=== PATIENT | female | born 1940 | race Caucasian/White ===

== ENCOUNTER 2017-10-01 14:11 | Emergency (ER) | payer MEDICARE, OTHER, SELFPAY ==
[2017-10-01 14:12] VITALS: BP 139/78; PULSE 78; RESP 20; TEMP 36.4; O2SAT 95; BMI 37.5
--- NOTE | 2017-10-01 14:43 | RAD_ITS ---
STUDY: X-RAY CHEST REASON FOR EXAM: Female, 77 years old. Sagittal onset of shortness of breath during chemotherapy. TECHNIQUE: Single AP portable view of the chest. COMPARISON: Comparison is made with prior study dated January 03, 2017. FINDINGS: A right-sided portacatheter is seen. The tip is in the proximal portion of the superior vena cava. Hyperinflation. Scattered calcified granulomas. No acute abnormality is seen. There is no demonstrated pleural abnormality. Sternal cerclage wires and vascular clips are present from a prior sternotomy and coronary artery bypass graft procedure (CABG). Normal mediastinum and vivek. Normal visualized pulmonary arteries. There is atherosclerotic calcification of the aortic arch with tortuosity. There are diffuse degenerative changes of the visualized thoracic spine. Normal visualized ribs, clavicles, and shoulders. There is no demonstrated abnormality of the visualized soft tissue structures of the upper abdomen. RAD/Chest 1 View (Portable) IMPRESSION: Hyperinflation. No acute abnormality is seen. Electronically Signed: Wang Holt MD at 15:19 EST Tel [phone], Service support ,
--- NOTE | 2017-10-01 14:44 | EKG12_ITS ---
Test Reason : SOB Blood Pressure : / mmHG Vent. Rate : 083 BPM Atrial Rate : 086 BPM P-R Int : 000 ms QRS Dur : 082 ms QT Int : 380 ms P-R-T Axes : 000 -40 047 degrees QTc Int : 446 ms Atrial fibrillation Left axis deviation Nonspecific ST abnormality Poor R wave progression Abnormal ECG Confirmed by SELINA CARVAJAL, ROCAEL ([id number]), editorial project manager NELL MCCOY ([id number]) on 10/02/2017 9:47:04 AM Referred By: MALIK Confirmed By:ROCAEL MARKS MD
[2017-10-01] MEDS: DiphenhydrAMINE 50 MG/ML Syringe 25 MG IV (15:06)
[2017-10-01] MEDS: 0.9% Normal Saline 1,000 ML 1000 ML IV (15:06)
[2017-10-01] MEDS: MethylPREDNISolone 125 MG/2 ML Vial IV (15:06)
[2017-10-01 15:10] VITALS: O2SAT 95
[2017-10-01 15:16] VITALS: PULSE 83; RESP 18; O2SAT 95
[2017-10-01] MEDS: Racepinephrine HCl 0.5 ML VIAL.NEB. 0.25 ML INHALATION (15:16)
[2017-10-01 16:22] VITALS: BP 142/70; PULSE 83; RESP 21; O2SAT 93
--- NOTE | 2017-10-01 16:31 | ED.VISSUMM ---
- ER Visit Summary Date of Service: 10/01/17 Chief Complaint: [Allergic reaction] History of Present Illness: The patient is a 77 F [who presents the emergency department with an allergic reaction. She was in oncology getting infusion of María uracil and 15 minutes after infusion started she got very short of breath started wheezing and felt like her throat was closing. She took her inhaler and by the time she arrived in the emergency department she was feeling somewhat better but if it did feel some heaviness in her chest and difficulty breathing. She had also gotten an infusion of oxaliplatin just prior to this. She has had anaphylaxis in the past requiring epinephrine. She has a history of coronary artery disease and status post CABG with stents. She has atrial fibrillation and is on Xarelto. She has metastatic colon cancer with metastases to the liver and lungs.] Physical Examination: [] Blood pressure 93 systolic pulse ox 92% on room air WN WD NAD PERRL EOMI MMM NECK supple and nontender, no masses RRR no murmur rub or gallop, no peripheral edema, symmetric radial pulses CTAB mild tachypnea, port right chest ABDOMEN is soft and nontender, normal bowel sounds, no distension, no rebound or guarding SKIN is warm and dry no rashes Alert and Oriented x3, CN II-XII in tact, no motor or sensory deficits, gait normal No lymphadenopathy Test Results: [] Emergency Department Course and Treatment: [EKG is atrial fibrillation at a rate of 83 there is no acute ischemic changes. Chest x-ray was unremarkable. She was given racemic epinephrine as well as Solu-Medrol and Benadryl. She was feeling improved but still had some slight heaviness in her chest. At that time I did send screening blood work and a flu swab that she said she has had a cough and runny nose for the past few days. Dr. Preston did evaluate her during this episode so they are aware of her reaction. I do anticipate that she will be discharged home. She will be reevaluated by oncoming physician.] Treatment Plan: [] Disposition: [Pending lab evaluation likely discharge] Impression: [Allergic reaction] This note was generated with [employer] dictation software. It may contain incorrect words, spelling, and punctuation that were not noted in review of the chart prior to signing ED Disposition - Plan for ED Patient: Chief Complaint: Allergic Reaction Referrals: Vernon Rosa MD [Primary Care Provider] -
--- NOTE | 2017-10-01 16:37 | ED.DEP ---
ED Disposition - Plan for ED Patient: Chief Complaint: Allergic Reaction Instructions: ED Allergic Reaction General Other Prescriptions: DiphenhydrAMINE [Benadryl] 25 mg PO TID PRN PRN #20 capsule PRN Reason: Allergies Prednisone [Deltasone] 40 mg PO DAILY #8 tablet Referrals: Sujit Vasquez DO [STAFF PHYSICIAN] -
[2017-10-01 16:52] LABS: Anion Gap 9 (5-15); BUN 15 mg/dL (7-18); BUN/Creat Ratio 10.7 RATIO (10-20); Calcium,Total 8.1 mg/dL (8.5-10.1); Chloride 103 mmol/L (98-107); EST Glomerular Filtration Rate 39 mL/min (>60); Est Glom Filt Rate - Afr Amer 47 mL/min (>60); Estimated Creatinine Clearance 27.46 ml/min; Glucose 228 mg/dL (74-106); Potassium 3.4 mmol/L (3.5-5.1); Sodium Level 137 mmol/L (136-145)
[2017-10-01 16:54] LABS: Absolute Neutrophil Count 1.1 X10^3/uL (2.0-7.7); Basophil# 0.01 X10^3/uL; Basophil% 0.6 % (0-1); Eosinophil# 0.01 X10^3/uL; Eosinophils% 0.6 % (0-5); Hemoglobin 11.2 g/dl (12.0-15.0); Lymphocyte % 25.6 % (19-41); Mean Corpuscular Hgb 31.1 pg (27.0-32.0); Mean Corpuscular Volume 97.2 fL (81-99); Mean Platelet Vol. 9.8 fl (6.2-12.0); Monocyte# 0.06 X10^3/uL; Monocyte% 3.8 % (0-10); Neutrophil # 1.07 X10^3/uL (2.7-7.7); Neutrophil % 68.8 % (47-70); Platelet Count 86 K/mm3 (150-450); RBC Distribution Width CV 14.5 % (11.6-14.6); RBC Distribution Width SD 51.3 fl (35.1-43.9); White Blood Count 1.6 K/mm3 (4.4-11.0)
[2017-10-01 16:56] LABS: Differential Indicated SCAN CRITERIA MET; POSITIVE COUNT NO; POSITIVE DIFFERENTIAL YES; POSITIVE MORPHOLOGY NO
--- NOTE | 2017-10-01 17:06 | ED.RN ---
rn received a call from lab. pt positive for flu a. dr. glez informed.
--- NOTE | 2017-10-01 17:54 | ED.DCSUM_ITS ---
- ER Visit Summary Date of Service: 10/01/17 Addendum: Patient was checked out to me by Dr. Guillory with labs pending. CBC has returned and her white count is 1.6 with 68.8% segmented neutrophils giving an absolute neutrophil count of 1088. H&H are 11.2 and 35.0, platelets are 86. Chem-7 is marked for potassium at 3.4, calcium 8.1, glucose of 228, creatinine 1.4. Troponin is negative. Chest x-ray shows no acute disease. She is positive for influenza A. Emergency department course: Patient's symptoms have resolved and she is resting comfortably. She was given a dose of Tamiflu p.o. Treatment plan: The patient was discussed with Dr. Vasquez. She will be discharged on Tamiflu instructed to follow-up with his office for further evaluation and treatment of the allergic reaction. Return to the emergency department for any worsening symptoms. Disposition: To home in improved and stable condition. Impression: 1. Allergic reaction. 2. Influenza A. 3. Pancytopenia. 4. Colon cancer with metastases on chemotherapy. This note was generated with [employer] software. It may contain incorrect words, spelling, and punctuation that were not noted in review of the chart prior to signing ED Disposition - Plan for ED Patient: Chief Complaint: Allergic Reaction Instructions: ED Allergic Reaction General Other, ED Flu Prescriptions: DiphenhydrAMINE [Benadryl] 25 mg PO TID PRN PRN #20 capsule PRN Reason: Allergies Prednisone [Deltasone] 40 mg PO DAILY #8 tablet Oseltamivir Phosphate [Tamiflu] 75 mg PO BID #10 capsule Referrals: Sujit Vasquez DO [STAFF PHYSICIAN] - 3-5 Days
[2017-10-01] MEDS: Oseltamivir Phosphate 75 MG Capsule PO (18:09)
[2017-10-01 18:16] VITALS: BP 143/71; PULSE 81; RESP 16; O2SAT 97
--- NOTE | 2017-10-01 18:18 | ED.RN ---
PT GIVEN WRITTEN AND VERBAL DISCHARGE INSTRUCTIONS AND HOME GOING PRESCRIPTIONS. THIS RN REVIEWED THEM WITH PT AND SPOUSE. PT VERBALIZES UNDERSTANDING. PT DENIES ANY QUESTIONS. PORT DEACCESSED BY THIS RN AND COVERED WITH 2X2 GAUZE DRESSING. MINIMAL BLEEDING NOTED. PT DRESSES SELF WITHOUT ASSISTANCE. WHEELED BY CHARGE NURSE TO FAMILY VEHICLE.
[2017-10-02 14:52] LABS: Pathologist Review Reviewed
== END 2017-10-01 18:20 | disposition home or self-care (01) ==
PROVIDERS: Emergency Provider Emergency Medicine; Family Provider Family Medicine; PCP Family Medicine
DX: R06.02 Shortness of breath (principal); T50.995A Adverse effect of other drugs, medicaments and biological substances, initial encounter; Y92.9 Unspecified place or not applicable; J10.1 Influenza due to other identified influenza virus with other respiratory manifestations; D61.818 Other pancytopenia; C18.9 Malignant neoplasm of colon, unspecified; C78.7 Secondary malignant neoplasm of liver and intrahepatic bile duct; C78.00 Secondary malignant neoplasm of unspecified lung; E66.9 Obesity, unspecified; I48.91 Unspecified atrial fibrillation; I25.10 Atherosclerotic heart disease of native coronary artery without angina pectoris; Z95.828 Presence of other vascular implants and grafts; Z95.1 Presence of aortocoronary bypass graft; Z95.5 Presence of coronary angioplasty implant and graft; Z87.892 Personal history of anaphylaxis; Z79.82 Long term (current) use of aspirin; Z79.01 Long term (current) use of anticoagulants; Z79.899 Other long term (current) drug therapy
CPT/HCPCS: 36591; 71045; 80048; 84484; 85025; 87804; 93005; 94640; 96361; 96374; 96375; 99285; J7030; A4216

== ENCOUNTER → 2017-10-18 09:57 | Outpatient (CLI) | payer MEDICARE, OTHER, SELFPAY ==
[2017-01-03 12:23] VITALS: BP 100/59; BP 100/64; BP 108/66
[2017-10-01 14:12] VITALS: BMI 37.5
[2017-10-01 18:16] VITALS: BP 143/71
--- NOTE | 2017-10-18 09:59 | CDU_ITS ---
Reason For Study: carotid stenosis Rt. Velocities/BP Lt. Velocities/BP Prox CCA 97.9/21.1 cm/sec. Prox CCA 106/18.9 cm/sec. Mid CCA 66.3/17.0 cm/sec. Mid CCA 73.9/19.3 cm/sec. Dist CCA 59.2/12.9 cm/sec. Dist CCA 75.0/15.2 cm/sec. Prox ICA 96.7/29.9 cm/sec. Prox ICA 79.7/25.2 cm/sec. Mid ICA 101/35.8 cm/sec. Mid ICA 101/30.5 cm/sec. Dist ICA 90.9/29.9 cm/sec. Dist ICA 79.2/24.6 cm/sec. Rt. ICA/CCA = 1.5. Lt. ICA/CCA = 1.4. Prox ECA 85.6/8.64 cm/sec. Prox ECA 79.2/7.62 cm/sec. Rt. Vert. 40.9/11.4 cm/sec. Lt. Vert. 40.7/12.9 cm/sec. Right Extracranial There is homogeneous, smooth atherosclerotic plaque noted in the right common carotid artery. There is heterogeneous, irregular atherosclerotic plaque noted in the right internal carotid artery. There is heterogeneous, irregular atherosclerotic plaque noted in the right external carotid artery. Antegrade flow is noted in the right vertebral artery. Left Extracranial There is intimal thickening but no significant atherosclerotic plaque noted in the left common carotid artery. There is homogeneous, smooth atherosclerotic plaque noted in the left internal carotid artery. There is intimal thickening but no significant atherosclerotic plaque noted in the left external carotid artery. Antegrade flow is noted in the left vertebral artery. Procedure Carotid Duplex 45068. The exam was diagnostic. Exam performed in department. Interpretation Summary Mild (<50%) stenosis right extracranial internal carotid. Mild (<50%) stenosis left extracranial internal carotid. Flow within the vertebral arteries is antegrade bilaterally. Ordering Physician: CHOCO ABDALLA Performed By: Madhav Hobbs RVT
== END ==
PROVIDERS: Family Provider Family Medicine; PCP Family Medicine; Visit Provider Surgery Vascular Surgery
DX: I25.10 Atherosclerotic heart disease of native coronary artery without angina pectoris (principal); I65.23 Occlusion and stenosis of bilateral carotid arteries
CPT/HCPCS: 93880

== ENCOUNTER → 2017-11-20 10:54 | Outpatient (CLI) | payer MEDICARE, OTHER, SELFPAY ==
--- NOTE | 2017-11-20 11:30 | BRBX_PTH ---
PATIENT: DIANA COKER LOC: [facility] U#:[id number] AGE/SX: 84/F ROOM: RE11/20/[address]: Dr. Watson Elmore MD : 1940 BED: DIS: SPEC #: [id number] RECD: 11/20/17 12:16 STATUS: WILIAN JULITA #: [id number] NOLA: 11/20/17 11:[address]: Watson Elmore DEPT: SURGICAL PATHOLOGY RECD BY: Watson Barclay ENTERED: 11/20/17 13:12 SP TYPE: BREAST BX OTHR DR: Dr. Vernon Rosa MD Tissues: Left breast, NOS Procedures: Surgery Specimen Level IV HEADER OPERATION: Left stereotactic breast biopsy PRE-OP DIAGNOSIS: Left breast, 9 o?clock anterior depth, microcalcifications TISSUE SUBMITTED: Left breast core tissue ISCHEMIC TIME: 1 minute FIXATION TIME: 8 hours MICROSCOPIC DIAGNOSIS Left breast, 9 o?clock anterior depth, stereotactic core biopsy: Fibrocystic change. Focal intraductal hyperplasia without atypia. Hyalinized nodule with clustered microcalcifications. No evidence of malignancy. AM:carmen 11/21/17 MICROSCOPIC DESCRIPTION Slides are reviewed. GROSS DESCRIPTION Received is one container labeled with the patient's name and not further designated. The specimen consists of multiple elongated fragments of theodore-yellow fibroadipose tissue that in aggregate measure 5 x 3 x 0.6 cm. The entire specimen is submitted in four cassettes. / WINSTON:carmen 11/20/17 TC:5 CPT: 06051
--- NOTE | 2017-11-20 12:14 | OP.PCM_ITS ---
Report of Operation Date of Procedure: 11/20/17 Pre-Operative Diagnosis: left medical breast microcalcifications Post-Operative Diagnosis: left medical breast microcalcifications - successful biopsy Surgery/Procedure Performed:: left breast stereotactic biopsy with specimen radiograph and marker placement nuclear process engineer: None Type of Anesthesia:: Local Specimen's removed: left breast tissue Description of Procedure: The patient was brought to the stereotactic suite and informed of the plan course of events. The left breast was positioned in the true medial to lateral position on the Perera stereotactic table. Mammographic image demonstrated the area of abnormality to be located in the center of the radiograph. Stereotactic images were then obtained which demonstrated good positioning of the abnormality for biopsy with good stroke leida parameters. The breast was cleaned with Betadine area did one percent lidocaine was used to anesthetize the skin and a small stab incision made. An 8-gauge mammotome needle was placed into the pre-fire position. Stereotactic images demonstrated good positioning around the planned biopsy site. Local anesthetic injected deeply in the breast. The needle was deployed. Post deployment images demonstrated good positioning of the planned biopsy site. Multiple vacuum-assisted samples were obtained and [id number] fashion. Specimen radiograph demonstrated micro-calcifications in the sample. A gel marker clip was deployed. Post biopsy images demonstrated good position of the clip relative the biopsy cavity. The breast was removed from compression. Steri-Strips and a dressing applied. Post procedure mammogram images were obtained.
== END ==
PROVIDERS: Family Provider Family Medicine; PCP Family Medicine; Visit Provider Surgery
DX: N60.12 Diffuse cystic mastopathy of left breast (principal); N60.92 Unspecified benign mammary dysplasia of left breast; R92.0 Mammographic microcalcification found on diagnostic imaging of breast
CPT/HCPCS: 19081; 88305; J7050; A4648

== ENCOUNTER 2017-12-13 11:56 | Emergency (ER) | payer MEDICARE, OTHER, SELFPAY ==
[2017-12-13 11:57] VITALS: BP 144/71; PULSE 62; RESP 15; TEMP 35.9; O2SAT 97; BMI 38.4
--- NOTE | 2017-12-13 12:22 | EKG12_ITS ---
Test Reason : JAW PAIN Blood Pressure : / mmHG Vent. Rate : 068 BPM Atrial Rate : 107 BPM P-R Int : 000 ms QRS Dur : 082 ms QT Int : 418 ms P-R-T Axes : 000 -31 014 degrees QTc Int : 444 ms Atrial fibrillation Left axis deviation Low voltage QRS Poor R wave progression Abnormal ECG Confirmed by SELINA CARVAJAL, ROCAEL ([id number]), scientific editor NELL MCCOY ([id number]) on 12/18/2017 3:26:45 PM Referred By: FELECIA/LIANNE Confirmed By:ROCAEL MARKS MD
[2017-12-13 12:24] VITALS: BP 123/55; BP 130/80; BP 139/74; PULSE 60; PULSE 70; PULSE 84
--- NOTE | 2017-12-13 12:35 | RAD_ITS ---
STUDY: X-RAY CHEST REASON FOR EXAM: Female, 77 years old. Shortness of breath and dizziness. TECHNIQUE: Single AP portable view of the chest. COMPARISON: Comparison is made with prior study dated October 01, 2017. FINDINGS: A right-sided portacatheter is seen with the tip at the junction of the superior vena cava and right atrium. EKG electrodes are seen. Scattered calcified granulomas. There is no demonstrated pleural abnormality. Sternal cerclage wires and vascular clips are present from a prior sternotomy and coronary artery bypass graft procedure (CABG). Normal mediastinum and vivek. Normal visualized pulmonary arteries. There is atherosclerotic calcification of the aortic arch with tortuosity. There are diffuse degenerative changes of the visualized thoracic spine. Normal visualized ribs, clavicles, and shoulders. There is no demonstrated abnormality of the visualized soft tissue structures of the upper abdomen. RAD/Chest 1 View (Portable) IMPRESSION: No acute adenopathy is seen. Electronically Signed: Wang Holt MD at 12:58 EDT Tel [phone], Service support ,
--- NOTE | 2017-12-13 13:15 | ED.VISSUMM ---
- ER Visit Summary Date of Service: 12/13/17 Chief Complaint: Vertigo History of Present Illness: The patient is a [address] Bledsoe, Dr. Cage, and Dr. Vernon Rosa. She reports this morning approximately 810 she had been standing for a few minutes when she had an episode where she felt very lightheaded and had a sense of movement. This lasted 2-3 minutes. It resolved with sitting down. She reports that approximately 30 minutes later she had tingling in her jaw bilaterally and tightening in the muscles of her jaw. She denies any chest pain or shortness of breath during this. She denies any change in her vision. No numbness or tingling. She does have generalized weakness. Patient is currently on chemotherapy for colon cancer and finished a 3 day course yesterday. She denies any fever. No sore throat. She has a chronic cough is unchanged. No abdominal pain. She has had nausea without vomiting or diarrhea. No dysuria or frequency. Physical Examination: Vitals: Stable. Afebrile. General: Well-nourished and well-developed. Head: Normocephalic atraumatic. Neck: Supple, no lymphadenopathy. No JVD. Nontender. Cardiovascular: Regular rate and rhythm. No murmurs. Respiratory: No respiratory distress. Clear to auscultation bilaterally. Abdominal: Soft, nontender, nondistended, normal bowel sounds. No guarding, rebound, or peritoneal signs. Back: Nontender. Extremities: Nontender, no edema. Skin: Normal color, no rash. Neurologic: Alert and oriented ?3. Cranial nerves II through XII are intact. Normal strength and sensation. Psych: Normal affect. Test Results: Patient was seen by Dr. Vasquez in the office prior to arrival and had blood work obtained. CBC was remarkable for a white count of 2.4 and an H&H 11.0 34.0. Chem-7 is marked for glucose of 242 and BUN 27. Magnesium was normal. In the emergency department EKG was obtained shows atrial fibrillation rate of 60 with no ischemic changes. This was unchanged from September 2017. Troponin was negative. Chest x-ray shows chronic changes. Emergency Department Course and Treatment: Patient had positive orthostatic vital signs here. Heart rate increased from 60-84 with standing and she was lightheaded. Her blood pressure was stable however. She is given a 500 cc bolus of normal saline. Treatment Plan: Patient feels improved and would like to go home. She will be discharged instructions to follow-up Dr. Vasquez as previous scheduled. Follow-up Dr. Vernon Rosa in 1-2 days if not improving. Return to the emergency department for any worsening symptoms. Disposition: To home in improved and stable condition. Impression: 1. Orthostatic hypotension. 2. Coagulopathy on Xarelto. 3. Atrial fibrillation. 4. Colon cancer on chemotherapy. This note was generated with [employer] dictation software. It may contain incorrect words, spelling, and punctuation that were not noted in review of the chart prior to signing ED Disposition - Plan for ED Patient: Disposition: Home or Assisted Living Chief Complaint: Dizziness Instructions: ED Hypotension Orthostatic Referrals: Vernon Rosa MD [Primary Care Provider] - 1-2 Days if not improving Sujit Vasquez DO [STAFF PHYSICIAN] - Keep Paul appointment
[2017-12-13 13:43] VITALS: BP 120/62; PULSE 63; RESP 21; O2SAT 97
--- NOTE | 2017-12-13 13:44 | ED.RN ---
THIS NURSE REVIEWED D/C INSTRUCTIONS WITH PT. PT VERBALIZED UNDERSTANDING OF INSTRUCTIONS. PORT DE-ACCESSED. PT TOLERATED WELL. PT DENIES FURTHER NEEDS OR QUESTIONS AT THIS TIME.
== END 2017-12-13 13:45 | disposition home or self-care (01) ==
PROVIDERS: Emergency Provider Emergency Medicine; Family Provider Family Medicine; PCP Family Medicine
DX: I95.1 Orthostatic hypotension (principal); D68.9 Coagulation defect, unspecified; Z79.01 Long term (current) use of anticoagulants; I48.91 Unspecified atrial fibrillation; C18.9 Malignant neoplasm of colon, unspecified; R60.0 Localized edema; I25.10 Atherosclerotic heart disease of native coronary artery without angina pectoris; J45.909 Unspecified asthma, uncomplicated; E11.9 Type 2 diabetes mellitus without complications; I10 Essential (primary) hypertension; E78.00 Pure hypercholesterolemia, unspecified; G47.33 Obstructive sleep apnea (adult) (pediatric); Z85.3 Personal history of malignant neoplasm of breast; Z95.1 Presence of aortocoronary bypass graft; Z79.82 Long term (current) use of aspirin; Z79.899 Other long term (current) drug therapy
CPT/HCPCS: 36591; 71045; 84484; 93005; 96360; 99283; J7040; A4216

== ENCOUNTER 2017-12-24 21:08 | Emergency (ER) | payer MEDICARE, OTHER, SELFPAY ==
[2017-12-24 21:09] VITALS: BP 154/99; PULSE 79; RESP 18; TEMP 36.6; O2SAT 95; BMI 39.6
--- NOTE | 2017-12-24 21:52 | EKG12_ITS ---
Test Reason : FATIGUE Blood Pressure : / mmHG Vent. Rate : 071 BPM Atrial Rate : 288 BPM P-R Int : 000 ms QRS Dur : 082 ms QT Int : 406 ms P-R-T Axes : 000 -23 022 degrees QTc Int : 441 ms Atrial fibrillation Leftward axis Poor R wave progression Confirmed by LESLIE VIGIL ([id number]), society editor NELL MCCOY ([id number]) on 12/26/2017 9:36:59 AM Referred By: DIPIKA Confirmed By:LESLIE VIGIL
--- NOTE | 2017-12-24 21:55 | RAD_ITS ---
STUDY: X-RAY CHEST REASON FOR EXAM: Female, 77 years old. Lung cancer TECHNIQUE: Single frontal view COMPARISON: December 13 2017 FINDINGS: Sternotomy wires over the mediastinum. Right venous port with tip at the mid SVC level. The lungs are expanded. Stable right lung base calcified granuloma. Cardiomegaly.. Normal mediastinum and vivek. Normal visualized pulmonary arteries. Calcified aortic arch and descending thoracic aorta. Mild degenerative changes and scoliosis of the thoracic spine. Normal visualized ribs, clavicles, and shoulders. There is no demonstrated abnormality of the visualized soft tissue structures of the upper abdomen. RAD/Chest 1 View (Portable) IMPRESSION: Stable right lung base calcified granuloma. Stable cardiomegaly. Electronically Signed: Polo Herrera DO at 22:11 EDT Tel [phone], Service support ,
[2017-12-24] MEDS: 0.9% Normal Saline 1,000 ML 1000 ML IV (22:15)
[2017-12-24 22:38] LABS: Absolute Lymphocyte Count 0.33 X10^3/ul (0.83-4.51); Absolute Neutrophil Count 1.2 X10^3/uL (2.0-7.7); Hematocrit 32.1 % (37-47); Hemoglobin 10.4 g/dl (12.0-15.0); Lymphocyte # 0.33 X10^3/ul (4.0); Lymphocyte % 21.6 % (19-41); Mean Corp Hgb Conc 32.4 g/gl (32-36); Mean Corpuscular Hgb 32.8 pg (27.0-32.0); Mean Corpuscular Volume 101.3 fL (81-99); Mean Platelet Vol. 9.6 fl (6.2-12.0); Monocyte# 0.02 X10^3/uL; Monocyte% 1.3 % (0-10); Neutrophil # 1.18 X10^3/uL (2.7-7.7); Neutrophil % 77.1 % (47-70); Platelet Count 172 K/mm3 (150-450); RBC Distribution Width CV 15.5 % (11.6-14.6); RBC Distribution Width SD 57.2 fl (35.1-43.9); Red Blood Count 3.17 M/mm3 (4.2-5.4); White Blood Count 1.5 K/mm3 (4.4-11.0)
[2017-12-24 22:40] LABS: Differential Indicated SCAN CRITERIA MET; POSITIVE COUNT NO; POSITIVE DIFFERENTIAL YES; POSITIVE MORPHOLOGY NO
[2017-12-24 22:44] LABS: ALB/GLOB Ratio 0.9 RATIO (0.9-2.4); AST(SGOT) 32 U/L (15-37); Alanine Aminotransfer ALT/SGPT 46 U/L (13-56); Albumin, Serum 3.3 g/dL (3.2-5.0); Alkaline Phosphatase 187 U/L (45-117); Anion Gap 8 (5-15); BUN 22 mg/dL (7-18); BUN/Creat Ratio 13.9 RATIO (10-20); Calcium,Total 9.2 mg/dL (8.5-10.1); Chloride 102 mmol/L (98-107); Creatinine, Serum 1.58 mg/dL (0.55-1.02); EST Glomerular Filtration Rate 34 mL/min (>60); Est Glom Filt Rate - Afr Amer 41 mL/min (>60); Estimated Creatinine Clearance 25.45 ml/min; Globulin 3.7 g/dL (2.2-4.2); Glucose 193 mg/dL (74-106); Potassium 4.1 mmol/L (3.5-5.1); Sodium Level 136 mmol/L (136-145)
--- NOTE | 2017-12-24 22:54 | ED.DCSUM_ITS ---
- ER Visit Summary Date of Service: 12/24/17 Chief Complaint: Weakness, fatigue History of Present Illness: The patient is a 77 F presents to the emergency department with transient weakness and fatigue. The patient has a history of metastatic cancer. She is on chemotherapy. This is her fourth round of treatment. She has been following with Dr. Vasquez. She had her infusion today. She states that about 5:00, she just felt like she was mildly short of breath and lightheaded and dizzy. States it lasted about 5 minutes. It then returned at about 9:00 tonight. States that it lasted another 5 minutes and then went away. She states she had the same symptoms before during her treatment when she was found to be dehydrated. She denies any chest pain. She has had cough, but states this is chronic. She has had no productive sputum. She denies any fevers. She denies any chills or sweats. She denies any other systemic symptoms. On arrival, she states that she feels back to baseline. Physical Examination: Vital signs reviewed General: Well-nourished, well-developed Head: Normocephalic, atraumatic Eyes: Pupils equal and reactive, extraocular muscles intact Neck, supple, no lymphadenopathy Heart: Regular rate and rhythm Respiratory: No distress, clear bilaterally Abdomen: Soft, nontender, nondistended, no peritoneal signs Back: Nontender Extremities: Nontender, no edema, no cords Skin: Normal color no rash Neuro: Alert and oriented, no focal or lateralizing deficits Test Results: [] Emergency Department Course and Treatment: The patient's symptoms have basically resolved on arrival. She was given IV fluids. I did obtain some screening labs. Her white blood cells are diminished 1.5, but absolute neutrophil count is greater than thousand. She has had no fever or other infectious symptoms. She does have some evidence of dehydration with a creatinine of 1.6. The patient was aggressively hydrated. She has had improvement of symptoms and no recurrence. She has a benign reassuring exam. I do feel that this is more likely a side effect from her chemotherapy. The patient wants to attempt outpatient therapy and I feel this is reasonable. She will be discharged home. Treatment Plan: [] Disposition: Discharge Impression: 1. Dehydration secondary to chemotherapy This note was generated with [employer] software. It may contain incorrect words, spelling, and punctuation that were not noted in review of the chart prior to signing ED Disposition - Plan for ED Patient: Chief Complaint: Fatigue Instructions: ED Weakness [facility]O Referrals: Vernon Rosa MD [Primary Care Provider] -
[2017-12-24 23:02] LABS: Differential Comment SCANNED
[2017-12-24 23:53] VITALS: BP 145/79; PULSE 65; RESP 20; O2SAT 95
[2017-12-25 14:28] LABS: Pathologist Review Reviewed
== END 2017-12-24 23:54 | disposition home or self-care (01) ==
LOC: ED 22:09
PROVIDERS: Emergency Provider Emergency Medicine; Family Provider Family Medicine; PCP Family Medicine
DX: E86.0 Dehydration (principal); Z79.899 Other long term (current) drug therapy; C80.1 Malignant (primary) neoplasm, unspecified; Z85.3 Personal history of malignant neoplasm of breast; Z79.82 Long term (current) use of aspirin
CPT/HCPCS: 71045; 80053; 85025; 93005; 96360; 96361; 96365; 96366; 99284; J7030; A4216

== ENCOUNTER 2018-01-16 07:56 | Day surgery (SDC) | payer MEDICARE, OTHER, SELFPAY ==
[2018-01-16] VITALS (7 sets, daily range): BP systolic 108–142; BP diastolic 58–75; PULSE 75–100; RESP 16; TEMP 36.1–36.7; O2SAT 95–97; BMI 37.4
--- NOTE | 2018-01-16 | BREAST_PTH ---
PATIENT: DIANA COKER LOC: [facility] U#:[id number] AGE/SX: 77/F ROOM: RE01/16/[address]: Dr. Watson Elmore MD : 1940 BED: DIS: 01/16/2018 SPEC #: [id number] RECD: 01/16/18 15:36 STATUS: WILIAN JULITA #: [id number] NOLA: 01/16/18 00:[address]: Watson Elmore DEPT: SURGICAL PATHOLOGY RECD BY: Sidney Diaz ENTERED: 01/17/18 08:14 SP TYPE: BREAST OTHR DR: Dr. Vernon Rosa MD Tissues: Left breast, NOS Procedures: Surgery Specimen Level V HEADER OPERATION: Left intraoperative ultrasound-guided needle placement PRE-OP DIAGNOSIS: Left nipple discharge; questionable intraductal papilloma TISSUE SUBMITTED: Left breast biopsy tissue, wire is medial to lateral, suture is superficial FIXATION TIME: 48 hours MICROSCOPIC DIAGNOSIS Left breast, needle localization biopsy: Fatty breast tissue with focal ductal dilation. Negative for atypia or malignancy. SJ:carmen 01/22/18 COMMENT Correlation with clinical, radiologic findings and appropriate follow up are necessary. Please make reference to previous specimen ([id number]) left breast, 9 o?clock, stereotactic core biopsy with diagnosis of fibrocystic change and focal intraductal hyperplasia without atypia and hyalinized nodule with clustered microcalcifications and no evidence of malignancy and ([id number]) left breast, stereotactic core biopsy with diagnosis of ductal carcinoma in situ. MICROSCOPIC DESCRIPTION Slides are reviewed. GROSS DESCRIPTION Received in fixative is one container labeled with the patient's name and designated left breast. The specimen consists of a piece of theodore-yellow fibroadipose tissue measuring 3.5 x 2 x 1.5 cm. The specimen is oriented as follows: suture is superficial and wire is medial to lateral. The specimen is inked as follows: anterior ? yellow, posterior ? black, superior ? blue, inferior ? green, medial ? orange, lateral ? red. The specimen is serially sectioned and no obvious mass lesion is identified. The entire specimen is submitted in six cassettes. Cassette 1 contains the most medial portion of the specimen and cassette 6 contains the most lateral portion of the specimen. The specimen will be submitted after infusion cycle. / WINSTON:carmen 01/17/18 TC:5 CPT: 16425
[2018-01-16] MEDS: Clindamycin 600 MG/50 ML BAG 100 MG IV (09:38)
[2018-01-16] MEDS: Bupivacaine Mpf 0.5% 30 ML VIAL (10:30)
--- NOTE | 2018-01-16 10:36 | OP.PCM_ITS ---
Report of Operation Date of Procedure: 01/16/18 Pre-Operative Diagnosis: LEFT NIPPLE DISCHARGE, ? INTRADUCTAL PAPILLOMA Post-Operative Diagnosis: LEFT NIPPLE DISCHARGE, ? INTRADUCTAL PAPILLOMA - SUCCESSFUL BIOPSY Surgery/Procedure Performed:: LEFT ULTRASOUND GUIDED NEEDLE LOCALIZATION EXCISIONAL BREAST BIOPSY telecom sales consultant: Demetris Doan Type of Anesthesia:: General Anesthesiologist: Patrick Mcneil ASA3 Specimen's removed: left breast Estimated Blood Loss (mL): minimal Fluids Replaced: 400 Description of Procedure: The patient was then brought to the operative suite. Sign was performed verifying patient, site, position, SCIP antibiotic prophylaxis-clindamycin 600 mg due to penicillin allergy was given and DVT prophylaxis with SCDs. Following LMA anesthesia, ultrasound was then used to evaluate the abnormality in the medial aspect of the left breast just at the margin of the nipple areolar complex, slightly inferior and medial. The 4 mm abnormality was identified and a Kopan's wire was placed under ultrasound guidance just deep to the abnormality.and the limits of the mass and planned resection were marked on the skin using ultrasound guidance. the proper breast-left breast are marked in the holding area prior to the patient being brought back. A curvilinear incision was made at the nipple areolar complex and dissection carried down to subcutaneous breast tissue and then flared out such that a good margin would be obtained in all axes. When the specimen was removed, the wire came from the medial to lateral aspect. A solitary suture was placed at the superficial site just posterior to the skin of the nipple area complex. There were felt to be good resection margins.. The specimen was then brought to the pathology department for permanent evaluation. breast tissue just below the skin was reapproximated with interrupted 3-0 Vicryl sutures. Skin was closed with 5-0 Biosyn running subcuticular suture. Dermabond was applied to the skin the patient was awakened and brought to recovery in stable condition.
--- NOTE | 2018-01-16 10:37 | PCM.DCBBX ---
Discharge Diet: No Restrictions Discharge Activity: Return to Normal Activity May shower in (days): 3 Remove Dressing in (days):: 3 - Leave Dermabond in place. Allergies/Adverse Reactions: Allergies hunt Allergy (Verified 01/09/18 14:18) Shortness of breath nadolol [From Corgard] Allergy (Verified 01/09/18 14:18) Hives Penicillins Allergy (Verified 01/09/18 14:18) Hives pitavastatin [From Livalo] Allergy (Verified 01/09/18 14:18) myalgia pravastatin sodium [From Pravachol] Allergy (Verified 01/09/18 14:18) Hives sulfite Allergy (Verified 01/09/18 14:18) Hives atorvastatin calcium [From Lipitor] Adverse Reaction (Verified 01/09/18 14:18) Pain in joints morphine Adverse Reaction (Verified 01/09/18 14:18) chest pain CHEST PAINS AND SOB Medications to take at Discharge Aspirin 81 mg PO DAILY 01/03/17 Cholecalciferol (Vitamin D3) [Vitamin D3] 4,000 unit PO DAILY 01/03/17 Mometasone Furoate [Asmanex 220 mcg Twisthaler] 2 puff INHALATION DAILY 01/03/17 acetaminophen 500 mg tablet 1,000 mg PO PRN PRN tab 08/17/17 albuterol sulfate HFA 90 mcg/actuation aerosol inhaler 2 puff INHALATION Q4H PRN PRN 16 Days #18 08/17/17 diphenhydramine 25 mg capsule 50 mg PO PRN PRN 0 Days 08/17/17 epinephrine 0.3 mg/0.3 mL injection, auto-injector 0.3 ml SC PRN PRN 1 Days #2 ea 08/17/17 hydrocortisone 2.5 % topical cream 1 applic TOPICAL TID PRN PRN 10 Days #30 08/17/17 loratadine 10 mg tablet 10 mg PO DAILY PRN PRN 0 Days 08/17/17 montelukast 10 mg tablet 10 mg PO QDAY PRN tab 08/17/17 isosorbide mononitrate ER 60 mg tablet,extended release 24 hr 60 mg PO DAILY #90 tab 08/21/17 lisinopril 10 mg tablet 10 mg PO DAILY #90 tab 08/21/17 magnesium oxide 400 mg tablet 400 mg PO BID #180 tab 08/21/17 nitroglycerin 0.4 mg sublingual tablet 0.4 mg SUBLINGUAL Q5M PRN #25 tab 08/21/17 omeprazole 20 mg tablet,delayed release 20 mg PO DAILY #90 tab 09/25/17 Clotrimazole/Betamethasone Dip [Lotrisone Cream] 1 applic TP BID 10/01/17 Potassium Chloride [Klor-Con M20] 20 meq PO DAILY 10/01/17 rivaroxaban 15 mg tablet 20 mg PO QDAY tab 11/07/17 Furosemide [Lasix] 40 mg PO BID 12/13/17 Simvastatin [Zocor] 20 mg PO QHS 12/24/17 metoprolol tartrate 25 mg tablet 25 mg PO BID #180 tab 01/14/18 Primary Care Physician: Vernon Rosa MD [Primary Care Provider] - Please Follow Up With: Watson Elmore MD - [phone] When: Please call for an appointment to be seen in one week.
== END 2018-01-16 12:05 | disposition home or self-care (01) ==
LOC: SDC 07:57 → AC 07:58
PROVIDERS: Family Provider Family Medicine; PCP Family Medicine; Visit Provider Surgery
PROC: (CPT 19083; principal; 2018-01-16 09:15)
DX: N64.52 Nipple discharge (principal); Z85.038 Personal history of other malignant neoplasm of large intestine; Z85.05 Personal history of malignant neoplasm of liver; E11.9 Type 2 diabetes mellitus without complications; K21.9 Gastro-esophageal reflux disease without esophagitis; Z86.718 Personal history of other venous thrombosis and embolism; D64.9 Anemia, unspecified; K58.9 Irritable bowel syndrome, unspecified; Z79.899 Other long term (current) drug therapy; Z79.82 Long term (current) use of aspirin; I48.91 Unspecified atrial fibrillation; I10 Essential (primary) hypertension; Z95.1 Presence of aortocoronary bypass graft; I25.10 Atherosclerotic heart disease of native coronary artery without angina pectoris; I25.2 Old myocardial infarction; G47.30 Sleep apnea, unspecified; E78.5 Hyperlipidemia, unspecified
CPT/HCPCS: 19125; 88307; J7120; A4216

== ENCOUNTER 2018-07-29 17:20 | Emergency (ER) | payer MEDICARE, OTHER, SELFPAY ==
[2018-03-05 13:26] VITALS: BMI 37.5
[2018-07-29 17:23] VITALS: BP 158/84; PULSE 71; RESP 17; TEMP 36.7; O2SAT 98; BMI 39.4
--- NOTE | 2018-07-29 18:45 | RAD_ITS ---
STUDY: X-RAY CHEST REASON FOR EXAM: Female, 77 years old. Nausea/vomiting TECHNIQUE: PA and lateral views of the chest. COMPARISON: 12/24/2017 FINDINGS: Stable appearance of a right subclavian port, tip in the distal SVC. There are interstitial fibrotic changes of the lungs. There is no demonstrated pleural abnormality. Normal size heart. Normal mediastinum and vivek. Normal visualized pulmonary arteries. There is atherosclerotic calcification of the aortic arch with tortuosity. There are diffuse degenerative changes of the visualized thoracic spine. Normal visualized ribs, clavicles, and shoulders. There is no demonstrated abnormality of the visualized soft tissue structures of the upper abdomen. RAD/Chest PA and Lateral IMPRESSION: Degenerative changes, as described above. No demonstrated acute cardiopulmonary process. Electronically Signed: Kain Hernandez MD at 18:58 EST , Service support ,
[2018-07-29 18:53] LABS: Absolute Lymphocyte Count 1.22 X10^3/ul (0.83-4.51); Eosinophil# 0.01 X10^3/uL; Eosinophils% 0.3 % (0-5); Hematocrit 34.4 % (37-47); Hemoglobin 10.8 g/dl (12.0-15.0); Lymphocyte # 1.22 X10^3/ul (4.0); Lymphocyte % 34.6 % (19-41); Mean Corp Hgb Conc 31.4 g/gl (32-36); Mean Corpuscular Hgb 30.6 pg (27.0-32.0); Mean Corpuscular Volume 97.5 fL (81-99); Monocyte# 0.25 X10^3/uL; Monocyte% 7.1 % (0-10); Neutrophil # 2.04 X10^3/uL (2.7-7.7); Neutrophil % 57.7 % (47-70); Platelet Count 177 K/mm3 (150-450); RBC Distribution Width CV 14.8 % (11.6-14.6); RBC Distribution Width SD 52.7 fl (35.1-43.9); Red Blood Count 3.53 M/mm3 (4.2-5.4); White Blood Count 3.5 K/mm3 (4.4-11.0)
[2018-07-29 18:55] LABS: POSITIVE COUNT NO; POSITIVE DIFFERENTIAL NO; POSITIVE MORPHOLOGY NO
[2018-07-29 19:06] LABS: Anion Gap 7 (5-15); BUN 28 mg/dL (7-18); BUN/Creat Ratio 26.4 RATIO (10-20); Calcium,Total 8.4 mg/dL (8.5-10.1); Chloride 103 mmol/L (98-107); Creatinine, Serum 1.06 mg/dL (0.55-1.02); EST Glomerular Filtration Rate 54 mL/min (>60); Est Glom Filt Rate - Afr Amer 65 mL/min (>60); Estimated Creatinine Clearance 37.93 ml/min; Glucose 103 mg/dL (74-106); Potassium 3.8 mmol/L (3.5-5.1); Sodium Level 138 mmol/L (136-145)
--- NOTE | 2018-07-29 19:31 | ED.VISSUMM ---
- ER Visit Summary Date of Service: 07/29/18 Chief Complaint: Paresthesia right and left side of face, distal right and left leg and feet History of Present Illness: The patient is a 77 F who presents because of bilateral facial paresthesia, bilateral distal leg paresthesia and feet paresthesia. She states she has had these symptoms since chemotherapy. He is on chemotherapy for stage IV colon cancer. She denies double vision, blurred vision loss of vision. She denies trouble with speech or swallowing. She denies chest pain, palpitations, orthopnea, dyspnea on exertion or PND. She denies shortness of breath, cough hemoptysis or pleuritic chest pain. She does report nausea. She states the nausea is minimal and did not think significant and reason she did not take Zofran prior to arrival. She does report frequency after chemotherapy. She denies dysuria, urgency or hematuria. She denies abdominal pain or bilateral flank pain. She denies symptoms of claudication. Review of systems otherwise negative and please read written note Her past medical history coronary disease, [place], diabetes, hypertension, hypercholesterolemia, breast cancer and stage IV colon cancer. She has history of atrial fibrillation. Physical Examination: Vital signs noted and blood pressure elevated 158/84. She appears pale. Head is atraumatic normocephalic. Pupils are equal round reactive. Extraocular muscles are intact. TMs are pearly white with landmarks noted. Nares patent with no drainage. Posterior pharynx without erythema or exudate. Uvula is midline. There is no dysphonia or dysphasia. Trachea is midline. There is no stridor with auscultation of the neck. Heart is regular without murmur, gallop or rub. S1 and S2 are normal. Lungs are clear to auscultation with good movement of air bilaterally. Abdomen is soft nontender bowel sounds are present normal. There is no asymmetry, swelling, discoloration, leg vein distention, palpable cords or tenderness along the distribution of the deep venous system. DP and PT pulses are palpable but diminished. They are symmetric. Neuro exam is nonfocal. Affect is normal. Test Results: CBC reveals a white count of 3.5 with an H&H 10.8 and 34.4. BUN and creatinine are 28 and 1.06. The ratio is elevated. This would indicate prerenal azotemia. Emergency Department Course and Treatment: To assess patient's symptoms electro panel was obtained. Since she appears pale a CBC was obtained. Treatment Plan: Discharge to follow-up with oncologist Disposition: Discharged to home with spouse in stable condition Impression: Bilateral paresthesia secondary to chemo therapy This note was generated with [employer] dictation software. It may contain incorrect words, spelling, and punctuation that were not noted in review of the chart prior to signing ED Disposition - Plan for ED Patient: Disposition: Home or Assisted Living Chief Complaint: Numb/Ting Instructions: ED Neuropathy Peripheral Referrals: Vernon Rosa MD [Primary Care Provider] - As Needed
--- NOTE | 2018-07-29 19:35 | ED.DCSUM_ITS ---
- ER Visit Summary Date of Service: 07/29/18 Chief Complaint: Paresthesia right and left side of face, distal right and left leg and feet History of Present Illness: The patient is a 77 F who presents because of bilateral facial paresthesia, bilateral distal leg paresthesia and feet paresthesia. She states she has had these symptoms since chemotherapy. He is on chemotherapy for stage IV colon cancer. She denies double vision, blurred vision loss of vision. She denies trouble with speech or swallowing. She denies chest pain, palpitations, orthopnea, dyspnea on exertion or PND. She denies shortness of breath, cough hemoptysis or pleuritic chest pain. She does report nausea. She states the nausea is minimal and did not think significant and reason she did not take Zofran prior to arrival. She does report frequency after chemotherapy. She denies dysuria, urgency or hematuria. She denies a bdominal pain or bilateral flank pain. She denies symptoms of claudication. Review of systems otherwise negative and please read written note Her past medical history coronary disease, [place], diabetes, hypertension, hypercholesterolemia, breast cancer and stage IV colon cancer. She has history of atrial fibrillation. Physical Examination: Vital signs noted and blood pressure elevated 158/84. She appears pale. Head is atraumatic normocephalic. Pupils are equal round reactive. Extraocular muscles are intact. TMs are pearly white with landmarks noted. Nares patent with no drainage. Posterior pharynx without erythema or exudate. Uvula is midline. There is no dysphonia or dysphasia. Trachea is midline. There is no stridor with auscultation of the neck. Heart is regular without murmur, gallop or rub. S1 and S2 are normal. Lungs are clear to auscultation with good movement of air bilaterally. Abdomen is soft nontender bowel sounds are present normal. There is no asymmetry, swelling, discoloration, leg vein distention, palpable cords or tenderness along the distribution of the deep venous system. DP and PT pulses are palpable but diminished. They are symmetric. Neuro exam is nonfocal. Affect is normal. Test Results: CBC reveals a white count of 3.5 with an H&H 10.8 and 34.4. BUN and creatinine are 28 and 1.06. The ratio is elevated. This would indicate prerenal azotemia. Emergency Department Course and Treatment: To assess patient's symptoms electro panel was obtained. Since she appears pale a CBC was obtained. Treatment Plan: Discharge to follow-up with oncologist Disposition: Discharged to home with spouse in stable condition Impression: Bilateral paresthesia secondary to chemo therapy This note was generated with [employer] dictation software. It may contain incorrect words, spelling, and punctuation that were not noted in review of the chart prior to signing ED Disposition - Plan for ED Patient: Disposition: Home or Assisted Living Chief Complaint: Numb/Ting Instructions: ED Neuropathy Peripheral Referrals: Vernon Rosa MD [Primary Care Provider] - As Needed
[2018-07-29 19:57] VITALS: BP 132/80; RESP 16; O2SAT 95
== END 2018-07-29 19:57 | disposition home or self-care (01) ==
PROVIDERS: Emergency Provider Emergency Medicine; Family Provider Family Medicine; PCP Family Medicine
DX: R20.2 Paresthesia of skin (principal); Z79.899 Other long term (current) drug therapy; C18.9 Malignant neoplasm of colon, unspecified; I25.10 Atherosclerotic heart disease of native coronary artery without angina pectoris; I25.2 Old myocardial infarction; E11.9 Type 2 diabetes mellitus without complications; I10 Essential (primary) hypertension; E78.00 Pure hypercholesterolemia, unspecified; I48.91 Unspecified atrial fibrillation; Z85.3 Personal history of malignant neoplasm of breast; Z79.82 Long term (current) use of aspirin; Z79.84 Long term (current) use of oral hypoglycemic drugs
CPT/HCPCS: 36591; 71046; 80048; 85025; 99282; A4216

== ENCOUNTER → 2018-09-02 09:44 | Outpatient (CLI) | payer MEDICARE, OTHER, SELFPAY ==
[2018-09-02 11:35] LABS: AST(SGOT) 28 U/L (15-37); Alanine Aminotransfer ALT/SGPT 30 U/L (13-56); Albumin, Serum 3.4 g/dL (3.2-5.0); Alkaline Phosphatase 152 U/L (45-117); Bilirubin, Direct 0.18 mg/dL (0.00-0.30); Cholesterol 175 mg/dL (200); Globulin 3.1 g/dL (2.2-4.2); High Density Lipoprotein 61 mg/dL; Protein, Total 6.5 g/dL (6.4-8.2); Triglycerides 150 mg/dL; Very Low Density Lipoprotein 30 mg/dL (5-40)
== END ==
PROVIDERS: Family Provider Family Medicine; PCP Family Medicine; Referring Provider Internal Medicine Cardiovascular Disease; Visit Provider Internal Medicine Cardiovascular Disease
DX: E78.5 Hyperlipidemia, unspecified (principal); E11.9 Type 2 diabetes mellitus without complications; I25.10 Atherosclerotic heart disease of native coronary artery without angina pectoris; I36.1 Nonrheumatic tricuspid (valve) insufficiency; Z95.5 Presence of coronary angioplasty implant and graft
CPT/HCPCS: 36415; 80061; 80076

== ENCOUNTER → 2018-09-11 09:42 | Outpatient (CLI) | payer MEDICARE, OTHER, SELFPAY ==
--- NOTE | 2018-09-11 09:45 | CDU_ITS ---
Reason For Study: Bilateral carotid stenosis Rt. Velocities/BP Lt. Velocities/BP Prox CCA 119/34.6 cm/sec. Prox CCA 155/18.3 cm/sec. Mid CCA 84.9/18.9 cm/sec. Mid CCA 101/25.9 cm/sec. Dist CCA 80.3/18.8 cm/sec. Dist CCA 83.3/17.3 cm/sec. Prox ICA 113/33.8 cm/sec. Prox ICA 82.1/25.2 cm/sec. Mid ICA 109/36.1 cm/sec. Mid ICA 83.8/32.2 cm/sec. Dist ICA 95.1/33.8 cm/sec. Dist ICA 78.6/28.1 cm/sec. Rt. ICA/CCA = 1.33. Lt. ICA/CCA = 0.83. Prox ECA 133/14.1 cm/sec. Prox ECA 79.2/12.9 cm/sec. Rt. Vert. 33.3/11.7 cm/sec. Lt. Vert. 49.9/17.3 cm/sec. Right Extracranial There is intimal thickening but no significant atherosclerotic plaque noted in the right common carotid artery. There is homogeneous, smooth atherosclerotic plaque noted in the right internal carotid artery. There is homogeneous, smooth atherosclerotic plaque noted in the right external carotid artery. Antegrade flow is noted in the right vertebral artery. Left Extracranial There is heterogeneous, smooth atherosclerotic plaque noted in the left common carotid artery. There is homogeneous, smooth atherosclerotic plaque noted in the left internal carotid artery. There is homogeneous, smooth atherosclerotic plaque noted in the left external carotid artery. Antegrade flow is noted in the left vertebral artery. Procedure Carotid Duplex [id number]. Exam performed in department. Interpretation Summary Mild (<50%) stenosis right extracranial internal carotid. Mild (<50%) stenosis left extracranial internal carotid. Flow within the vertebral arteries is antegrade bilaterally. Ordering Physician: CHOCO ABDALLA Referring Physician: Leena Rosa M.D. Performed By: Pastora Flood RVT and Student
--- OUTSIDE RECORDS SUMMARY | 2018-11-16 01:35 | XMS RPT_ITS ---
:1940 Author Organization OHIP Support Name Relationship Address Phone R Unavailable Unavailable Unavailable TANIAELBAALVAREZ MONTIEL Unavailable [address] + [place] [address] TANIABILLYANDREAE Unavailable UNKNOWN + [place] [address] R Unavailable Unavailable Unavailable TANIAELBATIANA ALVAREZ Unavailable [address] + [place] [address] TANIAELBAKEVIN MONTIEL Unavailable Unavailable + [place] [address] R Unavailable Unavailable Unavailable SHEELA ALVAREZ Unavailable [address] + [place] [address] ANDREA COKERE Unavailable Unavailable + [place] [address] R Unavailable Unavailable Unavailable ALVAREZ COKER Unavailable [address] + [place] [address] R Unavailable Unavailable Unavailable SHEELA ALVAREZ Unavailable [address] + [place] [address] R Unavailable Unavailable Unavailable ALVAREZ COKER Unavailable [address] + [place] [address] R Unavailable Unavailable Unavailable SHEELA ALVAREZ Unavailable [address] + [place] [address] R Unavailable Unavailable Unavailable ALVAREZ COKER Unavailable [address] + [place] [address] R Unavailable Unavailable Unavailable TANIAELBATIANA ALVAREZ Unavailable [address] + [place] [address] R Unavailable Unavailable Unavailable SHEELA ALVAREZ Unavailable [address] + [place] [address] R Unavailable Unavailable Unavailable TANIAELBATIANAALVAREZ Unavailable [address] + [place] [address] R Unavailable Unavailable Unavailable TANIAICHALVAREZ MONTIEL Unavailable [address] + [place] [address] R Unavailable Unavailable Unavailable ALVAREZ COKER Unavailable [address] + [place] [address] R Unavailable Unavailable Unavailable ALVAREZ COKER Unavailable NA + [place], [place] Care Team Providers Name Role Phone MATTEO WAGONER Attending Unavailable LIANNE, MATTEO Referring Unavailable Mccoy, Alvarez Primary Care Unavailable Niles, Roland Attending Unavailable Mccoy, Alvarez Referring Unavailable Cherri Yanez Attending Unavailable Mccoy, Alvarez Referring Unavailable Mccoy, Alvarez Primary Care Unavailable Mccoy, Alvarez Primary Care Unavailable Robin James Attending Unavailable AWGONER, MATTEO Attending Unavailable WAGONER, MATTEO Referring Unavailable Mccoy, Alvarez Primary Care Unavailable Mccoy, Alvarez Primary Care Unavailable Malik, Helen Attending Unavailable Niles, Roland Attending Unavailable Niles, Roland Referring Unavailable Mccoy, Alvarez Primary Care Unavailable Mccoy, Alvarez Primary Care Unavailable Prince Miller Attending Unavailable Niles, Roland Attending Unavailable Mccoy, Alvarez Referring Unavailable Mccoy, Alvarez Primary Care Unavailable Melisa Stallworth Attending Unavailable Catarina, Lc Attending Unavailable Catarina, Lc Referring Unavailable Mccoy, Alvarez Primary Care Unavailable Mccoy, Alvarez Primary Care Unavailable Ricky Boo Attending Unavailable Catarina, Lc Attending Unavailable Mccoy, Alvarez Primary Care Unavailable Josue Thomason Attending Unavailable CATARINA, LC Talavera Referring Unavailable MASCI, SUJIT Judd Referring Unavailable CATARINA, LC Talavera Attending Unavailable MASCI, SJUIT Judd Referring Unavailable MASCI, SUJIT Judd Referring Unavailable MASCI, SUJIT Jdud Referring Unavailable MASCI, SUJIT Judd Attending Unavailable MASCI, SUJIT Judd Referring Unavailable MASCI, SUJIT Judd Referring Unavailable MASCI, SUJIT Judd Attending Unavailable MASCI, SUJIT Dutch Referring Unavailable MASCI, SUJIT A Referring Unavailable MASCI, SUJIT A Referring Unavailable MASCI, SUJIT A Referring Unavailable MASCI, SUJIT A Referring Unavailable MASCI, SUJIT Judd Attending Unavailable MASCI, SUJIT A Referring Unavailable MASCI, SUJIT Judd Attending Unavailable MASCI, SUJIT A Referring Unavailable MASCI, SUJIT A Referring Unavailable MASCI, SUJIT A Referring Unavailable MASCI, SUJIT Judd Attending Unavailable MASCI, SUJIT A Referring Unavailable MASCI, SUJIT A Referring Unavailable MASCI, SUJIT A Referring Unavailable MASCI, SUJIT A Referring Unavailable MASCI, SUJIT A Referring Unavailable MASCI, SUJIT Judd Attending Unavailable MASCI, SUJIT A Referring Unavailable MASCI, SUJIT A Referring Unavailable MASCI, SUJIT A Referring Unavailable MASCI, SUJIT A Referring Unavailable MASCI, SUJIT A Referring Unavailable MASCI, SUJIT A Referring Unavailable MASCI, SUJIT A Referring Unavailable MASCI, SUJIT A Referring Unavailable MASCI, SUJIT A Referring Unavailable MASCI, SUJIT A Referring Unavailable MASCI, SUJIT A Referring Unavailable MASCI, SUJIT A Referring Unavailable MASCI, SUJIT A Referring Unavailable MASCI, SUJIT A Attending Unavailable MASCI, SUJIT A Referring Unavailable MASCI, SUJIT A Referring Unavailable MASCI, SUJIT A Referring Unavailable MASCI, SUJIT A Referring Unavailable MASCI, SUJIT A Attending Unavailable MASCI, SUJIT A Referring Unavailable MASCI, SUJIT A Referring Unavailable MASCI, SUJIT A Referring Unavailable MASCI, SUJIT A Referring Unavailable MASCI, SUJIT A Attending Unavailable MASCI, SUJIT A Referring Unavailable MASCI, SUJIT A Referring Unavailable MASCI, SUJIT A Referring Unavailable MASCI, SUJIT A Referring Unavailable MASCI, SUJIT A Referring Unavailable MASCI, SUJIT A Referring Unavailable MASCI, SUJIT A Attending Unavailable MASCI, SUJIT A Referring Unavailable MASCI, SUJIT A Referring Unavailable MASCI, SUJIT A Referring Unavailable MASCI, SUJIT A Referring Unavailable MASCI, SUJIT A Referring Unavailable MASCI, SUJIT A Attending Unavailable MASCI, SUJIT A Referring Unavailable MASCI, SUJIT A Referring Unavailable MASCI, SUJIT A Referring Unavailable MASCI, SUJIT A Referring Unavailable MASCI, SUJIT A Referring Unavailable MASCI, SUJIT A Attending Unavailable MASCI, SUJIT A Referring Unavailable MASCI, SUJIT A Referring Unavailable MASCI, SUJIT A Referring Unavailable MASCI, SUJIT A Referring Unavailable MASCI, SUJIT A Referring Unavailable MASCI, SUJIT A Attending Unavailable MASCI, SUJIT A Referring Unavailable MASCI, SUJIT A Referring Unavailable MASCI, SUJIT A Referring Unavailable LENORA, LAPMAN Referring Unavailable LENORA, LAPMAN Referring Unavailable MASCI, SUJIT A Referring Unavailable MASCI, SUJIT A Referring Unavailable MASCI, SUJIT A Referring Unavailable MASCI, SUJIT A Referring Unavailable CATARINA, LC T Attending Unavailable MASCI, SUJIT A Referring Unavailable MASCI, SUJIT A Referring Unavailable LENORA, LAPMAN Referring Unavailable LENORA, LAPMAN Attending Unavailable MASCI, SUJIT A Referring Unavailable MASCI, SUJIT A Referring Unavailable MASCI, SUJIT A Referring Unavailable MASCI, SUJIT A Referring Unavailable MASCI, SUJIT A Referring Unavailable MASCI, SUJIT A Attending Unavailable MASCI, SUJIT A Referring Unavailable MASCI, SUJIT A Referring Unavailable CATARINA, LC T Attending Unavailable MCCOY, ALVAREZ Lindquist Referring Unavailable MASCI, SUJIT A Referring Unavailable MASCI, SUJIT A Referring Unavailable CATARINA, LC Ilan Attending Unavailable MASCI, SUJIT A Referring Unavailable MASCI, SUJIT A Referring Unavailable MASCI, SUJIT A Attending Unavailable MASCI, SUJIT A Referring Unavailable MASCI, SUJIT A Referring Unavailable MASCI, SUJIT A Referring Unavailable MASCI, SUJIT A Referring Unavailable MASCI, SUJIT A Referring Unavailable MASCI, SUJIT A Referring Unavailable MASCI, SUJIT A Attending Unavailable MASCI, SUJIT A Referring Unavailable CATARINA, LC T Attending Unavailable MCCOY, ALVAREZ Lindquist Referring Unavailable MASCI, SUJIT A Referring Unavailable MASCI, SUJIT A Referring Unavailable MASCI, SUJIT A Referring Unavailable MASCI, SUJIT A Referring Unavailable MASCI, SUJIT A Referring Unavailable MASCI, SUJIT A Referring Unavailable MASCI, SUJIT A Referring Unavailable MASCI, SUJIT A Referring Unavailable MASCI, SUJIT A Referring Unavailable MASCI, SUJIT A Attending Unavailable MASCI, SUJIT A Referring Unavailable MASCI, SUJIT A Referring Unavailable MASCI, SUJIT A Referring Unavailable MASCI, SUJIT A Referring Unavailable LENORA, CHANEL Referring Unavailable LENORA, CHANEL Attending Unavailable MASCI, SUJIT A Referring Unavailable MASCI, SUJIT A Referring Unavailable MASCI, SUJIT A Referring Unavailable MASCI, SUJIT A Referring Unavailable MASCI, SUJIT A Referring Unavailable MASCI, SUJIT A Attending Unavailable MASCI, SUJIT A Referring Unavailable MASCI, SUJIT A Referring Unavailable CATARINA, LC Ilan Attending Unavailable MASCI, SUJIT A Referring Unavailable MASCI, SUJIT A Referring Unavailable MASCI, SUJIT A Referring Unavailable MASCI, SUJIT A Referring Unavailable MASCI, SUJIT A Attending Unavailable MASCI, SUJIT A Referring Unavailable MASCI, SUJIT A Referring Unavailable CATARINA, LC Ilan Referring Unavailable MASCI, SUJIT A Referring Unavailable MASCI, SUJIT A Referring Unavailable MASCI, SUJIT A Attending Unavailable MASCI, SUJIT A Referring Unavailable MASCI, SUJIT A Referring Unavailable MASCI, SUJIT A Referring Unavailable MASCI, SUJIT A Referring Unavailable MASCI, SUJIT A Referring Unavailable MASCI, SUJIT A Referring Unavailable MASCI, SUJIT A Referring Unavailable MASCI, SUJIT A Attending Unavailable MASCI, SUJIT A Referring Unavailable MASCI, SUJIT A Referring Unavailable MASCI, SUJIT A Referring Unavailable FREY, MONIQUE (BATCH MIXER) Referring Unavailable FREYMONIQUE PATEL (BATCH MIXER) Referring Unavailable FREY, MONIQUE (BATCH MIXER) Attending Unavailable MASCI, SUJIT A Referring Unavailable MASCI, SUJIT A Referring Unavailable CATARINA, LC T Referring Unavailable MASCI, SUJIT A Referring Unavailable MASCI, SUJIT A Referring Unavailable MASCI, SUJIT A Referring Unavailable MASCI, SUJIT A Referring Unavailable MASCI, SUJIT A Referring Unavailable MASCI, SUJIT A Referring Unavailable MASCI, SUJIT A Referring Unavailable MASCI, SUJIT A Referring Unavailable MASCI, SUJIT A Referring Unavailable MASCI, SUJIT A Referring Unavailable MASCI, SUJIT A Referring Unavailable MATTEO WAGONER Attending Unavailable Moe, Alvarez Richards Referring Unavailable Alvarez Mccoy Primary Care Unavailable PROBLEMS PROBLEMS DATE TYPE CONDITION / CODE ATTENDING STATUS SOURCE 09/12/2018 Unknown I34.0 - Nonrheumatic Niles, Roland Active [place] mitral (valve) Community insufficiency / Hospital I34.0(ICD-10) Repository 09/12/2018 Unknown Z95.1 - Presence of Niles, [place] Active [place] aortocoronary bypass Community graft / Z95.1(ICD-10) Hospital Repository 09/12/2018 Unknown I10 - Essential Niles, Roland Active [place] (primary) hypertension Community / I10(ICD-10) Hospital Repository 09/12/2018 Unknown I48.1 - Persistent Niles, Roland Active [place] atrial fibrillation / Community I48.1(ICD-10) Hospital Repository 09/12/2018 Unknown C18.9 - Malignant Niles, Roland Active [place] neoplasm of colon, Community unspecified / Hospital C18.9(ICD-10) Repository 09/12/2018 Unknown C78.7 - Secondary Niles, 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 Hospital bile duct / Repository C78.7(ICD-10) 09/12/2018 Unknown E78.00 - Pure Niles, [place] Active [place] hypercholesterolemia, Community unspecified / Hospital E78.00(ICD-10) Repository 07/09/2016 Active 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 Clinic Main / D05.12(ICD-10) [place] Repository 09/03/2015 Active Other abnormal and NA Active [place] inconclusive findings Clinic Main on diagnostic imaging [place] of breast / Repository R92.8(ICD-10) 09/03/2018 Active Malignant neoplasm of NA Active [facility] colon, unspecified / Clinic Main C18.9(ICD-10) [place] Repository 03/18/2018 Active 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 Clinic Main / C78.02(ICD-10) [place] Repository 10/25/2015 Active Secondary malignant NA Active [place] neoplasm of liver and Clinic Main intrahepatic bile duct [place] / C78.7(ICD-10) Repository 05/13/2018 Active Unknown / UNK(Unknown) NA Active [facility] Main [place] Repository 07/23/2015 Active Malignant neoplasm of NA Active [place] ascending colon / Clinic Main C18.2(ICD-10) [place] Repository 02/18/2018 Active Anemia due to NA Active [place] antineoplastic [facility] Main chemotherapy / [place] D64.81(ICD-10) Repository 02/18/2018 Active Adverse effect of NA Active [place] antineoplastic and Clinic Main immunosuppressive [place] drugs, initial Repository encounter / T45.1X5A(ICD-10) 11/23/2015 Active Portal vein thrombosis NA Active [place] / I81(ICD-10) Clinic Main [place] Repository 03/11/2018 Active Dehydration / NA Active [place] E86.0(ICD-10) Clinic Main [place] Repository 03/11/2018 Active Chronic kidney NA Active [facility] disease, stage 3 Clinic Main (moderate) / [place] N18.3(ICD-10) Repository 03/05/2018 Unknown I65.29 - Occlusion and Niles, Roland Active [place] stenosis of Community unspecified carotid Hospital artery / Repository I65.29(ICD-10) 01/16/2018 Unknown Z90.49 - Acquired Catarina, Active [place] absence of other [facility] specified parts of Hospital digestive tract / Repository Z90.49(ICD-10) 01/16/2018 Unknown N63.0 - Unspecified Catarina, Active [place] lump in unspecified [facility] breast / N63.0(ICD-10) Hospital Repository 10/18/2017 Unknown I65.23 - Occlusion and MATTEO WAGONER Active [place] stenosis of bilateral [facility] carotid arteries / Hospital I65.23(ICD-10) Repository 10/17/2017 Active Nipple discharge / NA Active [place] N64.52(ICD-10) Clinic Main [place] Repository 10/10/2017 Active Secondary malignant NA Active [place] neoplasm of Clinic Main unspecified lung / [place] C78.00(ICD-10) Repository PROCEDURES PROCEDURES No Procedure Records FoundRESULTS RESULTS CAROTID DUPLEX Observed: 09/18/2018 Status: F Source: [place] ULTRASOUND 12:08 PM [facility] REPOSITORY [facility] [address] [place] [address] Carotid Duplex Ultrasound 09/11/18 0948 MR#: [id number] Acct: [id number] Name: QUYEN COKER Rep #: [id number] : 1940 78 From: Junior Fall MD Attending Dr: MATTEO WAGONER MD Status: REG CLI Ordering Dr: Matteo Wagoner MD Date: 09/11/18 Location: [facility] Sex: F C Admitted: Reason For Study: Bilateral carotid stenosis Rt. Velocities/BP Lt. Velocities/BP Prox CCA 119/34.6 cm/sec. Prox CCA 155/18.3 cm/sec. Mid CCA 84.9/18.9 cm/sec. Mid CCA 101/25.9 cm/sec. Dist CCA 80.3/18.8 cm/sec. Dist CCA 83.3/17.3 cm/sec. Prox ICA 113/33.8 cm/sec. Prox ICA 82.1/25.2 cm/sec. Mid ICA 109/36.1 cm/sec. Mid ICA 83.8/32.2 cm/sec. Dist ICA 95.1/33.8 cm/sec. Dist ICA 78.6/28.1 cm/sec. Rt. ICA/CCA = 1.33. Lt. ICA/CCA = 0.83. Prox ECA 133/14.1 cm/sec. Prox ECA 79.2/12.9 cm/sec. Rt. Vert. 33.3/11.7 cm/sec. Lt. Vert. 49.9/17.3 cm/sec. Right Extracranial There is intimal thickening but no significant atherosclerotic plaque noted in the right common carotid artery. There is homogeneous, smooth atherosclerotic plaque noted in the right internal carotid artery. There is homogeneous, smooth atherosclerotic plaque noted in the right external carotid artery. Antegrade flow is noted in the right vertebral artery. Left Extracranial There is heterogeneous, smooth atherosclerotic plaque noted in the left common carotid artery. There is homogeneous, smooth atherosclerotic plaque noted in the left internal carotid artery. There is homogeneous, smooth atherosclerotic plaque noted in the left external carotid artery. Antegrade flow is noted in the left vertebral artery. Procedure Carotid Duplex [id number]. Exam performed in department. Interpretation Summary Mild (<50%) stenosis right extracranial internal carotid. Mild (<50%) stenosis left extracranial internal carotid. Flow within the vertebral arteries is antegrade bilaterally. Ordering Physician: MATTEO WAGONER Referring Physician: Leena Mccoy M.D. Performed By: Pastora Flood RVT and Student 09/18/18 1208 Date Junior Fall MD CC: MATTEO WAGONER MD; Alvarez Mccoy MD Date Dictated: 09/11/1848 Date Transcribed: 09/18/181207 Aerologist: Signed CNOVSP Observed: 09/17/2018 Status: COMPLETED Source: [place] 10:00 AM [facility] REPOSITORY Visit (SP) Office ([place]) QUYEN COKER ([id number]) 1940 F T Date Time Provider Department 09/17/18 10:00 AM MONIQUE FREY During your visit today, we recorded the following information about you: Temperature Pulse Blood pressure Weight 98 degrees 67/minute 139/79 99.1 kg Monique Frey APRN.BATCH MIXER 09/18/2018 1:45 PM Signed Chief Complaint Patient presents with: Established Patient HPI: Quyen Coker is a 78 year old female who presents here today for evaluation for treatment tomorrow. Per Dr. Vasquez's previous note: H/o hyperlipidemia, HTN, CAD (PR, CABG x2 2011; stent x1 2013), PVD (carotid artery stenosis s/p CEA left side 2012), sleep apnea (uses CPAP), arthritis (chronic lower back and from lower thoracic area to the neck pain). ? She developed rectal bleeding in March 2015 and underwent evaluation with EGD. Evidently that study was normal. Next underwent colonoscopy and was observed to have a tumor in the cecum. Had normal colonoscopy about 2 years prior. ? Underwent right hemicolectomy 07/28/2015. ? 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 Through muscularis propria into subserosal adipose tissue, but not extending to the serosal surface. All margins negative. No lymphovascular invasion. No perineural invasion. No tumor deposits. None of 14 nodes positive. No evidence MSI by IHC. ? Had screening mammogram 08/2015. Abnormality left breast. Dx mammo and US 09/06/2015. 6.5 x 7.9 mm nodular density with focal calcifications in fthe slightly upper lateral portion of the left breast. ? Underwent stereotactic core biopsy 09/15/2015. ? DCIS, cribriform and solid, grade 2, single cell necrosis; no invasive carcinoma. ? MRI of the breast 10/11/2015: Longitudinally oriented area of mild enhancement in the central left breast thought to be due to postbiopsy hemorrhage/inflammation. Tumor along this entire length is thought less likely but cannot be excluded. ? MRI of the abdomen and pelvis 10/13/2015: Liver: There is a large, heterogeneously enhancing mass within the entire lateral segment of the left hepatic lobe and extending into the medial segment as well. This mass measures approximately 8.2 x 5.8 x 6.3 cm. This is most consistent with neoplasm, perhaps metastatic given the patient's history of colonic carcinoma. No additional hepatic lesions are seen. There is patchy hepatic fatty change throughout the right hepatic lobe. ? Partial, nonocclusive thrombus within the superior mesenteric vein just cephalad to its 1st branch. ? Liver biopsy--consistent with colorectal primary. ? Patient received the fourth cycle chemotherapy on 12/22/2015. She developed profuse diarrhea and presented to the emergency department for dehydration and shortness of breath. She was found to be an RVR atrial fibrillation with significant hypomagnesemia. She was admitted and started on IV hydration and magnesium replacement as well as medical management of atrial fibrillation. The diarrhea however continued for several more days during which she was given supportive care. Following that she developed an episode of ileus which extend her hospital stay. She was eventually discharged to rehabilitation. This morning she underwent an ultrasound of both lower extremities. She was found to have an acute DVT in the right common femoral vein. Treated with apixaban. ? Underwent left-sided lumpectomy for DCIS. ? Specimen - partial breast Procedure - excision with wire-guided localization Lymph node sampling ? no lymph nodes present Specimen integrity - single intact specimen Specimen size ? 15 x 9 x 4 cm Specimen laterality ? left Tumor site ? not specified Size (extent) of DCIS ? 0.3 cm in greatest dimension. See comment. 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 Architectural pattern - cribriform Nuclear grade - grade 2 (intermediate) Necrosis ? not identified Margins ? margin uninvolved by ductal carcinoma in situ. The tumor is 2 cm away from the closest anterior and posterior margins Treatment effect - no known presurgical therapy. Lymph nodes ? not submitted Distant metastasis ? not replicable Additional Pathologic Findings ? fibrocystic changes. - Focal changes consistent with previous biopsy site. ? Previous therapy: 1) FOLFOX x1; FOLFOX with Vectibix x3. 2) Underwent left hepatectomy 04/28/2016. Final pathology reviewed. Positive margin was cauterized during surgery. 3) Xeloda after liver directed therapy. Started cycle #3 11/27/2016 through 02/2017. 4) Infusional 5-fluorouracil with oxaliplatin on diagnosis lung metastasis. PD. ? Current therapy: 1) FOLFIRI. ?Vectibix was added to her treatment on 08/07/2018 for progression of liver metastasis by CT imaging. ? The last one was much better. Appetite:ok Energy level:fair and lower Denies fevers. Mouth:I get them the first week usually-they weren't as bad this last time. Denies sores currently. Resp:+ cough for over a year, gallego Cardiac:denies chest pain/occ. palpitations +a. fib GI:denies abd pain, + mild nausea It was so much better with this last treatment, denies vomiting, moving bowels regularly :denies dysuria/hematuria Extrem:denies pain Neuro:my feet are numb all of the time-the hands are more dry and cracking. Skin:denies rashes/lesions Heme:denies bleeding The ROS is otherwise negative. Past medical history, appointments, medications, allergies reviewed. No changes. EXAM: BP 139/79 Pulse 67 Temp 36.7 ?C (98 ?F) Wt 99.1 kg (218 lb 8 oz) BMI 39.96 kg/m? APPEARANCE Well appearing, alert, in no acute distress, well- hydrated, well nourished. MOUTH no mucositis HEART irreg LUNG clear to auscultation LYMPH NODES No cervical lymphadenopathy, No supraclavicular lymphadenopathy and No axillary lymphadenopathy. ABDOMEN bowel sounds normoactive, no bruits, soft, non-tender, non-distended, without organomegaly or palpable masses EXTREMITIES No edema NEURO Awake, alert and oriented x 3, Normal gait and No involuntary motions. SKIN Skin color, texture, turgor normal, no suspicious rashes or lesions LABS: Component Latest Ref Rng AND Units 08/06/2018 09/03/2018 09/17/2018 WBC, [place] 3.70 - 11.00 k/uL 3.33 (L) 4.68 3.38 (L) RBC, [place] 3.90 - 5.20 m/uL 3.39 (L) 3.51 (L) 3.62 (L) Hemoglobin, [place] 11.5 - 15.5 g/dL 10.6 (L) 10.9 (L) 11.1 (L) Hematocrit, [place] 36.0 - 46.0 % 34.1 (L) 35.0 (L) 35.7 (L) MCV, [place] 80.0 - 100.0 fL 100.6 (H) 99.7 98.6 MCH, [place] 26.0 - 34.0 pg 31.3 31.1 30.7 MCHC, [place] 30.5 - 36.0 g/dL 31.1 31.1 31.1 RDW, [place] 11.5 - 15.0 % 14.9 15.1 (H) 15.1 (H) Platelet Cnt, [place] 150 - 400 k/uL 176 205 166 MPV, [place] 9.0 - 12.7 fL 9.7 10.2 9.7 Absol Gran Count 1.45 - 7.50 k/uL 1.90 2.44 2.10 CMP/CEA: Pending ASSESSMENT/PLAN: 1. Malignant neoplasm of ascending colon (HCC) - ICD9: 153.6, ICD10: C18.2 (primary diagnosis) 2. Liver metastasis (HCC) - ICD9: 197.7, ICD10: C78.7 3. 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 Vasquez's previous note: -sam wild type. -Patient had completed several months of capecitabine following resection for an isolated liver metastasis. She tolerated capecitabine only marginally and was on lower doses for the last couple cycles. She had marked difficulty with diarrhea, dehydration and several hospitalizations/ER visits for toxicity. However, lung nodule had been stable. -PD with new liver and progressive lung metastasis 08/2017. 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 Also documented 50% decline in hearing presumably from oxaliplatin also. -Tolerates FOLFIRI better with the addition of hydration on day 1 and 3. Did not tolerate panitumumab ?1 dose of 1.5 mg/kg. -PET scan indicated no disease in the liver. Presumably lung nodules too small to light up on PET scan anyway. It is not clear that she had her blood sugar checked prior to the PET scan I'm not sure if the study was false negative. Plan: -Continue FOLFIRI for now. -Will investigate if blood sugar was obtained prior to the PET scan. -Continue hydration on day 1 and day 3. -Emend day 1. Continue the addition of dexamethasone 4 mg twice a day on days 2 and 3. ? 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 Plan: -Continue Xarelto. - Pt. tolerated last cycle well. - Reviewed CBC with pt. - CMP/CEA pending. - Continue current medications. - Blood sugar was not done prior to PET scan. - Plan 2-[address]. - Proceed as scheduled tomorrow for FOLFIRI. - Follow up as scheduled. - Pt. aware to call office with any questions/concerns. The patient indicates understanding of these issues and agrees with the plan. Discussed case with Dr. Vasquez who agrees with treatment plan. Monique Frey APRN.BATCH MIXER Elisa Pritchettchristina Weber LPN, UX MANAGER 09/17/2018 10:02 AM Signed Est pt, discuss recent lab results. TX tomorrow Elisa Weber LPN Referring Provider: SUJIT VASQUEZ [[id number]] Allergies As of Date: 09/17/2018 Noted Allergy Reaction CORGARD (NADOLOL) 07/21/2015 12 - Shortness of Breath PENN 07/21/2015 12 - Shortness of Breath MORPHINE 07/21/2015 12 - Shortness of Breath Comments: Pt says she can tolerate oxycodone. PENICILLINS 07/21/2015 12 - Shortness of Breath PERFUMES 12/07/2017 12 - Shortness of Breath PRAVACHOL (PRAVASTATIN) 07/21/2015 12 - Shortness of Breath SULFITE 07/21/2015 12 - Shortness of Breath Comments: Sulfites in food. Verified by refrigerator tester. ZOCOR (SIMVASTATIN) 07/21/2015 12 - Shortness of Breath Comments: Pt reports allergy to brand Zocor, tolerates generic. 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) [C78.02] Follow-up and Disposition History Recorded Prescriptions as of 09/17/2018 Sig: POTASSIUM CHLORIDE ER 20 MEQ * Take 1 tablet by mouth once d* DEXAMETHASONE 4 MG TABLET Take 1 tablet by mouth twice * ONDANSETRON HCL 8 MG TABLET Take 1 tablet by mouth every * FUROSEMIDE 40 MG TABLET Take 40 mg by mouth once wilman* GLIMEPIRIDE 2 MG TABLET Take 2 mg by mouth daily with* OMEPRAZOLE 40 MG CAPSULE,MELODY* Take 1 capsule by mouth once * HYOSCYAMINE 0.125 MG DISINTEG* Dissolve 2 tablets under the * RIVAROXABAN 15 MG TABLET Take 1 tablet by mouth daily * Patient taking differently: Take by mouth daily with dinn* LIDOCAINE-PRILOCAINE 2.5 %-2.* Apply 1 application to affect* SODIUM CHLORIDE 0.9% FLUSH Access implanted vascular acc* HEPARIN, PORCINE (PF) 100 UNI* Access implanted vascular acc* LOPERAMIDE 2 MG TABLET Take 2 mg by mouth as needed. MONTELUKAST 10 MG TABLET Take 1 tablet by mouth daily * MAGNESIUM OXIDE 400 MG (241.3* Take 400 mg by mouth twice da* ACETAMINOPHEN 500 MG TABLET Take 1,000 mg by mouth as nee* ISOSORBIDE MONONITRATE ER 60 * Take 60 mg by mouth once wilman* ASPIRIN 81 MG TABLET,DELAYED * Take 81 mg by mouth once wilman* METOPROLOL TARTRATE 50 MG TAB* Take 50 mg by mouth twice wyatt* LISINOPRIL 10 MG TABLET Take 10 mg by mouth once wilman* MOMETASONE 220 MCG (60 DOSES)* Inhale 1 Puff as instructed. CHOLECALCIFEROL (VITAMIN D3) * Take 1 tablet by mouth once d* SIMVASTATIN 40 MG TABLET Take 20 mg by mouth daily at * NITROGLYCERIN 0.3 MG SUBLINGU* Dissolve 0.3 mg under the ton* ALBUTEROL SULFATE HFA 90 MCG/* Inhale 2 Puffs as instructed * EPINEPHRINE 0.15 MG/0.15 ML I* by INJECTION(UNSPECIFIED PARE* LORATADINE 10 MG TABLET Take 10 mg by mouth as needed. FDIIEBNSSVOMQMS-MPANEMT-TORDL* Take 10 mL by mouth every 4 h* Patient not taking: Reported on 09/03/2018 DIPHENHYDRAMINE 25 MG TABLET Take 50 mg by mouth as needed. 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] INVALID FOR* Abnormal magnetic resonance imaging of liver [R*INVALID FOR* Liver metastasis (HCC) [C78.7] INVALID FOR* Diabetes (HCC) [E11.9] INVALID FOR* Hearing loss [H91.90] INVALID FOR* Hypertension [I10] INVALID FOR* Hyperlipidemia [E78.5] INVALID FOR* Carotid artery disease (HCC) [I77.9] INVALID FOR* Coronary artery disease [I25.10] INVALID FOR* Asthma [J45.909] INVALID FOR* Sleep apnea [G47.30] INVALID FOR* Arthritis [M19.90] INVALID FOR* Fibromyalgia [M79.7] INVALID FOR* Atrial arrhythmia [I49.8] INVALID FOR* H/O degenerative disc disease [Z87.39] INVALID FOR* Spondylolysis [M43.00] INVALID FOR* Radiculopathy [M54.10] INVALID FOR* Eczema [L30.9] INVALID FOR* Anemia [D64.9] INVALID FOR* 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*INVALID FOR* Colon cancer (HCC) [C18.9] Hypotension due to drugs [I95.2] INVALID FOR* Orthostasis [I95.1] INVALID FOR* Nausea [R11.0] INVALID FOR* Anemia due to antineoplastic chemotherapy [D64.*INVALID FOR* CKD (chronic kidney disease) stage 3, GFR 30-59*INVALID FOR* Dehydration [E86.0] INVALID FOR* Malignant neoplasm metastatic to left lung (HCC*INVALID FOR* Visit Notes: >> JUAN Traylor Lpn Sep 17, 2018 9:52 AM Status: Signed Est pt, discuss recent lab results. TX tomorrow Elisa Weber LPN Encounter Status:Closed by MONIQUE FREY CNP on 09/18/18 PROGRESS Observed: 09/17/2018 Status: COMPLETED Source: [place] 9:48 AM [facility] REPOSITORY O ID: [id number] Author: Monique Frey Service: (none) Author Type: Nurse Practitioner Type: Progress Notes Filed: 09/18/2018 1:45 PM Note Text: Chief Complaint Patient presents with: Established Patient HPI: Quyen Coker is a 78 year old female who presents here today for evaluation for treatment tomorrow. Per Dr. Vasquez's previous note: H/o hyperlipidemia, HTN, CAD (PR, CABG x2 2011; stent x1 2013), PVD (carotid artery stenosis s/p CEA left side 2012), sleep apnea (uses CPAP), arthritis (chronic lower back and from lower thoracic area to the neck pain). ? She developed rectal bleeding in March 2015 and underwent evaluation with EGD. Evidently that study was normal. Next underwent colonoscopy and was observed to have a tumor in the cecum. Had normal colonoscopy about 2 years prior. ? Underwent right hemicolectomy 07/28/2015. ? 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 Through muscularis propria into subserosal adipose tissue, but not extending to the serosal surface. All margins negative. No lymphovascular invasion. No perineural invasion. No tumor deposits. None of 14 nodes positive. No evidence MSI by IHC. ? Had screening mammogram 08/2015. Abnormality left breast. Dx mammo and US 09/06/2015. 6.5 x 7.9 mm nodular density with focal calcifications in fthe slightly upper lateral portion of the left breast. ? Underwent stereotactic core biopsy 09/15/2015. ? DCIS, cribriform and solid, grade 2, single cell necrosis; no invasive carcinoma. ? MRI of the breast 10/11/2015: Longitudinally oriented area of mild enhancement in the central left breast thought to be due to postbiopsy hemorrhage/inflammation. Tumor along this entire length is thought less likely but cannot be excluded. ? MRI of the abdomen and pelvis 10/13/2015: Liver: There is a large, heterogeneously enhancing mass within the entire lateral segment of the left hepatic lobe and extending into the medial segment as well. This mass measures approximately 8.2 x 5.8 x 6.3 cm. This is most consistent with neoplasm, perhaps metastatic given the patient's history of colonic carcinoma. No additional hepatic lesions are seen. There is patchy hepatic fatty change throughout the right hepatic lobe. ? Partial, nonocclusive thrombus within the superior mesenteric vein just cephalad to its 1st branch. ? Liver biopsy--consistent with colorectal primary. ? Patient received the fourth cycle chemotherapy on 12/22/2015. She developed profuse diarrhea and presented to the emergency department for dehydration and shortness of breath. She was found to be an RVR atrial fibrillation with significant hypomagnesemia. She was admitted and started on IV hydration and magnesium replacement as well as medical management of atrial fibrillation. The diarrhea however continued for several more days during which she was given supportive care. Following that she developed an episode of ileus which extend her hospital stay. She was eventually discharged to rehabilitation. This morning she underwent an ultrasound of both lower extremities. She was found to have an acute DVT in the right common femoral vein. Treated with apixaban. ? Underwent left-sided lumpectomy for DCIS. ? Specimen - partial breast Procedure - excision with wire-guided localization Lymph node sampling ? no lymph nodes present Specimen integrity - single intact specimen Specimen size ? 15 x 9 x 4 cm Specimen laterality ? left Tumor site ? not specified Size (extent) of DCIS ? 0.3 cm in greatest dimension. See comment. 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 Architectural pattern - cribriform Nuclear grade - grade 2 (intermediate) Necrosis ? not identified Margins ? margin uninvolved by ductal carcinoma in situ. The tumor is 2 cm away from the closest anterior and posterior margins Treatment effect - no known presurgical therapy. Lymph nodes ? not submitted Distant metastasis ? not replicable Additional Pathologic Findings ? fibrocystic changes. - Focal changes consistent with previous biopsy site. ? Previous therapy: 1) FOLFOX x1; FOLFOX with Vectibix x3. 2) Underwent left hepatectomy 04/28/2016. Final pathology reviewed. Positive margin was cauterized during surgery. 3) Xeloda after liver directed therapy. Started cycle #3 11/27/2016 through 02/2017. 4) Infusional 5-fluorouracil with oxaliplatin on diagnosis lung metastasis. PD. ? Current therapy: 1) FOLFIRI. ?Vectibix was added to her treatment on 08/07/2018 for progression of liver metastasis by CT imaging. ? The last one was much better. Appetite:ok Energy level:fair and lower Denies fevers. Mouth:I get them the first week usually-they weren't as bad this last time. Denies sores currently. Resp:+ cough for over a year, gallego Cardiac:denies chest pain/occ. palpitations +a. fib GI:denies abd pain, + mild nausea It was so much better with this last treatment, denies vomiting, moving bowels regularly :denies dysuria/hematuria Extrem:denies pain Neuro:my feet are numb all of the time-the hands are more dry and cracking. Skin:denies rashes/lesions Heme:denies bleeding The ROS is otherwise negative. Past medical history, appointments, medications, allergies reviewed. No changes. EXAM: BP 139/79 Pulse 67 Temp 36.7 ?C (98 ?F) Wt 99.1 kg (218 lb 8 oz) BMI 39.96 kg/m? APPEARANCE Well appearing, alert, in no acute distress, well-hydrated, well nourished. MOUTH no mucositis HEART irreg LUNG clear to auscultation LYMPH NODES No cervical lymphadenopathy, No supraclavicular lymphadenopathy and No axillary lymphadenopathy. ABDOMEN bowel sounds normoactive, no bruits, soft, non-tender, non-distended, without organomegaly or palpable masses EXTREMITIES No edema NEURO Awake, alert and oriented x 3, Normal gait and No involuntary motions. SKIN Skin color, texture, turgor normal, no suspicious rashes or lesions LABS: Component Latest Ref Rng AND Units 08/06/2018 09/03/2018 09/17/2018 WBC, [place] 3.70 - 11.00 k/uL 3.33 (L) 4.68 3.38 (L) RBC, Kellen 3.90 - 5.20 m/uL 3.39 (L) 3.51 (L) 3.62 (L) Hemoglobin, [place] 11.5 - 15.5 g/dL 10.6 (L) 10.9 (L) 11.1 (L) Hematocrit, Kellen 36.0 - 46.0 % 34.1 (L) 35.0 (L) 35.7 (L) MCV, [place] 80.0 - 100.0 fL 100.6 (H) 99.7 98.6 MCH, [place] 26.0 - 34.0 pg 31.3 31.1 30.7 MCHC, [place] 30.5 - 36.0 g/dL 31.1 31.1 31.1 RDW, [place]ellen 11.5 - 15.0 % 14.9 15.1 (H) 15.1 (H) Platelet Cnt, [place] 150 - 400 k/uL 176 205 166 MPV, [place] 9.0 - 12.7 fL 9.7 10.2 9.7 Absol Gran Count 1.45 - 7.50 k/uL 1.90 2.44 2.10 CMP/CEA: Pending ASSESSMENT/PLAN: 1. Malignant neoplasm of ascending colon (HCC) - ICD9: 153.6, ICD10: C18.2 (primary diagnosis) 2. Liver metastasis (HCC) - ICD9: 197.7, ICD10: C78.7 3. 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 Vasquez's previous note: -sam wild type. -Patient had completed several months of capecitabine following resection for an isolated liver metastasis. She tolerated capecitabine only marginally and was on lower doses for the last couple cycles. She had marked difficulty with diarrhea, dehydration and several hospitalizations/ER visits for toxicity. However, lung nodule had been stable. -PD with new liver and progressive lung metastasis 08/2017. 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 Also documented 50% decline in hearing presumably from oxaliplatin also. -Tolerates FOLFIRI better with the addition of hydration on day 1 and 3. Did not tolerate panitumumab ?1 dose of 1.5 mg/kg. -PET scan indicated no disease in the liver. Presumably lung nodules too small to light up on PET scan anyway. It is not clear that she had her blood sugar checked prior to the PET scan I'm not sure if the study was false negative. Plan: -Continue FOLFIRI for now. -Will investigate if blood sugar was obtained prior to the PET scan. -Continue hydration on day 1 and day 3. -Emend day 1. Continue the addition of dexamethasone 4 mg twice a day on days 2 and 3. ? 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 Plan: -Continue Xarelto. - Pt. tolerated last cycle well. - Reviewed CBC with pt. - CMP/CEA pending. - Continue current medications. - Blood sugar was not done prior to PET scan. - Plan 2-[address]. - Proceed as scheduled tomorrow for FOLFIRI. - Follow up as scheduled. - Pt. aware to call office with any questions/concerns. The patient indicates understanding of these issues and agrees with the plan. Discussed case with Dr. Vasquez who agrees with treatment plan. Monique Frey APRN.BATCH MIXER COMP METABOLIC PANEL Collected: 09/17/2018 Status: F Source: [place] 9:47 AM [facility] REPOSITORY TYPE CODE TESTS RESULT OUT OF REFERENCE UNITS RANGE LAB TP 6.3-8.0 g/dL Protein, Low Total 6.1 LAB ALB 3.9-4.9 g/dL Albumin 3.9 LAB CA 8.5-10.2 mg/dL Calcium, Total 9.8 LAB TBIL 0.2-1.3 mg/dL Bilirubin, Total 0.3 LAB ALKP 34-123 U/L Alkaline High Phosphatase 148 LAB AST 13-35 U/L AST 21 LAB GLU 74-99 mg/dL Glucose High 196 LAB BUN 7-21 mg/dL BUN 19 LAB CRET 0.58-0.96 mg/dL Creatinine High 1.00 LAB NA 136-144 mmol/L Sodium 139 LAB K 3.7-5.1 mmol/L Potassium 4.2 LAB CL 97-105 mmol/L Chloride 103 LAB CO2 22-30 mmol/L CO2 26 LAB AGAP mmol/L Anion Gap 10 LAB ALT 7-38 U/L ALT 20 LAB GFRAA eGFR- >60 Amer. LAB GFRNAA . eGFR-All Other Races 54 Result Comment: eGFR (Estimated GFR) Units of measure: mL/min/1.73 meters squared eGFR is derived from the reexpressed MDRD Study equation using the following parameters: serum creatinine, age, gender and race. The creatinine assay has been calibrated to be traceable to IDMS. An eGFR <60 mL/min/1.73m2 for >3 months is consistent with chronic kidney disease. Refer to KDOQI guidelines for clinical interpretation. In patients with unstable renal function, e.g. those with acute kidney injury, the eGFR may not accurately reflect actual GFR. CEA Collected: 09/17/2018 Status: F Source: [place] 9:47 AM [facility] REPOSITORY TYPE CODE TESTS RESULT OUT OF RANGE REFERENCE UNITS LAB CEA 0.0-2.9 ng/mL High CEA 7.1 Result Comment: Test analyzed by the Nicholas DxI method. Performed By: #### CEA #### [facility] [address] [place], [place] [address] KELLEN ABS GR + CBC Collected: 09/17/2018 Status: F Source: [place] 9:46 AM [facility] REPOSITORY TYPE CODE TESTS RESULT OUT OF REFERENCE UNITS RANGE LAB WWBC 3.70-11.00 k/uL Low [place] WBC 3.38 LAB WRBC 3.90-5.20 m/uL Low [place] RBC 3.62 LAB WHGB 11.5-15.5 g/dL Low [place] Hemoglobin 11.1 LAB WHCT 36.0-46.0 % Low Kellen Hematocrit 35.7 LAB WMCV 80.0-100.0 fL [place] MCV 98.6 LAB WMCH 26.0-34.0 pg [place] MCH 30.7 LAB WMCHC 30.5-36.0 g/dL [place] MCHC 31.1 LAB WRDW 11.5-15.0 % [place] High RDW 15.1 LAB WPLT 150-400 k/uL Kellen Platelet Cnt 166 LAB WMPV 9.0-12.7 fL [place] MPV 9.7 Result Comment: Test performed at: [facility], [address] [place] [address]. LAB ABGRAN 1.45-7.50 k/uL Absol Gran 2.10 Count CARDIOLOGY VISIT Observed: 09/12/2018 Status: F Source: HIMROD REPORT 1:31 PM [facility] REPOSITORY [facility] [address] [place] [address] OFFICE VISIT Date of Service: 09/12/18 MR#: [id number] Acct: [id number] Name: QUYEN COKER Rep #: [id number] : 1940 Provider: Roland Cage MD Age/Sex: 78/F Location: [facility] Status: Signed HPI HPI Details: QUYEN COKER, is a 78 F who presents to the office today for a follow-up visit. She is a lady with a history of coronary artery disease status post carotid bypass surgery 2 in January 2012. She had a left internal mammary artery to the first diagonal vessel and a saphenous vein graft to the right coronary artery. She also in 2013 had a drug-eluting stent placed to the circumflex artery with a plain old balloon angioplasty to the left anterior descending artery. In addition she has a history of chronic atrial fibrillation and a left carotid endarterectomy in 2012. As you know she unfortunately developed colon carcinoma even after having a colonoscopy with liver metastases. She had to have a liver resection as well. She is currently doing well on maintenance chemotherapy. She denies any chest pain on a routine basis but she does have some discomfort once or twice a month. She does not take any nitroglycerin for this because it does not last that long she has not had any dizziness or diaphoresis no near syncope or syncope she continues to follow-up with the oncologist. Her physical exam today demonstrates clear lung pedersen irregular rate and rhythm and no pedal edema. Intake Vital Signs09/12/18 Height 5 ft 3 in 09/12/18 Weight: 217 lb 09/12/18 Body Mass Index (BMI) 38.4 09/12/18 Blood Pressure 118/68 09/12/18 Blood Pressure Location Lt brachial Intake Visit Reasons: 6 M FU Authors Motivational Required: No Accompanied by: none Is patient in pain?: No Allergies penn Allergy (Verified 09/12/18 13:09) Shortness of breath nadolol [From Corgard] Allergy (Verified 09/12/18 13:09) Hives Penicillins Allergy (Verified 09/12/18 13:09) Hives pitavastatin [From Livalo] Allergy (Verified 09/12/18 13:09) myalgia pravastatin sodium [From Pravachol] Allergy (Verified 09/12/18 13:09) Hives sulfite Allergy (Verified 09/12/18 13:09) Hives atorvastatin calcium [From Lipitor] Adverse Reaction (Verified 09/12/18 13:09) Pain in joints morphine Adverse Reaction (Verified 09/12/18 13:09) chest pain Medications Aspirin 81 mg PO DAILY 01/03/17 [History Confirmed 09/12/18] Cholecalciferol (Vitamin D3) [Vitamin D3] 4,000 unit PO DAILY 01/03/17 [History Confirmed 09/12/18] Mometasone Furoate [Asmanex 220 mcg Twisthaler] 2 puff INHALATION DAILY 01/03/17 [History Confirmed 09/12/18] albuterol sulfate HFA 90 mcg/actuation aerosol inhaler 2 puff INHALATION Q4H PRN PRN 16 Days #18 08/17/17 [History Confirmed 09/12/18] diphenhydramine 25 mg capsule 50 mg PO PRN PRN 0 Days 08/17/17 [History Confirmed 09/12/18] epinephrine 0.3 mg/0.3 mL injection, auto-injector 0.3 ml SC PRN PRN 1 Days #2 ea 08/17/17 [History Confirmed 09/12/18] hydrocortisone 2.5 % topical cream 1 applic TOPICAL TID PRN PRN 10 Days #30 08/17/17 [History Confirmed 09/12/18] loratadine 10 mg tablet 10 mg PO DAILY PRN PRN 0 Days 08/17/17 [History Confirmed 09/12/18] montelukast 10 mg tablet 10 mg PO QDAY PRN tab 08/17/17 [History Confirmed 09/12/18] magnesium oxide 400 mg (241.3 mg magnesium) tablet 400 mg PO BID #180 tab 08/21/17 [Rx Confirmed 09/12/18] nitroglycerin 0.4 mg sublingual tablet 0.4 mg SUBLINGUAL Q5M PRN #25 tab 08/21/17 [Rx Confirmed 09/12/18] omeprazole 20 mg tablet,delayed release 20 mg PO DAILY #90 tab 09/25/17 [Rx Confirmed 09/12/18] Potassium Chloride [Klor-Con M20] 20 meq PO DAILY 10/01/17 [History Confirmed 09/12/18] metoprolol tartrate 25 mg tablet 25 mg PO BID #180 tab 01/14/18 [Rx Confirmed 09/12/18] furosemide 40 mg tablet 40 mg PO QDAY #90 tab 03/07/18 [Rx Confirmed 09/12/18] rivaroxaban 15 mg tablet 15 mg PO QDAY #90 tab 03/07/18 [Rx Confirmed 09/12/18] Glimepiride [Amaryl] 1 tab PO DAILY 07/29/18 [History Confirmed 09/12/18] isosorbide mononitrate ER 60 mg tablet,extended release 24 hr 60 mg PO DAILY #90 tab 08/28/18 [Rx Confirmed 09/12/18] lisinopril 10 mg tablet 10 mg PO DAILY #90 tab 08/28/18 [Rx Confirmed 09/12/18] simvastatin 20 mg tablet 20 mg PO QHS #90 tab 08/28/18 [Rx Confirmed 09/12/18] [facility] Medical History Nonrheumatic mitral (valve) insufficiency (Chronic) Non-rheumatic tricuspid valve insufficiency (Chronic) Atherosclerosis of coronary artery without angina pectoris (Chronic) HTN (hypertension) (Chronic) Old myocardial infarction (Chronic) Persistent atrial fibrillation (Chronic) Hypomagnesemia (Chronic) Anemia of chronic disorder (Chronic) Carotid artery stenosis (Chronic) Hyperlipidemia (Chronic) Diabetes mellitus, type II (Chronic) Obesity (BMI 30-39.9) (Chronic) Adenocarcinoma of colon (Chronic) Breast cancer (Chronic) Colon cancer metastasized to liver (Chronic) History of hysterectomy (Resolved) Palpitations (Inactive) Surgical History History of coronary artery stent placement (Chronic 12/04/13) H/O coronary artery bypass surgery (Chronic 02/13/12) History of colectomy (Chronic) History of left-sided carotid endarterectomy (Chronic 02/07/13) Hx of resection of liver (Chronic) History of appendectomy (Resolved) Family History Father CAD (coronary artery disease) Myocardial infarction, Onset Age: 45 Brother CAD (coronary artery disease) Myocardial infarction, Onset Age: 65 Mother , age 85 Atrial fibrillation CHF (congestive heart failure) Pacemaker Sister Atrial fibrillation, Onset Age: 55 Social History Smoking Status: Never smoker alcohol intake: never substance use type: does not use caffeine: Yes Type: carbonated beverages what type of physical activity do you participate in: none seatbelt use: always do you feel safe at home: Yes ROS Const Const: Negative for fatigue, weakness, night sweats, excessive sweating, frequent falls, headache(s) or daytime sleepiness Eyes Eyes: Negative for loss of peripheral vision, transient loss of vision, blind spots, double vision or blurry vision ENT ENT: Negative for headache(s), dizziness, balance problems, Nosebleed/epistaxis, tongue swelling or lip swelling Cardio Chest Pain: No Palpitations: No Edema: Bilateral Muscle aches with walking: None Resp Respiratory: Positive for SOB with activity; negative for SOB at rest, SOB orthopnea\SOB lying down, Cough or paroxysmal nocturnal dyspnea GI GI: Negative nausea, vomiting, heartburn, black,tarry stools or bright, red blood in stools : Negative for hematuria Musc Musc: Negative for balance problems, muscle aches/ myalgia, muscle weakness or joint pain Skin Skin: Negative non-healing lesions, unusual bruising or rash Neuro Neuro: Negative for weakness, frequent falls, headache(s), double vision, dizziness, lightheadedness, orthostatic symptoms, blurry vision or lack of coordination Jose M Hematologic/Lymphatic: Negative for easy bruising or easy bleeding Endo Endo: Negative for fatigue, excessive sweating, cold intolerance, heat intolerance, increased thirst/drinking or hair loss Psych Psych: Negative for anxiety or depression Allergy Allergy/Immunology: Negative for throat swelling, Negative for tongue swelling, Negative for hives, Negative for rash, Negative for lip swelling Cardiology Exam Const Appearance: cooperative, healthy appearing, well developed, well groomed and no acute distress Nutritional Appearance: well nourished and average body habitus Orientation: alert, awake and oriented x3 Head Head: normal to inspection, normocephalic and atraumatic Ears: hearing grossly normal bilaterally and external ears normal Nose: external nose normal, nasal mucous membranes and turbinates normal, nares normal, septum normal, no nasal discharge Face and Sinus: face symmetric Mouth: oral mucosae normal, tongue normal, oropharynx normal and moist mucous membranes Teeth and gingiva: dentition normal Throat: posterior oropharynx normal, tonsils normal and uvula midline Eyes General: appearance normal, both eyes and all related structures Eyelids: eyelids normal Conjunctivae: conjunctivae normal Pupils: PERRL, normal by confrontation and accommodation normal EOM: EOM intact bilaterally Neck Neck: normal visual inspection, trachea midline and no JVD JVD: +5 Carotids: normal carotid upstroke and bounding pulses Chest Chest inspection: normal inspection of the chest, symmetric chest movement and normal respiratory effort Auscultation: Bilateral: Clear to Auscultation Cardio Palpation: normal PMI Rate: regular rate Rhythm: regular rhythm Heart sounds: S1 normal, S2 normal and normal, physiologic split S2; negative rub, gallop or murmur GI GI: normal to inspection, soft, no hepatosplenomegaly and bowel sounds present Neuro General: alert, awake, oriented x3, no focal sensory deficit, gait normal and moves all extremities Skin Skin: no rashes or lesions noted Extremities Pulses: Normal: Right Femoral Pulse, Left Femoral Pulse, Right Dorsalis Pedis Pulse, Left Dorsalis Pedis Pulse, Right Posterior Tibial Pulse, Left Posterior Tibial Pulse, Right Radial Pulse, Left Radial Pulse Lower Extremity Edema: None: Bilateral Musculoskel Musculoskeletal: No joint tenderness Psych Psychological: normal affect Assessment AND Plan 1. H/O coronary artery bypass surgery Z95.1 CABG x 2 [place] to D2, SVG to RCA 02/13/2012 Plan She does have a history of coronary artery disease status post coronary bypass surgery. She has not had any anginal spells. My recommendation is for her to continue on the same medications without any testing at this particular time. 2. Essential hypertension I10 Plan She does have a history of hypertension which is well controlled on the current medical therapy. Once again she would continue the same without as making any changes she will remain on the lisinopril and the beta-bryce. 3. Persistent atrial fibrillation I48.1 Plan She does have chronic persistent atrial fibrillation with a controlled ventricular response rate. She remains on rivaroxaban as well as the beta-bryce and I would recommend that we repeat her echocardiogram especially as she is undergoing maintenance chemotherapy. 4. Colon cancer metastasized to liver C18.9; C78.7 Plan She does have a history of colon carcinoma metastasized to the liver she will continue to follow-up with the oncologist as well. She is on a statin and her liver function tests would be evaluated. Her recent liver function tests were noted to be normal. Except for an elevated alkaline phosphatase 5. Pure hypercholesterolemia E78.00 Plan She does have a history of hyperlipidemia with a total cholesterol 175, LDL of 84, and HDL of 61. No other changes will be made. 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 (legal collector) Coding Level of Care Code Off vis,est,level 4 Diagnoses H/O coronary artery bypass surgery Z95.1 Essential hypertension I10 Hypertension type: essential hypertension Persistent atrial fibrillation I48.1 Colon cancer metastasized to liver C18.9; C78.7 Pure hypercholesterolemia E78.00 Hyperlipidemia type: pure hypercholesterolemia Coding Level of Care Code Off vis,est,level 4 Diagnoses H/O coronary artery bypass surgery Z95.1 Essential hypertension I10 Hypertension type: essential hypertension Persistent atrial fibrillation I48.1 Colon cancer metastasized to liver C18.9; C78.7 Pure hypercholesterolemia E78.00 Hyperlipidemia type: pure hypercholesterolemia Supplemental Info Supplemental Information Labs LDL Cholesterol 84 mg/dL (0-130) 09/02/18 HDL Cholesterol 61 mg/dL (40-) 09/02/18 Triglycerides 150 mg/dL (-199) 09/02/18 VLDL Cholesterol 30 mg/dL (5-40) 09/02/18 Diagnostics Electrocardiogram 12/24/17 Chest X-Ray 07/29/18 09/12/18 1331 <Electronically signed by Roland Cage MD> Date Roland Tan Signature: Date (if applicable) CC: Alvarez Mccoy MD CNCO Observed: 09/10/2018 Status: COMPLETED Source: [place] 11:01 AM [facility] REPOSITORY HNO ID: [id number] Author: Mammography Coordinator Service: (none) Author Type: Physician Type: Letter Filed: 09/11/2018 11:31 PM Note Text: September 10, 2018 PID: [id number] Quyen Coker [facility] [place] [address] Dear Ms. Coker, We are pleased to inform you that the results of your recent breast imaging exam on 09/10/2018 are normal. Early detection of cancer is very important. We also understand recommendations regarding breast cancer screening are controversial. Please discuss with your primary care provider which strategy is best for you and whether a mammogram is right for you. Your imaging studies and report will be kept on file at [facility] as part of your permanent medical record and are available for your continuing care. Thank you for allowing us to help in meeting your health care needs. Sincerely, Dr. Gonsales Interpreting Radiologist [facility] (Normal over 40) [facility] Observed: 09/10/2018 Status: F Source: [place] 10:43 AM [facility] REPOSITORY * * *Final Report* * * DATE OF EXAM: Sep 10 2018 10:43AM WRW [id number] - [facility] / PROCEDURE REASON: multiple diagnoses * * * * Physician Interpretation * * * * RESULT: #[id number] - [facility] BILATERAL DIGITAL DIAGNOSTIC MAMMOGRAM WITH CAD: 09/10/2018 HISTORY: Multiple Diagnose/6 month followup post biopsy left /priors available for comparison. RESULT: TECHNIQUE: The study was acquired using full field digital technology and interpreted from soft copy. Current study was also evaluated with a Computer Aided Detection (CAD). Comparison is made to exams dated: 10/17/2017 ultrasound, 10/17/2017 mammogram, 02/13/2017 mammogram, and 09/04/2016 mammogram - [facility]. There are scattered fibroglandular elements in both breasts. Lumpectomy scar at the posterior upper left breast is stable. A biopsy clip is present in the region of residual calcifications at the lower inner left breast, middle depth, from recent benign stereotactic biopsy. There are mole markers on the left breast. No significant masses, calcifications, or other findings are seen in either breast. IMPRESSION: BENIGN FINDING There is no mammographic evidence of malignancy. A 1 year screening mammogram is recommended. Nomi royal/giovanny:09/10/2018 11:01:46 Cash Room Clerk(s): Lexus Leonard RT(R)(M), [facility] letter sent: Normal over 40 Mammogram BI-RADS: 2 Benign finding Multiple national specialty organizations have released breast cancer screening guidelines for women at average risk for developing breast cancer - guidelines that are based on both evidence and opinion, yet differ on when to start and how often to screen for breast cancer. With representation from Breast Imaging, Internal Medicine, Women's Health, Family Medicine, and Medical/Surgical Oncology, the [facility] has carefully reviewed the data and reached the following consensus: 1) All women should engage in shared decision-making with their providers to decide when to start and how often to screen; 2) All women should have the opportunity to start screening mammography at age 40; 3) For women ages 45-55, we recommend annual screening mammograms; 4) For women ages 55 and over, we support both the transition from an annual to a biennial interval if this aligns more with patient's values and preferences, or continuation with annual screening; 5) All women should discuss with their providers when to stop screening mammograms. Aerologist: Giovanny Transcribe Date/Time: Sep 10 2018 10:43A Dictated by: NOMI GONSALES MD This examination was interpreted and the report reviewed and electronically signed by: NOMI GONSALES MD on Sep 10 2018 11:01AM EST [id number] PROGRESS Observed: 09/10/2018 Status: COMPLETED Source: [place] 10:06 AM [facility] REPOSITORY HNO ID: [id number] Author: Keyonna Cazares Service: (none) Author Type: (none) Type: Progress Notes Filed: 09/10/2018 11:04 AM Note Text: Radiology Service Progress Note PATIENT NAME: Quyen Coker DATE OF SERVICE: September 10, 2018 TIME: 10:06 AM PATIENT IDENTITY VERIFICATION COMPLETED USING TWO (2) METHODS: Patient confirmed name verbally and Date of . PATIENT GENDER DATA: Female. status: : No status: NO. PATIENT RELEVANT IMPLANT DATA REVIEWED: Not Applicable RADIOLOGY DEPARTMENT: Women's Health yan diag mammogram PERIPHERAL IV DATA: Not applicable SIGNED BY: Keyonna Cazares September 10, 2018 10:06 AM CNOVSP Observed: 09/03/2018 Status: COMPLETED Source: [place] 9:10 AM [facility] REPOSITORY Visit (SP) Office ([place]) QUYEN COKER ([id number]) 1940 F CHT Date Time Provider Department 09/03/18 9:10 AM SUJIT VASQUEZ During your visit today, we recorded the following information about you: Temperature Pulse Blood pressure Weight 97.7 degrees 65/minute 138/77 100.2 kg Elisa Weber LPN, JUAN 09/03/2018 9:01 AM Signed Est pt. Discuss recent lab results, tx tomorrow JUAN Traylor DO 09/03/2018 9:42 AM Signed Diagnosis: 1) Metastatic colon cancer. 2) DCIS. 3) IMV thrombus. 4) DVT. HPI: The patient is a 78 yo female with a PMH significant for hyperlipidemia, HTN, CAD (PR, CABG x2 2011; stent x1 2013), PVD (carotid artery stenosis s/p CEA left side 2012), sleep apnea (uses CPAP), arthritis (chronic lower back and from lower thoracic area to the neck pain). She developed rectal bleeding in March 2015 and underwent evaluation with EGD. Evidently that study was normal. Next underwent colonoscopy and was observed to have a tumor in the cecum. Had normal colonoscopy about 2 years prior. Underwent right hemicolectomy 07/28/2015. 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 Through muscularis propria into subserosal adipose tissue, but not extending to the serosal surface. All margins negative. No lymphovascular invasion. No perineural invasion. No tumor deposits. None of 14 nodes positive. No evidence MSI by IHC. Had screening mammogram 08/2015. Abnormality left breast. Dx mammo and US 09/06/2015. 6.5 x 7.9 mm nodular density with focal calcifications in fthe slightly upper lateral portion of the left breast. Underwent stereotactic core biopsy 09/15/2015. DCIS, cribriform and solid, grade 2, single cell necrosis; no invasive carcinoma. MRI of the breast 10/11/2015: Longitudinally oriented area of mild enhancement in the central left breast thought to be due to postbiopsy hemorrhage/inflammation. Tumor along this entire length is thought less likely but cannot be excluded. MRI of the abdomen and pelvis 10/13/2015: Liver: There is a large, heterogeneously enhancing mass within the entire lateral segment of the left hepatic lobe and extending into the medial segment as well. This mass measures approximately 8.2 x 5.8 x 6.3 cm. This is most consistent with neoplasm, perhaps metastatic given the patient's history of colonic carcinoma. No additional hepatic lesions are seen. There is patchy hepatic fatty change throughout the right hepatic lobe. Partial, nonocclusive thrombus within the superior mesenteric vein just cephalad to its 1st branch. Liver biopsy--consistent with colorectal primary. Patient received the fourth cycle chemotherapy on 12/22/2015. She developed profuse diarrhea and presented to the emergency department for dehydration and shortness of breath. She was found to be an RVR atrial fibrillation with significant hypomagnesemia. She was admitted and started on IV hydration and magnesium replacement as well as medical management of atrial fibrillation. The diarrhea however continued for several more days during which she was given supportive care. Following that she developed an episode of ileus which extend her hospital stay. She was eventually discharged to rehabilitation. This morning she underwent an ultrasound of both lower extremities. She was found to have an acute DVT in the right common femoral vein. Treated with apixaban. Underwent left-sided lumpectomy for DCIS. Specimen - partial breast Procedure - excision with wire-guided localization Lymph node sampling ? no lymph nodes present Specimen integrity - single intact specimen Specimen size ? 15 x 9 x 4 cm Specimen laterality ? left Tumor site ? not specified Size (extent) of DCIS ? 0.3 cm in greatest dimension. See comment. 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 Architectural pattern - cribriform Nuclear grade - grade 2 (intermediate) Necrosis ? not identified Margins ? margin uninvolved by ductal carcinoma in situ. The tumor is 2 cm away from the closest anterior and posterior margins Treatment effect - no known presurgical therapy. Lymph nodes ? not submitted Distant metastasis ? not replicable Additional Pathologic Findings ? fibrocystic changes. - Focal changes consistent with previous biopsy site. Previous therapy: 1) FOLFOX x1; FOLFOX with Vectibix x3. 2) Underwent left hepatectomy 04/28/2016. Final pathology reviewed. Positive margin was cauterized during surgery. 3) Xeloda after liver directed therapy. Started cycle #3 11/27/2016 through 02/2017. 4) Infusional 5-fluorouracil with oxaliplatin on diagnosis lung metastasis. PD. Current therapy: 1) FOLFIRI. Presents for ongoing oncologic management. Interim history: Vectibix was added to her treatment on 08/07/2018 for progression of liver metastasis by CT imaging. Her side effect profile was a same but her symptoms were more persistent. Specifically she had longer lasting fatigue and it took until day 11 before she felt better. She also had cold chills and hot flashes associated with diaphoresis that lasted 2-3 days rather than the typical 1 day. Nausea was more problematic. She also had more feet swelling associated with numbness and tingling of the feet. That subsided. She had one day of diarrhea associated with abdominal cramping. However she noticed hemorrhoidal bleeding on days 7 through 11. Mouth sores are worse for several days and most concerning was she had more skin toxicity particularly of the fingertips and feet. She had painful dry cracks in the tips of the fingers. PMH, medications and allergies as below personally reviewed by me today. Any changes documented in appropriate section. ROS: Constitutional: No episodes of fever and night sweats. Neuro: See above. HEENT: No recent change in voice, vision or hearing (significant b/l hearing loss--underwent audiogram early December 2017. Study showed a 50% decline in her hearing. Presumably this was from oxaliplatin.). Resp: Currently no cough, sputum production or wheezing. CVS: Denies exertional chest pain, PND, orthopnea. GI: See above. : No dysuria or gross hematuria. Stress incontinence--stable. Endo: Denies polyuria and polydipsia. Denies heat and cold intolerance. Musculoskeletal: Denies bone, back, joint and muscular pain. Derm: Denies diffuse pruritis. Heme: No unusual bleeding and/or unexplained bruising. Psych: Normal mood. PHYSICAL EXAM: Vitals: Blood pressure 138/77, pulse 65, temperature 36.5 ?C (97.7 ?F), weight 100.2 kg (221 lb). Well-appearing and in no acute distress. EYES: Sclerae are anicteric bilaterally. NECK: Supple. LYMPHATIC: There is no palpable cervical, supraclavicula adenopathy. RESPIRATORY: Inspiratory breath sounds are of normal intensity in all pedersen. No rales, wheezes or rhonchi. CARDIOVASCULAR: Rhythm is regular. Normal intensity S1/S2. There is no gallop or murmur. ABDOMEN: The abdomen is nondistended. No organomegaly. No tenderness. SKIN: No jaundice or rash. No petechiae. NEUROLOGIC: foil cutter II-XII are grossly intact. No focal motor weakness. ASSESSMENT/PLAN: (C18.2) Malignant neoplasm of ascending colon (HCC) (primary encounter diagnosis) (C78.7) Liver metastasis (HCC) Assessment: -KPS is 80%. -sam wild type. -Patient had completed several months of capecitabine following resection for an isolated liver metastasis. She tolerated capecitabine only marginally and was on lower doses for the last couple cycles. She had marked difficulty with diarrhea, dehydration and several hospitalizations/ER visits for toxicity. However, lung nodule had been stable. -PD with new liver and progressive lung metastasis 08/2017. 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 Also documented 50% decline in hearing presumably from oxaliplatin also. -Tolerates FOLFIRI better with the addition of hydration on day 1 and 3. Did not tolerate panitumumab ?1 dose of 1.5 mg/kg. -PET scan indicated no disease in the liver. Presumably lung nodules too small to light up on PET scan anyway. It is not clear that she had her blood sugar checked prior to the PET scan I'm not sure if the study was false negative. Plan: -Continue FOLFIRI for now. -Will investigate if blood sugar was obtained prior to the PET scan. -Continue hydration on day 1 and day 3. -Emend day 1. Continue the addition of dexamethasone 4 mg twice a day on days 2 and 3. 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 Plan: -Continue Xarelto. Sujit Vasquez DO Referring Provider: SUJIT VASQUEZ [[id number]] Allergies As of Date: 09/03/2018 Noted Allergy Reaction CORGARD (NADOLOL) 07/21/2015 12 - Shortness of Breath PENN 07/21/2015 12 - Shortness of Breath MORPHINE 07/21/2015 12 - Shortness of Breath Comments: Pt says she can tolerate oxycodone. PENICILLINS 07/21/2015 12 - Shortness of Breath PERFUMES 12/07/2017 12 - Shortness of Breath PRAVACHOL (PRAVASTATIN) 07/21/2015 12 - Shortness of Breath SULFITE 07/21/2015 12 - Shortness of Breath Comments: Sulfites in food. Verified by refrigerator tester. ZOCOR (SIMVASTATIN) 07/21/2015 12 - Shortness of Breath Comments: Pt reports allergy to brand Zocor, tolerates generic. 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] Order(s):potassium chloride (KLOR-CON) 20 mEq packetTake 20 mEq by mouth once daily.Disp: 90 PacketRfl: 3 Follow-up and Disposition History Recorded Prescriptions as of 09/03/2018 Sig: DEXAMETHASONE 4 MG TABLET Take 1 tablet by mouth twice * ONDANSETRON HCL 8 MG TABLET Take 1 tablet by mouth every * FUROSEMIDE 40 MG TABLET Take 40 mg by mouth once wilman* GLIMEPIRIDE 2 MG TABLET Take 2 mg by mouth daily with* OMEPRAZOLE 40 MG CAPSULE,MELODY* Take 1 capsule by mouth once * HYOSCYAMINE 0.125 MG DISINTEG* Dissolve 2 tablets under the * RIVAROXABAN 15 MG TABLET Take 1 tablet by mouth daily * Patient taking differently: Take by mouth daily with dinn* LIDOCAINE-PRILOCAINE 2.5 %-2.* Apply 1 application to affect* SODIUM CHLORIDE 0.9% FLUSH Access implanted vascular acc* HEPARIN, PORCINE (PF) 100 UNI* Access implanted vascular acc* LOPERAMIDE 2 MG TABLET Take 2 mg by mouth as needed. MONTELUKAST 10 MG TABLET Take 1 tablet by mouth daily * MAGNESIUM OXIDE 400 MG (241.3* Take 400 mg by mouth twice da* ACETAMINOPHEN 500 MG TABLET Take 1,000 mg by mouth as nee* DIPHENHYDRAMINE 25 MG TABLET Take 50 mg by mouth as needed. ISOSORBIDE MONONITRATE ER 60 * Take 60 mg by mouth once wilman* ASPIRIN 81 MG TABLET,DELAYED * Take 81 mg by mouth once wilman* METOPROLOL TARTRATE 50 MG TAB* Take 50 mg by mouth twice wyatt* LISINOPRIL 10 MG TABLET Take 10 mg by mouth once wilman* MOMETASONE 220 MCG (60 DOSES)* Inhale 1 Puff as instructed. CHOLECALCIFEROL (VITAMIN D3) * Take 1 tablet by mouth once d* SIMVASTATIN 40 MG TABLET Take 20 mg by mouth daily at * NITROGLYCERIN 0.3 MG SUBLINGU* Dissolve 0.3 mg under the ton* ALBUTEROL SULFATE HFA 90 MCG/* Inhale 2 Puffs as instructed * EPINEPHRINE 0.15 MG/0.15 ML I* by INJECTION(UNSPECIFIED PARE* LORATADINE 10 MG TABLET Take 10 mg by mouth as needed. POTASSIUM CHLORIDE 20 MEQ ORA* Take 20 mEq by mouth once wyatt* AZITHROMYCIN 250 MG TABLET TAKE 2 TABS ON THE FIRST DAY,* MKXUANLMJUPEHQA-HYXOMIS-FVHMO* Take 10 mL by mouth every 4 h* Patient not taking: Reported on 09/03/2018 SODIUM CHLORIDE 0.9% FLUSH Access implanted vascular acc* HEPARIN LOCK FLUSH (PORCINE) * Access implanted vascular acc* Medication notes this encounter AZITHROMYCIN 250 MG TABLET >> Elisa Weber LPN, UX MANAGER 09/03/2018 8:59 AM >> ELISA WEBER Sep 03, 2018 8:59 AM discontinued Problem List As Of Date 09/03/2018 Noted Resolved Malignant neoplasm of ascending colon (HCC) [C1*INVALID FOR* Abnormal mammogram of left breast [R92.8] INVALID FOR* 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] INVALID FOR* Abnormal magnetic resonance imaging of liver [R*INVALID FOR* Liver metastasis (HCC) [C78.7] INVALID FOR* Diabetes (HCC) [E11.9] INVALID FOR* Hearing loss [H91.90] INVALID FOR* Hypertension [I10] INVALID FOR* Hyperlipidemia [E78.5] INVALID FOR* Carotid artery disease (HCC) [I77.9] INVALID FOR* Coronary artery disease [I25.10] INVALID FOR* Asthma [J45.909] INVALID FOR* Sleep apnea [G47.30] INVALID FOR* Arthritis [M19.90] INVALID FOR* Fibromyalgia [M79.7] INVALID FOR* Atrial arrhythmia [I49.8] INVALID FOR* H/O degenerative disc disease [Z87.39] INVALID FOR* Spondylolysis [M43.00] INVALID FOR* Radiculopathy [M54.10] INVALID FOR* Eczema [L30.9] INVALID FOR* Anemia [D64.9] INVALID FOR* 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 Discuss recent lab results, tx tomorrow Elisa Yessy Weber LPN Encounter Status:Closed by SUJIT VASQUEZ DO on 09/03/18 PROGRESS Observed: 09/03/2018 Status: COMPLETED Source: [place] 9:06 AM [facility] REPOSITORY HNO ID: [id number] Author: Sujit Vasquez Service: (none) Author Type: Physician Type: Progress Notes Filed: 09/03/2018 9:42 AM Note Text: Diagnosis: 1) Metastatic colon cancer. 2) DCIS. 3) IMV thrombus. 4) DVT. HPI: The patient is a 78 yo female with a PMH significant for hyperlipidemia, HTN, CAD (PR, CABG x2 2011; stent x1 2013), PVD (carotid artery stenosis s/p CEA left side 2012), sleep apnea (uses CPAP), arthritis (chronic lower back and from lower thoracic area to the neck pain). She developed rectal bleeding in March 2015 and underwent evaluation with EGD. Evidently that study was normal. Next underwent colonoscopy and was observed to have a tumor in the cecum. Had normal colonoscopy about 2 years prior. Underwent right hemicolectomy 07/28/2015. 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 Through muscularis propria into subserosal adipose tissue, but not extending to the serosal surface. All margins negative. No lymphovascular invasion. No perineural invasion. No tumor deposits. None of 14 nodes positive. No evidence MSI by IHC. Had screening mammogram 08/2015. Abnormality left breast. Dx mammo and US 09/06/2015. 6.5 x 7.9 mm nodular density with focal calcifications in fthe slightly upper lateral portion of the left breast. Underwent stereotactic core biopsy 09/15/2015. DCIS, cribriform and solid, grade 2, single cell necrosis; no invasive carcinoma. MRI of the breast 10/11/2015: Longitudinally oriented area of mild enhancement in the central left breast thought to be due to postbiopsy hemorrhage/inflammation. Tumor along this entire length is thought less likely but cannot be excluded. MRI of the abdomen and pelvis 10/13/2015: Liver: There is a large, heterogeneously enhancing mass within the entire lateral segment of the left hepatic lobe and extending into the medial segment as well. This mass measures approximately 8.2 x 5.8 x 6.3 cm. This is most consistent with neoplasm, perhaps metastatic given the patient's history of colonic carcinoma. No additional hepatic lesions are seen. There is patchy hepatic fatty change throughout the right hepatic lobe. Partial, nonocclusive thrombus within the superior mesenteric vein just cephalad to its 1st branch. Liver biopsy--consistent with colorectal primary. Patient received the fourth cycle chemotherapy on 12/22/2015. She developed profuse diarrhea and presented to the emergency department for dehydration and shortness of breath. She was found to be an RVR atrial fibrillation with significant hypomagnesemia. She was admitted and started on IV hydration and magnesium replacement as well as medical management of atrial fibrillation. The diarrhea however continued for several more days during which she was given supportive care. Following that she developed an episode of ileus which extend her hospital stay. She was eventually discharged to rehabilitation. This morning she underwent an ultrasound of both lower extremities. She was found to have an acute DVT in the right common femoral vein. Treated with apixaban. Underwent left-sided lumpectomy for DCIS. Specimen - partial breast Procedure - excision with wire-guided localization Lymph node sampling ? no lymph nodes present Specimen integrity - single intact specimen Specimen size ? 15 x 9 x 4 cm Specimen laterality ? left Tumor site ? not specified Size (extent) of DCIS ? 0.3 cm in greatest dimension. See comment. 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 Architectural pattern - cribriform Nuclear grade - grade 2 (intermediate) Necrosis ? not identified Margins ? margin uninvolved by ductal carcinoma in situ. The tumor is 2 cm away from the closest anterior and posterior margins Treatment effect - no known presurgical therapy. Lymph nodes ? not submitted Distant metastasis ? not replicable Additional Pathologic Findings ? fibrocystic changes. - Focal changes consistent with previous biopsy site. Previous therapy: 1) FOLFOX x1; FOLFOX with Vectibix x3. 2) Underwent left hepatectomy 04/28/2016. Final pathology reviewed. Positive margin was cauterized during surgery. 3) Xeloda after liver directed therapy. Started cycle #3 11/27/2016 through 02/2017. 4) Infusional 5-fluorouracil with oxaliplatin on diagnosis lung metastasis. PD. Current therapy: 1) FOLFIRI. Presents for ongoing oncologic management. Interim history: Vectibix was added to her treatment on 08/07/2018 for progression of liver metastasis by CT imaging. Her side effect profile was a same but her symptoms were more persistent. Specifically she had longer lasting fatigue and it took until day 11 before she felt better. She also had cold chills and hot flashes associated with diaphoresis that lasted 2-3 days rather than the typical 1 day. Nausea was more problematic. She also had more feet swelling associated with numbness and tingling of the feet. That subsided. She had one day of diarrhea associated with abdominal cramping. However she noticed hemorrhoidal bleeding on days 7 through 11. Mouth sores are worse for several days and most concerning was she had more skin toxicity particularly of the fingertips and feet. She had painful dry cracks in the tips of the fingers. PMH, medications and allergies as below personally reviewed by me today. Any changes documented in appropriate section. ROS: Constitutional: No episodes of fever and night sweats. Neuro: See above. HEENT: No recent change in voice, vision or hearing (significant b/l hearing loss--underwent audiogram early December 2017. Study showed a 50% decline in her hearing. Presumably this was from oxaliplatin.). Resp: Currently no cough, sputum production or wheezing. CVS: Denies exertional chest pain, PND, orthopnea. GI: See above. : No dysuria or gross hematuria. Stress incontinence--stable. Endo: Denies polyuria and polydipsia. Denies heat and cold intolerance. Musculoskeletal: Denies bone, back, joint and muscular pain. Derm: Denies diffuse pruritis. Heme: No unusual bleeding and/or unexplained bruising. Psych: Normal mood. PHYSICAL EXAM: Vitals: Blood pressure 138/77, pulse 65, temperature 36.5 ?C (97.7 ?F), weight 100.2 kg (221 lb). Well-appearing and in no acute distress. EYES: Sclerae are anicteric bilaterally. NECK: Supple. LYMPHATIC: There is no palpable cervical, supraclavicula adenopathy. RESPIRATORY: Inspiratory breath sounds are of normal intensity in all pedersen. No rales, wheezes or rhonchi. CARDIOVASCULAR: Rhythm is regular. Normal intensity S1/S2. There is no gallop or murmur. ABDOMEN: The abdomen is nondistended. No organomegaly. No tenderness. SKIN: No jaundice or rash. No petechiae. NEUROLOGIC: foil cutter II-XII are grossly intact. No focal motor weakness. ASSESSMENT/PLAN: (C18.2) Malignant neoplasm of ascending colon (HCC) (primary encounter diagnosis) (C78.7) Liver metastasis (HCC) Assessment: -KPS is 80%. -sam wild type. -Patient had completed several months of capecitabine following resection for an isolated liver metastasis. She tolerated capecitabine only marginally and was on lower doses for the last couple cycles. She had marked difficulty with diarrhea, dehydration and several hospitalizations/ER visits for toxicity. However, lung nodule had been stable. -PD with new liver and progressive lung metastasis 08/2017. 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 Also documented 50% decline in hearing presumably from oxaliplatin also. -Tolerates FOLFIRI better with the addition of hydration on day 1 and 3. Did not tolerate panitumumab ?1 dose of 1.5 mg/kg. -PET scan indicated no disease in the liver. Presumably lung nodules too small to light up on PET scan anyway. It is not clear that she had her blood sugar checked prior to the PET scan I'm not sure if the study was false negative. Plan: -Continue FOLFIRI for now. -Will investigate if blood sugar was obtained prior to the PET scan. -Continue hydration on day 1 and day 3. -Emend day 1. Continue the addition of dexamethasone 4 mg twice a day on days 2 and 3. 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 Plan: -Continue Xarelto. Sujit Vasquez, DO KELLEN ABS GR + CBC Collected: 09/03/2018 Status: F Source: [place] 8:46 AM [facility] REPOSITORY TYPE CODE TESTS RESULT OUT OF REFERENCE UNITS RANGE LAB WWBC 3.70-11.00 k/uL [facility] WBC 4.68 LAB WRBC 3.90-5.20 m/uL Low [place] RBC 3.51 LAB WHGB 11.5-15.5 g/dL Low [place] Hemoglobin 10.9 LAB WHCT 36.0-46.0 % Low [facility] Hematocrit 35.0 LAB WMCV 80.0-100.0 fL [place] MCV 99.7 LAB WMCH 26.0-34.0 pg [facility] MCH 31.1 LAB WMCHC 30.5-36.0 g/dL [place] MCHC 31.1 LAB WRDW 11.5-15.0 % [place] High RDW 15.1 LAB WPLT 150-400 k/uL [place] Platelet Cnt 205 LAB WMPV 9.0-12.7 fL [place] MPV 10.2 Result Comment: Test performed at: [facility], [address] [place] [address]. LAB ABGRAN 1.45-7.50 k/uL Absol Gran 2.44 Count COMP METABOLIC PANEL Collected: 09/03/2018 Status: F Source: [place] 8:46 AM [facility] REPOSITORY TYPE CODE TESTS RESULT OUT OF REFERENCE UNITS RANGE LAB TP 6.3-8.0 g/dL Protein, Low Total 6.1 LAB ALB 3.9-4.9 g/dL Albumin Low 3.8 LAB CA 8.5-10.2 mg/dL Calcium, Total 9.7 LAB TBIL 0.2-1.3 mg/dL Bilirubin, Total 0.3 LAB ALKP 34-123 U/L Alkaline High Phosphatase 150 LAB AST 13-35 U/L AST 28 LAB GLU 74-99 mg/dL Glucose High 209 LAB BUN 7-21 mg/dL BUN 19 LAB CRET 0.58-0.96 mg/dL Creatinine 0.90 LAB NA 136-144 mmol/L Sodium 138 LAB K 3.7-5.1 mmol/L Potassium 4.0 LAB CL 97-105 mmol/L Chloride High 106 LAB CO2 22-30 mmol/L CO2 25 LAB AGAP mmol/L Anion Gap 7 LAB ALT 7-38 U/L ALT 22 LAB GFRAA eGFR- >60 Amer. LAB GFRNAA . eGFR-All Other Races >60 Result Comment: eGFR (Estimated GFR) Units of measure: mL/min/1.73 meters squared eGFR is derived from the reexpressed MDRD Study equation using the following parameters: serum creatinine, age, gender and race. The creatinine assay has been calibrated to be traceable to IDCampanja. An eGFR <60 mL/min/1.73m2 for >3 months is consistent with chronic kidney disease. Refer to KDOQI guidelines for clinical interpretation. In patients with unstable renal function, e.g. those with acute kidney injury, the eGFR may not accurately reflect actual GFR. CEA Collected: 09/03/2018 Status: F Source: [place] 8:46 AM [facility] REPOSITORY TYPE CODE TESTS RESULT OUT OF RANGE REFERENCE UNITS LAB CEA 0.0-2.9 ng/mL High CEA 6.6 Result Comment: Test analyzed by the [place] DxI method. Performed By: #### CEA #### [facility] [address] [place], [place] [address] LIVER PROFILE Collected: 09/02/2018 Status: F Source: [place] 9:50 AM [facility] REPOSITORY TYPE CODE TESTS RESULT OUT OF RANGE REFERENCE UNITS LAB L501.1500 6.4-8.2 g/dL Normal T PROT 6.5 LAB L501.1800 3.2-5.0 g/dL Normal ALB 3.4 LAB L501.1950 2.2-4.2 g/dL Normal GLOB 3.1 LAB L501.4100 15-37 U/L Normal AST 28 LAB L501.4305 45-117 U/L High ALK P 152 LAB L501.4405 13-56 U/L Normal ALT 30 LAB L501.4600 0.20-1.00 mg/dL Normal T BILI 0.50 LAB L501.4700 0.00-0.30 mg/dL Normal D BILI 0.18 Performed By: #### L500.3400, L500.4100 #### [facility] [address] [place], [address] LIPID PROFILE Collected: 09/02/2018 Status: F Source: [place] 9:50 AM [facility] REPOSITORY TYPE CODE TESTS RESULT OUT OF RANGE REFERENCE UNITS LAB L501.4900 200 mg/dL Normal CHOL 175 Result Comment: <200 mg/dL Desirable 200-240 mg/dL Borderline >240 mg/dL High Risk LAB L501.5000 mg/dL Normal TRIG 150 Result Comment: The drugs N-Acetylcysteine and Metamizole may falsely depress this assay. Serum Triglycerides Reference Interval Normal <150 mg/dL Borderline high 150 - 199 mg/dL High 200 - 499 mg/dL Very High > or = 500 mg/dL LAB L501.6400 mg/dL Normal HDL 61 Result Comment: The drugs N-Acetylcysteine and Metamizole may falsely depress this assay. Reference Range HDL <40 mg/dL Low HDL Cholesterol HDL >or= 60 mg/dL High HDL Cholesterol LAB L501.6500 0-130 mg/dL Normal LDL 84 LAB L501.6600 5-40 mg/dL Normal VLDL 30 Performed By: #### L500.3400, L500.4100 #### [facility] [address] [place], [address] NM PET/CT SKULL-THIGH Observed: 08/13/2018 Status: F Source: [place] INIT 10:56 AM [facility] REPOSITORY * * *Final Report* * * DATE OF EXAM: Aug 13 2018 10:56AM MDP 0060 - NM PET/CT SKULL-THIGH INIT / PROCEDURE REASON: multiple diagnoses * * * * Physician Interpretation * * * * FDG PET/CT SCAN 08/13/2018 9:28 AM: CLINICAL HISTORY: 78 years old female with a history of colon cancer status post right hemicolectomy 07/28/2015, hepatic metastases status post left hepatectomy; follow-up evaluation. Left breast DCIS status post lumpectomy. INDICATION: Subsequent treatment strategy. TECHNIQUE: 14.1 mCi 18-FDG IV, followed about 1 hour later by PET imaging from base of the skull to proximal femur. Non contrast CT was performed for attenuation correction and anatomic localization purposes. CT Dose-Length Product (DLP): 507 mGy*cm. CT Dose Reduction Employed: Yes BLOOD GLUCOSE: 0 mg/dL COMPARISON: None. CORRELATION: 08/02/2018 CT abdomen pelvis RESULT: HEAD AND NECK: Likely physiologic activity in the oral cavity, tonsillar regions, salivary glands. No suspicious cervical lymphadenopathy. CHEST: Left upper lobe 6 mm nodule on 4:96 is not FDG avid, max SUV 0.8. No FDG avid pulmonary nodules. Non-FDG avid right lower lobe calcified pulmonary nodule.Note: pulmonary nodules <7 mm may be too small to accurately characterize on PET/CT. There is extensive aortic and coronary atherosclerosis. Median sternotomy wires. There is no hypermetabolic hilar or mediastinal lymphadenopathy. Left breast uptake posteriorly, max SUV 2.5 on 4:114 corresponds to the presumed prior lumpectomy site, given the mild misregistration artifact secondary to respiratory motion. There is no hypermetabolic axillary lymphadenopathy. Right IJ infusion port, tip in the right atrium. ABDOMEN AND PELVIS: No discrete hypermetabolic lesion corresponding to the enlarging hepatic lesions on the correlative CT. Redemonstration of findings of left hepatectomy on the nondiagnostic noncontrast enhanced CT images. No focal abnormal uptake in the bowel, including the right lower quadrant: Enteric anastomosis. There are no hypermetabolic foci in the spleen, or the adrenals. There is no hypermetabolic abdominal or pelvic lymphadenopathy. Physiologic activity in the bowel, renal collecting system, and the bladder. Scattered aortoiliac atherosclerotic. MUSCULOSKELETAL: There are no hypermetabolic osseous lesions. IMPRESSION: 1. Neck: No hypermetabolic foci 2. Chest: * Left breast lumpectomy site mild uptake may be secondary to post treatment changes, prior PET/CT not available for comparison. Recommend correlation with breast imaging. * No evidence of FDG avid neoplastic process in the lungs, vivek or mediastinum. 3. Abdomen and pelvis: No evidence of FDG avid neoplastic process 4. Musculoskeletal: No neoplastic hypermetabolic lesions Aerologist: PSCB Transcribe Date/Time: Aug 13 2018 11:25A Dictated by : KASSANDRA WILLS MD This examination was interpreted and the report reviewed and electronically signed by: KASSANDRA WILLS MD on Aug 13 2018 1:51PM EST [id number] Observed: 08/13/2018 Status: COMPLETED Source: [place] 9:44 AM [facility] REPOSITORY [facility] ID: [id number] Author: Kim Chen [facility] Service: (none) Author Type: (none) Type: Progress Notes Filed: 08/13/2018 9:44 AM Note Text: RADIOLOGY SERVICE PROGRESS NOTE SERVICE DATE: 08/13/2018 SERVICE TIME: 9:44 AM PATIENT IDENTITY VERIFICATION COMPLETED USING TWO (2) METHODS: Patient confirmed name and Date of verbally. PATIENT GENDER DATA: .female : No ALLERGIES: Reviewed and unchanged MEDICATIONS REVIEWED: Not applicable PATIENT RELEVANT IMPLANT DATA REVIEWED: Not Applicable CREATININE: Creatinine Date Value Ref Range Status 08/06/2018 0.99 (H) 0.58 - 0.96 mg/dL Final 08/02/2018 0.98 (H) 0.58 - 0.96 mg/dL Final 07/23/2018 1.07 (H) 0.58 - 0.96 mg/dL Final eGFR-All Other Races Date Value Ref Range Status 08/06/2018 55 . Final Comment: eGFR (Estimated GFR) Units of measure: mL/min/1.73 meters squared eGFR is derived from the reexpressed MDRD Study equation using the following parameters: serum creatinine, age, gender and race. The creatinine assay has been calibrated to be traceable to IDMS. An eGFR <60 mL/min/1.73m2 for >3 months is consistent with chronic kidney disease. Refer to KDOQI guidelines for clinical interpretation. In patients with unstable renal function, e.g. those with acute kidney injury, the eGFR may not accurately reflect actual GFR. eGFR- Date Value Ref Range Status 08/06/2018 >60 Final P.O.C.T. RESULTS: N/A August 13, [address] PERFORMED: No IV SITE: Ambulatory: A peripheral IV was started in the Right antecubital site with a Angio cath: 22 gauge. POST EXAM PIV STATUS: Discontinued PROCEDURE TYPE: NM INJECT: PET/CT WHOLE BODY SCAN. 14.1 mCi F18 FDG. No other medications given.. ADMINISTRATION TIME: 0935 PATIENT DISCHARGED TO: Ambulatory patient, left [place] department area. A Diagnostic radioactive procedure has taken place, with no further precautions necessary other than routine body substance precautions. More information regarding radiation safety can be found using this link: [email or web address] SIGNATURE: Kim Chen [facility] PATIENT NAME: Quyen Coker DATE: August 13, 2018 TIME: 9:44 AM PAGER/CONTACT #: PROGRESS Observed: 08/06/2018 Status: COMPLETED Source: [place] 10:17 AM [facility] REPOSITORY [facility] ID: [id number] Author: Sujit Vasquez Service: (none) Author Type: Physician Type: Progress Notes Filed: 08/06/2018 10:45 AM Note Text: Diagnosis: 1) Metastatic colon cancer. 2) DCIS. 3) IMV thrombus. 4) DVT. HPI: The patient is a 78 yo female with a PMH significant for hyperlipidemia, HTN, CAD (PR, CABG x2 2011; stent x1 2013), PVD (carotid artery stenosis s/p CEA left side 2012), sleep apnea (uses CPAP), arthritis (chronic lower back and from lower thoracic area to the neck pain). She developed rectal bleeding in March 2015 and underwent evaluation with EGD. Evidently that study was normal. Next underwent colonoscopy and was observed to have a tumor in the cecum. Had normal colonoscopy about 2 years prior. Underwent right hemicolectomy 07/28/2015. 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 Through muscularis propria into subserosal adipose tissue, but not extending to the serosal surface. All margins negative. No lymphovascular invasion. No perineural invasion. No tumor deposits. None of 14 nodes positive. No evidence MSI by IHC. Had screening mammogram 08/2015. Abnormality left breast. Dx mammo and US 09/06/2015. 6.5 x 7.9 mm nodular density with focal calcifications in fthe slightly upper lateral portion of the left breast. Underwent stereotactic core biopsy 09/15/2015. DCIS, cribriform and solid, grade 2, single cell necrosis; no invasive carcinoma. MRI of the breast 10/11/2015: Longitudinally oriented area of mild enhancement in the central left breast thought to be due to postbiopsy hemorrhage/inflammation. Tumor along this entire length is thought less likely but cannot be excluded. MRI of the abdomen and pelvis 10/13/2015: Liver: There is a large, heterogeneously enhancing mass within the entire lateral segment of the left hepatic lobe and extending into the medial segment as well. This mass measures approximately 8.2 x 5.8 x 6.3 cm. This is most consistent with neoplasm, perhaps metastatic given the patient's history of colonic carcinoma. No additional hepatic lesions are seen. There is patchy hepatic fatty change throughout the right hepatic lobe. Partial, nonocclusive thrombus within the superior mesenteric vein just cephalad to its 1st branch. Liver biopsy--consistent with colorectal primary. Patient received the fourth cycle chemotherapy on 12/22/2015. She developed profuse diarrhea and presented to the emergency department for dehydration and shortness of breath. She was found to be an RVR atrial fibrillation with significant hypomagnesemia. She was admitted and started on IV hydration and magnesium replacement as well as medical management of atrial fibrillation. The diarrhea however continued for several more days during which she was given supportive care. Following that she developed an episode of ileus which extend her hospital stay. She was eventually discharged to rehabilitation. This morning she underwent an ultrasound of both lower extremities. She was found to have an acute DVT in the right common femoral vein. Treated with apixaban. Underwent left-sided lumpectomy for DCIS. Specimen - partial breast Procedure - excision with wire-guided localization Lymph node sampling ? no lymph nodes present Specimen integrity - single intact specimen Specimen size ? 15 x 9 x 4 cm Specimen laterality ? left Tumor site ? not specified Size (extent) of DCIS ? 0.3 cm in greatest dimension. See comment. 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 Architectural pattern - cribriform Nuclear grade - grade 2 (intermediate) Necrosis ? not identified Margins ? margin uninvolved by ductal carcinoma in situ. The tumor is 2 cm away from the closest anterior and posterior margins Treatment effect - no known presurgical therapy. Lymph nodes ? not submitted Distant metastasis ? not replicable Additional Pathologic Findings ? fibrocystic changes. - Focal changes consistent with previous biopsy site. Previous therapy: 1) FOLFOX x1; FOLFOX with Vectibix x3. 2) Underwent left hepatectomy 04/28/2016. Final pathology reviewed. Positive margin was cauterized during surgery. 3) Xeloda after liver directed therapy. Started cycle #3 11/27/2016 through 02/2017. 4) Infusional 5-fluorouracil with oxaliplatin on diagnosis lung metastasis. PD. Current therapy: 1) FOLFIRI. Presents for ongoing oncologic management. Interim history: She has no complaints today. Typical toxicities with chemotherapy are stable. The bulk of today's visit was spent reviewing CT scans and plan of care. PMH, medications and allergies as below personally reviewed by me today. Any changes documented in appropriate section. ROS: Constitutional: Denies episodes of fever and night sweats. Neuro: See above. HEENT: No recent change in voice, vision or hearing (significant b/l hearing loss--underwent audiogram early December 2017. Study showed a 50% decline in her hearing. Presumably this was from oxaliplatin.). Resp: See above. CVS: Denies exertional chest pain, PND, orthopnea. GI: See above. : No dysuria or gross hematuria. Stress incontinence--stable. Endo: Denies hot flashes. Denies polyuria and polydipsia. Denies heat and cold intolerance. Musculoskeletal: Denies bone, back, joint and muscular pain. Derm: Denies diffuse pruritis. Heme: No unusual bleeding and/or unexplained bruising. Psych: Normal mood. PHYSICAL EXAM: Vitals: Blood pressure 131/57, pulse 89, temperature 36.8 ?C (98.2 ?F), weight 99.6 kg (219 lb 8 oz). Well-appearing and in no acute distress. EYES: Sclerae are anicteric bilaterally. ASSESSMENT/PLAN: (C18.2) Malignant neoplasm of ascending colon (HCC) (primary encounter diagnosis) (C78.7) Liver metastasis (HCC) Assessment: -sam wild type. -Patient had completed several months of capecitabine following resection for an isolated metastasis. She tolerated capecitabine only marginally and was on lower doses for the last couple cycles. She had marked difficulty with diarrhea, dehydration and several hospitalizations/ER visits for toxicity. However, lung nodule had been stable. 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 -First cycle was complicated by port line rupture. 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 Also now documented 50% decline in hearing presumably from oxaliplatin also. -Tolerates FOLFIRI better with the addition of hydration on day 1 and 3. -I personally reviewed the CT scan images with the patient and her . Progressive disease with localized but Liver metastases. -Discussed with her that I would like to obtain a PET scan. If she is PILAR outside the liver then consider referral for opinion on ablation or alternatively S/P RT. Nonetheless I feel reasonable to add Vectibix back to her regimen albeit at low-dose to start out secondary to the severe diarrhea she had in the past from the drug. I discussed the rationale, logistics, potential risks (including ), benefits and alternatives, as well as the personnel involved in the administration of Vectibix. I answered her questions in detail and she verbalized understanding and agreed with the recommended therapy. Please see the electronic consent document for details of doses and schedule. Plan: -Okay for treatment tomorrow. -Continue hydration on day 1 and day 3. -Emend day 1. Continue the addition of dexamethasone 4 mg twice a day on days 2 and 3. -PET at [facility] when able. 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 Plan: -Continue Xarelto. Sujit Vasquez DO CNOVSP Observed: 08/06/2018 Status: COMPLETED Source: [place] 9:50 AM [facility] REPOSITORY Visit (SP) Office ([place]) QUYEN COKER ([id number]) 1940 F CHT Date Time Provider Department 08/06/18 9:50 AM SUJIT VASQUEZ During your visit today, we recorded the following information about you: Temperature Pulse Blood pressure Weight 98.2 degrees 89/minute 131/57 99.6 kg Elisa Weber LPN, LPN 08/06/2018 10:23 AM Signed Est pt, discuss recent lab results, tx tomorrow JUAN Traylor DO 08/06/2018 10:45 AM Signed Diagnosis: 1) Metastatic colon cancer. 2) DCIS. 3) IMV thrombus. 4) DVT. HPI: The patient is a 78 yo female with a PMH significant for hyperlipidemia, HTN, CAD (PR, CABG x2 2011; stent x1 2013), PVD (carotid artery stenosis s/p CEA left side 2012), sleep apnea (uses CPAP), arthritis (chronic lower back and from lower thoracic area to the neck pain). She developed rectal bleeding in March 2015 and underwent evaluation with EGD. Evidently that study was normal. Next underwent colonoscopy and was observed to have a tumor in the cecum. Had normal colonoscopy about 2 years prior. Underwent right hemicolectomy 07/28/2015. 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 Through muscularis propria into subserosal adipose tissue, but not extending to the serosal surface. All margins negative. No lymphovascular invasion. No perineural invasion. No tumor deposits. None of 14 nodes positive. No evidence MSI by IHC. Had screening mammogram 08/2015. Abnormality left breast. Dx mammo and US 09/06/2015. 6.5 x 7.9 mm nodular density with focal calcifications in fthe slightly upper lateral portion of the left breast. Underwent stereotactic core biopsy 09/15/2015. DCIS, cribriform and solid, grade 2, single cell necrosis; no invasive carcinoma. MRI of the breast 10/11/2015: Longitudinally oriented area of mild enhancement in the central left breast thought to be due to postbiopsy hemorrhage/inflammation. Tumor along this entire length is thought less likely but cannot be excluded. MRI of the abdomen and pelvis 10/13/2015: Liver: There is a large, heterogeneously enhancing mass within the entire lateral segment of the left hepatic lobe and extending into the medial segment as well. This mass measures approximately 8.2 x 5.8 x 6.3 cm. This is most consistent with neoplasm, perhaps metastatic given the patient's history of colonic carcinoma. No additional hepatic lesions are seen. There is patchy hepatic fatty change throughout the right hepatic lobe. Partial, nonocclusive thrombus within the superior mesenteric vein just cephalad to its 1st branch. Liver biopsy--consistent with colorectal primary. Patient received the fourth cycle chemotherapy on 12/22/2015. She developed profuse diarrhea and presented to the emergency department for dehydration and shortness of breath. She was found to be an RVR atrial fibrillation with significant hypomagnesemia. She was admitted and started on IV hydration and magnesium replacement as well as medical management of atrial fibrillation. The diarrhea however continued for several more days during which she was given supportive care. Following that she developed an episode of ileus which extend her hospital stay. She was eventually discharged to rehabilitation. This morning she underwent an ultrasound of both lower extremities. She was found to have an acute DVT in the right common femoral vein. Treated with apixaban. Underwent left-sided lumpectomy for DCIS. Specimen - partial breast Procedure - excision with wire-guided localization Lymph node sampling ? no lymph nodes present Specimen integrity - single intact specimen Specimen size ? 15 x 9 x 4 cm Specimen laterality ? left Tumor site ? not specified Size (extent) of DCIS ? 0.3 cm in greatest dimension. See comment. 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 Architectural pattern - cribriform Nuclear grade - grade 2 (intermediate) Necrosis ? not identified Margins ? margin uninvolved by ductal carcinoma in situ. The tumor is 2 cm away from the closest anterior and posterior margins Treatment effect - no known presurgical therapy. Lymph nodes ? not submitted Distant metastasis ? not replicable Additional Pathologic Findings ? fibrocystic changes. - Focal changes consistent with previous biopsy site. Previous therapy: 1) FOLFOX x1; FOLFOX with Vectibix x3. 2) Underwent left hepatectomy 04/28/2016. Final pathology reviewed. Positive margin was cauterized during surgery. 3) Xeloda after liver directed therapy. Started cycle #3 11/27/2016 through 02/2017. 4) Infusional 5-fluorouracil with oxaliplatin on diagnosis lung metastasis. PD. Current therapy: 1) FOLFIRI. Presents for ongoing oncologic management. Interim history: She has no complaints today. Typical toxicities with chemotherapy are stable. The bulk of today's visit was spent reviewing CT scans and plan of care. PMH, medications and allergies as below personally reviewed by me today. Any changes documented in appropriate section. ROS: Constitutional: Denies episodes of fever and night sweats. Neuro: See above. HEENT: No recent change in voice, vision or hearing (significant b/l hearing loss--underwent audiogram early December 2017. Study showed a 50% decline in her hearing. Presumably this was from oxaliplatin.). Resp: See above. CVS: Denies exertional chest pain, PND, orthopnea. GI: See above. : No dysuria or gross hematuria. Stress incontinence--stable. Endo: Denies hot flashes. Denies polyuria and polydipsia. Denies heat and cold intolerance. Musculoskeletal: Denies bone, back, joint and muscular pain. Derm: Denies diffuse pruritis. Heme: No unusual bleeding and/or unexplained bruising. Psych: Normal mood. PHYSICAL EXAM: Vitals: Blood pressure 131/57, pulse 89, temperature 36.8 ?C (98.2 ?F), weight 99.6 kg (219 lb 8 oz). Well-appearing and in no acute distress. EYES: Sclerae are anicteric bilaterally. ASSESSMENT/PLAN: (C18.2) Malignant neoplasm of ascending colon (HCC) (primary encounter diagnosis) (C78.7) Liver metastasis (HCC) Assessment: -sam wild type. -Patient had completed several months of capecitabine following resection for an isolated metastasis. She tolerated capecitabine only marginally and was on lower doses for the last couple cycles. She had marked difficulty with diarrhea, dehydration and several hospitalizations/ER visits for toxicity. However, lung nodule had been stable. 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 -First cycle was complicated by port line rupture. 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 Also now documented 50% decline in hearing presumably from oxaliplatin also. -Tolerates FOLFIRI better with the addition of hydration on day 1 and 3. -I personally reviewed the CT scan images with the patient and her . Progressive disease with localized but Liver metastases. -Discussed with her that I would like to obtain a PET scan. If she is PILAR outside the liver then consider referral for opinion on ablation or alternatively S/P RT. Nonetheless I feel reasonable to add Vectibix back to her regimen albeit at low-dose to start out secondary to the severe diarrhea she had in the past from the drug. I discussed the rationale, logistics, potential risks (including ), benefits and alternatives, as well as the personnel involved in the administration of Vectibix. I answered her questions in detail and she verbalized understanding and agreed with the recommended therapy. Please see the electronic consent document for details of doses and schedule. Plan: -Okay for treatment tomorrow. -Continue hydration on day 1 and day 3. -Emend day 1. Continue the addition of dexamethasone 4 mg twice a day on days 2 and 3. -PET at [facility] when able. 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 Plan: -Continue Xarelto. Sujit Vasquez DO Referring Provider: SUJIT VASQUEZ [[id number]] Allergies As of Date: 08/06/2018 Noted Allergy Reaction CORGARD (NADOLOL) 07/21/2015 12 - Shortness of Breath PENN 07/21/2015 12 - Shortness of Breath MORPHINE 07/21/2015 12 - Shortness of Breath Comments: Pt says she can tolerate oxycodone. PENICILLINS 07/21/2015 12 - Shortness of Breath PERFUMES 12/07/2017 12 - Shortness of Breath PRAVACHOL (PRAVASTATIN) 07/21/2015 12 - Shortness of Breath SULFITE 07/21/2015 12 - Shortness of Breath Comments: Sulfites in food. Verified by refrigerator tester. ZOCOR (SIMVASTATIN) 07/21/2015 12 - Shortness of Breath Comments: Pt reports allergy to brand Zocor, tolerates generic. Date Reviewed: 08/06/2018 Reviewed by: Elisa Krishnamurthy (Rail Doweling Machine Operator) JUAN Weber - Fully Assessed Reason for Visit: Established Patient [175] Primary Visit Diagnosis:Malignant neoplasm of ascending colon (HCC) [C18.2] Other Visit Diagnoses:Lung nodules [R91.8] Liver metastasis (HCC) [C78.7] Order(s):IA PET/CT SKULL-THIGH [[id number]] Order #: [id number] FUTURE Follow-up and Disposition History Recorded Prescriptions as of 08/06/2018 Sig: SODIUM CHLORIDE 0.9% FLUSH Access implanted vascular acc* ACETAMINOPHEN 500 MG TABLET Take 1,000 mg by mouth as nee* ALBUTEROL SULFATE HFA 90 MCG/* Inhale 2 Puffs as instructed * ASPIRIN 81 MG TABLET,DELAYED * Take 81 mg by mouth once wilman* AZITHROMYCIN 250 MG TABLET TAKE 2 TABS ON THE FIRST DAY,* CHOLECALCIFEROL (VITAMIN D3) * Take 1 tablet by mouth once d* DEXAMETHASONE 4 MG TABLET Take 1 tablet by mouth twice * DIPHENHYDRAMINE 25 MG TABLET Take 50 mg by mouth as needed. JNJWEVYZFANTPWL-ISRJLCX-NXYZD* Take 10 mL by mouth every 4 h* EPINEPHRINE 0.15 MG/0.15 ML I* by INJECTION(UNSPECIFIED PARE* FUROSEMIDE 40 MG TABLET Take 40 mg by mouth once wilman* GLIMEPIRIDE 2 MG TABLET Take 2 mg by mouth daily with* HYOSCYAMINE 0.125 MG DISINTEG* Dissolve 2 tablets under the * ISOSORBIDE MONONITRATE ER 60 * Take 60 mg by mouth once wilman* LIDOCAINE-PRILOCAINE 2.5 %-2.* Apply 1 application to affect* LISINOPRIL 10 MG TABLET Take 10 mg by mouth once wilman* LOPERAMIDE 2 MG TABLET Take 2 mg by mouth as needed. LORATADINE 10 MG TABLET Take 10 mg by mouth as needed. MAGNESIUM OXIDE 400 MG (241.3* Take 400 mg by mouth twice da* METOPROLOL TARTRATE 50 MG TAB* Take 50 mg by mouth twice wyatt* MOMETASONE 220 MCG (60 DOSES)* Inhale 1 Puff as instructed. MONTELUKAST 10 MG TABLET Take 1 tablet by mouth daily * NITROGLYCERIN 0.3 MG SUBLINGU* Dissolve 0.3 mg under the ton* ONDANSETRON HCL 8 MG TABLET Take 1 tablet by mouth every * POTASSIUM CHLORIDE 20 MEQ ORA* Take 20 mEq by mouth once wyatt* SIMVASTATIN 40 MG TABLET Take 20 mg by mouth daily at * SODIUM CHLORIDE 0.9% FLUSH Access implanted vascular acc* HEPARIN, PORCINE (PF) 100 UNI* Access implanted vascular acc* HEPARIN LOCK FLUSH (PORCINE) * Access implanted vascular acc* OMEPRAZOLE 40 MG CAPSULE,MELODY* Take 1 capsule by mouth once * RIVAROXABAN 15 MG TABLET Take 1 tablet by mouth daily * Patient taking differently: Take by mouth daily with dinn* Problem List As Of Date 08/06/2018 Noted Resolved Malignant neoplasm of ascending colon (HCC) [C1*INVALID FOR* Abnormal mammogram of left breast [R92.8] INVALID FOR* 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] INVALID FOR* Abnormal magnetic resonance imaging of liver [R*INVALID FOR* Liver metastasis (HCC) [C78.7] INVALID FOR* Diabetes (HCC) [E11.9] INVALID FOR* Hearing loss [H91.90] INVALID FOR* Hypertension [I10] INVALID FOR* Hyperlipidemia [E78.5] INVALID FOR* Carotid artery disease (HCC) [I77.9] INVALID FOR* Coronary artery disease [I25.10] INVALID FOR* Asthma [J45.909] INVALID FOR* Sleep apnea [G47.30] INVALID FOR* Arthritis [M19.90] INVALID FOR* Fibromyalgia [M79.7] INVALID FOR* Atrial arrhythmia [I49.8] INVALID FOR* H/O degenerative disc disease [Z87.39] INVALID FOR* Spondylolysis [M43.00] INVALID FOR* Radiculopathy [M54.10] INVALID FOR* Eczema [L30.9] INVALID FOR* Anemia [D64.9] INVALID FOR* 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*INVALID FOR* Colon cancer (HCC) [C18.9] Hypotension due to drugs [I95.2] INVALID FOR* Orthostasis [I95.1] INVALID FOR* Nausea [R11.0] INVALID FOR* Anemia due to antineoplastic chemotherapy [D64.*INVALID FOR* CKD (chronic kidney disease) stage 3, GFR 30-59*INVALID FOR* Dehydration [E86.0] INVALID FOR* Malignant neoplasm metastatic to left lung (HCC*INVALID FOR* Visit Notes: >> Elisa Krishnamurthy (Juan) JUAN Weber Aug 06, 2018 9:56 AM Status: Signed Est pt, discuss recent lab results, tx tomorrow Elisa Weber LPN Encounter Status:Closed by SUJIT VASQUEZ DO on 08/06/18 CEA Collected: 08/06/2018 Status: F Source: [place] 9:41 AM [facility] REPOSITORY TYPE CODE TESTS RESULT OUT OF RANGE REFERENCE UNITS LAB CEA 0.0-2.9 ng/mL High CEA 7.2 Result Comment: Test analyzed by the Nicholas DxI method. Performed By: #### CEA #### [facility] [address] [id number] COMP METABOLIC PANEL Collected: 08/06/2018 Status: F Source: [place] 9:40 AM [facility] REPOSITORY TYPE CODE TESTS RESULT OUT OF REFERENCE UNITS RANGE LAB TP 6.3-8.0 g/dL Protein, Low Total 5.9 LAB ALB 3.9-4.9 g/dL Albumin Low 3.7 LAB CA 8.5-10.2 mg/dL Calcium, Total 9.3 LAB TBIL 0.2-1.3 mg/dL Bilirubin, Total 0.3 LAB ALKP 34-123 U/L Alkaline High Phosphatase 142 LAB AST 13-35 U/L AST 20 LAB GLU 74-99 mg/dL Glucose High 210 LAB BUN 7-21 mg/dL BUN 20 LAB CRET 0.58-0.96 mg/dL Creatinine High 0.99 LAB NA 136-144 mmol/L Sodium 138 LAB K 3.7-5.1 mmol/L Potassium 4.0 LAB CL 97-105 mmol/L Chloride 104 LAB CO2 22-30 mmol/L CO2 23 LAB AGAP mmol/L Anion Gap 11 LAB ALT 7-38 U/L ALT 25 LAB GFRAA eGFR- >60 Amer. LAB GFRNAA . eGFR-All Other Races 55 Result Comment: eGFR (Estimated GFR) Units of measure: mL/min/1.73 meters squared eGFR is derived from the reexpressed MDRD Study equation using the following parameters: serum creatinine, age, gender and race. The creatinine assay has been calibrated to be traceable to IDMS. An eGFR <60 mL/min/1.73m2 for >3 months is consistent with chronic kidney disease. Refer to KDOQI guidelines for clinical interpretation. In patients with unstable renal function, e.g. those with acute kidney injury, the eGFR may not accurately reflect actual GFR. KELLEN ABS GR + CBC Collected: 08/06/2018 Status: F Source: [place] 9:39 AM [facility] REPOSITORY TYPE CODE TESTS RESULT OUT OF REFERENCE UNITS RANGE LAB WWBC 3.70-11.00 k/uL Low [place] WBC 3.33 LAB WRBC 3.90-5.20 m/uL Low [place] RBC 3.39 LAB WHGB 11.5-15.5 g/dL Low [place] Hemoglobin 10.6 LAB WHCT 36.0-46.0 % Low [place] Hematocrit 34.1 LAB WMCV 80.0-100.0 fL [place] High MCV 100.6 LAB WMCH 26.0-34.0 pg [place] MCH 31.3 LAB WMCHC 30.5-36.0 g/dL [place] MCHC 31.1 LAB WRDW 11.5-15.0 % [place] RDW 14.9 LAB WPLT 150-400 k/uL [place] Platelet Cnt 176 LAB WMPV 9.0-12.7 fL [place] MPV 9.7 Result Comment: Test performed at: [facility], [address] [place] [address]. LAB ABGRAN 1.45-7.50 k/uL Absol Gran 1.90 Count PROGRESS Observed: 08/02/2018 Status: COMPLETED Source: [place] 10:47 AM [facility] REPOSITORY HNO ID: [id number] Author: Mignon Rodriguez Service: (none) Author Type: (none) Type: Progress Notes Filed: 08/02/2018 10:47 AM Note Text: Radiology Service Progress Note PATIENT NAME: Quyen Coker DATE OF SERVICE: August 02, 2018 TIME: 10:47 AM PATIENT IDENTITY VERIFICATION COMPLETED USING TWO (2) METHODS: Patient confirmed name verbally and Date of . PATIENT GENDER DATA: Female. status: : No status: NO. PATIENT RELEVANT IMPLANT DATA REVIEWED: Not Applicable CONTRAST INDUCED NEPHROPATHY RISK FACTORS: Patient age > 60 years CREATININE: Creatinine Date Value Ref Range Status 08/02/2018 0.98 (H) 0.58 - 0.96 mg/dL Final 07/23/2018 1.07 (H) 0.58 - 0.96 mg/dL Final 07/09/2018 0.90 0.58 - 0.96 mg/dL Final eGFR-All Other Races Date Value Ref Range Status 08/02/2018 57 . Final Comment: eGFR (Estimated GFR) Units of measure: mL/min/1.73 meters squared eGFR is derived from the reexpressed MDRD Study equation using the following parameters: serum creatinine, age, gender and race. The creatinine assay has been calibrated to be traceable to IDMS. An eGFR <60 mL/min/1.73m2 for >3 months is consistent with chronic kidney disease. Refer to KDOQI guidelines for clinical interpretation. In patients with unstable renal function, e.g. those with acute kidney injury, the eGFR may not accurately reflect actual GFR. eGFR- Date Value Ref Range Status 08/02/2018 >60 Final P.O.C.T. RESULTS: POC done: Yes, See Lab Tab August 02, 2018 RADIOLOGIST NOTIFIED?: No ALLERGIES: Reviewed and unchanged CONTRAST ALLERGY: NO. PERIPHERAL IV ACCESS: power port accessed by hemHaier RADIOLOGY DEPARTMENT: CT; Exam(s) Completed: Chest Abdomen Pelvis SIGNED BY: Mignon Quiñonez Ct August 02, 2018 10:[address] ABD/PEL W IVCON Observed: 08/02/2018 Status: F Source: [place] 10:46 AM [facility] REPOSITORY * * *Final Report* * * DATE OF EXAM: Aug 02 2018 10:46AM [facility] 0530 - CT ABD/PEL W IVCON / PROCEDURE REASON: multiple diagnoses * * * * Physician Interpretation * * * * EXAMINATION: CT ABDOMEN AND PELVIS WITH IV CONTRAST CLINICAL HISTORY: Colon cancer follow-up TECHNIQUE: CT of the abdomen and pelvis was performed using standard technique, scanning from just above the dome of the diaphragm to the symphysis pubis. MQ: CTAP_3 Contrast: Other: 150 ml of Omnipaque 300 Oral: 50 ml of 50ML Omnipaque [address] Radiation dose: Integrated Dose-length product (DLP) for this visit = 1192 mGy*cm. CT Dose Reduction Employed: Automated exposure control(AEC) and iterative recon COMPARISON: 05/13/2018 RESULT: Liver: Prior LEFT hepatectomy. There is an enlarging hypodense lesion in the RIGHT lobe adjacent to the resection site, currently 1.8 x 1.6 cm (8:19), previously 1.5 x 1.0 cm. Just inferior to this is a 2.5 x 2.1 cm hypodense lesion (8:21), in retrospect approximately 0.9 cm. An additional new hypodense lesion is seen more inferiorly, measuring 1.3 x 1.1 cm (8:25). Several smaller lesions are seen superiorly (8:16). Biliary: No bile duct dilation. Spleen: No mass. No splenomegaly. Pancreas: No mass or duct dilation. Adrenals: No mass. Kidneys: No mass, calculus or hydronephrosis. Stable dilated RIGHT extrarenal pelvis. GI tract: No dilation or wall thickening. Small hiatal hernia. Lymph nodes: No abdominal or pelvic lymphadenopathy. Mesentery/Peritoneum: No ascites or mass. Small fat-containing umbilical hernia. Retroperitoneum: No mass. Vasculature: There is calcification of the aorta and iliac arteries, without aneurysm. Pelvis: No mass, ascites or fluid collection. Bones/Soft Tissues: No neoplastic bone disease. Degenerative changes in the spine Lower thorax: A chest CT was performed and will be reported separately. IMPRESSION: INTERVAL CHANGE IN THE APPEARANCE OF THE LIVER ADJACENT TO THE HEPATECTOMY SITE SUGGESTING RECURRENT NEOPLASM. NO METASTATIC DISEASE ELSEWHERE Aerologist: MANUELA Transcribe Date/Time: 2018 11:11A Dictated by : NATANAEL ISSA MD This examination was interpreted and the report reviewed and electronically signed by: NATANAEL ISSA MD on 2018 11:17AM EST [id number] CT CHEST W IVCON Observed: 08/02/2018 Status: F Source: [place] 10:46 AM [facility] REPOSITORY * * *Final Report* * * DATE OF EXAM: Aug 02 2018 10:46AM [facility] 0539 - CT CHEST W IVCON / PROCEDURE REASON: multiple diagnoses * * * * Physician Interpretation * * * * EXAMINATION: CHEST CT WITH CONTRAST CLINICAL HISTORY: Malignant neoplasm of ascending colon (HCC) Liver metastasis (HCC) Technique: Spiral CT acquisition of the chest from the thoracic inlet to the upper abdomen following IV contrast. MQ: [id number]_5 Contrast: 150 mL Omnipaque [address] Dose-Length Product: 1192 mGy*cm CT Dose Reduction Employed: Automated exposure control(AEC) and iterative recon Comparison: CT chest on 05/13/2018 RESULT: Limitations: None. Lines, tubes, and devices: None. Lung parenchyma and pleura: The central lines are patent. There is a stable 5 mm noncalcified triangular nodule in the anterior left upper lobe, series 5 image 29. Also noted is a stable calcified granuloma or nodule in the right lower lobe, series 5 image 66. Other tiny nodules are not clearly identified on the current study. No new nodules seen. The lungs are clear of consolidative opacities. No free fusions or pneumothorax. Thoracic inlet, heart, and mediastinum: Stable left thyroid nodule. No supraclavicular or axillary adenopathy. No new lymphadenopathy in the mediastinum. There is a stable 1.4 cm partially calcified lymph node in the right hilum. The thoracic aorta, central pulmonary arteries and cardiac chambers have been stable, without pericardial effusion/thickening. Atherosclerotic calcifications are again demonstrated in the coronary circulation. Bones and soft tissues: The chest wall soft tissue remains unchanged. Stable nodular density in the left breast. There are degenerative changes in the thoracic spine. Status post median sternotomy. The visualized bones show no destructive osseous lesions. Upper abdomen: Limited study through the upper abdomen demonstrates no interval changes. IMPRESSION: Stable 5 mm noncalcified nodule in the left upper lobe and stable calcified granuloma/nodule in the right lower lobe. No new or enlarging nodules identified. Stable right hilar lymph node. Aerologist: MANUELA Transcribe Date/Time: Aug 05 2018 2:12P Dictated by : PATEL BENNETT MD This examination was interpreted and the report reviewed and electronically signed by: PATEL BENNETT MD on Aug 05 2018 5:07PM EST [id number] BASIC METABOLIC PANL Collected: 08/02/2018 Status: F Source: [place] 9:10 AM [facility] REPOSITORY TYPE CODE TESTS RESULT OUT OF REFERENCE UNITS RANGE LAB GLU 74-99 mg/dL Glucose High 107 LAB BUN 7-21 mg/dL BUN 17 LAB CRET 0.58-0.96 mg/dL High Creatinine 0.98 LAB NA 136-144 mmol/L Sodium 138 LAB K 3.7-5.1 mmol/L Potassium 4.1 LAB CL 97-105 mmol/L Chloride 102 LAB CO2 22-30 mmol/L CO2 26 LAB AGAP mmol/L Anion Gap 10 LAB CA 8.5-10.2 mg/dL Calcium, Total 9.3 LAB GFRAA eGFR- >60 Amer. LAB GFRNAA . eGFR-All Other Races 55 Result Comment: eGFR (Estimated GFR) Units of measure: mL/min/1.73 meters squared eGFR is derived from the reexpressed MDRD Study equation using the following parameters: serum creatinine, age, gender and race. The creatinine assay has been calibrated to be traceable to IDMS. An eGFR <60 mL/min/1.73m2 for >3 months is consistent with chronic kidney disease. Refer to KDOQI guidelines for clinical interpretation. In patients with unstable renal function, e.g. those with acute kidney injury, the eGFR may not accurately reflect actual GFR. EMERGENCY DEPARTMENT Observed: 07/29/2018 Status: F Source: HIMROD SUMMARY 7:36 PM [facility] REPOSITORY [facility] Medical Records Department [address] [place] [id number] Emergency Department Summary 07/29/18 193 MR#: [id number] Acct: [id number] Name: QUYEN COKER Rep #: [id number] : 1940 77 From: Prince Miller MD PCP: Alvarez Mccoy MD Status: REG ER - ER Visit Summary Date of Service: 07/29/18 Chief Complaint: Paresthesia right and left side of face, distal right and left leg and feet History of Present Illness: The patient is a 77 F who presents because of bilateral facial paresthesia, bilateral distal leg paresthesia and feet paresthesia. She states she has had these symptoms since chemotherapy. He is on chemotherapy for stage IV colon cancer. She denies double vision, blurred vision loss of vision. She denies trouble with speech or swallowing. She denies chest pain, palpitations, orthopnea, dyspnea on exertion or PND. She denies shortness of breath, cough hemoptysis or pleuritic chest pain. She does report nausea. She states the nausea is minimal and did not think significant and reason she did not take Zofran prior to arrival. She does report frequency after chemotherapy. She denies dysuria, urgency or hematuria. She denies abdominal pain or bilateral flank pain. She denies symptoms of claudication. Review of systems otherwise negative and please read written note Her past medical history coronary disease, PR, diabetes, hypertension, hypercholesterolemia, breast cancer and stage IV colon cancer. She has history of atrial fibrillation. Physical Examination: Vital signs noted and blood pressure elevated 158/84. She appears pale. Head is atraumatic normocephalic. Pupils are equal round reactive. Extraocular muscles are intact. TMs are pearly white with landmarks noted. Nares patent with no drainage. Posterior pharynx without erythema or exudate. Uvula is midline. There is no dysphonia or dysphasia. Trachea is midline. There is no stridor with auscultation of the neck. Heart is regular without murmur, gallop or rub. S1 and S2 are normal. Lungs are clear to auscultation with good movement of air bilaterally. Abdomen is soft nontender bowel sounds are present normal. There is no asymmetry, swelling, discoloration, leg vein distention, palpable cords or tenderness along the distribution of the deep venous system. DP and PT pulses are palpable but diminished. They are symmetric. Neuro exam is nonfocal. Affect is normal. Test Results: CBC reveals a white count of 3.5 with an H AND H 10.8 and 34.4. BUN and creatinine are 28 and 1.06. The ratio is elevated. This would indicate prerenal azotemia. Emergency Department Course and Treatment: To assess patient's symptoms electro panel was obtained. Since she appears pale a CBC was obtained. Treatment Plan: Discharge to follow-up with oncologist Disposition: Discharged to home with spouse in stable condition Impression: Bilateral paresthesia secondary to chemo therapy This note was generated with Dragon dictation software. It may contain incorrect words, spelling, and punctuation that were not noted in review of the chart prior to signing ED Disposition - Plan for ED Patient: Disposition: Home or Assisted Living Chief Complaint: Numb/Ting Instructions: ED Neuropathy Peripheral Referrals: Alvarez Mccoy MD [Primary Care Provider] - As Needed What to do if you have Problems For any increased pain, shortness of breath, bleeding, nausea or vomiting, chest pain, or any unexpected problems, contact your Primary Care Provider. Call [facility] ([phone]) or report to the closest Emergency Room. Call 911 if necessary. 07/29/181935 <Electronically signed by Prince Miller MD> Date Prince Miller MD Cosigner Signature (If Indicated): Date CC: Alvarez Mccoy MD CBC W/DIFF, AUTOMATED Collected: 07/29/2018 Status: F Source: KELLEN 6:37 PM [facility] REPOSITORY TYPE CODE TESTS RESULT OUT OF RANGE REFERENCE UNITS LAB L100.1000 4.4-11.0 K/mm3 Low WBC 3.5 LAB L100.1200 4.2-5.4 M/mm3 Low RBC 3.53 LAB L100.1300 12.0-15.0 g/dl Low HGB 10.8 LAB L100.1400 37-47 % Low HCT 34.4 LAB L100.1500 81-99 fL Normal MCV 97.5 LAB L100.1600 27.0-32.0 pg Normal MCH 30.6 LAB L100.1700 32-36 g/gl Low MCHC 31.4 LAB L100.1810 11.6-14.6 % High RDW CV 14.8 LAB L100.1820 35.1-43.9 fl High RDW SD 52.7 LAB L100.1900 150-450 K/mm3 Normal PLT 177 LAB L100.2000 6.2-12.0 fl Normal MPV 10.0 LAB L100.2100 47-70 % Normal NEUT% 57.7 LAB L100.2200 19-41 % Normal LY% 34.6 LAB L100.2300 0-10 % Normal MONO% 7.1 LAB L100.2400 0-5 % Normal EO% 0.3 LAB L100.2500 0-1 % Normal BASO% 0.0 LAB L100.2550 0.0-0.9 % Normal IM GRAN % 0.300 Result Comment: IG% - Immature Granulocytes (promyelocytes, myelocytes and metamyelocytes) > 1% indicates that a LEFT SHIFT is Present. LAB L100.2620 2.0-7.7 X10 3/uL Normal Absolute Neut 2.0 LAB L100.2720 0.83-4.51 X10 3/ul Normal Absolute Lymph 1.22 Performed By: #### L100.0100 #### [facility] [address] [place], [address] BASIC METABOLIC Collected: 07/29/2018 Status: F Source: HIMROD PROFILE (BMP) 6:37 PM [facility] REPOSITORY TYPE CODE TESTS RESULT OUT OF RANGE REFERENCE UNITS LAB L501.0100 74-106 mg/dL Normal GLU 103 Result Comment: Fasting Glucose result from 100 to 125 mg/dL suggests IMPAIRED HOMEOSTASIS per A.D.A. criteria. Please note revised GLUCOSE reference range effective 2017. LAB L501.1000 7-18 mg/dL High BUN 28 LAB L501.1100 0.55-1.02 mg/dL High CREAT,SERUM 1.06 Result Comment: The validity of the calculated GFR AND GFRAA in patients over 70 years has not been determined. Clinical correlation is essential. LAB L501.1110 >60 mL/min Low EST GFR 54 Result Comment: Non- GFR Calc LAB L501.1115 >60 mL/min Normal EST GFR - AA 65 Result Comment: GFR Calc LAB L501.1255 ml/min Normal Estimated CRCL 37.93 LAB L501.1300 10-20 RATIO High BUN/CRE 26.4 LAB L501.2200 8.5-10 mg/dL Low .1 CA 8.4 LAB L501.5300 136-14 mmol/L Normal 5 NA 138 LAB L501.5600 3.5-5. mmol/L Normal 1 K 3.8 LAB L501.5900 98-107 mmol/L Normal CL 103 LAB L501.6100 21.0-3 mmol/L Normal 2.0 CO2 28.0 LAB L501.6200 5-15 Normal GAP 7 Performed By: #### L500.2500 #### [facility] [address] [place], [address] CHEST PA AND LATERAL Observed: 07/29/2018 Status: F Source: HIMROD 5:55 PM [facility] REPOSITORY [facility] [address] [place] [address] Chest PA and Lateral MR#: [id number] Acct: [id number] Name: QUYEN OCKER Rep #: [id number] : 1940 F 77 From: Reggie Hernandez MD PCP: Alvarez Mccoy MD Status: REG ER Study: Chest PA and Lateral Date of Exam: 07/29/18 Exam# [id number] Ordering Dr: Prince Miller MD STUDY: X-RAY CHEST REASON FOR EXAM: Female, 77 years old. Nausea/vomiting TECHNIQUE: PA and lateral views of the chest. COMPARISON: 12/24/2017 FINDINGS: Stable appearance of a right subclavian port, tip in the distal SVC. There are interstitial fibrotic changes of the lungs. There is no demonstrated pleural abnormality. Normal size heart. Normal mediastinum and vivek. Normal visualized pulmonary arteries. There is atherosclerotic calcification of the aortic arch with tortuosity. There are diffuse degenerative changes of the visualized thoracic spine. Normal visualized ribs, clavicles, and shoulders. There is no demonstrated abnormality of the visualized soft tissue structures of the upper abdomen. RAD/Chest PA and Lateral IMPRESSION: Degenerative changes, as described above. No demonstrated acute cardiopulmonary process. Electronically Signed: Kain Hernandez MD at 18:58 EST , Service support , CC: Alvarez Mccoy MD; Prince Miller MD Aerologist: Signed PROGRESS Observed: 07/23/2018 Status: COMPLETED Source: OLANTA 10:23 AM [facility] REPOSITORY HNO ID: [id number] Author: Sujit Vasquez Service: (none) Author Type: Physician Type: Progress Notes Filed: 07/23/2018 10:41 AM Note Text: Diagnosis: 1) Metastatic colon cancer. 2) DCIS. 3) IMV thrombus. 4) DVT. HPI: The patient is a 77 yo female with a PMH significant for hyperlipidemia, HTN, CAD (PR, CABG x2 2011; stent x1 2013), PVD (carotid artery stenosis s/p CEA left side 2012), sleep apnea (uses CPAP), arthritis (chronic lower back and from lower thoracic area to the neck pain). She developed rectal bleeding in March and underwent evaluation with EGD. Evidently that study was normal. Next underwent colonoscopy and was observed to have a tumor in the cecum. Had normal colonoscopy about 2 years prior. Underwent right hemicolectomy 07/28/2015. 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 Through muscularis propria into subserosal adipose tissue, but not extending to the serosal surface. All margins negative. No lymphovascular invasion. No perineural invasion. No tumor deposits. None of 14 nodes positive. No evidence MSI by IHC. Had screening mammogram 08/2015. Abnormality left breast. Dx mammo and US 09/06/2015. 6.5 x 7.9 mm nodular density with focal calcifications in fthe slightly upper lateral portion of the left breast. Underwent stereotactic core biopsy 09/15/2015. DCIS, cribriform and solid, grade 2, single cell necrosis; no invasive carcinoma. MRI of the breast 10/11/2015: Longitudinally oriented area of mild enhancement in the central left breast thought to be due to postbiopsy hemorrhage/inflammation. Tumor along this entire length is thought less likely but cannot be excluded. MRI of the abdomen and pelvis 10/13/2015: Liver: There is a large, heterogeneously enhancing mass within the entire lateral segment of the left hepatic lobe and extending into the medial segment as well. This mass measures approximately 8.2 x 5.8 x 6.3 cm. This is most consistent with neoplasm, perhaps metastatic given the patient's history of colonic carcinoma. No additional hepatic lesions are seen. There is patchy hepatic fatty change throughout the right hepatic lobe. Partial, nonocclusive thrombus within the superior mesenteric vein just cephalad to its 1st branch. Liver biopsy--consistent with colorectal primary. Patient received the fourth cycle chemotherapy on 12/22/2015. She developed profuse diarrhea and presented to the emergency department for dehydration and shortness of breath. She was found to be an RVR atrial fibrillation with significant hypomagnesemia. She was admitted and started on IV hydration and magnesium replacement as well as medical management of atrial fibrillation. The diarrhea however continued for several more days during which she was given supportive care. Following that she developed an episode of ileus which extend her hospital stay. She was eventually discharged to rehabilitation. This morning she underwent an ultrasound of both lower extremities. She was found to have an acute DVT in the right common femoral vein. Treated with apixaban. Underwent left-sided lumpectomy for DCIS. Specimen - partial breast Procedure - excision with wire-guided localization Lymph node sampling ? no lymph nodes present Specimen integrity - single intact specimen Specimen size ? 15 x 9 x 4 cm Specimen laterality ? left Tumor site ? not specified Size (extent) of DCIS ? 0.3 cm in greatest dimension. See comment. 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 Architectural pattern - cribriform Nuclear grade - grade 2 (intermediate) Necrosis ? not identified Margins ? margin uninvolved by ductal carcinoma in situ. The tumor is 2 cm away from the closest anterior and posterior margins Treatment effect - no known presurgical therapy. Lymph nodes ? not submitted Distant metastasis ? not replicable Additional Pathologic Findings ? fibrocystic changes. - Focal changes consistent with previous biopsy site. Previous therapy: 1) FOLFOX x1; FOLFOX with Vectibix x3. 2) Underwent left hepatectomy 04/28/2016. Final pathology reviewed. Positive margin was cauterized during surgery. 3) Xeloda after liver directed therapy. Started cycle #3 11/27/2016 through 02/2017. 4) Infusional 5-fluorouracil with oxaliplatin on diagnosis lung metastasis. Current therapy: 1) FOLFIRI. Presents for ongoing oncologic management. Interim history: Had a month off prior to last cycle. Went well overall, but had typical symptoms of headache and lightheadedness the day of administration and chemotherapy. She gets fatigued. No diarrhea but can't have looser stools for several days. Mouth sores days 3-5. Uses salt and soda rinse. Avoids salty foods. Nausea off and on the whole 2 weeks. PMH, medications and allergies as below personally reviewed by me today. Any changes documented in appropriate section. ROS: Constitutional: Denies episodes of fever and night sweats. Neuro: See above. HEENT: No recent change in voice, vision or hearing (significant b/l hearing loss--underwent audiogram early December 2017. Study showed a 50% decline in her hearing. Presumably this was from oxaliplatin.). Resp: See above. CVS: Denies exertional chest pain, PND, orthopnea. GI: See above. : No dysuria or gross hematuria. Stress incontinence--stable. Endo: Denies hot flashes. Denies polyuria and polydipsia. Denies heat and cold intolerance. Musculoskeletal: Denies bone, back, joint and muscular pain. Derm: Denies diffuse pruritis. Heme: No unusual bleeding and/or unexplained bruising. Psych: Normal mood. PHYSICAL EXAM: Vitals: Blood pressure 124/67, pulse 67, temperature 36.4 ?C (97.5 ?F), temperature source Oral, weight 98.9 kg (218 lb), SpO2 97 %. Well-appearing and in no acute distress. EYES: Sclerae are anicteric bilaterally. NECK: Supple. No enlargement of thyroid. LYMPHATIC: There is no palpable cervical, supraclavicular adenopathy. RESPIRATORY: Inspiratory breath sounds are clear with no rhonchi or wheeze. CARDIOVASCULAR: Rhythm is irregular. ABDOMEN: The abdomen is nondistended and non-tender. No organomegaly. Extremities: Free of edema. SKIN: No jaundice or rash. No petechiae. NEUROLOGIC: foil cutter II-XII are grossly intact. No focal motor weakness. ASSESSMENT/PLAN: (C18.2) Malignant neoplasm of ascending colon (HCC) (primary encounter diagnosis) (C78.7) Liver metastasis (HCC) Assessment: -sam wild type. -Patient had completed several months of capecitabine following resection for an isolated metastasis. She tolerated capecitabine only marginally and was on lower doses for the last couple cycles. She had marked difficulty with diarrhea, dehydration and several hospitalizations/ER visits for toxicity. However, lung nodule had been stable. 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 -First cycle was complicated by port line rupture. 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 Also now documented 50% decline in hearing presumably from oxaliplatin also. -Tolerating FOLFIRI better with the addition of hydration on day 1 and 3. -If or when has progressive disease then consider adding Vectibix. Previously we held off on this treatment due to the potential for diarrhea and how marginally she's tolerated chemotherapy. Plan: -Okay for treatment tomorrow. -Continue hydration on day 1 and day 3. -Emend day 1. Continue the addition of dexamethasone 4 mg twice a day on days 2 and 3. -CTs 08/02. 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 Plan: -Continue Xarelto. uSjit Vasquez DO CNOVSP Observed: 07/23/2018 Status: COMPLETED Source: OL[place]A 10:10 AM [facility] REPOSITORY Visit (SP) Office ([place]) QUYEN COKER ([id number]) 1940 F [facility] Date Time Provider Department 07/23/18 10:10 AM SUJIT VASQUEZ During your visit today, we recorded the following information about you: Temperature Pulse Blood pressure Weight 97.5 degrees 67/minute 124/67 98.9 kg Sujit Vasquez DO 07/23/2018 10:41 AM Signed Diagnosis: 1) Metastatic colon cancer. 2) DCIS. 3) IMV thrombus. 4) DVT. HPI: The patient is a 77 yo female with a PMH significant for hyperlipidemia, HTN, CAD (PR, CABG x2 2011; stent x1 2013), PVD (carotid artery stenosis s/p CEA left side 2012), sleep apnea (uses CPAP), arthritis (chronic lower back and from lower thoracic area to the neck pain). She developed rectal bleeding in March and underwent evaluation with EGD. Evidently that study was normal. Next underwent colonoscopy and was observed to have a tumor in the cecum. Had normal colonoscopy about 2 years prior. Underwent right hemicolectomy 07/28/2015. 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 Through muscularis propria into subserosal adipose tissue, but not extending to the serosal surface. All margins negative. No lymphovascular invasion. No perineural invasion. No tumor deposits. None of 14 nodes positive. No evidence MSI by IHC. Had screening mammogram 08/2015. Abnormality left breast. Dx mammo and US 09/06/2015. 6.5 x 7.9 mm nodular density with focal calcifications in fthe slightly upper lateral portion of the left breast. Underwent stereotactic core biopsy 09/15/2015. DCIS, cribriform and solid, grade 2, single cell necrosis; no invasive carcinoma. MRI of the breast 10/11/2015: Longitudinally oriented area of mild enhancement in the central left breast thought to be due to postbiopsy hemorrhage/inflammation. Tumor along this entire length is thought less likely but cannot be excluded. MRI of the abdomen and pelvis 10/13/2015: Liver: There is a large, heterogeneously enhancing mass within the entire lateral segment of the left hepatic lobe and extending into the medial segment as well. This mass measures approximately 8.2 x 5.8 x 6.3 cm. This is most consistent with neoplasm, perhaps metastatic given the patient's history of colonic carcinoma. No additional hepatic lesions are seen. There is patchy hepatic fatty change throughout the right hepatic lobe. Partial, nonocclusive thrombus within the superior mesenteric vein just cephalad to its 1st branch. Liver biopsy--consistent with colorectal primary. Patient received the fourth cycle chemotherapy on 12/22/2015. She developed profuse diarrhea and presented to the emergency department for dehydration and shortness of breath. She was found to be an RVR atrial fibrillation with significant hypomagnesemia. She was admitted and started on IV hydration and magnesium replacement as well as medical management of atrial fibrillation. The diarrhea however continued for several more days during which she was given supportive care. Following that she developed an episode of ileus which extend her hospital stay. She was eventually discharged to rehabilitation. This morning she underwent an ultrasound of both lower extremities. She was found to have an acute DVT in the right common femoral vein. Treated with apixaban. Underwent left-sided lumpectomy for DCIS. Specimen - partial breast Procedure - excision with wire-guided localization Lymph node sampling ? no lymph nodes present Specimen integrity - single intact specimen Specimen size ? 15 x 9 x 4 cm Specimen laterality ? left Tumor site ? not specified Size (extent) of DCIS ? 0.3 cm in greatest dimension. See comment. 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 Architectural pattern - cribriform Nuclear grade - grade 2 (intermediate) Necrosis ? not identified Margins ? margin uninvolved by ductal carcinoma in situ. The tumor is 2 cm away from the closest anterior and posterior margins Treatment effect - no known presurgical therapy. Lymph nodes ? not submitted Distant metastasis ? not replicable Additional Pathologic Findings ? fibrocystic changes. - Focal changes consistent with previous biopsy site. Previous therapy: 1) FOLFOX x1; FOLFOX with Vectibix x3. 2) Underwent left hepatectomy 04/28/2016. Final pathology reviewed. Positive margin was cauterized during surgery. 3) Xeloda after liver directed therapy. Started cycle #3 11/27/2016 through 02/2017. 4) Infusional 5-fluorouracil with oxaliplatin on diagnosis lung metastasis. Current therapy: 1) FOLFIRI. Presents for ongoing oncologic management. Interim history: Had a month off prior to last cycle. Went well overall, but had typical symptoms of headache and lightheadedness the day of administration and chemotherapy. She gets fatigued. No diarrhea but can't have looser stools for several days. Mouth sores days 3-5. Uses salt and soda rinse. Avoids salty foods. Nausea off and on the whole 2 weeks. PMH, medications and allergies as below personally reviewed by me today. Any changes documented in appropriate section. ROS: Constitutional: Denies episodes of fever and night sweats. Neuro: See above. HEENT: No recent change in voice, vision or hearing (significant b/l hearing loss--underwent audiogram early December 2017. Study showed a 50% decline in her hearing. Presumably this was from oxaliplatin.). Resp: See above. CVS: Denies exertional chest pain, PND, orthopnea. GI: See above. : No dysuria or gross hematuria. Stress incontinence--stable. Endo: Denies hot flashes. Denies polyuria and polydipsia. Denies heat and cold intolerance. Musculoskeletal: Denies bone, back, joint and muscular pain. Derm: Denies diffuse pruritis. Heme: No unusual bleeding and/or unexplained bruising. Psych: Normal mood. PHYSICAL EXAM: Vitals: Blood pressure 124/67, pulse 67, temperature 36.4 ?C (97.5 ?F), temperature source Oral, weight 98.9 kg (218 lb), SpO2 97 %. Well-appearing and in no acute distress. EYES: Sclerae are anicteric bilaterally. NECK: Supple. No enlargement of thyroid. LYMPHATIC: There is no palpable cervical, supraclavicular adenopathy. RESPIRATORY: Inspiratory breath sounds are clear with no rhonchi or wheeze. CARDIOVASCULAR: Rhythm is irregular. ABDOMEN: The abdomen is nondistended and non-tender. No organomegaly. Extremities: Free of edema. SKIN: No jaundice or rash. No petechiae. NEUROLOGIC: foil cutter II-XII are grossly intact. No focal motor weakness. ASSESSMENT/PLAN: (C18.2) Malignant neoplasm of ascending colon (HCC) (primary encounter diagnosis) (C78.7) Liver metastasis (HCC) Assessment: -sam wild type. -Patient had completed several months of capecitabine following resection for an isolated metastasis. She tolerated capecitabine only marginally and was on lower doses for the last couple cycles. She had marked difficulty with diarrhea, dehydration and several hospitalizations/ER visits for toxicity. However, lung nodule had been stable. 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 -First cycle was complicated by port line rupture. 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 Also now documented 50% decline in hearing presumably from oxaliplatin also. -Tolerating FOLFIRI better with the addition of hydration on day 1 and 3. -If or when has progressive disease then consider adding Vectibix. Previously we held off on this treatment due to the potential for diarrhea and how marginally she's tolerated chemotherapy. Plan: -Okay for treatment tomorrow. -Continue hydration on day 1 and day 3. -Emend day 1. Continue the addition of dexamethasone 4 mg twice a day on days 2 and 3. -CTs 08/02. 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 Plan: -Continue Xarelto. Sujit Vasquez DO Referring Provider: SUJIT VASQUEZ [[id number]] Allergies As of Date: 07/23/2018 Noted Allergy Reaction CORGARD (NADOLOL) 07/21/2015 12 - Shortness of Breath PENN 07/21/2015 12 - Shortness of Breath MORPHINE 07/21/2015 12 - Shortness of Breath Comments: Pt says she can tolerate oxycodone. PENICILLINS 07/21/2015 12 - Shortness of Breath PERFUMES 12/07/2017 12 - Shortness of Breath PRAVACHOL (PRAVASTATIN) 07/21/2015 12 - Shortness of Breath SULFITE 07/21/2015 12 - Shortness of Breath Comments: Sulfites in food. Verified by refrigerator tester. ZOCOR (SIMVASTATIN) 07/21/2015 12 - Shortness of Breath Comments: Pt reports allergy to brand Zocor, tolerates generic. 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) [C78.02] Follow-up and Disposition History Recorded Prescriptions as of 07/23/2018 Sig: AZITHROMYCIN 250 MG TABLET TAKE 2 TABS ON THE FIRST DAY,* DEXAMETHASONE 4 MG TABLET Take 1 tablet by mouth twice * ONDANSETRON HCL 8 MG TABLET Take 1 tablet by mouth every * FUROSEMIDE 40 MG TABLET Take 40 mg by mouth once wilman* GLIMEPIRIDE 2 MG TABLET Take 2 mg by mouth daily with* OMEPRAZOLE 40 MG CAPSULE,MELODY* Take 1 capsule by mouth once * HYOSCYAMINE 0.125 MG DISINTEG* Dissolve 2 tablets under the * [id number]* Take 10 mL by mouth every 4 h* POTASSIUM CHLORIDE 20 MEQ ORA* Take 20 mEq by mouth once wyatt* RIVAROXABAN 15 MG TABLET Take 1 tablet by mouth daily * Patient taking differently: Take by mouth daily with dinn* LIDOCAINE-PRILOCAINE 2.5 %-2.* Apply 1 application to affect* SODIUM CHLORIDE 0.9% FLUSH Access implanted vascular acc* HEPARIN, PORCINE (PF) 100 UNI* Access implanted vascular acc* LOPERAMIDE 2 MG TABLET Take 2 mg by mouth as needed. SODIUM CHLORIDE 0.9% FLUSH Access implanted vascular acc* HEPARIN LOCK FLUSH (PORCINE) * Access implanted vascular acc* MONTELUKAST 10 MG TABLET Take 1 tablet by mouth daily * MAGNESIUM OXIDE 400 MG (241.3* Take 400 mg by mouth twice da* ACETAMINOPHEN 500 MG TABLET Take 1,000 mg by mouth as nee* DIPHENHYDRAMINE 25 MG TABLET Take 50 mg by mouth as needed. ISOSORBIDE MONONITRATE ER 60 * Take 60 mg by mouth once wilman* ASPIRIN 81 MG TABLET,DELAYED * Take 81 mg by mouth once wil[place]* METOPROLOL TARTRATE 50 MG TAB* Take 50 mg by mouth twice wyatt* LISINOPRIL 10 MG TABLET Take 10 mg by mouth once [place]* MOMETASONE 220 MCG (60 DOSES)* Inhale 1 Puff as instructed. CHOLECALCIFEROL (VITAMIN D3) * Take 1 tablet by mouth once d* SIMVASTATIN 40 MG TABLET Take 20 mg by mouth daily at * NITROGLYCERIN 0.3 MG SUBLINGU* Dissolve 0.3 mg under the ton* ALBUTEROL SULFATE HFA 90 MCG/* Inhale 2 Puffs as instructed * EPINEPHRINE 0.15 MG/0.15 ML I* by INJECTION(UNSPECIFIED PARE* LORATADINE 10 MG TABLET Take 10 mg by mouth as needed. Problem List As Of Date 07/23/2018 Noted Resolved Malignant neoplasm of ascending colon (HCC) [C1*INVALID FOR* Abnormal mammogram of left breast [R92.8] INVALID FOR* 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] INVALID FOR* Abnormal magnetic resonance imaging of liver [R*INVALID FOR* Liver metastasis (HCC) [C78.7] INVALID FOR* Diabetes (HCC) [E11.9] INVALID FOR* Hearing loss [H91.90] INVALID FOR* Hypertension [I10] INVALID FOR* Hyperlipidemia [E78.5] INVALID FOR* Carotid artery disease (HCC) [I77.9] INVALID FOR* Coronary artery disease [I25.10] INVALID FOR* Asthma [J45.909] INVALID FOR* Sleep apnea [G47.30] INVALID FOR* Arthritis [M19.90] INVALID FOR* Fibromyalgia [M79.7] INVALID FOR* Atrial arrhythmia [I49.8] INVALID FOR* H/O degenerative disc disease [Z87.39] INVALID FOR* Spondylolysis [M43.00] INVALID FOR* Radiculopathy [M54.10] INVALID FOR* Eczema [L30.9] INVALID FOR* Anemia [D64.9] INVALID FOR* 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*INVALID FOR* Colon cancer (HCC) [C18.9] Hypotension due to drugs [I95.2] INVALID FOR* Orthostasis [I95.1] INVALID FOR* Nausea [R11.0] INVALID FOR* Anemia due to antineoplastic chemotherapy [D64.*INVALID FOR* CKD (chronic kidney disease) stage 3, GFR 30-59*INVALID FOR* Dehydration [E86.0] INVALID FOR* Malignant neoplasm metastatic to left lung (HCC*INVALID FOR* Encounter Status:Closed by SUJIT VASQUEZ DO on 07/23/18 [place] ABS GR + CBC Collected: 07/23/2018 Status: F Source: [place] 9:50 AM [facility] REPOSITORY TYPE CODE TESTS RESULT OUT OF REFERENCE UNITS RANGE LAB WWBC 3.70-11.00 k/uL [place] WBC 4.18 LAB WRBC 3.90-5.20 m/uL Low [place] RBC 3.39 LAB WHGB 11.5-15.5 g/dL Low [place] Hemoglobin 10.9 LAB WHCT 36.0-46.0 % Low [place] Hematocrit 34.3 LAB WMCV 80.0-100.0 fL [place] High MCV 101.2 LAB WMCH 26.0-34.0 pg [place] MCH 32.2 LAB WMCHC 30.5-36.0 g/dL [place] MCHC 31.8 LAB WRDW 11.5-15.0 % [place] RDW 14.8 LAB WPLT 150-400 k/uL [place] Platelet Cnt 193 LAB WMPV 9.0-12.7 fL [place] MPV 9.7 Result Comment: Test performed at: [facility] [place], [address] [place] [address]. LAB ABGRAN 1.45-7.50 k/uL Absol Gran 2.70 Count COMP METABOLIC PANEL Collected: 07/23/2018 Status: F Source: [place] 9:50 AM [facility] REPOSITORY TYPE CODE TESTS RESULT OUT OF REFERENCE UNITS RANGE LAB TP 6.3-8.0 g/dL Protein, Low Total 5.9 LAB ALB 3.9-4.9 g/dL Albumin Low 3.6 LAB CA 8.5-10.2 mg/dL Calcium, Total 9.3 LAB TBIL 0.2-1.3 mg/dL Bilirubin, Total 0.2 LAB ALKP 34-123 U/L Alkaline High Phosphatase 153 LAB AST 13-35 U/L AST 23 LAB GLU 74-99 mg/dL Glucose High 228 LAB BUN 7-21 mg/dL BUN High 22 LAB CRET 0.58-0.96 mg/dL Creatinine High 1.07 LAB NA 136-144 mmol/L Sodium 138 LAB K 3.7-5.1 mmol/L Potassium 4.1 LAB CL 97-105 mmol/L Chloride 102 LAB CO2 22-30 mmol/L CO2 25 LAB AGAP mmol/L Anion Gap 11 LAB ALT 7-38 U/L ALT 22 LAB GFRAA eGFR- >60 Amer. LAB GFRNAA . eGFR-All Other Races 50 Result Comment: eGFR (Estimated GFR) Units of measure: mL/min/1.73 meters squared eGFR is derived from the reexpressed MDRD Study equation using the following parameters: serum creatinine, age, gender and race. The creatinine assay has been calibrated to be traceable to IDMS. An eGFR <60 mL/min/1.73m2 for >3 months is consistent with chronic kidney disease. Refer to KDOQI guidelines for clinical interpretation. In patients with unstable renal function, e.g. those with acute kidney injury, the eGFR may not accurately reflect actual GFR. CEA Collected: 07/23/2018 Status: F Source: [place] 9:50 AM [facility] REPOSITORY TYPE CODE TESTS RESULT OUT OF RANGE REFERENCE UNITS LAB CEA 0.0-2.9 ng/mL High CEA 6.8 Result Comment: Test analyzed by the [place] DxI method. Performed By: #### CEA #### [facility] [address] [place], [place] [address] PROGRESS Observed: 07/09/2018 Status: COMPLETED Source: [place] 11:42 AM [facility] REPOSITORY HNO ID: [id number] Author: Sujit Vasquez Service: (none) Author Type: Physician Type: Progress Notes Filed: 07/09/2018 12:27 PM Note Text: Diagnosis: 1) Metastatic colon cancer. 2) DCIS. 3) IMV thrombus. 4) DVT. HPI: The patient is a 77 yo female with a PMH significant for hyperlipidemia, HTN, CAD (PR, CABG x2 2011; stent x1 2013), PVD (carotid artery stenosis s/p CEA left side 2012), sleep apnea (uses CPAP), arthritis (chronic lower back and from lower thoracic area to the neck pain). She developed rectal bleeding in March and underwent evaluation with EGD. Evidently that study was normal. Next underwent colonoscopy and was observed to have a tumor in the cecum. Had normal colonoscopy about 2 years prior. Underwent right hemicolectomy 07/28/2015. 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 Through muscularis propria into subserosal adipose tissue, but not extending to the serosal surface. All margins negative. No lymphovascular invasion. No perineural invasion. No tumor deposits. None of 14 nodes positive. No evidence MSI by IHC. Had screening mammogram 08/2015. Abnormality left breast. Dx mammo and US 09/06/2015. 6.5 x 7.9 mm nodular density with focal calcifications in fthe slightly upper lateral portion of the left breast. Underwent stereotactic core biopsy 09/15/2015. DCIS, cribriform and solid, grade 2, single cell necrosis; no invasive carcinoma. MRI of the breast 10/11/2015: Longitudinally oriented area of mild enhancement in the central left breast thought to be due to postbiopsy hemorrhage/inflammation. Tumor along this entire length is thought less likely but cannot be excluded. MRI of the abdomen and pelvis 10/13/2015: Liver: There is a large, heterogeneously enhancing mass within the entire lateral segment of the left hepatic lobe and extending into the medial segment as well. This mass measures approximately 8.2 x 5.8 x 6.3 cm. This is most consistent with neoplasm, perhaps metastatic given the patient's history of colonic carcinoma. No additional hepatic lesions are seen. There is patchy hepatic fatty change throughout the right hepatic lobe. Partial, nonocclusive thrombus within the superior mesenteric vein just cephalad to its 1st branch. Liver biopsy--consistent with colorectal primary. Patient received the fourth cycle chemotherapy on 12/22/2015. She developed profuse diarrhea and presented to the emergency department for dehydration and shortness of breath. She was found to be an RVR atrial fibrillation with significant hypomagnesemia. She was admitted and started on IV hydration and magnesium replacement as well as medical management of atrial fibrillation. The diarrhea however continued for several more days during which she was given supportive care. Following that she developed an episode of ileus which extend her hospital stay. She was eventually discharged to rehabilitation. This morning she underwent an ultrasound of both lower extremities. She was found to have an acute DVT in the right common femoral vein. Treated with apixaban. Underwent left-sided lumpectomy for DCIS. Specimen - partial breast Procedure - excision with wire-guided localization Lymph node sampling ? no lymph nodes present Specimen integrity - single intact specimen Specimen size ? 15 x 9 x 4 cm Specimen laterality ? left Tumor site ? not specified Size (extent) of DCIS ? 0.3 cm in greatest dimension. See comment. 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 Architectural pattern - cribriform Nuclear grade - grade 2 (intermediate) Necrosis ? not identified Margins ? margin uninvolved by ductal carcinoma in situ. The tumor is 2 cm away from the closest anterior and posterior margins Treatment effect - no known presurgical therapy. Lymph nodes ? not submitted Distant metastasis ? not replicable Additional Pathologic Findings ? fibrocystic changes. - Focal changes consistent with previous biopsy site. Previous therapy: 1) FOLFOX x1; FOLFOX with Vectibix x3. 2) Underwent left hepatectomy 04/28/2016. Final pathology reviewed. Positive margin was cauterized during surgery. 3) Xeloda after liver directed therapy. Started cycle #3 11/27/2016 through 02/2017. 4) Infusional 5-fluorouracil with oxaliplatin on diagnosis lung metastasis. Current therapy: 1) FOLFIRI. Presents for ongoing oncologic management. Interim history: She's been off treatment for about a month. She wanted to take a break due to accumulation of side effects including sensation of head pressure and lightheadedness that occurs the evening of chemotherapy administration and again on day 3 and 4. Also she was having more progressive malaise and fatigue. Occasional diarrhea that was never a predominant symptom. No mouth sores. She's feeling much better. She would like to resume treatment. No complaints today. PMH, medications and allergies as below personally reviewed by me today. Any changes documented in appropriate section. ROS: Constitutional: Denies episodes of fever and night sweats. Neuro: See above. HEENT: No recent change in voice, vision or hearing (significant b/l hearing loss--underwent audiogram early December 2017. Study showed a 50% decline in her hearing. Presumably this is from oxaliplatin.). Resp: See above. CVS: Denies exertional chest pain, PND, orthopnea. GI: See above. : No dysuria or gross hematuria. Stress incontinence--stable. Endo: Denies hot flashes. Denies polyuria and polydipsia. Denies heat and cold intolerance. Musculoskeletal: Denies bone, back, joint and muscular pain. Derm: Denies diffuse pruritis. Heme: No unusual bleeding and/or unexplained bruising. Psych: Normal mood. PHYSICAL EXAM: Vitals: Blood pressure 118/75, pulse 70, temperature 37.1 ?C (98.7 ?F), temperature source Oral, weight 99.1 kg (218 lb 8 oz). Well-appearing and in no acute distress. EYES: Sclerae are anicteric bilaterally. NECK: Supple. No enlargement of thyroid. LYMPHATIC: There is no palpable cervical, supraclavicular adenopathy. RESPIRATORY: Inspiratory breath sounds are clear with no rhonchi or wheeze. CARDIOVASCULAR: Rhythm is irregular. ABDOMEN: The abdomen is nondistended and non-tender. No organomegaly. Extremities: Free of edema. SKIN: No jaundice or rash. No petechiae. NEUROLOGIC: foil cutter II-XII are grossly intact. No focal motor weakness. ASSESSMENT/PLAN: (C18.2) Malignant neoplasm of ascending colon (HCC) (primary encounter diagnosis) (C78.7) Liver metastasis (HCC) Assessment: -sam wild type. -Patient had completed several months of capecitabine following resection for an isolated metastasis. She tolerated capecitabine only marginally and was on lower doses for the last couple cycles. She had marked difficulty with diarrhea, dehydration and several hospitalizations/ER visits for toxicity. However, lung nodule had been stable. 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 -First cycle was complicated by port line rupture. 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 Also now documented 50% decline in hearing presumably from oxaliplatin also. -Tolerating FOLFIRI better with the addition of hydration on day 1 and 3. -Discussed obtaining CTs in July. If or when has progressive disease then consider adding Vectibix. Previously we held off on this treatment due to the potential for diarrhea and how marginally she's tolerated chemotherapy. Plan: -Okay for treatment tomorrow. -Continue hydration on day 1 and day 3. -Emend day 1. Continue the addition of dexamethasone 4 mg twice a day on days 2 and 3. -CTs 08/02. 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 Plan: -Continue Xarelto. Sujit Vasquez, DO [place] ABS GR + CBC Collected: 07/09/2018 Status: F Source: [place] 11:37 AM [facility] REPOSITORY TYPE CODE TESTS RESULT OUT OF REFERENCE UNITS RANGE LAB WWBC 3.70-11.00 k/uL [place] WBC 6.44 LAB WRBC 3.90-5.20 m/uL Low [place] RBC 3.51 LAB WHGB 11.5-15.5 g/dL Low [place] Hemoglobin 11.3 LAB WHCT 36.0-46.0 % [place] Hematocrit 36.0 LAB WMCV 80.0-100.0 fL [place] High MCV 102.6 LAB WMCH 26.0-34.0 pg [place] MCH 32.2 LAB WMCHC 30.5-36.0 g/dL [place] MCHC 31.4 LAB WRDW 11.5-15.0 % [place] RDW 15.0 LAB WPLT 150-400 k/uL [place] Platelet Cnt 220 LAB WMPV 9.0-12.7 fL [place] MPV 10.4 Result Comment: Test performed at: [facility] [place] [facility] [address] [place] [address]. LAB ABGRAN 1.45-7.50 k/uL Absol Gran 3.79 Count COMP METABOLIC PANEL Collected: 07/09/2018 Status: F Source: [place] 11:37 AM [facility] REPOSITORY TYPE CODE TESTS RESULT OUT OF REFERENCE UNITS RANGE LAB TP 6.3-8.0 g/dL Protein, Low Total 6.0 LAB ALB 3.9-4.9 g/dL Albumin Low 3.7 LAB CA 8.5-10.2 mg/dL Calcium, Total 9.9 LAB TBIL 0.2-1.3 mg/dL Bilirubin, Total 0.5 LAB ALKP 34-123 U/L Alkaline High Phosphatase 156 LAB AST 13-35 U/L AST 24 LAB GLU 74-99 mg/dL Glucose High 130 LAB BUN 7-21 mg/dL BUN 16 LAB CRET 0.58-0.96 mg/dL Creatinine 0.90 LAB NA 136-144 mmol/L Sodium 137 LAB K 3.7-5.1 mmol/L Potassium 4.1 LAB CL 97-105 mmol/L Chloride 101 LAB CO2 22-30 mmol/L CO2 25 LAB AGAP mmol/L Anion Gap 11 LAB ALT 7-38 U/L ALT 19 LAB GFRAA eGFR- >60 Amer. LAB GFRNAA . eGFR-All Other Races >60 Result Comment: eGFR (Estimated GFR) Units of measure: mL/min/1.73 meters squared eGFR is derived from the reexpressed MDRD Study equation using the following parameters: serum creatinine, age, gender and race. The creatinine assay has been calibrated to be traceable to IDMS. An eGFR <60 mL/min/1.73m2 for >3 months is consistent with chronic kidney disease. Refer to KDOQI guidelines for clinical interpretation. In patients with unstable renal function, e.g. those with acute kidney injury, the eGFR may not accurately reflect actual GFR. CNOVSP Observed: 07/09/2018 Status: COMPLETED Source: [place] 11:30 AM [facility] REPOSITORY Visit (SP) Office ([place]) QUYEN COKER ([id number]) 1940 F T Date Time Provider Department 07/09/18 11:30 AM SUJIT VASQUEZ During your visit today, we recorded the following information about you: Temperature Pulse Blood pressure Weight 98.7 degrees 70/minute 118/75 99.1 kg Abbiechris Ribeiro JAUN 07/09/2018 11:56 AM Signed Est patient. Discuss recent labs, treatment tomorrow. Abbie Clary MARTINEZ Sujit VasquezDO 07/09/2018 12:27 PM Signed Diagnosis: 1) Metastatic colon cancer. 2) DCIS. 3) IMV thrombus. 4) DVT. HPI: The patient is a 77 yo female with a PMH significant for hyperlipidemia, HTN, CAD (PR, CABG x2 2011; stent x1 2013), PVD (carotid artery stenosis s/p CEA left side 2012), sleep apnea (uses CPAP), arthritis (chronic lower back and from lower thoracic area to the neck pain). She developed rectal bleeding in March and underwent evaluation with EGD. Evidently that study was normal. Next underwent colonoscopy and was observed to have a tumor in the cecum. Had normal colonoscopy about 2 years prior. Underwent right hemicolectomy 07/28/2015. 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 Through muscularis propria into subserosal adipose tissue, but not extending to the serosal surface. All margins negative. No lymphovascular invasion. No perineural invasion. No tumor deposits. None of 14 nodes positive. No evidence MSI by IHC. Had screening mammogram 08/2015. Abnormality left breast. Dx mammo and US 09/06/2015. 6.5 x 7.9 mm nodular density with focal calcifications in fthe slightly upper lateral portion of the left breast. Underwent stereotactic core biopsy 09/15/2015. DCIS, cribriform and solid, grade 2, single cell necrosis; no invasive carcinoma. MRI of the breast 10/11/2015: Longitudinally oriented area of mild enhancement in the central left breast thought to be due to postbiopsy hemorrhage/inflammation. Tumor along this entire length is thought less likely but cannot be excluded. MRI of the abdomen and pelvis 10/13/2015: Liver: There is a large, heterogeneously enhancing mass within the entire lateral segment of the left hepatic lobe and extending into the medial segment as well. This mass measures approximately 8.2 x 5.8 x 6.3 cm. This is most consistent with neoplasm, perhaps metastatic given the patient's history of colonic carcinoma. No additional hepatic lesions are seen. There is patchy hepatic fatty change throughout the right hepatic lobe. Partial, nonocclusive thrombus within the superior mesenteric vein just cephalad to its 1st branch. Liver biopsy--consistent with colorectal primary. Patient received the fourth cycle chemotherapy on 12/22/2015. She developed profuse diarrhea and presented to the emergency department for dehydration and shortness of breath. She was found to be an RVR atrial fibrillation with significant hypomagnesemia. She was admitted and started on IV hydration and magnesium replacement as well as medical management of atrial fibrillation. The diarrhea however continued for several more days during which she was given supportive care. Following that she developed an episode of ileus which extend her hospital stay. She was eventually discharged to rehabilitation. This morning she underwent an ultrasound of both lower extremities. She was found to have an acute DVT in the right common femoral vein. Treated with apixaban. Underwent left-sided lumpectomy for DCIS. Specimen - partial breast Procedure - excision with wire-guided localization Lymph node sampling ? no lymph nodes present Specimen integrity - single intact specimen Specimen size ? 15 x 9 x 4 cm Specimen laterality ? left Tumor site ? not specified Size (extent) of DCIS ? 0.3 cm in greatest dimension. See comment. 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 Architectural pattern - cribriform Nuclear grade - grade 2 (intermediate) Necrosis ? not identified Margins ? margin uninvolved by ductal carcinoma in situ. The tumor is 2 cm away from the closest anterior and posterior margins Treatment effect - no known presurgical therapy. Lymph nodes ? not submitted Distant metastasis ? not replicable Additional Pathologic Findings ? fibrocystic changes. - Focal changes consistent with previous biopsy site. Previous therapy: 1) FOLFOX x1; FOLFOX with Vectibix x3. 2) Underwent left hepatectomy 04/28/2016. Final pathology reviewed. Positive margin was cauterized during surgery. 3) Xeloda after liver directed therapy. Started cycle #3 11/27/2016 through 02/2017. 4) Infusional 5-fluorouracil with oxaliplatin on diagnosis lung metastasis. Current therapy: 1) FOLFIRI. Presents for ongoing oncologic management. Interim history: She's been off treatment for about a month. She wanted to take a break due to accumulation of side effects including sensation of head pressure and lightheadedness that occurs the evening of chemotherapy administration and again on day 3 and 4. Also she was having more progressive malaise and fatigue. Occasional diarrhea that was never a predominant symptom. No mouth sores. She's feeling much better. She would like to resume treatment. No complaints today. PMH, medications and allergies as below personally reviewed by me today. Any changes documented in appropriate section. ROS: Constitutional: Denies episodes of fever and night sweats. Neuro: See above. HEENT: No recent change in voice, vision or hearing (significant b/l hearing loss--underwent audiogram early December 2017. Study showed a 50% decline in her hearing. Presumably this is from oxaliplatin.). Resp: See above. CVS: Denies exertional chest pain, PND, orthopnea. GI: See above. : No dysuria or gross hematuria. Stress incontinence--stable. Endo: Denies hot flashes. Denies polyuria and polydipsia. Denies heat and cold intolerance. Musculoskeletal: Denies bone, back, joint and muscular pain. Derm: Denies diffuse pruritis. Heme: No unusual bleeding and/or unexplained bruising. Psych: Normal mood. PHYSICAL EXAM: Vitals: Blood pressure 118/75, pulse 70, temperature 37.1 ?C (98.7 ?F), temperature source Oral, weight 99.1 kg (218 lb 8 oz). Well-appearing and in no acute distress. EYES: Sclerae are anicteric bilaterally. NECK: Supple. No enlargement of thyroid. LYMPHATIC: There is no palpable cervical, supraclavicular adenopathy. RESPIRATORY: Inspiratory breath sounds are clear with no rhonchi or wheeze. CARDIOVASCULAR: Rhythm is irregular. ABDOMEN: The abdomen is nondistended and non-tender. No organomegaly. Extremities: Free of edema. SKIN: No jaundice or rash. No petechiae. NEUROLOGIC: foil cutter II-XII are grossly intact. No focal motor weakness. ASSESSMENT/PLAN: (C18.2) Malignant neoplasm of ascending colon (HCC) (primary encounter diagnosis) (C78.7) Liver metastasis (HCC) Assessment: -sam wild type. -Patient had completed several months of capecitabine following resection for an isolated metastasis. She tolerated capecitabine only marginally and was on lower doses for the last couple cycles. She had marked difficulty with diarrhea, dehydration and several hospitalizations/ER visits for toxicity. However, lung nodule had been stable. 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 -First cycle was complicated by port line rupture. 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 Also now documented 50% decline in hearing presumably from oxaliplatin also. -Tolerating FOLFIRI better with the addition of hydration on day 1 and 3. -Discussed obtaining CTs in July. If or when has progressive disease then consider adding Vectibix. Previously we held off on this treatment due to the potential for diarrhea and how marginally she's tolerated chemotherapy. Plan: -Okay for treatment tomorrow. -Continue hydration on day 1 and day 3. -Emend day 1. Continue the addition of dexamethasone 4 mg twice a day on days 2 and 3. -CTs 08/02. 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 Plan: -Continue Xarelto. Sujit Vasquez DO Referring Provider: SUJIT VASQUEZ [[id number]] Allergies As of Date: 07/09/2018 Noted Allergy Reaction CORGARD (NADOLOL) 07/21/2015 12 - Shortness of Breath PENN 07/21/2015 12 - Shortness of Breath MORPHINE 07/21/2015 12 - Shortness of Breath Comments: Pt says she can tolerate oxycodone. PENICILLINS 07/21/2015 12 - Shortness of Breath PERFUMES 12/07/2017 12 - Shortness of Breath PRAVACHOL (PRAVASTATIN) 07/21/2015 12 - Shortness of Breath SULFITE 07/21/2015 12 - Shortness of Breath Comments: Sulfites in food. Verified by refrigerator tester. ZOCOR (SIMVASTATIN) 07/21/2015 12 - Shortness of Breath Comments: Pt reports allergy to brand Zocor, tolerates generic. Date Reviewed: 07/09/2018 Reviewed by: Abbie Ribeiro LPN - Fully Assessed Reason for Visit: Established Patient [175] Primary Visit Diagnosis:Malignant neoplasm of ascending colon (HCC) [C18.2] Other Visit Diagnoses:Liver metastasis (HCC) [C78.7] Malignant neoplasm metastatic to left lung (HCC) [C78.02] Order(s):CT ABD/PEL W IVCON [[id number]] Order #: [id number] FUTURE CT CHEST W IVCON [[id number]] Order #: [id number] FUTURE iv contrast (will be provided with radiology test)CT Chest ABD/PEL-Inject, intravenously, once for 1 dose.No IV access, insert saline lock prior to the beginning of sedation, infusion, injection of imaging exam. Discontinue saline lock post exam. If Pt. has a central line or IVAD, may access for administration according to line specific nursing protocol. Once exam is complete flush line and de-access according to line specific nursing protocol in the CT contrast administration guidelines link.Disp: 1 EachRfl: 0 enteric contrast (will be provided with radiology test)For CT CHESTABD/PEL W IVCON Routine order Administer, As Directed One Time Only, via Oral, Rectal, both Oral and Rectal, Enteric Tube, Stoma or Indwelling Catheter, Enteric Contrast as designated per enteric contrast guidelinesDisp: 1 EachRfl: 0 azithromycin (ZITHROMAX Z-REVA) 250 mg tabletTAKE 2 TABS ON THE FIRST DAY, THEN ONE TAB DAILY FOR 4 DAYS.Disp: 1 PackageRfl: 0 Follow-up and Disposition History Recorded Prescriptions as of 07/09/2018 Sig: DEXAMETHASONE 4 MG TABLET Take 1 tablet by mouth twice * ONDANSETRON HCL 8 MG TABLET Take 1 tablet by mouth every * FUROSEMIDE 40 MG TABLET Take 40 mg by mouth once wilman* GLIMEPIRIDE 2 MG TABLET Take 2 mg by mouth daily with* OMEPRAZOLE 40 MG CAPSULE,MELODY* Take 1 capsule by mouth once * HYOSCYAMINE 0.125 MG DISINTEG* Dissolve 2 tablets under the * [id number]* Take 10 mL by mouth every 4 h* POTASSIUM CHLORIDE 20 MEQ ORA* Take 20 mEq by mouth once wyatt* RIVAROXABAN 15 MG TABLET Take 1 tablet by mouth daily * Patient taking differently: Take by mouth daily with dinn* LIDOCAINE-PRILOCAINE 2.5 %-2.* Apply 1 application to affect* SODIUM CHLORIDE 0.9% FLUSH Access implanted vascular acc* HEPARIN, PORCINE (PF) 100 UNI* Access implanted vascular acc* LOPERAMIDE 2 MG TABLET Take 2 mg by mouth as needed. MONTELUKAST 10 MG TABLET Take 1 tablet by mouth daily * MAGNESIUM OXIDE 400 MG (241.3* Take 400 mg by mouth twice da* ACETAMINOPHEN 500 MG TABLET Take 1,000 mg by mouth as nee* DIPHENHYDRAMINE 25 MG TABLET Take 50 mg by mouth as needed. ISOSORBIDE MONONITRATE ER 60 * Take 60 mg by mouth once wilman* ASPIRIN 81 MG TABLET,DELAYED * Take 81 mg by mouth once wilman* METOPROLOL TARTRATE 50 MG TAB* Take 50 mg by mouth twice wyatt* LISINOPRIL 10 MG TABLET Take 10 mg by mouth once wilman* MOMETASONE 220 MCG (60 DOSES)* Inhale 1 Puff as instructed. CHOLECALCIFEROL (VITAMIN D3) * Take 1 tablet by mouth once d* SIMVASTATIN 40 MG TABLET Take 20 mg by mouth daily at * NITROGLYCERIN 0.3 MG SUBLINGU* Dissolve 0.3 mg under the ton* ALBUTEROL SULFATE HFA 90 MCG/* Inhale 2 Puffs as instructed * EPINEPHRINE 0.15 MG/0.15 ML I* by INJECTION(UNSPECIFIED PARE* LORATADINE 10 MG TABLET Take 10 mg by mouth as needed. IV CONTRAST (RADIOLOGY PROCED* CT Chest ABD/PEL-Inject, intr* ENTERIC CONTRAST (RADIOLOGY P* For CT CHESTABD/PEL W IVCON R* AZITHROMYCIN 250 MG TABLET TAKE 2 TABS ON THE FIRST DAY,* SODIUM CHLORIDE 0.9% FLUSH Access implanted vascular acc* HEPARIN LOCK FLUSH (PORCINE) * Access implanted vascular acc* Medication notes this encounter SODIUM CHLORIDE 0.9% FLUSH >> Abbie Ribeiro LPN 07/09/2018 11:28 AM >> ABBIE RIBEIRO LPN Jul 09, 2018 11:28 AM duplicate HEPARIN LOCK FLUSH (PORCINE) 100 UNIT/ML INTRAVENOUS SYRINGE >> Abbie Ribeiro LPN 07/09/2018 11:28 AM >> ABBIE RIBEIRO LPN Jul 09, 2018 11:28 AM duplicate Problem List As Of Date 07/09/2018 Noted Resolved Malignant neoplasm of ascending colon (HCC) [C1*INVALID FOR* Abnormal mammogram of left breast [R92.8] INVALID FOR* 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] INVALID FOR* Abnormal magnetic resonance imaging of liver [R*INVALID FOR* Liver metastasis (HCC) [C78.7] INVALID FOR* Diabetes (HCC) [E11.9] INVALID FOR* Hearing loss [H91.90] INVALID FOR* Hypertension [I10] INVALID FOR* Hyperlipidemia [E78.5] INVALID FOR* Carotid artery disease (HCC) [I77.9] INVALID FOR* Coronary artery disease [I25.10] INVALID FOR* Asthma [J45.909] INVALID FOR* Sleep apnea [G47.30] INVALID FOR* Arthritis [M19.90] INVALID FOR* Fibromyalgia [M79.7] INVALID FOR* Atrial arrhythmia [I49.8] INVALID FOR* H/O degenerative disc disease [Z87.39] INVALID FOR* Spondylolysis [M43.00] INVALID FOR* Radiculopathy [M54.10] INVALID FOR* Eczema [L30.9] INVALID FOR* Anemia [D64.9] INVALID FOR* 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*INVALID FOR* Colon cancer (HCC) [C18.9] Hypotension due to drugs [I95.2] INVALID FOR* Orthostasis [I95.1] INVALID FOR* Nausea [R11.0] INVALID FOR* Anemia due to antineoplastic chemotherapy [D64.*INVALID FOR* CKD (chronic kidney disease) stage 3, GFR 30-59*INVALID FOR* Dehydration [E86.0] INVALID FOR* Malignant neoplasm metastatic to left lung (HCC*INVALID FOR* Visit Notes: >> Abbie Ribeiro LPN e Jul 09, 2018 11:29 AM Status: Signed Est patient. Discuss recent labs, treatment tomorrow. Abbie Ribeiro LPN Encounter Status:Closed by SUJIT VASQUEZ DO on 07/09/18 PROGRESS Observed: 06/11/2018 Status: COMPLETED Source: [place] 11:15 AM [facility] REPOSITORY HNO ID: [id number] Author: Sujit Vasquez Service: (none) Author Type: Physician Type: Progress Notes Filed: 06/11/2018 11:32 AM Note Text: Diagnosis: 1) Metastatic colon cancer. KRAS - No variant detected [Reference sequence: (NM_[id number])]. NRAS - No variant detected [Reference sequence: (NM_[id number])]. BRAF - No variant detected [Reference sequence: (NM_[id number])]. 2) DCIS. 3) IMV thrombus. 4) DVT. HPI: The patient is a 77 yo female with a PMH significant for hyperlipidemia, HTN, CAD (PR, CABG x2 2011; stent x1 2013), PVD (carotid artery stenosis s/p CEA left side 2012), sleep apnea (uses CPAP), arthritis (chronic lower back and from lower thoracic area to the neck pain). She developed rectal bleeding in March and underwent evaluation with EGD. Evidently that study was normal. Next underwent colonoscopy and was observed to have a tumor in the cecum. Had normal colonoscopy about 2 years prior. Underwent right hemicolectomy 07/28/2015. 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 Through muscularis propria into subserosal adipose tissue, but not extending to the serosal surface. All margins negative. No lymphovascular invasion. No perineural invasion. No tumor deposits. None of 14 nodes positive. No evidence MSI by IHC. Had screening mammogram 08/2015. Abnormality left breast. Dx mammo and US 09/06/2015. 6.5 x 7.9 mm nodular density with focal calcifications in fthe slightly upper lateral portion of the left breast. Underwent stereotactic core biopsy 09/15/2015. DCIS, cribriform and solid, grade 2, single cell necrosis; no invasive carcinoma. MRI of the breast 10/11/2015: Longitudinally oriented area of mild enhancement in the central left breast thought to be due to postbiopsy hemorrhage/inflammation. Tumor along this entire length is thought less likely but cannot be excluded. MRI of the abdomen and pelvis 10/13/2015: Liver: There is a large, heterogeneously enhancing mass within the entire lateral segment of the left hepatic lobe and extending into the medial segment as well. This mass measures approximately 8.2 x 5.8 x 6.3 cm. This is most consistent with neoplasm, perhaps metastatic given the patient's history of colonic carcinoma. No additional hepatic lesions are seen. There is patchy hepatic fatty change throughout the right hepatic lobe. Partial, nonocclusive thrombus within the superior mesenteric vein just cephalad to its 1st branch. Liver biopsy--consistent with colorectal primary. Patient received the fourth cycle chemotherapy on 12/22/2015. She developed profuse diarrhea and presented to the emergency department for dehydration and shortness of breath. She was found to be an RVR atrial fibrillation with significant hypomagnesemia. She was admitted and started on IV hydration and magnesium replacement as well as medical management of atrial fibrillation. The diarrhea however continued for several more days during which she was given supportive care. Following that she developed an episode of ileus which extend her hospital stay. She was eventually discharged to rehabilitation. This morning she underwent an ultrasound of both lower extremities. She was found to have an acute DVT in the right common femoral vein. Treated with apixaban. Underwent left-sided lumpectomy for DCIS. Specimen - partial breast Procedure - excision with wire-guided localization Lymph node sampling ? no lymph nodes present Specimen integrity - single intact specimen Specimen size ? 15 x 9 x 4 cm Specimen laterality ? left Tumor site ? not specified Size (extent) of DCIS ? 0.3 cm in greatest dimension. See comment. 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 Architectural pattern - cribriform Nuclear grade - grade 2 (intermediate) Necrosis ? not identified Margins ? margin uninvolved by ductal carcinoma in situ. The tumor is 2 cm away from the closest anterior and posterior margins Treatment effect - no known presurgical therapy. Lymph nodes ? not submitted Distant metastasis ? not replicable Additional Pathologic Findings ? fibrocystic changes. - Focal changes consistent with previous biopsy site. Previous therapy: 1) FOLFOX x1; FOLFOX with Vectibix x3. 2) Underwent left hepatectomy 04/28/2016. Final pathology reviewed. Positive margin was cauterized during surgery. 3) Xeloda after liver directed therapy. Started cycle #3 11/27/2016 through 02/2017. 4) Infusional 5-fluorouracil with oxaliplatin on diagnosis lung metastasis. Current therapy: 1) FOLFIRI. Presents for ongoing oncologic management. Interim history: No subjective change. Neuropathy is stable. Predictable pattern of dizziness evening of chemotherapy administration on day 1. Fatigue is persisting a little longer and week #2. She still capable of all her ADLs. PMH, medications and allergies as below personally reviewed by me today. Any changes documented in appropriate section. ROS: Constitutional: Denies episodes of fever and night sweats. Neuro: See above. HEENT: No recent change in voice, vision or hearing (significant b/l hearing loss--underwent audiogram early December 2017. Study showed a 50% decline in her hearing. Presumably this is from oxaliplatin.). Resp: See above. CVS: Denies exertional chest pain, PND, orthopnea. GI: See above. : No dysuria or gross hematuria. Stress incontinence--stable. Endo: Denies hot flashes. Denies polyuria and polydipsia. Denies heat and cold intolerance. Musculoskeletal: Denies bone, back, joint and muscular pain. Derm: Denies diffuse pruritis. Heme: No unusual bleeding and/or unexplained bruising. Psych: Normal mood. PHYSICAL EXAM: Vitals: Blood pressure 100/60, pulse 70, temperature 37.2 ?C (98.9 ?F), temperature source Oral, weight 97.1 kg (214 lb). Well-appearing and in no acute distress. EYES: Sclerae are anicteric bilaterally. NECK: Supple. No enlargement of thyroid. LYMPHATIC: There is no palpable cervical, supraclavicular adenopathy. RESPIRATORY: Inspiratory breath sounds are clear with no rhonchi or wheeze. CARDIOVASCULAR: Rhythm is irregular. ABDOMEN: The abdomen is nondistended and non-tender. No organomegaly. Extremities: Free of edema. SKIN: No jaundice or rash. No petechiae. NEUROLOGIC: foil cutter II-XII are grossly intact. No focal motor weakness. ASSESSMENT/PLAN: (C18.2) Malignant neoplasm of ascending colon (HCC) (primary encounter diagnosis) (C78.7) Liver metastasis (HCC) Assessment: -Patient had completed several months of capecitabine following resection for an isolated metastasis. She tolerated capecitabine only marginally and was on lower doses for the last couple cycles. She had marked difficulty with diarrhea, dehydration and several hospitalizations/ER visits for toxicity. However, lung nodule had been stable. 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 -First cycle was complicated by port line rupture. 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 Also now documented 50% decline in hearing presumably from oxaliplatin also. -Tolerating FOLFIRI better with the addition of hydration on day 1 and 3. -I personally reviewed CT images with patient and . Overall SD. Plan: -Okay for treatment tomorrow. -Continue hydration on day 1 and day 3. -Emend day 1. Continue the addition of dexamethasone 4 mg twice a day on days 2 and 3. -CTs in about 2-3 months. 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 Plan: -Continue Xarelto. Sujit Vasquez DO CNOVSP Observed: 06/11/2018 Status: COMPLETED Source: [place] 10:50 AM [facility] REPOSITORY Visit (SP) Office ([place]) QUYEN COKER ([id number]) 1940 F CHT Date Time Provider Department 06/11/18 10:50 AM SUJIT VASQUEZ During your visit today, we recorded the following information about you: Temperature Pulse Blood pressure Weight 98.9 degrees 70/minute 100/60 97.1 kg Sujit Vasquez DO 06/11/2018 11:32 AM Signed Diagnosis: 1) Metastatic colon cancer. KRAS - No variant detected [Reference sequence: (NM_004985.4)]. NRAS - No variant detected [Reference sequence: (NM_002524.4)]. BRAF - No variant detected [Reference sequence: (NM_004333.4)]. 2) DCIS. 3) IMV thrombus. 4) DVT. HPI: The patient is a 77 yo female with a PMH significant for hyperlipidemia, HTN, CAD (PR, CABG x2 2011; stent x1 2013), PVD (carotid artery stenosis s/p CEA left side 2012), sleep apnea (uses CPAP), arthritis (chronic lower back and from lower thoracic area to the neck pain). She developed rectal bleeding in March and underwent evaluation with EGD. Evidently that study was normal. Next underwent colonoscopy and was observed to have a tumor in the cecum. Had normal colonoscopy about 2 years prior. Underwent right hemicolectomy 07/28/2015. 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 Through muscularis propria into subserosal adipose tissue, but not extending to the serosal surface. All margins negative. No lymphovascular invasion. No perineural invasion. No tumor deposits. None of 14 nodes positive. No evidence MSI by IHC. Had screening mammogram 08/2015. Abnormality left breast. Dx mammo and US 09/06/2015. 6.5 x 7.9 mm nodular density with focal calcifications in fthe slightly upper lateral portion of the left breast. Underwent stereotactic core biopsy 09/15/2015. DCIS, cribriform and solid, grade 2, single cell necrosis; no invasive carcinoma. MRI of the breast 10/11/2015: Longitudinally oriented area of mild enhancement in the central left breast thought to be due to postbiopsy hemorrhage/inflammation. Tumor along this entire length is thought less likely but cannot be excluded. MRI of the abdomen and pelvis 10/13/2015: Liver: There is a large, heterogeneously enhancing mass within the entire lateral segment of the left hepatic lobe and extending into the medial segment as well. This mass measures approximately 8.2 x 5.8 x 6.3 cm. This is most consistent with neoplasm, perhaps metastatic given the patient's history of colonic carcinoma. No additional hepatic lesions are seen. There is patchy hepatic fatty change throughout the right hepatic lobe. Partial, nonocclusive thrombus within the superior mesenteric vein just cephalad to its 1st branch. Liver biopsy--consistent with colorectal primary. Patient received the fourth cycle chemotherapy on 12/22/2015. She developed profuse diarrhea and presented to the emergency department for dehydration and shortness of breath. She was found to be an RVR atrial fibrillation with significant hypomagnesemia. She was admitted and started on IV hydration and magnesium replacement as well as medical management of atrial fibrillation. The diarrhea however continued for several more days during which she was given supportive care. Following that she developed an episode of ileus which extend her hospital stay. She was eventually discharged to rehabilitation. This morning she underwent an ultrasound of both lower extremities. She was found to have an acute DVT in the right common femoral vein. Treated with apixaban. Underwent left-sided lumpectomy for DCIS. Specimen - partial breast Procedure - excision with wire-guided localization Lymph node sampling ? no lymph nodes present Specimen integrity - single intact specimen Specimen size ? 15 x 9 x 4 cm Specimen laterality ? left Tumor site ? not specified Size (extent) of DCIS ? 0.3 cm in greatest dimension. See comment. 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 Architectural pattern - cribriform Nuclear grade - grade 2 (intermediate) Necrosis ? not identified Margins ? margin uninvolved by ductal carcinoma in situ. The tumor is 2 cm away from the closest anterior and posterior margins Treatment effect - no known presurgical therapy. Lymph nodes ? not submitted Distant metastasis ? not replicable Additional Pathologic Findings ? fibrocystic changes. - Focal changes consistent with previous biopsy site. Previous therapy: 1) FOLFOX x1; FOLFOX with Vectibix x3. 2) Underwent left hepatectomy 04/28/2016. Final pathology reviewed. Positive margin was cauterized during surgery. 3) Xeloda after liver directed therapy. Started cycle #3 11/27/2016 through 02/2017. 4) Infusional 5-fluorouracil with oxaliplatin on diagnosis lung metastasis. Current therapy: 1) FOLFIRI. Presents for ongoing oncologic management. Interim history: No subjective change. Neuropathy is stable. Predictable pattern of dizziness evening of chemotherapy administration on day 1. Fatigue is persisting a little longer and week #2. She still capable of all her ADLs. PMH, medications and allergies as below personally reviewed by me today. Any changes documented in appropriate section. ROS: Constitutional: Denies episodes of fever and night sweats. Neuro: See above. HEENT: No recent change in voice, vision or hearing (significant b/l hearing loss--underwent audiogram early December 2017. Study showed a 50% decline in her hearing. Presumably this is from oxaliplatin.). Resp: See above. CVS: Denies exertional chest pain, PND, orthopnea. GI: See above. : No dysuria or gross hematuria. Stress incontinence--stable. Endo: Denies hot flashes. Denies polyuria and polydipsia. Denies heat and cold intolerance. Musculoskeletal: Denies bone, back, joint and muscular pain. Derm: Denies diffuse pruritis. Heme: No unusual bleeding and/or unexplained bruising. Psych: Normal mood. PHYSICAL EXAM: Vitals: Blood pressure 100/60, pulse 70, temperature 37.2 ?C (98.9 ?F), temperature source Oral, weight 97.1 kg (214 lb). Well-appearing and in no acute distress. EYES: Sclerae are anicteric bilaterally. NECK: Supple. No enlargement of thyroid. LYMPHATIC: There is no palpable cervical, supraclavicular adenopathy. RESPIRATORY: Inspiratory breath sounds are clear with no rhonchi or wheeze. CARDIOVASCULAR: Rhythm is irregular. ABDOMEN: The abdomen is nondistended and non-tender. No organomegaly. Extremities: Free of edema. SKIN: No jaundice or rash. No petechiae. NEUROLOGIC: foil cutter II-XII are grossly intact. No focal motor weakness. ASSESSMENT/PLAN: (C18.2) Malignant neoplasm of ascending colon (HCC) (primary encounter diagnosis) (C78.7) Liver metastasis (HCC) Assessment: -Patient had completed several months of capecitabine following resection for an isolated metastasis. She tolerated capecitabine only marginally and was on lower doses for the last couple cycles. She had marked difficulty with diarrhea, dehydration and several hospitalizations/ER visits for toxicity. However, lung nodule had been stable. 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 -First cycle was complicated by port line rupture. 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 Also now documented 50% decline in hearing presumably from oxaliplatin also. -Tolerating FOLFIRI better with the addition of hydration on day 1 and 3. -I personally reviewed CT images with patient and . Overall SD. Plan: -Okay for treatment tomorrow. -Continue hydration on day 1 and day 3. -Emend day 1. Continue the addition of dexamethasone 4 mg twice a day on days 2 and 3. -CTs in about 2-3 months. 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 Plan: -Continue Xarelto. Sujit Vasquez DO Referring Provider: SUJIT VASQUEZ [[id number]] Allergies As of Date: 06/11/2018 Noted Allergy Reaction CORGARD (NADOLOL) 07/21/2015 12 - Shortness of Breath PENN 07/21/2015 12 - Shortness of Breath MORPHINE 07/21/2015 12 - Shortness of Breath Comments: Pt says she can tolerate oxycodone. PENICILLINS 07/21/2015 12 - Shortness of Breath PERFUMES 12/07/2017 12 - Shortness of Breath PRAVACHOL (PRAVASTATIN) 07/21/2015 12 - Shortness of Breath SULFITE 07/21/2015 12 - Shortness of Breath Comments: Sulfites in food. Verified by refrigerator tester. ZOCOR (SIMVASTATIN) 07/21/2015 12 - Shortness of Breath Comments: Pt reports allergy to brand Zocor, tolerates generic. Date Reviewed: 06/11/2018 Reviewed by: Macey Clifford - Fully Assessed Reason for Visit: Established Patient [175] Visit Diagnoses:Malignant neoplasm of ascending colon (HCC) [C18.2] Liver metastasis (HCC) [C78.7] Mesenteric vein thrombosis [I81] Order(s):dexamethasone (DECADRON) 4 mg tabletTake 1 tablet by mouth twice daily with meals. On day 2 AND 3 (after each cycle of chemotherapy)Disp: 8 tabletRfl: 3 ondansetron (ZOFRAN) 8 mg tabletTake 1 tablet by mouth every 8 hours as needed for Nausea/Vomiting.Disp: 90 tabletRfl: 2 Follow-up and Disposition History Recorded Prescriptions as of 06/11/2018 Sig: DEXAMETHASONE 4 MG TABLET Take 1 tablet by mouth twice * ONDANSETRON HCL 8 MG TABLET Take 1 tablet by mouth every * FUROSEMIDE 40 MG TABLET Take 40 mg by mouth once wilman* GLIMEPIRIDE 2 MG TABLET Take 2 mg by mouth daily with* OMEPRAZOLE 40 MG CAPSULE,MELODY* Take 1 capsule by mouth once * HYOSCYAMINE 0.125 MG DISINTEG* Dissolve 2 tablets under the * [id number]-[id number]* Take 10 mL by mouth every 4 h* POTASSIUM CHLORIDE 20 MEQ ORA* Take 20 mEq by mouth once wyatt* RIVAROXABAN 15 MG TABLET Take 1 tablet by mouth daily * Patient taking differently: Take by mouth daily with dinn* LIDOCAINE-PRILOCAINE 2.5 %-2.* Apply 1 application to affect* SODIUM CHLORIDE 0.9% FLUSH Access implanted vascular acc* HEPARIN, PORCINE (PF) 100 UNI* Access implanted vascular acc* LOPERAMIDE 2 MG TABLET Take 2 mg by mouth as needed. SODIUM CHLORIDE 0.9% FLUSH Access implanted vascular acc* HEPARIN LOCK FLUSH (PORCINE) * Access implanted vascular acc* MONTELUKAST 10 MG TABLET Take 1 tablet by mouth daily * MAGNESIUM OXIDE 400 MG (241.3* Take 400 mg by mouth twice da* ACETAMINOPHEN 500 MG TABLET Take 1,000 mg by mouth as nee* DIPHENHYDRAMINE 25 MG TABLET Take 50 mg by mouth as needed. ISOSORBIDE MONONITRATE ER 60 * Take 60 mg by mouth once wilman* ASPIRIN 81 MG TABLET,DELAYED * Take 81 mg by mouth once wilman* METOPROLOL TARTRATE 50 MG TAB* Take 50 mg by mouth twice wyatt* LISINOPRIL 10 MG TABLET Take 10 mg by mouth once wilman* MOMETASONE 220 MCG (60 DOSES)* Inhale 1 Puff as instructed. CHOLECALCIFEROL (VITAMIN D3) * Take 1 tablet by mouth once d* SIMVASTATIN 40 MG TABLET Take 20 mg by mouth daily at * NITROGLYCERIN 0.3 MG SUBLINGU* Dissolve 0.3 mg under the ton* ALBUTEROL SULFATE HFA 90 MCG/* Inhale 2 Puffs as instructed * EPINEPHRINE 0.15 MG/0.15 ML I* by INJECTION(UNSPECIFIED PARE* LORATADINE 10 MG TABLET Take 10 mg by mouth as needed. Problem List As Of Date 06/11/2018 Noted Resolved Malignant neoplasm of ascending colon (HCC) [C1*INVALID FOR* Abnormal mammogram of left breast [R92.8] INVALID FOR* 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] INVALID FOR* Abnormal magnetic resonance imaging of liver [R*INVALID FOR* Liver metastasis (HCC) [C78.7] INVALID FOR* Diabetes (HCC) [E11.9] INVALID FOR* Hearing loss [H91.90] INVALID FOR* Hypertension [I10] INVALID FOR* Hyperlipidemia [E78.5] INVALID FOR* Carotid artery disease (HCC) [I77.9] INVALID FOR* Coronary artery disease [I25.10] INVALID FOR* Asthma [J45.909] INVALID FOR* Sleep apnea [G47.30] INVALID FOR* Arthritis [M19.90] INVALID FOR* Fibromyalgia [M79.7] INVALID FOR* Atrial arrhythmia [I49.8] INVALID FOR* H/O degenerative disc disease [Z87.39] INVALID FOR* Spondylolysis [M43.00] INVALID FOR* Radiculopathy [M54.10] INVALID FOR* Eczema [L30.9] INVALID FOR* Anemia [D64.9] INVALID FOR* 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*INVALID FOR* Colon cancer (HCC) [C18.9] Hypotension due to drugs [I95.2] INVALID FOR* Orthostasis [I95.1] INVALID FOR* Nausea [R11.0] INVALID FOR* Anemia due to antineoplastic chemotherapy [D64.*INVALID FOR* CKD (chronic kidney disease) stage 3, GFR 30-59*INVALID FOR* Dehydration [E86.0] INVALID FOR* Malignant neoplasm metastatic to left lung (HCC*INVALID FOR* Encounter Status:Closed by SUJIT VASQUEZ DO on 06/11/18 COMP METABOLIC PANEL Collected: 06/11/2018 Status: F Source: [place] 10:47 AM [facility] REPOSITORY TYPE CODE TESTS RESULT OUT OF REFERENCE UNITS RANGE LAB TP 6.3-8.0 g/dL Low Protein, Total 6.1 LAB ALB 3.9-4.9 g/dL Albumin 3.9 LAB CA 8.5-10.2 mg/dL Calcium, Total 9.5 LAB TBIL 0.2-1.3 mg/dL Bilirubin, Total 0.3 LAB ALKP 34-123 U/L Alkaline Phosphatase 119 LAB AST 13-35 U/L AST 31 LAB GLU 74-99 mg/dL Glucose High 189 Result Comment: The British Diabetes Association (ADA) provides guidance for cutoff values for fasting glucose and random glucose. The ADA defines fasting as no caloric intake for at least 8 hours. Fas ting plasma glucose results between 100 to 125 mg/dL indicate increased risk for diabetes (prediabetes). Fasting plasma glucose results greater than or equal to 126 mg/dL meet the criteria for diagnosis of diabetes. In the absence of unequivocal hyperglycemia, results should be confirmed by repeat testing. In a patient with classic symptoms of hyperglycemia or hyperglycemic crisis, random plasma glucose results greater than or equal to 200 mg/dL meet the criteria for diagnosis of diabetes. Reference: Standards of Medical Care in Diabetes 2016, British Diabetes Association. Diabetes Care. 2016.39(Suppl 1). LAB BUN 7-21 mg/dL BUN High 22 LAB CRET 0.58-0.96 mg/dL Creatinine High 1.20 LAB NA 136-144 mmol/L Sodium 138 LAB K 3.7-5.1 mmol/L Potassium 4.2 LAB CL 97-105 mmol/L Chloride 98 LAB CO2 22-30 mmol/L CO2 23 LAB AGAP 9-18 mmol/L Anion Gap 17 LAB ALT 7-38 U/L ALT 26 LAB GFRAA eGFR- Amer. 53 LAB GFRNAA . eGFR-All Other Races 44 Result Comment: eGFR (Estimated GFR) Units of measure: mL/min/1.73 meters squared eGFR is derived from the reexpressed MDRD Study equation using the following parameters: serum creatinine, age, gender and race. The creatinine assay has been calibrated to be traceable to IDMS. An eGFR <60 mL/min/1.73m2 for >3 months is consistent with chronic kidney disease. Refer to KDOQI guidelines for clinical interpretation. In patients with unstable renal function, e.g. those with acute kidney injury, the eGFR may not accurately reflect actual GFR. Performed By: #### CMP #### [facility] [address] [place], [place] [address] KELLEN ABS GR + CBC Collected: 06/11/2018 Status: F Source: [place] 10:46 AM [facility] REPOSITORY TYPE CODE TESTS RESULT OUT OF REFERENCE UNITS RANGE LAB WWBC 3.70-11.00 k/uL Low [place] WBC 3.53 LAB WRBC 3.90-5.20 m/uL Low [place] RBC 3.58 LAB WHGB 11.5-15.5 g/dL [place] Hemoglobin 11.5 LAB WHCT 36.0-46.0 % [place] Hematocrit 36.5 LAB WMCV 80.0-100.0 fL [place] High MCV 102.0 LAB WMCH 26.0-34.0 pg [place] MCH 32.1 LAB WMCHC 30.5-36.0 g/dL [place] MCHC 31.5 LAB WRDW 11.5-15.0 % [place] High RDW 15.5 LAB WPLT 150-400 k/uL [place] Platelet Cnt 179 LAB WMPV 9.0-12.7 fL [place] MPV 9.6 Result Comment: Test performed at: [facility], [address] [place] [address]. LAB ABGRAN 1.45-7.50 k/uL Absol Gran 2.05 Count PROGRESS Observed: 05/28/2018 Status: COMPLETED Source: [place] 10:44 AM [facility] REPOSITORY HNO ID: [id number] Author: Sujit Vasquez Service: (none) Author Type: Physician Type: Progress Notes Filed: 05/28/2018 11:09 AM Note Text: Diagnosis: 1) Metastatic colon cancer. KRAS - No variant detected [Reference sequence: ([id number])]. NRAS - No variant detected [Reference sequence: ([id number])]. BRAF - No variant detected [Reference sequence: ([id number])]. 2) DCIS. 3) IMV thrombus. 4) DVT. HPI: The patient is a 77 yo female with a PMH significant for hyperlipidemia, HTN, CAD (PR, CABG x2 2011; stent x1 2013), PVD (carotid artery stenosis s/p CEA left side 2012), sleep apnea (uses CPAP), arthritis (chronic lower back and from lower thoracic area to the neck pain). She developed rectal bleeding in March and underwent evaluation with EGD. Evidently that study was normal. Next underwent colonoscopy and was observed to have a tumor in the cecum. Had normal colonoscopy about 2 years prior. Underwent right hemicolectomy 07/28/2015. 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 Through muscularis propria into subserosal adipose tissue, but not extending to the serosal surface. All margins negative. No lymphovascular invasion. No perineural invasion. No tumor deposits. None of 14 nodes positive. No evidence MSI by IHC. Had screening mammogram 08/2015. Abnormality left breast. Dx mammo and US 09/06/2015. 6.5 x 7.9 mm nodular density with focal calcifications in fthe slightly upper lateral portion of the left breast. Underwent stereotactic core biopsy 09/15/2015. DCIS, cribriform and solid, grade 2, single cell necrosis; no invasive carcinoma. MRI of the breast 10/11/2015: Longitudinally oriented area of mild enhancement in the central left breast thought to be due to postbiopsy hemorrhage/inflammation. Tumor along this entire length is thought less likely but cannot be excluded. MRI of the abdomen and pelvis 10/13/2015: Liver: There is a large, heterogeneously enhancing mass within the entire lateral segment of the left hepatic lobe and extending into the medial segment as well. This mass measures approximately 8.2 x 5.8 x 6.3 cm. This is most consistent with neoplasm, perhaps metastatic given the patient's history of colonic carcinoma. No additional hepatic lesions are seen. There is patchy hepatic fatty change throughout the right hepatic lobe. Partial, nonocclusive thrombus within the superior mesenteric vein just cephalad to its 1st branch. Liver biopsy--consistent with colorectal primary. Patient received the fourth cycle chemotherapy on 12/22/2015. She developed profuse diarrhea and presented to the emergency department for dehydration and shortness of breath. She was found to be an RVR atrial fibrillation with significant hypomagnesemia. She was admitted and started on IV hydration and magnesium replacement as well as medical management of atrial fibrillation. The diarrhea however continued for several more days during which she was given supportive care. Following that she developed an episode of ileus which extend her hospital stay. She was eventually discharged to rehabilitation. This morning she underwent an ultrasound of both lower extremities. She was found to have an acute DVT in the right common femoral vein. Treated with apixaban. Underwent left-sided lumpectomy for DCIS. Specimen - partial breast Procedure - excision with wire-guided localization Lymph node sampling ? no lymph nodes present Specimen integrity - single intact specimen Specimen size ? 15 x 9 x 4 cm Specimen laterality ? left Tumor site ? not specified Size (extent) of DCIS ? 0.3 cm in greatest dimension. See comment. 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 Architectural pattern - cribriform Nuclear grade - grade 2 (intermediate) Necrosis ? not identified Margins ? margin uninvolved by ductal carcinoma in situ. The tumor is 2 cm away from the closest anterior and posterior margins Treatment effect - no known presurgical therapy. Lymph nodes ? not submitted Distant metastasis ? not replicable Additional Pathologic Findings ? fibrocystic changes. - Focal changes consistent with previous biopsy site. Previous therapy: 1) FOLFOX x1; FOLFOX with Vectibix x3. 2) Underwent left hepatectomy 04/28/2016. Final pathology reviewed. Positive margin was cauterized during surgery. 3) Xeloda after liver directed therapy. Started cycle #3 11/27/2016 through 02/2017. 4) Infusional 5-fluorouracil with oxaliplatin on diagnosis lung metastasis. Current therapy: 1) FOLFIRI. Presents for ongoing oncologic management. Interim history: She has a stable, predictable pattern of side effects from chemotherapy. Usually she has hot flashes the evening of day 1 and then chills and some nausea the evening of day 2. Hydration on day 1 and day 3 helps greatly with this. Otherwise stable mild peripheral neuropathy. No headaches. No cough or sputum production. No shortness of breath at rest or with walking. No episodes of jaundice or abdominal pain. PMH, medications and allergies as below personally reviewed by me today. Any changes documented in appropriate section. ROS: Constitutional: Denies episodes of fever and night sweats. Neuro: See above. HEENT: No recent change in voice, vision or hearing (significant b/l hearing loss--underwent audiogram early December 2017. Study showed a 50% decline in her hearing. Presumably this is from oxaliplatin.). Resp: See above. CVS: Denies exertional chest pain, PND, orthopnea. GI: See above. : No dysuria or gross hematuria. Stress incontinence--stable. Endo: Denies hot flashes. Denies polyuria and polydipsia. Denies heat and cold intolerance. Musculoskeletal: Denies bone, back, joint and muscular pain. Derm: Denies diffuse pruritis. Heme: No unusual bleeding and/or unexplained bruising. Psych: Normal mood. PHYSICAL EXAM: Vitals: Blood pressure 128/67, pulse 75, temperature 36.9 ?C (98.4 ?F), weight 98.4 kg (217 lb). Well-appearing and in no acute distress. EYES: Sclerae are anicteric bilaterally. NECK: Supple. No enlargement of thyroid. LYMPHATIC: There is no palpable cervical, supraclavicular adenopathy. RESPIRATORY: Inspiratory breath sounds are clear with no rhonchi or wheeze. CARDIOVASCULAR: Rhythm is irregular. ABDOMEN: The abdomen is nondistended and non-tender. No organomegaly. Extremities: Free of edema. SKIN: No jaundice or rash. No petechiae. NEUROLOGIC: foil cutter II-XII are grossly intact. No focal motor weakness. ASSESSMENT/PLAN: (C18.2) Malignant neoplasm of ascending colon (HCC) (primary encounter diagnosis) (C78.7) Liver metastasis (HCC) Assessment: -Patient had completed several months of capecitabine following resection for an isolated metastasis. She tolerated capecitabine only marginally and was on lower doses for the last couple cycles. She had marked difficulty with diarrhea, dehydration and several hospitalizations/ER visits for toxicity. However, lung nodule had been stable. 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 -First cycle was complicated by port line rupture. 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 Also now documented 50% decline in hearing presumably from oxaliplatin also. -Tolerating FOLFIRI better with the addition of hydration on day 1 and 3. -I personally reviewed CT images with patient and . Overall SD. Plan: -Okay for treatment tomorrow. -Continue hydration on day 1 and day 3. -Emend day 1. Continue the addition of dexamethasone 4 mg twice a day on days 2 and 3. -CTs in about 2-3 months. 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 Plan: -Continue Xarelto. Sujit Vasquez DO COMP METABOLIC PANEL Collected: 05/28/2018 Status: F Source: [place] 10:36 AM [facility] REPOSITORY TYPE CODE TESTS RESULT OUT OF REFERENCE UNITS RANGE LAB TP 6.3-8.0 g/dL Low Protein, Total 6.1 LAB ALB 3.9-4.9 g/dL Low Albumin 3.8 LAB CA 8.5-10.2 mg/dL Calcium, Total 9.5 LAB TBIL 0.2-1.3 mg/dL Bilirubin, Total 0.4 LAB ALKP 34-123 U/L Alkaline High Phosphatase 128 LAB AST 13-35 U/L AST 29 LAB GLU 74-99 mg/dL Glucose High 217 Result Comment: The British Diabetes Association (ADA) provides guidance for cutoff values for fasting glucose and random glucose. The ADA defines fasting as no caloric intake for at least 8 hours. Fas ting plasma glucose results between 100 to 125 mg/dL indicate increased risk for diabetes (prediabetes). Fasting plasma glucose results greater than or equal to 126 mg/dL meet the criteria for diagnosis of diabetes. In the absence of unequivocal hyperglycemia, results should be confirmed by repeat testing. In a patient with classic symptoms of hyperglycemia or hyperglycemic crisis, random plasma glucose results greater than or equal to 200 mg/dL meet the criteria for diagnosis of diabetes. Reference: Standards of Medical Care in Diabetes 2016, British Diabetes Association. Diabetes Care. 2016.39(Suppl 1). LAB BUN 7-21 mg/dL BUN 19 LAB CRET 0.58-0.96 mg/dL Creatinine High 1.09 LAB NA 136-144 mmol/L Sodium 140 LAB K 3.7-5.1 mmol/L Potassium 4.1 LAB CL 97-105 mmol/L Chloride 103 LAB CO2 22-30 mmol/L CO2 23 LAB AGAP 9-18 mmol/L Anion Gap 14 LAB ALT 7-38 U/L ALT 27 LAB GFRAA eGFR- Amer. 59 LAB GFRNAA . eGFR-All Other Races 49 Result Comment: eGFR (Estimated GFR) Units of measure: mL/min/1.73 meters squared eGFR is derived from the reexpressed MDRD Study equation using the following parameters: serum creatinine, age, gender and race. The creatinine assay has been calibrated to be traceable to IDMS. An eGFR <60 mL/min/1.73m2 for >3 months is consistent with chronic kidney disease. Refer to KDOQI guidelines for clinical interpretation. In patients with unstable renal function, e.g. those with acute kidney injury, the eGFR may not accurately reflect actual GFR. Performed By: #### CMP #### [facility] [address] [place] [address] KELLEN ABS GR + CBC Collected: 05/28/2018 Status: F Source: [place] 10:35 AM [facility] REPOSITORY TYPE CODE TESTS RESULT OUT OF REFERENCE UNITS RANGE LAB WWBC 3.70-11.00 k/uL Low [place] WBC 3.32 LAB WRBC 3.90-5.20 m/uL Low [place] RBC 3.39 LAB WHGB 11.5-15.5 g/dL Low [place] Hemoglobin 11.0 LAB WHCT 36.0-46.0 % Low [place] Hematocrit 34.7 LAB WMCV 80.0-100.0 fL [place] High MCV 102.4 LAB WMCH 26.0-34.0 pg [place] MCH 32.4 LAB WMCHC 30.5-36.0 g/dL [place] MCHC 31.7 LAB WRDW 11.5-15.0 % [place] High RDW 16.4 LAB WPLT 150-400 k/uL [place] Platelet Cnt 187 LAB WMPV 9.0-12.7 fL [place] MPV 9.9 Result Comment: Test performed at: [facility], [address] [place] [address] [address] [place] [address]. LAB ABGRAN 1.45-7.50 k/uL Absol Gran 2.13 Count CNOVSP Observed: 05/28/2018 Status: COMPLETED Source: [place] 10:30 AM [facility] REPOSITORY Visit (SP) Office ([place]) QUYEN COKER ([id number]) 1940 F T Date Time Provider Department 05/28/18 10:30 AM SUJIT VASQUEZ During your visit today, we recorded the following information about you: Temperature Pulse Blood pressure Weight 98.4 degrees 75/minute 128/67 98.4 kg Elisa Weber LPN, LPN 05/28/2018 10:52 AM Signed Est pt, discuss recent lab results, tx tomorrow JUAN Traylor DO 05/28/2018 11:09 AM Signed Diagnosis: 1) Metastatic colon cancer. KRAS - No variant detected [Reference sequence: (NM_[id number])]. NRAS - No variant detected [Reference sequence: ([id number])]. BRAF - No variant detected [Reference sequence: ([id number])]. 2) DCIS. 3) IMV thrombus. 4) DVT. HPI: The patient is a 77 yo female with a PMH significant for hyperlipidemia, HTN, CAD (PR, CABG x2 2011; stent x1 2013), PVD (carotid artery stenosis s/p CEA left side 2012), sleep apnea (uses CPAP), arthritis (chronic lower back and from lower thoracic area to the neck pain). She developed rectal bleeding in March and underwent evaluation with EGD. Evidently that study was normal. Next underwent colonoscopy and was observed to have a tumor in the cecum. Had normal colonoscopy about 2 years prior. Underwent right hemicolectomy 07/28/2015. 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 Through muscularis propria into subserosal adipose tissue, but not extending to the serosal surface. All margins negative. No lymphovascular invasion. No perineural invasion. No tumor deposits. None of 14 nodes positive. No evidence MSI by IHC. Had screening mammogram 08/2015. Abnormality left breast. Dx mammo and US 09/06/2015. 6.5 x 7.9 mm nodular density with focal calcifications in fthe slightly upper lateral portion of the left breast. Underwent stereotactic core biopsy 09/15/2015. DCIS, cribriform and solid, grade 2, single cell necrosis; no invasive carcinoma. MRI of the breast 10/11/2015: Longitudinally oriented area of mild enhancement in the central left breast thought to be due to postbiopsy hemorrhage/inflammation. Tumor along this entire length is thought less likely but cannot be excluded. MRI of the abdomen and pelvis 10/13/2015: Liver: There is a large, heterogeneously enhancing mass within the entire lateral segment of the left hepatic lobe and extending into the medial segment as well. This mass measures approximately 8.2 x 5.8 x 6.3 cm. This is most consistent with neoplasm, perhaps metastatic given the patient's history of colonic carcinoma. No additional hepatic lesions are seen. There is patchy hepatic fatty change throughout the right hepatic lobe. Partial, nonocclusive thrombus within the superior mesenteric vein just cephalad to its 1st branch. Liver biopsy--consistent with colorectal primary. Patient received the fourth cycle chemotherapy on 12/22/2015. She developed profuse diarrhea and presented to the emergency department for dehydration and shortness of breath. She was found to be an RVR atrial fibrillation with significant hypomagnesemia. She was admitted and started on IV hydration and magnesium replacement as well as medical management of atrial fibrillation. The diarrhea however continued for several more days during which she was given supportive care. Following that she developed an episode of ileus which extend her hospital stay. She was eventually discharged to rehabilitation. This morning she underwent an ultrasound of both lower extremities. She was found to have an acute DVT in the right common femoral vein. Treated with apixaban. Underwent left-sided lumpectomy for DCIS. Specimen - partial breast Procedure - excision with wire-guided localization Lymph node sampling ? no lymph nodes present Specimen integrity - single intact specimen Specimen size ? 15 x 9 x 4 cm Specimen laterality ? left Tumor site ? not specified Size (extent) of DCIS ? 0.3 cm in greatest dimension. See comment. 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 Architectural pattern - cribriform Nuclear grade - grade 2 (intermediate) Necrosis ? not identified Margins ? margin uninvolved by ductal carcinoma in situ. The tumor is 2 cm away from the closest anterior and posterior margins Treatment effect - no known presurgical therapy. Lymph nodes ? not submitted Distant metastasis ? not replicable Additional Pathologic Findings ? fibrocystic changes. - Focal changes consistent with previous biopsy site. Previous therapy: 1) FOLFOX x1; FOLFOX with Vectibix x3. 2) Underwent left hepatectomy 04/28/2016. Final pathology reviewed. Positive margin was cauterized during surgery. 3) Xeloda after liver directed therapy. Started cycle #3 11/27/2016 through 02/2017. 4) Infusional 5-fluorouracil with oxaliplatin on diagnosis lung metastasis. Current therapy: 1) FOLFIRI. Presents for ongoing oncologic management. Interim history: She has a stable, predictable pattern of side effects from chemotherapy. Usually she has hot flashes the evening of day 1 and then chills and some nausea the evening of day 2. Hydration on day 1 and day 3 helps greatly with this. Otherwise stable mild peripheral neuropathy. No headaches. No cough or sputum production. No shortness of breath at rest or with walking. No episodes of jaundice or abdominal pain. PMH, medications and allergies as below personally reviewed by me today. Any changes documented in appropriate section. ROS: Constitutional: Denies episodes of fever and night sweats. Neuro: See above. HEENT: No recent change in voice, vision or hearing (significant b/l hearing loss--underwent audiogram early December 2017. Study showed a 50% decline in her hearing. Presumably this is from oxaliplatin.). Resp: See above. CVS: Denies exertional chest pain, PND, orthopnea. GI: See above. : No dysuria or gross hematuria. Stress incontinence--stable. Endo: Denies hot flashes. Denies polyuria and polydipsia. Denies heat and cold intolerance. Musculoskeletal: Denies bone, back, joint and muscular pain. Derm: Denies diffuse pruritis. Heme: No unusual bleeding and/or unexplained bruising. Psych: Normal mood. PHYSICAL EXAM: Vitals: Blood pressure 128/67, pulse 75, temperature 36.9 ?C (98.4 ?F), weight 98.4 kg (217 lb). Well-appearing and in no acute distress. EYES: Sclerae are anicteric bilaterally. NECK: Supple. No enlargement of thyroid. LYMPHATIC: There is no palpable cervical, supraclavicular adenopathy. RESPIRATORY: Inspiratory breath sounds are clear with no rhonchi or wheeze. CARDIOVASCULAR: Rhythm is irregular. ABDOMEN: The abdomen is nondistended and non-tender. No organomegaly. Extremities: Free of edema. SKIN: No jaundice or rash. No petechiae. NEUROLOGIC: foil cutter II-XII are grossly intact. No focal motor weakness. ASSESSMENT/PLAN: (C18.2) Malignant neoplasm of ascending colon (HCC) (primary encounter diagnosis) (C78.7) Liver metastasis (HCC) Assessment: -Patient had completed several months of capecitabine following resection for an isolated metastasis. She tolerated capecitabine only marginally and was on lower doses for the last couple cycles. She had marked difficulty with diarrhea, dehydration and several hospitalizations/ER visits for toxicity. However, lung nodule had been stable. 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 -First cycle was complicated by port line rupture. 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 Also now documented 50% decline in hearing presumably from oxaliplatin also. -Tolerating FOLFIRI better with the addition of hydration on day 1 and 3. -I personally reviewed CT images with patient and . Overall SD. Plan: -Okay for treatment tomorrow. -Continue hydration on day 1 and day 3. -Emend day 1. Continue the addition of dexamethasone 4 mg twice a day on days 2 and 3. -CTs in about 2-3 months. 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 Plan: -Continue Xarelto. Sujit Vasquez DO Referring Provider: SUJIT VASQUEZ [[id number]] Allergies As of Date: 05/28/2018 Noted Allergy Reaction CORGARD (NADOLOL) 07/21/2015 12 - Shortness of Breath PENN 07/21/2015 12 - Shortness of Breath MORPHINE 07/21/2015 12 - Shortness of Breath Comments: Pt says she can tolerate oxycodone. PENICILLINS 07/21/2015 12 - Shortness of Breath PERFUMES 12/07/2017 12 - Shortness of Breath PRAVACHOL (PRAVASTATIN) 07/21/2015 12 - Shortness of Breath SULFITE 07/21/2015 12 - Shortness of Breath Comments: Sulfites in food. Verified by refrigerator tester. ZOCOR (SIMVASTATIN) 07/21/2015 12 - Shortness of Breath Comments: Pt reports allergy to brand Zocor, tolerates generic. 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) [C78.02] Mesenteric vein thrombosis [I81] Follow-up and Disposition History Recorded Prescriptions as of 05/28/2018 Sig: FUROSEMIDE 40 MG TABLET Take 40 mg by mouth once wilman* GLIMEPIRIDE 2 MG TABLET Take 2 mg by mouth daily with* DEXAMETHASONE 4 MG TABLET Take 1 tablet by mouth twice * OMEPRAZOLE 40 MG CAPSULE,MELODY* Take 1 capsule by mouth once * HYOSCYAMINE 0.125 MG DISINTEG* Dissolve 2 tablets under the * ONDANSETRON HCL 8 MG TABLET Take 1 tablet by mouth every * [id number]* Take 10 mL by mouth every 4 h* POTASSIUM CHLORIDE 20 MEQ ORA* Take 20 mEq by mouth once wyatt* RIVAROXABAN 15 MG TABLET Take 1 tablet by mouth daily * Patient taking differently: Take by mouth daily with dinn* LIDOCAINE-PRILOCAINE 2.5 %-2.* Apply 1 application to affect* SODIUM CHLORIDE 0.9% FLUSH Access implanted vascular acc* HEPARIN, PORCINE (PF) 100 UNI* Access implanted vascular acc* LOPERAMIDE 2 MG TABLET Take 2 mg by mouth as needed. SODIUM CHLORIDE 0.9% FLUSH Access implanted vascular acc* HEPARIN LOCK FLUSH (PORCINE) * Access implanted vascular acc* MONTELUKAST 10 MG TABLET Take 1 tablet by mouth daily * MAGNESIUM OXIDE 400 MG (241.3* Take 400 mg by mouth twice da* ACETAMINOPHEN 500 MG TABLET Take 1,000 mg by mouth as nee* DIPHENHYDRAMINE 25 MG TABLET Take 50 mg by mouth as needed. ISOSORBIDE MONONITRATE ER 60 * Take 60 mg by mouth once wilman* ASPIRIN 81 MG TABLET,DELAYED * Take 81 mg by mouth once wilman* METOPROLOL TARTRATE 50 MG TAB* Take 50 mg by mouth twice wyatt* LISINOPRIL 10 MG TABLET Take 10 mg by mouth once wilman* MOMETASONE 220 MCG (60 DOSES)* Inhale 1 Puff as instructed. CHOLECALCIFEROL (VITAMIN D3) * Take 1 tablet by mouth once d* SIMVASTATIN 40 MG TABLET Take 20 mg by mouth daily at * NITROGLYCERIN 0.3 MG SUBLINGU* Dissolve 0.3 mg under the ton* ALBUTEROL SULFATE HFA 90 MCG/* Inhale 2 Puffs as instructed * EPINEPHRINE 0.15 MG/0.15 ML I* by INJECTION(UNSPECIFIED PARE* LORATADINE 10 MG TABLET Take 10 mg by mouth as needed. Problem List As Of Date 05/28/2018 Noted Resolved Malignant neoplasm of ascending colon (HCC) [C1*INVALID FOR* Abnormal mammogram of left breast [R92.8] INVALID FOR* 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] INVALID FOR* Abnormal magnetic resonance imaging of liver [R*INVALID FOR* Liver metastasis (HCC) [C78.7] INVALID FOR* Diabetes (HCC) [E11.9] INVALID FOR* Hearing loss [H91.90] INVALID FOR* Hypertension [I10] INVALID FOR* Hyperlipidemia [E78.5] INVALID FOR* Carotid artery disease (HCC) [I77.9] INVALID FOR* Coronary artery disease [I25.10] INVALID FOR* Asthma [J45.909] INVALID FOR* Sleep apnea [G47.30] INVALID FOR* Arthritis [M19.90] INVALID FOR* Fibromyalgia [M79.7] INVALID FOR* Atrial arrhythmia [I49.8] INVALID FOR* H/O degenerative disc disease [Z87.39] INVALID FOR* Spondylolysis [M43.00] INVALID FOR* Radiculopathy [M54.10] INVALID FOR* Eczema [L30.9] INVALID FOR* Anemia [D64.9] INVALID FOR* 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*INVALID FOR* Colon cancer (HCC) [C18.9] Hypotension due to drugs [I95.2] INVALID FOR* Orthostasis [I95.1] INVALID FOR* Nausea [R11.0] INVALID FOR* Anemia due to antineoplastic chemotherapy [D64.*INVALID FOR* CKD (chronic kidney disease) stage 3, GFR 30-59*INVALID FOR* Dehydration [E86.0] INVALID FOR* Malignant neoplasm metastatic to left lung (HCC*INVALID FOR* Visit Notes: >> Elisa Yessy (Juan) JUAN Weber May 28, 2018 10:33 AM Status: Signed Est pt, discuss recent lab results, tx tomorrow Elisa Yessy Weber LPN Encounter Status:Closed by SUJIT VASQUEZ DO on 05/28/18 CEA Collected: 05/28/2018 Status: F Source: [place] 10:30 AM [facility] REPOSITORY TYPE CODE TESTS RESULT OUT OF RANGE REFERENCE UNITS LAB CEA 0.0-2.9 ng/mL High CEA 6.9 Result Comment: Test analyzed by the Nicholas DxI method. Performed By: #### CEA #### [facility] [address] [place], [place] [address] PROGRESS Observed: 05/14/2018 Status: COMPLETED Source: [place] 9:14 AM [facility] REPOSITORY HNO ID: [id number] Author: Sujit Vasquez Service: (none) Author Type: Physician Type: Progress Notes Filed: 05/14/2018 9:37 AM Note Text: Diagnosis: 1) Metastatic colon cancer. KRAS - No variant detected [Reference sequence: ([id number])]. NRAS - No variant detected [Reference sequence: ([id number])]. BRAF - No variant detected [Reference sequence: ([id number])]. 2) DCIS. 3) IMV thrombus. 4) DVT. HPI: The patient is a 77 yo female with a PMH significant for hyperlipidemia, HTN, CAD (PR, CABG x2 2011; stent x1 2013), PVD (carotid artery stenosis s/p CEA left side 2012), sleep apnea (uses CPAP), arthritis (chronic lower back and from lower thoracic area to the neck pain). She developed rectal bleeding in March and underwent evaluation with EGD. Evidently that study was normal. Next underwent colonoscopy and was observed to have a tumor in the cecum. Had normal colonoscopy about 2 years prior. Underwent right hemicolectomy 07/28/2015. 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 Through muscularis propria into subserosal adipose tissue, but not extending to the serosal surface. All margins negative. No lymphovascular invasion. No perineural invasion. No tumor deposits. None of 14 nodes positive. No evidence MSI by IHC. Had screening mammogram 08/2015. Abnormality left breast. Dx mammo and US 09/06/2015. 6.5 x 7.9 mm nodular density with focal calcifications in fthe slightly upper lateral portion of the left breast. Underwent stereotactic core biopsy 09/15/2015. DCIS, cribriform and solid, grade 2, single cell necrosis; no invasive carcinoma. MRI of the breast 10/11/2015: Longitudinally oriented area of mild enhancement in the central left breast thought to be due to postbiopsy hemorrhage/inflammation. Tumor along this entire length is thought less likely but cannot be excluded. MRI of the abdomen and pelvis 10/13/2015: Liver: There is a large, heterogeneously enhancing mass within the entire lateral segment of the left hepatic lobe and extending into the medial segment as well. This mass measures approximately 8.2 x 5.8 x 6.3 cm. This is most consistent with neoplasm, perhaps metastatic given the patient's history of colonic carcinoma. No additional hepatic lesions are seen. There is patchy hepatic fatty change throughout the right hepatic lobe. Partial, nonocclusive thrombus within the superior mesenteric vein just cephalad to its 1st branch. Liver biopsy--consistent with colorectal primary. Patient received the fourth cycle chemotherapy on 12/22/2015. She developed profuse diarrhea and presented to the emergency department for dehydration and shortness of breath. She was found to be an RVR atrial fibrillation with significant hypomagnesemia. She was admitted and started on IV hydration and magnesium replacement as well as medical management of atrial fibrillation. The diarrhea however continued for several more days during which she was given supportive care. Following that she developed an episode of ileus which extend her hospital stay. She was eventually discharged to rehabilitation. This morning she underwent an ultrasound of both lower extremities. She was found to have an acute DVT in the right common femoral vein. Treated with apixaban. Underwent left-sided lumpectomy for DCIS. Specimen - partial breast Procedure - excision with wire-guided localization Lymph node sampling ? no lymph nodes present Specimen integrity - single intact specimen Specimen size ? 15 x 9 x 4 cm Specimen laterality ? left Tumor site ? not specified Size (extent) of DCIS ? 0.3 cm in greatest dimension. See comment. 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 Architectural pattern - cribriform Nuclear grade - grade 2 (intermediate) Necrosis ? not identified Margins ? margin uninvolved by ductal carcinoma in situ. The tumor is 2 cm away from the closest anterior and posterior margins Treatment effect - no known presurgical therapy. Lymph nodes ? not submitted Distant metastasis ? not replicable Additional Pathologic Findings ? fibrocystic changes. - Focal changes consistent with previous biopsy site. Previous therapy: 1) FOLFOX x1; FOLFOX with Vectibix x3. 2) Underwent left hepatectomy 04/28/2016. Final pathology reviewed. Positive margin was cauterized during surgery. 3) Xeloda after liver directed therapy. Started cycle #3 11/27/2016 through 02/2017. 4) Infusional 5-fluorouracil with oxaliplatin on diagnosis lung metastasis. Current therapy: 1) FOLFIRI. Presents for ongoing oncologic management. Interim history: No subjective change. Hydration on day 1 and 3 continues to help with the lightheaded and dizzy feeling that she experiences post irinotecan infusion. Spent the bulk of time today reviewing her CT scans in detail. No exacerbation of neuropathy. Appetite is normal. Only occasional nausea. PMH, medications and allergies as below personally reviewed by me today. Any changes documented in appropriate section. ROS: Constitutional: Denies episodes of fever and night sweats. Neuro: See above. HEENT: No recent change in voice, vision or hearing (significant b/l hearing loss--underwent audiogram early December 2017. Study showed a 50% decline in her hearing. Presumably this is from oxaliplatin.). Resp: See above. CVS: Denies exertional chest pain, PND, orthopnea. GI: See above. : No dysuria or gross hematuria. Stress incontinence--stable. Endo: Denies hot flashes. Denies polyuria and polydipsia. Denies heat and cold intolerance. Musculoskeletal: Denies bone, back, joint and muscular pain. Derm: Denies diffuse pruritis. Heme: No unusual bleeding and/or unexplained bruising. Psych: Normal mood. PHYSICAL EXAM: Vitals: Blood pressure 113/62, pulse 93, temperature 37 ?C (98.6 ?F), temperature source Oral, weight 98.4 kg (217 lb). Well-appearing and in no acute distress. EYES: Sclerae are anicteric bilaterally. NECK: Supple. No enlargement of thyroid. LYMPHATIC: There is no palpable cervical, supraclavicular adenopathy. RESPIRATORY: Inspiratory breath sounds are clear with no rhonchi or wheeze. CARDIOVASCULAR: Rhythm is irregular. ABDOMEN: The abdomen is nondistended and non-tender. No organomegaly. Extremities: Free of edema. SKIN: No jaundice or rash. No petechiae. NEUROLOGIC: foil cutter II-XII are grossly intact. No focal motor weakness. ASSESSMENT/PLAN: (C18.2) Malignant neoplasm of ascending colon (HCC) (primary encounter diagnosis) (C78.7) Liver metastasis (HCC) Assessment: -Patient had completed several months of capecitabine following resection for an isolated metastasis. She tolerated capecitabine only marginally and was on lower doses for the last couple cycles. She had marked difficulty with diarrhea, dehydration and several hospitalizations/ER visits for toxicity. However, lung nodule had been stable. 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 -First cycle was complicated by port line rupture. 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 Also now documented 50% decline in hearing presumably from oxaliplatin also. -Tolerating FOLFIRI better with the addition of hydration on day 1 and 3. -I personally reviewed CT images with patient and . Overall SD. Plan: -Okay for treatment tomorrow. -Continue hydration on day 1 and day 3. -Emend day 1. Continue the addition of dexamethasone 4 mg twice a day on days 2 and 3. -CTs after this cycle. 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 Plan: -Continue Xarelto. Sujit Vasquez DO CNOVSP Observed: 05/14/2018 Status: COMPLETED Source: [place] 8:50 AM [facility] REPOSITORY Visit (SP) Office ([place]) QUYEN COKER ([id number]) 1940 F CHT Date Time Provider Department 05/14/18 8:50 AM SUJIT VASQUEZ During your visit today, we recorded the following information about you: Temperature Pulse Blood pressure Weight 98.6 degrees 93/minute 113/62 98.4 kg Sujit Vasquez DO 05/14/2018 9:37 AM Signed Diagnosis: 1) Metastatic colon cancer. KRAS - No variant detected [Reference sequence: (NM_004985.4)]. NRAS - No variant detected [Reference sequence: (NM_[id number])]. BRAF - No variant detected [Reference sequence: (NM_[id number])]. 2) DCIS. 3) IMV thrombus. 4) DVT. HPI: The patient is a 77 yo female with a PMH significant for hyperlipidemia, HTN, CAD (PR, CABG x2 2011; stent x1 2013), PVD (carotid artery stenosis s/p CEA left side 2012), sleep apnea (uses CPAP), arthritis (chronic lower back and from lower thoracic area to the neck pain). She developed rectal bleeding in March and underwent evaluation with EGD. Evidently that study was normal. Next underwent colonoscopy and was observed to have a tumor in the cecum. Had normal colonoscopy about 2 years prior. Underwent right hemicolectomy 07/28/2015. 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 Through muscularis propria into subserosal adipose tissue, but not extending to the serosal surface. All margins negative. No lymphovascular invasion. No perineural invasion. No tumor deposits. None of 14 nodes positive. No evidence MSI by IHC. Had screening mammogram 08/2015. Abnormality left breast. Dx mammo and US 09/06/2015. 6.5 x 7.9 mm nodular density with focal calcifications in fthe slightly upper lateral portion of the left breast. Underwent stereotactic core biopsy 09/15/2015. DCIS, cribriform and solid, grade 2, single cell necrosis; no invasive carcinoma. MRI of the breast 10/11/2015: Longitudinally oriented area of mild enhancement in the central left breast thought to be due to postbiopsy hemorrhage/inflammation. Tumor along this entire length is thought less likely but cannot be excluded. MRI of the abdomen and pelvis 10/13/2015: Liver: There is a large, heterogeneously enhancing mass within the entire lateral segment of the left hepatic lobe and extending into the medial segment as well. This mass measures approximately 8.2 x 5.8 x 6.3 cm. This is most consistent with neoplasm, perhaps metastatic given the patient's history of colonic carcinoma. No additional hepatic lesions are seen. There is patchy hepatic fatty change throughout the right hepatic lobe. Partial, nonocclusive thrombus within the superior mesenteric vein just cephalad to its 1st branch. Liver biopsy--consistent with colorectal primary. Patient received the fourth cycle chemotherapy on 12/22/2015. She developed profuse diarrhea and presented to the emergency department for dehydration and shortness of breath. She was found to be an RVR atrial fibrillation with significant hypomagnesemia. She was admitted and started on IV hydration and magnesium replacement as well as medical management of atrial fibrillation. The diarrhea however continued for several more days during which she was given supportive care. Following that she developed an episode of ileus which extend her hospital stay. She was eventually discharged to rehabilitation. This morning she underwent an ultrasound of both lower extremities. She was found to have an acute DVT in the right common femoral vein. Treated with apixaban. Underwent left-sided lumpectomy for DCIS. Specimen - partial breast Procedure - excision with wire-guided localization Lymph node sampling ? no lymph nodes present Specimen integrity - single intact specimen Specimen size ? 15 x 9 x 4 cm Specimen laterality ? left Tumor site ? not specified Size (extent) of DCIS ? 0.3 cm in greatest dimension. See comment. 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 Architectural pattern - cribriform Nuclear grade - grade 2 (intermediate) Necrosis ? not identified Margins ? margin uninvolved by ductal carcinoma in situ. The tumor is 2 cm away from the closest anterior and posterior margins Treatment effect - no known presurgical therapy. Lymph nodes ? not submitted Distant metastasis ? not replicable Additional Pathologic Findings ? fibrocystic changes. - Focal changes consistent with previous biopsy site. Previous therapy: 1) FOLFOX x1; FOLFOX with Vectibix x3. 2) Underwent left hepatectomy 04/28/2016. Final pathology reviewed. Positive margin was cauterized during surgery. 3) Xeloda after liver directed therapy. Started cycle #3 11/27/2016 through 02/2017. 4) Infusional 5-fluorouracil with oxaliplatin on diagnosis lung metastasis. Current therapy: 1) FOLFIRI. Presents for ongoing oncologic management. Interim history: No subjective change. Hydration on day 1 and 3 continues to help with the lightheaded and dizzy feeling that she experiences post irinotecan infusion. Spent the bulk of time today reviewing her CT scans in detail. No exacerbation of neuropathy. Appetite is normal. Only occasional nausea. PMH, medications and allergies as below personally reviewed by me today. Any changes documented in appropriate section. ROS: Constitutional: Denies episodes of fever and night sweats. Neuro: See above. HEENT: No recent change in voice, vision or hearing (significant b/l hearing loss--underwent audiogram early December 2017. Study showed a 50% decline in her hearing. Presumably this is from oxaliplatin.). Resp: See above. CVS: Denies exertional chest pain, PND, orthopnea. GI: See above. : No dysuria or gross hematuria. Stress incontinence--stable. Endo: Denies hot flashes. Denies polyuria and polydipsia. Denies heat and cold intolerance. Musculoskeletal: Denies bone, back, joint and muscular pain. Derm: Denies diffuse pruritis. Heme: No unusual bleeding and/or unexplained bruising. Psych: Normal mood. PHYSICAL EXAM: Vitals: Blood pressure 113/62, pulse 93, temperature 37 ?C (98.6 ?F), temperature source Oral, weight 98.4 kg (217 lb). Well-appearing and in no acute distress. EYES: Sclerae are anicteric bilaterally. NECK: Supple. No enlargement of thyroid. LYMPHATIC: There is no palpable cervical, supraclavicular adenopathy. RESPIRATORY: Inspiratory breath sounds are clear with no rhonchi or wheeze. CARDIOVASCULAR: Rhythm is irregular. ABDOMEN: The abdomen is nondistended and non-tender. No organomegaly. Extremities: Free of edema. SKIN: No jaundice or rash. No petechiae. NEUROLOGIC: foil cutter II-XII are grossly intact. No focal motor weakness. ASSESSMENT/PLAN: (C18.2) Malignant neoplasm of ascending colon (HCC) (primary encounter diagnosis) (C78.7) Liver metastasis (HCC) Assessment: -Patient had completed several months of capecitabine following resection for an isolated metastasis. She tolerated capecitabine only marginally and was on lower doses for the last couple cycles. She had marked difficulty with diarrhea, dehydration and several hospitalizations/ER visits for toxicity. However, lung nodule had been stable. 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 -First cycle was complicated by port line rupture. 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 Also now documented 50% decline in hearing presumably from oxaliplatin also. -Tolerating FOLFIRI better with the addition of hydration on day 1 and 3. -I personally reviewed CT images with patient and . Overall SD. Plan: -Okay for treatment tomorrow. -Continue hydration on day 1 and day 3. -Emend day 1. Continue the addition of dexamethasone 4 mg twice a day on days 2 and 3. -CTs after this cycle. 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 Plan: -Continue Xarelto. Sujit Vasquez DO Referring Provider: SUJIT VASQUEZ [[id number]] Allergies As of Date: 05/14/2018 Noted Allergy Reaction CORGARD (NADOLOL) 07/21/2015 12 - Shortness of Breath PENN 07/21/2015 12 - Shortness of Breath MORPHINE 07/21/2015 12 - Shortness of Breath Comments: Pt says she can tolerate oxycodone. PENICILLINS 07/21/2015 12 - Shortness of Breath PERFUMES 12/07/2017 12 - Shortness of Breath PRAVACHOL (PRAVASTATIN) 07/21/2015 12 - Shortness of Breath SULFITE 07/21/2015 12 - Shortness of Breath Comments: Sulfites in food. Verified by refrigerator tester. ZOCOR (SIMVASTATIN) 07/21/2015 12 - Shortness of Breath Comments: Pt reports allergy to brand Zocor, tolerates generic. Date Reviewed: 05/14/2018 Reviewed by: Macey Clifford - Fully Assessed Reason for Visit: Established Patient [175] Primary Visit Diagnosis:Malignant neoplasm of ascending colon (HCC) [C18.2] Other Visit Diagnoses:Liver metastasis (HCC) [C78.7] Mesenteric vein thrombosis [I81] Follow-up and Disposition History Recorded Prescriptions as of 05/14/2018 Sig: FUROSEMIDE 40 MG TABLET Take 40 mg by mouth once wilman* GLIMEPIRIDE 2 MG TABLET Take 2 mg by mouth daily with* DEXAMETHASONE 4 MG TABLET Take 1 tablet by mouth twice * OMEPRAZOLE 40 MG CAPSULE,MELODY* Take 1 capsule by mouth once * HYOSCYAMINE 0.125 MG DISINTEG* Dissolve 2 tablets under the * ONDANSETRON HCL 8 MG TABLET Take 1 tablet by mouth every * [id number]* Take 10 mL by mouth every 4 h* POTASSIUM CHLORIDE 20 MEQ ORA* Take 20 mEq by mouth once wyatt* RIVAROXABAN 15 MG TABLET Take 1 tablet by mouth daily * Patient taking differently: Take by mouth daily with dinn* LIDOCAINE-PRILOCAINE 2.5 %-2.* Apply 1 application to affect* SODIUM CHLORIDE 0.9% FLUSH Access implanted vascular acc* HEPARIN, PORCINE (PF) 100 UNI* Access implanted vascular acc* LOPERAMIDE 2 MG TABLET Take 2 mg by mouth as needed. SODIUM CHLORIDE 0.9% FLUSH Access implanted vascular acc* HEPARIN LOCK FLUSH (PORCINE) * Access implanted vascular acc* MONTELUKAST 10 MG TABLET Take 1 tablet by mouth daily * MAGNESIUM OXIDE 400 MG (241.3* Take 400 mg by mouth twice da* ACETAMINOPHEN 500 MG TABLET Take 1,000 mg by mouth as nee* DIPHENHYDRAMINE 25 MG TABLET Take 50 mg by mouth as needed. ISOSORBIDE MONONITRATE ER 60 * Take 60 mg by mouth once wilman* ASPIRIN 81 MG TABLET,DELAYED * Take 81 mg by mouth once wilman* METOPROLOL TARTRATE 50 MG TAB* Take 50 mg by mouth twice wyatt* LISINOPRIL 10 MG TABLET Take 10 mg by mouth once wilman* MOMETASONE 220 MCG (60 DOSES)* Inhale 1 Puff as instructed. CHOLECALCIFEROL (VITAMIN D3) * Take 1 tablet by mouth once d* SIMVASTATIN 40 MG TABLET Take 20 mg by mouth daily at * NITROGLYCERIN 0.3 MG SUBLINGU* Dissolve 0.3 mg under the ton* ALBUTEROL SULFATE HFA 90 MCG/* Inhale 2 Puffs as instructed * EPINEPHRINE 0.15 MG/0.15 ML I* by INJECTION(UNSPECIFIED PARE* LORATADINE 10 MG TABLET Take 10 mg by mouth as needed. Problem List As Of Date 05/14/2018 Noted Resolved Malignant neoplasm of ascending colon (HCC) [C1*INVALID FOR* Abnormal mammogram of left breast [R92.8] INVALID FOR* 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] INVALID FOR* Abnormal magnetic resonance imaging of liver [R*INVALID FOR* Liver metastasis (HCC) [C78.7] INVALID FOR* Diabetes (HCC) [E11.9] INVALID FOR* Hearing loss [H91.90] INVALID FOR* Hypertension [I10] INVALID FOR* Hyperlipidemia [E78.5] INVALID FOR* Carotid artery disease (HCC) [I77.9] INVALID FOR* Coronary artery disease [I25.10] INVALID FOR* Asthma [J45.909] INVALID FOR* Sleep apnea [G47.30] INVALID FOR* Arthritis [M19.90] INVALID FOR* Fibromyalgia [M79.7] INVALID FOR* Atrial arrhythmia [I49.8] INVALID FOR* H/O degenerative disc disease [Z87.39] INVALID FOR* Spondylolysis [M43.00] INVALID FOR* Radiculopathy [M54.10] INVALID FOR* Eczema [L30.9] INVALID FOR* Anemia [D64.9] INVALID FOR* 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*INVALID FOR* Colon cancer (HCC) [C18.9] Hypotension due to drugs [I95.2] INVALID FOR* Orthostasis [I95.1] INVALID FOR* Nausea [R11.0] INVALID FOR* Anemia due to antineoplastic chemotherapy [D64.*INVALID FOR* CKD (chronic kidney disease) stage 3, GFR 30-59*INVALID FOR* Dehydration [E86.0] INVALID FOR* Malignant neoplasm metastatic to left lung (HCC*INVALID FOR* Encounter Status:Closed by SUJIT VASQUEZ DO on 05/14/18 PROGRESS Observed: 05/13/2018 Status: COMPLETED Source: [place] 3:07 PM [facility] REPOSITORY HNO ID: [id number] Author: Mignon Quiñonez Ct Service: (none) Author Type: (none) Type: Progress Notes Filed: 05/13/2018 3:08 PM Note Text: Radiology Service Progress Note PATIENT NAME: Quyen Coker DATE OF SERVICE: May 13, 2018 TIME: 3:07 PM PATIENT IDENTITY VERIFICATION COMPLETED USING TWO (2) METHODS: Patient confirmed name verbally and Date of . PATIENT GENDER DATA: Female. status: : No status: NO. PATIENT RELEVANT IMPLANT DATA REVIEWED: Not Applicable CONTRAST INDUCED NEPHROPATHY RISK FACTORS: Patient age > 60 years CREATININE: Creatinine Date Value Ref Range Status 04/26/2018 1.13 (H) 0.58 - 0.96 mg/dL Final 04/16/2018 1.08 (H) 0.58 - 0.96 mg/dL Final 04/02/2018 1.21 (H) 0.58 - 0.96 mg/dL Final eGFR-All Other Races Date Value Ref Range Status 04/26/2018 47 . Final Comment: eGFR (Estimated GFR) Units of measure: mL/min/1.73 meters squared eGFR is derived from the reexpressed MDRD Study equation using the following parameters: serum creatinine, age, gender and race. The creatinine assay has been calibrated to be traceable to IDMS. An eGFR <60 mL/min/1.73m2 for >3 months is consistent with chronic kidney disease. Refer to KDOQI guidelines for clinical interpretation. In patients with unstable renal function, e.g. those with acute kidney injury, the eGFR may not accurately reflect actual GFR. eGFR- Date Value Ref Range Status 04/26/2018 57 Final P.O.C.T. RESULTS: POC done: Yes, See Lab Tab May 13, 2018 RADIOLOGIST NOTIFIED?: No ALLERGIES: Reviewed and unchanged CONTRAST ALLERGY: NO. PERIPHERAL IV ACCESS: power port accessed by hemoc,pre-iv hydration in hemoc RADIOLOGY DEPARTMENT: CT; Exam(s) Completed: Chest Abdomen Pelvis SIGNED BY: Mignon Rodriguez May 13, 2018 3:[address] ABD/PEL W IVCON Observed: 05/13/2018 Status: F Source: [place] 3:07 PM [facility] REPOSITORY * * *Final Report* * * DATE OF EXAM: May 13 2018 3:07PM [facility] 0530 - CT ABD/PEL W IVCON / PROCEDURE REASON: multiple diagnoses * * * * Physician Interpretation * * * * EXAMINATION: CT ABDOMEN AND PELVIS WITH IV CONTRAST CLINICAL HISTORY: Malignant neoplasm of ascending colon. Secondary malignant neoplasm of liver and intrahepatic bile duct. TECHNIQUE: CT of the abdomen and pelvis was performed using standard technique, scanning from just above the dome of the diaphragm to the symphysis pubis. MQ: CTAP_3 Contrast: Other: 150 ml of Omnipaque 300 Oral: 50 ml of 50ML Omnipaque [address] Radiation dose: Integrated Dose-length product (DLP) for this visit = 1289 mGy*cm. CT Dose Reduction Employed: Automated exposure control(AEC) and iterative recon COMPARISON: CT scan of the abdomen and pelvis dated 03/12/2018. RESULT: Liver: Again seen are postsurgical changes of prior left hepatectomy. The liver is of low-density, when compared the spleen, suggesting fatty infiltration of the liver. Low-density lesion seen within the right hepatic lobe has slightly changed in configuration, slightly less defined, currently measuring approximately 1.5 x 1.0 cm (series 5, image 19), however not significantly changed in size. No new hepatic mass is identified. Biliary: No bile duct dilation. Patient is status post cholecystectomy. Spleen: No mass. No splenomegaly. Pancreas: No mass or duct dilation. Adrenals: No mass. Kidneys: No mass, calculus or hydronephrosis. GI tract: No dilation or wall thickening. Diverticulosis of the sigmoid colon. No CT evidence of diverticulitis. Possible small hiatal hernia. Lymph nodes: No abdominal or pelvic lymphadenopathy. Mesentery/Peritoneum: No ascites or mass. Retroperitoneum: No mass. Vasculature: The celiac axis and SMA are patent. The portal vein and branches, splenic vein, SMV, and hepatic veins are patent. Arterial atherosclerotic disease without aneurysm. Pelvis: No mass, ascites or fluid collection. Bones/Soft Tissues: No acute osseous pathology. Lower thorax: A chest CT performed will be reported separately. IMPRESSION: Stable postsurgical changes of prior left hepatectomy. Small right hepatic lobe has slightly changed in configuration, appears slightly less defined, however not significantly changed in size. No new hepatic lesions. Aerologist: MANUELA Transcribe Date/Time: May 14 2018 2:02P Dictated by : CYNTHIA VIZCAINO MD This examination was interpreted and the report reviewed and electronically signed by: CYNTHIA VIZCAINO MD on May 14 2018 2:09PM EST [id number] CT CHEST W IVCON Observed: 05/13/2018 Status: F Source: [place] 3:07 PM [facility] REPOSITORY * * *Final Report* * * DATE OF EXAM: May 13 2018 3:07PM [facility] 0539 - CT CHEST W IVCON / PROCEDURE REASON: multiple diagnoses * * * * Physician Interpretation * * * * EXAMINATION: CHEST CT WITH CONTRAST CLINICAL HISTORY: Malignant neoplasm of ascending colon Secondary malignant neoplasm of liver and intrahepatic bile duct Technique: Spiral CT acquisition of the chest from the thoracic inlet to the upper abdomen following IV contrast. MQ: CTCWR_5 Contrast: 150 mL Omnipaque [address] Dose-Length Product: 1289 mGy*cm CT Dose Reduction Employed: Automated exposure control(AEC) and iterative recon Comparison: CT scan of the chest dated 03/12/2018. RESULT: Limitations: None. Lines, tubes, and devices: Right Port-A-Cath is again noted and unchanged. Lung parenchyma and pleura: No consolidation. Stable, approximately 5 mm nodule again noted within the anterior subpleural portion of the left upper lobe (series 6, image 35). Stable approximately 4 mm subpleural nodule seen within the right middle lobe (series 6, image 68). Few other tiny lung nodules are also stable. No new or enlarging lung nodules. Again identified is a calcified granuloma in the subpleural right lower lobe. No pleural effusion. No pneumothorax. Central airways are patent. Thoracic inlet, heart, and mediastinum: No lymphadenopathy in the axillary, or left hilar regions. Stable mildly enlarged right hilar lymph node, containing calcification, measuring approximately 1.1 cm short axis dimension (series 4, image 105). The thoracic aorta and main pulmonary artery are normal in caliber. The cardiac chambers are normal in size. Coronary artery atherosclerotic calcifications are noted, although the study is not optimized for coronary assessment. No pericardial effusion or thickening. Bones and soft tissues: No destructive bone lesion. Osteopenia. Degenerative changes of the skeleton. Sternotomy. Stable masslike spiculated density with surrounding surgical clips within the left breast (series 4, image 98). Other smaller nodular regions in the left breast are also stable. Upper abdomen: Please see separately dictated CT scan report of the abdomen and pelvis. IMPRESSION: No significant interval change in CT appearance of the chest. Stable enlarged right hilar lymph node, containing calcifications. Sequela of remote granulomatous disease. Stable subcentimeter noncalcified pulmonary nodules, measuring up to 5 mm. Aerologist: PSCB Transcribe Date/Time: May 14 2018 1:54P Dictated by : CYNTHIA VIZCAINO MD This examination was interpreted and the report reviewed and electronically signed by: CYNTHIA VIZCAINO MD on May 14 2018 2:09PM EST [id number] KELLEN ABS GR + CBC Collected: 05/13/2018 Status: F Source: [place] 1:56 PM [facility] REPOSITORY TYPE CODE TESTS RESULT OUT OF REFERENCE UNITS RANGE LAB WWBC 3.70-11.00 k/uL [place] WBC 4.91 LAB WRBC 3.90-5.20 m/uL Low [place] RBC 3.39 LAB WHGB 11.5-15.5 g/dL Low [place] Hemoglobin 10.9 LAB WHCT 36.0-46.0 % Low [place] Hematocrit 34.0 LAB WMCV 80.0-100.0 fL [place] High MCV 100.3 LAB WMCH 26.0-34.0 pg [place] MCH 32.2 LAB WMCHC 30.5-36.0 g/dL [place] MCHC 32.1 LAB WRDW 11.5-15.0 % [place] High RDW 16.3 LAB WPLT 150-400 k/uL [place] Platelet Cnt 173 LAB WMPV 9.0-12.7 fL [place] MPV 9.8 LAB ABGRAN 1.45-7.50 k/uL Absol Gran Count 2.64 COMP METABOLIC PANEL Collected: 05/13/2018 Status: F Source: [place] 1:56 PM [facility] REPOSITORY TYPE CODE TESTS RESULT OUT OF REFERENCE UNITS RANGE LAB TP 6.3-8.0 g/dL Protein, Total 6.3 LAB ALB 3.9-4.9 g/dL Low Albumin 3.8 LAB CA 8.5-10.2 mg/dL Calcium, Total 9.0 LAB TBIL 0.2-1.3 mg/dL Bilirubin, Total 0.3 LAB ALKP 32-117 U/L Alkaline High Phosphatase 123 LAB AST 13-35 U/L AST 28 LAB GLU 74-99 mg/dL Low Glucose 72 Result Comment: The [place] Diabetes Association (ADA) provides guidance for cutoff values for fasting glucose and random glucose. The ADA defines fasting as no caloric intake for at least 8 hours. Fas ting plasma glucose results between 100 to 125 mg/dL indicate increased risk for diabetes (prediabetes). Fasting plasma glucose results greater than or equal to 126 mg/dL meet the criteria for diagnosis of diabetes. In the absence of unequivocal hyperglycemia, results should be confirmed by repeat testing. In a patient with classic symptoms of hyperglycemia or hyperglycemic crisis, random plasma glucose results greater than or equal to 200 mg/dL meet the criteria for diagnosis of diabetes. Reference: Standards of Medical Care in Diabetes 2016, British Diabetes Association. Diabetes Care. 2016.39(Suppl 1). LAB BUN 7-21 mg/dL BUN 17 LAB CRET 0.58-0.96 mg/dL Creatinine High 1.07 LAB NA 136-144 mmol/L Sodium 140 LAB K 3.7-5.1 mmol/L Potassium 4.0 LAB CL 97-105 mmol/L Chloride 103 LAB CO2 22-30 mmol/L CO2 25 LAB AGAP 9-18 mmol/L Anion Gap 12 LAB ALT 7-38 U/L ALT 29 LAB GFRAA eGFR- Amer. >60 LAB GFRNAA . eGFR-All Other Races 50 Result Comment: eGFR (Estimated GFR) Units of measure: mL/min/1.73 meters squared eGFR is derived from the reexpressed MDRD Study equation using the following parameters: serum creatinine, age, gender and race. The creatinine assay has been calibrated to be traceable to IDMS. An eGFR <60 mL/min/1.73m2 for >3 months is consistent with chronic kidney disease. Refer to KDOQI guidelines for clinical interpretation. In patients with unstable renal function, e.g. those with acute kidney injury, the eGFR may not accurately reflect actual GFR. Performed By: #### CMP #### [facility] [address] [place], [place] [address] COMP METABOLIC PANEL Collected: 04/26/2018 Status: F Source: [place] 10:53 AM [facility] REPOSITORY TYPE CODE TESTS RESULT OUT OF REFERENCE UNITS RANGE LAB TP 6.3-8.0 g/dL Protein, Total 6.5 LAB ALB 3.9-4.9 g/dL Low Albumin 3.7 LAB CA 8.5-10.2 mg/dL Calcium, Total 9.3 LAB TBIL 0.2-1.3 mg/dL Bilirubin, Total 0.4 LAB ALKP 32-117 U/L Alkaline High Phosphatase 136 LAB AST 13-35 U/L AST 30 LAB GLU 74-99 mg/dL Glucose High 142 Result Comment: The British Diabetes Association (ADA) provides guidance for cutoff values for fasting glucose and random glucose. The ADA defines fasting as no caloric intake for at least 8 hours. Fas ting plasma glucose results between 100 to 125 mg/dL indicate increased risk for diabetes (prediabetes). Fasting plasma glucose results greater than or equal to 126 mg/dL meet the criteria for diagnosis of diabetes. In the absence of unequivocal hyperglycemia, results should be confirmed by repeat testing. In a patient with classic symptoms of hyperglycemia or hyperglycemic crisis, random plasma glucose results greater than or equal to 200 mg/dL meet the criteria for diagnosis of diabetes. Reference: Standards of Medical Care in Diabetes 2016, British Diabetes Association. Diabetes Care. 2016.39(Suppl 1). LAB BUN 7-21 mg/dL BUN High 22 LAB CRET 0.58-0.96 mg/dL Creatinine High 1.13 LAB NA 136-144 mmol/L Low Sodium 135 LAB K 3.7-5.1 mmol/L Potassium 4.2 LAB CL 97-105 mmol/L Chloride 98 LAB CO2 22-30 mmol/L CO2 23 LAB AGAP 9-18 mmol/L Anion Gap 14 LAB ALT 7-38 U/L ALT 36 LAB GFRAA eGFR- Amer. 57 LAB GFRNAA . eGFR-All Other Races 47 Result Comment: eGFR (Estimated GFR) Units of measure: mL/min/1.73 meters squared eGFR is derived from the reexpressed MDRD Study equation using the following parameters: serum creatinine, age, gender and race. The creatinine assay has been calibrated to be traceable to IDMS. An eGFR <60 mL/min/1.73m2 for >3 months is consistent with chronic kidney disease. Refer to KDOQI guidelines for clinical interpretation. In patients with unstable renal function, e.g. those with acute kidney injury, the eGFR may not accurately reflect actual GFR. Performed By: #### CMP, CEA #### [facility] [address] [id number] CEA Collected: 04/26/2018 Status: F Source: [place] 10:53 AM [facility] REPOSITORY TYPE CODE TESTS RESULT OUT OF RANGE REFERENCE UNITS LAB CEA 0.0-2.9 ng/mL High CEA 6.4 Result Comment: Test analyzed by the Nicholas DxI method. Performed By: #### CMP, CEA #### [facility] [address] [id number] KELLEN ABS GR + CBC Collected: 04/26/2018 Status: F Source: [place] 10:52 AM [facility] REPOSITORY TYPE CODE TESTS RESULT OUT OF REFERENCE UNITS RANGE LAB WWBC 3.70-11.00 k/uL Low [place] WBC 3.60 LAB WRBC 3.90-5.20 m/uL Low [place] RBC 3.52 LAB WHGB 11.5-15.5 g/dL Low [place] Hemoglobin 11.4 LAB WHCT 36.0-46.0 % Low [place] Hematocrit 35.0 LAB WMCV 80.0-100.0 fL [place] MCV 99.4 LAB WMCH 26.0-34.0 pg [place] MCH 32.4 LAB WMCHC 30.5-36.0 g/dL [place] MCHC 32.6 LAB WRDW 11.5-15.0 % [place] High RDW 16.3 LAB WPLT 150-400 k/uL [place] Platelet Cnt 198 LAB WMPV 9.0-12.7 fL [place] MPV 9.8 Result Comment: Test performed at: [facility], [address] [place] [address] Rd[address] [place] [address]. LAB ABGRAN 1.45-7.50 k/uL Absol Gran 1.88 Count CNOVSP Observed: 04/26/2018 Status: COMPLETED Source: [place] 10:40 AM [facility] REPOSITORY Visit (SP) Office (HEMAWS) QUYEN COKER ([id number]) 1940 F CHT Date Time Provider Department 04/26/18 10:40 AM SUJIT VASQUEZ During your visit today, we recorded the following information about you: Temperature Pulse Blood pressure Weight 98.8 degrees 90/minute 108/71 96.8 kg Sujit Vasquez DO 04/26/2018 10:58 AM Signed Diagnosis: 1) Metastatic colon cancer. KRAS - No variant detected [Reference sequence: ([id number])]. NRAS - No variant detected [Reference sequence: ([id number])]. BRAF - No variant detected [Reference sequence: ([id number])]. 2) DCIS. 3) IMV thrombus. 4) DVT. HPI: The patient is a 77 yo female with a PMH significant for hyperlipidemia, HTN, CAD (PR, CABG x2 2011; stent x1 2013), PVD (carotid artery stenosis s/p CEA left side 2012), sleep apnea (uses CPAP), arthritis (chronic lower back and from lower thoracic area to the neck pain). She developed rectal bleeding in March and underwent evaluation with EGD. Evidently that study was normal. Next underwent colonoscopy and was observed to have a tumor in the cecum. Had normal colonoscopy about 2 years prior. Underwent right hemicolectomy 07/28/2015. 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 Through muscularis propria into subserosal adipose tissue, but not extending to the serosal surface. All margins negative. No lymphovascular invasion. No perineural invasion. No tumor deposits. None of 14 nodes positive. No evidence MSI by IHC. Had screening mammogram 08/2015. Abnormality left breast. Dx mammo and US 09/06/2015. 6.5 x 7.9 mm nodular density with focal calcifications in fthe slightly upper lateral portion of the left breast. Underwent stereotactic core biopsy 09/15/2015. DCIS, cribriform and solid, grade 2, single cell necrosis; no invasive carcinoma. MRI of the breast 10/11/2015: Longitudinally oriented area of mild enhancement in the central left breast thought to be due to postbiopsy hemorrhage/inflammation. Tumor along this entire length is thought less likely but cannot be excluded. MRI of the abdomen and pelvis 10/13/2015: Liver: There is a large, heterogeneously enhancing mass within the entire lateral segment of the left hepatic lobe and extending into the medial segment as well. This mass measures approximately 8.2 x 5.8 x 6.3 cm. This is most consistent with neoplasm, perhaps metastatic given the patient's history of colonic carcinoma. No additional hepatic lesions are seen. There is patchy hepatic fatty change throughout the right hepatic lobe. Partial, nonocclusive thrombus within the superior mesenteric vein just cephalad to its 1st branch. Liver biopsy--consistent with colorectal primary. Patient received the fourth cycle chemotherapy on 12/22/2015. She developed profuse diarrhea and presented to the emergency department for dehydration and shortness of breath. She was found to be an RVR atrial fibrillation with significant hypomagnesemia. She was admitted and started on IV hydration and magnesium replacement as well as medical management of atrial fibrillation. The diarrhea however continued for several more days during which she was given supportive care. Following that she developed an episode of ileus which extend her hospital stay. She was eventually discharged to rehabilitation. This morning she underwent an ultrasound of both lower extremities. She was found to have an acute DVT in the right common femoral vein. Treated with apixaban. Underwent left-sided lumpectomy for DCIS. Specimen - partial breast Procedure - excision with wire-guided localization Lymph node sampling ? no lymph nodes present Specimen integrity - single intact specimen Specimen size ? 15 x 9 x 4 cm Specimen laterality ? left Tumor site ? not specified Size (extent) of DCIS ? 0.3 cm in greatest dimension. See comment. 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 Architectural pattern - cribriform Nuclear grade - grade 2 (intermediate) Necrosis ? not identified Margins ? margin uninvolved by ductal carcinoma in situ. The tumor is 2 cm away from the closest anterior and posterior margins Treatment effect - no known presurgical therapy. Lymph nodes ? not submitted Distant metastasis ? not replicable Additional Pathologic Findings ? fibrocystic changes. - Focal changes consistent with previous biopsy site. Previous therapy: 1) FOLFOX x1; FOLFOX with Vectibix x3. 2) Underwent left hepatectomy 04/28/2016. Final pathology reviewed. Positive margin was cauterized during surgery. 3) Xeloda after liver directed therapy. Started cycle #3 11/27/2016 through 02/2017. 4) Infusional 5-fluorouracil with oxaliplatin on diagnosis lung metastasis. Current therapy: 1) FOLFIRI. Presents for ongoing oncologic management. Interim history: No subjective change--side effects remain stable--She has lightheadedness that last about an hour after she is unhooked from IV therapy on day 1. Then the evening she has some lightheadedness. With hydration on day 1 and 3 she's been doing much better overall secondary to lightheadedness. No palpitations. No shortness of breath at rest. No abdominal pain, bloating or distention. No diarrhea this past cycle. No mouth sores his past cycle. She has no respiratory symptoms including cough, sputum production wheezing. No history of hemoptysis. PMH, medications and allergies as below personally reviewed by me today. Any changes documented in appropriate section. ROS: Constitutional: Denies episodes of fever and night sweats. Neuro: See above.. HEENT: No recent change in voice, vision or hearing (significant b/l hearing loss--underwent audiogram early December 2017. Study showed a 50% decline in her hearing. Presumably this is from oxaliplatin.). Resp: See above. CVS: Denies exertional chest pain, PND, orthopnea. GI: See above. : No dysuria or gross hematuria. Stress incontinence--stable. Endo: Denies hot flashes. Denies polyuria and polydipsia. Denies heat and cold intolerance. Musculoskeletal: Denies bone, back, joint and muscular pain. Derm: Denies diffuse pruritis. Heme: No unusual bleeding and/or unexplained bruising. Psych: Normal mood. PHYSICAL EXAM: Vitals: Blood pressure 108/71, pulse 90, temperature 37.1 ?C (98.8 ?F), temperature source Oral, weight 96.8 kg (213 lb 8 oz). Well-appearing and in no acute distress. EYES: Sclerae are anicteric bilaterally. NECK: Supple. No enlargement of thyroid. LYMPHATIC: There is no palpable cervical, supraclavicular adenopathy. RESPIRATORY: Inspiratory breath sounds are clear with no rhonchi or wheeze. CARDIOVASCULAR: Rhythm is irregular. ABDOMEN: The abdomen is nondistended and non-tender. No organomegaly. Extremities: Free of edema. SKIN: No jaundice or rash. No petechiae. NEUROLOGIC: foil cutter II-XII are grossly intact. No focal motor weakness. ASSESSMENT/PLAN: (C18.2) Malignant neoplasm of ascending colon (HCC) (primary encounter diagnosis) (C78.7) Liver metastasis (HCC) Assessment: -Patient had completed several months of capecitabine following resection for an isolated metastasis. She tolerated capecitabine only marginally and was on lower doses for the last couple cycles. She had marked difficulty with diarrhea, dehydration and several hospitalizations/ER visits for toxicity. However, lung nodule had been stable. 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 -First cycle was complicated by port line rupture. 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 Also now documented 50% decline in hearing presumably from oxaliplatin also. -Tolerating FOLFIRI better with the addition of hydration on day 1 and 3. -No change in plan. Plan: -Okay for treatment tomorrow. -Plan hydration on day 1 and day 3. -Emend day 1. Continue the addition of dexamethasone 4 mg twice a day on days 2 and 3. -CTs after this cycle. 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 Plan: -Continue Xarelto. Sujit Vasquez DO Referring Provider: SUJIT VASQUEZ [[id number]] Allergies As of Date: 04/26/2018 Noted Allergy Reaction CORGARD (NADOLOL) 07/21/2015 12 - Shortness of Breath PENN 07/21/2015 12 - Shortness of Breath MORPHINE 07/21/2015 12 - Shortness of Breath Comments: Pt says she can tolerate oxycodone. PENICILLINS 07/21/2015 12 - Shortness of Breath PERFUMES 12/07/2017 12 - Shortness of Breath PRAVACHOL (PRAVASTATIN) 07/21/2015 12 - Shortness of Breath SULFITE 07/21/2015 12 - Shortness of Breath Comments: Sulfites in food. Verified by refrigerator tester. ZOCOR (SIMVASTATIN) 07/21/2015 12 - Shortness of Breath Comments: Pt reports allergy to brand Zocor, tolerates generic. Date Reviewed: 04/26/2018 Reviewed by: Sujit Vasquez - Fully Assessed Reason for Visit: Established Patient [175] Primary Visit Diagnosis:Malignant neoplasm of ascending colon (HCC) [C18.2] Other Visit Diagnoses:Liver metastasis (HCC) [C78.7] Malignant neoplasm of colon, unspecified part of colon (HCC) [C18.9] Mesenteric vein thrombosis [I81] Order(s):CT ABD/PEL W IVCON [[id number]] Order #: [id number] FUTURE CT CHEST W IVCON [[id number]] Order #: [id number] FUTURE iv contrast (will be provided with radiology test)CT Chest ABD/PEL-Inject, intravenously, once for 1 dose.No IV access, insert saline lock prior to the beginning of sedation, infusion, injection of imaging exam. Discontinue saline lock post exam. If Pt. has a central line or IVAD, may access for administration according to line specific nursing protocol. Once exam is complete flush line and de-access according to line specific nursing protocol in the CT contrast administration guidelines link.Disp: 1 EachRfl: 0 enteric contrast (will be provided with radiology test)For CT CHESTABD/PEL W IVCON Routine order Administer, As Directed One Time Only, via Oral, Rectal, both Oral and Rectal, Enteric Tube, Stoma or Indwelling Catheter, Enteric Contrast as designated per enteric contrast guidelinesDisp: 1 EachRfl: 0 Follow-up and Disposition History Recorded Prescriptions as of 04/26/2018 Sig: FUROSEMIDE 40 MG TABLET Take 40 mg by mouth once wilman* GLIMEPIRIDE 2 MG TABLET Take 2 mg by mouth daily with* DEXAMETHASONE 4 MG TABLET Take 1 tablet by mouth twice * OMEPRAZOLE 40 MG CAPSULE,MELODY* Take 1 capsule by mouth once * HYOSCYAMINE 0.125 MG DISINTEG* Dissolve 2 tablets under the * ONDANSETRON HCL 8 MG TABLET Take 1 tablet by mouth every * [id number]* Take 10 mL by mouth every 4 h* POTASSIUM CHLORIDE 20 MEQ ORA* Take 20 mEq by mouth once wyatt* RIVAROXABAN 15 MG TABLET Take 1 tablet by mouth daily * Patient taking differently: Take by mouth daily with dinn* LIDOCAINE-PRILOCAINE 2.5 %-2.* Apply 1 application to affect* SODIUM CHLORIDE 0.9% FLUSH Access implanted vascular acc* HEPARIN, PORCINE (PF) 100 UNI* Access implanted vascular acc* LOPERAMIDE 2 MG TABLET Take 2 mg by mouth as needed. SODIUM CHLORIDE 0.9% FLUSH Access implanted vascular acc* HEPARIN LOCK FLUSH (PORCINE) * Access implanted vascular acc* MONTELUKAST 10 MG TABLET Take 1 tablet by mouth daily * MAGNESIUM OXIDE 400 MG (241.3* Take 400 mg by mouth twice da* ACETAMINOPHEN 500 MG TABLET Take 1,000 mg by mouth as nee* DIPHENHYDRAMINE 25 MG TABLET Take 50 mg by mouth as needed. ISOSORBIDE MONONITRATE ER 60 * Take 60 mg by mouth once wilman* ASPIRIN 81 MG TABLET,DELAYED * Take 81 mg by mouth once wilman* METOPROLOL TARTRATE 50 MG TAB* Take 50 mg by mouth twice wyatt* LISINOPRIL 10 MG TABLET Take 10 mg by mouth once wilman* MOMETASONE 220 MCG (60 DOSES)* Inhale 1 Puff as instructed. CHOLECALCIFEROL (VITAMIN D3) * Take 1 tablet by mouth once d* SIMVASTATIN 40 MG TABLET Take 20 mg by mouth daily at * NITROGLYCERIN 0.3 MG SUBLINGU* Dissolve 0.3 mg under the ton* ALBUTEROL SULFATE HFA 90 MCG/* Inhale 2 Puffs as instructed * EPINEPHRINE 0.15 MG/0.15 ML I* by INJECTION(UNSPECIFIED PARE* LORATADINE 10 MG TABLET Take 10 mg by mouth as needed. IV CONTRAST (RADIOLOGY PROCED* CT Chest ABD/PEL-Inject, intr* ENTERIC CONTRAST (RADIOLOGY P* For CT CHESTABD/PEL W IVCON R* Medication notes this encounter METOPROLOL TARTRATE 50 MG TABLET >> Sujit Vasquez DO 04/26/2018 10:57 AM >> SUJIT VASQUEZ DO SunApr 26, 2018 10:57 AM Confirmed. FUROSEMIDE 20 MG TABLET >> Macey Cilfford MA 04/26/2018 10:26 AM >> MACEY CLIFFORD MA SunApr 26, 2018 10:26 AM No longer taking this strength. Problem List As Of Date 04/26/2018 Noted Resolved Malignant neoplasm of ascending colon (HCC) [C1*INVALID FOR* Abnormal mammogram of left breast [R92.8] INVALID FOR* 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] INVALID FOR* Abnormal magnetic resonance imaging of liver [R*INVALID FOR* Liver metastasis (HCC) [C78.7] INVALID FOR* Diabetes (HCC) [E11.9] INVALID FOR* Hearing loss [H91.90] INVALID FOR* Hypertension [I10] INVALID FOR* Hyperlipidemia [E78.5] INVALID FOR* Carotid artery disease (HCC) [I77.9] INVALID FOR* Coronary artery disease [I25.10] INVALID FOR* Asthma [J45.909] INVALID FOR* Sleep apnea [G47.30] INVALID FOR* Arthritis [M19.90] INVALID FOR* Fibromyalgia [M79.7] INVALID FOR* Atrial arrhythmia [I49.8] INVALID FOR* H/O degenerative disc disease [Z87.39] INVALID FOR* Spondylolysis [M43.00] INVALID FOR* Radiculopathy [M54.10] INVALID FOR* Eczema [L30.9] INVALID FOR* Anemia [D64.9] INVALID FOR* 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*INVALID FOR* Colon cancer (HCC) [C18.9] Hypotension due to drugs [I95.2] INVALID FOR* Orthostasis [I95.1] INVALID FOR* Nausea [R11.0] INVALID FOR* Anemia due to antineoplastic chemotherapy [D64.*INVALID FOR* CKD (chronic kidney disease) stage 3, GFR 30-59*INVALID FOR* Dehydration [E86.0] INVALID FOR* Malignant neoplasm metastatic to left lung (HCC*INVALID FOR* Encounter Status:Closed by SUJIT VASQUEZ DO on 04/26/18 PROGRESS Observed: 04/26/2018 Status: COMPLETED Source: [place] 10:39 AM [facility] REPOSITORY HNO ID: [id number] Author: Sujit Vasquez Service: (none) Author Type: Physician Type: Progress Notes Filed: 04/26/2018 10:58 AM Note Text: Diagnosis: 1) Metastatic colon cancer. KRAS - No variant detected [Reference sequence: (NM_004985.4)]. NRAS - No variant detected [Reference sequence: (NM_002524.4)]. BRAF - No variant detected [Reference sequence: (NM_[id number])]. 2) DCIS. 3) IMV thrombus. 4) DVT. HPI: The patient is a 77 yo female with a PMH significant for hyperlipidemia, HTN, CAD (PR, CABG x2 2011; stent x1 2013), PVD (carotid artery stenosis s/p CEA left side 2012), sleep apnea (uses CPAP), arthritis (chronic lower back and from lower thoracic area to the neck pain). She developed rectal bleeding in March and underwent evaluation with EGD. Evidently that study was normal. Next underwent colonoscopy and was observed to have a tumor in the cecum. Had normal colonoscopy about 2 years prior. Underwent right hemicolectomy 07/28/2015. 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 Through muscularis propria into subserosal adipose tissue, but not extending to the serosal surface. All margins negative. No lymphovascular invasion. No perineural invasion. No tumor deposits. None of 14 nodes positive. No evidence MSI by IHC. Had screening mammogram 08/2015. Abnormality left breast. Dx mammo and US 09/06/2015. 6.5 x 7.9 mm nodular density with focal calcifications in fthe slightly upper lateral portion of the left breast. Underwent stereotactic core biopsy 09/15/2015. DCIS, cribriform and solid, grade 2, single cell necrosis; no invasive carcinoma. MRI of the breast 10/11/2015: Longitudinally oriented area of mild enhancement in the central left breast thought to be due to postbiopsy hemorrhage/inflammation. Tumor along this entire length is thought less likely but cannot be excluded. MRI of the abdomen and pelvis 10/13/2015: Liver: There is a large, heterogeneously enhancing mass within the entire lateral segment of the left hepatic lobe and extending into the medial segment as well. This mass measures approximately 8.2 x 5.8 x 6.3 cm. This is most consistent with neoplasm, perhaps metastatic given the patient's history of colonic carcinoma. No additional hepatic lesions are seen. There is patchy hepatic fatty change throughout the right hepatic lobe. Partial, nonocclusive thrombus within the superior mesenteric vein just cephalad to its 1st branch. Liver biopsy--consistent with colorectal primary. Patient received the fourth cycle chemotherapy on 12/22/2015. She developed profuse diarrhea and presented to the emergency department for dehydration and shortness of breath. She was found to be an RVR atrial fibrillation with significant hypomagnesemia. She was admitted and started on IV hydration and magnesium replacement as well as medical management of atrial fibrillation. The diarrhea however continued for several more days during which she was given supportive care. Following that she developed an episode of ileus which extend her hospital stay. She was eventually discharged to rehabilitation. This morning she underwent an ultrasound of both lower extremities. She was found to have an acute DVT in the right common femoral vein. Treated with apixaban. Underwent left-sided lumpectomy for DCIS. Specimen - partial breast Procedure - excision with wire-guided localization Lymph node sampling ? no lymph nodes present Specimen integrity - single intact specimen Specimen size ? 15 x 9 x 4 cm Specimen laterality ? left Tumor site ? not specified Size (extent) of DCIS ? 0.3 cm in greatest dimension. See comment. 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 Architectural pattern - cribriform Nuclear grade - grade 2 (intermediate) Necrosis ? not identified Margins ? margin uninvolved by ductal carcinoma in situ. The tumor is 2 cm away from the closest anterior and posterior margins Treatment effect - no known presurgical therapy. Lymph nodes ? not submitted Distant metastasis ? not replicable Additional Pathologic Findings ? fibrocystic changes. - Focal changes consistent with previous biopsy site. Previous therapy: 1) FOLFOX x1; FOLFOX with Vectibix x3. 2) Underwent left hepatectomy 04/28/2016. Final pathology reviewed. Positive margin was cauterized during surgery. 3) Xeloda after liver directed therapy. Started cycle #3 11/27/2016 through 02/2017. 4) Infusional 5-fluorouracil with oxaliplatin on diagnosis lung metastasis. Current therapy: 1) FOLFIRI. Presents for ongoing oncologic management. Interim history: No subjective change--side effects remain stable--She has lightheadedness that last about an hour after she is unhooked from IV therapy on day 1. Then the evening she has some lightheadedness. With hydration on day 1 and 3 she's been doing much better overall secondary to lightheadedness. No palpitations. No shortness of breath at rest. No abdominal pain, bloating or distention. No diarrhea this past cycle. No mouth sores his past cycle. She has no respiratory symptoms including cough, sputum production wheezing. No history of hemoptysis. PMH, medications and allergies as below personally reviewed by me today. Any changes documented in appropriate section. ROS: Constitutional: Denies episodes of fever and night sweats. Neuro: See above.. HEENT: No recent change in voice, vision or hearing (significant b/l hearing loss--underwent audiogram early December 2017. Study showed a 50% decline in her hearing. Presumably this is from oxaliplatin.). Resp: See above. CVS: Denies exertional chest pain, PND, orthopnea. GI: See above. : No dysuria or gross hematuria. Stress incontinence--stable. Endo: Denies hot flashes. Denies polyuria and polydipsia. Denies heat and cold intolerance. Musculoskeletal: Denies bone, back, joint and muscular pain. Derm: Denies diffuse pruritis. Heme: No unusual bleeding and/or unexplained bruising. Psych: Normal mood. PHYSICAL EXAM: Vitals: Blood pressure 108/71, pulse 90, temperature 37.1 ?C (98.8 ?F), temperature source Oral, weight 96.8 kg (213 lb 8 oz). Well-appearing and in no acute distress. EYES: Sclerae are anicteric bilaterally. NECK: Supple. No enlargement of thyroid. LYMPHATIC: There is no palpable cervical, supraclavicular adenopathy. RESPIRATORY: Inspiratory breath sounds are clear with no rhonchi or wheeze. CARDIOVASCULAR: Rhythm is irregular. ABDOMEN: The abdomen is nondistended and non-tender. No organomegaly. Extremities: Free of edema. SKIN: No jaundice or rash. No petechiae. NEUROLOGIC: foil cutter II-XII are grossly intact. No focal motor weakness. ASSESSMENT/PLAN: (C18.2) Malignant neoplasm of ascending colon (HCC) (primary encounter diagnosis) (C78.7) Liver metastasis (HCC) Assessment: -Patient had completed several months of capecitabine following resection for an isolated metastasis. She tolerated capecitabine only marginally and was on lower doses for the last couple cycles. She had marked difficulty with diarrhea, dehydration and several hospitalizations/ER visits for toxicity. However, lung nodule had been stable. 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 -First cycle was complicated by port line rupture. 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 Also now documented 50% decline in hearing presumably from oxaliplatin also. -Tolerating FOLFIRI better with the addition of hydration on day 1 and 3. -No change in plan. Plan: -Okay for treatment tomorrow. -Plan hydration on day 1 and day 3. -Emend day 1. Continue the addition of dexamethasone 4 mg twice a day on days 2 and 3. -CTs after this cycle. 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 Plan: -Continue Xarelto. Sujit Vasquez, DO PROGRESS Observed: 04/16/2018 Status: COMPLETED Source: [place] 10:47 AM [facility] REPOSITORY HNO ID: [id number] Author: Sujit Vasquez Service: (none) Author Type: Physician Type: Progress Notes Filed: 04/16/2018 10:59 AM Note Text: Diagnosis: 1) Metastatic colon cancer. KRAS - No variant detected [Reference sequence: (NM_004985.4)]. NRAS - No variant detected [Reference sequence: (NM_002524.4)]. BRAF - No variant detected [Reference sequence: (NM_004333.4)]. 2) DCIS. 3) IMV thrombus. 4) DVT. HPI: The patient is a 77 yo female with a PMH significant for hyperlipidemia, HTN, CAD (PR, CABG x2 2011; stent x1 2013), PVD (carotid artery stenosis s/p CEA left side 2012), sleep apnea (uses CPAP), arthritis (chronic lower back and from lower thoracic area to the neck pain). She developed rectal bleeding in March and underwent evaluation with EGD. Evidently that study was normal. Next underwent colonoscopy and was observed to have a tumor in the cecum. Had normal colonoscopy about 2 years prior. Underwent right hemicolectomy 07/28/2015. 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 Through muscularis propria into subserosal adipose tissue, but not extending to the serosal surface. All margins negative. No lymphovascular invasion. No perineural invasion. No tumor deposits. None of 14 nodes positive. No evidence MSI by IHC. Had screening mammogram 08/2015. Abnormality left breast. Dx mammo and US 09/06/2015. 6.5 x 7.9 mm nodular density with focal calcifications in fthe slightly upper lateral portion of the left breast. Underwent stereotactic core biopsy 09/15/2015. DCIS, cribriform and solid, grade 2, single cell necrosis; no invasive carcinoma. MRI of the breast 10/11/2015: Longitudinally oriented area of mild enhancement in the central left breast thought to be due to postbiopsy hemorrhage/inflammation. Tumor along this entire length is thought less likely but cannot be excluded. MRI of the abdomen and pelvis 10/13/2015: Liver: There is a large, heterogeneously enhancing mass within the entire lateral segment of the left hepatic lobe and extending into the medial segment as well. This mass measures approximately 8.2 x 5.8 x 6.3 cm. This is most consistent with neoplasm, perhaps metastatic given the patient's history of colonic carcinoma. No additional hepatic lesions are seen. There is patchy hepatic fatty change throughout the right hepatic lobe. Partial, nonocclusive thrombus within the superior mesenteric vein just cephalad to its 1st branch. Liver biopsy--consistent with colorectal primary. Patient received the fourth cycle chemotherapy on 12/22/2015. She developed profuse diarrhea and presented to the emergency department for dehydration and shortness of breath. She was found to be an RVR atrial fibrillation with significant hypomagnesemia. She was admitted and started on IV hydration and magnesium replacement as well as medical management of atrial fibrillation. The diarrhea however continued for several more days during which she was given supportive care. Following that she developed an episode of ileus which extend her hospital stay. She was eventually discharged to rehabilitation. This morning she underwent an ultrasound of both lower extremities. She was found to have an acute DVT in the right common femoral vein. Treated with apixaban. Underwent left-sided lumpectomy for DCIS. Specimen - partial breast Procedure - excision with wire-guided localization Lymph node sampling ? no lymph nodes present Specimen integrity - single intact specimen Specimen size ? 15 x 9 x 4 cm Specimen laterality ? left Tumor site ? not specified Size (extent) of DCIS ? 0.3 cm in greatest dimension. See comment. 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 Architectural pattern - cribriform Nuclear grade - grade 2 (intermediate) Necrosis ? not identified Margins ? margin uninvolved by ductal carcinoma in situ. The tumor is 2 cm away from the closest anterior and posterior margins Treatment effect - no known presurgical therapy. Lymph nodes ? not submitted Distant metastasis ? not replicable Additional Pathologic Findings ? fibrocystic changes. - Focal changes consistent with previous biopsy site. Previous therapy: 1) FOLFOX x1; FOLFOX with Vectibix x3. 2) Underwent left hepatectomy 04/28/2016. Final pathology reviewed. Positive margin was cauterized during surgery. 3) Xeloda after liver directed therapy. Started cycle #3 11/27/2016 through 02/2017. 4) Infusional 5-fluorouracil with oxaliplatin on diagnosis lung metastasis. Current therapy: 1) FOLFIRI. Presents for ongoing oncologic management. Interim history: Side effects remain stable--She has lightheadedness that last about an hour after she is unhooked from IV therapy on day 1. Then the evening she has some lightheadedness. With hydration on day 1 and 3 she's been doing much better overall secondary to lightheadedness. No palpitations. No shortness of breath at rest. No abdominal pain, bloating or distention. No diarrhea this past cycle. No mouth sores his past cycle. She has no respiratory symptoms including cough, sputum production wheezing. No history of hemoptysis. PMH, medications and allergies as below personally reviewed by me today. Any changes documented in appropriate section. ROS: Constitutional: Denies episodes of fever and night sweats. Neuro: See above.. HEENT: No recent change in voice, vision or hearing (significant b/l hearing loss--underwent audiogram early December 2017. Study showed a 50% decline in her hearing. Presumably this is from oxaliplatin.). Resp: See above. CVS: Denies exertional chest pain, PND, orthopnea. GI: See above. : No dysuria or gross hematuria. Stress incontinence--stable. Endo: Denies hot flashes. Denies polyuria and polydipsia. Denies heat and cold intolerance. Musculoskeletal: Denies bone, back, joint and muscular pain. Derm: Denies diffuse pruritis. Heme: No unusual bleeding and/or unexplained bruising. Psych: Normal mood. PHYSICAL EXAM: Vitals: Blood pressure 115/66, pulse 85, temperature 36.8 ?C (98.3 ?F), weight 97.1 kg (214 lb). Well-appearing and in no acute distress. EYES: Sclerae are anicteric bilaterally. NECK: Supple. No enlargement of thyroid. LYMPHATIC: There is no palpable cervical, supraclavicular adenopathy. RESPIRATORY: Inspiratory breath sounds are clear with no rhonchi or wheeze. CARDIOVASCULAR: Rhythm is irregular. ABDOMEN: The abdomen is nondistended and non-tender. No organomegaly. Extremities: Free of edema. SKIN: No jaundice or rash. No petechiae. NEUROLOGIC: foil cutter II-XII are grossly intact. No focal motor weakness. ASSESSMENT/PLAN: (C18.2) Malignant neoplasm of ascending colon (HCC) (primary encounter diagnosis) (C78.7) Liver metastasis (HCC) Assessment: -Patient had completed several months of capecitabine following resection for an isolated metastasis. She tolerated capecitabine only marginally and was on lower doses for the last couple cycles. She had marked difficulty with diarrhea, dehydration and several hospitalizations/ER visits for toxicity. However, lung nodule had been stable. 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 -First cycle was complicated by port line rupture. 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 Also now documented 50% decline in hearing presumably from oxaliplatin also. -Tolerating FOLFIRI better with the addition of hydration on day 1 and 3. -No change in plan. Plan: -Okay for treatment tomorrow. -Plan hydration on day 1 and day 3. -Will add Emend day 1. Continue the addition of dexamethasone 4 mg twice a day on days 2 and 3. -CTs after 2 more cycles. 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 Plan: -Continue Xarelto. Sujit Vasquez DO CNOVSP Observed: 04/16/2018 Status: COMPLETED Source: [place] 10:30 AM [facility] REPOSITORY Visit (SP) Office ([place]) QUYNE COKER ([id number]) 1940 F T Date Time Provider Department 04/16/18 10:30 AM SUJIT VASQUEZ During your visit today, we recorded the following information about you: Temperature Pulse Blood pressure Weight 98.3 degrees 85/minute 115/66 97.1 kg Elisa Krishnamurthy JonathanjeanineJUAN, JUAN 04/16/2018 10:52 AM Signed Est pt., discuss recent lab results, tx tomorrow Elisa WeberJUAN Sujit Vasquez, DO 04/16/2018 10:59 AM Signed Diagnosis: 1) Metastatic colon cancer. KRAS - No variant detected [Reference sequence: (NM_004985.4)]. NRAS - No variant detected [Reference sequence: (NM_002524.4)]. BRAF - No variant detected [Reference sequence: (NM_004333.4)]. 2) DCIS. 3) IMV thrombus. 4) DVT. HPI: The patient is a 77 yo female with a PMH significant for hyperlipidemia, HTN, CAD (PR, CABG x2 2011; stent x1 2013), PVD (carotid artery stenosis s/p CEA left side 2012), sleep apnea (uses CPAP), arthritis (chronic lower back and from lower thoracic area to the neck pain). She developed rectal bleeding in March and underwent evaluation with EGD. Evidently that study was normal. Next underwent colonoscopy and was observed to have a tumor in the cecum. Had normal colonoscopy about 2 years prior. Underwent right hemicolectomy 07/28/2015. 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 Through muscularis propria into subserosal adipose tissue, but not extending to the serosal surface. All margins negative. No lymphovascular invasion. No perineural invasion. No tumor deposits. None of 14 nodes positive. No evidence MSI by IHC. Had screening mammogram 08/2015. Abnormality left breast. Dx mammo and US 09/06/2015. 6.5 x 7.9 mm nodular density with focal calcifications in fthe slightly upper lateral portion of the left breast. Underwent stereotactic core biopsy 09/15/2015. DCIS, cribriform and solid, grade 2, single cell necrosis; no invasive carcinoma. MRI of the breast 10/11/2015: Longitudinally oriented area of mild enhancement in the central left breast thought to be due to postbiopsy hemorrhage/inflammation. Tumor along this entire length is thought less likely but cannot be excluded. MRI of the abdomen and pelvis 10/13/2015: Liver: There is a large, heterogeneously enhancing mass within the entire lateral segment of the left hepatic lobe and extending into the medial segment as well. This mass measures approximately 8.2 x 5.8 x 6.3 cm. This is most consistent with neoplasm, perhaps metastatic given the patient's history of colonic carcinoma. No additional hepatic lesions are seen. There is patchy hepatic fatty change throughout the right hepatic lobe. Partial, nonocclusive thrombus within the superior mesenteric vein just cephalad to its 1st branch. Liver biopsy--consistent with colorectal primary. Patient received the fourth cycle chemotherapy on 12/22/2015. She developed profuse diarrhea and presented to the emergency department for dehydration and shortness of breath. She was found to be an RVR atrial fibrillation with significant hypomagnesemia. She was admitted and started on IV hydration and magnesium replacement as well as medical management of atrial fibrillation. The diarrhea however continued for several more days during which she was given supportive care. Following that she developed an episode of ileus which extend her hospital stay. She was eventually discharged to rehabilitation. This morning she underwent an ultrasound of both lower extremities. She was found to have an acute DVT in the right common femoral vein. Treated with apixaban. Underwent left-sided lumpectomy for DCIS. Specimen - partial breast Procedure - excision with wire-guided localization Lymph node sampling ? no lymph nodes present Specimen integrity - single intact specimen Specimen size ? 15 x 9 x 4 cm Specimen laterality ? left Tumor site ? not specified Size (extent) of DCIS ? 0.3 cm in greatest dimension. See comment. 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 Architectural pattern - cribriform Nuclear grade - grade 2 (intermediate) Necrosis ? not identified Margins ? margin uninvolved by ductal carcinoma in situ. The tumor is 2 cm away from the closest anterior and posterior margins Treatment effect - no known presurgical therapy. Lymph nodes ? not submitted Distant metastasis ? not replicable Additional Pathologic Findings ? fibrocystic changes. - Focal changes consistent with previous biopsy site. Previous therapy: 1) FOLFOX x1; FOLFOX with Vectibix x3. 2) Underwent left hepatectomy 04/28/2016. Final pathology reviewed. Positive margin was cauterized during surgery. 3) Xeloda after liver directed therapy. Started cycle #3 11/27/2016 through 02/2017. 4) Infusional 5-fluorouracil with oxaliplatin on diagnosis lung metastasis. Current therapy: 1) FOLFIRI. Presents for ongoing oncologic management. Interim history: Side effects remain stable--She has lightheadedness that last about an hour after she is unhooked from IV therapy on day 1. Then the evening she has some lightheadedness. With hydration on day 1 and 3 she's been doing much better overall secondary to lightheadedness. No palpitations. No shortness of breath at rest. No abdominal pain, bloating or distention. No diarrhea this past cycle. No mouth sores his past cycle. She has no respiratory symptoms including cough, sputum production wheezing. No history of hemoptysis. PMH, medications and allergies as below personally reviewed by me today. Any changes documented in appropriate section. ROS: Constitutional: Denies episodes of fever and night sweats. Neuro: See above.. HEENT: No recent change in voice, vision or hearing (significant b/l hearing loss--underwent audiogram early December 2017. Study showed a 50% decline in her hearing. Presumably this is from oxaliplatin.). Resp: See above. CVS: Denies exertional chest pain, PND, orthopnea. GI: See above. : No dysuria or gross hematuria. Stress incontinence--stable. Endo: Denies hot flashes. Denies polyuria and polydipsia. Denies heat and cold intolerance. Musculoskeletal: Denies bone, back, joint and muscular pain. Derm: Denies diffuse pruritis. Heme: No unusual bleeding and/or unexplained bruising. Psych: Normal mood. PHYSICAL EXAM: Vitals: Blood pressure 115/66, pulse 85, temperature 36.8 ?C (98.3 ?F), weight 97.1 kg (214 lb). Well-appearing and in no acute distress. EYES: Sclerae are anicteric bilaterally. NECK: Supple. No enlargement of thyroid. LYMPHATIC: There is no palpable cervical, supraclavicular adenopathy. RESPIRATORY: Inspiratory breath sounds are clear with no rhonchi or wheeze. CARDIOVASCULAR: Rhythm is irregular. ABDOMEN: The abdomen is nondistended and non-tender. No organomegaly. Extremities: Free of edema. SKIN: No jaundice or rash. No petechiae. NEUROLOGIC: foil cutter II-XII are grossly intact. No focal motor weakness. ASSESSMENT/PLAN: (C18.2) Malignant neoplasm of ascending colon (HCC) (primary encounter diagnosis) (C78.7) Liver metastasis (HCC) Assessment: -Patient had completed several months of capecitabine following resection for an isolated metastasis. She tolerated capecitabine only marginally and was on lower doses for the last couple cycles. She had marked difficulty with diarrhea, dehydration and several hospitalizations/ER visits for toxicity. However, lung nodule had been stable. 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 -First cycle was complicated by port line rupture. 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 Also now documented 50% decline in hearing presumably from oxaliplatin also. -Tolerating FOLFIRI better with the addition of hydration on day 1 and 3. -No change in plan. Plan: -Okay for treatment tomorrow. -Plan hydration on day 1 and day 3. -Will add Emend day 1. Continue the addition of dexamethasone 4 mg twice a day on days 2 and 3. -CTs after 2 more cycles. 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 Plan: -Continue Xarelto. Sujit Vasquez DO Referring Provider: SUJIT VASQUEZ [[id number]] Allergies As of Date: 04/16/2018 Noted Allergy Reaction CORGARD (NADOLOL) 07/21/2015 12 - Shortness of Breath PENN 07/21/2015 12 - Shortness of Breath MORPHINE 07/21/2015 12 - Shortness of Breath Comments: Pt says she can tolerate oxycodone. PENICILLINS 07/21/2015 12 - Shortness of Breath PERFUMES 12/07/2017 12 - Shortness of Breath PRAVACHOL (PRAVASTATIN) 07/21/2015 12 - Shortness of Breath SULFITE 07/21/2015 12 - Shortness of Breath Comments: Sulfites in food. Verified by refrigerator tester. ZOCOR (SIMVASTATIN) 07/21/2015 12 - Shortness of Breath Comments: Pt reports allergy to brand Zocor, tolerates generic. 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 (HCC) [C78.02] Mesenteric vein thrombosis [I81] Follow-up and Disposition History Recorded Prescriptions as of 04/16/2018 Sig: FUROSEMIDE 40 MG TABLET Take 40 mg by mouth once wilman* GLIMEPIRIDE 2 MG TABLET Take 2 mg by mouth daily with* DEXAMETHASONE 4 MG TABLET Take 1 tablet by mouth twice * OMEPRAZOLE 40 MG CAPSULE,MELODY* Take 1 capsule by mouth once * HYOSCYAMINE 0.125 MG DISINTEG* Dissolve 2 tablets under the * ONDANSETRON HCL 8 MG TABLET Take 1 tablet by mouth every * ACNQNWXUUMAZYIY-FEAHANA-TTRVO* Take 10 mL by mouth every 4 h* POTASSIUM CHLORIDE 20 MEQ ORA* Take 20 mEq by mouth once wyatt* RIVAROXABAN 15 MG TABLET Take 1 tablet by mouth daily * Patient taking differently: Take by mouth daily with dinn* LIDOCAINE-PRILOCAINE 2.5 %-2.* Apply 1 application to affect* SODIUM CHLORIDE 0.9% FLUSH Access implanted vascular acc* HEPARIN, PORCINE (PF) 100 UNI* Access implanted vascular acc* LOPERAMIDE 2 MG TABLET Take 2 mg by mouth as needed. SODIUM CHLORIDE 0.9% FLUSH Access implanted vascular acc* HEPARIN LOCK FLUSH (PORCINE) * Access implanted vascular acc* MONTELUKAST 10 MG TABLET Take 1 tablet by mouth daily * MAGNESIUM OXIDE 400 MG (241.3* Take 400 mg by mouth twice da* ACETAMINOPHEN 500 MG TABLET Take 1,000 mg by mouth as nee* DIPHENHYDRAMINE 25 MG TABLET Take 50 mg by mouth as needed. ISOSORBIDE MONONITRATE ER 60 * Take 60 mg by mouth once wilman* ASPIRIN 81 MG TABLET,DELAYED * Take 81 mg by mouth once wilman* METOPROLOL TARTRATE 50 MG TAB* Take 50 mg by mouth twice wyatt* LISINOPRIL 10 MG TABLET Take 10 mg by mouth once wilman* MOMETASONE 220 MCG (60 DOSES)* Inhale 1 Puff as instructed. CHOLECALCIFEROL (VITAMIN D3) * Take 1 tablet by mouth once d* SIMVASTATIN 40 MG TABLET Take 20 mg by mouth daily at * NITROGLYCERIN 0.3 MG SUBLINGU* Dissolve 0.3 mg under the ton* ALBUTEROL SULFATE HFA 90 MCG/* Inhale 2 Puffs as instructed * EPINEPHRINE 0.15 MG/0.15 ML I* by INJECTION(UNSPECIFIED PARE* LORATADINE 10 MG TABLET Take 10 mg by mouth as needed. FUROSEMIDE 20 MG TABLET Take 2 tablets by mouth twice* Medication notes this encounter FUROSEMIDE 20 MG TABLET >> Elisa Pritchettchristina Weber LPN, LPN 04/16/2018 10:19 AM >> ELISA WEBERchristina Apr 16, 2018 10:19 AM discontinued Problem List As Of Date 04/16/2018 Noted Resolved Malignant neoplasm of ascending colon (HCC) [C1*INVALID FOR* Abnormal mammogram of left breast [R92.8] INVALID FOR* 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] INVALID FOR* Abnormal magnetic resonance imaging of liver [R*INVALID FOR* Liver metastasis (HCC) [C78.7] INVALID FOR* Diabetes (HCC) [E11.9] INVALID FOR* Hearing loss [H91.90] INVALID FOR* Hypertension [I10] INVALID FOR* Hyperlipidemia [E78.5] INVALID FOR* Carotid artery disease (HCC) [I77.9] INVALID FOR* Coronary artery disease [I25.10] INVALID FOR* Asthma [J45.909] INVALID FOR* Sleep apnea [G47.30] INVALID FOR* Arthritis [M19.90] INVALID FOR* Fibromyalgia [M79.7] INVALID FOR* Atrial arrhythmia [I49.8] INVALID FOR* H/O degenerative disc disease [Z87.39] INVALID FOR* Spondylolysis [M43.00] INVALID FOR* Radiculopathy [M54.10] INVALID FOR* Eczema [L30.9] INVALID FOR* Anemia [D64.9] INVALID FOR* 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*INVALID FOR* Colon cancer (HCC) [C18.9] Hypotension due to drugs [I95.2] INVALID FOR* Orthostasis [I95.1] INVALID FOR* Nausea [R11.0] INVALID FOR* Anemia due to antineoplastic chemotherapy [D64.*INVALID FOR* CKD (chronic kidney disease) stage 3, GFR 30-59*INVALID FOR* Dehydration [E86.0] INVALID FOR* Malignant neoplasm metastatic to left lung (HCC*INVALID FOR* Visit Notes: >> Elisa Krishnamurthy (Rail Doweling Machine Operator) JUAN Weber christina Apr 16, 2018 10:22 AM Status: Signed Est pt., discuss recent lab results, tx tomorrow Elisa Weber LPN Encounter Status:Closed by SUJIT VASQUEZ DO on 04/16/18 COMP METABOLIC PANEL Collected: 04/16/2018 Status: F Source: [place] 10:19 [facility] REPOS[facility] TYPE CODE TESTS RESULT OUT OF REFERENCE UNITS RANGE LAB TP 6.3-8.0 g/dL Low Protein, Total 6.1 LAB ALB 3.9-4.9 g/dL Low Albumin 3.7 LAB CA 8.5-10.2 mg/dL Calcium, Total 8.9 LAB TBIL 0.2-1.3 mg/dL Bilirubin, Total 0.4 LAB ALKP 32-117 U/L Alkaline High Phosphatase 139 LAB AST 13-35 U/L AST 32 LAB GLU 74-99 mg/dL Glucose High 242 Result Comment: The [place] Diabetes Association (ADA) provides guidance for cutoff values for fasting glucose and random glucose. The ADA defines fasting as no caloric intake for at least 8 hours. Fas ting plasma glucose results between 100 to 125 mg/dL indicate increased risk for diabetes (prediabetes). Fasting plasma glucose results greater than or equal to 126 mg/dL meet the criteria for diagnosis of diabetes. In the absence of unequivocal hyperglycemia, results should be confirmed by repeat testing. In a patient with classic symptoms of hyperglycemia or hyperglycemic crisis, random plasma glucose results greater than or equal to 200 mg/dL meet the criteria for diagnosis of diabetes. Reference: Standards of Medical Care in Diabetes 2016, British Diabetes Association. Diabetes Care. 2016.39(Suppl 1). LAB BUN 7-21 mg/dL BUN High 23 LAB CRET 0.58-0.96 mg/dL Creatinine High 1.08 LAB NA 136-144 mmol/L Sodium 139 LAB K 3.7-5.1 mmol/L Potassium 4.0 LAB CL 97-105 mmol/L Chloride 102 LAB CO2 22-30 mmol/L CO2 22 LAB AGAP 9-18 mmol/L Anion Gap 15 LAB ALT 7-38 U/L ALT 33 LAB GFRAA eGFR- Amer. 60 LAB GFRNAA . eGFR-All Other Races 49 Result Comment: eGFR (Estimated GFR) Units of measure: mL/min/1.73 meters squared eGFR is derived from the reexpressed MDRD Study equation using the following parameters: serum creatinine, age, gender and race. The creatinine assay has been calibrated to be traceable to IDMS. An eGFR <60 mL/min/1.73m2 for >3 months is consistent with chronic kidney disease. Refer to KDOQI guidelines for clinical interpretation. In patients with unstable renal function, e.g. those with acute kidney injury, the eGFR may not accurately reflect actual GFR. Performed By: #### CMP, CEA #### [facility] [address] [id number] CEA Collected: 04/16/2018 Status: F Source: [place] 10:19 AM [facility] REPOSITORY TYPE CODE TESTS RESULT OUT OF RANGE REFERENCE UNITS LAB CEA 0.0-2.9 ng/mL High CEA 6.4 Result Comment: Test analyzed by the [place] DxI method. Performed By: #### CMP, CEA #### [facility] [address] [id number] KELLEN ABS GR + CBC Collected: 04/16/2018 Status: F Source: [place] 10:18 AM [facility] REPOSITORY TYPE CODE TESTS RESULT OUT OF REFERENCE UNITS RANGE LAB WWBC 3.70-11.00 k/uL Low [place] WBC 3.36 LAB WRBC 3.90-5.20 m/uL Low [place] RBC 3.45 LAB WHGB 11.5-15.5 g/dL Low [place] Hemoglobin 11.0 LAB WHCT 36.0-46.0 % Low [place] Hematocrit 34.7 LAB WMCV 80.0-100.0 fL [place] High MCV 100.6 LAB WMCH 26.0-34.0 pg [place] MCH 31.9 LAB WMCHC 30.5-36.0 g/dL [place] MCHC 31.7 LAB WRDW 11.5-15.0 % [place] High RDW 16.0 LAB WPLT 150-400 k/uL [place] Platelet Cnt 164 LAB WMPV 9.0-12.7 fL [place] MPV 9.6 Result Comment: Test performed at: [address] [place] [address]. LAB ABGRAN 1.45-7.50 k/uL Absol Gran 2.11 Count PROGRESS Observed: 04/02/2018 Status: COMPLETED Source: [place] 8:34 AM [facility] REPOSITORY HNO ID: [id number] Author: Sujit Vasquez Service: (none) Author Type: Physician Type: Progress Notes Filed: 04/02/2018 8:47 AM Note Text: Diagnosis: 1) Metastatic colon cancer. KRAS - No variant detected [Reference sequence: ([id number])]. NRAS - No variant detected [Reference sequence: ([id number])]. BRAF - No variant detected [Reference sequence: ([id number])]. 2) DCIS. 3) IMV thrombus. 4) DVT. HPI: The patient is a 77 yo female with a PMH significant for hyperlipidemia, HTN, CAD (PR, CABG x2 2011; stent x1 2013), PVD (carotid artery stenosis s/p CEA left side 2012), sleep apnea (uses CPAP), arthritis (chronic lower back and from lower thoracic area to the neck pain). She developed rectal bleeding in March and underwent evaluation with EGD. Evidently that study was normal. Next underwent colonoscopy and was observed to have a tumor in the cecum. Had normal colonoscopy about 2 years prior. Underwent right hemicolectomy 07/28/2015. 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 Through muscularis propria into subserosal adipose tissue, but not extending to the serosal surface. All margins negative. No lymphovascular invasion. No perineural invasion. No tumor deposits. None of 14 nodes positive. No evidence MSI by IHC. Had screening mammogram 08/2015. Abnormality left breast. Dx mammo and US 09/06/2015. 6.5 x 7.9 mm nodular density with focal calcifications in fthe slightly upper lateral portion of the left breast. Underwent stereotactic core biopsy 09/15/2015. DCIS, cribriform and solid, grade 2, single cell necrosis; no invasive carcinoma. MRI of the breast 10/11/2015: Longitudinally oriented area of mild enhancement in the central left breast thought to be due to postbiopsy hemorrhage/inflammation. Tumor along this entire length is thought less likely but cannot be excluded. MRI of the abdomen and pelvis 10/13/2015: Liver: There is a large, heterogeneously enhancing mass within the entire lateral segment of the left hepatic lobe and extending into the medial segment as well. This mass measures approximately 8.2 x 5.8 x 6.3 cm. This is most consistent with neoplasm, perhaps metastatic given the patient's history of colonic carcinoma. No additional hepatic lesions are seen. There is patchy hepatic fatty change throughout the right hepatic lobe. Partial, nonocclusive thrombus within the superior mesenteric vein just cephalad to its 1st branch. Liver biopsy--consistent with colorectal primary. Patient received the fourth cycle chemotherapy on 12/22/2015. She developed profuse diarrhea and presented to the emergency department for dehydration and shortness of breath. She was found to be an RVR atrial fibrillation with significant hypomagnesemia. She was admitted and started on IV hydration and magnesium replacement as well as medical management of atrial fibrillation. The diarrhea however continued for several more days during which she was given supportive care. Following that she developed an episode of ileus which extend her hospital stay. She was eventually discharged to rehabilitation. This morning she underwent an ultrasound of both lower extremities. She was found to have an acute DVT in the right common femoral vein. Treated with apixaban. Underwent left-sided lumpectomy for DCIS. Specimen - partial breast Procedure - excision with wire-guided localization Lymph node sampling ? no lymph nodes present Specimen integrity - single intact specimen Specimen size ? 15 x 9 x 4 cm Specimen laterality ? left Tumor site ? not specified Size (extent) of DCIS ? 0.3 cm in greatest dimension. See comment. 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 Architectural pattern - cribriform Nuclear grade - grade 2 (intermediate) Necrosis ? not identified Margins ? margin uninvolved by ductal carcinoma in situ. The tumor is 2 cm away from the closest anterior and posterior margins Treatment effect - no known presurgical therapy. Lymph nodes ? not submitted Distant metastasis ? not replicable Additional Pathologic Findings ? fibrocystic changes. - Focal changes consistent with previous biopsy site. Previous therapy: 1) FOLFOX x1; FOLFOX with Vectibix x3. 2) Underwent left hepatectomy 04/28/2016. Final pathology reviewed. Positive margin was cauterized during surgery. 3) Xeloda after liver directed therapy. Started cycle #3 11/27/2016 through 02/2017. 4) Infusional 5-fluorouracil with oxaliplatin on diagnosis lung metastasis. Current therapy: 1) FOLFIRI. Presents for ongoing oncologic management. Interim history: Overall, side effects have been stable. She has lightheadedness that last about an hour after she is unhooked from IV therapy on day 1. Then the evening she has some lightheadedness. She requires her cane during that time. Otherwise with hydration on day 1 and 3 she's been doing much better overall secondary to lightheadedness. No palpitations. No shortness of breath at rest. No abdominal pain, bloating or distention. No diarrhea this past cycle. No mouth sores his past cycle. She has no respiratory symptoms including cough, sputum production wheezing. No history of hemoptysis. PMH, medications and allergies as below personally reviewed by me today. Any changes documented in appropriate section. ROS: Constitutional: Denies episodes of fever and night sweats. Neuro: See above.. HEENT: No recent change in voice, vision or hearing (significant b/l hearing loss--underwent audiogram early December 2017. Study showed a 50% decline in her hearing. Presumably this is from oxaliplatin.). Resp: See above. CVS: Denies exertional chest pain, PND, orthopnea. GI: See above. : No dysuria or gross hematuria. Stress incontinence--stable. Endo: Denies hot flashes. Denies polyuria and polydipsia. Denies heat and cold intolerance. Musculoskeletal: Denies bone, back, joint and muscular pain. Derm: Denies diffuse pruritis. Heme: No unusual bleeding and/or unexplained bruising. Psych: Normal mood. PHYSICAL EXAM: Vitals: Blood pressure 115/58, pulse 72, temperature 37.1 ?C (98.8 ?F), weight 97.5 kg (215 lb). Well-appearing and in no acute distress. EYES: Sclerae are anicteric bilaterally. NECK: Supple. No enlargement of thyroid. LYMPHATIC: There is no palpable cervical, supraclavicular adenopathy. RESPIRATORY: Inspiratory breath sounds are clear with no rhonchi or wheeze. CARDIOVASCULAR: Rhythm is irregular. ABDOMEN: The abdomen is nondistended and non-tender. No organomegaly. Extremities: Free of edema. SKIN: No jaundice or rash. No petechiae. NEUROLOGIC: foil cutter II-XII are grossly intact. No focal motor weakness. ASSESSMENT/PLAN: (C18.2) Malignant neoplasm of ascending colon (HCC) (primary encounter diagnosis) (C78.7) Liver metastasis (HCC) Assessment: -Patient had completed several months of capecitabine following resection for an isolated metastasis. She tolerated capecitabine only marginally and was on lower doses for the last couple cycles. She had marked difficulty with diarrhea, dehydration and several hospitalizations/ER visits for toxicity. However, lung nodule had been stable. 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 -First cycle was complicated by port line rupture. 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 Also now documented 50% decline in hearing presumably from oxaliplatin also. -Tolerating FOLFIRI better with the addition of hydration on day 1 and 3. -Reviewed KP questions. No significant distress presently. Plan: -Okay for treatment tomorrow. -Plan hydration on day 1 and day 3. -Will add Emend day 1. Continue the addition of dexamethasone 4 mg twice a day on days 2 and 3. -CTs after 3 more cycles. 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 Plan: -Continue Xarelto. Sujit Vasquez DO CNOVSP Observed: 04/02/2018 Status: COMPLETED Source: [place] 8:30 AM [facility] REPOSITORY Visit (SP) Office ([place]) SHEELAQUYEN ([id number]) 1940 [address] [facility] Date Time Provider Department 04/02/18 8:30 AM SUJIT VASQUEZ During your visit today, we recorded the following information about you: Temperature Pulse Blood pressure Weight 98.8 degrees 72/minute 115/58 97.5 kg Elisa Weber, JUAN, UX MANAGER 04/02/2018 8:37 AM Signed Est pt, discuss recent lab results, tx tomorrow Elisa Krishnamurthy Tai, JUAN Sujit Vasquez, DO 04/02/2018 8:47 AM Signed Diagnosis: 1) Metastatic colon cancer. KRAS - No variant detected [Reference sequence: (NM_[id number])]. NRAS - No variant detected [Reference sequence: ([id number])]. BRAF - No variant detected [Reference sequence: (NM_[id number])]. 2) DCIS. 3) IMV thrombus. 4) DVT. HPI: The patient is a 77 yo female with a PMH significant for hyperlipidemia, HTN, CAD (PR, CABG x2 2011; stent x1 2013), PVD (carotid artery stenosis s/p CEA left side 2012), sleep apnea (uses CPAP), arthritis (chronic lower back and from lower thoracic area to the neck pain). She developed rectal bleeding in March and underwent evaluation with EGD. Evidently that study was normal. Next underwent colonoscopy and was observed to have a tumor in the cecum. Had normal colonoscopy about 2 years prior. Underwent right hemicolectomy 07/28/2015. 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 Through muscularis propria into subserosal adipose tissue, but not extending to the serosal surface. All margins negative. No lymphovascular invasion. No perineural invasion. No tumor deposits. None of 14 nodes positive. No evidence MSI by IHC. Had screening mammogram 08/2015. Abnormality left breast. Dx mammo and US 09/06/2015. 6.5 x 7.9 mm nodular density with focal calcifications in fthe slightly upper lateral portion of the left breast. Underwent stereotactic core biopsy 09/15/2015. DCIS, cribriform and solid, grade 2, single cell necrosis; no invasive carcinoma. MRI of the breast 10/11/2015: Longitudinally oriented area of mild enhancement in the central left breast thought to be due to postbiopsy hemorrhage/inflammation. Tumor along this entire length is thought less likely but cannot be excluded. MRI of the abdomen and pelvis 10/13/2015: Liver: There is a large, heterogeneously enhancing mass within the entire lateral segment of the left hepatic lobe and extending into the medial segment as well. This mass measures approximately 8.2 x 5.8 x 6.3 cm. This is most consistent with neoplasm, perhaps metastatic given the patient's history of colonic carcinoma. No additional hepatic lesions are seen. There is patchy hepatic fatty change throughout the right hepatic lobe. Partial, nonocclusive thrombus within the superior mesenteric vein just cephalad to its 1st branch. Liver biopsy--consistent with colorectal primary. Patient received the fourth cycle chemotherapy on 12/22/2015. She developed profuse diarrhea and presented to the emergency department for dehydration and shortness of breath. She was found to be an RVR atrial fibrillation with significant hypomagnesemia. She was admitted and started on IV hydration and magnesium replacement as well as medical management of atrial fibrillation. The diarrhea however continued for several more days during which she was given supportive care. Following that she developed an episode of ileus which extend her hospital stay. She was eventually discharged to rehabilitation. This morning she underwent an ultrasound of both lower extremities. She was found to have an acute DVT in the right common femoral vein. Treated with apixaban. Underwent left-sided lumpectomy for DCIS. Specimen - partial breast Procedure - excision with wire-guided localization Lymph node sampling ? no lymph nodes present Specimen integrity - single intact specimen Specimen size ? 15 x 9 x 4 cm Specimen laterality ? left Tumor site ? not specified Size (extent) of DCIS ? 0.3 cm in greatest dimension. See comment. 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 Architectural pattern - cribriform Nuclear grade - grade 2 (intermediate) Necrosis ? not identified Margins ? margin uninvolved by ductal carcinoma in situ. The tumor is 2 cm away from the closest anterior and posterior margins Treatment effect - no known presurgical therapy. Lymph nodes ? not submitted Distant metastasis ? not replicable Additional Pathologic Findings ? fibrocystic changes. - Focal changes consistent with previous biopsy site. Previous therapy: 1) FOLFOX x1; FOLFOX with Vectibix x3. 2) Underwent left hepatectomy 04/28/2016. Final pathology reviewed. Positive margin was cauterized during surgery. 3) Xeloda after liver directed therapy. Started cycle #3 11/27/2016 through 02/2017. 4) Infusional 5-fluorouracil with oxaliplatin on diagnosis lung metastasis. Current therapy: 1) FOLFIRI. Presents for ongoing oncologic management. Interim history: Overall, side effects have been stable. She has lightheadedness that last about an hour after she is unhooked from IV therapy on day 1. Then the evening she has some lightheadedness. She requires her cane during that time. Otherwise with hydration on day 1 and 3 she's been doing much better overall secondary to lightheadedness. No palpitations. No shortness of breath at rest. No abdominal pain, bloating or distention. No diarrhea this past cycle. No mouth sores his past cycle. She has no respiratory symptoms including cough, sputum production wheezing. No history of hemoptysis. PMH, medications and allergies as below personally reviewed by me today. Any changes documented in appropriate section. ROS: Constitutional: Denies episodes of fever and night sweats. Neuro: See above.. HEENT: No recent change in voice, vision or hearing (significant b/l hearing loss--underwent audiogram early December 2017. Study showed a 50% decline in her hearing. Presumably this is from oxaliplatin.). Resp: See above. CVS: Denies exertional chest pain, PND, orthopnea. GI: See above. : No dysuria or gross hematuria. Stress incontinence--stable. Endo: Denies hot flashes. Denies polyuria and polydipsia. Denies heat and cold intolerance. Musculoskeletal: Denies bone, back, joint and muscular pain. Derm: Denies diffuse pruritis. Heme: No unusual bleeding and/or unexplained bruising. Psych: Normal mood. PHYSICAL EXAM: Vitals: Blood pressure 115/58, pulse 72, temperature 37.1 ?C (98.8 ?F), weight 97.5 kg (215 lb). Well-appearing and in no acute distress. EYES: Sclerae are anicteric bilaterally. NECK: Supple. No enlargement of thyroid. LYMPHATIC: There is no palpable cervical, supraclavicular adenopathy. RESPIRATORY: Inspiratory breath sounds are clear with no rhonchi or wheeze. CARDIOVASCULAR: Rhythm is irregular. ABDOMEN: The abdomen is nondistended and non-tender. No organomegaly. Extremities: Free of edema. SKIN: No jaundice or rash. No petechiae. NEUROLOGIC: foil cutter II-XII are grossly intact. No focal motor weakness. ASSESSMENT/PLAN: (C18.2) Malignant neoplasm of ascending colon (HCC) (primary encounter diagnosis) (C78.7) Liver metastasis (HCC) Assessment: -Patient had completed several months of capecitabine following resection for an isolated metastasis. She tolerated capecitabine only marginally and was on lower doses for the last couple cycles. She had marked difficulty with diarrhea, dehydration and several hospitalizations/ER visits for toxicity. However, lung nodule had been stable. 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 -First cycle was complicated by port line rupture. 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 Also now documented 50% decline in hearing presumably from oxaliplatin also. -Tolerating FOLFIRI better with the addition of hydration on day 1 and 3. -Reviewed KP questions. No significant distress presently. Plan: -Okay for treatment tomorrow. -Plan hydration on day 1 and day 3. -Will add Emend day 1. Continue the addition of dexamethasone 4 mg twice a day on days 2 and 3. -CTs after 3 more cycles. 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 Plan: -Continue Xarelto. Sujit Vasquez DO Referring Provider: SUJIT VASQUEZ [[id number]] Allergies As of Date: 04/02/2018 Noted Allergy Reaction CORGARD (NADOLOL) 07/21/2015 12 - Shortness of Breath PENN 07/21/2015 12 - Shortness of Breath MORPHINE 07/21/2015 12 - Shortness of Breath Comments: Pt says she can tolerate oxycodone. PENICILLINS 07/21/2015 12 - Shortness of Breath PERFUMES 12/07/2017 12 - Shortness of Breath PRAVACHOL (PRAVASTATIN) 07/21/2015 12 - Shortness of Breath SULFITE 07/21/2015 12 - Shortness of Breath Comments: Sulfites in food. Verified by refrigerator tester. ZOCOR (SIMVASTATIN) 07/21/2015 12 - Shortness of Breath Comments: Pt reports allergy to brand Zocor, tolerates generic. 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) [C78.02] Mesenteric vein thrombosis [I81] Follow-up and Disposition History Recorded Prescriptions as of 04/02/2018 Sig: DEXAMETHASONE 4 MG TABLET Take 1 tablet by mouth twice * OMEPRAZOLE 40 MG CAPSULE,MELODY* Take 1 capsule by mouth once * HYOSCYAMINE 0.125 MG DISINTEG* Dissolve 2 tablets under the * ONDANSETRON HCL 8 MG TABLET Take 1 tablet by mouth every * DDTQVDLHIGJSYVS-AJTNIZN-PIYVB* Take 10 mL by mouth every 4 h* POTASSIUM CHLORIDE 20 MEQ ORA* Take 20 mEq by mouth once wyatt* RIVAROXABAN 15 MG TABLET Take 1 tablet by mouth daily * Patient taking differently: Take by mouth daily with dinn* LIDOCAINE-PRILOCAINE 2.5 %-2.* Apply 1 application to affect* SODIUM CHLORIDE 0.9% FLUSH Access implanted vascular acc* HEPARIN, PORCINE (PF) 100 UNI* Access implanted vascular acc* LOPERAMIDE 2 MG TABLET Take 2 mg by mouth as needed. SODIUM CHLORIDE 0.9% FLUSH Access implanted vascular acc* HEPARIN LOCK FLUSH (PORCINE) * Access implanted vascular acc* FUROSEMIDE 20 MG TABLET Take 2 tablets by mouth twice* MONTELUKAST 10 MG TABLET Take 1 tablet by mouth daily * MAGNESIUM OXIDE 400 MG TABLET Take 400 mg by mouth twice da* ACETAMINOPHEN 500 MG TABLET Take 1,000 mg by mouth as nee* DIPHENHYDRAMINE 25 MG TABLET Take 50 mg by mouth as needed. ISOSORBIDE MONONITRATE ER 60 * Take 60 mg by mouth once wilman* ASPIRIN 81 MG TABLET,DELAYED * Take 81 mg by mouth once wilman* METOPROLOL TARTRATE 50 MG TAB* Take 50 mg by mouth twice wyatt* LISINOPRIL 10 MG TABLET Take 10 mg by mouth once wilman* MOMETASONE 220 MCG (60 DOSES)* Inhale 1 Puff as instructed. CHOLECALCIFEROL (VITAMIN D3) * Take 1 tablet by mouth once d* SIMVASTATIN 40 MG TABLET Take 20 mg by mouth daily at * NITROGLYCERIN 0.3 MG SUBLINGU* Dissolve 0.3 mg under the ton* ALBUTEROL SULFATE HFA 90 MCG/* Inhale 2 Puffs as instructed * EPINEPHRINE 0.15 MG/0.15 ML I* by INJECTION(UNSPECIFIED PARE* LORATADINE 10 MG TABLET Take 10 mg by mouth as needed. Problem List As Of Date 04/02/2018 Noted Resolved Malignant neoplasm of ascending colon (HCC) [C1*INVALID FOR* Abnormal mammogram of left breast [R92.8] INVALID FOR* 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] INVALID FOR* Abnormal magnetic resonance imaging of liver [R*INVALID FOR* Liver metastasis (HCC) [C78.7] INVALID FOR* Diabetes (HCC) [E11.9] INVALID FOR* Hearing loss [H91.90] INVALID FOR* Hypertension [I10] INVALID FOR* Hyperlipidemia [E78.5] INVALID FOR* Carotid artery disease (HCC) [I77.9] INVALID FOR* Coronary artery disease [I25.10] INVALID FOR* Asthma [J45.909] INVALID FOR* Sleep apnea [G47.30] INVALID FOR* Arthritis [M19.90] INVALID FOR* Fibromyalgia [M79.7] INVALID FOR* Atrial arrhythmia [I49.8] INVALID FOR* H/O degenerative disc disease [Z87.39] INVALID FOR* Spondylolysis [M43.00] INVALID FOR* Radiculopathy [M54.10] INVALID FOR* Eczema [L30.9] INVALID FOR* Anemia [D64.9] INVALID FOR* 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*INVALID FOR* Colon cancer (HCC) [C18.9] Hypotension due to drugs [I95.2] INVALID FOR* Orthostasis [I95.1] INVALID FOR* Nausea [R11.0] INVALID FOR* Anemia due to antineoplastic chemotherapy [D64.*INVALID FOR* CKD (chronic kidney disease) stage 3, GFR 30-59*INVALID FOR* Dehydration [E86.0] INVALID FOR* Malignant neoplasm metastatic to left lung (HCC*INVALID FOR* Visit Notes: >> Elisa Weber LPN christina Apr 02, 2018 8:27 AM Status: Signed Est pt, discuss recent lab results, tx tomorrow Elisa Weber LPN Encounter Status:Closed by SUJIT VASQUEZ DO on 04/02/18 [facility] ABS GR + CBC Collected: 04/02/2018 Status: F Source: [place] 8:23 [facility] REPOSITORY TYPE CODE TESTS RESULT OUT OF REFERENCE UNITS RANGE LAB WWBC 3.70-11.00 k/uL Low [place] WBC 3.29 LAB WRBC 3.90-5.20 m/uL Low [place] RBC 3.38 LAB WHGB 11.5-15.5 g/dL Low [place] Hemoglobin 10.9 LAB WHCT 36.0-46.0 % Low [place] Hematocrit 34.1 LAB WMCV 80.0-100.0 fL [place] High MCV 100.9 LAB WMCH 26.0-34.0 pg [place] MCH 32.2 LAB WMCHC 30.5-36.0 g/dL [place] MCHC 32.0 LAB WRDW 11.5-15.0 % [place] High RDW 15.8 LAB WPLT 150-400 k/uL Low [place] Platelet Cnt 147 LAB WMPV 9.0-12.7 fL [place] MPV 9.1 Result Comment: Test performed at: [facility], [address] [place] [address] Rd[address] [place] [address]. LAB ABGRAN 1.45-7.50 k/uL Absol Gran 1.71 Count COMP METABOLIC PANEL Collected: 04/02/2018 Status: F Source: [place] 8:23 AM [facility] REPOSITORY TYPE CODE TESTS RESULT OUT OF REFERENCE UNITS RANGE LAB TP 6.3-8.0 g/dL Protein, Total 6.3 LAB ALB 3.9-4.9 g/dL Low Albumin 3.7 LAB CA 8.5-10.2 mg/dL Calcium, Total 9.4 LAB TBIL 0.2-1.3 mg/dL Bilirubin, Total 0.4 LAB ALKP 32-117 U/L Alkaline High Phosphatase 158 LAB AST 13-35 U/L AST 35 LAB GLU 74-99 mg/dL Glucose High 215 Result Comment: The [employer] Diabetes Association (ADA) provides guidance for cutoff values for fasting glucose and random glucose. The ADA defines fasting as no caloric intake for at least 8 hours. Fas ting plasma glucose results between 100 to 125 mg/dL indicate increased risk for diabetes (prediabetes). Fasting plasma glucose results greater than or equal to 126 mg/dL meet the criteria for diagnosis of diabetes. In the absence of unequivocal hyperglycemia, results should be confirmed by repeat testing. In a patient with classic symptoms of hyperglycemia or hyperglycemic crisis, random plasma glucose results greater than or equal to 200 mg/dL meet the criteria for diagnosis of diabetes. Reference: Standards of Medical Care in Diabetes 2016, British Diabetes Association. Diabetes Care. 2016.39(Suppl 1). LAB BUN 7-21 mg/dL BUN High 23 LAB CRET 0.58-0.96 mg/dL Creatinine High 1.21 LAB NA 136-144 mmol/L Sodium 137 LAB K 3.7-5.1 mmol/L Potassium 4.2 LAB CL 97-105 mmol/L Chloride 99 LAB CO2 22-30 mmol/L CO2 23 LAB AGAP 9-18 mmol/L Anion Gap 15 LAB ALT 7-38 U/L ALT 37 LAB GFRAA eGFR- Amer. 52 LAB GFRNAA . eGFR-All Other Races 43 Result Comment: eGFR (Estimated GFR) Units of measure: mL/min/1.73 meters squared eGFR is derived from the reexpressed MDRD Study equation using the following parameters: serum creatinine, age, gender and race. The creatinine assay has been calibrated to be traceable to IDMS. An eGFR <60 mL/min/1.73m2 for >3 months is consistent with chronic kidney disease. Refer to KDOQI guidelines for clinical interpretation. In patients with unstable renal function, e.g. those with acute kidney injury, the eGFR may not accurately reflect actual GFR. Performed By: #### CMP, CEA #### [facility] [address] [place], [place] [address] CEA Collected: 04/02/2018 Status: F Source: [place] 8:23 AM [facility] REPOSITORY TYPE CODE TESTS RESULT OUT OF RANGE REFERENCE UNITS LAB CEA 0.0-2.9 ng/mL High CEA 5.7 Result Comment: Test analyzed by the Nicholas DxI method. Performed By: #### CMP, CEA #### [facility] [address] [place], [place] [address] PROGRESS Observed: 03/18/2018 Status: COMPLETED Source: [place] 9:40 AM [facility] REPOSITORY HNO ID: [id number] Author: Sujit Vasquez Service: (none) Author Type: Physician Type: Progress Notes Filed: 03/18/2018 9:57 AM Note Text: Diagnosis: 1) Metastatic colon cancer. KRAS - No variant detected [Reference sequence: ([id number])]. NRAS - No variant detected [Reference sequence: ([id number])]. BRAF - No variant detected [Reference sequence: ([id number])]. 2) DCIS. 3) IMV thrombus. 4) DVT. HPI: The patient is a 77 yo female with a PMH significant for hyperlipidemia, HTN, CAD (PR, CABG x2 2011; stent x1 2013), PVD (carotid artery stenosis s/p CEA left side 2012), sleep apnea (uses CPAP), arthritis (chronic lower back and from lower thoracic area to the neck pain). She developed rectal bleeding in March and underwent evaluation with EGD. Evidently that study was normal. Next underwent colonoscopy and was observed to have a tumor in the cecum. Had normal colonoscopy about 2 years prior. Underwent right hemicolectomy 07/28/2015. 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 Through muscularis propria into subserosal adipose tissue, but not extending to the serosal surface. All margins negative. No lymphovascular invasion. No perineural invasion. No tumor deposits. None of 14 nodes positive. No evidence MSI by IHC. Had screening mammogram 08/2015. Abnormality left breast. Dx mammo and US 09/06/2015. 6.5 x 7.9 mm nodular density with focal calcifications in fthe slightly upper lateral portion of the left breast. Underwent stereotactic core biopsy 09/15/2015. DCIS, cribriform and solid, grade 2, single cell necrosis; no invasive carcinoma. MRI of the breast 10/11/2015: Longitudinally oriented area of mild enhancement in the central left breast thought to be due to postbiopsy hemorrhage/inflammation. Tumor along this entire length is thought less likely but cannot be excluded. MRI of the abdomen and pelvis 10/13/2015: Liver: There is a large, heterogeneously enhancing mass within the entire lateral segment of the left hepatic lobe and extending into the medial segment as well. This mass measures approximately 8.2 x 5.8 x 6.3 cm. This is most consistent with neoplasm, perhaps metastatic given the patient's history of colonic carcinoma. No additional hepatic lesions are seen. There is patchy hepatic fatty change throughout the right hepatic lobe. Partial, nonocclusive thrombus within the superior mesenteric vein just cephalad to its 1st branch. Liver biopsy--consistent with colorectal primary. Patient received the fourth cycle chemotherapy on 12/22/2015. She developed profuse diarrhea and presented to the emergency department for dehydration and shortness of breath. She was found to be an RVR atrial fibrillation with significant hypomagnesemia. She was admitted and started on IV hydration and magnesium replacement as well as medical management of atrial fibrillation. The diarrhea however continued for several more days during which she was given supportive care. Following that she developed an episode of ileus which extend her hospital stay. She was eventually discharged to rehabilitation. This morning she underwent an ultrasound of both lower extremities. She was found to have an acute DVT in the right common femoral vein. Treated with apixaban. Underwent left-sided lumpectomy for DCIS. Specimen - partial breast Procedure - excision with wire-guided localization Lymph node sampling ? no lymph nodes present Specimen integrity - single intact specimen Specimen size ? 15 x 9 x 4 cm Specimen laterality ? left Tumor site ? not specified Size (extent) of DCIS ? 0.3 cm in greatest dimension. See comment. 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 Architectural pattern - cribriform Nuclear grade - grade 2 (intermediate) Necrosis ? not identified Margins ? margin uninvolved by ductal carcinoma in situ. The tumor is 2 cm away from the closest anterior and posterior margins Treatment effect - no known presurgical therapy. Lymph nodes ? not submitted Distant metastasis ? not replicable Additional Pathologic Findings ? fibrocystic changes. - Focal changes consistent with previous biopsy site. Previous therapy: 1) FOLFOX x1; FOLFOX with Vectibix x3. 2) Underwent left hepatectomy 04/28/2016. Final pathology reviewed. Positive margin was cauterized during surgery. 3) Xeloda after liver directed therapy. Started cycle #3 11/27/2016 through 02/2017. 4) Infusional 5-fluorouracil with oxaliplatin on diagnosis lung metastasis. Current therapy: 1) FOLFIRI. Presents for ongoing oncologic management. Interim history: She continues to do reasonably well with chemotherapy. This past cycle she had a little more persistent nausea on day 2 and 3. She used dexamethasone. She didn't feel like it helped his much as it did the previous cycle. After that nausea subsides. Her appetite returns to normal. She's not had any significant diarrhea. Mild symptoms of stomatitis about mid cycle but this doesn't prevent her from eating. No rash. She's not been troubled by cough, wheeze or sputum production. No shortness of breath at rest. No episodes of jaundice. PMH, medications and allergies as below personally reviewed by me today. Any changes documented in appropriate section. ROS: Constitutional: Denies episodes of fever and night sweats. Neuro: See above.. HEENT: No recent change in voice, vision or hearing (significant b/l hearing loss--underwent audiogram early December 2017. Study showed a 50% decline in her hearing. Presumably this is from oxaliplatin.). Resp: See above. CVS: Denies exertional chest pain, PND, orthopnea. GI: See above. : No dysuria or gross hematuria. Stress incontinence--stable. Endo: Denies hot flashes. Denies polyuria and polydipsia. Denies heat and cold intolerance. Musculoskeletal: Denies bone, back, joint and muscular pain. Derm: Denies diffuse pruritis. Heme: No unusual bleeding and/or unexplained bruising. Psych: Normal mood. PHYSICAL EXAM: Vitals: Blood pressure 114/56, pulse 73, temperature 36.5 ?C (97.7 ?F), temperature source Temporal Artery, weight 98.4 kg (217 lb). Well-appearing and in no acute distress. EYES: Sclerae are anicteric bilaterally. NECK: Supple. No enlargement of thyroid. LYMPHATIC: There is no palpable cervical, supraclavicular adenopathy. RESPIRATORY: Inspiratory breath sounds are clear with no rhonchi or wheeze. CARDIOVASCULAR: Rhythm is irregular. ABDOMEN: The abdomen is nondistended and non-tender. Extremities: Free of edema. SKIN: No jaundice or rash. No petechiae. NEUROLOGIC: foil cutter II-XII are grossly intact. No focal motor weakness. ASSESSMENT/PLAN: (C18.2) Malignant neoplasm of ascending colon (HCC) (primary encounter diagnosis) (C78.7) Liver metastasis (HCC) Assessment: -Patient had completed several months of capecitabine following resection for an isolated metastasis. She tolerated capecitabine only marginally and was on lower doses for the last couple cycles. She had marked difficulty with diarrhea, dehydration and several hospitalizations/ER visits for toxicity. However, lung nodule had been stable. 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 -First cycle was complicated by port line rupture. 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 Also now documented 50% decline in hearing presumably from oxaliplatin also. -Tolerating FOLFIRI better with the addition of hydration on day 1 and 3. -I personally reviewed CT images and again with patient and independently verified and agreed with the radiologist's findings. -Reviewed CT scan results in detail. Stable disease as evidenced by small objective response in the liver metastasis. Left upper lobe lung nodule stable in size. Plan: -Okay for treatment tomorrow. -Plan hydration on day 1 and day 3. -Will add Emend day 1. Continue the addition of dexamethasone 4 mg twice a day on days 2 and 3. -CTs after 4 more cycles. 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 Plan: -Continue Xarelto. Sujit Vasquez, DO [facility] ABS GR + CBC Collected: 03/18/2018 Status: F Source: [place] 9:30 AM [facility] REPOSITORY TYPE CODE TESTS RESULT OUT OF REFERENCE UNITS RANGE LAB WWBC 3.70-11.00 k/uL Low [place] WBC 3.65 LAB WRBC 3.90-5.20 m/uL Low [place] RBC 3.41 LAB WHGB 11.5-15.5 g/dL Low [place] Hemoglobin 11.1 LAB WHCT 36.0-46.0 % Low [place] Hematocrit 34.4 LAB WMCV 80.0-100.0 fL [place] High MCV 100.9 LAB WMCH 26.0-34.0 pg [place] MCH 32.6 LAB WMCHC 30.5-36.0 g/dL [place] MCHC 32.3 LAB WRDW 11.5-15.0 % [place] High RDW 15.6 LAB WPLT 150-400 k/uL [place] Platelet Cnt 170 LAB WMPV 9.0-12.7 fL [place] MPV 9.8 Result Comment: Test performed at: [facility], [address] [place] [address] Rd[address] [place] [address]. LAB ABGRAN 1.45-7.50 k/uL Absol Gran 2.34 Count CNOVSP Observed: 03/18/2018 Status: COMPLETED Source: [place] 9:30 AM [facility] REPOSITORY Visit (SP) Office (HEMA[facility]) QUYEN COKER ([id number]) 1940 F CHT Date Time Provider Department 03/18/18 9:30 AM SUJIT VASQUEZ During your visit today, we recorded the following information about you: Temperature Pulse Blood pressure Weight 97.7 degrees 73/minute 114/56 98.4 kg Sujit Vasquez DO 03/18/2018 9:57 AM Signed Diagnosis: 1) Metastatic colon cancer. KRAS - No variant detected [Reference sequence: (NM_[id number])]. NRAS - No variant detected [Reference sequence: (NM_[id number])]. BRAF - No variant detected [Reference sequence: (NM_[id number])]. 2) DCIS. 3) IMV thrombus. 4) DVT. HPI: The patient is a 77 yo female with a PMH significant for hyperlipidemia, HTN, CAD (PR, CABG x2 2011; stent x1 2013), PVD (carotid artery stenosis s/p CEA left side 2012), sleep apnea (uses CPAP), arthritis (chronic lower back and from lower thoracic area to the neck pain). She developed rectal bleeding in March and underwent evaluation with EGD. Evidently that study was normal. Next underwent colonoscopy and was observed to have a tumor in the cecum. Had normal colonoscopy about 2 years prior. Underwent right hemicolectomy 07/28/2015. 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 Through muscularis propria into subserosal adipose tissue, but not extending to the serosal surface. All margins negative. No lymphovascular invasion. No perineural invasion. No tumor deposits. None of 14 nodes positive. No evidence MSI by IHC. Had screening mammogram 08/2015. Abnormality left breast. Dx mammo and US 09/06/2015. 6.5 x 7.9 mm nodular density with focal calcifications in fthe slightly upper lateral portion of the left breast. Underwent stereotactic core biopsy 09/15/2015. DCIS, cribriform and solid, grade 2, single cell necrosis; no invasive carcinoma. MRI of the breast 10/11/2015: Longitudinally oriented area of mild enhancement in the central left breast thought to be due to postbiopsy hemorrhage/inflammation. Tumor along this entire length is thought less likely but cannot be excluded. MRI of the abdomen and pelvis 10/13/2015: Liver: There is a large, heterogeneously enhancing mass within the entire lateral segment of the left hepatic lobe and extending into the medial segment as well. This mass measures approximately 8.2 x 5.8 x 6.3 cm. This is most consistent with neoplasm, perhaps metastatic given the patient's history of colonic carcinoma. No additional hepatic lesions are seen. There is patchy hepatic fatty change throughout the right hepatic lobe. Partial, nonocclusive thrombus within the superior mesenteric vein just cephalad to its 1st branch. Liver biopsy--consistent with colorectal primary. Patient received the fourth cycle chemotherapy on 12/22/2015. She developed profuse diarrhea and presented to the emergency department for dehydration and shortness of breath. She was found to be an RVR atrial fibrillation with significant hypomagnesemia. She was admitted and started on IV hydration and magnesium replacement as well as medical management of atrial fibrillation. The diarrhea however continued for several more days during which she was given supportive care. Following that she developed an episode of ileus which extend her hospital stay. She was eventually discharged to rehabilitation. This morning she underwent an ultrasound of both lower extremities. She was found to have an acute DVT in the right common femoral vein. Treated with apixaban. Underwent left-sided lumpectomy for DCIS. Specimen - partial breast Procedure - excision with wire-guided localization Lymph node sampling ? no lymph nodes present Specimen integrity - single intact specimen Specimen size ? 15 x 9 x 4 cm Specimen laterality ? left Tumor site ? not specified Size (extent) of DCIS ? 0.3 cm in greatest dimension. See comment. 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 Architectural pattern - cribriform Nuclear grade - grade 2 (intermediate) Necrosis ? not identified Margins ? margin uninvolved by ductal carcinoma in situ. The tumor is 2 cm away from the closest anterior and posterior margins Treatment effect - no known presurgical therapy. Lymph nodes ? not submitted Distant metastasis ? not replicable Additional Pathologic Findings ? fibrocystic changes. - Focal changes consistent with previous biopsy site. Previous therapy: 1) FOLFOX x1; FOLFOX with Vectibix x3. 2) Underwent left hepatectomy 04/28/2016. Final pathology reviewed. Positive margin was cauterized during surgery. 3) Xeloda after liver directed therapy. Started cycle #3 11/27/2016 through 02/2017. 4) Infusional 5-fluorouracil with oxaliplatin on diagnosis lung metastasis. Current therapy: 1) FOLFIRI. Presents for ongoing oncologic management. Interim history: She continues to do reasonably well with chemotherapy. This past cycle she had a little more persistent nausea on day 2 and 3. She used dexamethasone. She didn't feel like it helped his much as it did the previous cycle. After that nausea subsides. Her appetite returns to normal. She's not had any significant diarrhea. Mild symptoms of stomatitis about mid cycle but this doesn't prevent her from eating. No rash. She's not been troubled by cough, wheeze or sputum production. No shortness of breath at rest. No episodes of jaundice. PMH, medications and allergies as below personally reviewed by me today. Any changes documented in appropriate section. ROS: Constitutional: Denies episodes of fever and night sweats. Neuro: See above.. HEENT: No recent change in voice, vision or hearing (significant b/l hearing loss--underwent audiogram early December 2017. Study showed a 50% decline in her hearing. Presumably this is from oxaliplatin.). Resp: See above. CVS: Denies exertional chest pain, PND, orthopnea. GI: See above. : No dysuria or gross hematuria. Stress incontinence--stable. Endo: Denies hot flashes. Denies polyuria and polydipsia. Denies heat and cold intolerance. Musculoskeletal: Denies bone, back, joint and muscular pain. Derm: Denies diffuse pruritis. Heme: No unusual bleeding and/or unexplained bruising. Psych: Normal mood. PHYSICAL EXAM: Vitals: Blood pressure 114/56, pulse 73, temperature 36.5 ?C (97.7 ?F), temperature source Temporal Artery, weight 98.4 kg (217 lb). Well-appearing and in no acute distress. EYES: Sclerae are anicteric bilaterally. NECK: Supple. No enlargement of thyroid. LYMPHATIC: There is no palpable cervical, supraclavicular adenopathy. RESPIRATORY: Inspiratory breath sounds are clear with no rhonchi or wheeze. CARDIOVASCULAR: Rhythm is irregular. ABDOMEN: The abdomen is nondistended and non-tender. Extremities: Free of edema. SKIN: No jaundice or rash. No petechiae. NEUROLOGIC: foil cutter II-XII are grossly intact. No focal motor weakness. ASSESSMENT/PLAN: (C18.2) Malignant neoplasm of ascending colon (HCC) (primary encounter diagnosis) (C78.7) Liver metastasis (HCC) Assessment: -Patient had completed several months of capecitabine following resection for an isolated metastasis. She tolerated capecitabine only marginally and was on lower doses for the last couple cycles. She had marked difficulty with diarrhea, dehydration and several hospitalizations/ER visits for toxicity. However, lung nodule had been stable. 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 -First cycle was complicated by port line rupture. 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 Also now documented 50% decline in hearing presumably from oxaliplatin also. -Tolerating FOLFIRI better with the addition of hydration on day 1 and 3. -I personally reviewed CT images and again with patient and independently verified and agreed with the radiologist's findings. -Reviewed CT scan results in detail. Stable disease as evidenced by small objective response in the liver metastasis. Left upper lobe lung nodule stable in size. Plan: -Okay for treatment tomorrow. -Plan hydration on day 1 and day 3. -Will add Emend day 1. Continue the addition of dexamethasone 4 mg twice a day on days 2 and 3. -CTs after 4 more cycles. 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 Plan: -Continue Xarelto. Sujit Vasquez DO Referring Provider: SUJIT VASQUEZ [[id number]] Allergies As of Date: 03/18/2018 Noted Allergy Reaction CORGARD (NADOLOL) 07/21/2015 12 - Shortness of Breath PENN 07/21/2015 12 - Shortness of Breath MORPHINE 07/21/2015 12 - Shortness of Breath Comments: Pt says she can tolerate oxycodone. PENICILLINS 07/21/2015 12 - Shortness of Breath PERFUMES 12/07/2017 12 - Shortness of Breath PRAVACHOL (PRAVASTATIN) 07/21/2015 12 - Shortness of Breath SULFITE 07/21/2015 12 - Shortness of Breath Comments: Sulfites in food. Verified by refrigerator tester. ZOCOR (SIMVASTATIN) 07/21/2015 12 - Shortness of Breath Comments: Pt reports allergy to brand Zocor, tolerates generic. 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) [C78.02] Follow-up and Disposition History Recorded Prescriptions as of 03/18/2018 Sig: DEXAMETHASONE 4 MG TABLET Take 1 tablet by mouth twice * OMEPRAZOLE 40 MG CAPSULE,MELODY* Take 1 capsule by mouth once * HYOSCYAMINE 0.125 MG DISINTEG* Dissolve 2 tablets under the * ONDANSETRON HCL 8 MG TABLET Take 1 tablet by mouth every * [id number]* Take 10 mL by mouth every 4 h* POTASSIUM CHLORIDE 20 MEQ ORA* Take 20 mEq by mouth once wyatt* RIVAROXABAN 15 MG TABLET Take 1 tablet by mouth daily * Patient taking differently: Take by mouth daily with dinn* LIDOCAINE-PRILOCAINE 2.5 %-2.* Apply 1 application to affect* SODIUM CHLORIDE 0.9% FLUSH Access implanted vascular acc* HEPARIN, PORCINE (PF) 100 UNI* Access implanted vascular acc* LOPERAMIDE 2 MG TABLET Take 2 mg by mouth as needed. SODIUM CHLORIDE 0.9% FLUSH Access implanted vascular acc* HEPARIN LOCK FLUSH (PORCINE) * Access implanted vascular acc* FUROSEMIDE 20 MG TABLET Take 2 tablets by mouth twice* MONTELUKAST 10 MG TABLET Take 1 tablet by mouth daily * MAGNESIUM OXIDE 400 MG TABLET Take 400 mg by mouth twice da* ACETAMINOPHEN 500 MG TABLET Take 1,000 mg by mouth as nee* DIPHENHYDRAMINE 25 MG TABLET Take 50 mg by mouth as needed. ISOSORBIDE MONONITRATE ER 60 * Take 60 mg by mouth once wilman* ASPIRIN 81 MG TABLET,DELAYED * Take 81 mg by mouth once wilman* METOPROLOL TARTRATE 50 MG TAB* Take 50 mg by mouth twice wyatt* LISINOPRIL 10 MG TABLET Take 10 mg by mouth once wilman* MOMETASONE 220 MCG (60 DOSES)* Inhale 1 Puff as instructed. CHOLECALCIFEROL (VITAMIN D3) * Take 1 tablet by mouth once d* SIMVASTATIN 40 MG TABLET Take 20 mg by mouth daily at * NITROGLYCERIN 0.3 MG SUBLINGU* Dissolve 0.3 mg under the ton* ALBUTEROL SULFATE HFA 90 MCG/* Inhale 2 Puffs as instructed * EPINEPHRINE 0.15 MG/0.15 ML I* by INJECTION(UNSPECIFIED PARE* LORATADINE 10 MG TABLET Take 10 mg by mouth as needed. 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] INVALID FOR* Abnormal magnetic resonance imaging of liver [R*INVALID FOR* Liver metastasis (HCC) [C78.7] INVALID FOR* Diabetes (HCC) [E11.9] INVALID FOR* Hearing loss [H91.90] INVALID FOR* Hypertension [I10] INVALID FOR* Hyperlipidemia [E78.5] INVALID FOR* Carotid artery disease (HCC) [I77.9] INVALID FOR* Coronary artery disease [I25.10] INVALID FOR* Asthma [J45.909] INVALID FOR* Sleep apnea [G47.30] INVALID FOR* Arthritis [M19.90] INVALID FOR* Fibromyalgia [M79.7] INVALID FOR* Atrial arrhythmia [I49.8] INVALID FOR* H/O degenerative disc disease [Z87.39] INVALID FOR* Spondylolysis [M43.00] INVALID FOR* Radiculopathy [M54.10] INVALID FOR* Eczema [L30.9] INVALID FOR* Anemia [D64.9] INVALID FOR* 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*INVALID FOR* Colon cancer (HCC) [C18.9] Hypotension due to drugs [I95.2] INVALID FOR* Orthostasis [I95.1] INVALID FOR* Nausea [R11.0] INVALID FOR* Anemia due to antineoplastic chemotherapy [D64.*INVALID FOR* CKD (chronic kidney disease) stage 3, GFR 30-59*INVALID FOR* Dehydration [E86.0] INVALID FOR* Malignant neoplasm metastatic to left lung (HCC*INVALID FOR* Encounter Status:Closed by SUJIT VASQUEZ DO on 03/18/18 COMP METABOLIC PANEL Collected: 03/18/2018 Status: F Source: [place] 9:30 AM [facility] REPOSITORY TYPE CODE TESTS RESULT OUT OF REFERENCE UNITS RANGE LAB TP 6.3-8.0 g/dL Protein, Total 6.3 LAB ALB 3.9-4.9 g/dL Low Albumin 3.7 LAB CA 8.5-10.2 mg/dL Calcium, Total 9.2 LAB TBIL 0.2-1.3 mg/dL Bilirubin, Total 0.4 LAB ALKP 32-117 U/L Alkaline High Phosphatase 156 LAB AST 13-35 U/L AST 33 LAB GLU 74-99 mg/dL Glucose High 255 Result Comment: The [place] Diabetes Association (ADA) provides guidance for cutoff values for fasting glucose and random glucose. The ADA defines fasting as no caloric intake for at least 8 hours. Fas ting plasma glucose results between 100 to 125 mg/dL indicate increased risk for diabetes (prediabetes). Fasting plasma glucose results greater than or equal to 126 mg/dL meet the criteria for diagnosis of diabetes. In the absence of unequivocal hyperglycemia, results should be confirmed by repeat testing. In a patient with classic symptoms of hyperglycemia or hyperglycemic crisis, random plasma glucose results greater than or equal to 200 mg/dL meet the criteria for diagnosis of diabetes. Reference: Standards of Medical Care in Diabetes 2016, British Diabetes Association. Diabetes Care. 2016.39(Suppl 1). LAB BUN 7-21 mg/dL BUN 21 LAB CRET 0.58-0.96 mg/dL Creatinine High 1.13 LAB NA 136-144 mmol/L Sodium 138 LAB K 3.7-5.1 mmol/L Potassium 4.4 LAB CL 97-105 mmol/L Chloride 101 LAB CO2 22-30 mmol/L CO2 24 LAB AGAP 9-18 mmol/L Anion Gap 13 LAB ALT 7-38 U/L ALT High 43 LAB GFRAA eGFR- Amer. 57 LAB GFRNAA . eGFR-All Other Races 47 Result Comment: eGFR (Estimated GFR) Units of measure: mL/min/1.73 meters squared eGFR is derived from the reexpressed MDRD Study equation using the following parameters: serum creatinine, age, gender and race. The creatinine assay has been calibrated to be traceable to IDMS. An eGFR <60 mL/min/1.73m2 for >3 months is consistent with chronic kidney disease. Refer to KDOQI guidelines for clinical interpretation. In patients with unstable renal function, e.g. those with acute kidney injury, the eGFR may not accurately reflect actual GFR. Performed By: #### CMP, CEA #### [facility] [address] [place], [place] [address] CEA Collected: 03/18/2018 Status: F Source: [place] 9:30 AM [facility] REPOSITORY TYPE CODE TESTS RESULT OUT OF RANGE REFERENCE UNITS LAB CEA 0.0-2.9 ng/mL High CEA 6.9 Result Comment: Test analyzed by the [place] DxI method. Performed By: #### CMP, CEA #### [facility] [address] [place], [place] [address] PROGRESS Observed: 03/12/2018 Status: COMPLETED Source: [place] 11:26 AM [facility] REPOSITORY HNO ID: [id number] Author: Mignon Quiñonez Ct Service: (none) Author Type: (none) Type: Progress Notes Filed: 03/12/2018 11:26 AM Note Text: Radiology Service Progress Note PATIENT NAME: Quyen Coker DATE OF SERVICE: March 12, 2018 TIME: 11:26 AM PATIENT IDENTITY VERIFICATION COMPLETED USING TWO (2) METHODS: Patient confirmed name verbally and Date of . PATIENT GENDER DATA: Female. status: : No status: NO. PATIENT RELEVANT IMPLANT DATA REVIEWED: Not Applicable CONTRAST INDUCED NEPHROPATHY RISK FACTORS: Patient age > 60 years CREATININE: Creatinine Date Value Ref Range Status 02/18/2018 1.46 (H) 0.58 - 0.96 mg/dL Final 02/04/2018 1.23 (H) 0.58 - 0.96 mg/dL Final 01/22/2018 1.06 (H) 0.58 - 0.96 mg/dL Final Creatinine, Whole Blood (iSTAT) Date Value Ref Range Status 03/04/2018 1.10 0.70 - 1.40 mg/dL Final eGFR-All Other Races Date Value Ref Range Status 03/04/2018 48 . Final Comment: eGFR (Estimated GFR) Units of measure: mL/min/1.73 meters squared eGFR is derived from the reexpressed MDRD Study equation using the following parameters: serum creatinine, age, gender and race. The creatinine assay has been calibrated to be traceable to IDMS. An eGFR <60 mL/min/1.73m2 for >3 months is consistent with chronic kidney disease. Refer to KDOQI guidelines for clinical interpretation. In patients with unstable renal function, e.g. those with acute kidney injury, the eGFR may not accurately reflect actual GFR. eGFR- Date Value Ref Range Status 03/04/2018 59 Final P.O.C.T. RESULTS: POC done: Yes, See Lab Tab March 12, 2018 RADIOLOGIST NOTIFIED?: Yes IV Hydration: Normal Saline solution 500 ml over 1 hours. ALLERGIES: Reviewed and unchanged CONTRAST ALLERGY: NO. PERIPHERAL IV ACCESS: power port accessed by [facility] RADIOLOGY DEPARTMENT: CT; Exam(s) Completed: Chest Abdomen Pelvis SIGNED BY: Mignon Quiñonez Ct March 12, 2018 11:[address] ABD/PEL W IVCON Observed: 03/12/2018 Status: F Source: [place] 11:21 AM [facility] REPOSITORY * * *Final Report* * * DATE OF EXAM: Mar 12 2018 11:21AM [facility] 0530 - CT ABD/PEL W IVCON / PROCEDURE REASON: multiple diagnoses * * * * Physician Interpretation * * * * EXAMINATION: CT CHEST WITH IV CONTRAST AND CT ABDOMEN AND PELVIS WITH IV CONTRAST CLINICAL HISTORY: Malignant neoplasm of ascending colon Secondary malignant neoplasm of liver and intrahepatic bile duct Anemia due to antineoplastic chemotherapy Adverse effect of antineoplastic and immunosuppressive drugs, initial encounter TECHNIQUE: CT of the chest from the thoracic inlet to the upper abdomen was performed following IV contrast. CT of the abdomen and pelvis was performed using standard technique, scanning from just above the dome of the diaphragm to the symphysis pubis. MQ: [id number] Contrast: Other: 145 ml of Omnipaque 300 Oral: 50 ml of 50ML Omnipaque [address] Radiation dose: Integrated Dose-length product (DLP) for this visit = 1411 mGy*cm. CT Dose Reduction Employed: Automated exposure control (AEC) COMPARISON: 12/18/2017. RESULT: Limitations: None. Chest: Lines, tubes, and devices: There is a partially visualized Port-A-Cath within the subcutaneous tissues of the right upper chest, causing streak artifact. Lung parenchyma and pleura: A calcified granuloma is again seen within the right lower lobe. Secretions are seen within the trachea and left mainstem bronchus. There is no CT evidence for pneumonia. There is no pleural effusion, endobronchial lesion, or pneumothorax. There is linear atelectasis seen within the lingula as well as within the right middle lobe. There is a stable, approximately 5 mm nodule seen within the anterior segment of the left upper lobe (series 4, image number 55). Other noncalcified pulmonary nodules are also stable. For example, a stable approximately 4 mm subpleural nodule seen within the right middle lobe (series 4, image #124). Thoracic inlet, heart, and mediastinum: Stable masslike spiculated density with surrounding surgical clips within the left breast (series 4, image #77). A second density within the left breast has improved in the interval. The patient is status post median sternotomy. Atherosclerotic calcifications are present within the thoracic aorta and coronary arteries. The heart is normal in size, and there is no significant pericardial effusion. Stable enlarged right hilar lymph node, containing calcification, measuring approximately 1.1 cm short axis dimension (series 4, image #99). No staci axillary or mediastinal adenopathy is identified. Abdomen / Pelvis: Liver: Again seen are postsurgical changes of prior left hepatectomy. The liver is of low-density, when compared the spleen, suggesting fatty infiltration of the liver. Low-density lesion seen within the right hepatic lobe has mildly decreased in size, currently measuring approximately 1.5 x 1.0 cm, previously 1.6 x 1.2 cm (series 8, #16). No new hepatic mass is identified. Biliary: The patient is status post cholecystectomy. There is no biliary dilation. Spleen: No mass. No splenomegaly. Pancreas: No mass or duct dilation. Adrenals: No mass. Kidneys: There is no hydronephrosis or perinephric fluid collection. Again seen is mild fullness of right extrarenal pelvis. Stable subcentimeter, low-attenuation lesion within the upper pole of the right kidney, which is too small to characterize but statistically relate to a subcentimeter cyst (series 8, image #36). GI tract: There is a tiny hiatal hernia. There are no dilated loops of bowel to suggest obstruction. There is sigmoid colon diverticulosis, without CT evidence for diverticulitis. Lymph nodes: There is no abdominal adenopathy. Mesentery/Peritoneum: No ascites or mass. Retroperitoneum: No mass. Vasculature: The celiac axis and SMA are patent. The portal vein and branches, splenic vein, SMV, and hepatic veins are patent. Atherosclerotic calcifications are present within the abdominal aorta, without aneurysmal dilation. Pelvis: The patient is status post hysterectomy. Multiple phleboliths are seen within the pelvis. There is no pelvic adenopathy, mass, or ascites. Bones/Soft Tissues: There is osteopenia and bilateral hip degenerative change, left greater than right. There is multilevel degenerative change and scoliosis seen within the spine. There is bilateral shoulder DJD. The patient is status post median sternotomy. There is no destructive bony lesion. There is diffuse idiopathic skeletal hyperostosis. IMPRESSION: No significant interval change in CT appearance of the chest. Stable enlarged right hilar lymph node, containing calcifications. Sequela of remote granulomatous disease. Stable subcentimeter noncalcified pulmonary nodules, measuring up to 5 mm. Otherwise, no convincing CT evidence for metastatic disease in the chest. Stable postsurgical changes of prior left hepatectomy. Interval mild decrease in size of lesion within the right hepatic lobe. Otherwise, no convincing CT evidence of metastatic disease in the abdomen or pelvis. Colonic diverticulosis, without CT evidence for diverticulitis. Tiny hiatal hernia. Aerologist: MANUELA Transcribe Date/Time: Mar 13 2018 7:08A Dictated by : MARYAN NGO MD This examination was interpreted and the report reviewed and electronically signed by: MARYAN NGO MD on Mar 13 2018 7:19AM EST [id number] CT CHEST W IVCON Observed: 03/12/2018 Status: F Source: [place] 11:21 AM [facility] REPOSITORY * * *Final Report* * * DATE OF EXAM: Mar 12 2018 11:21AM [facility] 0539 - CT CHEST W IVCON / PROCEDURE REASON: multiple diagnoses * * * * Physician Interpretation * * * * EXAMINATION: CT CHEST WITH IV CONTRAST AND CT ABDOMEN AND PELVIS WITH IV CONTRAST CLINICAL HISTORY: Malignant neoplasm of ascending colon Secondary malignant neoplasm of liver and intrahepatic bile duct Anemia due to antineoplastic chemotherapy Adverse effect of antineoplastic and immunosuppressive drugs, initial encounter TECHNIQUE: CT of the chest from the thoracic inlet to the upper abdomen was performed following IV contrast. CT of the abdomen and pelvis was performed using standard technique, scanning from just above the dome of the diaphragm to the symphysis pubis. MQ: [id number] Contrast: Other: 145 ml of Omnipaque 300 Oral: 50 ml of 50ML Omnipaque [address] Radiation dose: Integrated Dose-length product (DLP) for this visit = 1411 mGy*cm. CT Dose Reduction Employed: Automated exposure control (AEC) COMPARISON: 12/18/2017. RESULT: Limitations: None. Chest: Lines, tubes, and devices: There is a partially visualized Port-A-Cath within the subcutaneous tissues of the right upper chest, causing streak artifact. Lung parenchyma and pleura: A calcified granuloma is again seen within the right lower lobe. Secretions are seen within the trachea and left mainstem bronchus. There is no CT evidence for pneumonia. There is no pleural effusion, endobronchial lesion, or pneumothorax. There is linear atelectasis seen within the lingula as well as within the right middle lobe. There is a stable, approximately 5 mm nodule seen within the anterior segment of the left upper lobe (series 4, image number 55). Other noncalcified pulmonary nodules are also stable. For example, a stable approximately 4 mm subpleural nodule seen within the right middle lobe (series 4, image #124). Thoracic inlet, heart, and mediastinum: Stable masslike spiculated density with surrounding surgical clips within the left breast (series 4, image #77). A second density within the left breast has improved in the interval. The patient is status post median sternotomy. Atherosclerotic calcifications are present within the thoracic aorta and coronary arteries. The heart is normal in size, and there is no significant pericardial effusion. Stable enlarged right hilar lymph node, containing calcification, measuring approximately 1.1 cm short axis dimension (series 4, image #99). No staci axillary or mediastinal adenopathy is identified. Abdomen / Pelvis: Liver: Again seen are postsurgical changes of prior left hepatectomy. The liver is of low-density, when compared the spleen, suggesting fatty infiltration of the liver. Low-density lesion seen within the right hepatic lobe has mildly decreased in size, currently measuring approximately 1.5 x 1.0 cm, previously 1.6 x 1.2 cm (series 8, #16). No new hepatic mass is identified. Biliary: The patient is status post cholecystectomy. There is no biliary dilation. Spleen: No mass. No splenomegaly. Pancreas: No mass or duct dilation. Adrenals: No mass. Kidneys: There is no hydronephrosis or perinephric fluid collection. Again seen is mild fullness of right extrarenal pelvis. Stable subcentimeter, low-attenuation lesion within the upper pole of the right kidney, which is too small to characterize but statistically relate to a subcentimeter cyst (series 8, image #36). GI tract: There is a tiny hiatal hernia. There are no dilated loops of bowel to suggest obstruction. There is sigmoid colon diverticulosis, without CT evidence for diverticulitis. Lymph nodes: There is no abdominal adenopathy. Mesentery/Peritoneum: No ascites or mass. Retroperitoneum: No mass. Vasculature: The celiac axis and SMA are patent. The portal vein and branches, splenic vein, SMV, and hepatic veins are patent. Atherosclerotic calcifications are present within the abdominal aorta, without aneurysmal dilation. Pelvis: The patient is status post hysterectomy. Multiple phleboliths are seen within the pelvis. There is no pelvic adenopathy, mass, or ascites. Bones/Soft Tissues: There is osteopenia and bilateral hip degenerative change, left greater than right. There is multilevel degenerative change and scoliosis seen within the spine. There is bilateral shoulder DJD. The patient is status post median sternotomy. There is no destructive bony lesion. There is diffuse idiopathic skeletal hyperostosis. IMPRESSION: No significant interval change in CT appearance of the chest. Stable enlarged right hilar lymph node, containing calcifications. Sequela of remote granulomatous disease. Stable subcentimeter noncalcified pulmonary nodules, measuring up to 5 mm. Otherwise, no convincing CT evidence for metastatic disease in the chest. Stable postsurgical changes of prior left hepatectomy. Interval mild decrease in size of lesion within the right hepatic lobe. Otherwise, no convincing CT evidence of metastatic disease in the abdomen or pelvis. Colonic diverticulosis, without CT evidence for diverticulitis. Tiny hiatal hernia. Aerologist: PSCB Transcribe Date/Time: Mar 13 2018 7:08A Dictated by : MARYAN NGO MD This examination was interpreted and the report reviewed and electronically signed by: MARYAN NGO MD on Mar 13 2018 7:19AM EST [id number] CARDIOLOGY VISIT Observed: 03/05/2018 Status: F Source: HIMROD REPORT 2:13 PM [facility] REPOSITORY [facility] [address] [place] [address] OFFICE VISIT Date of Service: 03/05/18 MR#: [id number] Acct: [id number] Name: QUYEN COKER Rep #: [id number] : 1940 Provider: Roland Cage MD Age/Sex: 77/F Location: [facility] Status: Signed HPI HPI Chief Complaint: Follow up visit Details: QUYEN COKER, is a 77 F who presents to the office today for a follow-up visit. She is a lady with a history of coronary artery disease status post carotid bypass surgery 2 in January 2012. She had a left internal mammary artery to the first diagonal vessel and a saphenous vein graft to the right coronary artery. She also in 2013 had a drug-eluting stent placed to the circumflex artery with a plain old balloon angioplasty to the left anterior descending artery. In addition she has a history of chronic atrial fibrillation and a left carotid endarterectomy in 2012. As you know she unfortunately developed colon carcinoma even after having a colonoscopy with liver metastases. She had to have a liver resection as well. She is currently doing well on maintenance chemotherapy. She denies any chest pain on a routine basis but she does have some discomfort once or twice a month. She does not take any nitroglycerin for this because it does not last that long she has not had any dizziness or diaphoresis no near syncope or syncope she continues to follow-up with the oncologist. Her physical exam today demonstrates clear lung pedersen irregular rate and rhythm and no pedal edema. 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 [employer] Allergies penn Allergy (Verified 03/05/18 13:26) Shortness of breath nadolol [From Corgard] Allergy (Verified 03/05/18 13:26) Hives Penicillins Allergy (Verified 03/05/18 13:26) Hives pitavastatin [From Livalo] Allergy (Verified 03/05/18 13:26) myalgia pravastatin sodium [From Pravachol] Allergy (Verified 03/05/18 13:26) Hives sulfite Allergy (Verified 03/05/18 13:26) Hives atorvastatin calcium [From Lipitor] Adverse Reaction (Verified 03/05/18 13:26) Pain in joints morphine Adverse Reaction (Verified 03/05/18 13:26) chest pain Medications Aspirin 81 mg PO DAILY 01/03/17 [History Confirmed 03/05/18] Cholecalciferol (Vitamin D3) [Vitamin D3] 4,000 unit PO DAILY 01/03/17 [History Confirmed 01/16/18] Mometasone Furoate [Asmanex 220 mcg Twisthaler] 2 puff INHALATION DAILY 01/03/17 [History Confirmed 03/05/18] acetaminophen 500 mg tablet 1,000 mg PO PRN PRN tab 08/17/17 [History Confirmed 03/05/18] albuterol sulfate HFA 90 mcg/actuation aerosol inhaler 2 puff INHALATION Q4H PRN PRN 16 Days #18 08/17/17 [History Confirmed 03/05/18] diphenhydramine 25 mg capsule 50 mg PO PRN PRN 0 Days 08/17/17 [History Confirmed 01/16/18] epinephrine 0.3 mg/0.3 mL injection, auto-injector 0.3 ml SC PRN PRN 1 Days #2 ea 08/17/17 [History Confirmed 01/16/18] hydrocortisone 2.5 % topical cream 1 applic TOPICAL TID PRN PRN 10 Days #30 08/17/17 [History Confirmed 03/05/18] loratadine 10 mg tablet 10 mg PO DAILY PRN PRN 0 Days 08/17/17 [History Confirmed 03/05/18] montelukast 10 mg tablet 10 mg PO QDAY PRN tab 08/17/17 [History Confirmed 03/05/18] lisinopril 10 mg tablet 10 mg PO DAILY #90 tab 08/21/17 [Rx Confirmed 03/05/18] magnesium oxide 400 mg tablet 400 mg PO BID #180 tab 08/21/17 [Rx Confirmed 03/05/18] nitroglycerin 0.4 mg sublingual tablet 0.4 mg SUBLINGUAL Q5M PRN #25 tab 08/21/17 [Rx Confirmed 03/05/18] omeprazole 20 mg tablet,delayed release 20 mg PO DAILY #90 tab 09/25/17 [Rx Confirmed 03/05/18] Clotrimazole/Betamethasone Dip [Lotrisone Cream] 1 applic TP BID 10/01/17 [History Confirmed 01/16/18] Potassium Chloride [Klor-Con M20] 20 meq PO DAILY 10/01/17 [History Confirmed 03/05/18] metoprolol tartrate 25 mg tablet 25 mg PO BID #180 tab 01/14/18 [Rx Confirmed 03/05/18] isosorbide mononitrate ER 60 mg tablet,extended release 24 hr 60 mg PO DAILY #90 tab 01/22/18 [Rx Confirmed 03/05/18] simvastatin 20 mg tablet 20 mg PO QHS #90 tab 01/22/18 [Rx Confirmed 03/05/18] FOLFIRI IV 03/05/18 [History Confirmed 03/05/18] dexamethasone 4 mg tablet 4 mg PO Q12H PRN 03/05/18 [History Confirmed 03/05/18] furosemide 40 mg tablet 40 mg PO QDAY #90 tab 03/05/18 [Rx Confirmed 03/05/18] rivaroxaban 15 mg tablet 15 mg PO QDAY #90 tab 03/05/18 [Rx Confirmed 03/05/18] PFSH Medical History Nonrheumatic mitral (valve) insufficiency (Chronic) Non-rheumatic tricuspid valve insufficiency (Chronic) Atherosclerosis of coronary artery without angina pectoris (Chronic) HTN (hypertension) (Chronic) Old myocardial infarction (Chronic) Persistent atrial fibrillation (Chronic) Hypomagnesemia (Chronic) Anemia of chronic disorder (Chronic) Carotid artery stenosis (Chronic) Hyperlipidemia (Chronic) Diabetes mellitus, type II (Chronic) Obesity (BMI 30-39.9) (Chronic) Adenocarcinoma of colon (Chronic) Breast cancer (Chronic) Colon cancer metastasized to liver (Chronic) Palpitations (Inactive) Surgical History History of coronary artery stent placement (Chronic 12/04/13) H/O coronary artery bypass surgery (Chronic 02/13/12) History of colectomy (Chronic) History of left-sided carotid endarterectomy (Chronic 02/07/13) Hx of resection of liver (Chronic) History of appendectomy (Resolved) History of hysterectomy (Resolved) Family History Father CAD (coronary artery disease) Myocardial infarction, Onset Age: 45 Brother CAD (coronary artery disease) Myocardial infarction, Onset Age: 65 Mother , age 85 Atrial fibrillation CHF (congestive heart failure) Pacemaker Sister Atrial fibrillation, Onset Age: 55 Social History Smoking Status: Never smoker alcohol intake: never substance use type: does not use caffeine: Yes Type: carbonated beverages what type of physical activity do you participate in: none seatbelt use: always do you feel safe at home: Yes ROS Const Const: Positive for fatigue (Receives chemo every 2 weeks); negative for weakness, difficulty sleeping, frequent falls, headache(s) or excessive sweating Eyes Eyes: Negative for loss of peripheral vision, transient loss of vision, blurry vision or double vision ENT ENT: Negative for headache(s), dizziness, Nosebleed/epistaxis or balance problems Cardio Chest Pain: Yes (Occasional substernal chest pain that last only a few seconds) Frequency: monthly Edema: None Muscle aches with walking: None Resp Respiratory: Positive for SOB with activity (When walking long distances); negative for SOB at rest, SOB orthopnea\SOB lying down or paroxysmal nocturnal dyspnea GI GI: Negative nausea or heartburn : Negative for hematuria Musc Musc: Negative for muscle aches/ myalgia, muscle weakness, joint pain or balance problems Skin Skin: Negative non-healing lesions, unusual bruising or rash Neuro Neuro: Negative for weakness, frequent falls, blurry vision, headache(s), dizziness, lightheadedness, orthostatic symptoms or double vision Jose M Hematologic/Lymphatic: Negative for easy bruising Endo Endo: Positive for fatigue (Receives chemo every 2 weeks); negative for excessive sweating or increased thirst/drinking Psych Psych: Negative for anxiety or depression Allergy Allergy/Immunology: Negative for hives, Negative for rash Cardiology Exam Const Appearance: cooperative, healthy appearing, well developed, well groomed and no acute distress Nutritional Appearance: well nourished and average body habitus Orientation: alert, awake and oriented x3 Head Head: normal to inspection, normocephalic and atraumatic Ears: hearing grossly normal bilaterally and external ears normal Nose: external nose normal, nasal mucous membranes and turbinates normal, nares normal, septum normal, no nasal discharge Face and Sinus: face symmetric Mouth: oral mucosae normal, tongue normal, oropharynx normal and moist mucous membranes Teeth and gingiva: dentition normal Throat: posterior oropharynx normal, tonsils normal and uvula midline Eyes General: appearance normal, both eyes and all related structures Eyelids: eyelids normal Conjunctivae: conjunctivae normal Pupils: PERRL, normal by confrontation and accommodation normal EOM: EOM intact bilaterally Neck Neck: normal visual inspection, trachea midline and no JVD JVD: +5 Carotids: normal carotid upstroke and bounding pulses Chest Chest inspection: normal inspection of the chest, symmetric chest movement and normal respiratory effort Auscultation: Bilateral: Clear to Auscultation Cardio Palpation: normal PMI Rhythm: irregular rhythm Heart sounds: S1 normal and S2 normal GI GI: normal to inspection, soft, no hepatosplenomegaly and bowel sounds present Neuro General: alert, awake, oriented x3, no focal sensory deficit, gait normal and moves all extremities Skin Skin: no rashes or lesions noted Extremities Pulses: Normal: Right Femoral Pulse, Left Femoral Pulse, Right Dorsalis Pedis Pulse, Left Dorsalis Pedis Pulse, Right Posterior Tibial Pulse, Left Posterior Tibial Pulse, Right Radial Pulse, Left Radial Pulse Lower Extremity Edema: None: Bilateral Musculoskel Musculoskeletal: No joint tenderness Psych Psychological: normal affect Assessment AND Plan 1. H/O coronary artery bypass surgery Z95.1 CABG x 2 [place] to D2, SVG to RCA 02/13/2012 Plan She has a history of coronary artery disease and appears to doing well at this particular time. I do not think that she has anginal spells and my recommendation will be to continue her current medical therapy without making any changes I like to see her again in 6 months and at that time decide whether any further testing would need to be undertaken. 2. Essential hypertension I10 Plan Her blood pressure appears to be under excellent control on the current medical therapy utilizing the beta-bryce and the lisinopril as well as the diuretic with Lasix. No changes will need to be made with regard to the above medications. 3. Persistent atrial fibrillation I48.1 Plan She does have a history of chronic persistent atrial fibrillation with preserved ejection fraction noted on echocardiogram from 2015. My recommendation will be for her to remain on her anticoagulant with the rivaroxaban which she takes once a day. She will also remain on the beta-bryce for rate control. 4. Pure hypercholesterolemia E78.00 Plan She does have a history of hyperlipidemia and will remain on the lipid-lowering medication. Her most recent lipid profile demonstrated total cholesterol 161 HDL 61 LDL 73. 5. Carotid artery stenosis I65.29 Plan She does have a history of carotid stenosis. Her carotid duplex did not demonstrate any significant stenosis from September of this year. She will continue with the risk factor modification. 6. 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 She continues to follow-up with the oncologist and we will obtain serial echocardiograms and follow her closely as per the cardio oncology regimen. Thank you for allowing me to participate in the care of your patient. 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) Coding Level of Care Code Off vis,est,level 4 Diagnoses H/O coronary artery bypass surgery Z95.1 Essential hypertension I10 Hypertension type: essential hypertension Persistent atrial fibrillation I48.1 Pure hypercholesterolemia E78.00 Hyperlipidemia type: pure hypercholesterolemia Carotid artery stenosis I65.29 Colon cancer metastasized to liver C18.9; C78.7 Coding Level of Care Code Off vis,est,level 4 Diagnoses H/O coronary artery bypass surgery Z95.1 Essential hypertension I10 Hypertension type: essential hypertension Persistent atrial fibrillation I48.1 Pure hypercholesterolemia E78.00 Hyperlipidemia type: pure hypercholesterolemia Carotid artery stenosis I65.29 Colon cancer metastasized to liver C18.9; C78.7 03/05/18 1413 <Electronically signed by Roland Cage MD> Date Roland Cage MD Cosigner Signature: Date (if applicable) CC: Alvarez Mccoy MD PROGRESS Observed: 03/04/2018 Status: COMPLETED Source: [place] 8:52 AM [facility] REPOSITORY O ID: [id number] Author: Sujit Vasquez Service: (none) Author Type: Physician Type: Progress Notes Filed: 03/04/2018 9:11 AM Note Text: Diagnosis: 1) Metastatic colon cancer. KRAS - No variant detected [Reference sequence: ([id number])]. NRAS - No variant detected [Reference sequence: ([id number])]. BRAF - No variant detected [Reference sequence: ([id number])]. 2) DCIS. 3) IMV thrombus. 4) DVT. HPI: The patient is a 77 yo female with a PMH significant for hyperlipidemia, HTN, CAD (PR, CABG x2 2011; stent x1 2013), PVD (carotid artery stenosis s/p CEA left side 2012), sleep apnea (uses CPAP), arthritis (chronic lower back and from lower thoracic area to the neck pain). She developed rectal bleeding in March and underwent evaluation with EGD. Evidently that study was normal. Next underwent colonoscopy and was observed to have a tumor in the cecum. Had normal colonoscopy about 2 years prior. Underwent right hemicolectomy 07/28/2015. 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 Through muscularis propria into subserosal adipose tissue, but not extending to the serosal surface. All margins negative. No lymphovascular invasion. No perineural invasion. No tumor deposits. None of 14 nodes positive. No evidence MSI by IHC. Had screening mammogram 08/2015. Abnormality left breast. Dx mammo and US 09/06/2015. 6.5 x 7.9 mm nodular density with focal calcifications in fthe slightly upper lateral portion of the left breast. Underwent stereotactic core biopsy 09/15/2015. DCIS, cribriform and solid, grade 2, single cell necrosis; no invasive carcinoma. MRI of the breast 10/11/2015: Longitudinally oriented area of mild enhancement in the central left breast thought to be due to postbiopsy hemorrhage/inflammation. Tumor along this entire length is thought less likely but cannot be excluded. MRI of the abdomen and pelvis 10/13/2015: Liver: There is a large, heterogeneously enhancing mass within the entire lateral segment of the left hepatic lobe and extending into the medial segment as well. This mass measures approximately 8.2 x 5.8 x 6.3 cm. This is most consistent with neoplasm, perhaps metastatic given the patient's history of colonic carcinoma. No additional hepatic lesions are seen. There is patchy hepatic fatty change throughout the right hepatic lobe. Partial, nonocclusive thrombus within the superior mesenteric vein just cephalad to its 1st branch. Liver biopsy--consistent with colorectal primary. Patient received the fourth cycle chemotherapy on 12/22/2015. She developed profuse diarrhea and presented to the emergency department for dehydration and shortness of breath. She was found to be an RVR atrial fibrillation with significant hypomagnesemia. She was admitted and started on IV hydration and magnesium replacement as well as medical management of atrial fibrillation. The diarrhea however continued for several more days during which she was given supportive care. Following that she developed an episode of ileus which extend her hospital stay. She was eventually discharged to rehabilitation. This morning she underwent an ultrasound of both lower extremities. She was found to have an acute DVT in the right common femoral vein. Treated with apixaban. Underwent left-sided lumpectomy for DCIS. Specimen - partial breast Procedure - excision with wire-guided localization Lymph node sampling ? no lymph nodes present Specimen integrity - single intact specimen Specimen size ? 15 x 9 x 4 cm Specimen laterality ? left Tumor site ? not specified Size (extent) of DCIS ? 0.3 cm in greatest dimension. See comment. 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 Architectural pattern - cribriform Nuclear grade - grade 2 (intermediate) Necrosis ? not identified Margins ? margin uninvolved by ductal carcinoma in situ. The tumor is 2 cm away from the closest anterior and posterior margins Treatment effect - no known presurgical therapy. Lymph nodes ? not submitted Distant metastasis ? not replicable Additional Pathologic Findings ? fibrocystic changes. - Focal changes consistent with previous biopsy site. Previous therapy: 1) FOLFOX x1; FOLFOX with Vectibix x3. 2) Underwent left hepatectomy 04/28/2016. Final pathology reviewed. Positive margin was cauterized during surgery. 3) Xeloda after liver directed therapy. Started cycle #3 11/27/2016 through 02/2017. 4) Infusional 5-fluorouracil with oxaliplatin on diagnosis lung metastasis. Current therapy: 1) FOLFIRI. Presents for ongoing oncologic management--evaluation for cycle #5. Interim history: Dexamethasone 4 mg twice a day was added on days 2 and 3 last cycle. She said this helped with the nausea. It wasn't quite as intense. She still has occasional nausea after eating and sometimes in the morning. She had no diarrhea this past cycle. Mouth sores were processor grain than they have been and she was able to eat without difficulty. She has occasional epigastric or lower chest discomfort. Otherwise no palpitation. No significant cough or sputum production. No wheezing. No shortness of breath at rest. Symptoms of neuropathy are stable. She still gets had pressure after infusion of irinotecan which resolved by day 2. PMH, medications and allergies as below personally reviewed by me today. Any changes documented in appropriate section. ROS: Constitutional: Denies episodes of fever and night sweats. Neuro: See above.. HEENT: No recent change in voice, vision or hearing (significant b/l hearing loss--underwent audiogram early December 2017. Study showed a 50% decline in her hearing. Presumably this is from oxaliplatin.). Resp: See above. CVS: Denies exertional chest pain, PND, orthopnea. GI: See above. : No dysuria or gross hematuria. Stress incontinence--stable. Endo: Denies hot flashes. Denies polyuria and polydipsia. Denies heat and cold intolerance. Musculoskeletal: Denies bone, back, joint and muscular pain. Derm: Denies rash. Denies diffuse pruritis. Heme: No unusual bleeding and/or unexplained bruising. Psych: Normal mood. PHYSICAL EXAM: Vitals: Blood pressure 118/67, pulse 67, temperature 36.7 ?C (98 ?F), weight 97.5 kg (215 lb). Well-appearing and in no acute distress. EYES: Sclerae are anicteric bilaterally. NECK: Supple. No enlargement of thyroid. LYMPHATIC: There is no palpable cervical, supraclavicular adenopathy. RESPIRATORY: Inspiratory breath sounds are clear with no rhonchi or wheeze. CARDIOVASCULAR: Rhythm is irregular. ABDOMEN: The abdomen is nondistended and non-tender. Extremities: Free of edema. SKIN: No jaundice or rash. No petechiae. NEUROLOGIC: foil cutter II-XII are grossly intact. No focal motor weakness. ASSESSMENT/PLAN: (C18.2) Malignant neoplasm of ascending colon (HCC) (primary encounter diagnosis) (C78.7) Liver metastasis (HCC) Assessment: -Patient had completed several months of capecitabine following resection for an isolated metastasis. She tolerated capecitabine only marginally and was on lower doses for the last couple cycles. She had marked difficulty with diarrhea, dehydration and several hospitalizations/ER visits for toxicity. However, lung nodule had been stable. 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 -First cycle was complicated by port line rupture. 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 Also now documented 50% decline in hearing presumably from oxaliplatin also. -Tolerating FOLFIRI better with the addition of hydration on day 1 and 3. Plan: -Okay for treatment tomorrow. -Plan hydration on day 1 and day 3. -Continue the addition of dexamethasone 4 mg twice a day on days 2 and 3. -CT prior to cycle #8--scheduled. 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 Plan: -Continue Xarelto. DO KELLEN [place] ABS GR + CBC Collected: 03/04/2018 Status: F Source: [place] 8:35 AM [facility] REPOSITORY TYPE CODE TESTS RESULT OUT OF REFERENCE UNITS RANGE LAB WWBC 3.70-11.00 k/uL [facility] WBC 3.80 LAB WRBC 3.90-5.20 m/uL Low [place] RBC 3.54 LAB WHGB 11.5-15.5 g/dL Low [facility] Hemoglobin 11.4 LAB WHCT 36.0-46.0 % Low [facility] Hematocrit 35.8 LAB WMCV 80.0-100.0 fL [facility] High MCV 101.1 LAB WMCH 26.0-34.0 pg [facility] MCH 32.2 LAB WMCHC 30.5-36.0 g/dL [place] MCHC 31.8 LAB WRDW 11.5-15.0 % [place] RDW 15.0 LAB WPLT 150-400 k/uL [facility] Platelet Cnt 179 LAB WMPV 9.0-12.7 fL [place] MPV 10.0 Result Comment: Test performed at: [facility], [address] [place] [address]. LAB ABGRAN 1.45-7.50 k/uL Absol Gran 2.32 Count KELLEN ISTAT BMP Collected: 03/04/2018 Status: F Source: [place] 8:35 AM [facility] REPOSITORY TYPE CODE TESTS RESULT OUT OF REFERENCE UNITS RANGE LAB NAWB 132-148 mmol/L Sodium, Whole 136 Bld LAB K1WB 3.5-5.0 mmol/L Potassium,Who 3.9 le Bld LAB CLWB 98-110 mmol/L Chloride, 99 Whole Bld LAB ICAWB 1.08-1.30 mmol/L Ionized 1.18 Calcium, WB Result Comment: Please note: This value represents ionized calcium not total calcium. LAB CO2WB 23-32 mmol/L TCO2, Whole 25 Blood LAB GLUWB 65-100 mg/dL High Glucose, 230 Whole Bld LAB BUNWB 8-25 mg/dL BUN, Whole 23 Blood LAB BCRET 0.70-1.40 mg/dL Creatinine,Wh 1.10 ole Bld LAB AGAPWB 0-15 mmol/L Anion Gap, 12 Whole Bld LAB GFRAA eGFR- 59 Amer. LAB GFRNAA . eGFR-All 48 Other Races Result Comment: eGFR (Estimated GFR) Units of measure: mL/min/1.73 meters squared eGFR is derived from the reexpressed MDRD Study equation using the following parameters: serum creatinine, age, gender and race. The creatinine assay has been calibrated to be traceable to IDKS. An eGFR <60 mL/min/1.73m2 for >3 months is consistent with chronic kidney disease. Refer to KDOQI guidelines for clinical interpretation. In patients with unstable renal function, e.g. those with acute kidney injury, the eGFR may not accurately reflect actual GFR. HEPATIC FUNCTN PANEL Collected: 03/04/2018 Status: F Source: [place] 8:35 AM [facility] REPOSITORY TYPE CODE TESTS RESULT OUT OF REFERENCE UNITS RANGE LAB ALB 3.9-4.9 g/dL Albumin 3.9 LAB TBIL 0.2-1.3 mg/dL Bilirubin, Total 0.5 LAB CBIL <0.2 mg/dL Bilirubin,Conjuga <0.2 maikel LAB ALKP 32-117 U/L Alkaline High Phosphatase 159 LAB AST 13-35 U/L AST High 47 LAB ALT 7-38 U/L ALT High 46 LAB TP 6.3-8.0 g/dL Protein, Total 6.6 Performed By: #### HFP, CEA #### [facility] [address] [place] [id number] CEA Collected: 03/04/2018 Status: F Source: [place] 8:35 AM [facility] REPOSITORY TYPE CODE TESTS RESULT OUT OF RANGE REFERENCE UNITS LAB CEA 0.0-2.9 ng/mL High CEA 6.1 Result Comment: Test analyzed by the Oversee DxI method. Performed By: #### HFP, CEA #### [facility] [address] [place] [id number] CNOVSP Observed: 03/04/2018 Status: COMPLETED Source: [place] 8:30 AM [facility] REPOSITORY Visit (SP) Office ([place]) QUYEN COKER ([id number]) 1940 F CHT Date Time Provider Department 03/04/18 8:30 AM SUJIT VASQUEZ During your visit today, we recorded the following information about you: Temperature Pulse Blood pressure Weight 98 degrees 67/minute 118/67 97.5 kg Elisa WeberBRANDONN, JUAN 03/04/2018 8:59 AM Signed Est pt., discuss recent lab results, tx Sunday Elisa WeberJUAN, DO 03/04/2018 9:11 AM Signed Diagnosis: 1) Metastatic colon cancer. KRAS - No variant detected [Reference sequence: ([id number])]. NRAS - No variant detected [Reference sequence: ([id number])]. BRAF - No variant detected [Reference sequence: ([id number])]. 2) DCIS. 3) IMV thrombus. 4) DVT. HPI: The patient is a 77 yo female with a PMH significant for hyperlipidemia, HTN, CAD (PR, CABG x2 2011; stent x1 2013), PVD (carotid artery stenosis s/p CEA left side 2012), sleep apnea (uses CPAP), arthritis (chronic lower back and from lower thoracic area to the neck pain). She developed rectal bleeding in March and underwent evaluation with EGD. Evidently that study was normal. Next underwent colonoscopy and was observed to have a tumor in the cecum. Had normal colonoscopy about 2 years prior. Underwent right hemicolectomy 07/28/2015. 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 Through muscularis propria into subserosal adipose tissue, but not extending to the serosal surface. All margins negative. No lymphovascular invasion. No perineural invasion. No tumor deposits. None of 14 nodes positive. No evidence MSI by IHC. Had screening mammogram 08/2015. Abnormality left breast. Dx mammo and US 09/06/2015. 6.5 x 7.9 mm nodular density with focal calcifications in fthe slightly upper lateral portion of the left breast. Underwent stereotactic core biopsy 09/15/2015. DCIS, cribriform and solid, grade 2, single cell necrosis; no invasive carcinoma. MRI of the breast 10/11/2015: Longitudinally oriented area of mild enhancement in the central left breast thought to be due to postbiopsy hemorrhage/inflammation. Tumor along this entire length is thought less likely but cannot be excluded. MRI of the abdomen and pelvis 10/13/2015: Liver: There is a large, heterogeneously enhancing mass within the entire lateral segment of the left hepatic lobe and extending into the medial segment as well. This mass measures approximately 8.2 x 5.8 x 6.3 cm. This is most consistent with neoplasm, perhaps metastatic given the patient's history of colonic carcinoma. No additional hepatic lesions are seen. There is patchy hepatic fatty change throughout the right hepatic lobe. Partial, nonocclusive thrombus within the superior mesenteric vein just cephalad to its 1st branch. Liver biopsy--consistent with colorectal primary. Patient received the fourth cycle chemotherapy on 12/22/2015. She developed profuse diarrhea and presented to the emergency department for dehydration and shortness of breath. She was found to be an RVR atrial fibrillation with significant hypomagnesemia. She was admitted and started on IV hydration and magnesium replacement as well as medical management of atrial fibrillation. The diarrhea however continued for several more days during which she was given supportive care. Following that she developed an episode of ileus which extend her hospital stay. She was eventually discharged to rehabilitation. This morning she underwent an ultrasound of both lower extremities. She was found to have an acute DVT in the right common femoral vein. Treated with apixaban. Underwent left-sided lumpectomy for DCIS. Specimen - partial breast Procedure - excision with wire-guided localization Lymph node sampling ? no lymph nodes present Specimen integrity - single intact specimen Specimen size ? 15 x 9 x 4 cm Specimen laterality ? left Tumor site ? not specified Size (extent) of DCIS ? 0.3 cm in greatest dimension. See comment. 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 Architectural pattern - cribriform Nuclear grade - grade 2 (intermediate) Necrosis ? not identified Margins ? margin uninvolved by ductal carcinoma in situ. The tumor is 2 cm away from the closest anterior and posterior margins Treatment effect - no known presurgical therapy. Lymph nodes ? not submitted Distant metastasis ? not replicable Additional Pathologic Findings ? fibrocystic changes. - Focal changes consistent with previous biopsy site. Previous therapy: 1) FOLFOX x1; FOLFOX with Vectibix x3. 2) Underwent left hepatectomy 04/28/2016. Final pathology reviewed. Positive margin was cauterized during surgery. 3) Xeloda after liver directed therapy. Started cycle #3 11/27/2016 through 02/2017. 4) Infusional 5-fluorouracil with oxaliplatin on diagnosis lung metastasis. Current therapy: 1) FOLFIRI. Presents for ongoing oncologic management--evaluation for cycle #5. Interim history: Dexamethasone 4 mg twice a day was added on days 2 and 3 last cycle. She said this helped with the nausea. It wasn't quite as intense. She still has occasional nausea after eating and sometimes in the morning. She had no diarrhea this past cycle. Mouth sores were processor grain than they have been and she was able to eat without difficulty. She has occasional epigastric or lower chest discomfort. Otherwise no palpitation. No significant cough or sputum production. No wheezing. No shortness of breath at rest. Symptoms of neuropathy are stable. She still gets had pressure after infusion of irinotecan which resolved by day 2. PMH, medications and allergies as below personally reviewed by me today. Any changes documented in appropriate section. ROS: Constitutional: Denies episodes of fever and night sweats. Neuro: See above.. HEENT: No recent change in voice, vision or hearing (significant b/l hearing loss--underwent audiogram early December 2017. Study showed a 50% decline in her hearing. Presumably this is from oxaliplatin.). Resp: See above. CVS: Denies exertional chest pain, PND, orthopnea. GI: See above. : No dysuria or gross hematuria. Stress incontinence--stable. Endo: Denies hot flashes. Denies polyuria and polydipsia. Denies heat and cold intolerance. Musculoskeletal: Denies bone, back, joint and muscular pain. Derm: Denies rash. Denies diffuse pruritis. Heme: No unusual bleeding and/or unexplained bruising. Psych: Normal mood. PHYSICAL EXAM: Vitals: Blood pressure 118/67, pulse 67, temperature 36.7 ?C (98 ?F), weight 97.5 kg (215 lb). Well-appearing and in no acute distress. EYES: Sclerae are anicteric bilaterally. NECK: Supple. No enlargement of thyroid. LYMPHATIC: There is no palpable cervical, supraclavicular adenopathy. RESPIRATORY: Inspiratory breath sounds are clear with no rhonchi or wheeze. CARDIOVASCULAR: Rhythm is irregular. ABDOMEN: The abdomen is nondistended and non-tender. Extremities: Free of edema. SKIN: No jaundice or rash. No petechiae. NEUROLOGIC: foil cutter II-XII are grossly intact. No focal motor weakness. ASSESSMENT/PLAN: (C18.2) Malignant neoplasm of ascending colon (HCC) (primary encounter diagnosis) (C78.7) Liver metastasis (HCC) Assessment: -Patient had completed several months of capecitabine following resection for an isolated metastasis. She tolerated capecitabine only marginally and was on lower doses for the last couple cycles. She had marked difficulty with diarrhea, dehydration and several hospitalizations/ER visits for toxicity. However, lung nodule had been stable. 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 -First cycle was complicated by port line rupture. 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 Also now documented 50% decline in hearing presumably from oxaliplatin also. -Tolerating FOLFIRI better with the addition of hydration on day 1 and 3. Plan: -Okay for treatment tomorrow. -Plan hydration on day 1 and day 3. -Continue the addition of dexamethasone 4 mg twice a day on days 2 and 3. -CT prior to cycle #8--scheduled. 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 Plan: -Continue Xarelto. Sujit Vasquez DO Referring Provider: SUJIT VASQUEZ [[id number]] Allergies As of Date: 03/04/2018 Noted Allergy Reaction CORGARD (NADOLOL) 07/21/2015 12 - Shortness of Breath PENN 07/21/2015 12 - Shortness of Breath MORPHINE 07/21/2015 12 - Shortness of Breath Comments: Pt says she can tolerate oxycodone. PENICILLINS 07/21/2015 12 - Shortness of Breath PERFUMES 12/07/2017 12 - Shortness of Breath PRAVACHOL (PRAVASTATIN) 07/21/2015 12 - Shortness of Breath SULFITE 07/21/2015 12 - Shortness of Breath Comments: Sulfites in food. Verified by refrigerator tester. ZOCOR (SIMVASTATIN) 07/21/2015 12 - Shortness of Breath Comments: Pt reports allergy to brand Zocor, tolerates generic. Date Reviewed: 03/04/2018 Reviewed by: Elisa Krishnamurthy (Juan) JUAN Weber - Fully Assessed Reason for Visit: Established Patient [175] Visit Diagnoses:Malignant neoplasm of ascending colon (HCC) [C18.2] Liver metastasis (HCC) [C78.7] Mesenteric vein thrombosis [I81] Order(s):dexamethasone (DECADRON) 4 mg tabletTake 1 tablet by mouth twice daily with meals. On day 2 AND 3 (after each cycle of chemotherapy)Disp: 8 tabletRfl: 3 Follow-up and Disposition History Recorded Prescriptions as of 03/04/2018 Sig: DEXAMETHASONE 4 MG TABLET Take 1 tablet by mouth twice * OMEPRAZOLE 40 MG CAPSULE,MELODY* Take 1 capsule by mouth once * HYOSCYAMINE 0.125 MG DISINTEG* Dissolve 2 tablets under the * ONDANSETRON HCL 8 MG TABLET Take 1 tablet by mouth every * [id number]* Take 10 mL by mouth every 4 h* POTASSIUM CHLORIDE 20 MEQ ORA* Take 20 mEq by mouth once wyatt* RIVAROXABAN 15 MG TABLET Take 1 tablet by mouth daily * Patient taking differently: Take by mouth daily with dinn* LIDOCAINE-PRILOCAINE 2.5 %-2.* Apply 1 application to affect* SODIUM CHLORIDE 0.9% FLUSH Access implanted vascular acc* HEPARIN, PORCINE (PF) 100 UNI* Access implanted vascular acc* KETOCONAZOLE 2 % TOPICAL CREAM Apply 1 application to affect* LOPERAMIDE 2 MG TABLET Take 2 mg by mouth as needed. SODIUM CHLORIDE 0.9% FLUSH Access implanted vascular acc* HEPARIN LOCK FLUSH (PORCINE) * Access implanted vascular acc* FUROSEMIDE 20 MG TABLET Take 2 tablets by mouth twice* MONTELUKAST 10 MG TABLET Take 1 tablet by mouth daily * MAGNESIUM OXIDE 400 MG TABLET Take 400 mg by mouth twice da* ACETAMINOPHEN 500 MG TABLET Take 1,000 mg by mouth as nee* DIPHENHYDRAMINE 25 MG TABLET Take 50 mg by mouth as needed. ISOSORBIDE MONONITRATE ER 60 * Take 60 mg by mouth once wilman* ASPIRIN 81 MG TABLET,DELAYED * Take 81 mg by mouth once wilman* METOPROLOL TARTRATE 50 MG TAB* Take 50 mg by mouth twice wyatt* LISINOPRIL 10 MG TABLET Take 10 mg by mouth once wilman* MOMETASONE 220 MCG (60 DOSES)* Inhale 1 Puff as instructed. CHOLECALCIFEROL (VITAMIN D3) * Take 1 tablet by mouth once d* SIMVASTATIN 40 MG TABLET Take 20 mg by mouth daily at * NITROGLYCERIN 0.3 MG SUBLINGU* Dissolve 0.3 mg under the ton* ALBUTEROL SULFATE HFA 90 MCG/* Inhale 2 Puffs as instructed * EPINEPHRINE 0.15 MG/0.15 ML I* by INJECTION(UNSPECIFIED PARE* LORATADINE 10 MG TABLET Take 10 mg by mouth as needed. PREDNISONE 10 MG TABLET Take 1 tablet twice the day b* PROMETHAZINE 25 MG TABLET Take 0.5-1 tablets by mouth e* FERREX 150 MG IRON CAPSULE Take 1 capsule by mouth once * CLOTRIMAZOLE-BETAMETHASONE 1 * Apply 1 application to affect* HYDROCORTISONE VALERATE 0.2 %* Apply 1 application to affect* TRIAMCINOLONE ACETONIDE 0.025* Apply 1 application to affect* Problem List As Of Date 03/04/2018 Noted Resolved Malignant neoplasm of ascending colon (HCC) [C1*INVALID FOR* Abnormal mammogram of left breast [R92.8] INVALID FOR* 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] INVALID FOR* Abnormal magnetic resonance imaging of liver [R*INVALID FOR* Liver metastasis (HCC) [C78.7] INVALID FOR* Diabetes (HCC) [E11.9] INVALID FOR* Hearing loss [H91.90] INVALID FOR* Hypertension [I10] INVALID FOR* Hyperlipidemia [E78.5] INVALID FOR* Carotid artery disease (HCC) [I77.9] INVALID FOR* Coronary artery disease [I25.10] INVALID FOR* Asthma [J45.909] INVALID FOR* Sleep apnea [G47.30] INVALID FOR* Arthritis [M19.90] INVALID FOR* Fibromyalgia [M79.7] INVALID FOR* Atrial arrhythmia [I49.8] INVALID FOR* H/O degenerative disc disease [Z87.39] INVALID FOR* Spondylolysis [M43.00] INVALID FOR* Radiculopathy [M54.10] INVALID FOR* Eczema [L30.9] INVALID FOR* Anemia [D64.9] INVALID FOR* 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*INVALID FOR* Colon cancer (HCC) [C18.9] Hypotension due to drugs [I95.2] INVALID FOR* Orthostasis [I95.1] INVALID FOR* Nausea [R11.0] INVALID FOR* Anemia due to antineoplastic chemotherapy [D64.*INVALID FOR* Visit Notes: >> Elisa Krishnamurthy (Juan) JUAN Weber Mon Mar 04, 2018 8:35 AM Status: Signed Est pt., discuss recent lab results, tx Sunday Elisa Weber LPN Encounter Status:Closed by SUJIT VASQUEZ DO on 03/04/18 PROGRESS Observed: 02/22/2018 Status: COMPLETED Source: [place] 1:48 PM [facility] REPOSITORY HNO ID: [id number] Author: Lc Elmore Service: (none) Author Type: Physician Type: Progress Notes Filed: 02/22/2018 1:52 PM Note Text: FOLLOW UP VISIT - POST LEFT STEREOTACTIC GUIDED CORE BIOPSY AND POST LEFT EXCISIONAL BREST BIOPSY NAME: Quyen [facility] NO.: [id number] DATE OF SERVICE: February 22, 2018 : 1940 REFERRING PHYSICIAN: Alvarez Mccoy MD Quyen is a patient I am following for left medial breast microcalcifications, 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 She returns here for follow-up of her breast related issues. 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 Her complicated history is as follows: The patient is a 74 year old female with a complaint of rectal bleeding and anemia. The patient initially underwent upper endoscopy which demonstrated no obvious source. The patient underwent colonoscopy by Dr. Chuck Penn on July 13 which demonstrated a fungating mass at the cecum ascending colon junction. Pathology returned as invasive adenocarcinoma. The patient is being seen by me today at the request of Dr. Penn for my opinion and advice regarding right colon cancer. The patient has a history of coronary disease and carotid stenosis. She has been on Plavix which was on hold after her endoscopy and prior to her surgical procedure. Additionally, she had undergone previous left carotid endarterectomy. Patient was recently evaluated by her metal patternmaker, Dr. Sujit Maya. She had undergone coronary bypass grafting in 2011 and is status post an LAD and left circumflex stent placement in November 2013. 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 She has good left ventricular ejection fraction. It was felt she was an acceptable risk for surgical intervention and did not require further preoperative cardiac diagnostic studies. I performed a laparoscopic right hemicolectomy on July 28, 2015. The pathology demonstrated: The tumor's size was 3.0x2.6.1.0 cm. Macroscopic tumor perforation was not identified. Histologic type: adenocarcinoma Histologic Grade: Low grade Histologic features for microsatellite instability - Intratumoral lymphocytic response: Mild to moderate Peritumoral lymphocytic response: Crohn's like lymphoid response: None Tumor subtype and differentiation: Not applicable MIcroscopic tumor extension: tumor invades through muscularis propria into subserosal adipose Lymphovascular invasion: None Perineural invasion: None Surgical margins were free of disease. Lymph nodes examined: 14 Lymph nodes involved: 0 PATHOLOGIC STAGE: pT 3, pN 0, M 0 Quyen noted loose stools had been continuing for the past few days at her August 15 follow-up. She has been maintaining a low residue diet. She also notes very transient dizziness. Post operative pain has been well controlled. The patient notes nausea. The patient`s appetite has been average. She was admitted to the hospital on August 22 with further looser stools and dizziness and some dehydration. Stool cultures were obtained which demonstrated no abnormalities. She was started on probiotics and Imodium and this significantly improved her stool frequency. She notes that at this point in time, her stools remain somewhat green but are less loose than they were. Overall she states her appetite still remains fair. She also notes that she is having issues of persistent nausea. She noted that this seemed similar to this as she had had in the past and was evaluated by Dr. Penn with upper endoscopy which was apparently unremarkable. The patient has been on a 20 mg Prilosec dose for some time. She notes that her nausea symptoms improve if she takes Maalox. The patient still is complaining of episodic transient dizziness that is worse if she raises up more quickly. Additionally, the patient underwent a recent follow-up mammogram. This was read as demonstrating a 8 mm mass with microcalcifications in her left breast. It was recommended biopsy listed BI-RADS Category 4. The patient did not have ultrasound performed. She irregularly performs a self breast exam and notes overall lumpy breasts but denies any specific changes. She denies skin changes, nipple discharge, or other difficulties. She had a previous mammogram that did demonstrate some microcalcifications similar mass. I obtained a CT scan of the abdomen and pelvis. This demonstrated no intra-abdominal abnormalities and demonstrated the anastomosis to have no signs of leakage inflammation or abscess which I felt could've been concerning for her abdominal complaints. There was noted to be in an area of asymmetric contrast enhancement in the liver which seemed to go away in delayed films. There were a list of possible options for this and MRI was recommended as an option. The patient had a previous CT scan preop which demonstrated similar findings from my standpoint and intraoperatively had no abnormalities noted in this location at the liver surface. I felt it was not necessary to have an MRI. Dr. Vasquez evaluated the patient and was concerned of those findings and recommended an MRI be obtained. The patient has since seen her primary care physician. Her oral hypoglycemic medication was stopped which has both cured her dizziness symptoms and her epigastric/nausea symptoms. We also obtained ultrasound which demonstrates no specific abnormalities in her left breast I performed a left side stereotactic biopsy for her abnormal mammogram on September 15, 2014. The pathology returned as DCIS. The patient notes some resolution of the bruising since the procedure but now notes a mass that worries her at the biopsy site. 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 Nuclear Grade - 2 (intermediate). Necrosis - present, single cell necrosis. Calcifications - present. Additional findings - focal fibrocystic changes. Negative for invasive carcinoma in the submitted specimen. I plan to obtain an MRI to assess her breast for additional or more extended pathology. MRI of the breast returned as: IMPRESSION: KNOWN BIOPSY PROVEN MALIGNANCY Longitudinally oriented area of mild enhancement in the central left breast thought to be due to postbiopsy hemorrhage/inflammation. Tumor along this entire length is thought less likely but cannot be excluded. Brandee condon/giovanny:10/12/2015 12:43:57 Cash Room Clerk: [facility] letter sent: Category 6 MRI BI-RADS: 6 Known biopsy proven malignancy Aerologist: VIDYA Transcribe Date/Time: Oct 12 2015 12:43P Dictated by : BRANDEE AYALA MD This examination was interpreted and the report reviewed and electronically signed by: BRANDEE AYALA MD On Oct 12 2015 12:43PM Results-Findings * * *Final Report* * * DATE OF EXAM: Oct 11 2015 9:45AM [facility] [id number] - MRI BREAST YAN WWO / PROCEDURE REASON: DCIS (D05.10), ABNORMAL MAMMOGRAM OF LEFT BREAST (R92.8) * * * * Physician Interpretation * * * * #[id number] - MRI BREAST YAN WWO BREAST MRI OF BOTH BREASTS : 10/11/2015 HISTORY: Dcis (D05.10), Abnormal Mammogram Of Left Breast (R92.8). RESULT: No prior exams were available for comparison. Interpretation of this MRI was correlated with available mammograms. Gadolinium contrast calibrated to patient weight was injected. Axial T1, T2, pre and post contrast T1, and coronal images were obtained with a dedicated breast coil. The breasts are mostly fatty bilaterally. No mass, architectural distortion or abnormal enhancement is seen in the right breast. In the mid central right breast, centered just above the nipple is a longitudinal area of mild increased progressive enhancement. This is in the vicinity of recent biopsy. There is susceptibility artifact. However, the length of abnormal enhancement is much greater than the targeted lesion measuring approximately 4 cm in craniocaudal dimension. Maximal AP dimension is approximately 1.7 cm and maximal transverse dimension 1.3 cm. This abnormal enhancement could be biopsy related, perhaps representing postbiopsy hemorrhage/inflammation. No other areas of abnormal enhancement or architectural distortion are seen. There are no abnormalities seen in the axillary nodes region or infraclavicular nodes. The patient's abdominal MRI returned as: IMPRESSION: Large left hepatic lobe lesion, neoplastic in appearance and likely metastatic from the patient's known colonic CA. Partial SMV thrombus. COMMUNICATION: Communicated with: SUJIT Hernadnez 10/13/2015 12:20 PM. Aerologist: [facility] Transcribe Date/Time: Oct 13 2015 12:26P Dictated by : BRANDEE AYALA MD This examination was interpreted and the report reviewed and electronically signed by: BRANDEE AYALA MD On Oct 13 2015 12:26PM Results-Findings * * *Final Report* * * DATE OF EXAM: Oct 13 2015 9:35AM [facility] [id number] - MRI ABDOMEN WWO CONTRAST / PROCEDURE REASON: abnormal ct of lever r93.2 malignant neoplasm of ascending colon c18.2 dcia lef * * * * Physician Interpretation * * * * RESULT: MRI of the abdomen without and with intravenous contrast HISTORY: abnormal ct of lever r93.2 malignant neoplasm of ascending colon c18.2 dcis left TECHNIQUE: Using the torso phased array coil, axial STIR, T1 weighted in- and [id number] and coronal HASTE images were obtained. Flow sensitive imaging through the portal vein was performed, as well. Then, using a 3-D GRE T1 weighted sequence, dynamic images were obtained before, during and after the administration of 19ml cc intravenous Dotarem. Comparison: None FINDINGS: Liver: There is a large, heterogeneously enhancing mass within the entire lateral segment of the left hepatic lobe and extending into the medial segment as well. This mass measures approximately 8.2 x 5.8 x 6.3 cm. This is most consistent with neoplasm, perhaps metastatic given the patient's history of colonic carcinoma. No additional hepatic lesions are seen. There is patchy hepatic fatty change throughout the right hepatic lobe. Biliary tract: The common bile duct is normal in course and caliber. No filling defect is identified within the common duct. Gallbladder: Absent Pancreatic duct: The visualized portions of the pancreatic duct are normal. Spleen: No lesion is identified. Pancreas: The pancreas enhances normally and is without focal lesions. Adrenal glands: No mass is identified Kidneys: The visualized portions of the kidneys are normal. No adenopathy is identified. There is partial, nonocclusive thrombus within the superior mesenteric vein just cephalad to its 1st branch. She had undergone liver resection with a left hepatectomy for metastatic colon cancer at April 27, 2016. She was doing well post her liver resection and then we proceeded with her surgical resection for her DCIS. I performed a left needle localization lumpectomy/partial mastectomy on July 05, 2016. The pathology demonstrated: MICROSCOPIC DIAGNOSIS Left breast mass, lumpectomy with needle localization: Focal ductal carcinoma in situ. Changes consistent with previous biopsy site. See cancer summary below. SJ:carmen 07/07/16 DUCTAL CARCINOMA IN SITU SUMMARY: Specimen - partial breast Procedure - excision with wire-guided localization Lymph node sampling ? no lymph nodes present Specimen integrity - single intact specimen Specimen size ? 15 x 9 x 4 cm Specimen laterality ? left Tumor site ? not specified Size (extent) of DCIS ? 0.3 cm in greatest dimension. See comment. 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 Architectural pattern - cribriform Nuclear grade - grade 2 (intermediate) Necrosis ? not identified Margins ? margin uninvolved by ductal carcinoma in situ. The tumor is 2 cm away from the closest anterior and posterior margins Treatment effect - no known presurgical therapy. Lymph nodes ? not submitted Distant metastasis ? not replicable Additional Pathologic Findings ? fibrocystic changes. - Focal changes consistent with previous biopsy site. Ancillary Studies from previous specimen ([id number] / [id number]): ER ? positive (65%, strong) FL ? positive (54%, strong) Her2 sophie (IHC) ? equivocal (2+) Her2 by FISH - not performed. Microcalcifications ? present in non-neoplastic tissue. Clinical history - Please make reference to previous specimen ([id number]) left breast, stereotactic core biopsy with diagnosis of ductal carcinoma in situ. Pathologic Staging: pTis(DCIS) pNx Mx The above summary is in compliance with [employer] (CAP) Cancer Protocols Checklist and [employer] Joint Committee on Cancer (AJCC), Staging Manual, 7th Ed. COMMENT A minute focus of ductal carcinoma in situ is noted adjacent to the previous biopsy site. The ductal carcinoma in situ is measured on the glass slide. The ductal carcinoma in situ in the previous breast biopsy ([id number]) measures 0.4 x 0.2 cm in greatest dimension and present in 2 out of 4 blocks. Case has been reviewed in consultation with Dr. Segovia who concurs with the above diagnosis. IDC:SARAH Napier notes the site is well healing. Post operative pain has been well controlled. The patient denies nausea. The patient`s appetite has been good. Given the size of her DCIS she was not felt to need radiation following her procedure. She is doing a self breast exam and notes no palpable abnormalities. She recently underwent follow-up mammogram on February 13, 2017. This demonstrated: IMPRESSION: PROBABLY BENIGN The grouped calcifications in the left breast are probably benign. A follow-up mammogram in 6 months is recommended to demonstrate stability. Alvarez oro/giovanny:02/13/2017 12:06:29 Cash Room Clerk: Aubrie VALDEZ)(Luis Miguel), [facility] letter sent: # Mo FU Mammogram BI-RADS: 3 Probably benign Aerologist: Giovanny Transcribe Date/Time: Feb 13 2017 11:10A Dictated by: ALVAREZ CORONADO MD This examination was interpreted and the report reviewed and electronically signed by: ALVAREZ CORONAOD MD on Feb 13 2017 12:06PM ?EST The patient follow up study was found to have recurrence of her tumor at the edge of the previous resection in the liver and was felt to be a lung metastases. She is currently undergoing salvage/palliative chemotherapy. Overall she is doing well with these treatments. She had 6 month follow-up mammogram and ultrasound. This demonstrated: IMPRESSION: SUSPICIOUS FINDING - BIOPSY SHOULD BE CONSIDERED - FOLLOW-UP RECOMMENDED The 7 mm dilated duct in the left breast resembles a solid mass or a papilloma and is suspicious of malignancy. ?An ultrasound guided biopsy is recommended. Juancarlos andersen/giovanny:10/17/2017 15:09:57 Cash Room Clerk: Aubrie CAZARES(Michael)(Luis Miguel), [facility] letter sent: Abnormal ? Mammogram BI-RADS: 4 Suspicious finding - Biopsy should be considered Ultrasound BI-RADS: 4 Suspicious finding - Biopsy should be considered Aerologist: Giovanny Transcribe Date/Time: Oct 17 2017 ?1:56P Dictated by : JUANCARLOS SNOW MD This examination was interpreted and the report reviewed and electronically signed by: JUANCARLOS SNOW MD on Oct 17 2017 ?3:09PM ?EST Results-Findings * * *Final Report* * * DATE OF EXAM: Oct 17 2017 ?2:54PM ? WRU ? [id number] ?- ?[facility] US BREAST LTD LT ?/ PROCEDURE REASON: 6 month bilateral / left breast / abnormal mammogram ?? ? * * * * Physician Interpretation * * * * ?#[id number] - [facility] DIAGNOSTIC YAN BILATERAL DIGITAL DIAGNOSTIC MAMMOGRAM WITH CAD: 10/17/2017 HISTORY: 6 Month Bilateral / Left Breast / Abnormal Mammogram. RESULT: TECHNIQUE: ?The study was acquired using full field digital technology and interpreted from soft copy. Current study was also evaluated with a Computer Aided Detection (CAD). Comparison is made to exams dated: ?02/13/2017 mammogram, 09/04/2016 mammogram - [facility], 09/06/2015 mammogram, and 09/03/2015 mammogram. There are scattered fibroglandular elements in both breasts. The left breast has post-operative findings. There are grouped pleomorphic calcifications in the left breast at 9 o'clock anterior depth. No other significant masses, calcifications, or other findings are seen in either breast. SUSPICIOUS FINDING - BIOPSY SHOULD BE CONSIDERED The grouped pleomorphic calcifications in the left breast are suspicious of malignancy. ?A stereotactic biopsy is recommended. There is no abnormality seen in the left breast to correspond with the discharge from the nipple, however, clinical correlation is recommended. #[id number] - [facility] BREAST [facility] ULTRASOUND OF LEFT BREAST: 10/17/2017 RESULT: Comparison is made to exams dated: ?02/13/2017 mammogram, 09/04/2016 mammogram - [facility], 09/06/2015 mammogram, and 09/03/2015 mammogram. Real-time ultrasound of the left breast was performed. There is a 7 mm dilated duct in the left breast central to the nipple in the retroareolar region. ?This dilated duct displays internal echoes. She is currently recently receiving salvage chemotherapy for her metastatic colon cancer. She seems to be relatively stable on this course of treatment. The patient and her after considerable discussion would like to have biopsies of these areas. We plan to perform the biopsy at the midpoint of her chemotherapy therapy treatments I performed a left side Stereotactic guided core biopsy for her abnormal mammogram on November 20, 2017. The pathology returned as: Fibrocystic changes, focal intraductal hyperplasia without atypia. Hyalinized nodular with clustered microcalcifications, no evidence of malignancy She returned on for excisional breast biopsy at the site of her dilated duct found on ultrasound. She underwent ultrasound-guided wire placement. Excisional breast biopsy on January 16, 2018. Pathology returned as normal breast tissue with a focal dilated duct. She notes a very rare dry spot but much less drainage. VITALS: Blood pressure 120/60, pulse 60, weight 98.4 kg (217 lb). On examination, the left side breast biopsy site is clean, dry, and intact. Assessment IMPRESSION: status post Stereotactic guided core biopsy and left excisional biopsy for left side breast benign findings. PLAN: If Quyen notes any problems, she should contact me immediately. I reminded her about the importance of self - breast exam. I recommend she perform monthly self breast exams. If any palpable abnormalities, change in breast exam, or any difficulties are noted, she is to contact my office immediately. Diagnoses: (N64.52) Nipple discharge (primary encounter diagnosis) (R92.8) Abnormal finding on breast imaging Return to Clinic: The patient is instructed to follow- up with me in 5 months with left mammogram. Lc Elmore MD CNOV Observed: 02/22/2018 Status: COMPLETED Source: [place] 1:00 PM [facility] REPOSITORY Office Visit (GENSWS) QUYEN COKER ([id number]) 1940 [facility] Date Time Provider Department 02/22/18 1:00 PM LC ELMORE During your visit today, we recorded the following information about you: Pulse Blood pressure Weight 60/minute 120/60 98.4 kg Lc Elmore MD 02/22/2018 1:52 PM Signed FOLLOW UP VISIT - POST LEFT STEREOTACTIC GUIDED CORE BIOPSY AND POST LEFT EXCISIONAL BREST BIOPSY NAME: Quyen Coker [facility] NO.: [id number] DATE OF SERVICE: February 22, 2018 : 1940 REFERRING PHYSICIAN: Alvarez Mccoy MD Quyen is a patient I am following for left medial breast microcalcifications, 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 She returns here for follow-up of her breast related issues. 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 Her complicated history is as follows: The patient is a 74 year old female with a complaint of rectal bleeding and anemia. The patient initially underwent upper endoscopy which demonstrated no obvious source. The patient underwent colonoscopy by Dr. Chuck Penn on July 13 which demonstrated a fungating mass at the cecum ascending colon junction. Pathology returned as invasive adenocarcinoma. The patient is being seen by me today at the request of Dr. Penn for my opinion and advice regarding right colon cancer. The patient has a history of coronary disease and carotid stenosis. She has been on Plavix which was on hold after her endoscopy and prior to her surgical procedure. Additionally, she had undergone previous left carotid endarterectomy. Patient was recently evaluated by her metal patternmaker, Dr. Sujit Maya. She had undergone coronary bypass grafting in 2011 and is status post an LAD and left circumflex stent placement in November 2013. 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 She has good left ventricular ejection fraction. It was felt she was an acceptable risk for surgical intervention and did not require further preoperative cardiac diagnostic studies. I performed a laparoscopic right hemicolectomy on July 28, 2015. The pathology demonstrated: The tumor's size was 3.0x2.6.1.0 cm. Macroscopic tumor perforation was not identified. Histologic type: adenocarcinoma Histologic Grade: Low grade Histologic features for microsatellite instability - Intratumoral lymphocytic response: Mild to moderate Peritumoral lymphocytic response: Crohn's like lymphoid response: None Tumor subtype and differentiation: Not applicable MIcroscopic tumor extension: tumor invades through muscularis propria into subserosal adipose Lymphovascular invasion: None Perineural invasion: None Surgical margins were free of disease. Lymph nodes examined: 14 Lymph nodes involved: 0 PATHOLOGIC STAGE: pT 3, pN 0, M 0 Quyen noted loose stools had been continuing for the past few days at her August 15 follow-up. She has been maintaining a low residue diet. She also notes very transient dizziness. Post operative pain has been well controlled. The patient notes nausea. The patient`s appetite has been average. She was admitted to the hospital on August 22 with further looser stools and dizziness and some dehydration. Stool cultures were obtained which demonstrated no abnormalities. She was started on probiotics and Imodium and this significantly improved her stool frequency. She notes that at this point in time, her stools remain somewhat green but are less loose than they were. Overall she states her appetite still remains fair. She also notes that she is having issues of persistent nausea. She noted that this seemed similar to this as she had had in the past and was evaluated by Dr. Penn with upper endoscopy which was apparently unremarkable. The patient has been on a 20 mg Prilosec dose for some time. She notes that her nausea symptoms improve if she takes Maalox. The patient still is complaining of episodic transient dizziness that is worse if she raises up more quickly. Additionally, the patient underwent a recent follow-up mammogram. This was read as demonstrating a 8 mm mass with microcalcifications in her left breast. It was recommended biopsy listed BI-RADS Category 4. The patient did not have ultrasound performed. She irregularly performs a self breast exam and notes overall lumpy breasts but denies any specific changes. She denies skin changes, nipple discharge, or other difficulties. She had a previous mammogram that did demonstrate some microcalcifications similar mass. I obtained a CT scan of the abdomen and pelvis. This demonstrated no intra-abdominal abnormalities and demonstrated the anastomosis to have no signs of leakage inflammation or abscess which I felt could've been concerning for her abdominal complaints. There was noted to be in an area of asymmetric contrast enhancement in the liver which seemed to go away in delayed films. There were a list of possible options for this and MRI was recommended as an option. The patient had a previous CT scan preop which demonstrated similar findings from my standpoint and intraoperatively had no abnormalities noted in this location at the liver surface. I felt it was not necessary to have an MRI. Dr. Vasquez evaluated the patient and was concerned of those findings and recommended an MRI be obtained. The patient has since seen her primary care physician. Her oral hypoglycemic medication was stopped which has both cured her dizziness symptoms and her epigastric/nausea symptoms. We also obtained ultrasound which demonstrates no specific abnormalities in her left breast I performed a left side stereotactic biopsy for her abnormal mammogram on September 15, 2014. The pathology returned as DCIS. The patient notes some resolution of the bruising since the procedure but now notes a mass that worries her at the biopsy site. 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 Nuclear Grade - 2 (intermediate). Necrosis - present, single cell necrosis. Calcifications - present. Additional findings - focal fibrocystic changes. Negative for invasive carcinoma in the submitted specimen. I plan to obtain an MRI to assess her breast for additional or more extended pathology. MRI of the breast returned as: IMPRESSION: KNOWN BIOPSY PROVEN MALIGNANCY Longitudinally oriented area of mild enhancement in the central left breast thought to be due to postbiopsy hemorrhage/inflammation. Tumor along this entire length is thought less likely but cannot be excluded. Brandee condon/giovanny:10/12/2015 12:43:57 Cash Room Clerk: Marissa [facility] letter sent: Category 6 MRI BI-RADS: 6 Known biopsy proven malignancy Aerologist: VIDYA Transcribe Date/Time: Oct 12 2015 12:43P Dictated by : BRANDEE AYALA MD This examination was interpreted and the report reviewed and electronically signed by: BRANDEE AYALA MD On Oct 12 2015 12:43PM Results-Findings * * *Final Report* * * DATE OF EXAM: Oct 11 2015 9:45AM [facility] [id number] - MRI BREAST YAN WWO / PROCEDURE REASON: DCIS (D05.10), ABNORMAL MAMMOGRAM OF LEFT BREAST (R92.8) * * * * Physician Interpretation * * * * #[id number] - MRI BREAST YAN WWO BREAST MRI OF BOTH BREASTS : 10/11/2015 HISTORY: Dcis (D05.10), Abnormal Mammogram Of Left Breast (R92.8). RESULT: No prior exams were available for comparison. Interpretation of this MRI was correlated with available mammograms. Gadolinium contrast calibrated to patient weight was injected. Axial T1, T2, pre and post contrast T1, and coronal images were obtained with a dedicated breast coil. The breasts are mostly fatty bilaterally. No mass, architectural distortion or abnormal enhancement is seen in the right breast. In the mid central right breast, centered just above the nipple is a longitudinal area of mild increased progressive enhancement. This is in the vicinity of recent biopsy. There is susceptibility artifact. However, the length of abnormal enhancement is much greater than the targeted lesion measuring approximately 4 cm in craniocaudal dimension. Maximal AP dimension is approximately 1.7 cm and maximal transverse dimension 1.3 cm. This abnormal enhancement could be biopsy related, perhaps representing postbiopsy hemorrhage/inflammation. No other areas of abnormal enhancement or architectural distortion are seen. There are no abnormalities seen in the axillary nodes region or infraclavicular nodes. The patient's abdominal MRI returned as: IMPRESSION: Large left hepatic lobe lesion, neoplastic in appearance and likely metastatic from the patient's known colonic CA. Partial SMV thrombus. COMMUNICATION: Communicated with: SUJIT Hernandez 10/13/2015 12:20 PM. Aerologist: VIDYA Transcribe Date/Time: Oct 13 2015 12:26P Dictated by : BRANDEE AYALA MD This examination was interpreted and the report reviewed and electronically signed by: BRANDEE AYALA MD On Oct 13 2015 12:26PM Results-Findings * * *Final Report* * * DATE OF EXAM: Oct 13 2015 9:35AM [facility] [id number] - MRI ABDOMEN WWO CONTRAST / PROCEDURE REASON: abnormal ct of lever r93.2 malignant neoplasm of ascending colon c18.2 dcia lef * * * * Physician Interpretation * * * * RESULT: MRI of the abdomen without and with intravenous contrast HISTORY: abnormal ct of lever r93.2 malignant neoplasm of ascending colon c18.2 dcis left TECHNIQUE: Using the torso phased array coil, axial STIR, T1 weighted in- and [id number] and coronal HASTE images were obtained. Flow sensitive imaging through the portal vein was performed, as well. Then, using a 3-D GRE T1 weighted sequence, dynamic images were obtained before, during and after the administration of 19ml cc intravenous Dotarem. Comparison: None FINDINGS: Liver: There is a large, heterogeneously enhancing mass within the entire lateral segment of the left hepatic lobe and extending into the medial segment as well. This mass measures approximately 8.2 x 5.8 x 6.3 cm. This is most consistent with neoplasm, perhaps metastatic given the patient's history of colonic carcinoma. No additional hepatic lesions are seen. There is patchy hepatic fatty change throughout the right hepatic lobe. Biliary tract: The common bile duct is normal in course and caliber. No filling defect is identified within the common duct. Gallbladder: Absent Pancreatic duct: The visualized portions of the pancreatic duct are normal. Spleen: No lesion is identified. Pancreas: The pancreas enhances normally and is without focal lesions. Adrenal glands: No mass is identified Kidneys: The visualized portions of the kidneys are normal. No adenopathy is identified. There is partial, nonocclusive thrombus within the superior mesenteric vein just cephalad to its 1st branch. She had undergone liver resection with a left hepatectomy for metastatic colon cancer at April 27, 2016. She was doing well post her liver resection and then we proceeded with her surgical resection for her DCIS. I performed a left needle localization lumpectomy/partial mastectomy on July 05, 2016. The pathology demonstrated: MICROSCOPIC DIAGNOSIS Left breast mass, lumpectomy with needle localization: Focal ductal carcinoma in situ. Changes consistent with previous biopsy site. See cancer summary below. SJ:carmen 07/07/16 DUCTAL CARCINOMA IN SITU SUMMARY: Specimen - partial breast Procedure - excision with wire-guided localization Lymph node sampling ? no lymph nodes present Specimen integrity - single intact specimen Specimen size ? 15 x 9 x 4 cm Specimen laterality ? left Tumor site ? not specified Size (extent) of DCIS ? 0.3 cm in greatest dimension. See comment. 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 Architectural pattern - cribriform Nuclear grade - grade 2 (intermediate) Necrosis ? not identified Margins ? margin uninvolved by ductal carcinoma in situ. The tumor is 2 cm away from the closest anterior and posterior margins Treatment effect - no known presurgical therapy. Lymph nodes ? not submitted Distant metastasis ? not replicable Additional Pathologic Findings ? fibrocystic changes. - Focal changes consistent with previous biopsy site. Ancillary Studies from previous specimen ([id number] / [id number]): ER ? positive (65%, strong) FL ? positive (54%, strong) Her2 sophie (IHC) ? equivocal (2+) Her2 by FISH - not performed. Microcalcifications ? present in non-neoplastic tissue. Clinical history - Please make reference to previous specimen ([id number]) left breast, stereotactic core biopsy with diagnosis of ductal carcinoma in situ. Pathologic Staging: pTis(DCIS) pNx Mx The above summary is in compliance with [employer] (CAP) Cancer Protocols Checklist and [employer] Joint Committee on Cancer (AJCC), Staging Manual, 7th Ed. COMMENT A minute focus of ductal carcinoma in situ is noted adjacent to the previous biopsy site. The ductal carcinoma in situ is measured on the glass slide. The ductal carcinoma in situ in the previous breast biopsy (S16-244) measures 0.4 x 0.2 cm in greatest dimension and present in 2 out of 4 blocks. Case has been reviewed in consultation with Dr. Segovia who concurs with the above diagnosis. IDC:SARAH Napier notes the site is well healing. Post operative pain has been well controlled. The patient denies nausea. The patient`s appetite has been good. Given the size of her DCIS she was not felt to need radiation following her procedure. She is doing a self breast exam and notes no palpable abnormalities. She recently underwent follow-up mammogram on February 13, 2017. This demonstrated: IMPRESSION: PROBABLY BENIGN The grouped calcifications in the left breast are probably benign. A follow-up mammogram in 6 months is recommended to demonstrate stability. Alvarez oro/giovanny:02/13/2017 12:06:29 Cash Room Clerk: Aubrie GALARZA (R)), [facility] letter sent: # Mo FU Mammogram BI-RADS: 3 Probably benign Aerologist: Giovanny Transcribe Date/Time: Feb 13 2017 11:10A Dictated by: ALVAREZ CORONADO MD This examination was interpreted and the report reviewed and electronically signed by: ALVAREZ CORONADO MD on Feb 13 2017 12:06PM ?EST The patient follow up study was found to have recurrence of her tumor at the edge of the previous resection in the liver and was felt to be a lung metastases. She is currently undergoing salvage/palliative chemotherapy. Overall she is doing well with these treatments. She had 6 month follow-up mammogram and ultrasound. This demonstrated: IMPRESSION: SUSPICIOUS FINDING - BIOPSY SHOULD BE CONSIDERED - FOLLOW-UP RECOMMENDED The 7 mm dilated duct in the left breast resembles a solid mass or a papilloma and is suspicious of malignancy. ?An ultrasound guided biopsy is recommended. Juancarlos andersen/giovanny:10/17/2017 15:09:57 Cash Room Clerk: Aubrie CAZARES (R)(Luis Miguel), [facility] letter sent: Abnormal ? Mammogram BI-RADS: 4 Suspicious finding - Biopsy should be considered Ultrasound BI-RADS: 4 Suspicious finding - Biopsy should be considered Aerologist: Giovanny Transcribe Date/Time: Oct 17 2017 ?1:56P Dictated by : JUANCARLOS SNOW MD This examination was interpreted and the report reviewed and electronically signed by: JUANCARLOS SNOW MD on Oct 17 2017 ?3:09PM ?EST Results-Findings * * *Final Report* * * DATE OF EXAM: Oct 17 2017 ?2:54PM ? WRU ? [id number] ?- ?[facility] US BREAST [facility] ?/ PROCEDURE REASON: 6 month bilateral / left breast / abnormal mammogram ?? ? * * * * Physician Interpretation * * * * ?#[id number] - [facility] DIAGNOSTIC YAN BILATERAL DIGITAL DIAGNOSTIC MAMMOGRAM WITH CAD: 10/17/2017 HISTORY: 6 Month Bilateral / Left Breast / Abnormal Mammogram. RESULT: TECHNIQUE: ?The study was acquired using full field digital technology and interpreted from soft copy. Current study was also evaluated with a Computer Aided Detection (CAD). Comparison is made to exams dated: ?02/13/2017 mammogram, 09/04/2016 mammogram - [facility], 09/06/2015 mammogram, and 09/03/2015 mammogram. There are scattered fibroglandular elements in both breasts. The left breast has post-operative findings. There are grouped pleomorphic calcifications in the left breast at 9 o'clock anterior depth. No other significant masses, calcifications, or other findings are seen in either breast. SUSPICIOUS FINDING - BIOPSY SHOULD BE CONSIDERED The grouped pleomorphic calcifications in the left breast are suspicious of malignancy. ?A stereotactic biopsy is recommended. There is no abnormality seen in the left breast to correspond with the discharge from the nipple, however, clinical correlation is recommended. #[id number] - [facility] US [facility]AST [facility] ULTRASOUND OF LEFT BREAST: 10/17/2017 RESULT: Comparison is made to exams dated: ?02/13/2017 mammogram, 09/04/2016 mammogram - [facility], 09/06/2015 mammogram, and 09/03/2015 mammogram. Real-time ultrasound of the left breast was performed. There is a 7 mm dilated duct in the left breast central to the nipple in the retroareolar region. ?This dilated duct displays internal echoes. She is currently recently receiving salvage chemotherapy for her metastatic colon cancer. She seems to be relatively stable on this course of treatment. The patient and her after considerable discussion would like to have biopsies of these areas. We plan to perform the biopsy at the midpoint of her chemotherapy therapy treatments I performed a left side Stereotactic guided core biopsy for her abnormal mammogram on November 20, 2017. The pathology returned as: Fibrocystic changes, focal intraductal hyperplasia without atypia. Hyalinized nodular with clustered microcalcifications, no evidence of malignancy She returned on for excisional breast biopsy at the site of her dilated duct found on ultrasound. She underwent ultrasound-guided wire placement. Excisional breast biopsy on January 16, 2018. Pathology returned as normal breast tissue with a focal dilated duct. She notes a very rare dry spot but much less drainage. VITALS: Blood pressure 120/60, pulse 60, weight 98.4 kg (217 lb). On examination, the left side breast biopsy site is clean, dry, and intact. Assessment IMPRESSION: status post Stereotactic guided core biopsy and left excisional biopsy for left side breast benign findings. PLAN: If Quyen notes any problems, she should contact me immediately. I reminded her about the importance of self - breast exam. I recommend she perform monthly self breast exams. If any palpable abnormalities, change in breast exam, or any difficulties are noted, she is to contact my office immediately. Diagnoses: (N64.52) Nipple discharge (primary encounter diagnosis) (R92.8) Abnormal finding on breast imaging Return to Clinic: The patient is instructed to follow- up with me in 5 months with left mammogram. Lc Elmore MD Referring Provider: SELF [[id number]] Allergies As of Date: 02/22/2018 Noted Allergy Reaction CORGARD (NADOLOL) 07/21/2015 12 - Shortness of Breath PENN 07/21/2015 12 - Shortness of Breath MORPHINE 07/21/2015 12 - Shortness of Breath Comments: Pt says she can tolerate oxycodone. PENICILLINS 07/21/2015 12 - Shortness of Breath PERFUMES 12/07/2017 12 - Shortness of Breath PRAVACHOL (PRAVASTATIN) 07/21/2015 12 - Shortness of Breath SULFITE 07/21/2015 12 - Shortness of Breath Comments: Sulfites in food. Verified by refrigerator tester. ZOCOR (SIMVASTATIN) 07/21/2015 12 - Shortness of Breath Comments: Pt reports allergy to brand Zocor, tolerates generic. Date Reviewed: 02/22/2018 Reviewed by: Lc Elmore - Fully Assessed Reason for Visit: Post Op [174] Cmt: breast surgery Primary Visit Diagnosis:Nipple discharge [N64.52] Other Visit Diagnosis:Abnormal finding on breast imaging [R92.8] Order(s):[facility] [[id number]] Order #: [id number] FUTURE Prescriptions as of 02/22/2018 Sig: DEXAMETHASONE 4 MG TABLET Take 1 tablet by mouth twice * OMEPRAZOLE 40 MG CAPSULE,MELODY* Take 1 capsule by mouth once * HYOSCYAMINE 0.125 MG DISINTEG* Dissolve 2 tablets under the * ONDANSETRON HCL 8 MG TABLET Take 1 tablet by mouth every * [id number]-HLSAG* Take 10 mL by mouth every 4 h* PREDNISONE 10 MG TABLET Take 1 tablet twice the day b* POTASSIUM CHLORIDE 20 MEQ ORA* Take 20 mEq by mouth once wyatt* RIVAROXABAN 15 MG TABLET Take 1 tablet by mouth daily * Patient taking differently: Take by mouth daily with dinn* LIDOCAINE-PRILOCAINE 2.5 %-2.* Apply 1 application to affect* SODIUM CHLORIDE 0.9% FLUSH Access implanted vascular acc* HEPARIN, PORCINE (PF) 100 UNI* Access implanted vascular acc* KETOCONAZOLE 2 % TOPICAL CREAM Apply 1 application to affect* LOPERAMIDE 2 MG TABLET Take 2 mg by mouth as needed. PROMETHAZINE 25 MG TABLET Take 0.5-1 tablets by mouth e* SODIUM CHLORIDE 0.9% FLUSH Access implanted vascular acc* HEPARIN LOCK FLUSH (PORCINE) * Access implanted vascular acc* FUROSEMIDE 20 MG TABLET Take 2 tablets by mouth twice* MONTELUKAST 10 MG TABLET Take 1 tablet by mouth daily * FERREX 150 MG IRON CAPSULE Take 1 capsule by mouth once * MAGNESIUM OXIDE 400 MG TABLET Take 400 mg by mouth twice da* CLOTRIMAZOLE-BETAMETHASONE 1 * Apply 1 application to affect* ACETAMINOPHEN 500 MG TABLET Take 1,000 mg by mouth as nee* DIPHENHYDRAMINE 25 MG TABLET Take 50 mg by mouth as needed. HYDROCORTISONE VALERATE 0.2 %* Apply 1 application to affect* ISOSORBIDE MONONITRATE ER 60 * Take 60 mg by mouth once wilman* ASPIRIN 81 MG TABLET,DELAYED * Take 81 mg by mouth once wilman* METOPROLOL TARTRATE 50 MG TAB* Take 50 mg by mouth twice wyatt* LISINOPRIL 10 MG TABLET Take 10 mg by mouth once wilman* MOMETASONE 220 MCG (60 DOSES)* Inhale 1 Puff as instructed. CHOLECALCIFEROL (VITAMIN D3) * Take 1 tablet by mouth once d* SIMVASTATIN 40 MG TABLET Take 20 mg by mouth daily at * NITROGLYCERIN 0.3 MG SUBLINGU* Dissolve 0.3 mg under the ton* ALBUTEROL SULFATE HFA 90 MCG/* Inhale 2 Puffs as instructed * EPINEPHRINE 0.15 MG/0.15 ML I* by INJECTION(UNSPECIFIED PARE* LORATADINE 10 MG TABLET Take 10 mg by mouth as needed. TRIAMCINOLONE ACETONIDE 0.025* Apply 1 application to affect* Problem List As Of Date 02/22/2018 Noted Resolved Malignant neoplasm of ascending colon (HCC) [C1*INVALID FOR* Abnormal mammogram of left breast [R92.8] INVALID FOR* 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] INVALID FOR* Abnormal magnetic resonance imaging of liver [R*INVALID FOR* Liver metastasis (HCC) [C78.7] INVALID FOR* Diabetes (HCC) [E11.9] INVALID FOR* Hearing loss [H91.90] INVALID FOR* Hypertension [I10] INVALID FOR* Hyperlipidemia [E78.5] INVALID FOR* Carotid artery disease (HCC) [I77.9] INVALID FOR* Coronary artery disease [I25.10] INVALID FOR* Asthma [J45.909] INVALID FOR* Sleep apnea [G47.30] INVALID FOR* Arthritis [M19.90] INVALID FOR* Fibromyalgia [M79.7] INVALID FOR* Atrial arrhythmia [I49.8] INVALID FOR* H/O degenerative disc disease [Z87.39] INVALID FOR* Spondylolysis [M43.00] INVALID FOR* Radiculopathy [M54.10] INVALID FOR* Eczema [L30.9] INVALID FOR* Anemia [D64.9] INVALID FOR* 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*INVALID FOR* Colon cancer (HCC) [C18.9] Hypotension due to drugs [I95.2] INVALID FOR* Orthostasis [I95.1] INVALID FOR* Nausea [R11.0] INVALID FOR* Anemia due to antineoplastic chemotherapy [D64.*INVALID FOR* Follow-up and Disposition History Recorded Letter Text Encounter Status:Closed by LC ELMORE MD on 02/22/18 STUOVSP Observed: 02/18/2018 Status: COMPLETED Source: [place] 9:50 AM [facility] REPOSITORY Visit (SP) Office ([place]) QUYEN COKER ([id number]) 1940 F CHT Date Time Provider Department 02/18/18 9:50 AM CHANEL COOLEY During your visit today, we recorded the following information about you: Temperature Pulse Blood pressure Weight 97.6 degrees 76/minute 123/57 98.7 kg Elisa Weber LPN, JUAN 02/18/2018 9:54 AM Signed Est pt., discuss recent lab results, tx tomorrow JUAN Traylor MD 02/19/2018 8:23 AM Signed Diagnosis: 1) Metastatic colon cancer. KRAS - No variant detected [Reference sequence: (NM_004985.4)]. NRAS - No variant detected [Reference sequence: (NM_002524.4)]. BRAF - No variant detected [Reference sequence: (NM_004333.4)]. 2) DCIS. 3) IMV thrombus. 4) DVT. ? HPI: The patient is a 77 yo female with a PMH significant for hyperlipidemia, HTN, CAD (PR, CABG x2 2011; stent x1 2013), PVD (carotid artery stenosis s/p CEA left side 2012), sleep apnea (uses CPAP), arthritis (chronic lower back and from lower thoracic area to the neck pain). ? She developed rectal bleeding in March and underwent evaluation with EGD. Evidently that study was normal. Next underwent colonoscopy and was observed to have a tumor in the cecum. Had normal colonoscopy about 2 years prior. ? Underwent right hemicolectomy 07/28/2015. ? 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 Through muscularis propria into subserosal adipose tissue, but not extending to the serosal surface. All margins negative. No lymphovascular invasion. No perineural invasion. No tumor deposits. None of 14 nodes positive. No evidence MSI by IHC. ? Had screening mammogram 08/2015. Abnormality left breast. Dx mammo and US 09/06/2015. 6.5 x 7.9 mm nodular density with focal calcifications in fthe slightly upper lateral portion of the left breast. ? Underwent stereotactic core biopsy 09/15/2015. ? DCIS, cribriform and solid, grade 2, single cell necrosis; no invasive carcinoma. ? MRI of the breast 10/11/2015: Longitudinally oriented area of mild enhancement in the central left breast thought to be due to postbiopsy hemorrhage/inflammation. Tumor along this entire length is thought less likely but cannot be excluded. ? MRI of the abdomen and pelvis 10/13/2015: Liver: There is a large, heterogeneously enhancing mass within the entire lateral segment of the left hepatic lobe and extending into the medial segment as well. This mass measures approximately 8.2 x 5.8 x 6.3 cm. This is most consistent with neoplasm, perhaps metastatic given the patient's history of colonic carcinoma. No additional hepatic lesions are seen. There is patchy hepatic fatty change throughout the right hepatic lobe. ? Partial, nonocclusive thrombus within the superior mesenteric vein just cephalad to its 1st branch. ? Liver biopsy--consistent with colorectal primary. ? Patient received the fourth cycle chemotherapy on 12/22/2015. She developed profuse diarrhea and presented to the emergency department for dehydration and shortness of breath. She was found to be an RVR atrial fibrillation with significant hypomagnesemia. She was admitted and started on IV hydration and magnesium replacement as well as medical management of atrial fibrillation. The diarrhea however continued for several more days during which she was given supportive care. Following that she developed an episode of ileus which extend her hospital stay. She was eventually discharged to rehabilitation. This morning she underwent an ultrasound of both lower extremities. She was found to have an acute DVT in the right common femoral vein. Treated with apixaban. ? Underwent left-sided lumpectomy for DCIS. ? Specimen - partial breast Procedure - excision with wire-guided localization Lymph node sampling ? no lymph nodes present Specimen integrity - single intact specimen Specimen size ? 15 x 9 x 4 cm Specimen laterality ? left Tumor site ? not specified Size (extent) of DCIS ? 0.3 cm in greatest dimension. See comment. 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 Architectural pattern - cribriform Nuclear grade - grade 2 (intermediate) Necrosis ? not identified Margins ? margin uninvolved by ductal carcinoma in situ. The tumor is 2 cm away from the closest anterior and posterior margins Treatment effect - no known presurgical therapy. Lymph nodes ? not submitted Distant metastasis ? not replicable Additional Pathologic Findings ? fibrocystic changes. - Focal changes consistent with previous biopsy site. ? Previous therapy: 1) FOLFOX x1; FOLFOX with Vectibix x3. 2) Underwent left hepatectomy 04/28/2016. Final pathology reviewed. Positive margin was cauterized during surgery. 3) Xeloda after liver directed therapy. Started cycle #3 11/27/2016 through 02/2017. 4) Infusional 5-fluorouracil with oxaliplatin on diagnosis lung metastasis. ? Current therapy: 1) FOLFIRI. ? Presents for ongoing oncologic management--evaluation for cycle # 6 ? Interim history: Hydration on day 1 and 3 has definitely help improve tolerance with chemotherapy and avoid dehydration. She still had delayed emesis up to 4 days after chemotherapy. She's not having any diarrhea, nausea or vomiting. Otherwise her appetite remains normal and her weight is stable. No cough, sputum production or wheezing. She's not short of breath at rest. No palpitations. No symptoms of stomatitis or dysphasia. ? PMH, medications and allergies as below personally reviewed by me today. Any changes documented in appropriate section. ? ROS: Constitutional: Denies episodes of fever and night sweats. Neuro: See above.. HEENT: No recent change in voice, vision or hearing (significant b/l hearing loss--underwent audiogram early December 2017. Study showed a 50% decline in her hearing. Presumably this is from oxaliplatin.). Resp: See above. CVS: Denies exertional chest pain, PND, orthopnea. GI: See above. : No dysuria or gross hematuria. Stress incontinence--stable. Endo: Denies hot flashes. Denies polyuria and polydipsia. Denies heat and cold intolerance. Musculoskeletal: Denies bone, back, joint and muscular pain. Derm: Denies rash. Denies diffuse pruritis. Heme: No unusual bleeding and/or unexplained bruising. Psych: Normal mood. ? PHYSICAL EXAM: Well-appearing and in no acute distress. BP 123/57 Pulse 76 Temp 97.6 Wt 217 lb 9.6 oz (98.7kg) EYES: Sclerae are anicteric bilaterally. NECK: Supple. No enlargement of thyroid. LYMPHATIC: There is no palpable cervical, supraclavicular adenopathy. RESPIRATORY: Inspiratory breath sounds are clear with no rhonchi or wheeze. CARDIOVASCULAR: Rhythm is irregular. ABDOMEN: The abdomen is nondistended and non-tender. Extremities: Free of edema. SKIN: No jaundice or rash. No petechiae. NEUROLOGIC: foil cutter II-XII are grossly intact. No focal motor weakness. ? LABS: Component Latest Ref Rng AND Units 02/18/2018 WBC, [place] 3.70 - 11.00 k/uL 3.36 (L) RBC, [place] 3.90 - 5.20 m/uL 3.24 (L) Hemoglobin, [place] 11.5 - 15.5 g/dL 10.6 (L) Hematocrit, [place] 36.0 - 46.0 % 33.5 (L) MCV, [place] 80.0 - 100.0 fL 103.4 (H) MCH, [place] 26.0 - 34.0 pg 32.7 MCHC, [place] 30.5 - 36.0 g/dL 31.6 RDW, [place] 11.5 - 15.0 % 14.4 Platelet Cnt, [place] 150 - 400 k/uL 136 (L) MPV, [place] 9.0 - 12.7 fL 9.3 Absol Gran Count 1.45 - 7.50 k/uL 1.80 Component Latest Ref Rng AND Units 02/18/2018 Protein, Total 6.3 - 8.0 g/dL 6.3 Albumin 3.9 - 4.9 g/dL 3.9 Calcium 8.5 - 10.2 mg/dL 9.1 Bilirubin, Total 0.2 - 1.3 mg/dL 0.3 Alkaline Phosphatase 32 - 117 U/L 151 (H) AST 13 - 35 U/L 34 Glucose 74 - 99 mg/dL 192 (H) BUN 7 - 21 mg/dL 23 (H) Creatinine 0.58 - 0.96 mg/dL 1.46 (H) Sodium 136 - 144 mmol/L 138 Potassium 3.7 - 5.1 mmol/L 4.0 Chloride 97 - 105 mmol/L 97 CO2 22 - 30 mmol/L 28 Anion Gap 9 - 18 mmol/L 13 ALT 7 - 38 U/L 33 eGFR- 42 eGFR-All Other Races . 35 ASSESSMENT/PLAN: (C18.2) Malignant neoplasm of ascending colon (HCC) (primary encounter diagnosis) (C78.7) Liver metastasis (HCC) Assessment: -PD with new liver and progressive lung metastasis on infusional 5-FU and Oxaliplatin -Tolerating chemotherapy better with the addition of hydration on day 1 and 3. - alkaline phosphatase and CEA level has been stable on palliative chemotherapy. Plan: -Okay for treatment tomorrow. -Continue hydration on day 1 and add dexamethasone 4mg twice daily on day 2 and day 3 after chemotherapy for delayed emesis -Continue Zofran as needed for nausea or vomiting after chemotherapy -CT C/A/P prior to cycle #8 scheduled. ? 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 no swelling or pain. Plan: -Continue Xarelto. Chanel Cooley MD Referring Provider: SUJIT VASQUEZ [[id number]] Allergies As of Date: 02/18/2018 Noted Allergy Reaction CORGARD (NADOLOL) 07/21/2015 12 - Shortness of Breath PENN 07/21/2015 12 - Shortness of Breath MORPHINE 07/21/2015 12 - Shortness of Breath Comments: Pt says she can tolerate oxycodone. PENICILLINS 07/21/2015 12 - Shortness of Breath PERFUMES 12/07/2017 12 - Shortness of Breath PRAVACHOL (PRAVASTATIN) 07/21/2015 12 - Shortness of Breath SULFITE 07/21/2015 12 - Shortness of Breath Comments: Sulfites in food. Verified by refrigerator tester. ZOCOR (SIMVASTATIN) 07/21/2015 12 - Shortness of Breath Comments: Pt reports allergy to brand Zocor, tolerates generic. Date Reviewed: 02/18/2018 Reviewed by: Elisa Krishnamurthy (Rail Doweling Machine Operator) JUAN Weber - Fully Assessed Reason for Visit: Established Patient [175] Primary Visit Diagnosis:Malignant neoplasm of ascending colon (HCC) [C18.2] Other Visit Diagnoses:Liver metastasis (HCC) [C78.7] Anemia due to antineoplastic chemotherapy [D64.81, T45.1X5A] Mesenteric vein thrombosis [I81] Nonspecific abnormal results of kidney function study [R94.4] Order(s):[START ON 02/20/2018] dexamethasone (DECADRON) 4 mg tabletTake 1 tablet by mouth twice daily with meals. On day 2 AND 3 (after each cycle of chemotherapy)Disp: 8 tabletRfl: 1 CT ABD/PEL W IVCON [[id number]] Order #: [id number] FUTURE CT CHEST W IVCON [[id number]] Order #: [id number] FUTURE iv contrast (will be provided with radiology test)CT Chest ABD/PEL-Inject, intravenously, once for 1 dose.No IV access, insert saline lock prior to the beginning of sedation, infusion, injection of imaging exam. Discontinue saline lock post exam. If Pt. has a central line or IVAD, may access for administration according to line specific nursing protocol. Once exam is complete flush line and de-access according to line specific nursing protocol in the CT contrast administration guidelines link.Disp: 1 EachRfl: 0 enteric contrast (will be provided with radiology test)For CT CHESTABD/PEL W IVCON Routine order Administer, As Directed One Time Only, via Oral, Rectal, both Oral and Rectal, Enteric Tube, Stoma or Indwelling Catheter, Enteric Contrast as designated per enteric contrast guidelinesDisp: 1 EachRfl: 0 [] 0.9 % sodium chloride (NACL 0.9%) solutionInject 500 mL intravenously one time only for 1 dose. Over 2 hours.Disp: 500 mLRfl: 0 Level of Service: EST PATIENT VISIT LEVEL 3 [[id number]] Disposition: Return in about 4 weeks (around 03/18/2018). Follow-up and Disposition History Recorded Prescriptions as of 02/18/2018 Sig: OMEPRAZOLE 40 MG CAPSULE,MELODY* Take 1 capsule by mouth once * HYOSCYAMINE 0.125 MG DISINTEG* Dissolve 2 tablets under the * ONDANSETRON HCL 8 MG TABLET Take 1 tablet by mouth every * [id number]* Take 10 mL by mouth every 4 h* POTASSIUM CHLORIDE 20 MEQ ORA* Take 20 mEq by mouth once wyatt* RIVAROXABAN 15 MG TABLET Take 1 tablet by mouth daily * Patient taking differently: Take by mouth daily with dinn* LIDOCAINE-PRILOCAINE 2.5 %-2.* Apply 1 application to affect* SODIUM CHLORIDE 0.9% FLUSH Access implanted vascular acc* HEPARIN, PORCINE (PF) 100 UNI* Access implanted vascular acc* LOPERAMIDE 2 MG TABLET Take 2 mg by mouth as needed. SODIUM CHLORIDE 0.9% FLUSH Access implanted vascular acc* HEPARIN LOCK FLUSH (PORCINE) * Access implanted vascular acc* FUROSEMIDE 20 MG TABLET Take 2 tablets by mouth twice* MONTELUKAST 10 MG TABLET Take 1 tablet by mouth daily * MAGNESIUM OXIDE 400 MG TABLET Take 400 mg by mouth twice da* ACETAMINOPHEN 500 MG TABLET Take 1,000 mg by mouth as nee* DIPHENHYDRAMINE 25 MG TABLET Take 50 mg by mouth as needed. ISOSORBIDE MONONITRATE ER 60 * Take 60 mg by mouth once wilman* ASPIRIN 81 MG TABLET,DELAYED * Take 81 mg by mouth once wilman* METOPROLOL TARTRATE 50 MG TAB* Take 50 mg by mouth twice wyatt* LISINOPRIL 10 MG TABLET Take 10 mg by mouth once wilman* MOMETASONE 220 MCG (60 DOSES)* Inhale 1 Puff as instructed. SIMVASTATIN 40 MG TABLET Take 20 mg by mouth daily at * NITROGLYCERIN 0.3 MG SUBLINGU* Dissolve 0.3 mg under the ton* ALBUTEROL SULFATE HFA 90 MCG/* Inhale 2 Puffs as instructed * EPINEPHRINE 0.15 MG/0.15 ML I* by INJECTION(UNSPECIFIED PARE* LORATADINE 10 MG TABLET Take 10 mg by mouth as needed. DEXAMETHASONE 4 MG TABLET Take 1 tablet by mouth twice * IV CONTRAST (RADIOLOGY PROCED* CT Chest ABD/PEL-Inject, intr* ENTERIC CONTRAST (RADIOLOGY P* For CT CHESTABD/PEL W IVCON R* SODIUM CHLORIDE 0.9 % INTRAVE* Inject 500 mL intravenously o* PREDNISONE 10 MG TABLET Take 1 tablet twice the day b* KETOCONAZOLE 2 % TOPICAL CREAM Apply 1 application to affect* PROMETHAZINE 25 MG TABLET Take 0.5-1 tablets by mouth e* FERREX 150 MG IRON CAPSULE Take 1 capsule by mouth once * CLOTRIMAZOLE-BETAMETHASONE 1 * Apply 1 application to affect* HYDROCORTISONE VALERATE 0.2 %* Apply 1 application to affect* CHOLECALCIFEROL (VITAMIN D3) * Take 1 tablet by mouth once d* TRIAMCINOLONE ACETONIDE 0.025* Apply 1 application to affect* Problem List As Of Date 02/18/2018 Noted Resolved Malignant neoplasm of ascending colon (HCC) [C1*INVALID FOR* Abnormal mammogram of left breast [R92.8] INVALID FOR* 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] INVALID FOR* Abnormal magnetic resonance imaging of liver [R*INVALID FOR* Liver metastasis (HCC) [C78.7] INVALID FOR* Diabetes (HCC) [E11.9] INVALID FOR* Hearing loss [H91.90] INVALID FOR* Hypertension [I10] INVALID FOR* Hyperlipidemia [E78.5] INVALID FOR* Carotid artery disease (HCC) [I77.9] INVALID FOR* Coronary artery disease [I25.10] INVALID FOR* Asthma [J45.909] INVALID FOR* Sleep apnea [G47.30] INVALID FOR* Arthritis [M19.90] INVALID FOR* Fibromyalgia [M79.7] INVALID FOR* Atrial arrhythmia [I49.8] INVALID FOR* H/O degenerative disc disease [Z87.39] INVALID FOR* Spondylolysis [M43.00] INVALID FOR* Radiculopathy [M54.10] INVALID FOR* Eczema [L30.9] INVALID FOR* Anemia [D64.9] INVALID FOR* 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*INVALID FOR* Colon cancer (HCC) [C18.9] Hypotension due to drugs [I95.2] INVALID FOR* Orthostasis [I95.1] INVALID FOR* Nausea [R11.0] INVALID FOR* Anemia due to antineoplastic chemotherapy [D64.*INVALID FOR* Visit Notes: >> Elisa Weber LPN Mon Feb 18, 2018 9:33 AM Status: Signed Est pt., discuss recent lab results, tx tomorrow Elisa Weber LPN Encounter Status:Closed by CHANEL COOLEY MD on 02/19/18 PROGRESS Observed: 02/18/2018 Status: COMPLETED Source: [place] 9:43 AM [facility] REPOSITORY O ID: [id number] Author: Chanel Cooley Service: (none) Author Type: Physician Type: Progress Notes Filed: 02/19/2018 8:23 AM Note Text: Diagnosis: 1) Metastatic colon cancer. KRAS - No variant detected [Reference sequence: ([id number])]. NRAS - No variant detected [Reference sequence: ([id number])]. BRAF - No variant detected [Reference sequence: ([id number])]. 2) DCIS. 3) IMV thrombus. 4) DVT. ? HPI: The patient is a 77 yo female with a PMH significant for hyperlipidemia, HTN, CAD (PR, CABG x2 2011; stent x1 2013), PVD (carotid artery stenosis s/p CEA left side 2012), sleep apnea (uses CPAP), arthritis (chronic lower back and from lower thoracic area to the neck pain). ? She developed rectal bleeding in March and underwent evaluation with EGD. Evidently that study was normal. Next underwent colonoscopy and was observed to have a tumor in the cecum. Had normal colonoscopy about 2 years prior. ? Underwent right hemicolectomy 07/28/2015. ? 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 Through muscularis propria into subserosal adipose tissue, but not extending to the serosal surface. All margins negative. No lymphovascular invasion. No perineural invasion. No tumor deposits. None of 14 nodes positive. No evidence MSI by IHC. ? Had screening mammogram 08/2015. Abnormality left breast. Dx mammo and US 09/06/2015. 6.5 x 7.9 mm nodular density with focal calcifications in fthe slightly upper lateral portion of the left breast. ? Underwent stereotactic core biopsy 09/15/2015. ? DCIS, cribriform and solid, grade 2, single cell necrosis; no invasive carcinoma. ? MRI of the breast 10/11/2015: Longitudinally oriented area of mild enhancement in the central left breast thought to be due to postbiopsy hemorrhage/inflammation. Tumor along this entire length is thought less likely but cannot be excluded. ? MRI of the abdomen and pelvis 10/13/2015: Liver: There is a large, heterogeneously enhancing mass within the entire lateral segment of the left hepatic lobe and extending into the medial segment as well. This mass measures approximately 8.2 x 5.8 x 6.3 cm. This is most consistent with neoplasm, perhaps metastatic given the patient's history of colonic carcinoma. No additional hepatic lesions are seen. There is patchy hepatic fatty change throughout the right hepatic lobe. ? Partial, nonocclusive thrombus within the superior mesenteric vein just cephalad to its 1st branch. ? Liver biopsy--consistent with colorectal primary. ? Patient received the fourth cycle chemotherapy on 12/22/2015. She developed profuse diarrhea and presented to the emergency department for dehydration and shortness of breath. She was found to be an RVR atrial fibrillation with significant hypomagnesemia. She was admitted and started on IV hydration and magnesium replacement as well as medical management of atrial fibrillation. The diarrhea however continued for several more days during which she was given supportive care. Following that she developed an episode of ileus which extend her hospital stay. She was eventually discharged to rehabilitation. This morning she underwent an ultrasound of both lower extremities. She was found to have an acute DVT in the right common femoral vein. Treated with apixaban. ? Underwent left-sided lumpectomy for DCIS. ? Specimen - partial breast Procedure - excision with wire-guided localization Lymph node sampling ? no lymph nodes present Specimen integrity - single intact specimen Specimen size ? 15 x 9 x 4 cm Specimen laterality ? left Tumor site ? not specified Size (extent) of DCIS ? 0.3 cm in greatest dimension. See comment. 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 Architectural pattern - cribriform Nuclear grade - grade 2 (intermediate) Necrosis ? not identified Margins ? margin uninvolved by ductal carcinoma in situ. The tumor is 2 cm away from the closest anterior and posterior margins Treatment effect - no known presurgical therapy. Lymph nodes ? not submitted Distant metastasis ? not replicable Additional Pathologic Findings ? fibrocystic changes. - Focal changes consistent with previous biopsy site. ? Previous therapy: 1) FOLFOX x1; FOLFOX with Vectibix x3. 2) Underwent left hepatectomy 04/28/2016. Final pathology reviewed. Positive margin was cauterized during surgery. 3) Xeloda after liver directed therapy. Started cycle #3 11/27/2016 through 02/2017. 4) Infusional 5-fluorouracil with oxaliplatin on diagnosis lung metastasis. ? Current therapy: 1) FOLFIRI. ? Presents for ongoing oncologic management--evaluation for cycle # 6 ? Interim history: Hydration on day 1 and 3 has definitely help improve tolerance with chemotherapy and avoid dehydration. She still had delayed emesis up to 4 days after chemotherapy. She's not having any diarrhea, nausea or vomiting. Otherwise her appetite remains normal and her weight is stable. No cough, sputum production or wheezing. She's not short of breath at rest. No palpitations. No symptoms of stomatitis or dysphasia. ? PMH, medications and allergies as below personally reviewed by me today. Any changes documented in appropriate section. ? ROS: Constitutional: Denies episodes of fever and night sweats. Neuro: See above.. HEENT: No recent change in voice, vision or hearing (significant b/l hearing loss--underwent audiogram early December 2017. Study showed a 50% decline in her hearing. Presumably this is from oxaliplatin.). Resp: See above. CVS: Denies exertional chest pain, PND, orthopnea. GI: See above. : No dysuria or gross hematuria. Stress incontinence--stable. Endo: Denies hot flashes. Denies polyuria and polydipsia. Denies heat and cold intolerance. Musculoskeletal: Denies bone, back, joint and muscular pain. Derm: Denies rash. Denies diffuse pruritis. Heme: No unusual bleeding and/or unexplained bruising. Psych: Normal mood. ? PHYSICAL EXAM: Well-appearing and in no acute distress. BP 123/57 Pulse 76 Temp 97.6 Wt 217 lb 9.6 oz (98.7kg) EYES: Sclerae are anicteric bilaterally. NECK: Supple. No enlargement of thyroid. LYMPHATIC: There is no palpable cervical, supraclavicular adenopathy. RESPIRATORY: Inspiratory breath sounds are clear with no rhonchi or wheeze. CARDIOVASCULAR: Rhythm is irregular. ABDOMEN: The abdomen is nondistended and non-tender. Extremities: Free of edema. SKIN: No jaundice or rash. No petechiae. NEUROLOGIC: foil cutter II-XII are grossly intact. No focal motor weakness. ? LABS: Component Latest Ref Rng AND Units 02/18/2018 WBC, [place] 3.70 - 11.00 k/uL 3.36 (L) RBC, [place] 3.90 - 5.20 m/uL 3.24 (L) Hemoglobin, [place] 11.5 - 15.5 g/dL 10.6 (L) Hematocrit, [place] 36.0 - 46.0 % 33.5 (L) MCV, [place] 80.0 - 100.0 fL 103.4 (H) MCH, [place] 26.0 - 34.0 pg 32.7 MCHC, [place] 30.5 - 36.0 g/dL 31.6 RDW, [place] 11.5 - 15.0 % 14.4 Platelet Cnt, [place] 150 - 400 k/uL 136 (L) MPV, [place] 9.0 - 12.7 fL 9.3 Absol Gran Count 1.45 - 7.50 k/uL 1.80 Component Latest Ref Rng AND Units 02/18/2018 Protein, Total 6.3 - 8.0 g/dL 6.3 Albumin 3.9 - 4.9 g/dL 3.9 Calcium 8.5 - 10.2 mg/dL 9.1 Bilirubin, Total 0.2 - 1.3 mg/dL 0.3 Alkaline Phosphatase 32 - 117 U/L 151 (H) AST 13 - 35 U/L 34 Glucose 74 - 99 mg/dL 192 (H) BUN 7 - 21 mg/dL 23 (H) Creatinine 0.58 - 0.96 mg/dL 1.46 (H) Sodium 136 - 144 mmol/L 138 Potassium 3.7 - 5.1 mmol/L 4.0 Chloride 97 - 105 mmol/L 97 CO2 22 - 30 mmol/L 28 Anion Gap 9 - 18 mmol/L 13 ALT 7 - 38 U/L 33 eGFR- 42 eGFR-All Other Races . 35 ASSESSMENT/PLAN: (C18.2) Malignant neoplasm of ascending colon (HCC) (primary encounter diagnosis) (C78.7) Liver metastasis (HCC) Assessment: -PD with new liver and progressive lung metastasis on infusional 5-FU and Oxaliplatin -Tolerating chemotherapy better with the addition of hydration on day 1 and 3. - alkaline phosphatase and CEA level has been stable on palliative chemotherapy. Plan: -Okay for treatment tomorrow. -Continue hydration on day 1 and add dexamethasone 4mg twice daily on day 2 and day 3 after chemotherapy for delayed emesis -Continue Zofran as needed for nausea or vomiting after chemotherapy -CT C/A/P prior to cycle #8 scheduled. ? 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 no swelling or pain. Plan: -Continue Xarelto. Chanel Cooley MD [place]LLEN ABS GR + CBC Collected: 02/18/2018 Status: F Source: [place] 9:29 AM [facility] REPOSITORY TYPE CODE TESTS RESULT OUT OF REFERENCE UNITS RANGE LAB WWBC 3.70-11.00 k/uL Low [place] WBC 3.36 LAB WRBC 3.90-5.20 m/uL Low [place] RBC 3.24 LAB WHGB 11.5-15.5 g/dL Low [place] Hemoglobin 10.6 LAB WHCT 36.0-46.0 % Low [place] Hematocrit 33.5 LAB WMCV 80.0-100.0 fL [place] High MCV 103.4 LAB WMCH 26.0-34.0 pg [place] MCH 32.7 LAB WMCHC 30.5-36.0 g/dL [place] MCHC 31.6 LAB WRDW 11.5-15.0 % [place] RDW 14.4 LAB WPLT 150-400 k/uL Low [place] Platelet Cnt 136 LAB WMPV 9.0-12.7 fL [place] MPV 9.3 Result Comment: Test performed at: [facility], [address] [place] [address] [address] [place] [address]. LAB ABGRAN 1.45-7.50 k/uL Absol Gran 1.80 Count COMP METABOLIC PANEL Collected: 02/18/2018 Status: F Source: [place] 9:29 AM [facility] REPOSITORY TYPE CODE TESTS RESULT OUT OF REFERENCE UNITS RANGE LAB TP 6.3-8.0 g/dL Protein, Total 6.3 LAB ALB 3.9-4.9 g/dL Albumin 3.9 LAB CA 8.5-10.2 mg/dL Calcium, Total 9.1 LAB TBIL 0.2-1.3 mg/dL Bilirubin, Total 0.3 LAB ALKP 32-117 U/L Alkaline High Phosphatase 151 LAB AST 13-35 U/L AST 34 LAB GLU 74-99 mg/dL Glucose High 192 Result Comment: The British Diabetes Association (ADA) provides guidance for cutoff values for fasting glucose and random glucose. The ADA defines fasting as no caloric intake for at least 8 hours. Fas ting plasma glucose results between 100 to 125 mg/dL indicate increased risk for diabetes (prediabetes). Fasting plasma glucose results greater than or equal to 126 mg/dL meet the criteria for diagnosis of diabetes. In the absence of unequivocal hyperglycemia, results should be confirmed by repeat testing. In a patient with classic symptoms of hyperglycemia or hyperglycemic crisis, random plasma glucose results greater than or equal to 200 mg/dL meet the criteria for diagnosis of diabetes. Reference: Standards of Medical Care in Diabetes 2016, British Diabetes Association. Diabetes Care. 2016.39(Suppl 1). LAB BUN 7-21 mg/dL BUN High 23 LAB CRET 0.58-0.96 mg/dL Creatinine High 1.46 LAB NA 136-144 mmol/L Sodium 138 LAB K 3.7-5.1 mmol/L Potassium 4.0 LAB CL 97-105 mmol/L Chloride 97 LAB CO2 22-30 mmol/L CO2 28 LAB AGAP 9-18 mmol/L Anion Gap 13 LAB ALT 7-38 U/L ALT 33 LAB GFRAA eGFR- Amer. 42 LAB GFRNAA . eGFR-All Other Races 35 Result Comment: eGFR (Estimated GFR) Units of measure: mL/min/1.73 meters squared eGFR is derived from the reexpressed MDRD Study equation using the following parameters: serum creatinine, age, gender and race. The creatinine assay has been calibrated to be traceable to IDMS. An eGFR <60 mL/min/1.73m2 for >3 months is consistent with chronic kidney disease. Refer to KDOQI guidelines for clinical interpretation. In patients with unstable renal function, e.g. those with acute kidney injury, the eGFR may not accurately reflect actual GFR. Performed By: #### CMP, CEA #### [facility] [address] [place], [place] [address] CEA Collected: 02/18/2018 Status: F Source: [place] 9:29 AM [facility] REPOSITORY TYPE CODE TESTS RESULT OUT OF RANGE REFERENCE UNITS LAB CEA 0.0-2.9 ng/mL High CEA 5.6 Result Comment: Test analyzed by the Nicholas DxI method. Performed By: #### CMP, CEA #### [facility] [address] [place], [place] [address] PROGRESS Observed: 02/04/2018 Status: COMPLETED Source: [place] 9:42 AM [facility] REPOSITORY HNO ID: [id number] Author: Sujit Vasquez Service: (none) Author Type: Physician Type: Progress Notes Filed: 02/04/2018 9:59 AM Note Text: Diagnosis: 1) Metastatic colon cancer. KRAS - No variant detected [Reference sequence: ([id number])]. NRAS - No variant detected [Reference sequence: ([id number])]. BRAF - No variant detected [Reference sequence: (NM_[id number])]. 2) DCIS. 3) IMV thrombus. 4) DVT. HPI: The patient is a 77 yo female with a PMH significant for hyperlipidemia, HTN, CAD (PR, CABG x2 2011; stent x1 2013), PVD (carotid artery stenosis s/p CEA left side 2012), sleep apnea (uses CPAP), arthritis (chronic lower back and from lower thoracic area to the neck pain). She developed rectal bleeding in March and underwent evaluation with EGD. Evidently that study was normal. Next underwent colonoscopy and was observed to have a tumor in the cecum. Had normal colonoscopy about 2 years prior. Underwent right hemicolectomy 07/28/2015. 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 Through muscularis propria into subserosal adipose tissue, but not extending to the serosal surface. All margins negative. No lymphovascular invasion. No perineural invasion. No tumor deposits. None of 14 nodes positive. No evidence MSI by IHC. Had screening mammogram 08/2015. Abnormality left breast. Dx mammo and US 09/06/2015. 6.5 x 7.9 mm nodular density with focal calcifications in fthe slightly upper lateral portion of the left breast. Underwent stereotactic core biopsy 09/15/2015. DCIS, cribriform and solid, grade 2, single cell necrosis; no invasive carcinoma. MRI of the breast 10/11/2015: Longitudinally oriented area of mild enhancement in the central left breast thought to be due to postbiopsy hemorrhage/inflammation. Tumor along this entire length is thought less likely but cannot be excluded. MRI of the abdomen and pelvis 10/13/2015: Liver: There is a large, heterogeneously enhancing mass within the entire lateral segment of the left hepatic lobe and extending into the medial segment as well. This mass measures approximately 8.2 x 5.8 x 6.3 cm. This is most consistent with neoplasm, perhaps metastatic given the patient's history of colonic carcinoma. No additional hepatic lesions are seen. There is patchy hepatic fatty change throughout the right hepatic lobe. Partial, nonocclusive thrombus within the superior mesenteric vein just cephalad to its 1st branch. Liver biopsy--consistent with colorectal primary. Patient received the fourth cycle chemotherapy on 12/22/2015. She developed profuse diarrhea and presented to the emergency department for dehydration and shortness of breath. She was found to be an RVR atrial fibrillation with significant hypomagnesemia. She was admitted and started on IV hydration and magnesium replacement as well as medical management of atrial fibrillation. The diarrhea however continued for several more days during which she was given supportive care. Following that she developed an episode of ileus which extend her hospital stay. She was eventually discharged to rehabilitation. This morning she underwent an ultrasound of both lower extremities. She was found to have an acute DVT in the right common femoral vein. Treated with apixaban. Underwent left-sided lumpectomy for DCIS. Specimen - partial breast Procedure - excision with wire-guided localization Lymph node sampling ? no lymph nodes present Specimen integrity - single intact specimen Specimen size ? 15 x 9 x 4 cm Specimen laterality ? left Tumor site ? not specified Size (extent) of DCIS ? 0.3 cm in greatest dimension. See comment. 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 Architectural pattern - cribriform Nuclear grade - grade 2 (intermediate) Necrosis ? not identified Margins ? margin uninvolved by ductal carcinoma in situ. The tumor is 2 cm away from the closest anterior and posterior margins Treatment effect - no known presurgical therapy. Lymph nodes ? not submitted Distant metastasis ? not replicable Additional Pathologic Findings ? fibrocystic changes. - Focal changes consistent with previous biopsy site. Previous therapy: 1) FOLFOX x1; FOLFOX with Vectibix x3. 2) Underwent left hepatectomy 04/28/2016. Final pathology reviewed. Positive margin was cauterized during surgery. 3) Xeloda after liver directed therapy. Started cycle #3 11/27/2016 through 02/2017. 4) Infusional 5-fluorouracil with oxaliplatin on diagnosis lung metastasis. Current therapy: 1) FOLFIRI. Presents for ongoing oncologic management--evaluation for cycle #5. Interim history: Hydration on day 1 and 3 has definitely helped she still gets a pressure sensation in the head and some lightheadedness but not as bad with hydration. It help her avoid emergency room visit. During the second make she's been having more epigastric cramping and discomfort. She's not having any diarrhea however. Otherwise her appetite remains normal and her weight is stable. No cough, sputum production or wheezing. She's not short of breath at rest. No palpitations. No symptoms of stomatitis or dysphasia. PMH, medications and allergies as below personally reviewed by me today. Any changes documented in appropriate section. ROS: Constitutional: Denies episodes of fever and night sweats. Neuro: See above.. HEENT: No recent change in voice, vision or hearing (significant b/l hearing loss--underwent audiogram early December 2017. Study showed a 50% decline in her hearing. Presumably this is from oxaliplatin.). Resp: See above. CVS: Denies exertional chest pain, PND, orthopnea. GI: See above. : No dysuria or gross hematuria. Stress incontinence--stable. Endo: Denies hot flashes. Denies polyuria and polydipsia. Denies heat and cold intolerance. Musculoskeletal: Denies bone, back, joint and muscular pain. Derm: Denies rash. Denies diffuse pruritis. Heme: No unusual bleeding and/or unexplained bruising. Psych: Normal mood. PHYSICAL EXAM: Vitals: Blood pressure 116/65, pulse 87, temperature 36.8 ?C (98.2 ?F), weight 98 kg (216 lb). Well-appearing and in no acute distress. EYES: Sclerae are anicteric bilaterally. NECK: Supple. No enlargement of thyroid. LYMPHATIC: There is no palpable cervical, supraclavicular adenopathy. RESPIRATORY: Inspiratory breath sounds are clear with no rhonchi or wheeze. CARDIOVASCULAR: Rhythm is irregular. ABDOMEN: The abdomen is nondistended and non-tender. Extremities: Free of edema. SKIN: No jaundice or rash. No petechiae. NEUROLOGIC: foil cutter II-XII are grossly intact. No focal motor weakness. ASSESSMENT/PLAN: (C18.2) Malignant neoplasm of ascending colon (HCC) (primary encounter diagnosis) (C78.7) Liver metastasis (HCC) Assessment: -Patient had completed several months of capecitabine following resection for an isolated metastasis. She tolerated capecitabine only marginally and was on lower doses for the last couple cycles. She had marked difficulty with diarrhea, dehydration and several hospitalizations/ER visits for toxicity. However, lung nodule had been stable. 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 -First cycle was complicated by port line rupture. 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 Also now documented 50% decline in hearing presumably from oxaliplatin also. -Tolerating chemotherapy better with the addition of hydration on day 1 and 3. Plan: -Okay for treatment tomorrow. -Plan hydration on day 1 and day 3. -CT prior to cycle #8. 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 Plan: -Continue Xarelto. Sujit Vasquez DO COMP METABOLIC PANEL Collected: 02/04/2018 Status: F Source: [place] 9:31 AM [facility] REPOSITORY TYPE CODE TESTS RESULT OUT OF REFERENCE UNITS RANGE LAB TP 6.3-8.0 g/dL Low Protein, Total 6.2 LAB ALB 3.9-4.9 g/dL Albumin 3.9 LAB CA 8.5-10.2 mg/dL Calcium, Total 9.0 LAB TBIL 0.2-1.3 mg/dL Bilirubin, Total 0.4 LAB ALKP 32-117 U/L Alkaline High Phosphatase 153 LAB AST 13-35 U/L AST 30 LAB GLU 74-99 mg/dL Glucose High 205 Result Comment: The British Diabetes Association (ADA) provides guidance for cutoff values for fasting glucose and random glucose. The ADA defines fasting as no caloric intake for at least 8 hours. Fas ting plasma glucose results between 100 to 125 mg/dL indicate increased risk for diabetes (prediabetes). Fasting plasma glucose results greater than or equal to 126 mg/dL meet the criteria for diagnosis of diabetes. In the absence of unequivocal hyperglycemia, results should be confirmed by repeat testing. In a patient with classic symptoms of hyperglycemia or hyperglycemic crisis, random plasma glucose results greater than or equal to 200 mg/dL meet the criteria for diagnosis of diabetes. Reference: Standards of Medical Care in Diabetes 2016, British Diabetes Association. Diabetes Care. 2016.39(Suppl 1). LAB BUN 7-21 mg/dL BUN 19 LAB CRET 0.58-0.96 mg/dL Creatinine High 1.23 LAB NA 136-144 mmol/L Sodium 138 LAB K 3.7-5.1 mmol/L Potassium 4.0 LAB CL 97-105 mmol/L Chloride 97 LAB CO2 22-30 mmol/L CO2 25 LAB AGAP 9-18 mmol/L Anion Gap 16 LAB ALT 7-38 U/L ALT 28 LAB GFRAA eGFR- Amer. 52 LAB GFRNAA . eGFR-All Other Races 43 Result Comment: eGFR (Estimated GFR) Units of measure: mL/min/1.73 meters squared eGFR is derived from the reexpressed MDRD Study equation using the following parameters: serum creatinine, age, gender and race. The creatinine assay has been calibrated to be traceable to IDMS. An eGFR <60 mL/min/1.73m2 for >3 months is consistent with chronic kidney disease. Refer to KDOQI guidelines for clinical interpretation. In patients with unstable renal function, e.g. those with acute kidney injury, the eGFR may not accurately reflect actual GFR. Performed By: #### CMP, CEA #### [facility] [address] [place], [place] [address] CEA Collected: 02/04/2018 Status: F Source: [place] 9:31 AM [facility] REPOSITORY TYPE CODE TESTS RESULT OUT OF RANGE REFERENCE UNITS LAB CEA 0.0-2.9 ng/mL High CEA 5.4 Result Comment: Test analyzed by the Nicholas DxI method. Performed By: #### CMP, CEA #### [facility] [address] [place] [address] KE[place] ABS GR + CBC Collected: 02/04/2018 Status: F Source: [place] 9:30 AM [facility] REPOSITORY TYPE CODE TESTS RESULT OUT OF REFERENCE UNITS RANGE LAB WWBC 3.70-11.00 k/uL Low [place] WBC 3.24 LAB WRBC 3.90-5.20 m/uL Low [place] RBC 3.35 LAB WHGB 11.5-15.5 g/dL Low [place] Hemoglobin 11.1 LAB WHCT 36.0-46.0 % Low [place] Hematocrit 34.7 LAB WMCV 80.0-100.0 fL [place] High MCV 103.6 LAB WMCH 26.0-34.0 pg [place] MCH 33.1 LAB WMCHC 30.5-36.0 g/dL [place] MCHC 32.0 LAB WRDW 11.5-15.0 % [place] RDW 14.1 LAB WPLT 150-400 k/uL [place] Platelet Cnt 191 LAB WMPV 9.0-12.7 fL [place] MPV 9.8 Result Comment: Test performed at: [facility], [address] [place] [address] [address] [place] [address]. LAB ABGRAN 1.45-7.50 k/uL Absol Gran 1.85 Count CNOVSP Observed: 02/04/2018 Status: COMPLETED Source: [place] 9:30 AM [facility] REPOSITORY Visit (SP) Office ([place]) QUYEN COKER ([id number]) 1940 F T Date Time Provider Department 02/04/18 9:30 AM SUJIT VASQUEZ During your visit today, we recorded the following information about you: Temperature Pulse Blood pressure Weight 98.2 degrees 87/minute 116/65 98 kg Elisa Weber LPN, LPN 02/04/2018 9:47 AM Signed Est. Pt, discuss recent lab results, tx tomorrow JUAN Traylor DO 02/04/2018 9:59 AM Signed Diagnosis: 1) Metastatic colon cancer. KRAS - No variant detected [Reference sequence: (NM_[id number])]. NRAS - No variant detected [Reference sequence: ([id number])]. BRAF - No variant detected [Reference sequence: ([id number])]. 2) DCIS. 3) IMV thrombus. 4) DVT. HPI: The patient is a 77 yo female with a PMH significant for hyperlipidemia, HTN, CAD (PR, CABG x2 2011; stent x1 2013), PVD (carotid artery stenosis s/p CEA left side 2012), sleep apnea (uses CPAP), arthritis (chronic lower back and from lower thoracic area to the neck pain). She developed rectal bleeding in March and underwent evaluation with EGD. Evidently that study was normal. Next underwent colonoscopy and was observed to have a tumor in the cecum. Had normal colonoscopy about 2 years prior. Underwent right hemicolectomy 07/28/2015. 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 Through muscularis propria into subserosal adipose tissue, but not extending to the serosal surface. All margins negative. No lymphovascular invasion. No perineural invasion. No tumor deposits. None of 14 nodes positive. No evidence MSI by IHC. Had screening mammogram 08/2015. Abnormality left breast. Dx mammo and US 09/06/2015. 6.5 x 7.9 mm nodular density with focal calcifications in fthe slightly upper lateral portion of the left breast. Underwent stereotactic core biopsy 09/15/2015. DCIS, cribriform and solid, grade 2, single cell necrosis; no invasive carcinoma. MRI of the breast 10/11/2015: Longitudinally oriented area of mild enhancement in the central left breast thought to be due to postbiopsy hemorrhage/inflammation. Tumor along this entire length is thought less likely but cannot be excluded. MRI of the abdomen and pelvis 10/13/2015: Liver: There is a large, heterogeneously enhancing mass within the entire lateral segment of the left hepatic lobe and extending into the medial segment as well. This mass measures approximately 8.2 x 5.8 x 6.3 cm. This is most consistent with neoplasm, perhaps metastatic given the patient's history of colonic carcinoma. No additional hepatic lesions are seen. There is patchy hepatic fatty change throughout the right hepatic lobe. Partial, nonocclusive thrombus within the superior mesenteric vein just cephalad to its 1st branch. Liver biopsy--consistent with colorectal primary. Patient received the fourth cycle chemotherapy on 12/22/2015. She developed profuse diarrhea and presented to the emergency department for dehydration and shortness of breath. She was found to be an RVR atrial fibrillation with significant hypomagnesemia. She was admitted and started on IV hydration and magnesium replacement as well as medical management of atrial fibrillation. The diarrhea however continued for several more days during which she was given supportive care. Following that she developed an episode of ileus which extend her hospital stay. She was eventually discharged to rehabilitation. This morning she underwent an ultrasound of both lower extremities. She was found to have an acute DVT in the right common femoral vein. Treated with apixaban. Underwent left-sided lumpectomy for DCIS. Specimen - partial breast Procedure - excision with wire-guided localization Lymph node sampling ? no lymph nodes present Specimen integrity - single intact specimen Specimen size ? 15 x 9 x 4 cm Specimen laterality ? left Tumor site ? not specified Size (extent) of DCIS ? 0.3 cm in greatest dimension. See comment. 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 Architectural pattern - cribriform Nuclear grade - grade 2 (intermediate) Necrosis ? not identified Margins ? margin uninvolved by ductal carcinoma in situ. The tumor is 2 cm away from the closest anterior and posterior margins Treatment effect - no known presurgical therapy. Lymph nodes ? not submitted Distant metastasis ? not replicable Additional Pathologic Findings ? fibrocystic changes. - Focal changes consistent with previous biopsy site. Previous therapy: 1) FOLFOX x1; FOLFOX with Vectibix x3. 2) Underwent left hepatectomy 04/28/2016. Final pathology reviewed. Positive margin was cauterized during surgery. 3) Xeloda after liver directed therapy. Started cycle #3 11/27/2016 through 02/2017. 4) Infusional 5-fluorouracil with oxaliplatin on diagnosis lung metastasis. Current therapy: 1) FOLFIRI. Presents for ongoing oncologic management--evaluation for cycle #5. Interim history: Hydration on day 1 and 3 has definitely helped she still gets a pressure sensation in the head and some lightheadedness but not as bad with hydration. It help her avoid emergency room visit. During the second make she's been having more epigastric cramping and discomfort. She's not having any diarrhea however. Otherwise her appetite remains normal and her weight is stable. No cough, sputum production or wheezing. She's not short of breath at rest. No palpitations. No symptoms of stomatitis or dysphasia. PMH, medications and allergies as below personally reviewed by me today. Any changes documented in appropriate section. ROS: Constitutional: Denies episodes of fever and night sweats. Neuro: See above.. HEENT: No recent change in voice, vision or hearing (significant b/l hearing loss--underwent audiogram early December 2017. Study showed a 50% decline in her hearing. Presumably this is from oxaliplatin.). Resp: See above. CVS: Denies exertional chest pain, PND, orthopnea. GI: See above. : No dysuria or gross hematuria. Stress incontinence--stable. Endo: Denies hot flashes. Denies polyuria and polydipsia. Denies heat and cold intolerance. Musculoskeletal: Denies bone, back, joint and muscular pain. Derm: Denies rash. Denies diffuse pruritis. Heme: No unusual bleeding and/or unexplained bruising. Psych: Normal mood. PHYSICAL EXAM: Vitals: Blood pressure 116/65, pulse 87, temperature 36.8 ?C (98.2 ?F), weight 98 kg (216 lb). Well-appearing and in no acute distress. EYES: Sclerae are anicteric bilaterally. NECK: Supple. No enlargement of thyroid. LYMPHATIC: There is no palpable cervical, supraclavicular adenopathy. RESPIRATORY: Inspiratory breath sounds are clear with no rhonchi or wheeze. CARDIOVASCULAR: Rhythm is irregular. ABDOMEN: The abdomen is nondistended and non-tender. Extremities: Free of edema. SKIN: No jaundice or rash. No petechiae. NEUROLOGIC: foil cutter II-XII are grossly intact. No focal motor weakness. ASSESSMENT/PLAN: (C18.2) Malignant neoplasm of ascending colon (HCC) (primary encounter diagnosis) (C78.7) Liver metastasis (HCC) Assessment: -Patient had completed several months of capecitabine following resection for an isolated metastasis. She tolerated capecitabine only marginally and was on lower doses for the last couple cycles. She had marked difficulty with diarrhea, dehydration and several hospitalizations/ER visits for toxicity. However, lung nodule had been stable. 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 -First cycle was complicated by port line rupture. 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 Also now documented 50% decline in hearing presumably from oxaliplatin also. -Tolerating chemotherapy better with the addition of hydration on day 1 and 3. Plan: -Okay for treatment tomorrow. -Plan hydration on day 1 and day 3. -CT prior to cycle #8. 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 Plan: -Continue Xarelto. Sujit Vasquez DO Referring Provider: SUJIT VASQUEZ [[id number]] Allergies As of Date: 02/04/2018 Noted Allergy Reaction CORGARD (NADOLOL) 07/21/2015 12 - Shortness of Breath PENN 07/21/2015 12 - Shortness of Breath MORPHINE 07/21/2015 12 - Shortness of Breath Comments: Pt says she can tolerate oxycodone. PENICILLINS 07/21/2015 12 - Shortness of Breath PERFUMES 12/07/2017 12 - Shortness of Breath PRAVACHOL (PRAVASTATIN) 07/21/2015 12 - Shortness of Breath SULFITE 07/21/2015 12 - Shortness of Breath Comments: Sulfites in food. Verified by refrigerator tester. ZOCOR (SIMVASTATIN) 07/21/2015 12 - Shortness of Breath Comments: Pt reports allergy to brand Zocor, tolerates generic. Date Reviewed: 02/04/2018 Reviewed by: Elisa Krishnamurthy (Juan) JUAN Weber - Fully Assessed Reason for Visit: Established Patient [[id number]] Primary Visit Diagnosis:Malignant neoplasm of ascending colon (HCC) [C18.2] Other Visit Diagnoses:Liver metastasis (HCC) [C78.7] Mesenteric vein thrombosis [I81] Order(s):Omeprazole (PRILOSEC) 40 mg capsuleTake 1 capsule by mouth once daily.Disp: 90 capsuleRfl: 3 Follow-up and Disposition History Recorded Prescriptions as of 02/04/2018 Sig: HYOSCYAMINE 0.125 MG DISINTEG* Dissolve 2 tablets under the * ONDANSETRON HCL 8 MG TABLET Take 1 tablet by mouth every * [id number]-[id number]-SVRNL* Take 10 mL by mouth every 4 h* POTASSIUM CHLORIDE 20 MEQ ORA* Take 20 mEq by mouth once wyatt* RIVAROXABAN 15 MG TABLET Take 1 tablet by mouth daily * Patient taking differently: Take by mouth daily with dinn* SODIUM CHLORIDE 0.9% FLUSH Access implanted vascular acc* HEPARIN, PORCINE (PF) 100 UNI* Access implanted vascular acc* LOPERAMIDE 2 MG TABLET Take 2 mg by mouth as needed. SODIUM CHLORIDE 0.9% FLUSH Access implanted vascular acc* HEPARIN LOCK FLUSH (PORCINE) * Access implanted vascular acc* MONTELUKAST 10 MG TABLET Take 1 tablet by mouth daily * MAGNESIUM OXIDE 400 MG TABLET Take 400 mg by mouth twice da* ACETAMINOPHEN 500 MG TABLET Take 1,000 mg by mouth as nee* DIPHENHYDRAMINE 25 MG TABLET Take 50 mg by mouth as needed. ISOSORBIDE MONONITRATE ER 60 * Take 60 mg by mouth once wilman* ASPIRIN 81 MG TABLET,DELAYED * Take 81 mg by mouth once wilman* METOPROLOL TARTRATE 50 MG TAB* Take 50 mg by mouth twice wyatt* LISINOPRIL 10 MG TABLET Take 10 mg by mouth once wilman* MOMETASONE 220 MCG (60 DOSES)* Inhale 1 Puff as instructed. CHOLECALCIFEROL (VITAMIN D3) * Take 1 tablet by mouth once d* SIMVASTATIN 40 MG TABLET Take 20 mg by mouth daily at * NITROGLYCERIN 0.3 MG SUBLINGU* Dissolve 0.3 mg under the ton* ALBUTEROL SULFATE HFA 90 MCG/* Inhale 2 Puffs as instructed * EPINEPHRINE 0.15 MG/0.15 ML I* by INJECTION(UNSPECIFIED PARE* LORATADINE 10 MG TABLET Take 10 mg by mouth as needed. OMEPRAZOLE 40 MG CAPSULE,MELODY* Take 1 capsule by mouth once * PREDNISONE 10 MG TABLET Take 1 tablet twice the day b* LIDOCAINE-PRILOCAINE 2.5 %-2.* Apply 1 application to affect* KETOCONAZOLE 2 % TOPICAL CREAM Apply 1 application to affect* PROMETHAZINE 25 MG TABLET Take 0.5-1 tablets by mouth e* FUROSEMIDE 20 MG TABLET Take 2 tablets by mouth twice* FERREX 150 MG IRON CAPSULE Take 1 capsule by mouth once * CLOTRIMAZOLE-BETAMETHASONE 1 * Apply 1 application to affect* HYDROCORTISONE VALERATE 0.2 %* Apply 1 application to affect* TRIAMCINOLONE ACETONIDE 0.025* Apply 1 application to affect* Problem List As Of Date 02/04/2018 Noted Resolved Malignant neoplasm of ascending colon (HCC) [C1*INVALID FOR* Abnormal mammogram of left breast [R92.8] INVALID FOR* 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] INVALID FOR* Abnormal magnetic resonance imaging of liver [R*INVALID FOR* Liver metastasis (HCC) [C78.7] INVALID FOR* Diabetes (HCC) [E11.9] INVALID FOR* Hearing loss [H91.90] INVALID FOR* Hypertension [I10] INVALID FOR* Hyperlipidemia [E78.5] INVALID FOR* Carotid artery disease (HCC) [I77.9] INVALID FOR* Coronary artery disease [I25.10] INVALID FOR* Asthma [J45.909] INVALID FOR* Sleep apnea [G47.30] INVALID FOR* Arthritis [M19.90] INVALID FOR* Fibromyalgia [M79.7] INVALID FOR* Atrial arrhythmia [I49.8] INVALID FOR* H/O degenerative disc disease [Z87.39] INVALID FOR* Spondylolysis [M43.00] INVALID FOR* Radiculopathy [M54.10] INVALID FOR* Eczema [L30.9] INVALID FOR* Anemia [D64.9] INVALID FOR* 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*INVALID FOR* Colon cancer (HCC) [C18.9] Hypotension due to drugs [I95.2] INVALID FOR* Orthostasis [I95.1] INVALID FOR* Nausea [R11.0] INVALID FOR* Visit Notes: >> Elisa Weber LPN SunFeb 04, 2018 9:32 AM Status: Signed Est. Pt, discuss recent lab results, tx tomorrow Elisa Weber LPN Encounter Status:Closed by SUJIT VASQUEZ DO on 02/04/18 PROGRESS Observed: 01/26/2018 Status: COMPLETED Source: [place] 6:02 PM [facility] REPOSITORY O ID: [id number] Author: Lc Elmore Service: (none) Author Type: Physician Type: Progress Notes Filed: 01/26/2018 6:04 PM Note Text: OPERATIVE NOTATION FOR [facility] SURGICAL PROCEDURE. January 16, 2018 Quyen Coker 1940 [id number] female PROCEDURE: left preoperative ultrasound guided needle placement -15845 EXCISIONAL BREAST BIOPSY - [id number] SURGEON: Jessie Elmore M.D. FACS INSEAM LEVELER: None DEPT: WQ PROVIDER: [id number] Elmore MD POS: [id number] DIAGNOSIS: (N64.52) Nipple discharge (primary encounter diagnosis) ASA CLASS: 3 - Severe FINDINGS: COMPLICATIONS: None PMHx - PAST MEDICAL HISTORY Diagnosis Date - Anemia - Arthritis - Asthma - Atrial arrhythmia - Atrial fibrillation (HCC) - Carotid artery disease (HCC) - Colon cancer (HCC) - Coronary artery disease - Diabetes (HCC) - Eczema - Fibromyalgia - H/O degenerative disc disease - Hearing loss - Hyperlipidemia - Hypertension - Myocardial infarction (HCC) - Radiculopathy - Sleep apnea - Spondylolysis COMORBIDITIES - None, Cancer Metastasis, Current Cancer Therapy, CAD, HTN, Hx Cardiac Surgery and PR Post Op Occurrences - None Wound Classification - Clean Operative note dictated in the [facility] dictation system. 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 She returns here for follow-up of her breast related issues. 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 Her complicated history is as follows: The patient is a 74 year old female with a complaint of rectal bleeding and anemia. The patient initially underwent upper endoscopy which demonstrated no obvious source. The patient underwent colonoscopy by Dr. Chuck Penn on July 13 which demonstrated a fungating mass at the cecum ascending colon junction. Pathology returned as invasive adenocarcinoma. The patient is being seen by me today at the request of Dr. Penn for my opinion and advice regarding right colon cancer. The patient has a history of coronary disease and carotid stenosis. She has been on Plavix which was on hold after her endoscopy and prior to her surgical procedure. Additionally, she had undergone previous left carotid endarterectomy. Patient was recently evaluated by her metal patternmaker, Dr. Sujit Maya. She had undergone coronary bypass grafting in 2011 and is status post an LAD and left circumflex stent placement in November 2013. 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 She has good left ventricular ejection fraction. It was felt she was an acceptable risk for surgical intervention and did not require further preoperative cardiac diagnostic studies. I performed a laparoscopic right hemicolectomy on July 28, 2015. The pathology demonstrated: The tumor's size was 3.0x2.6.1.0 cm. Macroscopic tumor perforation was not identified. Histologic type: adenocarcinoma Histologic Grade: Low grade Histologic features for microsatellite instability - Intratumoral lymphocytic response: Mild to moderate Peritumoral lymphocytic response: Crohn's like lymphoid response: None Tumor subtype and differentiation: Not applicable MIcroscopic tumor extension: tumor invades through muscularis propria into subserosal adipose Lymphovascular invasion: None Perineural invasion: None Surgical margins were free of disease. Lymph nodes examined: 14 Lymph nodes involved: 0 PATHOLOGIC STAGE: pT 3, pN 0, M 0 Quyen noted loose stools had been continuing for the past few days at her August 15 follow-up. She has been maintaining a low residue diet. She also notes very transient dizziness. Post operative pain has been well controlled. The patient notes nausea. The patient`s appetite has been average. She was admitted to the hospital on August 22 with further looser stools and dizziness and some dehydration. Stool cultures were obtained which demonstrated no abnormalities. She was started on probiotics and Imodium and this significantly improved her stool frequency. She notes that at this point in time, her stools remain somewhat green but are less loose than they were. Overall she states her appetite still remains fair. She also notes that she is having issues of persistent nausea. She noted that this seemed similar to this as she had had in the past and was evaluated by Dr. Penn with upper endoscopy which was apparently unremarkable. The patient has been on a 20 mg Prilosec dose for some time. She notes that her nausea symptoms improve if she takes Maalox. The patient still is complaining of episodic transient dizziness that is worse if she raises up more quickly. Additionally, the patient underwent a recent follow-up mammogram. This was read as demonstrating a 8 mm mass with microcalcifications in her left breast. It was recommended biopsy listed BI-RADS Category 4. The patient did not have ultrasound performed. She irregularly performs a self breast exam and notes overall lumpy breasts but denies any specific changes. She denies skin changes, nipple discharge, or other difficulties. She had a previous mammogram that did demonstrate some microcalcifications similar mass. I obtained a CT scan of the abdomen and pelvis. This demonstrated no intra-abdominal abnormalities and demonstrated the anastomosis to have no signs of leakage inflammation or abscess which I felt could've been concerning for her abdominal complaints. There was noted to be in an area of asymmetric contrast enhancement in the liver which seemed to go away in delayed films. There were a list of possible options for this and MRI was recommended as an option. The patient had a previous CT scan preop which demonstrated similar findings from my standpoint and intraoperatively had no abnormalities noted in this location at the liver surface. I felt it was not necessary to have an MRI. Dr. Vasquez evaluated the patient and was concerned of those findings and recommended an MRI be obtained. The patient has since seen her primary care physician. Her oral hypoglycemic medication was stopped which has both cured her dizziness symptoms and her epigastric/nausea symptoms. We also obtained ultrasound which demonstrates no specific abnormalities in her left breast I performed a left side stereotactic biopsy for her abnormal mammogram on September 15, 2014. The pathology returned as DCIS. The patient notes some resolution of the bruising since the procedure but now notes a mass that worries her at the biopsy site. 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 Nuclear Grade - 2 (intermediate). Necrosis - present, single cell necrosis. Calcifications - present. Additional findings - focal fibrocystic changes. Negative for invasive carcinoma in the submitted specimen. I plan to obtain an MRI to assess her breast for additional or more extended pathology. MRI of the breast returned as: IMPRESSION: KNOWN BIOPSY PROVEN MALIGNANCY Longitudinally oriented area of mild enhancement in the central left breast thought to be due to postbiopsy hemorrhage/inflammation. Tumor along this entire length is thought less likely but cannot be excluded. Brandee condon/giovanny:10/12/2015 12:43:57 Cash Room Clerk: [facility] letter sent: Category 6 MRI BI-RADS: 6 Known biopsy proven malignancy Aerologist: [facility] Transcribe Date/Time: Oct 12 2015 12:43P Dictated by : BRANDEE AYALA MD This examination was interpreted and the report reviewed and electronically signed by: BRANDEE AYALA MD On Oct 12 2015 12:43PM Results-Findings * * *Final Report* * * DATE OF EXAM: Oct 11 2015 9:45AM [facility] [id number] - MRI BREAST YAN WWO / PROCEDURE REASON: DCIS (D05.10), ABNORMAL MAMMOGRAM OF LEFT BREAST (R92.8) * * * * Physician Interpretation * * * * #[id number] - MRI BREAST YAN O BREAST MRI OF BOTH BREASTS : 10/11/2015 HISTORY: Dcis (D05.10), Abnormal Mammogram Of Left Breast (R92.8). RESULT: No prior exams were available for comparison. Interpretation of this MRI was correlated with available mammograms. Gadolinium contrast calibrated to patient weight was injected. Axial T1, T2, pre and post contrast T1, and coronal images were obtained with a dedicated breast coil. The breasts are mostly fatty bilaterally. No mass, architectural distortion or abnormal enhancement is seen in the right breast. In the mid central right breast, centered just above the nipple is a longitudinal area of mild increased progressive enhancement. This is in the vicinity of recent biopsy. There is susceptibility artifact. However, the length of abnormal enhancement is much greater than the targeted lesion measuring approximately 4 cm in craniocaudal dimension. Maximal AP dimension is approximately 1.7 cm and maximal transverse dimension 1.3 cm. This abnormal enhancement could be biopsy related, perhaps representing postbiopsy hemorrhage/inflammation. No other areas of abnormal enhancement or architectural distortion are seen. There are no abnormalities seen in the axillary nodes region or infraclavicular nodes. The patient's abdominal MRI returned as: IMPRESSION: Large left hepatic lobe lesion, neoplastic in appearance and likely metastatic from the patient's known colonic CA. Partial SMV thrombus. COMMUNICATION: Communicated with: SUJIT Hernandez 10/13/2015 12:20 PM. Aerologist: [facility] Transcribe Date/Time: Oct 13 2015 12:26P Dictated by : BRANDEE AYALA MD This examination was interpreted and the report reviewed and electronically signed by: BRANDEE AYALA MD On Oct 13 2015 12:26PM Results-Findings * * *Final Report* * * DATE OF EXAM: Oct 13 2015 9:35AM [facility] [id number] - MRI ABDOMEN O CONTRAST / PROCEDURE REASON: abnormal ct of lever r93.2 malignant neoplasm of ascending colon c18.2 dcia lef * * * * Physician Interpretation * * * * RESULT: MRI of the abdomen without and with intravenous contrast HISTORY: abnormal ct of lever r93.2 malignant neoplasm of ascending colon c18.2 dcis left TECHNIQUE: Using the torso phased array coil, axial STIR, T1 weighted in- and [id number] and coronal HASTE images were obtained. Flow sensitive imaging through the portal vein was performed, as well. Then, using a 3-D GRE T1 weighted sequence, dynamic images were obtained before, during and after the administration of 19ml cc intravenous Dotarem. Comparison: None FINDINGS: Liver: There is a large, heterogeneously enhancing mass within the entire lateral segment of the left hepatic lobe and extending into the medial segment as well. This mass measures approximately 8.2 x 5.8 x 6.3 cm. This is most consistent with neoplasm, perhaps metastatic given the patient's history of colonic carcinoma. No additional hepatic lesions are seen. There is patchy hepatic fatty change throughout the right hepatic lobe. Biliary tract: The common bile duct is normal in course and caliber. No filling defect is identified within the common duct. Gallbladder: Absent Pancreatic duct: The visualized portions of the pancreatic duct are normal. Spleen: No lesion is identified. Pancreas: The pancreas enhances normally and is without focal lesions. Adrenal glands: No mass is identified Kidneys: The visualized portions of the kidneys are normal. No adenopathy is identified. There is partial, nonocclusive thrombus within the superior mesenteric vein just cephalad to its 1st branch. She had undergone liver resection with a left hepatectomy for metastatic colon cancer at April 27, 2016. She was doing well post her liver resection and then we proceeded with her surgical resection for her DCIS. I performed a left needle localization lumpectomy/partial mastectomy on July 05, 2016. The pathology demonstrated: MICROSCOPIC DIAGNOSIS Left breast mass, lumpectomy with needle localization: Focal ductal carcinoma in situ. Changes consistent with previous biopsy site. See cancer summary below. SJ:carmen 07/07/16 DUCTAL CARCINOMA IN SITU SUMMARY: Specimen - partial breast Procedure - excision with wire-guided localization Lymph node sampling ? no lymph nodes present Specimen integrity - single intact specimen Specimen size ? 15 x 9 x 4 cm Specimen laterality ? left Tumor site ? not specified Size (extent) of DCIS ? 0.3 cm in greatest dimension. See comment. 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 Architectural pattern - cribriform Nuclear grade - grade 2 (intermediate) Necrosis ? not identified Margins ? margin uninvolved by ductal carcinoma in situ. The tumor is 2 cm away from the closest anterior and posterior margins Treatment effect - no known presurgical therapy. Lymph nodes ? not submitted Distant metastasis ? not replicable Additional Pathologic Findings ? fibrocystic changes. - Focal changes consistent with previous biopsy site. Ancillary Studies from previous specimen ([id number] / [id number]): ER ? positive (65%, strong) FL ? positive (54%, strong) Her2 sophie (IHC) ? equivocal (2+) Her2 by FISH - not performed. Microcalcifications ? present in non-neoplastic tissue. Clinical history - Please make reference to previous specimen ([id number]) left breast, stereotactic core biopsy with diagnosis of ductal carcinoma in situ. Pathologic Staging: pTis(DCIS) pNx Mx The above summary is in compliance with [employer] (CAP) Cancer Protocols Checklist and [employer] Joint Committee on Cancer (AJCC), Staging Manual, 7th Ed. COMMENT A minute focus of ductal carcinoma in situ is noted adjacent to the previous biopsy site. The ductal carcinoma in situ is measured on the glass slide. The ductal carcinoma in situ in the previous breast biopsy ([id number]) measures 0.4 x 0.2 cm in greatest dimension and present in 2 out of 4 blocks. Case has been reviewed in consultation with Dr. Segovia who concurs with the above diagnosis. IDC:SARAH Napier notes the site is well healing. Post operative pain has been well controlled. The patient denies nausea. The patient`s appetite has been good. Given the size of her DCIS she was not felt to need radiation following her procedure. She is doing a self breast exam and notes no palpable abnormalities. She recently underwent follow-up mammogram on February 13, 2017. This demonstrated: IMPRESSION: PROBABLY BENIGN The grouped calcifications in the left breast are probably benign. A follow-up mammogram in 6 months is recommended to demonstrate stability. Alvarez oro/giovanny:02/13/2017 12:06:29 Cash Room Clerk: Aubrie CAZARES(R)(M), [facility] letter sent: # Mo FU Mammogram BI-RADS: 3 Probably benign Aerologist: Giovanny Transcribe Date/Time: Feb 13 2017 11:10A Dictated by: ALVAREZ CORONADO MD This examination was interpreted and the report reviewed and electronically signed by: ALVAREZ CORONADO MD on Feb 13 2017 12:06PM ?EST The patient follow up study was found to have recurrence of her tumor at the edge of the previous resection in the liver and was felt to be a lung metastases. She is currently undergoing salvage/palliative chemotherapy. Overall she is doing well with these treatments. She had 6 month follow-up mammogram and ultrasound. This demonstrated: IMPRESSION: SUSPICIOUS FINDING - BIOPSY SHOULD BE CONSIDERED - FOLLOW-UP RECOMMENDED The 7 mm dilated duct in the left breast resembles a solid mass or a papilloma and is suspicious of malignancy. ?An ultrasound guided biopsy is recommended. Juancarlos andersen/giovanny:10/17/2017 15:09:57 Cash Room Clerk: Aubrie VALDEZ)(Luis Miguel), [facility] letter sent: Abnormal ? Mammogram BI-RADS: 4 Suspicious finding - Biopsy should be considered Ultrasound BI-RADS: 4 Suspicious finding - Biopsy should be considered Aerologist: Giovanny Transcribe Date/Time: Oct 17 2017 ?1:56P Dictated by : JUANCARLOS SNOW MD This examination was interpreted and the report reviewed and electronically signed by: JUANCARLOS SNOW MD on Oct 17 2017 ?3:09PM ?EST Results-Findings * * *Final Report* * * DATE OF EXAM: Oct 17 2017 ?2:54PM ? [facility] ? 0593 ?- ?[facility] [employer] BREAST LTD LT ?/ PROCEDURE REASON: 6 month bilateral / left breast / abnormal mammogram ?? ? * * * * Physician Interpretation * * * * ?#[id number] - [facility] DIAGNOSTIC YAN BILATERAL DIGITAL DIAGNOSTIC MAMMOGRAM WITH CAD: 10/17/2017 HISTORY: 6 Month Bilateral / Left Breast / Abnormal Mammogram. RESULT: TECHNIQUE: ?The study was acquired using full field digital technology and interpreted from soft copy. Current study was also evaluated with a Computer Aided Detection (CAD). Comparison is made to exams dated: ?02/13/2017 mammogram, 09/04/2016 mammogram - [facility], 09/06/2015 mammogram, and 09/03/2015 mammogram. There are scattered fibroglandular elements in both breasts. The left breast has post-operative findings. There are grouped pleomorphic calcifications in the left breast at 9 o'clock anterior depth. No other significant masses, calcifications, or other findings are seen in either breast. SUSPICIOUS FINDING - BIOPSY SHOULD BE CONSIDERED The grouped pleomorphic calcifications in the left breast are suspicious of malignancy. ?A stereotactic biopsy is recommended. There is no abnormality seen in the left breast to correspond with the discharge from the nipple, however, clinical correlation is recommended. #[id number] - [facility] BREAST LTD LT ULTRASOUND OF LEFT BREAST: 10/17/2017 RESULT: Comparison is made to exams dated: ?02/13/2017 mammogram, 09/04/2016 mammogram - [facility], 09/06/2015 mammogram, and 09/03/2015 mammogram. Real-time ultrasound of the left breast was performed. There is a 7 mm dilated duct in the left breast central to the nipple in the retroareolar region. ?This dilated duct displays internal echoes. She is currently recently receiving salvage chemotherapy for her metastatic colon cancer. She seems to be relatively stable on this course of treatment. The patient and her after considerable discussion would like to have biopsies of these areas. We plan to perform the biopsy at the midpoint of her chemotherapy therapy treatments I performed a left side Stereotactic guided core biopsy for her abnormal mammogram on November 20, 2017. The pathology returned as: Fibrocystic changes, focal intraductal hyperplasia without atypia. Hyalinized nodular with clustered microcalcifications, no evidence of malignancy She returned on for excisional breast biopsy at the site of her dilated duct found on ultrasound. She underwent ultrasound-guided wire placement. Excisional breast biopsy on January 16, 2018. Pathology returned as normal breast tissue with a focal dilated duct VITALS: There were no vitals taken for this visit. On examination, the left side breast biopsy site is clean, dry, and intact. There is slight bruising of the site. Assessment IMPRESSION: status post Stereotactic guided core biopsy and left excisional biopsy for left side breast benign findings. PLAN: If Quyen notes any problems, she should contact me immediately. I reminded her about the importance of self - breast exam. I recommend she perform monthly self breast exams. If any palpable abnormalities, change in breast exam, or any difficulties are noted, she is to contact my office immediately. Diagnoses: (N64.52) Nipple discharge (primary encounter diagnosis) Return to Clinic: The patient is instructed to follow- up with me in 1 month to assure there is no further nipple discharge. Lc Elmore MD CNOV Observed: 01/22/2018 Status: COMPLETED Source: [place] 3:00 PM [facility] REPOSITORY Office Visit (GENSWS) QUYEN COKER ([id number]) 1940 [facility] Date Time Provider Department 01/22/18 3:00 PM LC ELMORE During your visit today, we recorded the following information about you: Lc Elmore MD 01/23/2018 7:26 PM Signed FOLLOW UP VISIT - POST LEFT STEREOTACTIC GUIDED CORE BIOPSY AND POST LEFT EXCISIONAL BREST BIOPSY NAME: Quyen Coker CLINIC NO.: [id number] DATE OF SERVICE: January 23, 2018 : 1940 REFERRING PHYSICIAN: Alvarez Mccoy MD Quyen is a patient I am following for left medial breast microcalcifications, 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 She returns here for follow-up of her breast related issues. 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 Her complicated history is as follows: The patient is a 74 year old female with a complaint of rectal bleeding and anemia. The patient initially underwent upper endoscopy which demonstrated no obvious source. The patient underwent colonoscopy by Dr. Chuck Penn on July 13 which demonstrated a fungating mass at the cecum ascending colon junction. Pathology returned as invasive adenocarcinoma. The patient is being seen by me today at the request of Dr. Penn for my opinion and advice regarding right colon cancer. The patient has a history of coronary disease and carotid stenosis. She has been on Plavix which was on hold after her endoscopy and prior to her surgical procedure. Additionally, she had undergone previous left carotid endarterectomy. Patient was recently evaluated by her metal patternmaker, Dr. Sujit Maya. She had undergone coronary bypass grafting in 2011 and is status post an LAD and left circumflex stent placement in November 2013. 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 She has good left ventricular ejection fraction. It was felt she was an acceptable risk for surgical intervention and did not require further preoperative cardiac diagnostic studies. I performed a laparoscopic right hemicolectomy on July 28, 2015. The pathology demonstrated: The tumor's size was 3.0x2.6.1.0 cm. Macroscopic tumor perforation was not identified. Histologic type: adenocarcinoma Histologic Grade: Low grade Histologic features for microsatellite instability - Intratumoral lymphocytic response: Mild to moderate Peritumoral lymphocytic response: Crohn's like lymphoid response: None Tumor subtype and differentiation: Not applicable MIcroscopic tumor extension: tumor invades through muscularis propria into subserosal adipose Lymphovascular invasion: None Perineural invasion: None Surgical margins were free of disease. Lymph nodes examined: 14 Lymph nodes involved: 0 PATHOLOGIC STAGE: pT 3, pN 0, M 0 Quyen noted loose stools had been continuing for the past few days at her August 15 follow-up. She has been maintaining a low residue diet. She also notes very transient dizziness. Post operative pain has been well controlled. The patient notes nausea. The patient`s appetite has been average. She was admitted to the hospital on August 22 with further looser stools and dizziness and some dehydration. Stool cultures were obtained which demonstrated no abnormalities. She was started on probiotics and Imodium and this significantly improved her stool frequency. She notes that at this point in time, her stools remain somewhat green but are less loose than they were. Overall she states her appetite still remains fair. She also notes that she is having issues of persistent nausea. She noted that this seemed similar to this as she had had in the past and was evaluated by Dr. Penn with upper endoscopy which was apparently unremarkable. The patient has been on a 20 mg Prilosec dose for some time. She notes that her nausea symptoms improve if she takes Maalox. The patient still is complaining of episodic transient dizziness that is worse if she raises up more quickly. Additionally, the patient underwent a recent follow-up mammogram. This was read as demonstrating a 8 mm mass with microcalcifications in her left breast. It was recommended biopsy listed BI-RADS Category 4. The patient did not have ultrasound performed. She irregularly performs a self breast exam and notes overall lumpy breasts but denies any specific changes. She denies skin changes, nipple discharge, or other difficulties. She had a previous mammogram that did demonstrate some microcalcifications similar mass. I obtained a CT scan of the abdomen and pelvis. This demonstrated no intra-abdominal abnormalities and demonstrated the anastomosis to have no signs of leakage inflammation or abscess which I felt could've been concerning for her abdominal complaints. There was noted to be in an area of asymmetric contrast enhancement in the liver which seemed to go away in delayed films. There were a list of possible options for this and MRI was recommended as an option. The patient had a previous CT scan preop which demonstrated similar findings from my standpoint and intraoperatively had no abnormalities noted in this location at the liver surface. I felt it was not necessary to have an MRI. Dr. Vasquez evaluated the patient and was concerned of those findings and recommended an MRI be obtained. The patient has since seen her primary care physician. Her oral hypoglycemic medication was stopped which has both cured her dizziness symptoms and her epigastric/nausea symptoms. We also obtained ultrasound which demonstrates no specific abnormalities in her left breast I performed a left side stereotactic biopsy for her abnormal mammogram on September 15, 2014. The pathology returned as DCIS. The patient notes some resolution of the bruising since the procedure but now notes a mass that worries her at the biopsy site. 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 Nuclear Grade - 2 (intermediate). Necrosis - present, single cell necrosis. Calcifications - present. Additional findings - focal fibrocystic changes. Negative for invasive carcinoma in the submitted specimen. I plan to obtain an MRI to assess her breast for additional or more extended pathology. MRI of the breast returned as: IMPRESSION: KNOWN BIOPSY PROVEN MALIGNANCY Longitudinally oriented area of mild enhancement in the central left breast thought to be due to postbiopsy hemorrhage/inflammation. Tumor along this entire length is thought less likely but cannot be excluded. Brandee condon/giovanny:10/12/2015 12:43:57 Cash Room Clerk: [facility] letter sent: Category 6 MRI BI-RADS: 6 Known biopsy proven malignancy Aerologist: PSC Transcribe Date/Time: Oct 12 2015 12:43P Dictated by : BRANDEE AYALA MD This examination was interpreted and the report reviewed and electronically signed by: BRANDEE AYALA MD On Oct 12 2015 12:43PM Results-Findings * * *Final Report* * * DATE OF EXAM: Oct 11 2015 9:45AM [facility] [id number] - MRI BREAST YAN WWO / PROCEDURE REASON: DCIS (D05.10), ABNORMAL MAMMOGRAM OF LEFT BREAST (R92.8) * * * * Physician Interpretation * * * * #[id number] - MRI BREAST YAN [facility] BREAST MRI OF BOTH BREASTS : 10/11/2015 HISTORY: Dcis (D05.10), Abnormal Mammogram Of Left Breast (R92.8). RESULT: No prior exams were available for comparison. Interpretation of this MRI was correlated with available mammograms. Gadolinium contrast calibrated to patient weight was injected. Axial T1, T2, pre and post contrast T1, and coronal images were obtained with a dedicated breast coil. The breasts are mostly fatty bilaterally. No mass, architectural distortion or abnormal enhancement is seen in the right breast. In the mid central right breast, centered just above the nipple is a longitudinal area of mild increased progressive enhancement. This is in the vicinity of recent biopsy. There is susceptibility artifact. However, the length of abnormal enhancement is much greater than the targeted lesion measuring approximately 4 cm in craniocaudal dimension. Maximal AP dimension is approximately 1.7 cm and maximal transverse dimension 1.3 cm. This abnormal enhancement could be biopsy related, perhaps representing postbiopsy hemorrhage/inflammation. No other areas of abnormal enhancement or architectural distortion are seen. There are no abnormalities seen in the axillary nodes region or infraclavicular nodes. The patient's abdominal MRI returned as: IMPRESSION: Large left hepatic lobe lesion, neoplastic in appearance and likely metastatic from the patient's known colonic CA. Partial SMV thrombus. COMMUNICATION: Communicated with: SUJIT Hernandez 10/13/2015 12:20 PM. Aerologist: [facility] Transcribe Date/Time: Oct 13 2015 12:26P Dictated by : BRANDEE AYALA MD This examination was interpreted and the report reviewed and electronically signed by: BRANDEE AYALA MD On Oct 13 2015 12:26PM Results-Findings * * *Final Report* * * DATE OF EXAM: Oct 13 2015 9:35AM [facility] [id number] - MRI ABDOMEN [facility] CONTRAST / PROCEDURE REASON: abnormal ct of lever r93.2 malignant neoplasm of ascending colon c18.2 dcia lef * * * * Physician Interpretation * * * * RESULT: MRI of the abdomen without and with intravenous contrast HISTORY: abnormal ct of lever r93.2 malignant neoplasm of ascending colon c18.2 dcis left TECHNIQUE: Using the torso phased array coil, axial STIR, T1 weighted in- and [id number] and coronal HASTE images were obtained. Flow sensitive imaging through the portal vein was performed, as well. Then, using a 3-D GRE T1 weighted sequence, dynamic images were obtained before, during and after the administration of 19ml cc intravenous Dotarem. Comparison: None FINDINGS: Liver: There is a large, heterogeneously enhancing mass within the entire lateral segment of the left hepatic lobe and extending into the medial segment as well. This mass measures approximately 8.2 x 5.8 x 6.3 cm. This is most consistent with neoplasm, perhaps metastatic given the patient's history of colonic carcinoma. No additional hepatic lesions are seen. There is patchy hepatic fatty change throughout the right hepatic lobe. Biliary tract: The common bile duct is normal in course and caliber. No filling defect is identified within the common duct. Gallbladder: Absent Pancreatic duct: The visualized portions of the pancreatic duct are normal. Spleen: No lesion is identified. Pancreas: The pancreas enhances normally and is without focal lesions. Adrenal glands: No mass is identified Kidneys: The visualized portions of the kidneys are normal. No adenopathy is identified. There is partial, nonocclusive thrombus within the superior mesenteric vein just cephalad to its 1st branch. She had undergone liver resection with a left hepatectomy for metastatic colon cancer at April 27, 2016. She was doing well post her liver resection and then we proceeded with her surgical resection for her DCIS. I performed a left needle localization lumpectomy/partial mastectomy on July 05, 2016. The pathology demonstrated: MICROSCOPIC DIAGNOSIS Left breast mass, lumpectomy with needle localization: Focal ductal carcinoma in situ. Changes consistent with previous biopsy site. See cancer summary below. SJ:carmen 07/07/16 DUCTAL CARCINOMA IN SITU SUMMARY: Specimen - partial breast Procedure - excision with wire-guided localization Lymph node sampling ? no lymph nodes present Specimen integrity - single intact specimen Specimen size ? 15 x 9 x 4 cm Specimen laterality ? left Tumor site ? not specified Size (extent) of DCIS ? 0.3 cm in greatest dimension. See comment. 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 Architectural pattern - cribriform Nuclear grade - grade 2 (intermediate) Necrosis ? not identified Margins ? margin uninvolved by ductal carcinoma in situ. The tumor is 2 cm away from the closest anterior and posterior margins Treatment effect - no known presurgical therapy. Lymph nodes ? not submitted Distant metastasis ? not replicable Additional Pathologic Findings ? fibrocystic changes. - Focal changes consistent with previous biopsy site. Ancillary Studies from previous specimen ([id number] / [id number]): ER ? positive (65%, strong) FL ? positive (54%, strong) Her2 sophie (IHC) ? equivocal (2+) Her2 by FISH - not performed. Microcalcifications ? present in non-neoplastic tissue. Clinical history - Please make reference to previous specimen ([id number]) left breast, stereotactic core biopsy with diagnosis of ductal carcinoma in situ. Pathologic Staging: pTis(DCIS) pNx Mx The above summary is in compliance with [employer] (CAP) Cancer Protocols Checklist and [employer] Joint Committee on Cancer (AJCC), Staging Manual, 7th Ed. COMMENT A minute focus of ductal carcinoma in situ is noted adjacent to the previous biopsy site. The ductal carcinoma in situ is measured on the glass slide. The ductal carcinoma in situ in the previous breast biopsy ([id number]) measures 0.4 x 0.2 cm in greatest dimension and present in 2 out of 4 blocks. Case has been reviewed in consultation with Dr. Segovia who concurs with the above diagnosis. IDC:SARAH Napier notes the site is well healing. Post operative pain has been well controlled. The patient denies nausea. The patient`s appetite has been good. Given the size of her DCIS she was not felt to need radiation following her procedure. She is doing a self breast exam and notes no palpable abnormalities. She recently underwent follow-up mammogram on February 13, 2017. This demonstrated: IMPRESSION: PROBABLY BENIGN The grouped calcifications in the left breast are probably benign. A follow-up mammogram in 6 months is recommended to demonstrate stability. Alvarez oro/giovanny:02/13/2017 12:06:29 Cash Room Clerk: Aubrie CAZARES(Michael)(Luis Miguel), [facility] letter sent: # Mo FU Mammogram BI-RADS: 3 Probably benign Aerologist: Giovanny Transcribe Date/Time: Feb 13 2017 11:10A Dictated by: ALVAREZ CORONADO MD This examination was interpreted and the report reviewed and electronically signed by: ALVAREZ CORONADO MD on Feb 13 2017 12:06PM ?EST The patient follow up study was found to have recurrence of her tumor at the edge of the previous resection in the liver and was felt to be a lung metastases. She is currently undergoing salvage/palliative chemotherapy. Overall she is doing well with these treatments. She had 6 month follow-up mammogram and ultrasound. This demonstrated: IMPRESSION: SUSPICIOUS FINDING - BIOPSY SHOULD BE CONSIDERED - FOLLOW-UP RECOMMENDED The 7 mm dilated duct in the left breast resembles a solid mass or a papilloma and is suspicious of malignancy. ?An ultrasound guided biopsy is recommended. Juancarlos andersen/giovanny:10/17/2017 15:09:57 Cash Room Clerk: Aubrie Martinez RT(Michael)(Luis Miguel), [facility] letter sent: Abnormal ? Mammogram BI-RADS: 4 Suspicious finding - Biopsy should be considered Ultrasound BI-RADS: 4 Suspicious finding - Biopsy should be considered Aerologist: Giovanny Transcribe Date/Time: Oct 17 2017 ?1:56P Dictated by : JUANCARLOS SNOW MD This examination was interpreted and the report reviewed and electronically signed by: JUANCARLOS SNOW MD on Oct 17 2017 ?3:09PM ?EST Results-Findings * * *Final Report* * * DATE OF EXAM: Oct 17 2017 ?2:54PM ? [facility] ? 0593 ?- ?[facility] US BREAST LTD LT ?/ PROCEDURE REASON: 6 month bilateral / left breast / abnormal mammogram ?? ? * * * * Physician Interpretation * * * * ?#[id number] - [facility] [facility] BILATERAL DIGITAL DIAGNOSTIC MAMMOGRAM WITH CAD: 10/17/2017 HISTORY: 6 Month Bilateral / Left Breast / Abnormal Mammogram. RESULT: TECHNIQUE: ?The study was acquired using full field digital technology and interpreted from soft copy. Current study was also evaluated with a Computer Aided Detection (CAD). Comparison is made to exams dated: ?02/13/2017 mammogram, 09/04/2016 mammogram - [facility], 09/06/2015 mammogram, and 09/03/2015 mammogram. There are scattered fibroglandular elements in both breasts. The left breast has post-operative findings. There are grouped pleomorphic calcifications in the left breast at 9 o'clock anterior depth. No other significant masses, calcifications, or other findings are seen in either breast. SUSPICIOUS FINDING - BIOPSY SHOULD BE CONSIDERED The grouped pleomorphic calcifications in the left breast are suspicious of malignancy. ?A stereotactic biopsy is recommended. There is no abnormality seen in the left breast to correspond with the discharge from the nipple, however, clinical correlation is recommended. #[id number] - [facility] BREAST [facility] ULTRASOUND OF LEFT BREAST: 10/17/2017 RESULT: Comparison is made to exams dated: ?02/13/2017 mammogram, 09/04/2016 mammogram - [facility], 09/06/2015 mammogram, and 09/03/2015 mammogram. Real-time ultrasound of the left breast was performed. There is a 7 mm dilated duct in the left breast central to the nipple in the retroareolar region. ?This dilated duct displays internal echoes. She is currently recently receiving salvage chemotherapy for her metastatic colon cancer. She seems to be relatively stable on this course of treatment. The patient and her after considerable discussion would like to have biopsies of these areas. We plan to perform the biopsy at the midpoint of her chemotherapy therapy treatments I performed a left side Stereotactic guided core biopsy for her abnormal mammogram on November 20, 2017. The pathology returned as: Fibrocystic changes, focal intraductal hyperplasia without atypia. Hyalinized nodular with clustered microcalcifications, no evidence of malignancy She returned on for excisional breast biopsy at the site of her dilated duct found on ultrasound. She underwent ultrasound-guided wire placement. Excisional breast biopsy on January 16, 2018. Pathology returned as normal breast tissue with a focal dilated duct VITALS: There were no vitals taken for this visit. On examination, the left side breast biopsy site is clean, dry, and intact. There is slight bruising of the site. Assessment IMPRESSION: status post Stereotactic guided core biopsy and left excisional biopsy for left side breast benign findings. PLAN: If Quyen notes any problems, she should contact me immediately. I reminded her about the importance of self - breast exam. I recommend she perform monthly self breast exams. If any palpable abnormalities, change in breast exam, or any difficulties are noted, she is to contact my office immediately. Diagnoses: (N64.52) Nipple discharge (primary encounter diagnosis) Return to Clinic: The patient is instructed to follow- up with me in 1 month to assure there is no further nipple discharge. Lc Elmore MD Referring Provider: SELF [[id number]] Allergies As of Date: 01/22/2018 Noted Allergy Reaction CORGARD (NADOLOL) 07/21/2015 12 - Shortness of Breath PENN 07/21/2015 12 - Shortness of Breath MORPHINE 07/21/2015 12 - Shortness of Breath Comments: Pt says she can tolerate oxycodone. PENICILLINS 07/21/2015 12 - Shortness of Breath PERFUMES 12/07/2017 12 - Shortness of Breath PRAVACHOL (PRAVASTATIN) 07/21/2015 12 - Shortness of Breath SULFITE 07/21/2015 12 - Shortness of Breath Comments: Sulfites in food. Verified by refrigerator tester. ZOCOR (SIMVASTATIN) 07/21/2015 12 - Shortness of Breath Comments: Pt reports allergy to brand Zocor, tolerates generic. Date Reviewed: 01/22/2018 Reviewed by: Lalo Chavez UX MANAGER - Fully Assessed Reason for Visit: Post Op [174] Cmt: post op stereotactic Breast Bx Primary Visit Diagnosis:Nipple discharge [N64.52] Prescriptions as of 01/22/2018 Sig: HYOSCYAMINE 0.125 MG DISINTEG* Dissolve 2 tablets under the * ONDANSETRON HCL 8 MG TABLET Take 1 tablet by mouth every * NIGGDIARUDJMJGU-PVSOKOS-MJAKI* Take 10 mL by mouth every 4 h* PREDNISONE 10 MG TABLET Take 1 tablet twice the day b* POTASSIUM CHLORIDE 20 MEQ ORA* Take 20 mEq by mouth once wyatt* RIVAROXABAN 15 MG TABLET Take 1 tablet by mouth daily * Patient taking differently: Take by mouth daily with dinn* LIDOCAINE-PRILOCAINE 2.5 %-2.* Apply 1 application to affect* SODIUM CHLORIDE 0.9% FLUSH Access implanted vascular acc* HEPARIN, PORCINE (PF) 100 UNI* Access implanted vascular acc* KETOCONAZOLE 2 % TOPICAL CREAM Apply 1 application to affect* LOPERAMIDE 2 MG TABLET Take 2 mg by mouth as needed. PROMETHAZINE 25 MG TABLET Take 0.5-1 tablets by mouth e* SODIUM CHLORIDE 0.9% FLUSH Access implanted vascular acc* HEPARIN LOCK FLUSH (PORCINE) * Access implanted vascular acc* FUROSEMIDE 20 MG TABLET Take 2 tablets by mouth twice* MONTELUKAST 10 MG TABLET Take 1 tablet by mouth daily * FERREX 150 MG IRON CAPSULE Take 1 capsule by mouth once * MAGNESIUM OXIDE 400 MG TABLET Take 400 mg by mouth twice da* CLOTRIMAZOLE-BETAMETHASONE 1 * Apply 1 application to affect* ACETAMINOPHEN 500 MG TABLET Take 1,000 mg by mouth as nee* DIPHENHYDRAMINE 25 MG TABLET Take 50 mg by mouth as needed. HYDROCORTISONE VALERATE 0.2 %* Apply 1 application to affect* ISOSORBIDE MONONITRATE ER 60 * Take 60 mg by mouth once wilman* ASPIRIN 81 MG TABLET,DELAYED * Take 81 mg by mouth once wilman* METOPROLOL TARTRATE 50 MG TAB* Take 50 mg by mouth twice wyatt* LISINOPRIL 10 MG TABLET Take 10 mg by mouth once wilman* OMEPRAZOLE 20 MG CAPSULE,MELODY* Take 20 mg by mouth once wilman* MOMETASONE 220 MCG (60 DOSES)* Inhale 1 Puff as instructed. CHOLECALCIFEROL (VITAMIN D3) * Take 1 tablet by mouth once d* SIMVASTATIN 40 MG TABLET Take 20 mg by mouth daily at * NITROGLYCERIN 0.3 MG SUBLINGU* Dissolve 0.3 mg under the ton* ALBUTEROL SULFATE HFA 90 MCG/* Inhale 2 Puffs as instructed * EPINEPHRINE 0.15 MG/0.15 ML I* by INJECTION(UNSPECIFIED PARE* LORATADINE 10 MG TABLET Take 10 mg by mouth as needed. TRIAMCINOLONE ACETONIDE 0.025* Apply 1 application to affect* Problem List As Of Date 01/22/2018 Noted Resolved Malignant neoplasm of ascending colon (HCC) [C1*INVALID FOR* Abnormal mammogram of left breast [R92.8] INVALID FOR* 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] INVALID FOR* Abnormal magnetic resonance imaging of liver [R*INVALID FOR* Liver metastasis (HCC) [C78.7] INVALID FOR* Diabetes (HCC) [E11.9] INVALID FOR* Hearing loss [H91.90] INVALID FOR* Hypertension [I10] INVALID FOR* Hyperlipidemia [E78.5] INVALID FOR* Carotid artery disease (HCC) [I77.9] INVALID FOR* Coronary artery disease [I25.10] INVALID FOR* Asthma [J45.909] INVALID FOR* Sleep apnea [G47.30] INVALID FOR* Arthritis [M19.90] INVALID FOR* Fibromyalgia [M79.7] INVALID FOR* Atrial arrhythmia [I49.8] INVALID FOR* H/O degenerative disc disease [Z87.39] INVALID FOR* Spondylolysis [M43.00] INVALID FOR* Radiculopathy [M54.10] INVALID FOR* Eczema [L30.9] INVALID FOR* Anemia [D64.9] INVALID FOR* 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*INVALID FOR* Colon cancer (HCC) [C18.9] Hypotension due to drugs [I95.2] INVALID FOR* Orthostasis [I95.1] INVALID FOR* Nausea [R11.0] INVALID FOR* Letter Text Encounter Status:Closed by LC ELMORE MD on 01/23/18 PROGRESS Observed: 01/22/2018 Status: COMPLETED Source: [place] 9:49 AM [facility] REPOSITORY O ID: [id number] Author: Sujit Vasquez Service: (none) Author Type: Physician Type: Progress Notes Filed: 01/22/2018 10:10 AM Note Text: Diagnosis: 1) Metastatic colon cancer. KRAS - No variant detected [Reference sequence: ([id number])]. NRAS - No variant detected [Reference sequence: ([id number])]. BRAF - No variant detected [Reference sequence: ([id number])]. 2) DCIS. 3) IMV thrombus. 4) DVT. HPI: The patient is a 77 yo female with a PMH significant for hyperlipidemia, HTN, CAD (PR, CABG x2 2011; stent x1 2013), PVD (carotid artery stenosis s/p CEA left side 2012), sleep apnea (uses CPAP), arthritis (chronic lower back and from lower thoracic area to the neck pain). She developed rectal bleeding in March and underwent evaluation with EGD. Evidently that study was normal. Next underwent colonoscopy and was observed to have a tumor in the cecum. Had normal colonoscopy about 2 years prior. Underwent right hemicolectomy 07/28/2015. 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 Through muscularis propria into subserosal adipose tissue, but not extending to the serosal surface. All margins negative. No lymphovascular invasion. No perineural invasion. No tumor deposits. None of 14 nodes positive. No evidence MSI by IHC. Had screening mammogram 08/2015. Abnormality left breast. Dx mammo and US 09/06/2015. 6.5 x 7.9 mm nodular density with focal calcifications in fthe slightly upper lateral portion of the left breast. Underwent stereotactic core biopsy 09/15/2015. DCIS, cribriform and solid, grade 2, single cell necrosis; no invasive carcinoma. MRI of the breast 10/11/2015: Longitudinally oriented area of mild enhancement in the central left breast thought to be due to postbiopsy hemorrhage/inflammation. Tumor along this entire length is thought less likely but cannot be excluded. MRI of the abdomen and pelvis 10/13/2015: Liver: There is a large, heterogeneously enhancing mass within the entire lateral segment of the left hepatic lobe and extending into the medial segment as well. This mass measures approximately 8.2 x 5.8 x 6.3 cm. This is most consistent with neoplasm, perhaps metastatic given the patient's history of colonic carcinoma. No additional hepatic lesions are seen. There is patchy hepatic fatty change throughout the right hepatic lobe. Partial, nonocclusive thrombus within the superior mesenteric vein just cephalad to its 1st branch. Liver biopsy--consistent with colorectal primary. Patient received the fourth cycle chemotherapy on 12/22/2015. She developed profuse diarrhea and presented to the emergency department for dehydration and shortness of breath. She was found to be an RVR atrial fibrillation with significant hypomagnesemia. She was admitted and started on IV hydration and magnesium replacement as well as medical management of atrial fibrillation. The diarrhea however continued for several more days during which she was given supportive care. Following that she developed an episode of ileus which extend her hospital stay. She was eventually discharged to rehabilitation. This morning she underwent an ultrasound of both lower extremities. She was found to have an acute DVT in the right common femoral vein. Treated with apixaban. Underwent left-sided lumpectomy for DCIS. Specimen - partial breast Procedure - excision with wire-guided localization Lymph node sampling ? no lymph nodes present Specimen integrity - single intact specimen Specimen size ? 15 x 9 x 4 cm Specimen laterality ? left Tumor site ? not specified Size (extent) of DCIS ? 0.3 cm in greatest dimension. See comment. 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 Architectural pattern - cribriform Nuclear grade - grade 2 (intermediate) Necrosis ? not identified Margins ? margin uninvolved by ductal carcinoma in situ. The tumor is 2 cm away from the closest anterior and posterior margins Treatment effect - no known presurgical therapy. Lymph nodes ? not submitted Distant metastasis ? not replicable Additional Pathologic Findings ? fibrocystic changes. - Focal changes consistent with previous biopsy site. Previous therapy: 1) FOLFOX x1; FOLFOX with Vectibix x3. 2) Underwent left hepatectomy 04/28/2016. Final pathology reviewed. Positive margin was cauterized during surgery. 3) Xeloda after liver directed therapy. Started cycle #3 11/27/2016 through 02/2017. 4) Infusional 5-fluorouracil with oxaliplatin on diagnosis lung metastasis. Current therapy: 1) FOLFIRI. Presents for ongoing oncologic management--evaluation for cycle #5. Interim history: Saw toe former and received injection ?lidocaine and had hives for about 4-5 days. No other medication use or changes. She's feeling better having had an extra 2 week break from chemotherapy. No episodes of orthostasis, facial pressure/headache. PMH, medications and allergies as below personally reviewed by me today. Any changes documented in appropriate section. ROS: Constitutional: Denies episodes of fever and night sweats. Neuro: See above.. HEENT: No recent change in voice, vision or hearing (significant b/l hearing loss--underwent audiogram early December 2017. Study showed a 50% decline in her hearing. Presumably this is from oxaliplatin.). Resp: See above. CVS: Denies exertional chest pain, PND, orthopnea. GI: See above. : No dysuria or gross hematuria. Stress incontinence--stable. Endo: Denies hot flashes. Denies polyuria and polydipsia. Denies heat and cold intolerance. Musculoskeletal: Denies bone, back, joint and muscular pain. Derm: Denies rash. Denies diffuse pruritis. Heme: No unusual bleeding and/or unexplained bruising. Psych: Normal mood. PHYSICAL EXAM: Vitals: Blood pressure 114/63, pulse (!) 51, temperature 36.9 ?C (98.4 ?F), weight 98.7 kg (217 lb 8 oz). Well-appearing and in no acute distress. EYES: Sclerae are anicteric bilaterally. NECK: Supple. No enlargement of thyroid. LYMPHATIC: There is no palpable cervical, supraclavicular adenopathy. RESPIRATORY: Inspiratory breath sounds are clear with no rhonchi or wheeze. CARDIOVASCULAR: Rhythm is irregular. ABDOMEN: The abdomen is nondistended and non-tender. Extremities: Free of edema. SKIN: No jaundice or rash. No petechiae. NEUROLOGIC: foil cutter II-XII are grossly intact. No focal motor weakness. ASSESSMENT/PLAN: (C18.2) Malignant neoplasm of ascending colon (HCC) (primary encounter diagnosis) (C78.7) Liver metastasis (HCC) Assessment: -Patient had completed several months of capecitabine following resection for an isolated metastasis. She tolerated capecitabine only marginally and was on lower doses for the last couple cycles. She had marked difficulty with diarrhea, dehydration and several hospitalizations/ER visits for toxicity. However, lung nodule had been stable. 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 -First cycle was complicated by port line rupture. 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 Also now documented 50% decline in hearing presumably from oxaliplatin also. -She tolerates FOLFIRI fairly well but has had acute side effects including dizziness and pressure in both sides of her head as well as general feeling of being unwell. The symptoms are typically relieved with hydration. Plan: -Okay to resume treatment tomorrow. -Plan hydration on day 1 and day 3. -CT prior to cycle #8. 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 Plan: -Continue Xarelto. Sujit Vasquez DO COMP METABOLIC PANEL Collected: 01/22/2018 Status: F Source: [place] 9:49 AM [facility] REPOSITORY TYPE CODE TESTS RESULT OUT OF REFERENCE UNITS RANGE LAB TP 6.3-8.0 g/dL Protein, Total 6.6 LAB ALB 3.9-4.9 g/dL Low Albumin 3.8 LAB CA 8.5-10.2 mg/dL Calcium, Total 9.1 LAB TBIL 0.2-1.3 mg/dL Bilirubin, Total 0.4 LAB ALKP 32-117 U/L Alkaline High Phosphatase 178 LAB AST 13-35 U/L AST 34 LAB GLU 74-99 mg/dL Glucose High 172 Result Comment: The [place] Diabetes Association (ADA) provides guidance for cutoff values for fasting glucose and random glucose. The ADA defines fasting as no caloric intake for at least 8 hours. Fas ting plasma glucose results between 100 to 125 mg/dL indicate increased risk for diabetes (prediabetes). Fasting plasma glucose results greater than or equal to 126 mg/dL meet the criteria for diagnosis of diabetes. In the absence of unequivocal hyperglycemia, results should be confirmed by repeat testing. In a patient with classic symptoms of hyperglycemia or hyperglycemic crisis, random plasma glucose results greater than or equal to 200 mg/dL meet the criteria for diagnosis of diabetes. Reference: Standards of Medical Care in Diabetes 2016, British Diabetes Association. Diabetes Care. 2016.39(Suppl 1). LAB BUN 7-21 mg/dL BUN 20 LAB CRET 0.58-0.96 mg/dL Creatinine High 1.06 LAB NA 136-144 mmol/L Sodium 140 LAB K 3.7-5.1 mmol/L Potassium 4.0 LAB CL 97-105 mmol/L Chloride 98 LAB CO2 22-30 mmol/L CO2 27 LAB AGAP 9-18 mmol/L Anion Gap 15 LAB ALT 7-38 U/L ALT 30 LAB GFRAA eGFR- Amer. >60 LAB GFRNAA . eGFR-All Other Races 51 Result Comment: eGFR (Estimated GFR) Units of measure: mL/min/1.73 meters squared eGFR is derived from the reexpressed MDRD Study equation using the following parameters: serum creatinine, age, gender and race. The creatinine assay has been calibrated to be traceable to IDMS. An eGFR <60 mL/min/1.73m2 for >3 months is consistent with chronic kidney disease. Refer to KDOQI guidelines for clinical interpretation. In patients with unstable renal function, e.g. those with acute kidney injury, the eGFR may not accurately reflect actual GFR. Performed By: #### CMP, CEA #### [facility] [address] [place], [place] [address] CEA Collected: 01/22/2018 Status: F Source: [place] 9:49 AM [facility] REPOSITORY TYPE CODE TESTS RESULT OUT OF RANGE REFERENCE UNITS LAB CEA 0.0-2.9 ng/mL High CEA 4.4 Result Comment: Test analyzed by the Nicholas DxI method. Performed By: #### CMP, CEA #### [facility] [address] [place], [place] [address] KELLEN ABS GR + CBC Collected: 01/22/2018 Status: F Source: [place] 9:47 AM [facility] REPOSITORY TYPE CODE TESTS RESULT OUT OF REFERENCE UNITS RANGE LAB WWBC 3.70-11.00 k/uL Kellen WBC 6.42 LAB WRBC 3.90-5.20 m/uL Low [place] RBC 3.16 LAB WHGB 11.5-15.5 g/dL Low [place] Hemoglobin 10.8 LAB WHCT 36.0-46.0 % Low [place] Hematocrit 32.8 LAB WMCV 80.0-100.0 fL [place] High MCV 103.8 LAB WMCH 26.0-34.0 pg Kellen High MCH 34.2 LAB WMCHC 30.5-36.0 g/dL Kellen MCHC 32.9 LAB WRDW 11.5-15.0 % [place] RDW 14.6 LAB WPLT 150-400 k/uL [place] Platelet Cnt 186 LAB WMPV 9.0-12.7 fL Kellen MPV 10.0 Result Comment: Test performed at: [facility], [address] [place] [address]., [place] [address]. LAB ABGRAN 1.45-7.50 k/uL Absol Gran 4.13 Count CNOVSP Observed: 01/22/2018 Status: COMPLETED Source: [place] 9:30 AM [facility] REPOSITORY Visit (SP) Office (HEMAWS) JULIETTEQUYEN MONTIEL ([id number]) 1940 F CHT Date Time Provider Department 01/22/18 9:30 AM SUJIT VASQUEZ During your visit today, we recorded the following information about you: Temperature Pulse Blood pressure Weight 98.4 degrees 51/minute 114/63 98.7 kg Elisa WeberJUAN, JUAN 01/22/2018 9:54 AM Signed Est pt, discuss recent lab results, tx tomorrow Elisa Weber, UX MANAGERDawson Vasquez, DO 01/22/2018 10:10 AM Signed Diagnosis: 1) Metastatic colon cancer. KRAS - No variant detected [Reference sequence: (NM_004985.4)]. NRAS - No variant detected [Reference sequence: (NM_[id number])]. BRAF - No variant detected [Reference sequence: (NM_[id number])]. 2) DCIS. 3) IMV thrombus. 4) DVT. HPI: The patient is a 77 yo female with a PMH significant for hyperlipidemia, HTN, CAD (PR, CABG x2 2011; stent x1 2013), PVD (carotid artery stenosis s/p CEA left side 2012), sleep apnea (uses CPAP), arthritis (chronic lower back and from lower thoracic area to the neck pain). She developed rectal bleeding in March and underwent evaluation with EGD. Evidently that study was normal. Next underwent colonoscopy and was observed to have a tumor in the cecum. Had normal colonoscopy about 2 years prior. Underwent right hemicolectomy 07/28/2015. 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 Through muscularis propria into subserosal adipose tissue, but not extending to the serosal surface. All margins negative. No lymphovascular invasion. No perineural invasion. No tumor deposits. None of 14 nodes positive. No evidence MSI by IHC. Had screening mammogram 08/2015. Abnormality left breast. Dx mammo and US 09/06/2015. 6.5 x 7.9 mm nodular density with focal calcifications in fthe slightly upper lateral portion of the left breast. Underwent stereotactic core biopsy 09/15/2015. DCIS, cribriform and solid, grade 2, single cell necrosis; no invasive carcinoma. MRI of the breast 10/11/2015: Longitudinally oriented area of mild enhancement in the central left breast thought to be due to postbiopsy hemorrhage/inflammation. Tumor along this entire length is thought less likely but cannot be excluded. MRI of the abdomen and pelvis 10/13/2015: Liver: There is a large, heterogeneously enhancing mass within the entire lateral segment of the left hepatic lobe and extending into the medial segment as well. This mass measures approximately 8.2 x 5.8 x 6.3 cm. This is most consistent with neoplasm, perhaps metastatic given the patient's history of colonic carcinoma. No additional hepatic lesions are seen. There is patchy hepatic fatty change throughout the right hepatic lobe. Partial, nonocclusive thrombus within the superior mesenteric vein just cephalad to its 1st branch. Liver biopsy--consistent with colorectal primary. Patient received the fourth cycle chemotherapy on 12/22/2015. She developed profuse diarrhea and presented to the emergency department for dehydration and shortness of breath. She was found to be an RVR atrial fibrillation with significant hypomagnesemia. She was admitted and started on IV hydration and magnesium replacement as well as medical management of atrial fibrillation. The diarrhea however continued for several more days during which she was given supportive care. Following that she developed an episode of ileus which extend her hospital stay. She was eventually discharged to rehabilitation. This morning she underwent an ultrasound of both lower extremities. She was found to have an acute DVT in the right common femoral vein. Treated with apixaban. Underwent left-sided lumpectomy for DCIS. Specimen - partial breast Procedure - excision with wire-guided localization Lymph node sampling ? no lymph nodes present Specimen integrity - single intact specimen Specimen size ? 15 x 9 x 4 cm Specimen laterality ? left Tumor site ? not specified Size (extent) of DCIS ? 0.3 cm in greatest dimension. See comment. 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 Architectural pattern - cribriform Nuclear grade - grade 2 (intermediate) Necrosis ? not identified Margins ? margin uninvolved by ductal carcinoma in situ. The tumor is 2 cm away from the closest anterior and posterior margins Treatment effect - no known presurgical therapy. Lymph nodes ? not submitted Distant metastasis ? not replicable Additional Pathologic Findings ? fibrocystic changes. - Focal changes consistent with previous biopsy site. Previous therapy: 1) FOLFOX x1; FOLFOX with Vectibix x3. 2) Underwent left hepatectomy 04/28/2016. Final pathology reviewed. Positive margin was cauterized during surgery. 3) Xeloda after liver directed therapy. Started cycle #3 11/27/2016 through 02/2017. 4) Infusional 5-fluorouracil with oxaliplatin on diagnosis lung metastasis. Current therapy: 1) FOLFIRI. Presents for ongoing oncologic management--evaluation for cycle #5. Interim history: Saw toe former and received injection ?lidocaine and had hives for about 4-5 days. No other medication use or changes. She's feeling better having had an extra 2 week break from chemotherapy. No episodes of orthostasis, facial pressure/headache. PMH, medications and allergies as below personally reviewed by me today. Any changes documented in appropriate section. ROS: Constitutional: Denies episodes of fever and night sweats. Neuro: See above.. HEENT: No recent change in voice, vision or hearing (significant b/l hearing loss--underwent audiogram early December 2017. Study showed a 50% decline in her hearing. Presumably this is from oxaliplatin.). Resp: See above. CVS: Denies exertional chest pain, PND, orthopnea. GI: See above. : No dysuria or gross hematuria. Stress incontinence--stable. Endo: Denies hot flashes. Denies polyuria and polydipsia. Denies heat and cold intolerance. Musculoskeletal: Denies bone, back, joint and muscular pain. Derm: Denies rash. Denies diffuse pruritis. Heme: No unusual bleeding and/or unexplained bruising. Psych: Normal mood. PHYSICAL EXAM: Vitals: Blood pressure 114/63, pulse (!) 51, temperature 36.9 ?C (98.4 ?F), weight 98.7 kg (217 lb 8 oz). Well-appearing and in no acute distress. EYES: Sclerae are anicteric bilaterally. NECK: Supple. No enlargement of thyroid. LYMPHATIC: There is no palpable cervical, supraclavicular adenopathy. RESPIRATORY: Inspiratory breath sounds are clear with no rhonchi or wheeze. CARDIOVASCULAR: Rhythm is irregular. ABDOMEN: The abdomen is nondistended and non-tender. Extremities: Free of edema. SKIN: No jaundice or rash. No petechiae. NEUROLOGIC: foil cutter II-XII are grossly intact. No focal motor weakness. ASSESSMENT/PLAN: (C18.2) Malignant neoplasm of ascending colon (HCC) (primary encounter diagnosis) (C78.7) Liver metastasis (HCC) Assessment: -Patient had completed several months of capecitabine following resection for an isolated metastasis. She tolerated capecitabine only marginally and was on lower doses for the last couple cycles. She had marked difficulty with diarrhea, dehydration and several hospitalizations/ER visits for toxicity. However, lung nodule had been stable. 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 -First cycle was complicated by port line rupture. 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 Also now documented 50% decline in hearing presumably from oxaliplatin also. -She tolerates FOLFIRI fairly well but has had acute side effects including dizziness and pressure in both sides of her head as well as general feeling of being unwell. The symptoms are typically relieved with hydration. Plan: -Okay to resume treatment tomorrow. -Plan hydration on day 1 and day 3. -CT prior to cycle #8. 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 Plan: -Continue Xarelto. Sujit Vasquez DO Referring Provider: SUJIT VASQUEZ [[id number]] Allergies As of Date: 01/22/2018 Noted Allergy Reaction CORGARD (NADOLOL) 07/21/2015 12 - Shortness of Breath PENN 07/21/2015 12 - Shortness of Breath MORPHINE 07/21/2015 12 - Shortness of Breath Comments: Pt says she can tolerate oxycodone. PENICILLINS 07/21/2015 12 - Shortness of Breath PERFUMES 12/07/2017 12 - Shortness of Breath PRAVACHOL (PRAVASTATIN) 07/21/2015 12 - Shortness of Breath SULFITE 07/21/2015 12 - Shortness of Breath Comments: Sulfites in food. Verified by refrigerator tester. ZOCOR (SIMVASTATIN) 07/21/2015 12 - Shortness of Breath Comments: Pt reports allergy to brand Zocor, tolerates generic. Date Reviewed: 01/22/2018 Reviewed by: Elisa Krishnamurthy (Rail Doweling Machine Operator) JUAN Weber - Fully Assessed Reason for Visit: Established Patient [175] Primary Visit Diagnosis:Malignant neoplasm of ascending colon (HCC) [C18.2] Other Visit Diagnoses:Liver metastasis (HCC) [C78.7] Hypotension due to drugs [I95.2] Orthostasis [I95.1] Nausea [R11.0] Order(s):hyoscyamine sulfate 0.125 mg ODTDissolve 2 tablets under the tongue prior to chemotherapy.Disp: 30 tabletRfl: 2 Follow-up and Disposition History Recorded Prescriptions as of 01/22/2018 Sig: ONDANSETRON HCL 8 MG TABLET Take 1 tablet by mouth every * [id number]-ACIAP* Take 10 mL by mouth every 4 h* POTASSIUM CHLORIDE 20 MEQ ORA* Take 20 mEq by mouth once wyatt* RIVAROXABAN 15 MG TABLET Take 1 tablet by mouth daily * Patient taking differently: Take by mouth daily with dinn* LIDOCAINE-PRILOCAINE 2.5 %-2.* Apply 1 application to affect* SODIUM CHLORIDE 0.9% FLUSH Access implanted vascular acc* HEPARIN, PORCINE (PF) 100 UNI* Access implanted vascular acc* LOPERAMIDE 2 MG TABLET Take 2 mg by mouth as needed. SODIUM CHLORIDE 0.9% FLUSH Access implanted vascular acc* HEPARIN LOCK FLUSH (PORCINE) * Access implanted vascular acc* FUROSEMIDE 20 MG TABLET Take 2 tablets by mouth twice* MONTELUKAST 10 MG TABLET Take 1 tablet by mouth daily * MAGNESIUM OXIDE 400 MG TABLET Take 400 mg by mouth twice da* ACETAMINOPHEN 500 MG TABLET Take 1,000 mg by mouth as nee* DIPHENHYDRAMINE 25 MG TABLET Take 50 mg by mouth as needed. ASPIRIN 81 MG TABLET,DELAYED * Take 81 mg by mouth once wilman* METOPROLOL TARTRATE 50 MG TAB* Take 50 mg by mouth twice wyatt* LISINOPRIL 10 MG TABLET Take 10 mg by mouth once wilman* OMEPRAZOLE 20 MG CAPSULE,MELODY* Take 20 mg by mouth once wilman* MOMETASONE 220 MCG (60 DOSES)* Inhale 1 Puff as instructed. CHOLECALCIFEROL (VITAMIN D3) * Take 1 tablet by mouth once d* SIMVASTATIN 40 MG TABLET Take 20 mg by mouth daily at * NITROGLYCERIN 0.3 MG SUBLINGU* Dissolve 0.3 mg under the ton* ALBUTEROL SULFATE HFA 90 MCG/* Inhale 2 Puffs as instructed * EPINEPHRINE 0.15 MG/0.15 ML I* by INJECTION(UNSPECIFIED PARE* LORATADINE 10 MG TABLET Take 10 mg by mouth as needed. HYOSCYAMINE 0.125 MG DISINTEG* Dissolve 2 tablets under the * PREDNISONE 10 MG TABLET Take 1 tablet twice the day b* KETOCONAZOLE 2 % TOPICAL CREAM Apply 1 application to affect* PROMETHAZINE 25 MG TABLET Take 0.5-1 tablets by mouth e* FERREX 150 MG IRON CAPSULE Take 1 capsule by mouth once * CLOTRIMAZOLE-BETAMETHASONE 1 * Apply 1 application to affect* HYDROCORTISONE VALERATE 0.2 %* Apply 1 application to affect* ISOSORBIDE MONONITRATE ER 60 * Take 60 mg by mouth once wilman* TRIAMCINOLONE ACETONIDE 0.025* Apply 1 application to affect* Problem List As Of Date 01/22/2018 Noted Resolved Malignant neoplasm of ascending colon (HCC) [C1*INVALID FOR* Abnormal mammogram of left breast [R92.8] INVALID FOR* 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] INVALID FOR* Abnormal magnetic resonance imaging of liver [R*INVALID FOR* Liver metastasis (HCC) [C78.7] INVALID FOR* Diabetes (HCC) [E11.9] INVALID FOR* Hearing loss [H91.90] INVALID FOR* Hypertension [I10] INVALID FOR* Hyperlipidemia [E78.5] INVALID FOR* Carotid artery disease (HCC) [I77.9] INVALID FOR* Coronary artery disease [I25.10] INVALID FOR* Asthma [J45.909] INVALID FOR* Sleep apnea [G47.30] INVALID FOR* Arthritis [M19.90] INVALID FOR* Fibromyalgia [M79.7] INVALID FOR* Atrial arrhythmia [I49.8] INVALID FOR* H/O degenerative disc disease [Z87.39] INVALID FOR* Spondylolysis [M43.00] INVALID FOR* Radiculopathy [M54.10] INVALID FOR* Eczema [L30.9] INVALID FOR* Anemia [D64.9] INVALID FOR* 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*INVALID FOR* Colon cancer (HCC) [C18.9] Hypotension due to drugs [I95.2] INVALID FOR* Orthostasis [I95.1] INVALID FOR* Nausea [R11.0] INVALID FOR* Visit Notes: >> Elisa Mccabe) JUAN Weber January 22, 2018 9:48 AM Status: Signed Est pt, discuss recent lab results, tx tomorrow Elisa Pritchettchristina Weber LPN Encounter Status:Closed by SUJIT VASQUEZ DO on 01/22/18 OPERATIVE REPORT Observed: 01/16/2018 Status: F Source: KELLEN 5:13 PM [facility] REPOSITORY [facility] Medical Records Department [address] [place] [address] Operative Report 01/16/18 1034 MR#: [id number] Acct: [id number] Name: QUYEN COKER Rep #: [id number] : 1940 77 From: Lc Elmore MD PCP: Alvarez Mccoy MD Status: DEP [facility] Y Location: [facility] Report of Operation Date of Procedure: 01/16/18 Pre-Operative Diagnosis: LEFT NIPPLE DISCHARGE, ? INTRADUCTAL PAPILLOMA Post-Operative Diagnosis: LEFT NIPPLE DISCHARGE, ? INTRADUCTAL PAPILLOMA - SUCCESSFUL BIOPSY Surgery/Procedure Performed:: LEFT ULTRASOUND GUIDED NEEDLE LOCALIZATION EXCISIONAL BREAST BIOPSY gold stamper: Demetris Doan Type of Anesthesia:: General Anesthesiologist: Patrick Mcneil Specimen's removed: left breast Estimated Blood Loss (mL): minimal Fluids Replaced: 400 Description of Procedure: The patient was then brought to the operative suite. Sign was performed verifying patient, site, position, SCIP antibiotic prophylaxis-clindamycin 600 mg due to penicillin allergy was given and DVT prophylaxis with SCDs. Following LMA anesthesia, ultrasound was then used to evaluate the abnormality in the medial aspect of the left breast just at the margin of the nipple areolar complex, slightly inferior and medial. The 4 mm abnormality was identified and a Kopan's wire was placed under ultrasound guidance just deep to the abnormality.and the limits of the mass and planned resection were marked on the skin using ultrasound guidance. the proper breast-left breast are marked in the holding area prior to the patient being brought back. A curvilinear incision was made at the nipple areolar complex and dissection carried down to subcutaneous breast tissue and then flared out such that a good margin would be obtained in all axes. When the specimen was removed, the wire came from the medial to lateral aspect. A solitary suture was placed at the superficial site just posterior to the skin of the nipple area complex. There were felt to be good resection margins.. The specimen was then brought to the pathology department for permanent evaluation. breast tissue just below the skin was reapproximated with interrupted 3-0 Vicryl sutures. Skin was closed with 5-0 Biosyn running subcuticular suture. Dermabond was applied to the skin the patient was awakened and brought to recovery in stable condition. 01/16/18 1713 <Electronically signed by Lc Elmore MD> Date Lc Elmore MD CC: Alvarez Mccoy MD; Lc Elmore MD Signed DISCHARGE INSTRUCTION Observed: 01/16/2018 Status: F Source: HIMROD 10:38 AM [facility] REPOSITORY [facility] Medical Records Department [address] [facility] [place] [address] Instructions for Home/Discharge Instructions 01/16/18 1037 MR#: [id number] Acct: [id number] Name: QUYEN COKER Rep #: [id number] : 1940 77 From: Lc Elmore MD PCP: Alvarez Mccoy MD Status: REG SDC Discharge Diet: No Restrictions Discharge Activity: Return to Normal Activity May shower in (days): 3 Remove Dressing in (days):: 3 - Leave Dermabond in place. Allergies/Adverse Reactions: Allergies penn Allergy (Verified 01/09/18 14:18) Shortness of breath nadolol [From Corgard] Allergy (Verified 01/09/18 14:18) Hives Penicillins Allergy (Verified 01/09/18 14:18) Hives pitavastatin [From Livalo] Allergy (Verified 01/09/18 14:18) myalgia pravastatin sodium [From Pravachol] Allergy (Verified 01/09/18 14:18) Hives sulfite Allergy (Verified 01/09/18 14:18) Hives atorvastatin calcium [From Lipitor] Adverse Reaction (Verified 01/09/18 14:18) Pain in joints morphine Adverse Reaction (Verified 01/09/18 14:18) chest pain CHEST PAINS AND SOB Medications to take at Discharge Aspirin 81 mg PO DAILY 01/03/17 Cholecalciferol (Vitamin D3) [Vitamin D3] 4,000 unit PO DAILY 01/03/17 Mometasone Furoate [Asmanex 220 mcg Twisthaler] 2 puff INHALATION DAILY 01/03/17 acetaminophen 500 mg tablet 1,000 mg PO PRN PRN tab 08/17/17 albuterol sulfate HFA 90 mcg/actuation aerosol inhaler 2 puff INHALATION Q4H PRN PRN 16 Days #18 08/17/17 diphenhydramine 25 mg capsule 50 mg PO PRN PRN 0 Days 08/17/17 epinephrine 0.3 mg/0.3 mL injection, auto-injector 0.3 ml SC PRN PRN 1 Days #2 ea 08/17/17 hydrocortisone 2.5 % topical cream 1 applic TOPICAL TID PRN PRN 10 Days #30 08/17/17 loratadine 10 mg tablet 10 mg PO DAILY PRN PRN 0 Days 08/17/17 montelukast 10 mg tablet 10 mg PO QDAY PRN tab 08/17/17 isosorbide mononitrate ER 60 mg tablet,extended release 24 hr 60 mg PO DAILY #90 tab 08/21/17 lisinopril 10 mg tablet 10 mg PO DAILY #90 tab 08/21/17 magnesium oxide 400 mg tablet 400 mg PO BID #180 tab 08/21/17 nitroglycerin 0.4 mg sublingual tablet 0.4 mg SUBLINGUAL Q5M PRN #25 tab 08/21/17 omeprazole 20 mg tablet,delayed release 20 mg PO DAILY #90 tab 09/25/17 Clotrimazole/Betamethasone Dip [Lotrisone Cream] 1 applic TP BID 10/01/17 Potassium Chloride [Klor-Con M20] 20 meq PO DAILY 10/01/17 rivaroxaban 15 mg tablet 20 mg PO QDAY tab 11/07/17 Furosemide [Lasix] 40 mg PO BID 12/13/17 Simvastatin [Zocor] 20 mg PO QHS 12/24/17 metoprolol tartrate 25 mg tablet 25 mg PO BID #180 tab 01/14/18 Primary Care Physician: Alvarez Mccoy MD [Primary Care Provider] - Please Follow Up With: Lc Elmore MD - [phone] When: Please call for an appointment to be seen in one week. 01/16/18 1038 <Electronically signed by Lc Elmore MD> Date Lc Elmore MD CC: Alvarez Mccoy MD BREAST MASTECTOMY Observed: 01/16/2018 Status: F Source: KELLEN (CHOOSE SIDE 12:00 AM [facility] REPOSITORY Patient: QUYEN COKER : 1940 (77/F) Acct Num: [id number] Phys: Catarina CARVAJAL,Lc Unit Num: [id number] Loc: [facility] Specimen: [id number] Received: 01/16/181535 Spec Type: BREAST TISSUES TISSUES: Left breast, NOS COMMENT Correlation with clinical, radiologic findings and appropriate follow up are necessary. Please make reference to previous specimen ([id number]) left breast, 9 o clock, stereotactic core biopsy with diagnosis of fibrocystic change and focal intraductal hyperplasia without atypia and hyalinized nodule with clustered microcalcifications and no evidence of malignancy and ([id number]) left breast, stereotactic core biopsy with diagnosis of ductal carcinoma in situ. GROSS DESCRIPTION Received in fixative is one container labeled with the patient's name and designated left breast. The specimen consists of a piece of theodore-yellow fibroadipose tissue measuring 3.5 x 2 x 1.5 cm. The specimen is oriented as follows: suture is superficial and wire is medial to lateral. The specimen is inked as follows: anterior yellow, posterior black, superior blue, inferior green, medial orange, lateral red. The specimen is serially sectioned and no obvious mass lesion is identified. The entire specimen is submitted in six cassettes. Cassette 1 contains the most medial portion of the specimen and cassette 6 contains the most lateral portion of the specimen. The specimen will be submitted after infusion cycle. / WINSTON:carmen 01/17/18 TC:5 CPT: 61016 HEADER OPERATION: Left intraoperative ultrasound-guided needle placement PRE-OP DIAGNOSIS: Left nipple discharge; questionable intraductal papilloma TISSUE SUBMITTED: Left breast biopsy tissue, wire is medial to lateral, suture is superficial FIXATION TIME: 48 hours MICROSCOPIC DESCRIPTION Slides are reviewed. MICROSCOPIC DIAGNOSIS Left breast, needle localization biopsy: Fatty breast tissue with focal ductal dilation. Negative for atypia or malignancy. WINSTON:carmen 01/22/18 Signed Norberto Hernandez 01/22/18 <signature on file> Performed By: #### PBREAST #### [facility] AYSE Velazquez, [address] CNOP Observed: 01/16/2018 Status: COMPLETED Source: [place] 12:00 AM [facility] REPOSITORY Operative Note (Enc) (GENSWS) Progress Notes: Lc Elmore MD 01/26/2018 6:04 PM Signed OPERATIVE NOTATION FOR [facility] SURGICAL PROCEDURE. January 16, 2018 Quyen Coker 1940 [id number] female PROCEDURE: left preoperative ultrasound guided needle placement -85061 EXCISIONAL BREAST BIOPSY - [id number] SURGEON: Jessie Elmore M.D. FACS INSEAM LEVELER: None DEPT: WQ PROVIDER: [id number] Elmore MD POS: [id number] DIAGNOSIS: (N64.52) Nipple discharge (primary encounter diagnosis) ASA CLASS: 3 - Severe FINDINGS: COMPLICATIONS: None PMHx - PAST MEDICAL HISTORY Diagnosis Date - Anemia - Arthritis - Asthma - Atrial arrhythmia - Atrial fibrillation (HCC) - Carotid artery disease (HCC) - Colon cancer (HCC) - Coronary artery disease - Diabetes (HCC) - Eczema - Fibromyalgia - H/O degenerative disc disease - Hearing loss - Hyperlipidemia - Hypertension - Myocardial infarction (HCC) - Radiculopathy - Sleep apnea - Spondylolysis COMORBIDITIES - None, Cancer Metastasis, Current Cancer Therapy, CAD, HTN, Hx Cardiac Surgery and PR Post Op Occurrences - None Wound Classification - Clean Operative note dictated in the [facility] dictation system. Lc Elmore MD Encounter Status:Closed by LC ELMORE MD on 01/26/18 PROGRESS Observed: 01/04/2018 Status: COMPLETED Source: [place] 9:54 AM [facility] REPOSITORY HNO ID: [id number] Author: Sujit Vasquez Service: (none) Author Type: Physician Type: Progress Notes Filed: 01/04/2018 10:16 AM Note Text: Diagnosis: 1) Metastatic colon cancer. KRAS - No variant detected [Reference sequence: (NM_004985.4)]. NRAS - No variant detected [Reference sequence: (NM_002524.4)]. BRAF - No variant detected [Reference sequence: (NM_004333.4)]. 2) DCIS. 3) IMV thrombus. 4) DVT. HPI: The patient is a 77 yo female with a PMH significant for hyperlipidemia, HTN, CAD (PR, CABG x2 2011; stent x1 2013), PVD (carotid artery stenosis s/p CEA left side 2012), sleep apnea (uses CPAP), arthritis (chronic lower back and from lower thoracic area to the neck pain). She developed rectal bleeding in March and underwent evaluation with EGD. Evidently that study was normal. Next underwent colonoscopy and was observed to have a tumor in the cecum. Had normal colonoscopy about 2 years prior. Underwent right hemicolectomy 07/28/2015. 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 Through muscularis propria into subserosal adipose tissue, but not extending to the serosal surface. All margins negative. No lymphovascular invasion. No perineural invasion. No tumor deposits. None of 14 nodes positive. No evidence MSI by IHC. Had screening mammogram 08/2015. Abnormality left breast. Dx mammo and US 09/06/2015. 6.5 x 7.9 mm nodular density with focal calcifications in fthe slightly upper lateral portion of the left breast. Underwent stereotactic core biopsy 09/15/2015. DCIS, cribriform and solid, grade 2, single cell necrosis; no invasive carcinoma. MRI of the breast 10/11/2015: Longitudinally oriented area of mild enhancement in the central left breast thought to be due to postbiopsy hemorrhage/inflammation. Tumor along this entire length is thought less likely but cannot be excluded. MRI of the abdomen and pelvis 10/13/2015: Liver: There is a large, heterogeneously enhancing mass within the entire lateral segment of the left hepatic lobe and extending into the medial segment as well. This mass measures approximately 8.2 x 5.8 x 6.3 cm. This is most consistent with neoplasm, perhaps metastatic given the patient's history of colonic carcinoma. No additional hepatic lesions are seen. There is patchy hepatic fatty change throughout the right hepatic lobe. Partial, nonocclusive thrombus within the superior mesenteric vein just cephalad to its 1st branch. Liver biopsy--consistent with colorectal primary. Patient received the fourth cycle chemotherapy on 12/22/2015. She developed profuse diarrhea and presented to the emergency department for dehydration and shortness of breath. She was found to be an RVR atrial fibrillation with significant hypomagnesemia. She was admitted and started on IV hydration and magnesium replacement as well as medical management of atrial fibrillation. The diarrhea however continued for several more days during which she was given supportive care. Following that she developed an episode of ileus which extend her hospital stay. She was eventually discharged to rehabilitation. This morning she underwent an ultrasound of both lower extremities. She was found to have an acute DVT in the right common femoral vein. Treated with apixaban. Underwent left-sided lumpectomy for DCIS. Specimen - partial breast Procedure - excision with wire-guided localization Lymph node sampling ? no lymph nodes present Specimen integrity - single intact specimen Specimen size ? 15 x 9 x 4 cm Specimen laterality ? left Tumor site ? not specified Size (extent) of DCIS ? 0.3 cm in greatest dimension. See comment. 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 Architectural pattern - cribriform Nuclear grade - grade 2 (intermediate) Necrosis ? not identified Margins ? margin uninvolved by ductal carcinoma in situ. The tumor is 2 cm away from the closest anterior and posterior margins Treatment effect - no known presurgical therapy. Lymph nodes ? not submitted Distant metastasis ? not replicable Additional Pathologic Findings ? fibrocystic changes. - Focal changes consistent with previous biopsy site. Previous therapy: 1) FOLFOX x1; FOLFOX with Vectibix x3. 2) Underwent left hepatectomy 04/28/2016. Final pathology reviewed. Positive margin was cauterized during surgery. 3) Xeloda after liver directed therapy. Started cycle #3 11/27/2016 through 02/2017. 4) Infusional 5-fluorouracil with oxaliplatin on diagnosis lung metastasis. Current therapy: 1) FOLFIRI. Presents for ongoing oncologic management--evaluation for cycle 2. Interim history: She presented to the ED the evening of day 1 last cycle for hydration. She felt well enough afterwards to go home. She said with this cycle the onset of the pressure in her head in the dizziness came on much faster than previous cycles. She also received prophylactic hydration on day 3. She continues to have abdominal bloating after eating and get some queasiness and abdominal discomfort in general. Symptom is still relieved with Zofran. She's not had any diarrhea and in fact says her stools have been more formed lately. She hasn't had any cardiac symptoms including shortness of breath at rest, palpitation or other symptoms to suggest atrial fibrillation. No unusual bleeding or unexplained bruising. PMH, medications and allergies as below personally reviewed by me today. Any changes documented in appropriate section. ROS: Constitutional: Denies episodes of fever and night sweats. Neuro: See above.. HEENT: No recent change in voice, vision or hearing (significant b/l hearing loss--underwent audiogram early December 2017. Study showed a 50% decline in her hearing. Presumably this is from oxaliplatin.). Resp: See above. CVS: Denies exertional chest pain, PND, orthopnea. GI: See above. : No dysuria or gross hematuria. Stress incontinence stable. Endo: Denies hot flashes. Denies polyuria and polydipsia. Denies heat and cold intolerance. Musculoskeletal: Denies bone, back, joint and muscular pain. Derm: Denies rash. Denies diffuse pruritis. Heme: No unusual bleeding and/or unexplained bruising. Psych: Normal mood. PHYSICAL EXAM: Vitals: Blood pressure 108/57, pulse 67, temperature 36.4 ?C (97.6 ?F), temperature source Temporal Artery, weight 97.5 kg (215 lb). Well-appearing and in no acute distress. EYES: Sclerae are anicteric bilaterally. NECK: Supple. No enlargement of thyroid. LYMPHATIC: There is no palpable cervical, supraclavicular adenopathy. RESPIRATORY: Inspiratory breath sounds are of better in all pedersen and remain clear with no rhonchi or wheeze currently. CARDIOVASCULAR: Rhythm is irregular. ABDOMEN: The abdomen is nondistended and non-tender. Extremities: Free of edema. SKIN: No jaundice or rash. No petechiae. NEUROLOGIC: foil cutter II-XII are grossly intact. No focal motor weakness. ASSESSMENT/PLAN: (C18.2) Malignant neoplasm of ascending colon (HCC) (primary encounter diagnosis) (C78.7) Liver metastasis (HCC) Assessment: -Patient had completed several months of capecitabine following resection for an isolated metastasis. She tolerated capecitabine only marginally and was on lower doses for the last couple cycles. She had marked difficulty with diarrhea, dehydration and several hospitalizations/ER visits for toxicity. However, lung nodule had been stable. 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 -First cycle was complicated by port line rupture. 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 Also now documented 50% decline in hearing presumably from oxaliplatin also. -She tolerates FOLFIRI fairly well but she does have acute side effects including dizziness and pressure in both sides of her head as well as general feeling of being unwell. The symptoms are typically relieved with hydration. Because of the noncurable nature of her disease and the significance and worsening of the symptoms with successive cycles of chemotherapy, I recommend a 2 week break from treatment. Plan: -Omit cycle on Sunday. -Plan hydration on day 1 and day 3. -CT prior to cycle #8. 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 Plan: -Continue Xarelto. Sujit Vasquez DO CNOVSP Observed: 01/04/2018 Status: COMPLETED Source: [place] 9:40 AM [facility] REPOSITORY Visit (SP) Office ([place]) QUYEN COKER ([id number]) 1940 F [facility] Date Time Provider Department 01/04/18 9:40 AM SUJIT VASQUEZ During your visit today, we recorded the following information about you: Temperature Pulse Blood pressure Weight 97.6 degrees 67/minute 108/57 97.5 kg Sujit Vasquez DO 01/04/2018 10:16 AM Signed Diagnosis: 1) Metastatic colon cancer. KRAS - No variant detected [Reference sequence: ([id number])]. NRAS - No variant detected [Reference sequence: ([id number])]. BRAF - No variant detected [Reference sequence: ([id number])]. 2) DCIS. 3) IMV thrombus. 4) DVT. HPI: The patient is a 77 yo female with a PMH significant for hyperlipidemia, HTN, CAD (PR, CABG x2 2011; stent x1 2013), PVD (carotid artery stenosis s/p CEA left side 2012), sleep apnea (uses CPAP), arthritis (chronic lower back and from lower thoracic area to the neck pain). She developed rectal bleeding in March and underwent evaluation with EGD. Evidently that study was normal. Next underwent colonoscopy and was observed to have a tumor in the cecum. Had normal colonoscopy about 2 years prior. Underwent right hemicolectomy 07/28/2015. 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 Through muscularis propria into subserosal adipose tissue, but not extending to the serosal surface. All margins negative. No lymphovascular invasion. No perineural invasion. No tumor deposits. None of 14 nodes positive. No evidence MSI by IHC. Had screening mammogram 08/2015. Abnormality left breast. Dx mammo and US 09/06/2015. 6.5 x 7.9 mm nodular density with focal calcifications in fthe slightly upper lateral portion of the left breast. Underwent stereotactic core biopsy 09/15/2015. DCIS, cribriform and solid, grade 2, single cell necrosis; no invasive carcinoma. MRI of the breast 10/11/2015: Longitudinally oriented area of mild enhancement in the central left breast thought to be due to postbiopsy hemorrhage/inflammation. Tumor along this entire length is thought less likely but cannot be excluded. MRI of the abdomen and pelvis 10/13/2015: Liver: There is a large, heterogeneously enhancing mass within the entire lateral segment of the left hepatic lobe and extending into the medial segment as well. This mass measures approximately 8.2 x 5.8 x 6.3 cm. This is most consistent with neoplasm, perhaps metastatic given the patient's history of colonic carcinoma. No additional hepatic lesions are seen. There is patchy hepatic fatty change throughout the right hepatic lobe. Partial, nonocclusive thrombus within the superior mesenteric vein just cephalad to its 1st branch. Liver biopsy--consistent with colorectal primary. Patient received the fourth cycle chemotherapy on 12/22/2015. She developed profuse diarrhea and presented to the emergency department for dehydration and shortness of breath. She was found to be an RVR atrial fibrillation with significant hypomagnesemia. She was admitted and started on IV hydration and magnesium replacement as well as medical management of atrial fibrillation. The diarrhea however continued for several more days during which she was given supportive care. Following that she developed an episode of ileus which extend her hospital stay. She was eventually discharged to rehabilitation. This morning she underwent an ultrasound of both lower extremities. She was found to have an acute DVT in the right common femoral vein. Treated with apixaban. Underwent left-sided lumpectomy for DCIS. Specimen - partial breast Procedure - excision with wire-guided localization Lymph node sampling ? no lymph nodes present Specimen integrity - single intact specimen Specimen size ? 15 x 9 x 4 cm Specimen laterality ? left Tumor site ? not specified Size (extent) of DCIS ? 0.3 cm in greatest dimension. See comment. 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 Architectural pattern - cribriform Nuclear grade - grade 2 (intermediate) Necrosis ? not identified Margins ? margin uninvolved by ductal carcinoma in situ. The tumor is 2 cm away from the closest anterior and posterior margins Treatment effect - no known presurgical therapy. Lymph nodes ? not submitted Distant metastasis ? not replicable Additional Pathologic Findings ? fibrocystic changes. - Focal changes consistent with previous biopsy site. Previous therapy: 1) FOLFOX x1; FOLFOX with Vectibix x3. 2) Underwent left hepatectomy 04/28/2016. Final pathology reviewed. Positive margin was cauterized during surgery. 3) Xeloda after liver directed therapy. Started cycle #3 11/27/2016 through 02/2017. 4) Infusional 5-fluorouracil with oxaliplatin on diagnosis lung metastasis. Current therapy: 1) FOLFIRI. Presents for ongoing oncologic management--evaluation for cycle 2. Interim history: She presented to the ED the evening of day 1 last cycle for hydration. She felt well enough afterwards to go home. She said with this cycle the onset of the pressure in her head in the dizziness came on much faster than previous cycles. She also received prophylactic hydration on day 3. She continues to have abdominal bloating after eating and get some queasiness and abdominal discomfort in general. Symptom is still relieved with Zofran. She's not had any diarrhea and in fact says her stools have been more formed lately. She hasn't had any cardiac symptoms including shortness of breath at rest, palpitation or other symptoms to suggest atrial fibrillation. No unusual bleeding or unexplained bruising. PMH, medications and allergies as below personally reviewed by me today. Any changes documented in appropriate section. ROS: Constitutional: Denies episodes of fever and night sweats. Neuro: See above.. HEENT: No recent change in voice, vision or hearing (significant b/l hearing loss--underwent audiogram early December 2017. Study showed a 50% decline in her hearing. Presumably this is from oxaliplatin.). Resp: See above. CVS: Denies exertional chest pain, PND, orthopnea. GI: See above. : No dysuria or gross hematuria. Stress incontinence stable. Endo: Denies hot flashes. Denies polyuria and polydipsia. Denies heat and cold intolerance. Musculoskeletal: Denies bone, back, joint and muscular pain. Derm: Denies rash. Denies diffuse pruritis. Heme: No unusual bleeding and/or unexplained bruising. Psych: Normal mood. PHYSICAL EXAM: Vitals: Blood pressure 108/57, pulse 67, temperature 36.4 ?C (97.6 ?F), temperature source Temporal Artery, weight 97.5 kg (215 lb). Well-appearing and in no acute distress. EYES: Sclerae are anicteric bilaterally. NECK: Supple. No enlargement of thyroid. LYMPHATIC: There is no palpable cervical, supraclavicular adenopathy. RESPIRATORY: Inspiratory breath sounds are of better in all pedersen and remain clear with no rhonchi or wheeze currently. CARDIOVASCULAR: Rhythm is irregular. ABDOMEN: The abdomen is nondistended and non-tender. Extremities: Free of edema. SKIN: No jaundice or rash. No petechiae. NEUROLOGIC: foil cutter II-XII are grossly intact. No focal motor weakness. ASSESSMENT/PLAN: (C18.2) Malignant neoplasm of ascending colon (HCC) (primary encounter diagnosis) (C78.7) Liver metastasis (HCC) Assessment: -Patient had completed several months of capecitabine following resection for an isolated metastasis. She tolerated capecitabine only marginally and was on lower doses for the last couple cycles. She had marked difficulty with diarrhea, dehydration and several hospitalizations/ER visits for toxicity. However, lung nodule had been stable. 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 -First cycle was complicated by port line rupture. 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 Also now documented 50% decline in hearing presumably from oxaliplatin also. -She tolerates FOLFIRI fairly well but she does have acute side effects including dizziness and pressure in both sides of her head as well as general feeling of being unwell. The symptoms are typically relieved with hydration. Because of the noncurable nature of her disease and the significance and worsening of the symptoms with successive cycles of chemotherapy, I recommend a 2 week break from treatment. Plan: -Omit cycle on Sunday. -Plan hydration on day 1 and day 3. -CT prior to cycle #8. 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 Plan: -Continue Xarelto. Sujit Vasquez DO Referring Provider: SUJIT VASQUEZ [[id number]] Allergies As of Date: 01/04/2018 Noted Allergy Reaction CORGARD (NADOLOL) 07/21/2015 12 - Shortness of Breath PENN 07/21/2015 12 - Shortness of Breath MORPHINE 07/21/2015 12 - Shortness of Breath Comments: Pt says she can tolerate oxycodone. PENICILLINS 07/21/2015 12 - Shortness of Breath PERFUMES 12/07/2017 12 - Shortness of Breath PRAVACHOL (PRAVASTATIN) 07/21/2015 12 - Shortness of Breath SULFITE 07/21/2015 12 - Shortness of Breath Comments: Sulfites in food. Verified by refrigerator tester. ZOCOR (SIMVASTATIN) 07/21/2015 12 - Shortness of Breath Comments: Pt reports allergy to brand Zocor, tolerates generic. Date Reviewed: 01/04/2018 Reviewed by: Sujit Vasquez - Fully Assessed Reason for Visit: Established Patient [[id number]] Primary Visit Diagnosis:Malignant neoplasm of ascending colon (HCC) [C18.2] Other Visit Diagnoses:Liver metastasis (HCC) [C78.7] Mesenteric vein thrombosis [I81] Follow-up and Disposition History Recorded Prescriptions as of 01/04/2018 Sig: ONDANSETRON HCL 8 MG TABLET Take 1 tablet by mouth every * PWBOTWVVYNSCUOV-FKSEMEU-HCTUP* Take 10 mL by mouth every 4 h* POTASSIUM CHLORIDE 20 MEQ ORA* Take 20 mEq by mouth once wyatt* RIVAROXABAN 15 MG TABLET Take 1 tablet by mouth daily * Patient taking differently: Take by mouth daily with dinn* LIDOCAINE-PRILOCAINE 2.5 %-2.* Apply 1 application to affect* SODIUM CHLORIDE 0.9% FLUSH Access implanted vascular acc* HEPARIN, PORCINE (PF) 100 UNI* Access implanted vascular acc* LOPERAMIDE 2 MG TABLET Take 2 mg by mouth as needed. SODIUM CHLORIDE 0.9% FLUSH Access implanted vascular acc* HEPARIN LOCK FLUSH (PORCINE) * Access implanted vascular acc* FUROSEMIDE 20 MG TABLET Take 2 tablets by mouth twice* MONTELUKAST 10 MG TABLET Take 1 tablet by mouth daily * MAGNESIUM OXIDE 400 MG TABLET Take 400 mg by mouth twice da* ACETAMINOPHEN 500 MG TABLET Take 1,000 mg by mouth as nee* DIPHENHYDRAMINE 25 MG TABLET Take 50 mg by mouth as needed. ISOSORBIDE MONONITRATE ER 60 * Take 60 mg by mouth once wilman* ASPIRIN 81 MG TABLET,DELAYED * Take 81 mg by mouth once wilman* METOPROLOL TARTRATE 50 MG TAB* Take 50 mg by mouth twice wyatt* LISINOPRIL 10 MG TABLET Take 10 mg by mouth once wilman* OMEPRAZOLE 20 MG CAPSULE,MELODY* Take 20 mg by mouth once wilman* MOMETASONE 220 MCG (60 DOSES)* Inhale 1 Puff as instructed. CHOLECALCIFEROL (VITAMIN D3) * Take 1 tablet by mouth once d* SIMVASTATIN 40 MG TABLET Take 20 mg by mouth daily at * NITROGLYCERIN 0.3 MG SUBLINGU* Dissolve 0.3 mg under the ton* ALBUTEROL SULFATE HFA 90 MCG/* Inhale 2 Puffs as instructed * EPINEPHRINE 0.15 MG/0.15 ML I* by INJECTION(UNSPECIFIED PARE* LORATADINE 10 MG TABLET Take 10 mg by mouth as needed. 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] INVALID FOR* Abnormal magnetic resonance imaging of liver [R*INVALID FOR* Liver metastasis (HCC) [C78.7] INVALID FOR* Diabetes (HCC) [E11.9] INVALID FOR* Hearing loss [H91.90] INVALID FOR* Hypertension [I10] INVALID FOR* Hyperlipidemia [E78.5] INVALID FOR* Carotid artery disease (HCC) [I77.9] INVALID FOR* Coronary artery disease [I25.10] INVALID FOR* Asthma [J45.909] INVALID FOR* Sleep apnea [G47.30] INVALID FOR* Arthritis [M19.90] INVALID FOR* Fibromyalgia [M79.7] INVALID FOR* Atrial arrhythmia [I49.8] INVALID FOR* H/O degenerative disc disease [Z87.39] INVALID FOR* Spondylolysis [M43.00] INVALID FOR* Radiculopathy [M54.10] INVALID FOR* Eczema [L30.9] INVALID FOR* Anemia [D64.9] INVALID FOR* 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*INVALID FOR* Colon cancer (HCC) [C18.9] Encounter Status:Closed by SUJIT VASQUEZ DO on 01/04/18 [place] ABS GR + CBC Collected: 01/04/2018 Status: F Source: [place] 9:35 AM [facility] REPOSITORY TYPE CODE TESTS RESULT OUT OF REFERENCE UNITS RANGE LAB WWBC 3.70-11.00 k/uL Low [place] WBC 2.22 LAB WRBC 3.90-5.20 m/uL Low [place] RBC 3.10 LAB WHGB 11.5-15.5 g/dL Low [place] Hemoglobin 10.5 LAB WHCT 36.0-46.0 % Low [place] Hematocrit 32.6 LAB WMCV 80.0-100.0 fL [place] High MCV 105.2 LAB WMCH 26.0-34.0 pg [place] MCH 33.9 LAB WMCHC 30.5-36.0 g/dL [place] MCHC 32.2 LAB WRDW 11.5-15.0 % [place] High RDW 15.1 LAB WPLT 150-400 k/uL [place] Platelet Cnt 187 LAB WMPV 9.0-12.7 fL [place] MPV 9.3 Result Comment: Test performed at: [facility], [address] [place] [address]. LAB ABGRAN 1.45-7.50 k/uL Low Absol 1.08 Gran Count COMP METABOLIC PANEL Collected: 01/04/2018 Status: F Source: [place] 9:35 AM [facility] TYPE CODE TESTS RESULT OUT OF REFERENCE UNITS RANGE LAB TP 6.3-8.0 g/dL Protein, Total 6.9 LAB ALB 3.9-4.9 g/dL Albumin 4.1 LAB CA 8.5-10.2 mg/dL Calcium, Total 9.3 LAB TBIL 0.2-1.3 mg/dL Bilirubin, Total 0.4 LAB ALKP 32-117 U/L Alkaline High Phosphatase 156 LAB AST 13-35 U/L AST 30 LAB GLU 74-99 mg/dL Glucose High 202 Result Comment: The [place] Diabetes Association (ADA) provides guidance for cutoff values for fasting glucose and random glucose. The ADA defines fasting as no caloric intake for at least 8 hours. Fas ting plasma glucose results between 100 to 125 mg/dL indicate increased risk for diabetes (prediabetes). Fasting plasma glucose results greater than or equal to 126 mg/dL meet the criteria for diagnosis of diabetes. In the absence of unequivocal hyperglycemia, results should be confirmed by repeat testing. In a patient with classic symptoms of hyperglycemia or hyperglycemic crisis, random plasma glucose results greater than or equal to 200 mg/dL meet the criteria for diagnosis of diabetes. Reference: Standards of Medical Care in Diabetes 2016, British Diabetes Association. Diabetes Care. 2016.39(Suppl 1). LAB BUN 7-21 mg/dL BUN High 24 LAB CRET 0.58-0.96 mg/dL Creatinine High 1.38 LAB NA 136-144 mmol/L Sodium 137 LAB K 3.7-5.1 mmol/L Potassium 4.2 LAB CL 97-105 mmol/L Low Chloride 95 LAB CO2 22-30 mmol/L CO2 27 LAB AGAP 9-18 mmol/L Anion Gap 15 LAB ALT 7-38 U/L ALT 28 LAB GFRAA eGFR- Amer. 45 LAB GFRNAA . eGFR-All Other Races 37 Result Comment: eGFR (Estimated GFR) Units of measure: mL/min/1.73 meters squared eGFR is derived from the reexpressed MDRD Study equation using the following parameters: serum creatinine, age, gender and race. The creatinine assay has been calibrated to be traceable to IDMS. An eGFR <60 mL/min/1.73m2 for >3 months is consistent with chronic kidney disease. Refer to KDOQI guidelines for clinical interpretation. In patients with unstable renal function, e.g. those with acute kidney injury, the eGFR may not accurately reflect actual GFR. Performed By: #### CMP, CEA #### [facility] [address] [place], [place] [address] CEA Collected: 01/04/2018 Status: F Source: [place] 9:35 AM [facility] REPOSITORY TYPE CODE TESTS RESULT OUT OF RANGE REFERENCE UNITS LAB CEA 0.0-2.9 ng/mL High CEA 5.1 Result Comment: Test analyzed by the Nicholas DxI method. Performed By: #### CMP, CEA #### [facility] [address] [place], [place] [address] 12 LEAD ELECTROCARDIOGRAM Observed: 12/26/2017 Status: F Source: [facility] 6:11 PM [facility] REPOSITORY [facility] Cardiovascular Services [address] [place] [address] 12 Lead EKG 12/24/17 2159 MR#: [id number] Acct: [id number] Name: QUYEN COKER Rep #: [id number] : 1940 77 From: Keith Vigil MD Attending Dr: Status: DEP ER Ordering Dr: Ricky Boo MD Date: 12/24/17 Location: ED Sex: F C Admitted: Test Reason : FATIGUE Blood Pressure : / mmHG Vent. Rate : 071 BPM Atrial Rate : 288 BPM P-R Int : 000 ms QRS Dur : 082 ms QT Int : 406 ms P-R-T Axes : 000 -23 022 degrees QTc Int : 441 ms Atrial fibrillation Leftward axis Poor R wave progression Confirmed by KEITH VIGIL ([id number]), news videotape editor NELL MCCOY ([id number]) on 12/26/2017 9:36:59 AM Referred By: DIPIKA Confirmed By:KEITH VIGIL 12/26/17 0937 Date Keith Vigil MD CC: Alvarez Mccoy MD; Ricky Boo MD Signed EMERGENCY DEPARTMENT Observed: 12/25/2017 Status: F Source: HIMR[facility] SUMMARY 12:43 AM [facility] REPOSITORY [facility] Medical Records Department [address] [place] [address] Emergency Department Summary 12/24/17 2252 MR#: [id number] Acct: [id number] Name: QUYEN COKER Rep #: [id number] : 1940 77 From: Ricky Boo MD PCP: Alvarez Mccoy MD Status: DEP ER - ER Visit Summary Date of Service: 12/24/17 Chief Complaint: Weakness, fatigue History of Present Illness: The patient is a 77 F presents to the emergency department with transient weakness and fatigue. The patient has a history of metastatic cancer. She is on chemotherapy. This is her fourth round of treatment. She has been following with Dr. Vasquez. She had her infusion today. She states that about 5:00, she just felt like she was mildly short of breath and lightheaded and dizzy. States it lasted about 5 minutes. It then returned at about 9:00 tonight. States that it lasted another 5 minutes and then went away. She states she had the same symptoms before during her treatment when she was found to be dehydrated. She denies any chest pain. She has had cough, but states this is chronic. She has had no productive sputum. She denies any fevers. She denies any chills or sweats. She denies any other systemic symptoms. On arrival, she states that she feels back to baseline. Physical Examination: Vital signs reviewed General: Well-nourished, well-developed Head: Normocephalic, atraumatic Eyes: Pupils equal and reactive, extraocular muscles intact Neck, supple, no lymphadenopathy Heart: Regular rate and rhythm Respiratory: No distress, clear bilaterally Abdomen: Soft, nontender, nondistended, no peritoneal signs Back: Nontender Extremities: Nontender, no edema, no cords Skin: Normal color no rash Neuro: Alert and oriented, no focal or lateralizing deficits Test Results: [] Emergency Department Course and Treatment: The patient's symptoms have basically resolved on arrival. She was given IV fluids. I did obtain some screening labs. Her white blood cells are diminished 1.5, but absolute neutrophil count is greater than thousand. She has had no fever or other infectious symptoms. She does have some evidence of dehydration with a creatinine of 1.6. The patient was aggressively hydrated. She has had improvement of symptoms and no recurrence. She has a benign reassuring exam. I do feel that this is more likely a side effect from her chemotherapy. The patient wants to attempt outpatient therapy and I feel this is reasonable. She will be discharged home. Treatment Plan: [] Disposition: Discharge Impression: 1. Dehydration secondary to chemotherapy This note was generated with [employer] dictation software. It may contain incorrect words, spelling, and punctuation that were not noted in review of the chart prior to signing ED Disposition - Plan for ED Patient: Chief Complaint: Fatigue Instructions: ED Weakness [facility] Referrals: Alvarez Mccoy MD [Primary Care Provider] - What to do if you have Problems For any increased pain, shortness of breath, bleeding, nausea or vomiting, chest pain, or any unexpected problems, contact your Primary Care Provider. Call [facility] ([phone]) or report to the closest Emergency Room. Call 911 if necessary. 12/25/17 0043 <Electronically signed by Ricky Boo MD> Date Ricky Boo MD Cosigner Signature (If Indicated): Date CC: Alvarez Mccoy MD CBC W/DIFF, AUTOMATED Collected: 12/24/2017 Status: C Source: [place] 10:15 PM [facility] REPOSITORY TYPE CODE TESTS RESULT OUT OF RANGE REFERENCE UNITS LAB L100.1000 4.4-11.0 K/mm3 Low WBC 1.5 LAB L100.1200 4.2-5.4 M/mm3 Low RBC 3.17 LAB L100.1300 12.0-15.0 g/dl Low HGB 10.4 LAB L100.1400 37-47 % Low HCT 32.1 LAB L100.1500 81-99 fL High MCV 101.3 LAB L100.1600 27.0-32.0 pg High MCH 32.8 LAB L100.1700 32-36 g/gl Normal MCHC 32.4 LAB L100.1810 11.6-14.6 % High RDW CV 15.5 LAB L100.1820 35.1-43.9 fl High RDW SD 57.2 LAB L100.1900 150-450 K/mm3 Normal PLT 172 LAB L100.2000 6.2-12.0 fl Normal MPV 9.6 LAB L100.2100 47-70 % High NEUT% 77.1 LAB L100.2200 19-41 % Normal LY% 21.6 LAB L100.2300 0-10 % Normal MONO% 1.3 LAB L100.2400 0-5 % Normal EO% 0.0 LAB L100.2500 0-1 % Normal BASO% 0.0 LAB L100.2550 0.0-0.9 % Normal IM GRAN % 0.000 Result Comment: IG% - Immature Granulocytes (promyelocytes, myelocytes and metamyelocytes) > 1% indicates that a LEFT SHIFT is Present. LAB L100.2620 2.0-7.7 X10 3/uL Low Absolute Neut 1.2 LAB L100.2720 0.83-4.51 X10 3/ul Low Absolute Lymph 0.33 LAB L100.4500 Normal SMEAR COMMENT SCANNED Result Comment: LYMPHOPENIA NOTED LAB L100.9900 Normal Reviewed PATH REV Result Comment: Leukopenia, neutropenia and Macrocytic anemia. Clinical correlation necessary. Norberto Hernandez M.D. 12/25/17 AMENDED REPORT 12/25/17 1428 PATH REV previously reported as: December taya Performed By: #### L100.0100 #### [facility] [place], [address] COMPREHENSIVE METABOLIC Collected: 12/24/2017 Status: F Source: [facility] 10:15 PM [facility] REPOSITORY TYPE CODE TESTS RESULT OUT OF RANGE REFERENCE UNITS LAB L501.0100 74-106 mg/dL High GLU 193 Result Comment: Fasting Glucose result greater than or equal to 126 mg/dL suggests DIABETES MELLITUS per A.D.A. criteria. Please note revised GLUCOSE reference range effective 2017. LAB L501.1000 7-18 mg/dL High BUN 22 LAB L501.1100 0.55-1.02 mg/dL High CREAT,SERUM 1.58 Result Comment: The validity of the calculated GFR AND GFRAA in patients over 70 years has not been determined. Clinical correlation is essential. LAB L501.1110 >60 mL/min Low EST GFR 34 Result Comment: Non- GFR Calc LAB L501.1115 >60 mL/min Low EST GFR - AA 41 Result Comment: GFR Calc LAB L501.1255 ml/min Normal Estimated CRCL 25.45 LAB L501.1300 10-20 RATIO Normal BUN/CRE 13.9 LAB L501.1500 6.4-8. g/dL Normal 2 T PROT 7.0 LAB L501.1800 3.2-5. g/dL Normal 0 ALB 3.3 LAB L501.1950 2.2-4. g/dL Normal 2 GLOB 3.7 LAB L501.2000 0.9-2. RATIO Normal 4 A/G 0.9 LAB L501.2200 8.5-10 mg/dL Normal .1 CA 9.2 LAB L501.4100 15-37 U/L Normal AST 32 LAB L501.4305 45-117 U/L High ALK P 187 LAB L501.4405 13-56 U/L Normal ALT 46 LAB L501.4600 0.20-1 mg/dL Normal .00 T BILI 0.70 LAB L501.5300 136-14 mmol/L Normal 5 NA 136 LAB L501.5600 3.5-5. mmol/L Normal 1 K 4.1 LAB L501.5900 98-107 mmol/L Normal CL 102 LAB L501.6100 21.0-3 mmol/L Normal 2.0 CO2 26.0 LAB L501.6200 5-15 Normal GAP 8 Performed By: #### L500.4050 #### [facility] [address] [place], [address] CHEST 1 VIEW Observed: 12/24/2017 Status: F Source: HIMROD (PORTABLE) 9:53 PM [facility] REPOSITORY [facility] Imaging Services [address] [place] [address] Chest 1 View (Portable) MR#: [id number] Acct: [id number] Name: QUYEN COKER Rep #: [id number] : 1940 F 77 From: Polo Herrera DO PCP: Alvarez Mccoy MD Status: REG ER Study: Chest 1 View (Portable) Date of Exam: 12/24/17 Exam# [id number] Ordering Dr: Ricky Boo MD STUDY: X-RAY CHEST REASON FOR EXAM: Female, 77 years old. Lung cancer TECHNIQUE: Single frontal view COMPARISON: December 13 2017 FINDINGS: Sternotomy wires over the mediastinum. Right venous port with tip at the mid SVC level. The lungs are expanded. Stable right lung base calcified granuloma. Cardiomegaly.. Normal mediastinum and vivek. Normal visualized pulmonary arteries. Calcified aortic arch and descending thoracic aorta. Mild degenerative changes and scoliosis of the thoracic spine. Normal visualized ribs, clavicles, and shoulders. There is no demonstrated abnormality of the visualized soft tissue structures of the upper abdomen. RAD/Chest 1 View (Portable) IMPRESSION: Stable right lung base calcified granuloma. Stable cardiomegaly. Electronically Signed: Polo Herrera DO at 22:11 EDT Tel [phone], Service support , CC: Alvarez Mccoy MD; Ricky Boo MD Aerologist: Signed KELLEN ABS GR + CBC Collected: 12/24/2017 Status: F Source: [place] 10:43 AM [facility] REPOSITORY TYPE CODE TESTS RESULT OUT OF REFERENCE UNITS RANGE LAB WWBC 3.70-11.00 k/uL Low [place] WBC 2.53 LAB WRBC 3.90-5.20 m/uL Low [place] RBC 2.99 LAB WHGB 11.5-15.5 g/dL Low [place] Hemoglobin 10.1 LAB WHCT 36.0-46.0 % Low [place] Hematocrit 31.6 LAB WMCV 80.0-100.0 fL [place] High MCV 105.7 LAB WMCH 26.0-34.0 pg [place] MCH 33.8 LAB WMCHC 30.5-36.0 g/dL [place] MCHC 32.0 LAB WRDW 11.5-15.0 % [place] High RDW 15.3 LAB WPLT 150-400 k/uL [place] Platelet Cnt 154 LAB WMPV 9.0-12.7 fL [place] MPV 9.4 Result Comment: Test performed at: [facility] [place], [address] [place] [address]. LAB ABGRAN 1.45-7.50 k/uL Low Absol 1.23 Gran Count PROGRESS Observed: 12/21/2017 Status: COMPLETED Source: [place] 10:22 AM [facility] REPOSITORY HNO ID: [id number] Author: Sujit Vasquez Service: (none) Author Type: Physician Type: Progress Notes Filed: 12/21/2017 10:44 AM Note Text: Diagnosis: 1) Metastatic colon cancer. KRAS - No variant detected [Reference sequence: (NM_[id number])]. NRAS - No variant detected [Reference sequence: ([id number])]. BRAF - No variant detected [Reference sequence: (NM_[id number])]. 2) DCIS. 3) IMV thrombus. 4) DVT. HPI: The patient is a 77 yo female with a PMH significant for hyperlipidemia, HTN, CAD (PR, CABG x2 2011; stent x1 2013), PVD (carotid artery stenosis s/p CEA left side 2012), sleep apnea (uses CPAP), arthritis (chronic lower back and from lower thoracic area to the neck pain). She developed rectal bleeding in March and underwent evaluation with EGD. Evidently that study was normal. Next underwent colonoscopy and was observed to have a tumor in the cecum. Had normal colonoscopy about 2 years prior. Underwent right hemicolectomy 07/28/2015. 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 Through muscularis propria into subserosal adipose tissue, but not extending to the serosal surface. All margins negative. No lymphovascular invasion. No perineural invasion. No tumor deposits. None of 14 nodes positive. No evidence MSI by IHC. Had screening mammogram 08/2015. Abnormality left breast. Dx mammo and US 09/06/2015. 6.5 x 7.9 mm nodular density with focal calcifications in fthe slightly upper lateral portion of the left breast. Underwent stereotactic core biopsy 09/15/2015. DCIS, cribriform and solid, grade 2, single cell necrosis; no invasive carcinoma. MRI of the breast 10/11/2015: Longitudinally oriented area of mild enhancement in the central left breast thought to be due to postbiopsy hemorrhage/inflammation. Tumor along this entire length is thought less likely but cannot be excluded. MRI of the abdomen and pelvis 10/13/2015: Liver: There is a large, heterogeneously enhancing mass within the entire lateral segment of the left hepatic lobe and extending into the medial segment as well. This mass measures approximately 8.2 x 5.8 x 6.3 cm. This is most consistent with neoplasm, perhaps metastatic given the patient's history of colonic carcinoma. No additional hepatic lesions are seen. There is patchy hepatic fatty change throughout the right hepatic lobe. Partial, nonocclusive thrombus within the superior mesenteric vein just cephalad to its 1st branch. Liver biopsy--consistent with colorectal primary. Patient received the fourth cycle chemotherapy on 12/22/2015. She developed profuse diarrhea and presented to the emergency department for dehydration and shortness of breath. She was found to be an RVR atrial fibrillation with significant hypomagnesemia. She was admitted and started on IV hydration and magnesium replacement as well as medical management of atrial fibrillation. The diarrhea however continued for several more days during which she was given supportive care. Following that she developed an episode of ileus which extend her hospital stay. She was eventually discharged to rehabilitation. This morning she underwent an ultrasound of both lower extremities. She was found to have an acute DVT in the right common femoral vein. Treated with apixaban. Underwent left-sided lumpectomy for DCIS. Specimen - partial breast Procedure - excision with wire-guided localization Lymph node sampling ? no lymph nodes present Specimen integrity - single intact specimen Specimen size ? 15 x 9 x 4 cm Specimen laterality ? left Tumor site ? not specified Size (extent) of DCIS ? 0.3 cm in greatest dimension. See comment. 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 Architectural pattern - cribriform Nuclear grade - grade 2 (intermediate) Necrosis ? not identified Margins ? margin uninvolved by ductal carcinoma in situ. The tumor is 2 cm away from the closest anterior and posterior margins Treatment effect - no known presurgical therapy. Lymph nodes ? not submitted Distant metastasis ? not replicable Additional Pathologic Findings ? fibrocystic changes. - Focal changes consistent with previous biopsy site. Previous therapy: 1) FOLFOX x1; FOLFOX with Vectibix x3. 2) Underwent left hepatectomy 04/28/2016. Final pathology reviewed. Positive margin was cauterized during surgery. 3) Xeloda. Started cycle #3 11/27/2016 through 02/2017. 4) Infusional 5-fluorouracil with oxaliplatin on diagnosis metastases lung. Current therapy: 1) FOLFIRI. Presents for ongoing oncologic management--evaluation for cycle 2. Interim history: Was seen in the ER on day 4 following cycle 3. This was for orthostasis. She was seen in the office just prior and was feeling better and her was concerned about potential cardiac problem. PR was ruled out. She received hydration and felt better. She still has some abdominal bloating and after eating she gets some queasiness and discomfort. Zofran relieves this. Otherwise she has not had any diarrhea. She does have nausea that comes and goes as well but again Zofran relieves that as well. She's not had any significant respiratory symptoms and her cough has been doing much better. She is not short of breath at rest. No palpitations or other symptoms from her atrial fibrillation. No unusual bleeding or unexplained bruising. She's not had any episodes of jaundice. PMH, medications and allergies as below personally reviewed by me today. Any changes documented in appropriate section. ROS: Constitutional: Denies episodes of fever and night sweats. Neuro: Denies vertigo and dizziness. HEENT: No recent change in voice, vision or hearing (significant b/l hearing loss--stable). Resp: See above. CVS: Denies exertional chest pain, PND, orthopnea. GI: See above. : No dysuria or gross hematuria. Stress incontinence stable. Endo: Denies hot flashes. Denies polyuria and polydipsia. Denies heat and cold intolerance. Musculoskeletal: Denies bone, back, joint and muscular pain. Derm: Denies rash. Denies diffuse pruritis. Heme: No unusual bleeding and/or unexplained bruising. Psych: Normal mood. PHYSICAL EXAM: Vitals: Blood pressure 130/65, pulse 90, temperature 36.7 ?C (98.1 ?F), weight 99.8 kg (220 lb). Well-appearing and in no acute distress. EYES: Sclerae are anicteric bilaterally. NECK: Supple. No enlargement of thyroid. LYMPHATIC: There is no palpable cervical, supraclavicular adenopathy. RESPIRATORY: Inspiratory breath sounds are of better in all pedersen and remain clear with no rhonchi or wheeze currently. CARDIOVASCULAR: Rhythm is irregular. ABDOMEN: The abdomen is nondistended and non-tender. Extremities: Free of edema. SKIN: No jaundice or rash. No petechiae. NEUROLOGIC: foil cutter II-XII are grossly intact. No focal motor weakness. ASSESSMENT/PLAN: (C18.2) Malignant neoplasm of ascending colon (HCC) (primary encounter diagnosis) (C78.7) Liver metastasis (HCC) Assessment: -Patient had completed several months of capecitabine following resection for an isolated metastasis. She tolerated capecitabine only marginally and was on lower doses for the last couple cycles. She had marked difficulty with diarrhea, dehydration and several hospitalizations/ER visits for toxicity. However, lung nodule had been stable. 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 -First cycle was complicated by port line rupture. 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 -Tolerating FOLFIRI well overall with no diarrhea but she is getting dehydrated and orthostasis on day 4 and 5. -I reviewed CT results. Near FL liver. Stable 6 mm lung nodule. -Discussed adding hydration on day 3 when she's here for pump removal. Plan: -Recheck CBC on Sunday prior to chemotherapy menstruation. -Plan 1 hour hydration, 500 cc on day 3 when here for pump removal. -CT prior to cycle #8. 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 Plan: -Continue Xarelto. Sujit Vasquez DO CNOVSP Observed: 12/21/2017 Status: COMPLETED Source: [place] 10:00 AM [facility] REPOSITORY Visit (SP) Office ([place]) QUYEN COKER ([id number]) 1940 F CHT Date Time Provider Department 12/21/17 10:00 AM SUJIT VASQUEZ During your visit today, we recorded the following information about you: Temperature Pulse Blood pressure Weight 98.1 degrees 90/minute 130/65 99.8 kg Abbie Ribeiro LPN 12/21/2017 10:30 AM Signed Est patient. Discuss recent labs and CT scan. Treatment Sunday. Abbie Vasquez DO 12/21/2017 10:44 AM Signed Diagnosis: 1) Metastatic colon cancer. KRAS - No variant detected [Reference sequence: (NM_004985.4)]. NRAS - No variant detected [Reference sequence: (NM_002524.4)]. BRAF - No variant detected [Reference sequence: (NM_004333.4)]. 2) DCIS. 3) IMV thrombus. 4) DVT. HPI: The patient is a 77 yo female with a PMH significant for hyperlipidemia, HTN, CAD (PR, CABG x2 2011; stent x1 2013), PVD (carotid artery stenosis s/p CEA left side 2012), sleep apnea (uses CPAP), arthritis (chronic lower back and from lower thoracic area to the neck pain). She developed rectal bleeding in March and underwent evaluation with EGD. Evidently that study was normal. Next underwent colonoscopy and was observed to have a tumor in the cecum. Had normal colonoscopy about 2 years prior. Underwent right hemicolectomy 07/28/2015. 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 Through muscularis propria into subserosal adipose tissue, but not extending to the serosal surface. All margins negative. No lymphovascular invasion. No perineural invasion. No tumor deposits. None of 14 nodes positive. No evidence MSI by IHC. Had screening mammogram 08/2015. Abnormality left breast. Dx mammo and US 09/06/2015. 6.5 x 7.9 mm nodular density with focal calcifications in fthe slightly upper lateral portion of the left breast. Underwent stereotactic core biopsy 09/15/2015. DCIS, cribriform and solid, grade 2, single cell necrosis; no invasive carcinoma. MRI of the breast 10/11/2015: Longitudinally oriented area of mild enhancement in the central left breast thought to be due to postbiopsy hemorrhage/inflammation. Tumor along this entire length is thought less likely but cannot be excluded. MRI of the abdomen and pelvis 10/13/2015: Liver: There is a large, heterogeneously enhancing mass within the entire lateral segment of the left hepatic lobe and extending into the medial segment as well. This mass measures approximately 8.2 x 5.8 x 6.3 cm. This is most consistent with neoplasm, perhaps metastatic given the patient's history of colonic carcinoma. No additional hepatic lesions are seen. There is patchy hepatic fatty change throughout the right hepatic lobe. Partial, nonocclusive thrombus within the superior mesenteric vein just cephalad to its 1st branch. Liver biopsy--consistent with colorectal primary. Patient received the fourth cycle chemotherapy on 12/22/2015. She developed profuse diarrhea and presented to the emergency department for dehydration and shortness of breath. She was found to be an RVR atrial fibrillation with significant hypomagnesemia. She was admitted and started on IV hydration and magnesium replacement as well as medical management of atrial fibrillation. The diarrhea however continued for several more days during which she was given supportive care. Following that she developed an episode of ileus which extend her hospital stay. She was eventually discharged to rehabilitation. This morning she underwent an ultrasound of both lower extremities. She was found to have an acute DVT in the right common femoral vein. Treated with apixaban. Underwent left-sided lumpectomy for DCIS. Specimen - partial breast Procedure - excision with wire-guided localization Lymph node sampling ? no lymph nodes present Specimen integrity - single intact specimen Specimen size ? 15 x 9 x 4 cm Specimen laterality ? left Tumor site ? not specified Size (extent) of DCIS ? 0.3 cm in greatest dimension. See comment. 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 Architectural pattern - cribriform Nuclear grade - grade 2 (intermediate) Necrosis ? not identified Margins ? margin uninvolved by ductal carcinoma in situ. The tumor is 2 cm away from the closest anterior and posterior margins Treatment effect - no known presurgical therapy. Lymph nodes ? not submitted Distant metastasis ? not replicable Additional Pathologic Findings ? fibrocystic changes. - Focal changes consistent with previous biopsy site. Previous therapy: 1) FOLFOX x1; FOLFOX with Vectibix x3. 2) Underwent left hepatectomy 04/28/2016. Final pathology reviewed. Positive margin was cauterized during surgery. 3) Xeloda. Started cycle #3 11/27/2016 through 02/2017. 4) Infusional 5-fluorouracil with oxaliplatin on diagnosis metastases lung. Current therapy: 1) FOLFIRI. Presents for ongoing oncologic management--evaluation for cycle 2. Interim history: Was seen in the ER on day 4 following cycle 3. This was for orthostasis. She was seen in the office just prior and was feeling better and her was concerned about potential cardiac problem. PR was ruled out. She received hydration and felt better. She still has some abdominal bloating and after eating she gets some queasiness and discomfort. Zofran relieves this. Otherwise she has not had any diarrhea. She does have nausea that comes and goes as well but again Zofran relieves that as well. She's not had any significant respiratory symptoms and her cough has been doing much better. She is not short of breath at rest. No palpitations or other symptoms from her atrial fibrillation. No unusual bleeding or unexplained bruising. She's not had any episodes of jaundice. PMH, medications and allergies as below personally reviewed by me today. Any changes documented in appropriate section. ROS: Constitutional: Denies episodes of fever and night sweats. Neuro: Denies vertigo and dizziness. HEENT: No recent change in voice, vision or hearing (significant b/l hearing loss--stable). Resp: See above. CVS: Denies exertional chest pain, PND, orthopnea. GI: See above. : No dysuria or gross hematuria. Stress incontinence stable. Endo: Denies hot flashes. Denies polyuria and polydipsia. Denies heat and cold intolerance. Musculoskeletal: Denies bone, back, joint and muscular pain. Derm: Denies rash. Denies diffuse pruritis. Heme: No unusual bleeding and/or unexplained bruising. Psych: Normal mood. PHYSICAL EXAM: Vitals: Blood pressure 130/65, pulse 90, temperature 36.7 ?C (98.1 ?F), weight 99.8 kg (220 lb). Well-appearing and in no acute distress. EYES: Sclerae are anicteric bilaterally. NECK: Supple. No enlargement of thyroid. LYMPHATIC: There is no palpable cervical, supraclavicular adenopathy. RESPIRATORY: Inspiratory breath sounds are of better in all pedersen and remain clear with no rhonchi or wheeze currently. CARDIOVASCULAR: Rhythm is irregular. ABDOMEN: The abdomen is nondistended and non-tender. Extremities: Free of edema. SKIN: No jaundice or rash. No petechiae. NEUROLOGIC: foil cutter II-XII are grossly intact. No focal motor weakness. ASSESSMENT/PLAN: (C18.2) Malignant neoplasm of ascending colon (HCC) (primary encounter diagnosis) (C78.7) Liver metastasis (HCC) Assessment: -Patient had completed several months of capecitabine following resection for an isolated metastasis. She tolerated capecitabine only marginally and was on lower doses for the last couple cycles. She had marked difficulty with diarrhea, dehydration and several hospitalizations/ER visits for toxicity. However, lung nodule had been stable. 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 -First cycle was complicated by port line rupture. 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 -Tolerating FOLFIRI well overall with no diarrhea but she is getting dehydrated and orthostasis on day 4 and 5. -I reviewed CT results. Near FL liver. Stable 6 mm lung nodule. -Discussed adding hydration on day 3 when she's here for pump removal. Plan: -Recheck CBC on Sunday prior to chemotherapy menstruation. -Plan 1 hour hydration, 500 cc on day 3 when here for pump removal. -CT prior to cycle #8. 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 Plan: -Continue Xarelto. Sujit Vasquez DO Referring Provider: SUJIT VASQUEZ [[id number]] Allergies As of Date: 12/21/2017 Noted Allergy Reaction CORGARD (NADOLOL) 07/21/2015 12 - Shortness of Breath PENN 07/21/2015 12 - Shortness of Breath MORPHINE 07/21/2015 12 - Shortness of Breath Comments: Pt says she can tolerate oxycodone. PENICILLINS 07/21/2015 12 - Shortness of Breath PERFUMES 12/07/2017 12 - Shortness of Breath PRAVACHOL (PRAVASTATIN) 07/21/2015 12 - Shortness of Breath SULFITE 07/21/2015 12 - Shortness of Breath Comments: Sulfites in food. Verified by refrigerator tester. ZOCOR (SIMVASTATIN) 07/21/2015 12 - Shortness of Breath Comments: Pt reports allergy to brand Zocor, tolerates generic. Date Reviewed: 12/21/2017 Reviewed by: Abbie Ribeiro LPN - Fully Assessed Reason for Visit: Established Patient [[id number]] Primary Visit Diagnosis:Malignant neoplasm of ascending colon (HCC) [C18.2] Other Visit Diagnosis:Liver metastasis (HCC) [C78.7] Order(s):KELLEN ABS GRAN CT + CBC [SQWAGCBC] Order #: [id number] FUTURE ondansetron (ZOFRAN) 8 mg tabletTake 1 tablet by mouth every 8 hours as needed for Nausea/Vomiting.Disp: 90 tabletRfl: 2 Follow-up and Disposition History Recorded Prescriptions as of 12/21/2017 Sig: ONDANSETRON HCL 8 MG TABLET Take 1 tablet by mouth every * CXWNOUKKVARWATM-KOWGJVL-PNUQT* Take 10 mL by mouth every 4 h* POTASSIUM CHLORIDE 20 MEQ ORA* Take 20 mEq by mouth once wyatt* RIVAROXABAN 15 MG TABLET Take 1 tablet by mouth daily * Patient taking differently: Take by mouth daily with dinn* LIDOCAINE-PRILOCAINE 2.5 %-2.* Apply 1 application to affect* SODIUM CHLORIDE 0.9% FLUSH Access implanted vascular acc* HEPARIN, PORCINE (PF) 100 UNI* Access implanted vascular acc* LOPERAMIDE 2 MG TABLET Take 2 mg by mouth as needed. SODIUM CHLORIDE 0.9% FLUSH Access implanted vascular acc* HEPARIN LOCK FLUSH (PORCINE) * Access implanted vascular acc* FUROSEMIDE 20 MG TABLET Take 2 tablets by mouth twice* MONTELUKAST 10 MG TABLET Take 1 tablet by mouth daily * MAGNESIUM OXIDE 400 MG TABLET Take 400 mg by mouth twice da* ACETAMINOPHEN 500 MG TABLET Take 1,000 mg by mouth as nee* DIPHENHYDRAMINE 25 MG TABLET Take 50 mg by mouth as needed. ISOSORBIDE MONONITRATE ER 60 * Take 60 mg by mouth once wilman* ASPIRIN 81 MG TABLET,DELAYED * Take 81 mg by mouth once wilman* METOPROLOL TARTRATE 50 MG TAB* Take 50 mg by mouth twice wyatt* LISINOPRIL 10 MG TABLET Take 10 mg by mouth once wilman* OMEPRAZOLE 20 MG CAPSULE,MELODY* Take 20 mg by mouth once wilman* MOMETASONE 220 MCG (60 DOSES)* Inhale 1 Puff as instructed. CHOLECALCIFEROL (VITAMIN D3) * Take 1 tablet by mouth once d* SIMVASTATIN 40 MG TABLET Take 20 mg by mouth daily at * NITROGLYCERIN 0.3 MG SUBLINGU* Dissolve 0.3 mg under the ton* ALBUTEROL SULFATE HFA 90 MCG/* Inhale 2 Puffs as instructed * EPINEPHRINE 0.15 MG/0.15 ML I* by INJECTION(UNSPECIFIED PARE* LORATADINE 10 MG TABLET Take 10 mg by mouth as needed. PREDNISONE 10 MG TABLET Take 1 tablet twice the day b* KETOCONAZOLE 2 % TOPICAL CREAM Apply 1 application to affect* PROMETHAZINE 25 MG TABLET Take 0.5-1 tablets by mouth e* FERREX 150 MG IRON CAPSULE Take 1 capsule by mouth once * CLOTRIMAZOLE-BETAMETHASONE 1 * Apply 1 application to affect* HYDROCORTISONE VALERATE 0.2 %* Apply 1 application to affect* TRIAMCINOLONE ACETONIDE 0.025* Apply 1 application to affect* Problem List As Of Date 12/21/2017 Noted Resolved Malignant neoplasm of ascending colon (HCC) [C1*INVALID FOR* Abnormal mammogram of left breast [R92.8] INVALID FOR* 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] INVALID FOR* Abnormal magnetic resonance imaging of liver [R*INVALID FOR* Liver metastasis (HCC) [C78.7] INVALID FOR* Diabetes (HCC) [E11.9] INVALID FOR* Hearing loss [H91.90] INVALID FOR* Hypertension [I10] INVALID FOR* Hyperlipidemia [E78.5] INVALID FOR* Carotid artery disease (HCC) [I77.9] INVALID FOR* Coronary artery disease [I25.10] INVALID FOR* Asthma [J45.909] INVALID FOR* Sleep apnea [G47.30] INVALID FOR* Arthritis [M19.90] INVALID FOR* Fibromyalgia [M79.7] INVALID FOR* Atrial arrhythmia [I49.8] INVALID FOR* H/O degenerative disc disease [Z87.39] INVALID FOR* Spondylolysis [M43.00] INVALID FOR* Radiculopathy [M54.10] INVALID FOR* Eczema [L30.9] INVALID FOR* Anemia [D64.9] INVALID FOR* 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*INVALID FOR* Colon cancer (HCC) [C18.9] Visit Notes: >> Abbie Ribeiro LPN SunDec 21, 2017 10:00 AM Status: Signed Est patient. Discuss recent labs and CT scan. Treatment Sunday. Abbie Ribeiro LPN Encounter Status:Closed by SUJIT VASQUEZ DO on 12/21/17 12 LEAD ELECTROCARDIOGRAM Observed: 12/18/2017 Status: F Source: HIMROD 3:27 PM [facility] REPOSITORY [facility] Cardi[facility] Services [address] [place] [address] [id number] Lead EKG 12/13/17 1208 MR#: [id number] Acct: [id number] Name: QUYEN COKER Rep #: [id number] : 1940 77 From: Sujit Maya MD Attending Dr: Status: DEP ER Ordering Dr: Robin James MD Date: 12/13/17 Location: ED Sex: F C Admitted: Test Reason : JAW PAIN Blood Pressure : / mmHG Vent. Rate : 068 BPM Atrial Rate : 107 BPM P-R Int : 000 ms QRS Dur : 082 ms QT Int : 418 ms P-R-T Axes : 000 -31 014 degrees QTc Int : 444 ms Atrial fibrillation Left axis deviation Low voltage QRS Poor R wave progression Abnormal ECG Confirmed by SELINA CARVAJAL, SUJIT ([id number]), news videotape editor NELL MCCOY ([id number]) on 12/18/2017 3:26:45 PM Referred By: FELECIA/LIANNE Confirmed By:SUJIT MAYA MD 12/18/17 1526 Date Sujit Maya MD CC: Alvarez Mccoy MD; Robin James MD Signed PROGRESS Observed: 12/18/2017 Status: COMPLETED Source: [place] 1:43 PM [facility] REPOSITORY HNO ID: [id number] Author: Lc Elmore Service: (none) Author Type: Physician Type: Progress Notes Filed: 12/18/2017 1:56 PM Note Text: HISTORY AND PHYSICAL - NIPPLE DISCHARGE - LEFT BREAST Quyen Coker 1940 December 18, 2017 REFERRING PHYSICIAN: Alvarez Mccoy MD CHIEF COMPLAINT: NIPPLE DISCHARGE - LEFT HPI: Quyen is a patient I am following for left medial breast microcalcifications, 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 She returns here for follow-up of her breast related issues. 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 Her complicated history is as follows: The patient is a 74 year old female with a complaint of rectal bleeding and anemia. The patient initially underwent upper endoscopy which demonstrated no obvious source. The patient underwent colonoscopy by Dr. Chuck Penn on July 13 which demonstrated a fungating mass at the cecum ascending colon junction. Pathology returned as invasive adenocarcinoma. The patient is being seen by me today at the request of Dr. Penn for my opinion and advice regarding right colon cancer. The patient has a history of coronary disease and carotid stenosis. She has been on Plavix which was on hold after her endoscopy and prior to her surgical procedure. Additionally, she had undergone previous left carotid endarterectomy. Patient was recently evaluated by her metal patternmaker, Dr. Sujit Maya. She had undergone coronary bypass grafting in 2011 and is status post an LAD and left circumflex stent placement in November 2013. 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 She has good left ventricular ejection fraction. It was felt she was an acceptable risk for surgical intervention and did not require further preoperative cardiac diagnostic studies. I performed a laparoscopic right hemicolectomy on July 28, 2015. The pathology demonstrated: The tumor's size was 3.0x2.6.1.0 cm. Macroscopic tumor perforation was not identified. Histologic type: adenocarcinoma Histologic Grade: Low grade Histologic features for microsatellite instability - Intratumoral lymphocytic response: Mild to moderate Peritumoral lymphocytic response: Crohn's like lymphoid response: None Tumor subtype and differentiation: Not applicable MIcroscopic tumor extension: tumor invades through muscularis propria into subserosal adipose Lymphovascular invasion: None Perineural invasion: None Surgical margins were free of disease. Lymph nodes examined: 14 Lymph nodes involved: 0 PATHOLOGIC STAGE: pT 3, pN 0, M 0 Quyen noted loose stools had been continuing for the past few days at her August 15 follow-up. She has been maintaining a low residue diet. She also notes very transient dizziness. Post operative pain has been well controlled. The patient notes nausea. The patient`s appetite has been average. She was admitted to the hospital on August 22 with further looser stools and dizziness and some dehydration. Stool cultures were obtained which demonstrated no abnormalities. She was started on probiotics and Imodium and this significantly improved her stool frequency. She notes that at this point in time, her stools remain somewhat green but are less loose than they were. Overall she states her appetite still remains fair. She also notes that she is having issues of persistent nausea. She noted that this seemed similar to this as she had had in the past and was evaluated by Dr. Penn with upper endoscopy which was apparently unremarkable. The patient has been on a 20 mg Prilosec dose for some time. She notes that her nausea symptoms improve if she takes Maalox. The patient still is complaining of episodic transient dizziness that is worse if she raises up more quickly. Additionally, the patient underwent a recent follow-up mammogram. This was read as demonstrating a 8 mm mass with microcalcifications in her left breast. It was recommended biopsy listed BI-RADS Category 4. The patient did not have ultrasound performed. She irregularly performs a self breast exam and notes overall lumpy breasts but denies any specific changes. She denies skin changes, nipple discharge, or other difficulties. She had a previous mammogram that did demonstrate some microcalcifications similar mass. I obtained a CT scan of the abdomen and pelvis. This demonstrated no intra-abdominal abnormalities and demonstrated the anastomosis to have no signs of leakage inflammation or abscess which I felt could've been concerning for her abdominal complaints. There was noted to be in an area of asymmetric contrast enhancement in the liver which seemed to go away in delayed films. There were a list of possible options for this and MRI was recommended as an option. The patient had a previous CT scan preop which demonstrated similar findings from my standpoint and intraoperatively had no abnormalities noted in this location at the liver surface. I felt it was not necessary to have an MRI. Dr. Vasquez evaluated the patient and was concerned of those findings and recommended an MRI be obtained. The patient has since seen her primary care physician. Her oral hypoglycemic medication was stopped which has both cured her dizziness symptoms and her epigastric/nausea symptoms. We also obtained ultrasound which demonstrates no specific abnormalities in her left breast I performed a left side stereotactic biopsy for her abnormal mammogram on September 15, 2014. The pathology returned as DCIS. The patient notes some resolution of the bruising since the procedure but now notes a mass that worries her at the biopsy site. 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 Nuclear Grade - 2 (intermediate). Necrosis - present, single cell necrosis. Calcifications - present. Additional findings - focal fibrocystic changes. Negative for invasive carcinoma in the submitted specimen. I plan to obtain an MRI to assess her breast for additional or more extended pathology. MRI of the breast returned as: IMPRESSION: KNOWN BIOPSY PROVEN MALIGNANCY Longitudinally oriented area of mild enhancement in the central left breast thought to be due to postbiopsy hemorrhage/inflammation. Tumor along this entire length is thought less likely but cannot be excluded. Brandee condon/giovanny:10/12/2015 12:43:57 Cash Room Clerk: [facility] letter sent: Category 6 MRI BI-RADS: 6 Known biopsy proven malignancy Aerologist: VIDYA Transcribe Date/Time: Oct 12 2015 12:43P Dictated by : BRANDEE AYALA MD This examination was interpreted and the report reviewed and electronically signed by: BRANDEE AYALA MD On Oct 12 2015 12:43PM Results-Findings * * *Final Report* * * DATE OF EXAM: Oct 11 2015 9:45AM [facility] [id number] - MRI BREAST YAN WWO / PROCEDURE REASON: DCIS (D05.10), ABNORMAL MAMMOGRAM OF LEFT BREAST (R92.8) * * * * Physician Interpretation * * * * #[id number] - MRI BREAST YAN WWO BREAST MRI OF BOTH BREASTS : 10/11/2015 HISTORY: Dcis (D05.10), Abnormal Mammogram Of Left Breast (R92.8). RESULT: No prior exams were available for comparison. Interpretation of this MRI was correlated with available mammograms. Gadolinium contrast calibrated to patient weight was injected. Axial T1, T2, pre and post contrast T1, and coronal images were obtained with a dedicated breast coil. The breasts are mostly fatty bilaterally. No mass, architectural distortion or abnormal enhancement is seen in the right breast. In the mid central right breast, centered just above the nipple is a longitudinal area of mild increased progressive enhancement. This is in the vicinity of recent biopsy. There is susceptibility artifact. However, the length of abnormal enhancement is much greater than the targeted lesion measuring approximately 4 cm in craniocaudal dimension. Maximal AP dimension is approximately 1.7 cm and maximal transverse dimension 1.3 cm. This abnormal enhancement could be biopsy related, perhaps representing postbiopsy hemorrhage/inflammation. No other areas of abnormal enhancement or architectural distortion are seen. There are no abnormalities seen in the axillary nodes region or infraclavicular nodes. The patient's abdominal MRI returned as: IMPRESSION: Large left hepatic lobe lesion, neoplastic in appearance and likely metastatic from the patient's known colonic CA. Partial SMV thrombus. COMMUNICATION: Communicated with: SUJIT Hernandez 10/13/2015 12:20 PM. Aerologist: [facility] Transcribe Date/Time: Oct 13 2015 12:26P Dictated by : BRANDEE AYALA MD This examination was interpreted and the report reviewed and electronically signed by: BRANDEE AYALA MD On Oct 13 2015 12:26PM Results-Findings * * *Final Report* * * DATE OF EXAM: Oct 13 2015 9:35AM [facility] [id number] - MRI ABDOMEN WWO CONTRAST / PROCEDURE REASON: abnormal ct of lever r93.2 malignant neoplasm of ascending colon c18.2 dcia lef * * * * Physician Interpretation * * * * RESULT: MRI of the abdomen without and with intravenous contrast HISTORY: abnormal ct of lever r93.2 malignant neoplasm of ascending colon c18.2 dcis left TECHNIQUE: Using the torso phased array coil, axial STIR, T1 weighted in- and [id number]-sg-sthha and coronal HASTE images were obtained. Flow sensitive imaging through the portal vein was performed, as well. Then, using a 3-D GRE T1 weighted sequence, dynamic images were obtained before, during and after the administration of 19ml cc intravenous Dotarem. Comparison: None FINDINGS: Liver: There is a large, heterogeneously enhancing mass within the entire lateral segment of the left hepatic lobe and extending into the medial segment as well. This mass measures approximately 8.2 x 5.8 x 6.3 cm. This is most consistent with neoplasm, perhaps metastatic given the patient's history of colonic carcinoma. No additional hepatic lesions are seen. There is patchy hepatic fatty change throughout the right hepatic lobe. Biliary tract: The common bile duct is normal in course and caliber. No filling defect is identified within the common duct. Gallbladder: Absent Pancreatic duct: The visualized portions of the pancreatic duct are normal. Spleen: No lesion is identified. Pancreas: The pancreas enhances normally and is without focal lesions. Adrenal glands: No mass is identified Kidneys: The visualized portions of the kidneys are normal. No adenopathy is identified. There is partial, nonocclusive thrombus within the superior mesenteric vein just cephalad to its 1st branch. She had undergone liver resection with a left hepatectomy for metastatic colon cancer at April 27, 2016. She was doing well post her liver resection and then we proceeded with her surgical resection for her DCIS. I performed a left needle localization lumpectomy/partial mastectomy on July 05, 2016. The pathology demonstrated: MICROSCOPIC DIAGNOSIS Left breast mass, lumpectomy with needle localization: Focal ductal carcinoma in situ. Changes consistent with previous biopsy site. See cancer summary below. SJ:carmen 07/07/16 DUCTAL CARCINOMA IN SITU SUMMARY: Specimen - partial breast Procedure - excision with wire-guided localization Lymph node sampling ? no lymph nodes present Specimen integrity - single intact specimen Specimen size ? 15 x 9 x 4 cm Specimen laterality ? left Tumor site ? not specified Size (extent) of DCIS ? 0.3 cm in greatest dimension. See comment. 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 Architectural pattern - cribriform Nuclear grade - grade 2 (intermediate) Necrosis ? not identified Margins ? margin uninvolved by ductal carcinoma in situ. The tumor is 2 cm away from the closest anterior and posterior margins Treatment effect - no known presurgical therapy. Lymph nodes ? not submitted Distant metastasis ? not replicable Additional Pathologic Findings ? fibrocystic changes. - Focal changes consistent with previous biopsy site. Ancillary Studies from previous specimen ([id number] / RF16-72): ER ? positive (65%, strong) FL ? positive (54%, strong) Her2 sophie (IHC) ? equivocal (2+) Her2 by FISH - not performed. Microcalcifications ? present in non-neoplastic tissue. Clinical history - Please make reference to previous specimen ([id number]) left breast, stereotactic core biopsy with diagnosis of ductal carcinoma in situ. Pathologic Staging: pTis(DCIS) pNx Mx The above summary is in compliance with [employer] (CAP) Cancer Protocols Checklist and [place] Joint Committee on Cancer (AJCC), Staging Manual, 7th Ed. COMMENT A minute focus of ductal carcinoma in situ is noted adjacent to the previous biopsy site. The ductal carcinoma in situ is measured on the glass slide. The ductal carcinoma in situ in the previous breast biopsy ([id number]) measures 0.4 x 0.2 cm in greatest dimension and present in 2 out of 4 blocks. Case has been reviewed in consultation with Dr. Segovia who concurs with the above diagnosis. IDC:SARAH Napier notes the site is well healing. Post operative pain has been well controlled. The patient denies nausea. The patient`s appetite has been good. Given the size of her DCIS she was not felt to need radiation following her procedure. She is doing a self breast exam and notes no palpable abnormalities. She recently underwent follow-up mammogram on February 13, 2017. This demonstrated: IMPRESSION: PROBABLY BENIGN The grouped calcifications in the left breast are probably benign. A follow-up mammogram in 6 months is recommended to demonstrate stability. Alvarez oro/giovanny:02/13/2017 12:06:29 Cash Room Clerk: Aubrie VALDEZ)(Luis Miguel), [facility] letter sent: # Mo FU Mammogram BI-RADS: 3 Probably benign Aerologist: Giovanny Transcribe Date/Time: Feb 13 2017 11:10A Dictated by: LAVAREZ CORONADO MD This examination was interpreted and the report reviewed and electronically signed by: ALVAREZ CORONADO MD on Feb 13 2017 12:06PM ?EST The patient follow up study was found to have recurrence of her tumor at the edge of the previous resection in the liver and was felt to be a lung metastases. She is currently undergoing salvage/palliative chemotherapy. Overall she is doing well with these treatments. She had 6 month follow-up mammogram and ultrasound. This demonstrated: IMPRESSION: SUSPICIOUS FINDING - BIOPSY SHOULD BE CONSIDERED - FOLLOW-UP RECOMMENDED The 7 mm dilated duct in the left breast resembles a solid mass or a papilloma and is suspicious of malignancy. ?An ultrasound guided biopsy is recommended. Juancarlos andersen/giovanny:10/17/2017 15:09:57 Cash Room Clerk: Aubrie VALDEZ)(Luis Miguel), [facility] letter sent: Abnormal ? Mammogram BI-RADS: 4 Suspicious finding - Biopsy should be considered Ultrasound BI-RADS: 4 Suspicious finding - Biopsy should be considered Aerologist: Giovanny Transcribe Date/Time: Oct 17 2017 ?1:56P Dictated by : JUANCARLOS SNOW MD This examination was interpreted and the report reviewed and electronically signed by: JUANCARLOS SNOW MD on Oct 17 2017 ?3:09PM ?EST Results-Findings * * *Final Report* * * DATE OF EXAM: Oct 17 2017 ?2:54PM ? WRU ? [id number] ?- ?[facility] US BREAST LTD LT ?/ PROCEDURE REASON: 6 month bilateral / left breast / abnormal mammogram ?? ? * * * * Physician Interpretation * * * * ?#[id number] - [facility] DIAGNOSTIC YAN BILATERAL DIGITAL DIAGNOSTIC MAMMOGRAM WITH CAD: 10/17/2017 HISTORY: 6 Month Bilateral / Left Breast / Abnormal Mammogram. RESULT: TECHNIQUE: ?The study was acquired using full field digital technology and interpreted from soft copy. Current study was also evaluated with a Computer Aided Detection (CAD). Comparison is made to exams dated: ?02/13/2017 mammogram, 09/04/2016 mammogram - [facility], 09/06/2015 mammogram, and 09/03/2015 mammogram. There are scattered fibroglandular elements in both breasts. The left breast has post-operative findings. There are grouped pleomorphic calcifications in the left breast at 9 o'clock anterior depth. No other significant masses, calcifications, or other findings are seen in either breast. SUSPICIOUS FINDING - BIOPSY SHOULD BE CONSIDERED The grouped pleomorphic calcifications in the left breast are suspicious of malignancy. ?A stereotactic biopsy is recommended. There is no abnormality seen in the left breast to correspond with the discharge from the nipple, however, clinical correlation is recommended. #[id number] - [facility] US BREAST LTD LT ULTRASOUND OF LEFT BREAST: 10/17/2017 RESULT: Comparison is made to exams dated: ?02/13/2017 mammogram, 09/04/2016 mammogram - [facility], 09/06/2015 mammogram, and 09/03/2015 mammogram. Real-time ultrasound of the left breast was performed. There is a 7 mm dilated duct in the left breast central to the nipple in the retroareolar region. ?This dilated duct displays internal echoes. She is currently recently receiving salvage chemotherapy for her metastatic colon cancer. She seems to be relatively stable on this course of treatment. The patient and her after considerable discussion would like to have biopsies of these areas. We plan to perform the biopsy at the midpoint of her chemotherapy therapy treatments I performed a left side Stereotactic guided core biopsy for her abnormal mammogram on November 20, 2017. The pathology returned as: Fibrocystic changes, focal intraductal hyperplasia without atypia. Hyalinized nodular with clustered microcalcifications, no evidence of malignancy She now returns to schedule her left ultrasound guided excisional breast biopsy for likely intraductal papilloma, ductal dilatation at the medial aspect of the left nipple. PAST MEDICAL HISTORY Diagnosis Date - Anemia - Arthritis - Asthma - Atrial arrhythmia - Atrial fibrillation (HCC) - Carotid artery disease (HCC) - Colon cancer (HCC) - Coronary artery disease - Diabetes (HCC) - Eczema - Fibromyalgia - H/O degenerative disc disease - Hearing loss - Hyperlipidemia - Hypertension - Myocardial infarction (HCC) - Radiculopathy - Sleep apnea - Spondylolysis PAST SURGICAL HISTORY Procedure Laterality Date - APPENDECTOMY 04/1977 - BREAST BIOPSY 11/20/2017 left breast stereotactic biopsy and marker placement [facility] - BENIGN - BREAST BIOPSY W/STEREOTACTIC GUIDANCE 09/15/15 left - DCIS - CAROTID ENDARTERECTOMY Left 02/07/2013 - CATARACT EXTRACTION HX 06/2009 - CATARACT EXTRACTION HX 08/2009 - CHOLECYSTECTOMY HX 02/28/1995 - COLONOSCOP W/ OR W/O BRSH SPEC 09/08/2016 normal - clean anastomosis - 3 year follow up - HYSTERECTOMY HX 04/1977 - LAPAROSCOPIC HEMICOLECTOMY 07/28/15 - MASTECTOMY, PARTIAL Left 07/05/16 - PAST SURGICAL HISTORY OF 12/04/2013 coronary stent - PAST SURGICAL HISTORY OF 02/13/2012 double bi-pass - PAST SURGICAL HISTORY OF 1969 tongue surgery - RESEC LIVER,PART LOBECTOMY 04/27/2016 - S PORTACATH [id number] 09/11/2017 port placement [place] - TONSILLECTOMY AND ADENOIDECTOMY HX 01/1952 - TUNNEL VAD W SUB Q PORT >=5 11/02/15 port Current Outpatient Prescriptions: ucvqnopuwmGMLLG-nvhkok-hymzxcdvh (BMX 1:1:1) 1:1:1 liqd Take 10 mL by mouth every 4 hours as needed (Swish and Spit every 4 hours as needed.). Disp: 300 mL Rfl: 2 predniSONE (DELTASONE) 10 mg tablet Take 1 tablet twice the day before each chemotherapy treatment and one tablet the evening of chemotherapy. Disp: 30 tablet Rfl: 0 potassium chloride (KLOR-CON) 20 mEq packet Take 20 mEq by mouth once daily. Disp: 90 Packet Rfl: 3 rivaroxaban (XARELTO) 15 mg tablet Take 1 tablet by mouth daily with dinner. (Patient taking differently: Take by mouth daily with dinner. ) Disp: Rfl: ondansetron (ZOFRAN) 8 mg tablet Take 1 tablet by mouth every 8 hours as needed for Nausea/Vomiting. Disp: 30 tablet Rfl: 2 lidocaine-prilocaine (EMLA) cream Apply 1 application to affected area as needed. Disp: 15 g Rfl: 2 0.9 % SODIUM CHLORIDE (0.9% NACL) Access implanted vascular access device (IVAD) as needed for flush, blood draw or treatment.Flush IVAD with 10-20 mL NS every 4 weeks and PRN when IVAD not in use. Disp: 2 Syringe Rfl: 50 heparin 100 unit/mL injection Access implanted vascular access device (IVAD) as needed for flush, blood draw or treatment. Before de-accessing port, flush with 10-20ml normal saline and follow with 5 mL heparin (100 units/mL) (if no heparin allergy). De-access port on treatment completion. Disp: 50 mL Rfl: 3 ketoconazole (NIZORAL) 2 % cream Apply 1 application to affected area twice daily. Disp: Rfl: Loperamide HCl (IMODIUM A-D) 2 mg tab Take 2 mg by mouth as needed. Disp: Rfl: promethazine (PHENERGAN) 25 mg tablet Take 0.5-1 tablets by mouth every 6 hours as needed. FOR NAUSEA Disp: 30 tablet Rfl: 2 0.9% NaCl Access implanted vascular access device (IVAD) as needed for flush, blood draw or treatment.Flush IVAD with 10-20 mL NS every 4 weeks and PRN when IVAD not in use. Disp: 2 Syringe Rfl: 50 heparin 100 unit/mL syrg Access implanted vascular access device (IVAD) as needed for flush, blood draw or treatment. Before de-accessing port, flush with 10-20ml normal saline and follow with 5 mL heparin (100 units/mL) (if no heparin allergy). De-access port on treatment completion. Disp: 1 Syringe Rfl: 50 furosemide (LASIX) 20 mg tablet Take 2 tablets by mouth twice daily. Disp: Rfl: montelukast (SINGULAIR) 10 mg tablet Take 1 tablet by mouth daily at bedtime. as needed. Disp: Rfl: 0 FERREX 150 150 mg iron capsule Take 1 capsule by mouth once daily. Disp: Rfl: 0 magnesium oxide (MAG-OX) 400 mg tablet Take 400 mg by mouth twice daily. Disp: Rfl: clotrimazole-betamethasone (LOTRISONE) cream Apply 1 application to affected area twice daily. Disp: 45 g Rfl: 2 acetaminophen (TYLENOL) 500 mg tablet Take 1,000 mg by mouth as needed. Disp: Rfl: diphenhydrAMINE (BENADRYL) 25 mg tablet Take 50 mg by mouth as needed. Disp: Rfl: hydrocortisone valerate (WESTCORT) 0.2 % cream Apply 1 application to affected area three times daily as needed. Disp: Rfl: isosorbide mononitrate ER (IMDUR) 60 mg 24 hr tablet Take 60 mg by mouth once daily. Disp: Rfl: aspirin, enteric coated (ASPIRIN, ENTERIC COATED) 81 mg EC tablet Take 81 mg by mouth once daily. Disp: Rfl: metoprolol tartrate, short acting, (LOPRESSOR) 50 mg tablet Take 50 mg by mouth twice daily. Disp: Rfl: lisinopril (ZESTRIL, PRINIVIL) 10 mg tablet Take 10 mg by mouth once daily. Disp: Rfl: omeprazole (PRILOSEC) 20 mg capsule Take 20 mg by mouth once daily. Disp: Rfl: mometasone (ASMANEX TWISTHALER) 220 mcg (60 doses) aepb Inhale 1 Puff as instructed. Disp: Rfl: cholecalciferol, vitamin D3, (VITAMIN D3) 4,000 unit cap Take 1 tablet by mouth once daily. Disp: Rfl: simvastatin (ZOCOR) 40 mg tablet Take 20 mg by mouth daily at bedtime. Disp: Rfl: nitroglycerin sublingual (NITROSTAT) 0.3 mg SL tablet Dissolve 0.3 mg under the tongue every 5 minutes as needed. Disp: Rfl: albuterol HFA (PROVENTIL HFA) 90 mcg/actuation inhaler Inhale 2 Puffs as instructed every 4 hours as needed. Disp: Rfl: EPINEPHrine 0.15 mg/0.15 mL (1:1,000) auto-injector by INJECTION(UNSPECIFIED PARENTERAL ROUTES) route as needed. Disp: Rfl: loratadine (CLARITIN) 10 mg tablet Take 10 mg by mouth as needed. Disp: Rfl: triamcinolone (KENALOG) 0.025 % cream Apply 1 application to affected area twice daily as needed. Disp: Rfl: No current facility-administered medications for this visit. 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 [employer] Social History Main Topics Smoking status: Never Smoker Smokeless status: Never Used Alcohol use: No Drug use: No Sexual activity: Not Currently Partners with: Male FAMILY HISTORY: FAMILY HISTORY Problem Relation Age of Onset - Heart Mother - Diabetes Mother - Heart Father - Breast Cancer Sister 69 Also had cervix cancer at about age 60 - Breast Cancer Maternal Aunt 70 - Heart Brother [place] REVIEW OF SYMPTOMS: The review of systems data was entered by the nurse and reviewed by me Nursing Notes: Lalo Chavez LPN 12/18/2017 1:23 PM Signed REVIEW OF SYSTEMS: General: The patient NOTES fatigue, denies weight loss, denies weight gain, denies feeling hot, and denies feelings of cold. Eyes: The patient denies glaucoma, NOTES eye injury/surgery, does not wear glasses or contacts. Ear/Nose/Throat: The patient denies allergies, denies hayfever, denies ear infections, and denies bloody noses. Cardiovascular: The patient denies chest pain, denies heart disease, NOTES high blood pressure,NOTES cardiac stent, NOTES prior heart attack, NOTES irregular heart beat, NOTES high cholesterol, denies poor circulation, denies heart failure, other cardiac issues, denies claudication, denies cold feet, denies peripheral arterial stent. Respiratory: The patient NOTES tuberculosis, NOTES pneumonia, NOTES frequent cough, denies pulmonary embolism, NOTES shortness of breath, and denies coughing up blood. Gastrointestinal: The patient denies difficulty swallowing, denies acid reflux, denies ulcers, denies vomiting, denies jaundice/hepatitis, NOTES gallbladder problems, denies black or tarry stools, NOTES hemorrhoids, denies bleeding from rectum, denies diverticulitis, denies constipation, denies diarrhea, denies loss of stool control, and denies hernias. Kidney/Bladder: The patient denies kidney stones, denies urine infections, and denies bloody urine. Skin: The patient denies a history of skin cancer, denies bleeding/changing moles, and denies a history of skin rash. Neurologic: The patient denies a history of epilepsy/convulsions, denies headaches, denies head/spinal injuries, and denies stroke/TIA. Psychiatric: The patient denies psychiatric medications, denies depression, and denies voices, denies substance abuse. Endocrine: The patient denies thyroid disorders, NOTES diabetes, and denies hormonal problems. Hematologic: The patient denies a history of bruising, denies bleeding, and NOTES anemia, denies blood clots. Infections: The patient NOTES a history of measles and mumps, denies rheumatic fever, and denies sexually transmitted diseases. Musculoskeletal: The patient NOTES back pain/injury, denies back problems, denies sciatica, denies knee/foot trouble, NOTES arthritis, or denies gout. When was patient's last Mammogram screening? 2018 Last Colonoscopy: 09/12 Lalo Chavez LPN PHYSICAL EXAMINATION: General: The patient is 77 year old female, well nourished, well hydrated in no acute distress. The patient is oriented to time, place, and person. VITALS: Blood pressure 122/84, pulse 67, weight 99.3 kg (219 lb). Body mass index is 40.06 kg/(m2). HEENT: Normal cephalic, ataumatic, pupils are equally round, sclera are anicteric, mucous membranes are moist, oropharynx is clear. Neck has no masses, asymmetry or lymphadenopathy. Thyroid is unremarkable. Respiratory: Clear to auscultation and percussion. Normal respiratory excursion and pattern. Cardiac: Examination is regular rate and rhythm. Abdominal exam: Soft, nontender, with no palpable masses. No hepatosplenomegaly. No palpable hernias. Rectal exam: exam deferred Extremities: no clubbing, cyanosis or edema. No adenopathy. Breast: Visual inspection reveals no retractions, nipple inversion, or skin changes. Palpation of the right breast reveals no dominant or suspicious masses. Palpation of the left breast reveals still some bruising at the biopsy site but this is slowly resolving. Axillary exam demonstrates no suspicious masses in either the left or right axilla. There is no nipple discharge expressed from either the left or right breast. LABORATORY VALUES: As Noted RADIOLOGIC STUDIES: As Noted Intraoffice ultrasound did demonstrate the area of concern just medial to the left nipple. Assessment IMPRESSION: NIPPLE DISCHARGE - LEFT - ? , INTRADUCTAL PAPILLOMA PLAN: I plan to perform a left side needle localization biopsy/lumpectomy. The planned surgical procedure was discussed extensively with the patient. The risks, benefits, anticipated outcomes and possible complications and alternatives were discussed. My staff has also explained the procedure in understandable terms and the patient was given the option to take printed material concerning the planned procedure. The patient had the opportunity to ask questions concerning the planned procedure. The patient freely consents to the planned procedure. Anticipated Surgical Procedure/ CPT Code: left preoperative ultrasound guided needle placement -99620 EXCISIONAL BREAST BIOPSY - [id number] Anticipated Anesthetic: General Patient weight: Blood pressure 122/84, pulse 67, weight 99.3 kg (219 lb). BMI: Body mass index is 40.06 kg/(m2). Planned antibiotic: clindamycin 600mg IVPB legislative correspondent to OR SCDs needed - Yes E Learning Specialist Needed - No Diagnoses: (N64.52) Nipple discharge (primary encounter diagnosis) Return to Clinic: The patient is instructed to follow-up with me 1 week post operatively. Lc Elmore MD CNOV Observed: 12/18/2017 Status: COMPLETED Source: [place] 1:00 PM [facility] REPOSITORY Office Visit (GENSWS) QUYEN COKER ([id number]) 1940 F [facility] Date Time Provider Department 12/18/17 1:00 PM LC ELMORE During your visit today, we recorded the following information about you: Pulse Blood pressure Weight 67/minute 122/84 99.3 kg Lalo Chavez [facility] 12/18/2017 1:23 PM Signed REVIEW OF SYSTEMS: General: The patient NOTES fatigue, denies weight loss, denies weight gain, denies feeling hot, and denies feelings of cold. Eyes: The patient denies glaucoma, NOTES eye injury/surgery, does not wear glasses or contacts. Ear/Nose/Throat: The patient denies allergies, denies hayfever, denies ear infections, and denies bloody noses. Cardiovascular: The patient denies chest pain, denies heart disease, NOTES high blood pressure,NOTES cardiac stent, NOTES prior heart attack, NOTES irregular heart beat, NOTES high cholesterol, denies poor circulation, denies heart failure, other cardiac issues, denies claudication, denies cold feet, denies peripheral arterial stent. Respiratory: The patient NOTES tuberculosis, NOTES pneumonia, NOTES frequent cough, denies pulmonary embolism, NOTES shortness of breath, and denies coughing up blood. Gastrointestinal: The patient denies difficulty swallowing, denies acid reflux, denies ulcers, denies vomiting, denies jaundice/hepatitis, NOTES gallbladder problems, denies black or tarry stools, NOTES hemorrhoids, denies bleeding from rectum, denies diverticulitis, denies constipation, denies diarrhea, denies loss of stool control, and denies hernias. Kidney/Bladder: The patient denies kidney stones, denies urine infections, and denies bloody urine. Skin: The patient denies a history of skin cancer, denies bleeding/changing moles, and denies a history of skin rash. Neurologic: The patient denies a history of epilepsy/convulsions, denies headaches, denies head/spinal injuries, and denies stroke/TIA. Psychiatric: The patient denies psychiatric medications, denies depression, and denies voices, denies substance abuse. Endocrine: The patient denies thyroid disorders, NOTES diabetes, and denies hormonal problems. Hematologic: The patient denies a history of bruising, denies bleeding, and NOTES anemia, denies blood clots. Infections: The patient NOTES a history of measles and mumps, denies rheumatic fever, and denies sexually transmitted diseases. Musculoskeletal: The patient NOTES back pain/injury, denies back problems, denies sciatica, denies knee/foot trouble, NOTES arthritis, or denies gout. When was patient's last Mammogram screening? 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 She returns here for follow-up of her breast related issues. 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 Her complicated history is as follows: The patient is a 74 year old female with a complaint of rectal bleeding and anemia. The patient initially underwent upper endoscopy which demonstrated no obvious source. The patient underwent colonoscopy by Dr. Chuck Penn on July 13 which demonstrated a fungating mass at the cecum ascending colon junction. Pathology returned as invasive adenocarcinoma. The patient is being seen by me today at the request of Dr. Penn for my opinion and advice regarding right colon cancer. The patient has a history of coronary disease and carotid stenosis. She has been on Plavix which was on hold after her endoscopy and prior to her surgical procedure. Additionally, she had undergone previous left carotid endarterectomy. Patient was recently evaluated by her metal patternmaker, Dr. Sujit Maya. She had undergone coronary bypass grafting in 2011 and is status post an LAD and left circumflex stent placement in November 2013. 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 She has good left ventricular ejection fraction. It was felt she was an acceptable risk for surgical intervention and did not require further preoperative cardiac diagnostic studies. I performed a laparoscopic right hemicolectomy on July 28, 2015. The pathology demonstrated: The tumor's size was 3.0x2.6.1.0 cm. Macroscopic tumor perforation was not identified. Histologic type: adenocarcinoma Histologic Grade: Low grade Histologic features for microsatellite instability - Intratumoral lymphocytic response: Mild to moderate Peritumoral lymphocytic response: Crohn's like lymphoid response: None Tumor subtype and differentiation: Not applicable MIcroscopic tumor extension: tumor invades through muscularis propria into subserosal adipose Lymphovascular invasion: None Perineural invasion: None Surgical margins were free of disease. Lymph nodes examined: 14 Lymph nodes involved: 0 PATHOLOGIC STAGE: pT 3, pN 0, M 0 Quyen noted loose stools had been continuing for the past few days at her August 15 follow-up. She has been maintaining a low residue diet. She also notes very transient dizziness. Post operative pain has been well controlled. The patient notes nausea. The patient`s appetite has been average. She was admitted to the hospital on August 22 with further looser stools and dizziness and some dehydration. Stool cultures were obtained which demonstrated no abnormalities. She was started on probiotics and Imodium and this significantly improved her stool frequency. She notes that at this point in time, her stools remain somewhat green but are less loose than they were. Overall she states her appetite still remains fair. She also notes that she is having issues of persistent nausea. She noted that this seemed similar to this as she had had in the past and was evaluated by Dr. Penn with upper endoscopy which was apparently unremarkable. The patient has been on a 20 mg Prilosec dose for some time. She notes that her nausea symptoms improve if she takes Maalox. The patient still is complaining of episodic transient dizziness that is worse if she raises up more quickly. Additionally, the patient underwent a recent follow-up mammogram. This was read as demonstrating a 8 mm mass with microcalcifications in her left breast. It was recommended biopsy listed BI-RADS Category 4. The patient did not have ultrasound performed. She irregularly performs a self breast exam and notes overall lumpy breasts but denies any specific changes. She denies skin changes, nipple discharge, or other difficulties. She had a previous mammogram that did demonstrate some microcalcifications similar mass. I obtained a CT scan of the abdomen and pelvis. This demonstrated no intra-abdominal abnormalities and demonstrated the anastomosis to have no signs of leakage inflammation or abscess which I felt could've been concerning for her abdominal complaints. There was noted to be in an area of asymmetric contrast enhancement in the liver which seemed to go away in delayed films. There were a list of possible options for this and MRI was recommended as an option. The patient had a previous CT scan preop which demonstrated similar findings from my standpoint and intraoperatively had no abnormalities noted in this location at the liver surface. I felt it was not necessary to have an MRI. Dr. Vasquez evaluated the patient and was concerned of those findings and recommended an MRI be obtained. The patient has since seen her primary care physician. Her oral hypoglycemic medication was stopped which has both cured her dizziness symptoms and her epigastric/nausea symptoms. We also obtained ultrasound which demonstrates no specific abnormalities in her left breast I performed a left side stereotactic biopsy for her abnormal mammogram on September 15, 2014. The pathology returned as DCIS. The patient notes some resolution of the bruising since the procedure but now notes a mass that worries her at the biopsy site. 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 Nuclear Grade - 2 (intermediate). Necrosis - present, single cell necrosis. Calcifications - present. Additional findings - focal fibrocystic changes. Negative for invasive carcinoma in the submitted specimen. I plan to obtain an MRI to assess her breast for additional or more extended pathology. MRI of the breast returned as: IMPRESSION: KNOWN BIOPSY PROVEN MALIGNANCY Longitudinally oriented area of mild enhancement in the central left breast thought to be due to postbiopsy hemorrhage/inflammation. Tumor along this entire length is thought less likely but cannot be excluded. Brandee condon/giovanny:10/12/2015 12:43:57 Cash Room Clerk: [facility]issa [facility] letter sent: Category 6 MRI BI-RADS: 6 Known biopsy proven malignancy Aerologist: VIDYA Transcribe Date/Time: Oct 12 2015 12:43P Dictated by : BRANDEE AYALA MD This examination was interpreted and the report reviewed and electronically signed by: BRANDEE AYALA MD On Oct 12 2015 12:43PM Results-Findings * * *Final Report* * * DATE OF EXAM: Oct 11 2015 9:45AM [facility] [id number] - MRI BREAST YAN WWO / PROCEDURE REASON: DCIS (D05.10), ABNORMAL MAMMOGRAM OF LEFT BREAST (R92.8) * * * * Physician Interpretation * * * * #[id number] - MRI BREAST YAN WWO BREAST MRI OF BOTH BREASTS : 10/11/2015 HISTORY: Dcis (D05.10), Abnormal Mammogram Of Left Breast (R92.8). RESULT: No prior exams were available for comparison. Interpretation of this MRI was correlated with available mammograms. Gadolinium contrast calibrated to patient weight was injected. Axial T1, T2, pre and post contrast T1, and coronal images were obtained with a dedicated breast coil. The breasts are mostly fatty bilaterally. No mass, architectural distortion or abnormal enhancement is seen in the right breast. In the mid central right breast, centered just above the nipple is a longitudinal area of mild increased progressive enhancement. This is in the vicinity of recent biopsy. There is susceptibility artifact. However, the length of abnormal enhancement is much greater than the targeted lesion measuring approximately 4 cm in craniocaudal dimension. Maximal AP dimension is approximately 1.7 cm and maximal transverse dimension 1.3 cm. This abnormal enhancement could be biopsy related, perhaps representing postbiopsy hemorrhage/inflammation. No other areas of abnormal enhancement or architectural distortion are seen. There are no abnormalities seen in the axillary nodes region or infraclavicular nodes. The patient's abdominal MRI returned as: IMPRESSION: Large left hepatic lobe lesion, neoplastic in appearance and likely metastatic from the patient's known colonic CA. Partial SMV thrombus. COMMUNICATION: Communicated with: SUJIT Hernandez 10/13/2015 12:20 PM. Aerologist: VIDYA Transcribe Date/Time: Oct 13 2015 12:26P Dictated by : BRANDEE AYALA MD This examination was interpreted and the report reviewed and electronically signed by: BRANDEE AYALA MD On Oct 13 2015 12:26PM Results-Findings * * *Final Report* * * DATE OF EXAM: Oct 13 2015 9:35AM [facility] [id number] - MRI ABDOMEN [facility] CONTRAST / PROCEDURE REASON: abnormal ct of lever r93.2 malignant neoplasm of ascending colon c18.2 dcia lef * * * * Physician Interpretation * * * * RESULT: MRI of the abdomen without and with intravenous contrast HISTORY: abnormal ct of lever r93.2 malignant neoplasm of ascending colon c18.2 dcis left TECHNIQUE: Using the torso phased array coil, axial STIR, T1 weighted in- and [id number] and coronal HASTE images were obtained. Flow sensitive imaging through the portal vein was performed, as well. Then, using a 3-D GRE T1 weighted sequence, dynamic images were obtained before, during and after the administration of 19ml cc intravenous Dotarem. Comparison: None FINDINGS: Liver: There is a large, heterogeneously enhancing mass within the entire lateral segment of the left hepatic lobe and extending into the medial segment as well. This mass measures approximately 8.2 x 5.8 x 6.3 cm. This is most consistent with neoplasm, perhaps metastatic given the patient's history of colonic carcinoma. No additional hepatic lesions are seen. There is patchy hepatic fatty change throughout the right hepatic lobe. Biliary tract: The common bile duct is normal in course and caliber. No filling defect is identified within the common duct. Gallbladder: Absent Pancreatic duct: The visualized portions of the pancreatic duct are normal. Spleen: No lesion is identified. Pancreas: The pancreas enhances normally and is without focal lesions. Adrenal glands: No mass is identified Kidneys: The visualized portions of the kidneys are normal. No adenopathy is identified. There is partial, nonocclusive thrombus within the superior mesenteric vein just cephalad to its 1st branch. She had undergone liver resection with a left hepatectomy for metastatic colon cancer at April 27, 2016. She was doing well post her liver resection and then we proceeded with her surgical resection for her DCIS. I performed a left needle localization lumpectomy/partial mastectomy on July 05, 2016. The pathology demonstrated: MICROSCOPIC DIAGNOSIS Left breast mass, lumpectomy with needle localization: Focal ductal carcinoma in situ. Changes consistent with previous biopsy site. See cancer summary below. SJ:carmen 07/07/16 DUCTAL CARCINOMA IN SITU SUMMARY: Specimen - partial breast Procedure - excision with wire-guided localization Lymph node sampling ? no lymph nodes present Specimen integrity - single intact specimen Specimen size ? 15 x 9 x 4 cm Specimen laterality ? left Tumor site ? not specified Size (extent) of DCIS ? 0.3 cm in greatest dimension. See comment. 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 Architectural pattern - cribriform Nuclear grade - grade 2 (intermediate) Necrosis ? not identified Margins ? margin uninvolved by ductal carcinoma in situ. The tumor is 2 cm away from the closest anterior and posterior margins Treatment effect - no known presurgical therapy. Lymph nodes ? not submitted Distant metastasis ? not replicable Additional Pathologic Findings ? fibrocystic changes. - Focal changes consistent with previous biopsy site. Ancillary Studies from previous specimen ([id number] / [id number]): ER ? positive (65%, strong) FL ? positive (54%, strong) Her2 sophie (IHC) ? equivocal (2+) Her2 by FISH - not performed. Microcalcifications ? present in non-neoplastic tissue. Clinical history - Please make reference to previous specimen ([id number]) left breast, stereotactic core biopsy with diagnosis of ductal carcinoma in situ. Pathologic Staging: pTis(DCIS) pNx Mx The above summary is in compliance with [employer] (CAP) Cancer Protocols Checklist and [place] Joint Committee on Cancer (AJCC), Staging Manual, 7th Ed. COMMENT A minute focus of ductal carcinoma in situ is noted adjacent to the previous biopsy site. The ductal carcinoma in situ is measured on the glass slide. The ductal carcinoma in situ in the previous breast biopsy ([id number]) measures 0.4 x 0.2 cm in greatest dimension and present in 2 out of 4 blocks. Case has been reviewed in consultation with Dr. Segovia who concurs with the above diagnosis. IDC:SARAH Napier notes the site is well healing. Post operative pain has been well controlled. The patient denies nausea. The patient`s appetite has been good. Given the size of her DCIS she was not felt to need radiation following her procedure. She is doing a self breast exam and notes no palpable abnormalities. She recently underwent follow-up mammogram on February 13, 2017. This demonstrated: IMPRESSION: PROBABLY BENIGN The grouped calcifications in the left breast are probably benign. A follow-up mammogram in 6 months is recommended to demonstrate stability. Alvarez oro/giovanny:02/13/2017 12:06:29 Cash Room Clerk: Aubrie VALDEZ)(Luis Miguel), [facility] letter sent: # Mo FU Mammogram BI-RADS: 3 Probably benign Aerologist: Giovanny Transcribe Date/Time: Feb 13 2017 11:10A Dictated by: ALVAREZ CORONADO MD This examination was interpreted and the report reviewed and electronically signed by: ALVAREZ CORONADO MD on Feb 13 2017 12:06PM ?EST The patient follow up study was found to have recurrence of her tumor at the edge of the previous resection in the liver and was felt to be a lung metastases. She is currently undergoing salvage/palliative chemotherapy. Overall she is doing well with these treatments. She had 6 month follow-up mammogram and ultrasound. This demonstrated: IMPRESSION: SUSPICIOUS FINDING - BIOPSY SHOULD BE CONSIDERED - FOLLOW-UP RECOMMENDED The 7 mm dilated duct in the left breast resembles a solid mass or a papilloma and is suspicious of malignancy. ?An ultrasound guided biopsy is recommended. Juancarlos adnersen/giovanny:10/17/2017 15:09:57 Cash Room Clerk: Aubrie VALDEZ)(M), [facility] letter sent: Abnormal ? Mammogram BI-RADS: 4 Suspicious finding - Biopsy should be considered Ultrasound BI-RADS: 4 Suspicious finding - Biopsy should be considered Aerologist: Giovanny Transcribe Date/Time: Oct 17 2017 ?1:56P Dictated by : JUANCARLOS SNOW MD This examination was interpreted and the report reviewed and electronically signed by: JUANCARLOS SNOW MD on Oct 17 2017 ?3:09PM ?EST Results-Findings * * *Final Report* * * DATE OF EXAM: Oct 17 2017 ?2:54PM ? WRU ? [id number] ?- ?[facility] US BREAST LTD LT ?/ PROCEDURE REASON: 6 month bilateral / left breast / abnormal mammogram ?? ? * * * * Physician Interpretation * * * * ?#[id number] - [facility] DIAGNOSTIC YAN BILATERAL DIGITAL DIAGNOSTIC MAMMOGRAM WITH CAD: 10/17/2017 HISTORY: 6 Month Bilateral / Left Breast / Abnormal Mammogram. RESULT: TECHNIQUE: ?The study was acquired using full field digital technology and interpreted from soft copy. Current study was also evaluated with a Computer Aided Detection (CAD). Comparison is made to exams dated: ?02/13/2017 mammogram, 09/04/2016 mammogram - [facility], 09/06/2015 mammogram, and 09/03/2015 mammogram. There are scattered fibroglandular elements in both breasts. The left breast has post-operative findings. There are grouped pleomorphic calcifications in the left breast at 9 o'clock anterior depth. No other significant masses, calcifications, or other findings are seen in either breast. SUSPICIOUS FINDING - BIOPSY SHOULD BE CONSIDERED The grouped pleomorphic calcifications in the left breast are suspicious of malignancy. ?A stereotactic biopsy is recommended. There is no abnormality seen in the left breast to correspond with the discharge from the nipple, however, clinical correlation is recommended. #[id number] - [facility] BREAST LTD LT ULTRASOUND OF LEFT BREAST: 10/17/2017 RESULT: Comparison is made to exams dated: ?02/13/2017 mammogram, 09/04/2016 mammogram - [facility], 09/06/2015 mammogram, and 09/03/2015 mammogram. Real-time ultrasound of the left breast was performed. There is a 7 mm dilated duct in the left breast central to the nipple in the retroareolar region. ?This dilated duct displays internal echoes. She is currently recently receiving salvage chemotherapy for her metastatic colon cancer. She seems to be relatively stable on this course of treatment. The patient and her after considerable discussion would like to have biopsies of these areas. We plan to perform the biopsy at the midpoint of her chemotherapy therapy treatments I performed a left side Stereotactic guided core biopsy for her abnormal mammogram on November 20, 2017. The pathology returned as: Fibrocystic changes, focal intraductal hyperplasia without atypia. Hyalinized nodular with clustered microcalcifications, no evidence of malignancy She now returns to schedule her left ultrasound guided excisional breast biopsy for likely intraductal papilloma, ductal dilatation at the medial aspect of the left nipple. PAST MEDICAL HISTORY Diagnosis Date - Anemia - Arthritis - Asthma - Atrial arrhythmia - Atrial fibrillation (HCC) - Carotid artery disease (HCC) - Colon cancer (HCC) - Coronary artery disease - Diabetes (HCC) - Eczema - Fibromyalgia - H/O degenerative disc disease - Hearing loss - Hyperlipidemia - Hypertension - Myocardial infarction (HCC) - Radiculopathy - Sleep apnea - Spondylolysis PAST SURGICAL HISTORY Procedure Laterality Date - APPENDECTOMY 04/1977 - BREAST BIOPSY 11/20/2017 left breast stereotactic biopsy and marker placement [facility] - BENIGN - BREAST BIOPSY W/STEREOTACTIC GUIDANCE 09/15/15 left - DCIS - CAROTID ENDARTERECTOMY Left 02/07/2013 - CATARACT EXTRACTION HX 06/2009 - CATARACT EXTRACTION HX 08/2009 - CHOLECYSTECTOMY HX 02/28/1995 - COLONOSCOP W/ OR W/O BRSH SPEC 09/08/2016 normal - clean anastomosis - 3 year follow up - HYSTERECTOMY HX 04/1977 - LAPAROSCOPIC HEMICOLECTOMY 07/28/15 - MASTECTOMY, PARTIAL Left 07/05/16 - PAST SURGICAL HISTORY OF 12/04/2013 coronary stent - PAST SURGICAL HISTORY OF 02/13/2012 double bi-pass - PAST SURGICAL HISTORY OF 1969 tongue surgery - RESEC LIVER,PART LOBECTOMY 04/27/2016 - S PORTACATH [id number] 09/11/2017 port placement [place] - TONSILLECTOMY AND ADENOIDECTOMY HX 01/1952 - TUNNEL VAD W SUB Q PORT ANDgt;=5 11/02/15 port Current Outpatient Prescriptions: [id number] (BMX 1:1:1) 1:1:1 liqd Take 10 mL by mouth every 4 hours as needed (Swish and Spit every 4 hours as needed.). Disp: 300 mL Rfl: 2 predniSONE (DELTASONE) 10 mg tablet Take 1 tablet twice the day before each chemotherapy treatment and one tablet the evening of chemotherapy. Disp: 30 tablet Rfl: 0 potassium chloride (KLOR-CON) 20 mEq packet Take 20 mEq by mouth once daily. Disp: 90 Packet Rfl: 3 rivaroxaban (XARELTO) 15 mg tablet Take 1 tablet by mouth daily with dinner. (Patient taking differently: Take by mouth daily with dinner. ) Disp: Rfl: ondansetron (ZOFRAN) 8 mg tablet Take 1 tablet by mouth every 8 hours as needed for Nausea/Vomiting. Disp: 30 tablet Rfl: 2 lidocaine-prilocaine (EMLA) cream Apply 1 application to affected area as needed. Disp: 15 g Rfl: 2 0.9 % SODIUM CHLORIDE (0.9% NACL) Access implanted vascular access device (IVAD) as needed for flush, blood draw or treatment.Flush IVAD with 10-20 mL NS every 4 weeks and PRN when IVAD not in use. Disp: 2 Syringe Rfl: 50 heparin 100 unit/mL injection Access implanted vascular access device (IVAD) as needed for flush, blood draw or treatment. Before de-accessing port, flush with 10-20ml normal saline and follow with 5 mL heparin (100 units/mL) (if no heparin allergy). De-access port on treatment completion. Disp: 50 mL Rfl: 3 ketoconazole (NIZORAL) 2 % cream Apply 1 application to affected area twice daily. Disp: Rfl: Loperamide HCl (IMODIUM A-D) 2 mg tab Take 2 mg by mouth as needed. Disp: Rfl: promethazine (PHENERGAN) 25 mg tablet Take 0.5-1 tablets by mouth every 6 hours as needed. FOR NAUSEA Disp: 30 tablet Rfl: 2 0.9% NaCl Access implanted vascular access device (IVAD) as needed for flush, blood draw or treatment.Flush IVAD with 10-20 mL NS every 4 weeks and PRN when IVAD not in use. Disp: 2 Syringe Rfl: 50 heparin 100 unit/mL syrg Access implanted vascular access device (IVAD) as needed for flush, blood draw or treatment. Before de-accessing port, flush with 10-20ml normal saline and follow with 5 mL heparin (100 units/mL) (if no heparin allergy). De-access port on treatment completion. Disp: 1 Syringe Rfl: 50 furosemide (LASIX) 20 mg tablet Take 2 tablets by mouth twice daily. Disp: Rfl: montelukast (SINGULAIR) 10 mg tablet Take 1 tablet by mouth daily at bedtime. as needed. Disp: Rfl: 0 FERREX 150 150 mg iron capsule Take 1 capsule by mouth once daily. Disp: Rfl: 0 magnesium oxide (MAG-OX) 400 mg tablet Take 400 mg by mouth twice daily. Disp: Rfl: clotrimazole-betamethasone (LOTRISONE) cream Apply 1 application to affected area twice daily. Disp: 45 g Rfl: 2 acetaminophen (TYLENOL) 500 mg tablet Take 1,000 mg by mouth as needed. Disp: Rfl: diphenhydrAMINE (BENADRYL) 25 mg tablet Take 50 mg by mouth as needed. Disp: Rfl: hydrocortisone valerate (WESTCORT) 0.2 % cream Apply 1 application to affected area three times daily as needed. Disp: Rfl: isosorbide mononitrate ER (IMDUR) 60 mg 24 hr tablet Take 60 mg by mouth once daily. Disp: Rfl: aspirin, enteric coated (ASPIRIN, ENTERIC COATED) 81 mg EC tablet Take 81 mg by mouth once daily. Disp: Rfl: metoprolol tartrate, short acting, (LOPRESSOR) 50 mg tablet Take 50 mg by mouth twice daily. Disp: Rfl: lisinopril (ZESTRIL, PRINIVIL) 10 mg tablet Take 10 mg by mouth once daily. Disp: Rfl: omeprazole (PRILOSEC) 20 mg capsule Take 20 mg by mouth once daily. Disp: Rfl: mometasone (ASMANEX TWISTHALER) 220 mcg (60 doses) aepb Inhale 1 Puff as instructed. Disp: Rfl: cholecalciferol, vitamin D3, (VITAMIN D3) 4,000 unit cap Take 1 tablet by mouth once daily. Disp: Rfl: simvastatin (ZOCOR) 40 mg tablet Take 20 mg by mouth daily at bedtime. Disp: Rfl: nitroglycerin sublingual (NITROSTAT) 0.3 mg SL tablet Dissolve 0.3 mg under the tongue every 5 minutes as needed. Disp: Rfl: albuterol HFA (PROVENTIL HFA) 90 mcg/actuation inhaler Inhale 2 Puffs as instructed every 4 hours as needed. Disp: Rfl: EPINEPHrine 0.15 mg/0.15 mL (1:1,000) auto-injector by INJECTION(UNSPECIFIED PARENTERAL ROUTES) route as needed. Disp: Rfl: loratadine (CLARITIN) 10 mg tablet Take 10 mg by mouth as needed. Disp: Rfl: triamcinolone (KENALOG) 0.025 % cream Apply 1 application to affected area twice daily as needed. Disp: Rfl: No current facility-administered medications for this visit. 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 [employer] Social History Main Topics Smoking status: Never Smoker Smokeless status: Never Used Alcohol use: No Drug use: No Sexual activity: Not Currently Partners with: Male FAMILY HISTORY: FAMILY HISTORY Problem Relation Age of Onset - Heart Mother - Diabetes Mother - Heart Father - Breast Cancer Sister 69 Also had cervix cancer at about age 60 - Breast Cancer Maternal Aunt 70 - Heart Brother [place] REVIEW OF SYMPTOMS: The review of systems data was entered by the nurse and reviewed by me Nursing Notes: Lalo Chavez LPN 12/18/2017 1:23 PM Signed REVIEW OF SYSTEMS: General: The patient NOTES fatigue, denies weight loss, denies weight gain, denies feeling hot, and denies feelings of cold. Eyes: The patient denies glaucoma, NOTES eye injury/surgery, does not wear glasses or contacts. Ear/Nose/Throat: The patient denies allergies, denies hayfever, denies ear infections, and denies bloody noses. Cardiovascular: The patient denies chest pain, denies heart disease, NOTES high blood pressure,NOTES cardiac stent, NOTES prior heart attack, NOTES irregular heart beat, NOTES high cholesterol, denies poor circulation, denies heart failure, other cardiac issues, denies claudication, denies cold feet, denies peripheral arterial stent. Respiratory: The patient NOTES tuberculosis, NOTES pneumonia, NOTES frequent cough, denies pulmonary embolism, NOTES shortness of breath, and denies coughing up blood. Gastrointestinal: The patient denies difficulty swallowing, denies acid reflux, denies ulcers, denies vomiting, denies jaundice/hepatitis, NOTES gallbladder problems, denies black or tarry stools, NOTES hemorrhoids, denies bleeding from rectum, denies diverticulitis, denies constipation, denies diarrhea, denies loss of stool control, and denies hernias. Kidney/Bladder: The patient denies kidney stones, denies urine infections, and denies bloody urine. Skin: The patient denies a history of skin cancer, denies bleeding/changing moles, and denies a history of skin rash. Neurologic: The patient denies a history of epilepsy/convulsions, denies headaches, denies head/spinal injuries, and denies stroke/TIA. Psychiatric: The patient denies psychiatric medications, denies depression, and denies voices, denies substance abuse. Endocrine: The patient denies thyroid disorders, NOTES diabetes, and denies hormonal problems. Hematologic: The patient denies a history of bruising, denies bleeding, and NOTES anemia, denies blood clots. Infections: The patient NOTES a history of measles and mumps, denies rheumatic fever, and denies sexually transmitted diseases. Musculoskeletal: The patient NOTES back pain/injury, denies back problems, denies sciatica, denies knee/foot trouble, NOTES arthritis, or denies gout. When was patient's last Mammogram screening? 2018 Last Colonoscopy: 09/12 Lalo Chavez LPN PHYSICAL EXAMINATION: General: The patient is 77 year old female, well nourished, well hydrated in no acute distress. The patient is oriented to time, place, and person. VITALS: Blood pressure 122/84, pulse 67, weight 99.3 kg (219 lb). Body mass index is 40.06 kg/(m2). HEENT: Normal cephalic, ataumatic, pupils are equally round, sclera are anicteric, mucous membranes are moist, oropharynx is clear. Neck has no masses, asymmetry or lymphadenopathy. Thyroid is unremarkable. Respiratory: Clear to auscultation and percussion. Normal respiratory excursion and pattern. Cardiac: Examination is regular rate and rhythm. Abdominal exam: Soft, nontender, with no palpable masses. No hepatosplenomegaly. No palpable hernias. Rectal exam: exam deferred Extremities: no clubbing, cyanosis or edema. No adenopathy. Breast: Visual inspection reveals no retractions, nipple inversion, or skin changes. Palpation of the right breast reveals no dominant or suspicious masses. Palpation of the left breast reveals still some bruising at the biopsy site but this is slowly resolving. Axillary exam demonstrates no suspicious masses in either the left or right axilla. There is no nipple discharge expressed from either the left or right breast. LABORATORY VALUES: As Noted RADIOLOGIC STUDIES: As Noted Intraoffice ultrasound did demonstrate the area of concern just medial to the left nipple. Assessment IMPRESSION: NIPPLE DISCHARGE - LEFT - ? , INTRADUCTAL PAPILLOMA PLAN: I plan to perform a left side needle localization biopsy/lumpectomy. The planned surgical procedure was discussed extensively with the patient. The risks, benefits, anticipated outcomes and possible complications and alternatives were discussed. My staff has also explained the procedure in understandable terms and the patient was given the option to take printed material concerning the planned procedure. The patient had the opportunity to ask questions concerning the planned procedure. The patient freely consents to the planned procedure. Anticipated Surgical Procedure/ CPT Code: left preoperative ultrasound guided needle placement -43552 EXCISIONAL BREAST BIOPSY - 35660-064 Anticipated Anesthetic: General Patient weight: Blood pressure 122/84, pulse 67, weight 99.3 kg (219 lb). BMI: Body mass index is 40.06 kg/(m2). Planned antibiotic: clindamycin 600mg IVPB legislative correspondent to OR SCDs needed - Yes E Learning Specialist Needed - No Diagnoses: (N64.52) Nipple discharge (primary encounter diagnosis) Return to Clinic: The patient is instructed to follow-up with me 1 week post operatively. Lc Elmore MD Referring Provider: ALVAREZ MCCOY [[id number]] Allergies As of Date: 12/18/2017 Noted Allergy Reaction CORGARD (NADOLOL) 07/21/2015 12 - Shortness of Breath PENN 07/21/2015 12 - Shortness of Breath MORPHINE 07/21/2015 12 - Shortness of Breath Comments: Pt says she can tolerate oxycodone. PENICILLINS 07/21/2015 12 - Shortness of Breath PERFUMES 12/07/2017 12 - Shortness of Breath PRAVACHOL (PRAVASTATIN) 07/21/2015 12 - Shortness of Breath SULFITE 07/21/2015 12 - Shortness of Breath Comments: Sulfites in food. Verified by refrigerator tester. ZOCOR (SIMVASTATIN) 07/21/2015 12 - Shortness of Breath Comments: Pt reports allergy to brand Zocor, tolerates generic. Date Reviewed: 12/18/2017 Reviewed by: Lc Elmore - Fully Assessed Reason for Visit: Established Patient [175] Cmt: f/u Breast Primary Visit Diagnosis:Nipple discharge [N64.52] Prescriptions as of 12/18/2017 Sig: [id number]* Take 10 mL by mouth every 4 h* PREDNISONE 10 MG TABLET Take 1 tablet twice the day b* POTASSIUM CHLORIDE 20 MEQ ORA* Take 20 mEq by mouth once wyatt* RIVAROXABAN 15 MG TABLET Take 1 tablet by mouth daily * Patient taking differently: Take by mouth daily with dinn* ONDANSETRON HCL 8 MG TABLET Take 1 tablet by mouth every * LIDOCAINE-PRILOCAINE 2.5 %-2.* Apply 1 application to affect* SODIUM CHLORIDE 0.9% FLUSH Access implanted vascular acc* HEPARIN, PORCINE (PF) 100 UNI* Access implanted vascular acc* KETOCONAZOLE 2 % TOPICAL CREAM Apply 1 application to affect* LOPERAMIDE 2 MG TABLET Take 2 mg by mouth as needed. PROMETHAZINE 25 MG TABLET Take 0.5-1 tablets by mouth e* SODIUM CHLORIDE 0.9% FLUSH Access implanted vascular acc* HEPARIN LOCK FLUSH (PORCINE) * Access implanted vascular acc* FUROSEMIDE 20 MG TABLET Take 2 tablets by mouth twice* MONTELUKAST 10 MG TABLET Take 1 tablet by mouth daily * FERREX 150 MG IRON CAPSULE Take 1 capsule by mouth once * MAGNESIUM OXIDE 400 MG TABLET Take 400 mg by mouth twice da* CLOTRIMAZOLE-BETAMETHASONE 1 * Apply 1 application to affect* ACETAMINOPHEN 500 MG TABLET Take 1,000 mg by mouth as nee* DIPHENHYDRAMINE 25 MG TABLET Take 50 mg by mouth as needed. HYDROCORTISONE VALERATE 0.2 %* Apply 1 application to affect* ISOSORBIDE MONONITRATE ER 60 * Take 60 mg by mouth once wilman* ASPIRIN 81 MG TABLET,DELAYED * Take 81 mg by mouth once wilman* METOPROLOL TARTRATE 50 MG TAB* Take 50 mg by mouth twice wyatt* LISINOPRIL 10 MG TABLET Take 10 mg by mouth once wilman* OMEPRAZOLE 20 MG CAPSULE,MELODY* Take 20 mg by mouth once wilman* MOMETASONE 220 MCG (60 DOSES)* Inhale 1 Puff as instructed. CHOLECALCIFEROL (VITAMIN D3) * Take 1 tablet by mouth once d* SIMVASTATIN 40 MG TABLET Take 20 mg by mouth daily at * NITROGLYCERIN 0.3 MG SUBLINGU* Dissolve 0.3 mg under the ton* ALBUTEROL SULFATE HFA 90 MCG/* Inhale 2 Puffs as instructed * EPINEPHRINE 0.15 MG/0.15 ML I* by INJECTION(UNSPECIFIED PARE* LORATADINE 10 MG TABLET Take 10 mg by mouth as needed. 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] INVALID FOR* Abnormal magnetic resonance imaging of liver [R*INVALID FOR* Liver metastasis (HCC) [C78.7] INVALID FOR* Diabetes (HCC) [E11.9] INVALID FOR* Hearing loss [H91.90] INVALID FOR* Hypertension [I10] INVALID FOR* Hyperlipidemia [E78.5] INVALID FOR* Carotid artery disease (HCC) [I77.9] INVALID FOR* Coronary artery disease [I25.10] INVALID FOR* Asthma [J45.909] INVALID FOR* Sleep apnea [G47.30] INVALID FOR* Arthritis [M19.90] INVALID FOR* Fibromyalgia [M79.7] INVALID FOR* Atrial arrhythmia [I49.8] INVALID FOR* H/O degenerative disc disease [Z87.39] INVALID FOR* Spondylolysis [M43.00] INVALID FOR* Radiculopathy [M54.10] INVALID FOR* Eczema [L30.9] INVALID FOR* Anemia [D64.9] INVALID FOR* 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*INVALID FOR* Colon cancer (HCC) [C18.9] Visit Notes: >> Lalo Chavez LPN [facility] Dec 18, 2017 1:15 PM Status: Signed REVIEW OF SYSTEMS: General: The patient NOTES fatigue, denies weight loss, denies weight gain, denies feeling hot, and denies feelings of cold. Eyes: The patient denies glaucoma, NOTES eye injury/surgery, does not wear glasses or contacts. Ear/Nose/Throat: The patient denies allergies, denies hayfever, denies ear infections, and denies bloody noses. Cardiovascular: The patient denies chest pain, denies heart disease, NOTES high blood pressure,NOTES cardiac stent, NOTES prior heart attack, NOTES irregular heart beat, NOTES high cholesterol, denies poor circulation, denies heart failure, other cardiac issues, denies claudication, denies cold feet, denies peripheral arterial stent. Respiratory: The patient NOTES tuberculosis, NOTES pneumonia, NOTES frequent cough, denies pulmonary embolism, NOTES shortness of breath, and denies coughing up blood. Gastrointestinal: The patient denies difficulty swallowing, denies acid reflux, denies ulcers, denies vomiting, denies jaundice/hepatitis, NOTES gallbladder problems, denies black or tarry stools, NOTES hemorrhoids, denies bleeding from rectum, denies diverticulitis, denies constipation, denies diarrhea, denies loss of stool control, and denies hernias. Kidney/Bladder: The patient denies kidney stones, denies urine infections, and denies bloody urine. Skin: The patient denies a history of skin cancer, denies bleeding/changing moles, and denies a history of skin rash. Neurologic: The patient denies a history of epilepsy/convulsions, denies headaches, denies head/spinal injuries, and denies stroke/TIA. Psychiatric: The patient denies psychiatric medications, denies depression, and denies voices, denies substance abuse. Endocrine: The patient denies thyroid disorders, NOTES diabetes, and denies hormonal problems. Hematologic: The patient denies a history of bruising, denies bleeding, and NOTES anemia, denies blood clots. Infections: The patient NOTES a history of measles and mumps, denies rheumatic fever, and denies sexually transmitted diseases. Musculoskeletal: The patient NOTES back pain/injury, denies back problems, denies sciatica, denies knee/foot trouble, NOTES arthritis, or denies gout. When was patient's last Mammogram screening? 2018 Last Colonoscopy: 09/12 Lalo Chavez UX MANAGER Letter Text NURSE'S SIGNATURE DOCTOR'S SIGNATURE TIME TIME DATE December 18, 2017 [facility] DATE December 18, 2017 Orders verified by readback: PRE-ADMISSION TESTING PHYSICIAN'S ORDER SHEET PREOPERATIVE ORDERS: X ANTIBIOTIC: _clindamycin 600mg IVPB legislative correspondent to OR__ aware of penicillin allergy ok to administer X SCD'S __ PREP LOCATION: ___left breast_ __ PAINT WITH BETADINE/CHLORAHEXIDINE PREP PRE-ADMISSION TESTING PHYSICIAN'S ORDER SHEET 09083 CR001 REV 3.08 ANESTHESIA: __ Surgeon has notified anesthesia. Date/Time Doctor OR __ Anesthesia not yet notified of consult by surgeon. Check area of concern. System of concern: __Cardiac __Pulmonary __Neuro __ Airway __Allergies __Other __ Anesthesia to see patient at PAT appointment. (PAT appt must be between 1-3 pm) LAB ORDERS: X Labs done at [facility] (Copies enclosed for [facility]) __ Duplicate order __ No Labs ordered ___ CBC ___ CBC/Diff ___ Basic Metabolic Profile (BUN, Lytes, Glu, Cre, Calcium) __ Glucose __ Creatinine __ BUN __ Lytes __ Protime- Dx code: __ PTT - Dx code: __ Urinalysis __ Urinalysis (complete) __ Liver Profile __ Lipid Profile __ Alk Phosphatase __ Bilirubin __ Amylase/Lipase __ Magnesium __ Phosphorous __ PSA - Dx code: __ CEA - Dx code: __ Urine __ Serum (Age 11-52 years old unless sterilization or pt refuses) X Screen for MRSA (PCR) if guidelines met Other: BLOOD BANK: __ Type AND Screen __ Type AND Cross (RC) units __ Autologous units __ Fresh Frozen Plasma units __ Platelets units ANCILLARY DEPTS: __EKG-MD to read: __PA/Lat CXR Reason for exam: __ Incentive Spirometer __ CARPET INSPECTOR Other: Patient has: Pacemaker ICD Woolen Suiting Shrinker name AND phone number: Pacer/ICD rep notified by nurse: X CHG product: Aplicare or cloths Dispense CHG product+Instructions if surgical site below neck Additional Orders: PAT Comment: Anesthesia notified on about: TEDS / KNEE HIGH TEDS / THIGH HIGH Faxed to Pharmacy: __ Vancomycin 1000 mg IV X 1 dose preoperatively if history of MRSA or positive MRSA screening (Fax to Rx) Admission Status: X SDC Outpatient SDC Overnight (23 hr or less) Admit Date: PAT Surgery Allergies:. Corgard [Nadolol]; Penn; Morphine; Penicillins; Perfumes; Pravachol [Pravastatin]; Sulfite; Zocor [Simvastatin] Patient's Name: Jose Coker Patient's Birthdate: 1940 Diagnosis: (N64.52) Nipple discharge (primary encounter diagnosis) [facility] Surgery / Procedure: Surgeon / Physician: Lc Elmore MD My doctor and I talked about the recommended surgery/procedure, the reasons it is being recommended, and what it generally is expected to do. We talked about major risks or complications that could occur. We talked about options other than the recommended surgery/procedure (including no treatment) and the benefits and risks of each option. I received and understand information describing the surgery or procedure, its potential risks and complications. I know surgery/medicine is not an exact science. No doctor, nurse or anyone from [facility] promised or guaranteed the success or clinical outcome of the surgery/procedure, or that a risk or complication could not occur. I know every surgery/procedure has risks, including the risk of anesthesia, the risk of unplanned injury, the risk of infection and the risk of failure. I know that not every possible risk could be covered in the written materials or in talking with the doctor. Before signing this Consent, I had an opportunity to discuss the recommended surgery/procedure, other options, and risks. I am satisfied with the answers to all of my questions. I understand about risks and knowingly accept them. If you are (or believe you may be ), tell your doctor or nurse before you sign this Consent. Your doctor will discuss with you if there are potential risks to your unborn child. Your consent will be for yourself and for the unborn child. It is the Hospital's policy to require that a responsible adult drive you directly home when you leave the Hospital. By signing, you accept and agree with this policy. By signing, I voluntarily and knowingly give my informed consent: O To have the doctor perform the recommended surgery/procedure. O To have such anesthetics (including moderate sedation) that are necessary and advisable. O To have the doctor perform additional, medically necessary surgery/procedures to treat any unforeseen or newly-discovered condition that occurs during surgery/the procedure, which needs prompt attention. O To examine, record and dispose of any tissue or body parts that are removed. O To allow photographs that will be used strictly for documenting my medical condition and treatment, which will be made a part of my confidential medical record. Check, if applicable: - To give me blood or blood products during surgery/procedure and during my hospital stay, as medically necessary. The risks, benefits, and alternatives to transfusions have been discussed with me and all my questions have been answered. - To not give me blood or blood products. I fully understand that this may adversely affect my medical management and may result in my . Alternatives to blood/blood products have been discussed with me. I read this Form, or had it read to me. I understand what it says. Patient or Responsible Person Relationship to Patient Witness to Signature Only Reason Patient Does Not Sign -- Date and Time signed Physician's signature [id number] Rev 03/02 Informed Consent Page 1 of 2 [facility] Informed Consent Surgery / Procedure: left preoperative ultrasound guided needle placement -83129 EXCISIONAL BREAST BIOPSY - [id number] Surgeon / Physician: Lc Elmore MD My doctor and I talked about the recommended surgery / procedure, the reasons it is being recommended, and what it generally is expected to do. We talked about major risks or complications that could occur. We talked about options other than the recommended surgery / procedure (including no treatment) and the benefits and risks of each option. I received and understand information describing the surgery or procedure, its potential risks, and complications. I know surgery / medicine is not an exact science. No doctor, nurse or anyone from [facility] promised or guaranteed the success or clinical outcome of the surgery / procedure, or that a risk or complication could not occur. I know every surgery / procedure has risks, including the risk of anesthesia, the risk of unplanned injury, the risk of infection and the risk of failure. I know that not every possible risk could be covered in the written materials or in talking with the doctor. Before signing this Consent, I had an opportunity to discuss the recommended surgery / procedure, other options, risks, and what may occur if I choose not to have the surgery / procedure. I am satisfied with the answers to all of my questions. I understand about risks and knowingly accept them. If you are (or believe you may be ), tell your doctor or nurse before you sign this Consent. Your doctor will discuss with you if there are potential risks to your unborn child. Your consent will be for yourself and for the unborn child. It is the Hospital?s policy to require that a responsible adult drive you directly home when you leave the Hospital. By signing, you accept and agree with this policy. By signing, I voluntarily and knowingly give my informed consent: To have the doctor perform the recommended surgery / procedure To have such anesthetics (including moderate / deep sedation) that are necessary and advisable. To have the doctor perform additional, medically necessary surgery / procedures to treat any unforeseen or newly-discovered condition that occurs during surgery / the procedure, which needs prompt attention. To examine, record and dispose of any tissue or body parts that are removed. To allow photographs that will be used strictly for documenting my medical condition and treatment, which will be made a part of my confidential medical record. To allow [facility] employees, such as an Registered Nurse Speech Pathology Supervisor ([employer]) to assist with my surgery To allow Healthcare Industry Representatives to be present during my surgery or procedure To allow students to participate in the care, under appropriate situations. Page 1 of 2 [facility] Informed Consent Check One: To give me blood or blood products during surgery / procedure and during my hospital stay, as medically necessary. The risks, benefits, and alternatives to transfusions have been discussed with me and all my questions have been answered. To not give me blood or blood products. I fully understand that this may adversely affect my medical management and may result in my . Alternatives to blood / blood products have been discussed with me. I read this Form, or had it read to me. I understand what it says. Patient Signature Relationship to Patient Date AND Time Signed Reason Patient Does Not Sign Witness to Signature Only Date and Time Signed I certify that I have explained the nature, purpose, anticipated risks and benefits, complications, and alternatives to the proposed procedure to the patient. I have answered all questions fully and I believe the patient fully understands what I have explained. Physician?s Signature Date and Time [place] [facility] [address] [address] Alvarez Mccoy MD ([facility]) [address] [place] [address] 12/18/2017 Dear Alvarez Mccoy MD : Thank you for allowing me to evaluate your patient, Quyen Coker. I saw Quyen on 12/18/2017. I am planning to perform a adsfsadf. Enclosed is a copy of my office dictation for Quyen which includes my evaluation and recommendations. Again, thank you for the referral of Quyen Coker. If I can be of any assistance to you in the future, please don't hesitate to call. Sincerely yours, Lc Elmore MD, FACS HISTORY AND PHYSICAL - NIPPLE DISCHARGE - LEFT BREAST Quyen Coker 1940 December 18, 2017 REFERRING PHYSICIAN: Alvarez Mccoy MD CHIEF COMPLAINT: NIPPLE DISCHARGE - LEFT HPI: Quyen is a patient I am following for left medial breast microcalcifications, 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 She returns here for follow-up of her breast related issues. 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 Her complicated history is as follows: The patient is a 74 year old female with a complaint of rectal bleeding and anemia. The patient initially underwent upper endoscopy which demonstrated no obvious source. The patient underwent colonoscopy by Dr. Chuck Penn on July 13 which demonstrated a fungating mass at the cecum ascending colon junction. Pathology returned as invasive adenocarcinoma. The patient is being seen by me today at the request of Dr. Penn for my opinion and advice regarding right colon cancer. The patient has a history of coronary disease and carotid stenosis. She has been on Plavix which was on hold after her endoscopy and prior to her surgical procedure. Additionally, she had undergone previous left carotid endarterectomy. Patient was recently evaluated by her metal patternmaker, Dr. Sujit Maya. She had undergone coronary bypass grafting in 2011 and is status post an LAD and left circumflex stent placement in November 2013. 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 She has good left ventricular ejection fraction. It was felt she was an acceptable risk for surgical intervention and did not require further preoperative cardiac diagnostic studies. I performed a laparoscopic right hemicolectomy on July 28, 2015. The pathology demonstrated: The tumor's size was 3.0x2.6.1.0 cm. Macroscopic tumor perforation was not identified. Histologic type: adenocarcinoma Histologic Grade: Low grade Histologic features for microsatellite instability - Intratumoral lymphocytic response: Mild to moderate Peritumoral lymphocytic response: Crohn's like lymphoid response: None Tumor subtype and differentiation: Not applicable MIcroscopic tumor extension: tumor invades through muscularis propria into subserosal adipose Lymphovascular invasion: None Perineural invasion: None Surgical margins were free of disease. Lymph nodes examined: 14 Lymph nodes involved: 0 PATHOLOGIC STAGE: pT 3, pN 0, M 0 Quyen noted loose stools had been continuing for the past few days at her August 15 follow-up. She has been maintaining a low residue diet. She also notes very transient dizziness. Post operative pain has been well controlled. The patient notes nausea. The patient`s appetite has been average. She was admitted to the hospital on August 22 with further looser stools and dizziness and some dehydration. Stool cultures were obtained which demonstrated no abnormalities. She was started on probiotics and Imodium and this significantly improved her stool frequency. She notes that at this point in time, her stools remain somewhat green but are less loose than they were. Overall she states her appetite still remains fair. She also notes that she is having issues of persistent nausea. She noted that this seemed similar to this as she had had in the past and was evaluated by Dr. Penn with upper endoscopy which was apparently unremarkable. The patient has been on a 20 mg Prilosec dose for some time. She notes that her nausea symptoms improve if she takes Maalox. The patient still is complaining of episodic transient dizziness that is worse if she raises up more quickly. Additionally, the patient underwent a recent follow-up mammogram. This was read as demonstrating a 8 mm mass with microcalcifications in her left breast. It was recommended biopsy listed BI-RADS Category 4. The patient did not have ultrasound performed. She irregularly performs a self breast exam and notes overall lumpy breasts but denies any specific changes. She denies skin changes, nipple discharge, or other difficulties. She had a previous mammogram that did demonstrate some microcalcifications similar mass. I obtained a CT scan of the abdomen and pelvis. This demonstrated no intra-abdominal abnormalities and demonstrated the anastomosis to have no signs of leakage inflammation or abscess which I felt could've been concerning for her abdominal complaints. There was noted to be in an area of asymmetric contrast enhancement in the liver which seemed to go away in delayed films. There were a list of possible options for this and MRI was recommended as an option. The patient had a previous CT scan preop which demonstrated similar findings from my standpoint and intraoperatively had no abnormalities noted in this location at the liver surface. I felt it was not necessary to have an MRI. Dr. Vasquez evaluated the patient and was concerned of those findings and recommended an MRI be obtained. The patient has since seen her primary care physician. Her oral hypoglycemic medication was stopped which has both cured her dizziness symptoms and her epigastric/nausea symptoms. We also obtained ultrasound which demonstrates no specific abnormalities in her left breast I performed a left side stereotactic biopsy for her abnormal mammogram on September 15, 2014. The pathology returned as DCIS. The patient notes some resolution of the bruising since the procedure but now notes a mass that worries her at the biopsy site. 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 Nuclear Grade - 2 (intermediate). Necrosis - present, single cell necrosis. Calcifications - present. Additional findings - focal fibrocystic changes. Negative for invasive carcinoma in the submitted specimen. I plan to obtain an MRI to assess her breast for additional or more extended pathology. MRI of the breast returned as: IMPRESSION: KNOWN BIOPSY PROVEN MALIGNANCY Longitudinally oriented area of mild enhancement in the central left breast thought to be due to postbiopsy hemorrhage/inflammation. Tumor along this entire length is thought less likely but cannot be excluded. Brandee condon/penreyna:10/12/2015 12:43:57 Cash Room Clerk: [facility] letter sent: Category 6 MRI BI-RADS: 6 Known biopsy proven malignancy Aerologist: VIDYA Transcribe Date/Time: Oct 12 2015 12:43P Dictated by : BRANDEE AYALA MD This examination was interpreted and the report reviewed and electronically signed by: BRANDEE AYALA MD On Oct 12 2015 12:43PM Results-Findings * * *Final Report* * * DATE OF EXAM: Oct 11 2015 9:45AM [facility] [id number] - MRI BREAST YAN [facility] / PROCEDURE REASON: DCIS (D05.10), ABNORMAL MAMMOGRAM OF LEFT BREAST (R92.8) * * * * Physician Interpretation * * * * #[id number] - MRI BREAST YAN [facility] BREAST MRI OF BOTH BREASTS : 10/11/2015 HISTORY: Dcis (D05.10), Abnormal Mammogram Of Left Breast (R92.8). RESULT: No prior exams were available for comparison. Interpretation of this MRI was correlated with available mammograms. Gadolinium contrast calibrated to patient weight was injected. Axial T1, T2, pre and post contrast T1, and coronal images were obtained with a dedicated breast coil. The breasts are mostly fatty bilaterally. No mass, architectural distortion or abnormal enhancement is seen in the right breast. In the mid central right breast, centered just above the nipple is a longitudinal area of mild increased progressive enhancement. This is in the vicinity of recent biopsy. There is susceptibility artifact. However, the length of abnormal enhancement is much greater than the targeted lesion measuring approximately 4 cm in craniocaudal dimension. Maximal AP dimension is approximately 1.7 cm and maximal transverse dimension 1.3 cm. This abnormal enhancement could be biopsy related, perhaps representing postbiopsy hemorrhage/inflammation. No other areas of abnormal enhancement or architectural distortion are seen. There are no abnormalities seen in the axillary nodes region or infraclavicular nodes. The patient's abdominal MRI returned as: IMPRESSION: Large left hepatic lobe lesion, neoplastic in appearance and likely metastatic from the patient's known colonic CA. Partial SMV thrombus. COMMUNICATION: Communicated with: SUJIT Hernandez 10/13/2015 12:20 PM. Aerologist: [facility] Transcribe Date/Time: Oct 13 2015 12:26P Dictated by : BRANDEE AYALA MD This examination was interpreted and the report reviewed and electronically signed by: BRANDEE AYALA MD On Oct 13 2015 12:26PM Results-Findings * * *Final Report* * * DATE OF EXAM: Oct 13 2015 9:35AM [facility] 0445 - MRI ABDOMEN WWO CONTRAST / PROCEDURE REASON: abnormal ct of lever r93.2 malignant neoplasm of ascending colon c18.2 dcia lef * * * * Physician Interpretation * * * * RESULT: MRI of the abdomen without and with intravenous contrast HISTORY: abnormal ct of lever r93.2 malignant neoplasm of ascending colon c18.2 dcis left TECHNIQUE: Using the torso phased array coil, axial STIR, T1 weighted in- and [id number] and coronal HASTE images were obtained. Flow sensitive imaging through the portal vein was performed, as well. Then, using a 3-D GRE T1 weighted sequence, dynamic images were obtained before, during and after the administration of 19ml cc intravenous Dotarem. Comparison: None FINDINGS: Liver: There is a large, heterogeneously enhancing mass within the entire lateral segment of the left hepatic lobe and extending into the medial segment as well. This mass measures approximately 8.2 x 5.8 x 6.3 cm. This is most consistent with neoplasm, perhaps metastatic given the patient's history of colonic carcinoma. No additional hepatic lesions are seen. There is patchy hepatic fatty change throughout the right hepatic lobe. Biliary tract: The common bile duct is normal in course and caliber. No filling defect is identified within the common duct. Gallbladder: Absent Pancreatic duct: The visualized portions of the pancreatic duct are normal. Spleen: No lesion is identified. Pancreas: The pancreas enhances normally and is without focal lesions. Adrenal glands: No mass is identified Kidneys: The visualized portions of the kidneys are normal. No adenopathy is identified. There is partial, nonocclusive thrombus within the superior mesenteric vein just cephalad to its 1st branch. She had undergone liver resection with a left hepatectomy for metastatic colon cancer at April 27, 2016. She was doing well post her liver resection and then we proceeded with her surgical resection for her DCIS. I performed a left needle localization lumpectomy/partial mastectomy on July 05, 2016. The pathology demonstrated: MICROSCOPIC DIAGNOSIS Left breast mass, lumpectomy with needle localization: Focal ductal carcinoma in situ. Changes consistent with previous biopsy site. See cancer summary below. SJ:carmen 07/07/16 DUCTAL CARCINOMA IN SITU SUMMARY: Specimen - partial breast Procedure - excision with wire-guided localization Lymph node sampling ? no lymph nodes present Specimen integrity - single intact specimen Specimen size ? 15 x 9 x 4 cm Specimen laterality ? left Tumor site ? not specified Size (extent) of DCIS ? 0.3 cm in greatest dimension. See comment. 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 Architectural pattern - cribriform Nuclear grade - grade 2 (intermediate) Necrosis ? not identified Margins ? margin uninvolved by ductal carcinoma in situ. The tumor is 2 cm away from the closest anterior and posterior margins Treatment effect - no known presurgical therapy. Lymph nodes ? not submitted Distant metastasis ? not replicable Additional Pathologic Findings ? fibrocystic changes. - Focal changes consistent with previous biopsy site. Ancillary Studies from previous specimen ([id number] / [id number]): ER ? positive (65%, strong) FL ? positive (54%, strong) Her2 sophie (IHC) ? equivocal (2+) Her2 by FISH - not performed. Microcalcifications ? present in non-neoplastic tissue. Clinical history - Please make reference to previous specimen ([id number]) left breast, stereotactic core biopsy with diagnosis of ductal carcinoma in situ. Pathologic Staging: pTis(DCIS) pNx Mx The above summary is in compliance with [employer] (CAP) Cancer Protocols Checklist and [place] Joint Committee on Cancer (AJCC), Staging Manual, 7th Ed. COMMENT A minute focus of ductal carcinoma in situ is noted adjacent to the previous biopsy site. The ductal carcinoma in situ is measured on the glass slide. The ductal carcinoma in situ in the previous breast biopsy ([id number]) measures 0.4 x 0.2 cm in greatest dimension and present in 2 out of 4 blocks. Case has been reviewed in consultation with Dr. Segovia who concurs with the above diagnosis. IDC:SARAH Napier notes the site is well healing. Post operative pain has been well controlled. The patient denies nausea. The patient`s appetite has been good. Given the size of her DCIS she was not felt to need radiation following her procedure. She is doing a self breast exam and notes no palpable abnormalities. She recently underwent follow-up mammogram on February 13, 2017. This demonstrated: IMPRESSION: PROBABLY BENIGN The grouped calcifications in the left breast are probably benign. A follow-up mammogram in 6 months is recommended to demonstrate stability. Alvarez oro/giovanny:02/13/2017 12:06:29 Cash Room Clerk: Aubrie VALDEZ)(Luis Miguel), [facility] letter sent: # Mo FU Mammogram BI-RADS: 3 Probably benign Aerologist: Giovanny Transcribe Date/Time: Feb 13 2017 11:10A Dictated by: ALVAREZ CORONADO MD This examination was interpreted and the report reviewed and electronically signed by: ALVAREZ CORONADO MD on Feb 13 2017 12:06PM ?EST The patient follow up study was found to have recurrence of her tumor at the edge of the previous resection in the liver and was felt to be a lung metastases. She is currently undergoing salvage/palliative chemotherapy. Overall she is doing well with these treatments. She had 6 month follow-up mammogram and ultrasound. This demonstrated: IMPRESSION: SUSPICIOUS FINDING - BIOPSY SHOULD BE CONSIDERED - FOLLOW-UP RECOMMENDED The 7 mm dilated duct in the left breast resembles a solid mass or a papilloma and is suspicious of malignancy. ?An ultrasound guided biopsy is recommended. Juancarlos andersen/giovanny:10/17/2017 15:09:57 Cash Room Clerk: Aubrie CAZARES (R)(Luis Miguel) [facility] letter sent: Abnormal ? Mammogram BI-RADS: 4 Suspicious finding - Biopsy should be considered Ultrasound BI-RADS: 4 Suspicious finding - Biopsy should be considered Aerologist: Giovanny Transcribe Date/Time: Oct 17 2017 ?1:56P Dictated by : JUANCARLOS SNOW MD This examination was interpreted and the report reviewed and electronically signed by: JUANCARLOS SNOW MD on Oct 17 2017 ?3:09PM ?EST Results-Findings * * *Final Report* * * DATE OF EXAM: Oct 17 2017 ?2:54PM ? [facility] ? [id number] ?- ?[facility] US BREAST LTD LT ?/ PROCEDURE REASON: 6 month bilateral / left breast / abnormal mammogram ?? ? * * * * Physician Interpretation * * * * ?#[id number] - [facility] DIAGNOSTIC YAN BILATERAL DIGITAL DIAGNOSTIC MAMMOGRAM WITH CAD: 10/17/2017 HISTORY: 6 Month Bilateral / Left Breast / Abnormal Mammogram. RESULT: TECHNIQUE: ?The study was acquired using full field digital technology and interpreted from soft copy. Current study was also evaluated with a Computer Aided Detection (CAD). Comparison is made to exams dated: ?02/13/2017 mammogram, 09/04/2016 mammogram - [facility], 09/06/2015 mammogram, and 09/03/2015 mammogram. There are scattered fibroglandular elements in both breasts. The left breast has post-operative findings. There are grouped pleomorphic calcifications in the left breast at 9 o'clock anterior depth. No other significant masses, calcifications, or other findings are seen in either breast. SUSPICIOUS FINDING - BIOPSY SHOULD BE CONSIDERED The grouped pleomorphic calcifications in the left breast are suspicious of malignancy. ?A stereotactic biopsy is recommended. There is no abnormality seen in the left breast to correspond with the discharge from the nipple, however, clinical correlation is recommended. #[id number] - [facility] US BREAST LTD LT ULTRASOUND OF LEFT BREAST: 10/17/2017 RESULT: Comparison is made to exams dated: ?02/13/2017 mammogram, 09/04/2016 mammogram - [facility], 09/06/2015 mammogram, and 09/03/2015 mammogram. Real-time ultrasound of the left breast was performed. There is a 7 mm dilated duct in the left breast central to the nipple in the retroareolar region. ?This dilated duct displays internal echoes. She is currently recently receiving salvage chemotherapy for her metastatic colon cancer. She seems to be relatively stable on this course of treatment. The patient and her after considerable discussion would like to have biopsies of these areas. We plan to perform the biopsy at the midpoint of her chemotherapy therapy treatments I performed a left side Stereotactic guided core biopsy for her abnormal mammogram on November 20, 2017. The pathology returned as: Fibrocystic changes, focal intraductal hyperplasia without atypia. Hyalinized nodular with clustered microcalcifications, no evidence of malignancy She now returns to schedule her left ultrasound guided excisional breast biopsy for likely intraductal papilloma, ductal dilatation at the medial aspect of the left nipple. PAST MEDICAL HISTORY Diagnosis Date - Anemia - Arthritis - Asthma - Atrial arrhythmia - Atrial fibrillation (HCC) - Carotid artery disease (HCC) - Colon cancer (HCC) - Coronary artery disease - Diabetes (HCC) - Eczema - Fibromyalgia - H/O degenerative disc disease - Hearing loss - Hyperlipidemia - Hypertension - Myocardial infarction (HCC) - Radiculopathy - Sleep apnea - Spondylolysis PAST SURGICAL HISTORY Procedure Laterality Date - APPENDECTOMY 04/1977 - BREAST BIOPSY 11/20/2017 left breast stereotactic biopsy and marker placement [facility] [place] [facility] - BENIGN - BREAST BIOPSY W/STEREOTACTIC GUIDANCE 09/15/15 left - DCIS - CAROTID ENDARTERECTOMY Left 02/07/2013 - CATARACT EXTRACTION HX 06/2009 - CATARACT EXTRACTION HX 08/2009 - CHOLECYSTECTOMY HX 02/28/1995 - COLONOSCOP W/ OR W/O BRSH SPEC 09/08/2016 normal - clean anastomosis - 3 year follow up - HYSTERECTOMY HX 04/1977 - LAPAROSCOPIC HEMICOLECTOMY 07/28/15 - MASTECTOMY, PARTIAL Left 07/05/16 - PAST SURGICAL HISTORY OF 12/04/2013 coronary stent - PAST SURGICAL HISTORY OF 02/13/2012 double bi-pass - PAST SURGICAL HISTORY OF 1969 tongue surgery - RESEC LIVER,PART LOBECTOMY 04/27/2016 - S PORTACATH [id number] 09/11/2017 port placement [place] - TONSILLECTOMY AND ADENOIDECTOMY HX 01/1952 - TUNNEL VAD W SUB Q PORT >=5 11/02/15 port Current Outpatient Prescriptions: [id number]-[id number]-[id number] (BMX 1:1:1) 1:1:1 liqd Take 10 mL by mouth every 4 hours as needed (Swish and Spit every 4 hours as needed.). Disp: 300 mL Rfl: 2 predniSONE (DELTASONE) 10 mg tablet Take 1 tablet twice the day before each chemotherapy treatment and one tablet the evening of chemotherapy. Disp: 30 tablet Rfl: 0 potassium chloride (KLOR-CON) 20 mEq packet Take 20 mEq by mouth once daily. Disp: 90 Packet Rfl: 3 rivaroxaban (XARELTO) 15 mg tablet Take 1 tablet by mouth daily with dinner. (Patient taking differently: Take by mouth daily with dinner. ) Disp: Rfl: ondansetron (ZOFRAN) 8 mg tablet Take 1 tablet by mouth every 8 hours as needed for Nausea/Vomiting. Disp: 30 tablet Rfl: 2 lidocaine-prilocaine (EMLA) cream Apply 1 application to affected area as needed. Disp: 15 g Rfl: 2 0.9 % SODIUM CHLORIDE (0.9% NACL) Access implanted vascular access device (IVAD) as needed for flush, blood draw or treatment.Flush IVAD with 10-20 mL NS every 4 weeks and PRN when IVAD not in use. Disp: 2 Syringe Rfl: 50 heparin 100 unit/mL injection Access implanted vascular access device (IVAD) as needed for flush, blood draw or treatment. Before de-accessing port, flush with 10-20ml normal saline and follow with 5 mL heparin (100 units/mL) (if no heparin allergy). De-access port on treatment completion. Disp: 50 mL Rfl: 3 ketoconazole (NIZORAL) 2 % cream Apply 1 application to affected area twice daily. Disp: Rfl: Loperamide HCl (IMODIUM A-D) 2 mg tab Take 2 mg by mouth as needed. Disp: Rfl: promethazine (PHENERGAN) 25 mg tablet Take 0.5-1 tablets by mouth every 6 hours as needed. FOR NAUSEA Disp: 30 tablet Rfl: 2 0.9% NaCl Access implanted vascular access device (IVAD) as needed for flush, blood draw or treatment.Flush IVAD with 10-20 mL NS every 4 weeks and PRN when IVAD not in use. Disp: 2 Syringe Rfl: 50 heparin 100 unit/mL syrg Access implanted vascular access device (IVAD) as needed for flush, blood draw or treatment. Before de-accessing port, flush with 10-20ml normal saline and follow with 5 mL heparin (100 units/mL) (if no heparin allergy). De-access port on treatment completion. Disp: 1 Syringe Rfl: 50 furosemide (LASIX) 20 mg tablet Take 2 tablets by mouth twice daily. Disp: Rfl: montelukast (SINGULAIR) 10 mg tablet Take 1 tablet by mouth daily at bedtime. as needed. Disp: Rfl: 0 FERREX 150 150 mg iron capsule Take 1 capsule by mouth once daily. Disp: Rfl: 0 magnesium oxide (MAG-OX) 400 mg tablet Take 400 mg by mouth twice daily. Disp: Rfl: clotrimazole-betamethasone (LOTRISONE) cream Apply 1 application to affected area twice daily. Disp: 45 g Rfl: 2 acetaminophen (TYLENOL) 500 mg tablet Take 1,000 mg by mouth as needed. Disp: Rfl: diphenhydrAMINE (BENADRYL) 25 mg tablet Take 50 mg by mouth as needed. Disp: Rfl: hydrocortisone valerate (WESTCORT) 0.2 % cream Apply 1 application to affected area three times daily as needed. Disp: Rfl: isosorbide mononitrate ER (IMDUR) 60 mg 24 hr tablet Take 60 mg by mouth once daily. Disp: Rfl: aspirin, enteric coated (ASPIRIN, ENTERIC COATED) 81 mg EC tablet Take 81 mg by mouth once daily. Disp: Rfl: metoprolol tartrate, short acting, (LOPRESSOR) 50 mg tablet Take 50 mg by mouth twice daily. Disp: Rfl: lisinopril (ZESTRIL, PRINIVIL) 10 mg tablet Take 10 mg by mouth once daily. Disp: Rfl: omeprazole (PRILOSEC) 20 mg capsule Take 20 mg by mouth once daily. Disp: Rfl: mometasone (ASMANEX TWISTHALER) 220 mcg (60 doses) aepb Inhale 1 Puff as instructed. Disp: Rfl: cholecalciferol, vitamin D3, (VITAMIN D3) 4,000 unit cap Take 1 tablet by mouth once daily. Disp: Rfl: simvastatin (ZOCOR) 40 mg tablet Take 20 mg by mouth daily at bedtime. Disp: Rfl: nitroglycerin sublingual (NITROSTAT) 0.3 mg SL tablet Dissolve 0.3 mg under the tongue every 5 minutes as needed. Disp: Rfl: albuterol HFA (PROVENTIL HFA) 90 mcg/actuation inhaler Inhale 2 Puffs as instructed every 4 hours as needed. Disp: Rfl: EPINEPHrine 0.15 mg/0.15 mL (1:1,000) auto-injector by INJECTION(UNSPECIFIED PARENTERAL ROUTES) route as needed. Disp: Rfl: loratadine (CLARITIN) 10 mg tablet Take 10 mg by mouth as needed. Disp: Rfl: triamcinolone (KENALOG) 0.025 % cream Apply 1 application to affected area twice daily as needed. Disp: Rfl: No current facility-administered medications for this visit. 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 [employer] Social History Main Topics Smoking status: Never Smoker Smokeless status: Never Used Alcohol use: No Drug use: No Sexual activity: Not Currently Partners with: Male FAMILY HISTORY: FAMILY HISTORY Problem Relation Age of Onset - Heart Mother - Diabetes Mother - Heart Father - Breast Cancer Sister 69 Also had cervix cancer at about age 60 - Breast Cancer Maternal Aunt 70 - Heart Brother PR REVIEW OF SYMPTOMS: The review of systems data was entered by the nurse and reviewed by me Nursing Notes: Lalo Chavez LPN 12/18/2017 1:23 PM Signed REVIEW OF SYSTEMS: General: The patient NOTES fatigue, denies weight loss, denies weight gain, denies feeling hot, and denies feelings of cold. Eyes: The patient denies glaucoma, NOTES eye injury/surgery, does not wear glasses or contacts. Ear/Nose/Throat: The patient denies allergies, denies hayfever, denies ear infections, and denies bloody noses. Cardiovascular: The patient denies chest pain, denies heart disease, NOTES high blood pressure,NOTES cardiac stent, NOTES prior heart attack, NOTES irregular heart beat, NOTES high cholesterol, denies poor circulation, denies heart failure, other cardiac issues, denies claudication, denies cold feet, denies peripheral arterial stent. Respiratory: The patient NOTES tuberculosis, NOTES pneumonia, NOTES frequent cough, denies pulmonary embolism, NOTES shortness of breath, and denies coughing up blood. Gastrointestinal: The patient denies difficulty swallowing, denies acid reflux, denies ulcers, denies vomiting, denies jaundice/hepatitis, NOTES gallbladder problems, denies black or tarry stools, NOTES hemorrhoids, denies bleeding from rectum, denies diverticulitis, denies constipation, denies diarrhea, denies loss of stool control, and denies hernias. Kidney/Bladder: The patient denies kidney stones, denies urine infections, and denies bloody urine. Skin: The patient denies a history of skin cancer, denies bleeding/changing moles, and denies a history of skin rash. Neurologic: The patient denies a history of epilepsy/convulsions, denies headaches, denies head/spinal injuries, and denies stroke/TIA. Psychiatric: The patient denies psychiatric medications, denies depression, and denies voices, denies substance abuse. Endocrine: The patient denies thyroid disorders, NOTES diabetes, and denies hormonal problems. Hematologic: The patient denies a history of bruising, denies bleeding, and NOTES anemia, denies blood clots. Infections: The patient NOTES a history of measles and mumps, denies rheumatic fever, and denies sexually transmitted diseases. Musculoskeletal: The patient NOTES back pain/injury, denies back problems, denies sciatica, denies knee/foot trouble, NOTES arthritis, or denies gout. When was patient's last Mammogram screening? 2018 Last Colonoscopy: 09/12 Lalo Chavez UX MANAGER PHYSICAL EXAMINATION: General: The patient is 77 year old female, well nourished, well hydrated in no acute distress. The patient is oriented to time, place, and person. VITALS: Blood pressure 122/84, pulse 67, weight 99.3 kg (219 lb). Body mass index is 40.06 kg/(m2). HEENT: Normal cephalic, ataumatic, pupils are equally round, sclera are anicteric, mucous membranes are moist, oropharynx is clear. Neck has no masses, asymmetry or lymphadenopathy. Thyroid is unremarkable. Respiratory: Clear to auscultation and percussion. Normal respiratory excursion and pattern. Cardiac: Examination is regular rate and rhythm. Abdominal exam: Soft, nontender, with no palpable masses. No hepatosplenomegaly. No palpable hernias. Rectal exam: exam deferred Extremities: no clubbing, cyanosis or edema. No adenopathy. Breast: Visual inspection reveals no retractions, nipple inversion, or skin changes. Palpation of the right breast reveals no dominant or suspicious masses. Palpation of the left breast reveals still some bruising at the biopsy site but this is slowly resolving. Axillary exam demonstrates no suspicious masses in either the left or right axilla. There is no nipple discharge expressed from either the left or right breast. LABORATORY VALUES: As Noted RADIOLOGIC STUDIES: As Noted Intraoffice ultrasound did demonstrate the area of concern just medial to the left nipple. Assessment IMPRESSION: NIPPLE DISCHARGE - LEFT - ? , INTRADUCTAL PAPILLOMA PLAN: I plan to perform a left side needle localization biopsy/lumpectomy. The planned surgical procedure was discussed extensively with the patient. The risks, benefits, anticipated outcomes and possible complications and alternatives were discussed. My staff has also explained the procedure in understandable terms and the patient was given the option to take printed material concerning the planned procedure. The patient had the opportunity to ask questions concerning the planned procedure. The patient freely consents to the planned procedure. Anticipated Surgical Procedure/ CPT Code: left preoperative ultrasound guided needle placement -69538 EXCISIONAL BREAST BIOPSY - [id number] Anticipated Anesthetic: General Patient weight: Blood pressure 122/84, pulse 67, weight 99.3 kg (219 lb). BMI: Body mass index is 40.06 kg/(m2). Planned antibiotic: clindamycin 600mg IVPB legislative correspondent to OR SCDs needed - Yes E Learning Specialist Needed - No Diagnoses: (N64.52) Nipple discharge (primary encounter diagnosis) Return to Clinic: The patient is instructed to follow-up with me 1 week post operatively. Lc Elmore MD 12/18/2017 HISTORY AND PHYSICAL - NIPPLE DISCHARGE - LEFT BREAST Quyen Coker 1940 December 18, 2017 REFERRING PHYSICIAN: Alvarez Mccoy MD CHIEF COMPLAINT: NIPPLE DISCHARGE - LEFT HPI: Quyen is a patient I am following for left medial breast microcalcifications, 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 She returns here for follow-up of her breast related issues. 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 Her complicated history is as follows: The patient is a 74 year old female with a complaint of rectal bleeding and anemia. The patient initially underwent upper endoscopy which demonstrated no obvious source. The patient underwent colonoscopy by Dr. Chuck Penn on July 13 which demonstrated a fungating mass at the cecum ascending colon junction. Pathology returned as invasive adenocarcinoma. The patient is being seen by me today at the request of Dr. Penn for my opinion and advice regarding right colon cancer. The patient has a history of coronary disease and carotid stenosis. She has been on Plavix which was on hold after her endoscopy and prior to her surgical procedure. Additionally, she had undergone previous left carotid endarterectomy. Patient was recently evaluated by her metal patternmaker, Dr. Sujit Maya. She had undergone coronary bypass grafting in 2011 and is status post an LAD and left circumflex stent placement in November 2013. 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 She has good left ventricular ejection fraction. It was felt she was an acceptable risk for surgical intervention and did not require further preoperative cardiac diagnostic studies. I performed a laparoscopic right hemicolectomy on July 28, 2015. The pathology demonstrated: The tumor's size was 3.0x2.6.1.0 cm. Macroscopic tumor perforation was not identified. Histologic type: adenocarcinoma Histologic Grade: Low grade Histologic features for microsatellite instability - Intratumoral lymphocytic response: Mild to moderate Peritumoral lymphocytic response: Crohn's like lymphoid response: None Tumor subtype and differentiation: Not applicable MIcroscopic tumor extension: tumor invades through muscularis propria into subserosal adipose Lymphovascular invasion: None Perineural invasion: None Surgical margins were free of disease. Lymph nodes examined: 14 Lymph nodes involved: 0 PATHOLOGIC STAGE: pT 3, pN 0, M 0 Quyen noted loose stools had been continuing for the past few days at her August 15 follow-up. She has been maintaining a low residue diet. She also notes very transient dizziness. Post operative pain has been well controlled. The patient notes nausea. The patient`s appetite has been average. She was admitted to the hospital on August 22 with further looser stools and dizziness and some dehydration. Stool cultures were obtained which demonstrated no abnormalities. She was started on probiotics and Imodium and this significantly improved her stool frequency. She notes that at this point in time, her stools remain somewhat green but are less loose than they were. Overall she states her appetite still remains fair. She also notes that she is having issues of persistent nausea. She noted that this seemed similar to this as she had had in the past and was evaluated by Dr. Penn with upper endoscopy which was apparently unremarkable. The patient has been on a 20 mg Prilosec dose for some time. She notes that her nausea symptoms improve if she takes Maalox. The patient still is complaining of episodic transient dizziness that is worse if she raises up more quickly. Additionally, the patient underwent a recent follow-up mammogram. This was read as demonstrating a 8 mm mass with microcalcifications in her left breast. It was recommended biopsy listed BI-RADS Category 4. The patient did not have ultrasound performed. She irregularly performs a self breast exam and notes overall lumpy breasts but denies any specific changes. She denies skin changes, nipple discharge, or other difficulties. She had a previous mammogram that did demonstrate some microcalcifications similar mass. I obtained a CT scan of the abdomen and pelvis. This demonstrated no intra-abdominal abnormalities and demonstrated the anastomosis to have no signs of leakage inflammation or abscess which I felt could've been concerning for her abdominal complaints. There was noted to be in an area of asymmetric contrast enhancement in the liver which seemed to go away in delayed films. There were a list of possible options for this and MRI was recommended as an option. The patient had a previous CT scan preop which demonstrated similar findings from my standpoint and intraoperatively had no abnormalities noted in this location at the liver surface. I felt it was not necessary to have an MRI. Dr. Vasquez evaluated the patient and was concerned of those findings and recommended an MRI be obtained. The patient has since seen her primary care physician. Her oral hypoglycemic medication was stopped which has both cured her dizziness symptoms and her epigastric/nausea symptoms. We also obtained ultrasound which demonstrates no specific abnormalities in her left breast I performed a left side stereotactic biopsy for her abnormal mammogram on September 15, 2014. The pathology returned as DCIS. The patient notes some resolution of the bruising since the procedure but now notes a mass that worries her at the biopsy site. 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 Nuclear Grade - 2 (intermediate). Necrosis - present, single cell necrosis. Calcifications - present. Additional findings - focal fibrocystic changes. Negative for invasive carcinoma in the submitted specimen. I plan to obtain an MRI to assess her breast for additional or more extended pathology. MRI of the breast returned as: IMPRESSION: KNOWN BIOPSY PROVEN MALIGNANCY Longitudinally oriented area of mild enhancement in the central left breast thought to be due to postbiopsy hemorrhage/inflammation. Tumor along this entire length is thought less likely but cannot be excluded. Brandee condon/penrad:10/12/2015 12:43:57 Cash Room Clerk: [facility] letter sent: Category 6 MRI BI-RADS: 6 Known biopsy proven malignancy Aerologist: VIDYA Transcribe Date/Time: Oct 12 2015 12:43P Dictated by : BRANDEE AYALA MD This examination was interpreted and the report reviewed and electronically signed by: BRANDEE AYALA MD On Oct 12 2015 12:43PM Results-Findings * * *Final Report* * * DATE OF EXAM: Oct 11 2015 9:45AM [facility] [id number] - MRI BREAST YAN WWO / PROCEDURE REASON: DCIS (D05.10), ABNORMAL MAMMOGRAM OF LEFT BREAST (R92.8) * * * * Physician Interpretation * * * * #[id number] - MRI BREAST YAN WWO BREAST MRI OF BOTH BREASTS : 10/11/2015 HISTORY: Dcis (D05.10), Abnormal Mammogram Of Left Breast (R92.8). RESULT: No prior exams were available for comparison. Interpretation of this MRI was correlated with available mammograms. Gadolinium contrast calibrated to patient weight was injected. Axial T1, T2, pre and post contrast T1, and coronal images were obtained with a dedicated breast coil. The breasts are mostly fatty bilaterally. No mass, architectural distortion or abnormal enhancement is seen in the right breast. In the mid central right breast, centered just above the nipple is a longitudinal area of mild increased progressive enhancement. This is in the vicinity of recent biopsy. There is susceptibility artifact. However, the length of abnormal enhancement is much greater than the targeted lesion measuring approximately 4 cm in craniocaudal dimension. Maximal AP dimension is approximately 1.7 cm and maximal transverse dimension 1.3 cm. This abnormal enhancement could be biopsy related, perhaps representing postbiopsy hemorrhage/inflammation. No other areas of abnormal enhancement or architectural distortion are seen. There are no abnormalities seen in the axillary nodes region or infraclavicular nodes. The patient's abdominal MRI returned as: IMPRESSION: Large left hepatic lobe lesion, neoplastic in appearance and likely metastatic from the patient's known colonic CA. Partial SMV thrombus. COMMUNICATION: Communicated with: SUJIT Hernandez 10/13/2015 12:20 PM. Aerologist: VIDYA Transcribe Date/Time: Oct 13 2015 12:26P Dictated by : BRANDEE AYALA MD This examination was interpreted and the report reviewed and electronically signed by: BRANDEE AYALA MD On Oct 13 2015 12:26PM Results-Findings * * *Final Report* * * DATE OF EXAM: Oct 13 2015 9:35AM [facility] [id number] - MRI ABDOMEN WWO CONTRAST / PROCEDURE REASON: abnormal ct of lever r93.2 malignant neoplasm of ascending colon c18.2 dcia lef * * * * Physician Interpretation * * * * RESULT: MRI of the abdomen without and with intravenous contrast HISTORY: abnormal ct of lever r93.2 malignant neoplasm of ascending colon c18.2 dcis left TECHNIQUE: Using the torso phased array coil, axial STIR, T1 weighted in- and [id number] and coronal HASTE images were obtained. Flow sensitive imaging through the portal vein was performed, as well. Then, using a 3-D GRE T1 weighted sequence, dynamic images were obtained before, during and after the administration of 19ml cc intravenous Dotarem. Comparison: None FINDINGS: Liver: There is a large, heterogeneously enhancing mass within the entire lateral segment of the left hepatic lobe and extending into the medial segment as well. This mass measures approximately 8.2 x 5.8 x 6.3 cm. This is most consistent with neoplasm, perhaps metastatic given the patient's history of colonic carcinoma. No additional hepatic lesions are seen. There is patchy hepatic fatty change throughout the right hepatic lobe. Biliary tract: The common bile duct is normal in course and caliber. No filling defect is identified within the common duct. Gallbladder: Absent Pancreatic duct: The visualized portions of the pancreatic duct are normal. Spleen: No lesion is identified. Pancreas: The pancreas enhances normally and is without focal lesions. Adrenal glands: No mass is identified Kidneys: The visualized portions of the kidneys are normal. No adenopathy is identified. There is partial, nonocclusive thrombus within the superior mesenteric vein just cephalad to its 1st branch. She had undergone liver resection with a left hepatectomy for metastatic colon cancer at April 27, 2016. She was doing well post her liver resection and then we proceeded with her surgical resection for her DCIS. I performed a left needle localization lumpectomy/partial mastectomy on July 05, 2016. The pathology demonstrated: MICROSCOPIC DIAGNOSIS Left breast mass, lumpectomy with needle localization: Focal ductal carcinoma in situ. Changes consistent with previous biopsy site. See cancer summary below. SJ:carmen 07/07/16 DUCTAL CARCINOMA IN SITU SUMMARY: Specimen - partial breast Procedure - excision with wire-guided localization Lymph node sampling ? no lymph nodes present Specimen integrity - single intact specimen Specimen size ? 15 x 9 x 4 cm Specimen laterality ? left Tumor site ? not specified Size (extent) of DCIS ? 0.3 cm in greatest dimension. See comment. 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 Architectural pattern - cribriform Nuclear grade - grade 2 (intermediate) Necrosis ? not identified Margins ? margin uninvolved by ductal carcinoma in situ. The tumor is 2 cm away from the closest anterior and posterior margins Treatment effect - no known presurgical therapy. Lymph nodes ? not submitted Distant metastasis ? not replicable Additional Pathologic Findings ? fibrocystic changes. - Focal changes consistent with previous biopsy site. Ancillary Studies from previous specimen ([id number] / [id number]): ER ? positive (65%, strong) FL ? positive (54%, strong) Her2 sophie (IHC) ? equivocal (2+) Her2 by FISH - not performed. Microcalcifications ? present in non-neoplastic tissue. Clinical history - Please make reference to previous specimen ([id number]) left breast, stereotactic core biopsy with diagnosis of ductal carcinoma in situ. Pathologic Staging: pTis(DCIS) pNx Mx The above summary is in compliance with [employer] (CAP) Cancer Protocols Checklist and [place] [employer] Committee on Cancer (AJCC), Staging Manual, 7th Ed. COMMENT A minute focus of ductal carcinoma in situ is noted adjacent to the previous biopsy site. The ductal carcinoma in situ is measured on the glass slide. The ductal carcinoma in situ in the previous breast biopsy ([id number]) measures 0.4 x 0.2 cm in greatest dimension and present in 2 out of 4 blocks. Case has been reviewed in consultation with Dr. Segovia who concurs with the above diagnosis. IDC:SARAH Napier notes the site is well healing. Post operative pain has been well controlled. The patient denies nausea. The patient`s appetite has been good. Given the size of her DCIS she was not felt to need radiation following her procedure. She is doing a self breast exam and notes no palpable abnormalities. She recently underwent follow-up mammogram on February 13, 2017. This demonstrated: IMPRESSION: PROBABLY BENIGN The grouped calcifications in the left breast are probably benign. A follow-up mammogram in 6 months is recommended to demonstrate stability. Alvarez oro/giovanny:02/13/2017 12:06:29 Cash Room Clerk: Aubrie GALARZA (R)), [facility] letter sent: # Mo FU Mammogram BI-RADS: 3 Probably benign Aerologist: Giovanny Transcribe Date/Time: Feb 13 2017 11:10A Dictated by: ALVAREZ CORONADO MD This examination was interpreted and the report reviewed and electronically signed by: ALVAREZ CORONADO MD on Feb 13 2017 12:06PM ?EST The patient follow up study was found to have recurrence of her tumor at the edge of the previous resection in the liver and was felt to be a lung metastases. She is currently undergoing salvage/palliative chemotherapy. Overall she is doing well with these treatments. She had 6 month follow-up mammogram and ultrasound. This demonstrated: IMPRESSION: SUSPICIOUS FINDING - BIOPSY SHOULD BE CONSIDERED - FOLLOW-UP RECOMMENDED The 7 mm dilated duct in the left breast resembles a solid mass or a papilloma and is suspicious of malignancy. ?An ultrasound guided biopsy is recommended. Juancarlos andersen/giovanny:10/17/2017 15:09:57 Cash Room Clerk: Aubrie GALARZA (R)), [facility] letter sent: Abnormal ? Mammogram BI-RADS: 4 Suspicious finding - Biopsy should be considered Ultrasound BI-RADS: 4 Suspicious finding - Biopsy should be considered Aerologist: Giovanny Transcribe Date/Time: Oct 17 2017 ?1:56P Dictated by : JUANCARLOS SNOW MD This examination was interpreted and the report reviewed and electronically signed by: JUANCARLOS SNOW MD on Oct 17 2017 ?3:09PM ?EST Results-Findings * * *Final Report* * * DATE OF EXAM: Oct 17 2017 ?2:54PM ? WRU ? [id number] ?- ?[facility] US BREAST LTD LT ?/ PROCEDURE REASON: 6 month bilateral / left breast / abnormal mammogram ?? ? * * * * Physician Interpretation * * * * ?#[id number] - [facility] DIAGNOSTIC YAN BILATERAL DIGITAL DIAGNOSTIC MAMMOGRAM WITH CAD: 10/17/2017 HISTORY: 6 Month Bilateral / Left Breast / Abnormal Mammogram. RESULT: TECHNIQUE: ?The study was acquired using full field digital technology and interpreted from soft copy. Current study was also evaluated with a Computer Aided Detection (CAD). Comparison is made to exams dated: ?02/13/2017 mammogram, 09/04/2016 mammogram - [facility], 09/06/2015 mammogram, and 09/03/2015 mammogram. There are scattered fibroglandular elements in both breasts. The left breast has post-operative findings. There are grouped pleomorphic calcifications in the left breast at 9 o'clock anterior depth. No other significant masses, calcifications, or other findings are seen in either breast. SUSPICIOUS FINDING - BIOPSY SHOULD BE CONSIDERED The grouped pleomorphic calcifications in the left breast are suspicious of malignancy. ?A stereotactic biopsy is recommended. There is no abnormality seen in the left breast to correspond with the discharge from the nipple, however, clinical correlation is recommended. #[id number] - [facility] BREAST [facility] LT ULTRASOUND OF LEFT BREAST: 10/17/2017 RESULT: Comparison is made to exams dated: ?02/13/2017 mammogram, 09/04/2016 mammogram - [facility], 09/06/2015 mammogram, and 09/03/2015 mammogram. Real-time ultrasound of the left breast was performed. There is a 7 mm dilated duct in the left breast central to the nipple in the retroareolar region. ?This dilated duct displays internal echoes. She is currently recently receiving salvage chemotherapy for her metastatic colon cancer. She seems to be relatively stable on this course of treatment. The patient and her after considerable discussion would like to have biopsies of these areas. We plan to perform the biopsy at the midpoint of her chemotherapy therapy treatments I performed a left side Stereotactic guided core biopsy for her abnormal mammogram on November 20, 2017. The pathology returned as: Fibrocystic changes, focal intraductal hyperplasia without atypia. Hyalinized nodular with clustered microcalcifications, no evidence of malignancy She now returns to schedule her left ultrasound guided excisional breast biopsy for likely intraductal papilloma, ductal dilatation at the medial aspect of the left nipple. PAST MEDICAL HISTORY Diagnosis Date - Anemia - Arthritis - Asthma - Atrial arrhythmia - Atrial fibrillation (HCC) - Carotid artery disease (HCC) - Colon cancer (HCC) - Coronary artery disease - Diabetes (HCC) - Eczema - Fibromyalgia - H/O degenerative disc disease - Hearing loss - Hyperlipidemia - Hypertension - Myocardial infarction (HCC) - Radiculopathy - Sleep apnea - Spondylolysis PAST SURGICAL HISTORY Procedure Laterality Date - APPENDECTOMY 04/1977 - BREAST BIOPSY 11/20/2017 left breast stereotactic biopsy and marker placement [facility] - BENIGN - BREAST BIOPSY W/STEREOTACTIC GUIDANCE 09/15/15 left - DCIS - CAROTID ENDARTERECTOMY Left 02/07/2013 - CATARACT EXTRACTION HX 06/2009 - CATARACT EXTRACTION HX 08/2009 - CHOLECYSTECTOMY HX 02/28/1995 - COLONOSCOP W/ OR W/O BRSH SPEC 09/08/2016 normal - clean anastomosis - 3 year follow up - HYSTERECTOMY HX 04/1977 - LAPAROSCOPIC HEMICOLECTOMY 07/28/15 - MASTECTOMY, PARTIAL Left 07/05/16 - PAST SURGICAL HISTORY OF 12/04/2013 coronary stent - PAST SURGICAL HISTORY OF 02/13/2012 double bi-pass - PAST SURGICAL HISTORY OF 1969 tongue surgery - RESEC LIVER,PART LOBECTOMY 04/27/2016 - S PORTACATH [id number] 09/11/2017 port placement [place] - TONSILLECTOMY AND ADENOIDECTOMY HX 01/1952 - TUNNEL VAD W SUB Q PORT >=5 11/02/15 port Current Outpatient Prescriptions: lkyjsxwtuwUDLIG-vatknr-bassoqzvz (BMX 1:1:1) 1:1:1 liqd Take 10 mL by mouth every 4 hours as needed (Swish and Spit every 4 hours as needed.). Disp: 300 mL Rfl: 2 predniSONE (DELTASONE) 10 mg tablet Take 1 tablet twice the day before each chemotherapy treatment and one tablet the evening of chemotherapy. Disp: 30 tablet Rfl: 0 potassium chloride (KLOR-CON) 20 mEq packet Take 20 mEq by mouth once daily. Disp: 90 Packet Rfl: 3 rivaroxaban (XARELTO) 15 mg tablet Take 1 tablet by mouth daily with dinner. (Patient taking differently: Take by mouth daily with dinner. ) Disp: Rfl: ondansetron (ZOFRAN) 8 mg tablet Take 1 tablet by mouth every 8 hours as needed for Nausea/Vomiting. Disp: 30 tablet Rfl: 2 lidocaine-prilocaine (EMLA) cream Apply 1 application to affected area as needed. Disp: 15 g Rfl: 2 0.9 % SODIUM CHLORIDE (0.9% NACL) Access implanted vascular access device (IVAD) as needed for flush, blood draw or treatment.Flush IVAD with 10-20 mL NS every 4 weeks and PRN when IVAD not in use. Disp: 2 Syringe Rfl: 50 heparin 100 unit/mL injection Access implanted vascular access device (IVAD) as needed for flush, blood draw or treatment. Before de-accessing port, flush with 10-20ml normal saline and follow with 5 mL heparin (100 units/mL) (if no heparin allergy). De-access port on treatment completion. Disp: 50 mL Rfl: 3 ketoconazole (NIZORAL) 2 % cream Apply 1 application to affected area twice daily. Disp: Rfl: Loperamide HCl (IMODIUM A-D) 2 mg tab Take 2 mg by mouth as needed. Disp: Rfl: promethazine (PHENERGAN) 25 mg tablet Take 0.5-1 tablets by mouth every 6 hours as needed. FOR NAUSEA Disp: 30 tablet Rfl: 2 0.9% NaCl Access implanted vascular access device (IVAD) as needed for flush, blood draw or treatment.Flush IVAD with 10-20 mL NS every 4 weeks and PRN when IVAD not in use. Disp: 2 Syringe Rfl: 50 heparin 100 unit/mL syrg Access implanted vascular access device (IVAD) as needed for flush, blood draw or treatment. Before de-accessing port, flush with 10-20ml normal saline and follow with 5 mL heparin (100 units/mL) (if no heparin allergy). De-access port on treatment completion. Disp: 1 Syringe Rfl: 50 furosemide (LASIX) 20 mg tablet Take 2 tablets by mouth twice daily. Disp: Rfl: montelukast (SINGULAIR) 10 mg tablet Take 1 tablet by mouth daily at bedtime. as needed. Disp: Rfl: 0 FERREX 150 150 mg iron capsule Take 1 capsule by mouth once daily. Disp: Rfl: 0 magnesium oxide (MAG-OX) 400 mg tablet Take 400 mg by mouth twice daily. Disp: Rfl: clotrimazole-betamethasone (LOTRISONE) cream Apply 1 application to affected area twice daily. Disp: 45 g Rfl: 2 acetaminophen (TYLENOL) 500 mg tablet Take 1,000 mg by mouth as needed. Disp: Rfl: diphenhydrAMINE (BENADRYL) 25 mg tablet Take 50 mg by mouth as needed. Disp: Rfl: hydrocortisone valerate (WESTCORT) 0.2 % cream Apply 1 application to affected area three times daily as needed. Disp: Rfl: isosorbide mononitrate ER (IMDUR) 60 mg 24 hr tablet Take 60 mg by mouth once daily. Disp: Rfl: aspirin, enteric coated (ASPIRIN, ENTERIC COATED) 81 mg EC tablet Take 81 mg by mouth once daily. Disp: Rfl: metoprolol tartrate, short acting, (LOPRESSOR) 50 mg tablet Take 50 mg by mouth twice daily. Disp: Rfl: lisinopril (ZESTRIL, PRINIVIL) 10 mg tablet Take 10 mg by mouth once daily. Disp: Rfl: omeprazole (PRILOSEC) 20 mg capsule Take 20 mg by mouth once daily. Disp: Rfl: mometasone (ASMANEX TWISTHALER) 220 mcg (60 doses) aepb Inhale 1 Puff as instructed. Disp: Rfl: cholecalciferol, vitamin D3, (VITAMIN D3) 4,000 unit cap Take 1 tablet by mouth once daily. Disp: Rfl: simvastatin (ZOCOR) 40 mg tablet Take 20 mg by mouth daily at bedtime. Disp: Rfl: nitroglycerin sublingual (NITROSTAT) 0.3 mg SL tablet Dissolve 0.3 mg under the tongue every 5 minutes as needed. Disp: Rfl: albuterol HFA (PROVENTIL HFA) 90 mcg/actuation inhaler Inhale 2 Puffs as instructed every 4 hours as needed. Disp: Rfl: EPINEPHrine 0.15 mg/0.15 mL (1:1,000) auto-injector by INJECTION(UNSPECIFIED PARENTERAL ROUTES) route as needed. Disp: Rfl: loratadine (CLARITIN) 10 mg tablet Take 10 mg by mouth as needed. Disp: Rfl: triamcinolone (KENALOG) 0.025 % cream Apply 1 application to affected area twice daily as needed. Disp: Rfl: No current facility-administered medications for this visit. 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 [employer] Social History Main Topics Smoking status: Never Smoker Smokeless status: Never Used Alcohol use: No Drug use: No Sexual activity: Not Currently Partners with: Male FAMILY HISTORY: FAMILY HISTORY Problem Relation Age of Onset - Heart Mother - Diabetes Mother - Heart Father - Breast Cancer Sister 69 Also had cervix cancer at about age 60 - Breast Cancer Maternal Aunt 70 - Heart Brother [place] REVIEW OF SYMPTOMS: The review of systems data was entered by the nurse and reviewed by me Nursing Notes: Lalo Chavez LPN 12/18/2017 1:23 PM Signed REVIEW OF SYSTEMS: General: The patient NOTES fatigue, denies weight loss, denies weight gain, denies feeling hot, and denies feelings of cold. Eyes: The patient denies glaucoma, NOTES eye injury/surgery, does not wear glasses or contacts. Ear/Nose/Throat: The patient denies allergies, denies hayfever, denies ear infections, and denies bloody noses. Cardiovascular: The patient denies chest pain, denies heart disease, NOTES high blood pressure,NOTES cardiac stent, NOTES prior heart attack, NOTES irregular heart beat, NOTES high cholesterol, denies poor circulation, denies heart failure, other cardiac issues, denies claudication, denies cold feet, denies peripheral arterial stent. Respiratory: The patient NOTES tuberculosis, NOTES pneumonia, NOTES frequent cough, denies pulmonary embolism, NOTES shortness of breath, and denies coughing up blood. Gastrointestinal: The patient denies difficulty swallowing, denies acid reflux, denies ulcers, denies vomiting, denies jaundice/hepatitis, NOTES gallbladder problems, denies black or tarry stools, NOTES hemorrhoids, denies bleeding from rectum, denies diverticulitis, denies constipation, denies diarrhea, denies loss of stool control, and denies hernias. Kidney/Bladder: The patient denies kidney stones, denies urine infections, and denies bloody urine. Skin: The patient denies a history of skin cancer, denies bleeding/changing moles, and denies a history of skin rash. Neurologic: The patient denies a history of epilepsy/convulsions, denies headaches, denies head/spinal injuries, and denies stroke/TIA. Psychiatric: The patient denies psychiatric medications, denies depression, and denies voices, denies substance abuse. Endocrine: The patient denies thyroid disorders, NOTES diabetes, and denies hormonal problems. Hematologic: The patient denies a history of bruising, denies bleeding, and NOTES anemia, denies blood clots. Infections: The patient NOTES a history of measles and mumps, denies rheumatic fever, and denies sexually transmitted diseases. Musculoskeletal: The patient NOTES back pain/injury, denies back problems, denies sciatica, denies knee/foot trouble, NOTES arthritis, or denies gout. When was patient's last Mammogram screening? 2018 Last Colonoscopy: 09/12 Lalo Chavez LPN PHYSICAL EXAMINATION: General: The patient is 77 year old female, well nourished, well hydrated in no acute distress. The patient is oriented to time, place, and person. VITALS: Blood pressure 122/84, pulse 67, weight 99.3 kg (219 lb). Body mass index is 40.06 kg/(m2). HEENT: Normal cephalic, ataumatic, pupils are equally round, sclera are anicteric, mucous membranes are moist, oropharynx is clear. Neck has no masses, asymmetry or lymphadenopathy. Thyroid is unremarkable. Respiratory: Clear to auscultation and percussion. Normal respiratory excursion and pattern. Cardiac: Examination is regular rate and rhythm. Abdominal exam: Soft, nontender, with no palpable masses. No hepatosplenomegaly. No palpable hernias. Rectal exam: exam deferred Extremities: no clubbing, cyanosis or edema. No adenopathy. Breast: Visual inspection reveals no retractions, nipple inversion, or skin changes. Palpation of the right breast reveals no dominant or suspicious masses. Palpation of the left breast reveals still some bruising at the biopsy site but this is slowly resolving. Axillary exam demonstrates no suspicious masses in either the left or right axilla. There is no nipple discharge expressed from either the left or right breast. LABORATORY VALUES: As Noted RADIOLOGIC STUDIES: As Noted Intraoffice ultrasound did demonstrate the area of concern just medial to the left nipple. Assessment IMPRESSION: NIPPLE DISCHARGE - LEFT - ? , INTRADUCTAL PAPILLOMA PLAN: I plan to perform a left side needle localization biopsy/lumpectomy. The planned surgical procedure was discussed extensively with the patient. The risks, benefits, anticipated outcomes and possible complications and alternatives were discussed. My staff has also explained the procedure in understandable terms and the patient was given the option to take printed material concerning the planned procedure. The patient had the opportunity to ask questions concerning the planned procedure. The patient freely consents to the planned procedure. Anticipated Surgical Procedure/ CPT Code: left preoperative ultrasound guided needle placement -00908 EXCISIONAL BREAST BIOPSY - [id number] Anticipated Anesthetic: General Patient weight: Blood pressure 122/84, pulse 67, weight 99.3 kg (219 lb). BMI: Body mass index is 40.06 kg/(m2). Planned antibiotic: clindamycin 600mg IVPB legislative correspondent to OR SCDs needed - Yes E Learning Specialist Needed - No Diagnoses: (N64.52) Nipple discharge (primary encounter diagnosis) Return to Clinic: The patient is instructed to follow-up with me 1 week post operatively. Lc Elmore MD I have reviewed the above history and physical exam. There have been no significant changes Lc Elmore MD 12/18/2017 Letter Text Encounter Status:Closed by LC ELMORE MD on 12/18/17 PROGRESS Observed: 12/18/2017 Status: COMPLETED Source: [place] 9:52 AM [facility] REPOSITORY [facility] ID: [id number] Author: Kandi (Rt) Hector Bruce Service: (none) Author Type: Lithographic Press Feeder Type: Progress Notes Filed: 12/18/2017 9:53 AM Note Text: Radiology Service Progress Note PATIENT NAME: Quyen Coker DATE OF SERVICE: December 18, 2017 TIME: 9:52 AM PATIENT IDENTITY VERIFICATION COMPLETED USING TWO (2) METHODS: Patient confirmed name verbally and Date of . PATIENT GENDER DATA: Female. status: : No status: NO. PATIENT RELEVANT IMPLANT DATA REVIEWED: Not Applicable CONTRAST INDUCED NEPHROPATHY RISK FACTORS: Patient age > 60 years CREATININE: Creatinine Date Value Ref Range Status 12/18/2017 1.40 (H) 0.6 - 1.2 mg/dL Final 12/13/2017 1.20 0.6 - 1.2 mg/dL Final 12/07/2017 1.45 (H) 0.58 - 0.96 mg/dL Final eGFR-All Other Races Date Value Ref Range Status 12/18/2017 37 . Final Comment: eGFR (Estimated GFR) Units of measure: mL/min/1.73 meters squared eGFR is derived from the reexpressed MDRD Study equation using the following parameters: serum creatinine, age, gender and race. The creatinine assay has been calibrated to be traceable to IDMS. An eGFR <60 mL/min/1.73m2 for >3 months is consistent with chronic kidney disease. Refer to KDOQI guidelines for clinical interpretation. In patients with unstable renal function, e.g. those with acute kidney injury, the eGFR may not accurately reflect actual GFR. eGFR- Date Value Ref Range Status 12/18/2017 44 Final P.O.C.T. RESULTS: POC done: Yes, See Lab Tab December 18, 2017 RADIOLOGIST NOTIFIED?: No ALLERGIES: Reviewed and unchanged CONTRAST ALLERGY: NO. PERIPHERAL IV ACCESS: Ambulatory: IV type: Existing peripheral IV utilized, Site assessment: Clean,Dry and Intact, Site disposition Discontinued RADIOLOGY DEPARTMENT: CT; Exam(s) Completed: Chest Abdomen Pelvis SIGNED BY: RT Bogdan December 18, 2017 9:[address] ABD/PEL W IVCON Observed: 12/18/2017 Status: F Source: [place] 9:52 AM [facility] REPOSITORY * * *Final Report* * * DATE OF EXAM: Dec 18 2017 9:52AM [facility] 0530 - CT ABD/PEL W IVCON / PROCEDURE REASON: multiple diagnoses * * * * Physician Interpretation * * * * HISTORY: Metastatic colon carcinoma. Prior resection of hepatic metastasis. TECHNIQUE: Contrast 1: [address] Contrast 2: 50ML Omnipaque [address] Ionizing Radiation: CT Dose Length Product (DLP): 1346 mG*y cm CT Dose Reduction Employed: mAs-kVp adjusted based on patient size-age RESULT: Scans through the abdomen and pelvis are performed following oral and intravenous contrast administration. Comparison is made with 10/10/2017. Scans through the chest are dictated separately. Prior left hepatic lobe resection. Diffuse fatty infiltration of the liver. Lesion within the dome of the liver on image 22 measures 1.6 x 1.2 cm. Decreased from the prior study. No additional or developing focal hepatic abnormality. No splenic abnormality is seen. The adrenal glands and pancreas appear unremarkable. No developing solid renal mass or gross obstructive uropathy. No retroperitoneal lymphadenopathy is seen. No pathologic fluid is identified within the abdomen. There is no evidence of abnormal soft tissue mass. Scans through the pelvis show no evidence of lymphadenopathy or mass. No pathologic fluid is seen. No focal bowel wall abnormality is identified. Degenerative changes are seen throughout the spine. IMPRESSION: Decrease in the size of the hepatic metastatic focus. Fatty liver. No developing suspicious mass or adenopathy otherwise within the abdomen or pelvis. Aerologist: [facility] Transcribe Date/Time: Dec 19 2017 12:47P Dictated by : NICOLAS GIRALDO MD This examination was interpreted and the report reviewed and electronically signed by: NICOLAS GIRALDO MD on Dec 19 2017 12:55PM EST [id number] CT CHEST W IVCON Observed: 12/18/2017 Status: F Source: [place] 9:52 AM [facility] REPOSITORY * * *Final Report* * * DATE OF EXAM: Dec 18 2017 9:52AM [facility] 0539 - CT CHEST W IVCON / PROCEDURE REASON: multiple diagnoses * * * * Physician Interpretation * * * * HISTORY: EXAM: CT chest HISTORY: Metastatic colon carcinoma TECHNIQUE: Contrast 1: [address] Ionizing Radiation: CT Dose Length Product (DLP): 1346 mG*y cm CT Dose Reduction Employed: mAs-kVp adjusted based on patient size-age RESULT: Scans through the abdomen and pelvis are dictated separately. Right lower lobe calcified granuloma is seen. Left upper lobe nodule on image 62 measures 6 mm. Unchanged. No developing additional suspicious nodule or mass. No developing mediastinal, hilar or axillary lymphadenopathy. Stable subcentimeter thyroid nodules. No developing pleural or pericardial fluid. IMPRESSION: Stable left upper lobe pulmonary nodule. No developing additional suspicious nodule or mass. Aerologist: [facility] Transcribe Date/Time: Dec 19 2017 12:56P Dictated by : NICOLAS GIRALDO MD This examination was interpreted and the report reviewed and electronically signed by: NICOLAS GIRALDO MD on Dec 19 2017 1:03PM EST [id number] [id number] ABS GR + CBC Collected: 12/18/2017 Status: F Source: [place] 8:30 AM [facility] REPOSITORY TYPE CODE TESTS RESULT OUT OF REFERENCE UNITS RANGE LAB WWBC 3.70-11.00 k/uL Low [place] WBC 2.08 LAB WRBC 3.90-5.20 m/uL Low [place] RBC 3.06 LAB WHGB 11.5-15.5 g/dL Low [place] Hemoglobin 10.3 LAB WHCT 36.0-46.0 % Low [place] Hematocrit 31.7 LAB WMCV 80.0-100.0 fL [place] High MCV 103.6 LAB WMCH 26.0-34.0 pg [place]ellen MCH 33.7 LAB WMCHC 30.5-36.0 g/dL [place] MCHC 32.5 LAB WRDW 11.5-15.0 % [place] RDW 14.6 LAB WPLT 150-400 k/uL [place] Platelet Cnt 180 LAB WMPV 9.0-12.7 fL [place] MPV 9.5 Result Comment: Test performed at: [facility], [address] [place] [address] Rd[address] [place] [address]. LAB ABGRAN 1.45-7.50 k/uL Low Absol 0.56 Gran Count BMP PLUS FHC Collected: 12/18/2017 Status: F Source: [place] 8:30 AM [facility] REPOSITORY TYPE CODE TESTS RESULT OUT OF REFERENCE UNITS RANGE LAB NA 128-145 mmol/L Sodium 138 LAB K 3.6-5.1 mmol/L Potassium 3.7 LAB CL 98-108 mmol/L Chloride 99 LAB CO2 18-33 mmol/L CO2 30 LAB CRET 0.6-1.2 mg/dL High Creatinine 1.40 LAB BUN 7-22 mg/dL BUN 22 LAB GLU 73-118 mg/dL Glucose High 130 LAB CA 8.0-10.3 mg/dL Calcium, Total 9.2 LAB MG 1.6-2.3 mg/dL Magnesium 1.6 LAB AGAP 9-18 mmol/L Anion Gap 9 LAB GFRAA eGFR- 44 Amer. LAB GFRNAA . eGFR-All Other Races 37 Result Comment: eGFR (Estimated GFR) Units of measure: mL/min/1.73 meters squared eGFR is derived from the reexpressed MDRD Study equation using the following parameters: serum creatinine, age, gender and race. The creatinine assay has been calibrated to be traceable to IDMS. An eGFR <60 mL/min/1.73m2 for >3 months is consistent with chronic kidney disease. Refer to KDOQI guidelines for clinical interpretation. In patients with unstable renal function, e.g. those with acute kidney injury, the eGFR may not accurately reflect actual GFR. HEPATIC FUNCTN PANEL Collected: 12/18/2017 Status: F Source: [place] 8:30 AM [facility] REPOSITORY TYPE CODE TESTS RESULT OUT OF REFERENCE UNITS RANGE LAB ALB 3.9-4.9 g/dL Low Albumin 3.7 LAB TBIL 0.2-1.3 mg/dL Bilirubin, Total 0.4 LAB CBIL <0.2 mg/dL Bilirubin,Conjuga <0.2 maikel LAB ALKP 32-117 U/L Alkaline High Phosphatase 151 LAB AST 13-35 U/L AST 26 LAB ALT 7-38 U/L ALT 28 LAB TP 6.3-8.0 g/dL Protein, Total 6.4 Performed By: #### HFP, CEA #### [facility] [address], [place] [id number] CEA Collected: 12/18/2017 Status: F Source: [place] 8:30 AM [facility] REPOSITORY TYPE CODE TESTS RESULT OUT OF RANGE REFERENCE UNITS LAB CEA 0.0-2.9 ng/mL High CEA 4.9 Result Comment: Test analyzed by the Nicholas DxI method. Performed By: #### HFP, CEA #### [facility] [address] [place] [address], [place] [id number] EMERGENCY DEPARTMENT Observed: 12/13/2017 Status: F Source: HIMROD SUMMARY 4:21 PM [facility] REPOSITORY [facility] Medical Records Department [address] [place] [address] Emergency Department Summary 12/13/17 1315 MR#: [id number] Acct: [id number] Name: QUYEN COKER Rep #: [id number] : 1940 77 From: Robin James MD PCP: Alvarez Mccoy MD Status: DEP ER - ER Visit Summary Date of Service: 12/13/17 Chief Complaint: Vertigo History of Present Illness: The patient is a [address] Bledsoe, Dr. Cage, and Dr. Alvarez Mccoy. She reports this morning approximately 810 she had been standing for a few minutes when she had an episode where she felt very lightheaded and had a sense of movement. This lasted 2-3 minutes. It resolved with sitting down. She reports that approximately 30 minutes later she had tingling in her jaw bilaterally and tightening in the muscles of her jaw. She denies any chest pain or shortness of breath during this. She denies any change in her vision. No numbness or tingling. She does have generalized weakness. Patient is currently on chemotherapy for colon cancer and finished a 3 day course yesterday. She denies any fever. No sore throat. She has a chronic cough is unchanged. No abdominal pain. She has had nausea without vomiting or diarrhea. No dysuria or frequency. Physical Examination: Vitals: Stable. Afebrile. General: Well-nourished and well-developed. Head: Normocephalic atraumatic. Neck: Supple, no lymphadenopathy. No JVD. Nontender. Cardiovascular: Regular rate and rhythm. No murmurs. Respiratory: No respiratory distress. Clear to auscultation bilaterally. Abdominal: Soft, nontender, nondistended, normal bowel sounds. No guarding, rebound, or peritoneal signs. Back: Nontender. Extremities: Nontender, no edema. Skin: Normal color, no rash. Neurologic: Alert and oriented 3. Cranial nerves II through XII are intact. Normal strength and sensation. Psych: Normal affect. Test Results: Patient was seen by Dr. Vasquez in the office prior to arrival and had blood work obtained. CBC was remarkable for a white count of 2.4 and an H AND H 11.0 34.0. Chem-7 is marked for glucose of 242 and BUN 27. Magnesium was normal. In the emergency department EKG was obtained shows atrial fibrillation rate of 60 with no ischemic changes. This was unchanged from September 2017. Troponin was negative. Chest x-ray shows chronic changes. Emergency Department Course and Treatment: Patient had positive orthostatic vital signs here. Heart rate increased from 60-84 with standing and she was lightheaded. Her blood pressure was stable however. She is given a 500 cc bolus of normal saline. Treatment Plan: Patient feels improved and would like to go home. She will be discharged instructions to follow-up Dr. Vasquez as previous scheduled. Follow-up Dr. Alvarez Mccoy in 1-2 days if not improving. Return to the emergency department for any worsening symptoms. Disposition: To home in improved and stable condition. Impression: 1. Orthostatic hypotension. 2. Coagulopathy on Xarelto. 3. Atrial fibrillation. 4. Colon cancer on chemotherapy. This note was generated with [employer] dictation software. It may contain incorrect words, spelling, and punctuation that were not noted in review of the chart prior to signing ED Disposition - Plan for ED Patient: Disposition: Home or Assisted Living Chief Complaint: Dizziness Instructions: ED Hypotension Orthostatic Referrals: Alvarez Mccoy MD [Primary Care Provider] - 1-2 Days if not improving Sujit Vasquez DO [STAFF PHYSICIAN] - Keep Paul appointment What to do if you have Problems For any increased pain, shortness of breath, bleeding, nausea or vomiting, chest pain, or any unexpected problems, contact your Primary Care Provider. Call [facility] ([phone]) or report to the closest Emergency Room. Call 911 if necessary. 12/13/17 1621 <Electronically signed by Robin James MD> Date Robin James MD Cosigner Signature (If Indicated): Date CC: Alvarez Mccoy MD TROPONIN-I Collected: 12/13/2017 Status: F Source: [place] 12:35 PM [facility] REPOSITORY Order Comment: 'TROP' Serial specimen #1, #2, #3, or #4: 1 TYPE CODE TESTS RESULT OUT OF RANGE REFERENCE UNITS LAB L501.4010 <0.06 ng/mL Normal < 0.02 TROPONIN-I Result Comment: TROPONIN-I EXPECTED VALUES <0.05 NEGATIVE 0.06 - 0.59 AT RISK OF PR > OR = 0.60 SUGGEST PR Performed By: #### L501.4010 #### [facility] [address] [place], [address] CHEST 1 VIEW Observed: 12/13/2017 Status: F Source: [place] (PORTABLE) 12:23 PM [facility] REPOSITORY [facility] Imaging Services [place] [address] Chest 1 View (Portable) MR#: [id number] Acct: [id number] Name: QUYEN COKER Rep #: [id number] : 1940 F 77 From: Wang Holt MD PCP: Alvarez Mccoy MD Status: REG ER Study: Chest 1 View (Portable) Date of Exam: 12/13/17 Exam# [id number] Ordering Dr: Robin James MD STUDY: X-RAY CHEST REASON FOR EXAM: Female, 77 years old. Shortness of breath and dizziness. TECHNIQUE: Single AP portable view of the chest. COMPARISON: Comparison is made with prior study dated October 01, 2017. FINDINGS: A right-sided portacatheter is seen with the tip at the junction of the superior vena cava and right atrium. EKG electrodes are seen. Scattered calcified granulomas. There is no demonstrated pleural abnormality. Sternal cerclage wires and vascular clips are present from a prior sternotomy and coronary artery bypass graft procedure (CABG). Normal mediastinum and vivek. Normal visualized pulmonary arteries. There is atherosclerotic calcification of the aortic arch with tortuosity. There are diffuse degenerative changes of the visualized thoracic spine. Normal visualized ribs, clavicles, and shoulders. There is no demonstrated abnormality of the visualized soft tissue structures of the upper abdomen. RAD/Chest 1 View (Portable) IMPRESSION: No acute adenopathy is seen. Electronically Signed: Wang Holt MD at 12:58 EDT Tel [phone], Service support , CC: Alvarez Mccoy MD; Robin James MD Aerologist: Signed [facility] Collected: 12/13/2017 Status: F Source: [place] 10:39 AM [facility] REPOSITORY TYPE CODE TESTS RESULT OUT OF REFERENCE UNITS RANGE LAB WWBC 3.70-11.00 k/uL Low [place] WBC 2.40 LAB WRBC 3.90-5.20 m/uL Low [place] RBC 3.27 LAB WHGB 11.5-15.5 g/dL Low [place] Hemoglobin 11.0 LAB WHCT 36.0-46.0 % Low [place] Hematocrit 34.0 LAB WMCV 80.0-100.0 fL [place] High MCV 104.0 LAB WMCH 26.0-34.0 pg [place] MCH 33.6 LAB WMCHC 30.5-36.0 g/dL [place] MCHC 32.4 LAB WRDW 11.5-15.0 % [place] High RDW 15.5 LAB WPLT 150-400 k/uL [place] Platelet Cnt 171 LAB WMPV 9.0-12.7 fL [place] MPV 9.6 Result Comment: Test performed at: [address] [place] [address]. [facility] Collected: 12/13/2017 Status: F Source: [place] 10:39 AM [facility] REPOSITORY TYPE CODE TESTS RESULT OUT OF REFERENCE UNITS RANGE LAB NA 128-145 mmol/L Sodium 136 LAB K 3.6-5.1 mmol/L Potassium 3.6 LAB CL 98-108 mmol/L Chloride 98 LAB CO2 18-33 mmol/L CO2 29 LAB CRET 0.6-1.2 mg/dL Creatinine 1.20 LAB BUN 7-22 mg/dL BUN High 27 LAB GLU 73-118 mg/dL Glucose High 242 LAB CA 8.0-10.3 mg/dL Calcium, Total 9.2 LAB MG 1.6-2.3 mg/dL Magnesium 1.8 LAB AGAP 9-18 mmol/L Anion Gap 9 LAB GFRAA eGFR- 53 Amer. LAB GFRNAA . eGFR-All Other Races 44 Result Comment: eGFR (Estimated GFR) Units of measure: mL/min/1.73 meters squared eGFR is derived from the reexpressed MDRD Study equation using the following parameters: serum creatinine, age, gender and race. The creatinine assay has been calibrated to be traceable to IDMS. An eGFR <60 mL/min/1.73m2 for >3 months is consistent with chronic kidney disease. Refer to KDOQI guidelines for clinical interpretation. In patients with unstable renal function, e.g. those with acute kidney injury, the eGFR may not accurately reflect actual GFR. PROGRESS Observed: 12/07/2017 Status: COMPLETED Source: [place] 2:36 PM [facility] REPOSITORY HNO ID: [id number] Author: Sujit Vasquez Service: (none) Author Type: Physician Type: Progress Notes Filed: 12/07/2017 2:57 PM Note Text: Diagnosis: 1) Metastatic colon cancer. KRAS - No variant detected [Reference sequence: (NM_004985.4)]. NRAS - No variant detected [Reference sequence: (NM_002524.4)]. BRAF - No variant detected [Reference sequence: (NM_004333.4)]. 2) DCIS. 3) IMV thrombus. 4) DVT. HPI: The patient is a 77 yo female with a PMH significant for hyperlipidemia, HTN, CAD (PR, CABG x2 2011; stent x1 2013), PVD (carotid artery stenosis s/p CEA left side 2012), sleep apnea (uses CPAP), arthritis (chronic lower back and from lower thoracic area to the neck pain). She developed rectal bleeding in March and underwent evaluation with EGD. Evidently that study was normal. Next underwent colonoscopy and was observed to have a tumor in the cecum. Had normal colonoscopy about 2 years prior. Underwent right hemicolectomy 07/28/2015. 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 Through muscularis propria into subserosal adipose tissue, but not extending to the serosal surface. All margins negative. No lymphovascular invasion. No perineural invasion. No tumor deposits. None of 14 nodes positive. No evidence MSI by IHC. Had screening mammogram 08/2015. Abnormality left breast. Dx mammo and US 09/06/2015. 6.5 x 7.9 mm nodular density with focal calcifications in fthe slightly upper lateral portion of the left breast. Underwent stereotactic core biopsy 09/15/2015. DCIS, cribriform and solid, grade 2, single cell necrosis; no invasive carcinoma. MRI of the breast 10/11/2015: Longitudinally oriented area of mild enhancement in the central left breast thought to be due to postbiopsy hemorrhage/inflammation. Tumor along this entire length is thought less likely but cannot be excluded. MRI of the abdomen and pelvis 10/13/2015: Liver: There is a large, heterogeneously enhancing mass within the entire lateral segment of the left hepatic lobe and extending into the medial segment as well. This mass measures approximately 8.2 x 5.8 x 6.3 cm. This is most consistent with neoplasm, perhaps metastatic given the patient's history of colonic carcinoma. No additional hepatic lesions are seen. There is patchy hepatic fatty change throughout the right hepatic lobe. Partial, nonocclusive thrombus within the superior mesenteric vein just cephalad to its 1st branch. Liver biopsy--consistent with colorectal primary. Patient received the fourth cycle chemotherapy on 12/22/2015. She developed profuse diarrhea and presented to the emergency department for dehydration and shortness of breath. She was found to be an RVR atrial fibrillation with significant hypomagnesemia. She was admitted and started on IV hydration and magnesium replacement as well as medical management of atrial fibrillation. The diarrhea however continued for several more days during which she was given supportive care. Following that she developed an episode of ileus which extend her hospital stay. She was eventually discharged to rehabilitation. This morning she underwent an ultrasound of both lower extremities. She was found to have an acute DVT in the right common femoral vein. Treated with apixaban. Underwent left-sided lumpectomy for DCIS. Specimen - partial breast Procedure - excision with wire-guided localization Lymph node sampling ? no lymph nodes present Specimen integrity - single intact specimen Specimen size ? 15 x 9 x 4 cm Specimen laterality ? left Tumor site ? not specified Size (extent) of DCIS ? 0.3 cm in greatest dimension. See comment. 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 Architectural pattern - cribriform Nuclear grade - grade 2 (intermediate) Necrosis ? not identified Margins ? margin uninvolved by ductal carcinoma in situ. The tumor is 2 cm away from the closest anterior and posterior margins Treatment effect - no known presurgical therapy. Lymph nodes ? not submitted Distant metastasis ? not replicable Additional Pathologic Findings ? fibrocystic changes. - Focal changes consistent with previous biopsy site. Previous therapy: 1) FOLFOX x1; FOLFOX with Vectibix x3. 2) Underwent left hepatectomy 04/28/2016. Final pathology reviewed. Positive margin was cauterized during surgery. 3) Xeloda. Started cycle #3 11/27/2016 through 02/2017. 4) Infusional 5-fluorouracil with oxaliplatin on diagnosis metastases lung. Current therapy: 1) FOLFIRI. Presents for ongoing oncologic management--evaluation for cycle 2. Interim history: Doing well with dose reduction. No diarrhea this cycle. No abd pain or jaundice. Coughing much less. No wheeze or chest tightness. PMH, medications and allergies as below personally reviewed by me today. Any changes documented in appropriate section. ROS: Constitutional: Denies episodes of fever and night sweats. Neuro: Denies vertigo and dizziness. HEENT: No recent change in voice, vision or hearing (significant b/l hearing loss--stable). Resp: See above. CVS: Denies exertional chest pain, PND, orthopnea. GI: See above. : No dysuria or gross hematuria. Stress incontinence stable. Endo: Denies hot flashes. Denies polyuria and polydipsia. Denies heat and cold intolerance. Musculoskeletal: Denies bone, back, joint and muscular pain. Derm: Denies rash. Denies diffuse pruritis. Heme: No unusual bleeding and/or unexplained bruising. Psych: Normal mood. PHYSICAL EXAM: Vitals: Blood pressure 103/54, pulse 92, temperature 36.6 ?C (97.8 ?F), weight 97.8 kg (215 lb 8 oz). Well-appearing and in no acute distress. EYES: Sclerae are anicteric bilaterally. NECK: Supple. No enlargement of thyroid. LYMPHATIC: There is no palpable cervical, supraclavicular adenopathy. RESPIRATORY: Inspiratory breath sounds are of diminished intensity in all pedersen and remain clear with no rhonchi or wheeze currently. CARDIOVASCULAR: Rhythm is irregular today. ABDOMEN: The abdomen is nondistended and non-tender. Extremities: Free of edema. SKIN: No jaundice or rash. No petechiae. NEUROLOGIC: foil cutter II-XII are grossly intact. No focal motor weakness. ASSESSMENT/PLAN: (C18.2) Malignant neoplasm of ascending colon (HCC) (primary encounter diagnosis) (C78.7) Liver metastasis (HCC) Assessment: -Patient had completed several months of capecitabine following resection for an isolated metastasis. She tolerated capecitabine only marginally and was on lower doses for the last couple cycles. She had marked difficulty with diarrhea, dehydration and several hospitalizations/ER visits for toxicity. However, lung nodule had been stable. 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 -First cycle was complicated by port line rupture. 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 -Tolerating FOLFIRI very well at current doses. Plan: -Okay for chemotherapy on Sunday. -CT prior to cycle #4. 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 Plan: -Continue Xarelto. 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 Plan: -Will need biopsy. Sujit Vasquez DO CNOVSP Observed: 12/07/2017 Status: COMPLETED Source: [place] 2:30 PM [facility] REPOSITORY Visit (SP) Office ([place]) QUYEN COKER ([id number]) 1940 F T Date Time Provider Department 12/07/17 2:30 PM SUJIT VASQUEZ During your visit today, we recorded the following information about you: Temperature Pulse Blood pressure Weight 97.8 degrees 92/minute 103/54 97.8 kg Abbie Ribeiro LPN 12/07/2017 2:43 PM Signed Est patient. Discuss recent labs and CT scan. Treatment on Sunday. Abbie Vasquez DO 12/07/2017 2:57 PM Signed Diagnosis: 1) Metastatic colon cancer. KRAS - No variant detected [Reference sequence: (NM_004985.4)]. NRAS - No variant detected [Reference sequence: (NM_002524.4)]. BRAF - No variant detected [Reference sequence: (NM_004333.4)]. 2) DCIS. 3) IMV thrombus. 4) DVT. HPI: The patient is a 77 yo female with a PMH significant for hyperlipidemia, HTN, CAD (PR, CABG x2 2011; stent x1 2013), PVD (carotid artery stenosis s/p CEA left side 2012), sleep apnea (uses CPAP), arthritis (chronic lower back and from lower thoracic area to the neck pain). She developed rectal bleeding in March and underwent evaluation with EGD. Evidently that study was normal. Next underwent colonoscopy and was observed to have a tumor in the cecum. Had normal colonoscopy about 2 years prior. Underwent right hemicolectomy 07/28/2015. 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 Through muscularis propria into subserosal adipose tissue, but not extending to the serosal surface. All margins negative. No lymphovascular invasion. No perineural invasion. No tumor deposits. None of 14 nodes positive. No evidence MSI by IHC. Had screening mammogram 08/2015. Abnormality left breast. Dx mammo and US 09/06/2015. 6.5 x 7.9 mm nodular density with focal calcifications in fthe slightly upper lateral portion of the left breast. Underwent stereotactic core biopsy 09/15/2015. DCIS, cribriform and solid, grade 2, single cell necrosis; no invasive carcinoma. MRI of the breast 10/11/2015: Longitudinally oriented area of mild enhancement in the central left breast thought to be due to postbiopsy hemorrhage/inflammation. Tumor along this entire length is thought less likely but cannot be excluded. MRI of the abdomen and pelvis 10/13/2015: Liver: There is a large, heterogeneously enhancing mass within the entire lateral segment of the left hepatic lobe and extending into the medial segment as well. This mass measures approximately 8.2 x 5.8 x 6.3 cm. This is most consistent with neoplasm, perhaps metastatic given the patient's history of colonic carcinoma. No additional hepatic lesions are seen. There is patchy hepatic fatty change throughout the right hepatic lobe. Partial, nonocclusive thrombus within the superior mesenteric vein just cephalad to its 1st branch. Liver biopsy--consistent with colorectal primary. Patient received the fourth cycle chemotherapy on 12/22/2015. She developed profuse diarrhea and presented to the emergency department for dehydration and shortness of breath. She was found to be an RVR atrial fibrillation with significant hypomagnesemia. She was admitted and started on IV hydration and magnesium replacement as well as medical management of atrial fibrillation. The diarrhea however continued for several more days during which she was given supportive care. Following that she developed an episode of ileus which extend her hospital stay. She was eventually discharged to rehabilitation. This morning she underwent an ultrasound of both lower extremities. She was found to have an acute DVT in the right common femoral vein. Treated with apixaban. Underwent left-sided lumpectomy for DCIS. Specimen - partial breast Procedure - excision with wire-guided localization Lymph node sampling ? no lymph nodes present Specimen integrity - single intact specimen Specimen size ? 15 x 9 x 4 cm Specimen laterality ? left Tumor site ? not specified Size (extent) of DCIS ? 0.3 cm in greatest dimension. See comment. 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 Architectural pattern - cribriform Nuclear grade - grade 2 (intermediate) Necrosis ? not identified Margins ? margin uninvolved by ductal carcinoma in situ. The tumor is 2 cm away from the closest anterior and posterior margins Treatment effect - no known presurgical therapy. Lymph nodes ? not submitted Distant metastasis ? not replicable Additional Pathologic Findings ? fibrocystic changes. - Focal changes consistent with previous biopsy site. Previous therapy: 1) FOLFOX x1; FOLFOX with Vectibix x3. 2) Underwent left hepatectomy 04/28/2016. Final pathology reviewed. Positive margin was cauterized during surgery. 3) Xeloda. Started cycle #3 11/27/2016 through 02/2017. 4) Infusional 5-fluorouracil with oxaliplatin on diagnosis metastases lung. Current therapy: 1) FOLFIRI. Presents for ongoing oncologic management--evaluation for cycle 2. Interim history: Doing well with dose reduction. No diarrhea this cycle. No abd pain or jaundice. Coughing much less. No wheeze or chest tightness. PMH, medications and allergies as below personally reviewed by me today. Any changes documented in appropriate section. ROS: Constitutional: Denies episodes of fever and night sweats. Neuro: Denies vertigo and dizziness. HEENT: No recent change in voice, vision or hearing (significant b/l hearing loss--stable). Resp: See above. CVS: Denies exertional chest pain, PND, orthopnea. GI: See above. : No dysuria or gross hematuria. Stress incontinence stable. Endo: Denies hot flashes. Denies polyuria and polydipsia. Denies heat and cold intolerance. Musculoskeletal: Denies bone, back, joint and muscular pain. Derm: Denies rash. Denies diffuse pruritis. Heme: No unusual bleeding and/or unexplained bruising. Psych: Normal mood. PHYSICAL EXAM: Vitals: Blood pressure 103/54, pulse 92, temperature 36.6 ?C (97.8 ?F), weight 97.8 kg (215 lb 8 oz). Well-appearing and in no acute distress. EYES: Sclerae are anicteric bilaterally. NECK: Supple. No enlargement of thyroid. LYMPHATIC: There is no palpable cervical, supraclavicular adenopathy. RESPIRATORY: Inspiratory breath sounds are of diminished intensity in all pedersen and remain clear with no rhonchi or wheeze currently. CARDIOVASCULAR: Rhythm is irregular today. ABDOMEN: The abdomen is nondistended and non-tender. Extremities: Free of edema. SKIN: No jaundice or rash. No petechiae. NEUROLOGIC: foil cutter II-XII are grossly intact. No focal motor weakness. ASSESSMENT/PLAN: (C18.2) Malignant neoplasm of ascending colon (HCC) (primary encounter diagnosis) (C78.7) Liver metastasis (HCC) Assessment: -Patient had completed several months of capecitabine following resection for an isolated metastasis. She tolerated capecitabine only marginally and was on lower doses for the last couple cycles. She had marked difficulty with diarrhea, dehydration and several hospitalizations/ER visits for toxicity. However, lung nodule had been stable. 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 -First cycle was complicated by port line rupture. 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 -Tolerating FOLFIRI very well at current doses. Plan: -Okay for chemotherapy on Sunday. -CT prior to cycle #4. 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 Plan: -Continue Xarelto. 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 Plan: -Will need biopsy. Sujit Vasquez DO Referring Provider: SUJIT VASQUEZ [[id number]] Allergies As of Date: 12/07/2017 Noted Allergy Reaction CORGARD (NADOLOL) 07/21/2015 12 - Shortness of Breath PENN 07/21/2015 12 - Shortness of Breath MORPHINE 07/21/2015 12 - Shortness of Breath Comments: Pt says she can tolerate oxycodone. PENICILLINS 07/21/2015 12 - Shortness of Breath PERFUMES 12/07/2017 12 - Shortness of Breath PRAVACHOL (PRAVASTATIN) 07/21/2015 12 - Shortness of Breath SULFITE 07/21/2015 12 - Shortness of Breath Comments: Sulfites in food. Verified by refrigerator tester. ZOCOR (SIMVASTATIN) 07/21/2015 12 - Shortness of Breath Comments: Pt reports allergy to brand Zocor, tolerates generic. Date Reviewed: 12/07/2017 Reviewed by: Caitlin Moore, RN, RN - Fully Assessed Reason for Visit: Established Patient [175] Primary Visit Diagnosis:Malignant neoplasm of ascending colon (HCC) [C18.2] Other Visit Diagnosis:Mesenteric vein thrombosis [I81] Follow-up and Disposition History Recorded Prescriptions as of 12/07/2017 Sig: [id number]* Take 10 mL by mouth every 4 h* POTASSIUM CHLORIDE 20 MEQ ORA* Take 20 mEq by mouth once wyatt* RIVAROXABAN 15 MG TABLET Take 1 tablet by mouth daily * Patient taking differently: Take by mouth daily with dinn* ONDANSETRON HCL 8 MG TABLET Take 1 tablet by mouth every * LIDOCAINE-PRILOCAINE 2.5 %-2.* Apply 1 application to affect* SODIUM CHLORIDE 0.9% FLUSH Access implanted vascular acc* HEPARIN, PORCINE (PF) 100 UNI* Access implanted vascular acc* LOPERAMIDE 2 MG TABLET Take 2 mg by mouth as needed. SODIUM CHLORIDE 0.9% FLUSH Access implanted vascular acc* HEPARIN LOCK FLUSH (PORCINE) * Access implanted vascular acc* FUROSEMIDE 20 MG TABLET Take 2 tablets by mouth twice* MONTELUKAST 10 MG TABLET Take 1 tablet by mouth daily * MAGNESIUM OXIDE 400 MG TABLET Take 400 mg by mouth twice da* ACETAMINOPHEN 500 MG TABLET Take 1,000 mg by mouth as nee* DIPHENHYDRAMINE 25 MG TABLET Take 50 mg by mouth as needed. ISOSORBIDE MONONITRATE ER 60 * Take 60 mg by mouth once wilman* ASPIRIN 81 MG TABLET,DELAYED * Take 81 mg by mouth once wilman* METOPROLOL TARTRATE 50 MG TAB* Take 50 mg by mouth twice wyatt* LISINOPRIL 10 MG TABLET Take 10 mg by mouth once wilman* OMEPRAZOLE 20 MG CAPSULE,MELODY* Take 20 mg by mouth once wilman* MOMETASONE 220 MCG (60 DOSES)* Inhale 1 Puff as instructed. CHOLECALCIFEROL (VITAMIN D3) * Take 1 tablet by mouth once d* SIMVASTATIN 40 MG TABLET Take 20 mg by mouth daily at * NITROGLYCERIN 0.3 MG SUBLINGU* Dissolve 0.3 mg under the ton* ALBUTEROL SULFATE HFA 90 MCG/* Inhale 2 Puffs as instructed * EPINEPHRINE 0.15 MG/0.15 ML I* by INJECTION(UNSPECIFIED PARE* LORATADINE 10 MG TABLET Take 10 mg by mouth as needed. PREDNISONE 10 MG TABLET Take 1 tablet twice the day b* KETOCONAZOLE 2 % TOPICAL CREAM Apply 1 application to affect* PROMETHAZINE 25 MG TABLET Take 0.5-1 tablets by mouth e* FERREX 150 MG IRON CAPSULE Take 1 capsule by mouth once * CLOTRIMAZOLE-BETAMETHASONE 1 * Apply 1 application to affect* HYDROCORTISONE VALERATE 0.2 %* Apply 1 application to affect* TRIAMCINOLONE ACETONIDE 0.025* Apply 1 application to affect* Problem List As Of Date 12/07/2017 Noted Resolved Malignant neoplasm of ascending colon (HCC) [C1*INVALID FOR* Abnormal mammogram of left breast [R92.8] INVALID FOR* 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] INVALID FOR* Abnormal magnetic resonance imaging of liver [R*INVALID FOR* Liver metastasis (HCC) [C78.7] INVALID FOR* Diabetes (HCC) [E11.9] INVALID FOR* Hearing loss [H91.90] INVALID FOR* Hypertension [I10] INVALID FOR* Hyperlipidemia [E78.5] INVALID FOR* Carotid artery disease (HCC) [I77.9] INVALID FOR* Coronary artery disease [I25.10] INVALID FOR* Asthma [J45.909] INVALID FOR* Sleep apnea [G47.30] INVALID FOR* Arthritis [M19.90] INVALID FOR* Fibromyalgia [M79.7] INVALID FOR* Atrial arrhythmia [I49.8] INVALID FOR* H/O degenerative disc disease [Z87.39] INVALID FOR* Spondylolysis [M43.00] INVALID FOR* Radiculopathy [M54.10] INVALID FOR* Eczema [L30.9] INVALID FOR* Anemia [D64.9] INVALID FOR* 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*INVALID FOR* Colon cancer (HCC) [C18.9] Visit Notes: >> Abbie Ribeiro LPN SunDec 07, 2017 2:26 PM Status: Signed Est patient. Discuss recent labs and CT scan. Treatment on Sunday. Abbie Ribeiro LPN Encounter Status:Closed by SUJIT VASQUEZ DO on 12/07/17 COMP METABOLIC PANEL Collected: 12/07/2017 Status: F Source: [place] 2:23 PM [facility] [place] REPOSITORY TYPE CODE TESTS RESULT OUT OF REFERENCE UNITS RANGE LAB TP 6.3-8.0 g/dL Protein, Total 6.6 LAB ALB 3.9-4.9 g/dL Low Albumin 3.8 LAB CA 8.5-10.2 mg/dL Calcium, Total 8.9 LAB TBIL 0.2-1.3 mg/dL Bilirubin, Total 0.5 LAB ALKP 32-117 U/L Alkaline High Phosphatase 157 LAB AST 13-35 U/L AST 30 LAB GLU 74-99 mg/dL Glucose High 173 Result Comment: The British Diabetes Association (ADA) provides guidance for cutoff values for fasting glucose and random glucose. The ADA defines fasting as no caloric intake for at least 8 hours. Fas ting plasma glucose results between 100 to 125 mg/dL indicate increased risk for diabetes (prediabetes). Fasting plasma glucose results greater than or equal to 126 mg/dL meet the criteria for diagnosis of diabetes. In the absence of unequivocal hyperglycemia, results should be confirmed by repeat testing. In a patient with classic symptoms of hyperglycemia or hyperglycemic crisis, random plasma glucose results greater than or equal to 200 mg/dL meet the criteria for diagnosis of diabetes. Reference: Standards of Medical Care in Diabetes 2016, British Diabetes Association. Diabetes Care. 2016.39(Suppl 1). LAB BUN 7-21 mg/dL BUN High 26 LAB CRET 0.58-0.96 mg/dL Creatinine High 1.45 LAB NA 136-144 mmol/L Sodium 138 LAB K 3.7-5.1 mmol/L Potassium 4.4 LAB CL 97-105 mmol/L Chloride 99 LAB CO2 22-30 mmol/L CO2 25 LAB AGAP 9-18 mmol/L Anion Gap 14 LAB ALT 7-38 U/L ALT 25 LAB GFRAA eGFR- Amer. 43 LAB GFRNAA . eGFR-All Other Races 35 Result Comment: eGFR (Estimated GFR) Units of measure: mL/min/1.73 meters squared eGFR is derived from the reexpressed MDRD Study equation using the following parameters: serum creatinine, age, gender and race. The creatinine assay has been calibrated to be traceable to IDMS. An eGFR <60 mL/min/1.73m2 for >3 months is consistent with chronic kidney disease. Refer to KDOQI guidelines for clinical interpretation. In patients with unstable renal function, e.g. those with acute kidney injury, the eGFR may not accurately reflect actual GFR. Performed By: #### CMP, CEA #### [facility] [address] [place], [place] [id number] CEA Collected: 12/07/2017 Status: F Source: [place] 2:23 PM [facility] REPOSITORY TYPE CODE TESTS RESULT OUT OF RANGE REFERENCE UNITS LAB CEA 0.0-2.9 ng/mL High CEA 4.4 Result Comment: Test analyzed by the [place] DxI method. Performed By: #### CMP, CEA #### [facility] [address] [place], [place] [id number] [place] ABS GR + CBC Collected: 12/07/2017 Status: F Source: [place] 2:22 PM [facility] REPOSITORY TYPE CODE TESTS RESULT OUT OF REFERENCE UNITS RANGE LAB WWBC 3.70-11.00 k/uL Low [place] WBC 3.59 LAB WRBC 3.90-5.20 m/uL Low [place] RBC 3.14 LAB WHGB 11.5-15.5 g/dL Low [place] Hemoglobin 10.8 LAB WHCT 36.0-46.0 % Low [place] Hematocrit 31.8 LAB WMCV 80.0-100.0 fL [place] High MCV 101.3 LAB WMCH 26.0-34.0 pg [place] High MCH 34.4 LAB WMCHC 30.5-36.0 g/dL [place] MCHC 34.0 LAB WRDW 11.5-15.0 % [place] High RDW 15.7 LAB WPLT 150-400 k/uL [place] Platelet Cnt 193 LAB WMPV 9.0-12.7 fL [place] MPV 9.8 Result Comment: Test performed at: [facility] [place], [address] [place], [place] [address]. LAB ABGRAN 1.45-7.50 k/uL Absol Gran 1.82 Count PROGRESS Observed: 11/24/2017 Status: COMPLETED Source: [place] 5:56 AM [facility] [place] REPOSITORY HNO ID: [id number] Author: Lc Elmore Service: (none) Author Type: Physician Type: Progress Notes Filed: 11/24/2017 6:02 AM Note Text: FOLLOW UP VISIT - POST LEFT STEREOTACTIC GUIDED CORE BIOPSY NAME: Quyen Coker [facility] NO.: [id number] DATE OF SERVICE: 11/22/2017 : 1940 REFERRING PHYSICIAN: Alvarez Mccoy MD Quyen is a patient I am following for left medial breast microcalcifications, 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 She returns here for follow-up of her breast related issues. 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 Her complicated history is as follows: The patient is a 74 year old female with a complaint of rectal bleeding and anemia. The patient initially underwent upper endoscopy which demonstrated no obvious source. The patient underwent colonoscopy by Dr. Chuck Penn on July 13 which demonstrated a fungating mass at the cecum ascending colon junction. Pathology returned as invasive adenocarcinoma. The patient is being seen by me today at the request of Dr. Penn for my opinion and advice regarding right colon cancer. The patient has a history of coronary disease and carotid stenosis. She has been on Plavix which was on hold after her endoscopy and prior to her surgical procedure. Additionally, she had undergone previous left carotid endarterectomy. Patient was recently evaluated by her metal patternmaker, Dr. Sujit Maya. She had undergone coronary bypass grafting in 2011 and is status post an LAD and left circumflex stent placement in November 2013. 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 She has good left ventricular ejection fraction. It was felt she was an acceptable risk for surgical intervention and did not require further preoperative cardiac diagnostic studies. I performed a laparoscopic right hemicolectomy on July 28, 2015. The pathology demonstrated: The tumor's size was 3.0x2.6.1.0 cm. Macroscopic tumor perforation was not identified. Histologic type: adenocarcinoma Histologic Grade: Low grade Histologic features for microsatellite instability - Intratumoral lymphocytic response: Mild to moderate Peritumoral lymphocytic response: Crohn's like lymphoid response: None Tumor subtype and differentiation: Not applicable MIcroscopic tumor extension: tumor invades through muscularis propria into subserosal adipose Lymphovascular invasion: None Perineural invasion: None Surgical margins were free of disease. Lymph nodes examined: 14 Lymph nodes involved: 0 PATHOLOGIC STAGE: pT 3, pN 0, M 0 Quyen noted loose stools had been continuing for the past few days at her August 15 follow-up. She has been maintaining a low residue diet. She also notes very transient dizziness. Post operative pain has been well controlled. The patient notes nausea. The patient`s appetite has been average. She was admitted to the hospital on August 22 with further looser stools and dizziness and some dehydration. Stool cultures were obtained which demonstrated no abnormalities. She was started on probiotics and Imodium and this significantly improved her stool frequency. She notes that at this point in time, her stools remain somewhat green but are less loose than they were. Overall she states her appetite still remains fair. She also notes that she is having issues of persistent nausea. She noted that this seemed similar to this as she had had in the past and was evaluated by Dr. Penn with upper endoscopy which was apparently unremarkable. The patient has been on a 20 mg Prilosec dose for some time. She notes that her nausea symptoms improve if she takes Maalox. The patient still is complaining of episodic transient dizziness that is worse if she raises up more quickly. Additionally, the patient underwent a recent follow-up mammogram. This was read as demonstrating a 8 mm mass with microcalcifications in her left breast. It was recommended biopsy listed BI-RADS Category 4. The patient did not have ultrasound performed. She irregularly performs a self breast exam and notes overall lumpy breasts but denies any specific changes. She denies skin changes, nipple discharge, or other difficulties. She had a previous mammogram that did demonstrate some microcalcifications similar mass. I obtained a CT scan of the abdomen and pelvis. This demonstrated no intra-abdominal abnormalities and demonstrated the anastomosis to have no signs of leakage inflammation or abscess which I felt could've been concerning for her abdominal complaints. There was noted to be in an area of asymmetric contrast enhancement in the liver which seemed to go away in delayed films. There were a list of possible options for this and MRI was recommended as an option. The patient had a previous CT scan preop which demonstrated similar findings from my standpoint and intraoperatively had no abnormalities noted in this location at the liver surface. I felt it was not necessary to have an MRI. Dr. Vasquez evaluated the patient and was concerned of those findings and recommended an MRI be obtained. The patient has since seen her primary care physician. Her oral hypoglycemic medication was stopped which has both cured her dizziness symptoms and her epigastric/nausea symptoms. We also obtained ultrasound which demonstrates no specific abnormalities in her left breast I performed a left side stereotactic biopsy for her abnormal mammogram on September 15, 2014. The pathology returned as DCIS. The patient notes some resolution of the bruising since the procedure but now notes a mass that worries her at the biopsy site. 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 Nuclear Grade - 2 (intermediate). Necrosis - present, single cell necrosis. Calcifications - present. Additional findings - focal fibrocystic changes. Negative for invasive carcinoma in the submitted specimen. I plan to obtain an MRI to assess her breast for additional or more extended pathology. MRI of the breast returned as: IMPRESSION: KNOWN BIOPSY PROVEN MALIGNANCY Longitudinally oriented area of mild enhancement in the central left breast thought to be due to postbiopsy hemorrhage/inflammation. Tumor along this entire length is thought less likely but cannot be excluded. Brandee condon/giovanny:10/12/2015 12:43:57 Cash Room Clerk: [facility]issa [facility] letter sent: Category 6 MRI BI-RADS: 6 Known biopsy proven malignancy Aerologist: VIDYA Transcribe Date/Time: Oct 12 2015 12:43P Dictated by : BRANDEE AYALA MD This examination was interpreted and the report reviewed and electronically signed by: BRANDEE AYALA MD On Oct 12 2015 12:43PM Results-Findings * * *Final Report* * * DATE OF EXAM: Oct 11 2015 9:45AM [facility] [id number] - MRI BREAST YAN WWO / PROCEDURE REASON: DCIS (D05.10), ABNORMAL MAMMOGRAM OF LEFT BREAST (R92.8) * * * * Physician Interpretation * * * * #[id number] - MRI BREAST YAN [facility] BREAST MRI OF BOTH BREASTS : 10/11/2015 HISTORY: Dcis (D05.10), Abnormal Mammogram Of Left Breast (R92.8). RESULT: No prior exams were available for comparison. Interpretation of this MRI was correlated with available mammograms. Gadolinium contrast calibrated to patient weight was injected. Axial T1, T2, pre and post contrast T1, and coronal images were obtained with a dedicated breast coil. The breasts are mostly fatty bilaterally. No mass, architectural distortion or abnormal enhancement is seen in the right breast. In the mid central right breast, centered just above the nipple is a longitudinal area of mild increased progressive enhancement. This is in the vicinity of recent biopsy. There is susceptibility artifact. However, the length of abnormal enhancement is much greater than the targeted lesion measuring approximately 4 cm in craniocaudal dimension. Maximal AP dimension is approximately 1.7 cm and maximal transverse dimension 1.3 cm. This abnormal enhancement could be biopsy related, perhaps representing postbiopsy hemorrhage/inflammation. No other areas of abnormal enhancement or architectural distortion are seen. There are no abnormalities seen in the axillary nodes region or infraclavicular nodes. The patient's abdominal MRI returned as: IMPRESSION: Large left hepatic lobe lesion, neoplastic in appearance and likely metastatic from the patient's known colonic CA. Partial SMV thrombus. COMMUNICATION: Communicated with: SUJIT Hernandez 10/13/2015 12:20 PM. Aerologist: [facility] Transcribe Date/Time: Oct 13 2015 12:26P Dictated by : BRANDEE AYALA MD This examination was interpreted and the report reviewed and electronically signed by: BRANEDE AYALA MD On Oct 13 2015 12:26PM Results-Findings * * *Final Report* * * DATE OF EXAM: Oct 13 2015 9:35AM [facility] [id number] - MRI ABDOMEN [facility] CONTRAST / PROCEDURE REASON: abnormal ct of lever r93.2 malignant neoplasm of ascending colon c18.2 dcia lef * * * * Physician Interpretation * * * * RESULT: MRI of the abdomen without and with intravenous contrast HISTORY: abnormal ct of lever r93.2 malignant neoplasm of ascending colon c18.2 dcis left TECHNIQUE: Using the torso phased array coil, axial STIR, T1 weighted in- and [id number] and coronal HASTE images were obtained. Flow sensitive imaging through the portal vein was performed, as well. Then, using a 3-D GRE T1 weighted sequence, dynamic images were obtained before, during and after the administration of 19ml cc intravenous Dotarem. Comparison: None FINDINGS: Liver: There is a large, heterogeneously enhancing mass within the entire lateral segment of the left hepatic lobe and extending into the medial segment as well. This mass measures approximately 8.2 x 5.8 x 6.3 cm. This is most consistent with neoplasm, perhaps metastatic given the patient's history of colonic carcinoma. No additional hepatic lesions are seen. There is patchy hepatic fatty change throughout the right hepatic lobe. Biliary tract: The common bile duct is normal in course and caliber. No filling defect is identified within the common duct. Gallbladder: Absent Pancreatic duct: The visualized portions of the pancreatic duct are normal. Spleen: No lesion is identified. Pancreas: The pancreas enhances normally and is without focal lesions. Adrenal glands: No mass is identified Kidneys: The visualized portions of the kidneys are normal. No adenopathy is identified. There is partial, nonocclusive thrombus within the superior mesenteric vein just cephalad to its 1st branch. She had undergone liver resection with a left hepatectomy for metastatic colon cancer at April 27, 2016. She was doing well post her liver resection and then we proceeded with her surgical resection for her DCIS. I performed a left needle localization lumpectomy/partial mastectomy on July 05, 2016. The pathology demonstrated: MICROSCOPIC DIAGNOSIS Left breast mass, lumpectomy with needle localization: Focal ductal carcinoma in situ. Changes consistent with previous biopsy site. See cancer summary below. SJ:carmen 07/07/16 DUCTAL CARCINOMA IN SITU SUMMARY: Specimen - partial breast Procedure - excision with wire-guided localization Lymph node sampling ? no lymph nodes present Specimen integrity - single intact specimen Specimen size ? 15 x 9 x 4 cm Specimen laterality ? left Tumor site ? not specified Size (extent) of DCIS ? 0.3 cm in greatest dimension. See comment. 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 Architectural pattern - cribriform Nuclear grade - grade 2 (intermediate) Necrosis ? not identified Margins ? margin uninvolved by ductal carcinoma in situ. The tumor is 2 cm away from the closest anterior and posterior margins Treatment effect - no known presurgical therapy. Lymph nodes ? not submitted Distant metastasis ? not replicable Additional Pathologic Findings ? fibrocystic changes. - Focal changes consistent with previous biopsy site. Ancillary Studies from previous specimen ([id number] / [id number]): ER ? positive (65%, strong) FL ? positive (54%, strong) Her2 sophie (IHC) ? equivocal (2+) Her2 by FISH - not performed. Microcalcifications ? present in non-neoplastic tissue. Clinical history - Please make reference to previous specimen ([id number]) left breast, stereotactic core biopsy with diagnosis of ductal carcinoma in situ. Pathologic Staging: pTis(DCIS) pNx Mx The above summary is in compliance with College of [employer] (CAP) Cancer Protocols Checklist and [place] Joint Committee on Cancer (AJCC), Staging Manual, 7th Ed. COMMENT A minute focus of ductal carcinoma in situ is noted adjacent to the previous biopsy site. The ductal carcinoma in situ is measured on the glass slide. The ductal carcinoma in situ in the previous breast biopsy ([id number]) measures 0.4 x 0.2 cm in greatest dimension and present in 2 out of 4 blocks. Case has been reviewed in consultation with Dr. Segovia who concurs with the above diagnosis. IDC:SARAH Napier notes the site is well healing. Post operative pain has been well controlled. The patient denies nausea. The patient`s appetite has been good. Given the size of her DCIS she was not felt to need radiation following her procedure. She is doing a self breast exam and notes no palpable abnormalities. She recently underwent follow-up mammogram on February 13, 2017. This demonstrated: IMPRESSION: PROBABLY BENIGN The grouped calcifications in the left breast are probably benign. A follow-up mammogram in 6 months is recommended to demonstrate stability. Alvarez oro/giovanny:02/13/2017 12:06:29 Cash Room Clerk: Aubrie VALDEZ)(Luis Miguel), [facility] letter sent: # Mo FU Mammogram BI-RADS: 3 Probably benign Aerologist: Giovanny Transcribe Date/Time: Feb 13 2017 11:10A Dictated by: ALVAREZ CORONADO MD This examination was interpreted and the report reviewed and electronically signed by: ALVAREZ CORONADO MD on Feb 13 2017 12:06PM ?EST The patient follow up study was found to have recurrence of her tumor at the edge of the previous resection in the liver and was felt to be a lung metastases. She is currently undergoing salvage/palliative chemotherapy. Overall she is doing well with these treatments. She had 6 month follow-up mammogram and ultrasound. This demonstrated: IMPRESSION: SUSPICIOUS FINDING - BIOPSY SHOULD BE CONSIDERED - FOLLOW-UP RECOMMENDED The 7 mm dilated duct in the left breast resembles a solid mass or a papilloma and is suspicious of malignancy. ?An ultrasound guided biopsy is recommended. Juancarlos andersen/giovanny:10/17/2017 15:09:57 Cash Room Clerk: Aubrie VALDEZ)(Luis Miguel), [facility] letter sent: Abnormal ? Mammogram BI-RADS: 4 Suspicious finding - Biopsy should be considered Ultrasound BI-RADS: 4 Suspicious finding - Biopsy should be considered Aerologist: Giovanny Transcribe Date/Time: Oct 17 2017 ?1:56P Dictated by : JUANCARLOS SNOW MD This examination was interpreted and the report reviewed and electronically signed by: JUANCARLOS SNOW MD on Oct 17 2017 ?3:09PM ?EST Results-Findings * * *Final Report* * * DATE OF EXAM: Oct 17 2017 ?2:54PM ? [facility] ? [id number] ?- ?[facility] US BREAST LTD LT ?/ PROCEDURE REASON: 6 month bilateral / left breast / abnormal mammogram ?? ? * * * * Physician Interpretation * * * * ?#[id number] - [facility] DIAGNOSTIC YAN BILATERAL DIGITAL DIAGNOSTIC MAMMOGRAM WITH CAD: 10/17/2017 HISTORY: 6 Month Bilateral / Left Breast / Abnormal Mammogram. RESULT: TECHNIQUE: ?The study was acquired using full field digital technology and interpreted from soft copy. Current study was also evaluated with a Computer Aided Detection (CAD). Comparison is made to exams dated: ?02/13/2017 mammogram, 09/04/2016 mammogram - [facility], 09/06/2015 mammogram, and 09/03/2015 mammogram. There are scattered fibroglandular elements in both breasts. The left breast has post-operative findings. There are grouped pleomorphic calcifications in the left breast at 9 o'clock anterior depth. No other significant masses, calcifications, or other findings are seen in either breast. SUSPICIOUS FINDING - BIOPSY SHOULD BE CONSIDERED The grouped pleomorphic calcifications in the left breast are suspicious of malignancy. ?A stereotactic biopsy is recommended. There is no abnormality seen in the left breast to correspond with the discharge from the nipple, however, clinical correlation is recommended. #[id number] - [facility] BREAST [facility] ULTRASOUND OF LEFT BREAST: 10/17/2017 RESULT: Comparison is made to exams dated: ?02/13/2017 mammogram, 09/04/2016 mammogram - [facility], 09/06/2015 mammogram, and 09/03/2015 mammogram. Real-time ultrasound of the left breast was performed. There is a 7 mm dilated duct in the left breast central to the nipple in the retroareolar region. ?This dilated duct displays internal echoes. She is currently recently receiving salvage chemotherapy for her metastatic colon cancer. She seems to be relatively stable on this course of treatment. The patient and her after considerable discussion would like to have biopsies of these areas. We plan to perform the biopsy at the midpoint of her chemotherapy therapy treatments I performed a left side Stereotactic guided core biopsy for her abnormal mammogram on November 20, 2017. The pathology returned as: Fibrocystic changes, focal intraductal hyperplasia without atypia. Hyalinized nodular with clustered microcalcifications, no evidence of malignancy The patient notes slight bruising since the procedure. VITALS: There were no vitals taken for this visit. On examination, the left side breast biopsy site is clean, dry, and intact. There is slight bruising of the site. Assessment IMPRESSION: status post Stereotactic guided core biopsy for left side breast benign findings. PLAN: If Quyen notes any problems, she should contact me immediately. I reminded her about the importance of self - breast exam. I recommend she perform monthly self breast exams. If any palpable abnormalities, change in breast exam, or any difficulties are noted, she is to contact my office immediately. At this point, we will plan to allow her breasts to heal completely and for her to continue her treatments for her metastatic liver cancer. Our plan will be to set her up for ultrasound-guided/wire localization excisional breast biopsy of the periareolar nodule in approximately 6-8 weeks Diagnoses: (R92.8) Abnormal finding on breast imaging (primary encounter diagnosis) Return to Clinic: The patient is instructed to follow- up with me in 1 month. Lc Elmore MD CNOVSP Observed: 11/23/2017 Status: COMPLETED Source: [place] 11:20 AM [facility] REPOSITORY Visit (SP) Office (HEMA[place]) QUYEN COKER ([id number]) 1940 [address] [facility] Date Time Provider Department 11/23/17 11:20 AM CHANEL COOLEY During your visit today, we recorded the following information about you: Temperature Pulse Blood pressure Weight 97.6 degrees 65/minute 112/70 98 kg Chanel Cooley MD 11/24/2017 8:56 AM Signed Diagnosis: 1) Metastatic colon cancer. KRAS - No variant detected [Reference sequence: (NM_004985.4)]. NRAS - No variant detected [Reference sequence: (NM_002524.4)]. BRAF - No variant detected [Reference sequence: (NM_004333.4)]. 2) DCIS. 3) IMV thrombus. 4) DVT. ? HPI: The patient is a 77 yo female with a PMH significant for hyperlipidemia, HTN, CAD (PR, CABG x2 2011; stent x1 2013), PVD (carotid artery stenosis s/p CEA left side 2012), sleep apnea (uses CPAP), arthritis (chronic lower back and from lower thoracic area to the neck pain). ? She developed rectal bleeding in March and underwent evaluation with EGD. Evidently that study was normal. Next underwent colonoscopy and was observed to have a tumor in the cecum. Had normal colonoscopy about 2 years prior. ? Underwent right hemicolectomy 07/28/2015. ? 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 Through muscularis propria into subserosal adipose tissue, but not extending to the serosal surface. All margins negative. No lymphovascular invasion. No perineural invasion. No tumor deposits. None of 14 nodes positive. No evidence MSI by IHC. ? Had screening mammogram 08/2015. Abnormality left breast. Dx mammo and US 09/06/2015. 6.5 x 7.9 mm nodular density with focal calcifications in fthe slightly upper lateral portion of the left breast. ? Underwent stereotactic core biopsy 09/15/2015. ? DCIS, cribriform and solid, grade 2, single cell necrosis; no invasive carcinoma. ? MRI of the breast 10/11/2015: Longitudinally oriented area of mild enhancement in the central left breast thought to be due to postbiopsy hemorrhage/inflammation. Tumor along this entire length is thought less likely but cannot be excluded. ? MRI of the abdomen and pelvis 10/13/2015: Liver: There is a large, heterogeneously enhancing mass within the entire lateral segment of the left hepatic lobe and extending into the medial segment as well. This mass measures approximately 8.2 x 5.8 x 6.3 cm. This is most consistent with neoplasm, perhaps metastatic given the patient's history of colonic carcinoma. No additional hepatic lesions are seen. There is patchy hepatic fatty change throughout the right hepatic lobe. ? Partial, nonocclusive thrombus within the superior mesenteric vein just cephalad to its 1st branch. ? Liver biopsy--consistent with colorectal primary. ? Patient received the fourth cycle chemotherapy on 12/22/2015. She developed profuse diarrhea and presented to the emergency department for dehydration and shortness of breath. She was found to be an RVR atrial fibrillation with significant hypomagnesemia. She was admitted and started on IV hydration and magnesium replacement as well as medical management of atrial fibrillation. The diarrhea however continued for several more days during which she was given supportive care. Following that she developed an episode of ileus which extend her hospital stay. She was eventually discharged to rehabilitation. This morning she underwent an ultrasound of both lower extremities. She was found to have an acute DVT in the right common femoral vein. Treated with apixaban. ? Underwent left-sided lumpectomy for DCIS. ? Specimen - partial breast Procedure - excision with wire-guided localization Lymph node sampling ? no lymph nodes present Specimen integrity - single intact specimen Specimen size ? 15 x 9 x 4 cm Specimen laterality ? left Tumor site ? not specified Size (extent) of DCIS ? 0.3 cm in greatest dimension. See comment. 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 Architectural pattern - cribriform Nuclear grade - grade 2 (intermediate) Necrosis ? not identified Margins ? margin uninvolved by ductal carcinoma in situ. The tumor is 2 cm away from the closest anterior and posterior margins Treatment effect - no known presurgical therapy. Lymph nodes ? not submitted Distant metastasis ? not replicable Additional Pathologic Findings ? fibrocystic changes. - Focal changes consistent with previous biopsy site. ? Previous therapy: 1) FOLFOX x1; FOLFOX with Vectibix x3. 2) Underwent left hepatectomy 04/28/2016. Final pathology reviewed. Positive margin was cauterized during surgery. 3) Xeloda. Started cycle #3 11/27/2016 through 02/2017. 4) Infusional 5-fluorouracil with oxaliplatin on diagnosis metastases lung. ? Current therapy: 1) FOLFIRI. ? Presents for ongoing oncologic management--evaluation for cycle 2. ? Interim history: She had more fatigue and generalized weariness with the first cycle. Her appetite is still doing well. No diarrhea or stomatitis. She has noticed more shortness of breath with exertion. No palpitation or feelings of pressure in the chest. Symptoms of neuropathy stable. she also noticed alopecia. ? PMH, medications and allergies as below personally reviewed by me today. Any changes documented in appropriate section. ? ROS: Constitutional: Denies episodes of fever and night sweats. Neuro: Denies vertigo and dizziness. HEENT: No recent change in voice, vision or hearing (significant b/l hearing loss--stable). Resp: See above. CVS: Denies exertional chest pain, PND, orthopnea. GI: See above. : No dysuria or gross hematuria. Stress incontinence stable. Endo: Denies hot flashes. Denies polyuria and polydipsia. Denies heat and cold intolerance. Musculoskeletal: Denies bone, back, joint and muscular pain. Derm: Denies rash. Denies diffuse pruritis. Heme: No unusual bleeding and/or unexplained bruising. Psych: Normal mood. ? PHYSICAL EXAM: Well-appearing and in no acute distress. performance status 80% BP 112/70 Pulse 65 Temp (Src) 97.6 (Temporal Artery) Wt 216 lb (98.0kg) EYES: Sclerae are anicteric bilaterally. NECK: Supple. No enlargement of thyroid. LYMPHATIC: There is no palpable cervical, supraclavicular adenopathy. RESPIRATORY: Inspiratory breath sounds are of diminished intensity in all pedersen and remain clear with no rhonchi or wheeze currently. CARDIOVASCULAR: Rhythm is irregular today. ABDOMEN: The abdomen is nondistended and non-tender. Extremities: Free of edema. SKIN: No jaundice or rash. No petechiae. NEUROLOGIC: foil cutter II-XII are grossly intact. No focal motor weakness. LABS: Component Latest Ref Rng ANDamp; Units 11/23/2017 Sodium 128 - 145 mmol/L 141 Potassium 3.6 - 5.1 mmol/L 3.7 Chloride 98 - 108 mmol/L 100 CO2 18 - 33 mmol/L 27 Creatinine 0.6 - 1.2 mg/dL 1.10 BUN 7 - 22 mg/dL 21 Glucose 73 - 118 mg/dL 215 (H) Calcium 8.0 - 10.3 mg/dL 9.4 Magnesium 1.6 - 2.3 mg/dL 1.7 Anion Gap 9 - 18 mmol/L 14 eGFR- 59 eGFR-All Other Races . 48 WBC, Kellen 3.70 - 11.00 k/uL 5.10 RBC, [place] 3.90 - 5.20 m/uL 3.51 (L) Hemoglobin, Kellen 11.5 - 15.5 g/dL 11.6 Hematocrit, Kellen 36.0 - 46.0 % 36.4 MCV, [place] 80.0 - 100.0 fL 103.7 (H) MCH, [place] 26.0 - 34.0 pg 33.0 MCHC, [place] 30.5 - 36.0 g/dL 31.9 RDW, Kellen 11.5 - 15.0 % 17.6 (H) Platelet Cnt, [place] 150 - 400 k/uL 223 MPV, Kellen 9.0 - 12.7 fL 9.8 Absol Gran Count 1.45 - 7.50 k/uL 2.60 Component Latest Ref Rng ANDamp; Units 11/23/2017 Albumin 3.9 - 4.9 g/dL 3.8 (L) Bilirubin, Total 0.2 - 1.3 mg/dL 0.4 Bilirubin, Conjug ANDlt;0.2 mg/dL ANDlt;0.2 Alkaline Phosphatase 32 - 117 U/L 164 (H) AST 13 - 35 U/L 30 ALT 7 - 38 U/L 20 Protein, Total 6.3 - 8.0 g/dL 6.7 Component Latest Ref Rng ANDamp; Units 10/26/2017 11/09/2017 CEA 0.0 - 2.9 ng/mL 7.2 (H) 5.6 (H) ? ASSESSMENT/PLAN: (C18.2) Malignant neoplasm of ascending colon (HCC) (primary encounter diagnosis) (C78.7) Liver metastasis (HCC) Assessment: -First cycle was complicated by neutropenia with delay of treatment. -She had progressive neuropathy in the setting of diabetes after 8 total doses of oxaliplatin. -CEA level and liver function are stable with chemotherapy treatment. Plan: -continue chemotherapy on Sunday with dose reduction (20%) 5-FU and Camptosar -repeat CT scan after 3rd cycles. ? 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 Plan: -Continue Xarelto. ? 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 Plan: -Will need biopsy ( not sure if this is scheduled already ) I spent 25 minutes in the visit, with more than 50% of the total ataf-yd-htyp time of the visit in counseling / coordination of care. -Hold Xarleto x 48 hours before biopsy. Chanel Cooley MD Cc: Dr. Alvarez Mccoy Referring Provider: SUJIT VASQUEZ [[id number]] Allergies As of Date: 11/23/2017 Noted Allergy Reaction CORGARD (NADOLOL) 07/21/2015 12 - Shortness of Breath PENN 07/21/2015 12 - Shortness of Breath MORPHINE 07/21/2015 12 - Shortness of Breath Comments: Pt says she can tolerate oxycodone. PENICILLINS 07/21/2015 12 - Shortness of Breath PRAVACHOL (PRAVASTATIN) 07/21/2015 12 - Shortness of Breath SULFITE 07/21/2015 12 - Shortness of Breath Comments: Sulfites in food. Verified by refrigerator tester. ZOCOR (SIMVASTATIN) 07/21/2015 12 - Shortness of Breath Comments: Pt reports allergy to brand Zocor, tolerates generic. 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 LOS history recorded Follow-up and Disposition History Recorded Prescriptions as of 11/23/2017 Sig: [id number]* Take 10 mL by mouth every 4 h* POTASSIUM CHLORIDE 20 MEQ ORA* Take 20 mEq by mouth once wyatt* RIVAROXABAN 15 MG TABLET Take 1 tablet by mouth daily * Patient taking differently: Take by mouth daily with dinn* ONDANSETRON HCL 8 MG TABLET Take 1 tablet by mouth every * LIDOCAINE-PRILOCAINE 2.5 %-2.* Apply 1 application to affect* SODIUM CHLORIDE 0.9% FLUSH Access implanted vascular acc* HEPARIN, PORCINE (PF) 100 UNI* Access implanted vascular acc* LOPERAMIDE 2 MG TABLET Take 2 mg by mouth as needed. SODIUM CHLORIDE 0.9% FLUSH Access implanted vascular acc* HEPARIN LOCK FLUSH (PORCINE) * Access implanted vascular acc* FUROSEMIDE 20 MG TABLET Take 2 tablets by mouth twice* MONTELUKAST 10 MG TABLET Take 1 tablet by mouth daily * MAGNESIUM OXIDE 400 MG TABLET Take 400 mg by mouth twice da* ACETAMINOPHEN 500 MG TABLET Take 1,000 mg by mouth as nee* DIPHENHYDRAMINE 25 MG TABLET Take 50 mg by mouth as needed. ISOSORBIDE MONONITRATE ER 60 * Take 60 mg by mouth once wilman* ASPIRIN 81 MG TABLET,DELAYED * Take 81 mg by mouth once wilman* METOPROLOL TARTRATE 50 MG TAB* Take 50 mg by mouth twice wyatt* LISINOPRIL 10 MG TABLET Take 10 mg by mouth once wilman* OMEPRAZOLE 20 MG CAPSULE,MELODY* Take 20 mg by mouth once wilman* MOMETASONE 220 MCG (60 DOSES)* Inhale 1 Puff as instructed. CHOLECALCIFEROL (VITAMIN D3) * Take 1 tablet by mouth once d* SIMVASTATIN 40 MG TABLET Take 20 mg by mouth daily at * NITROGLYCERIN 0.3 MG SUBLINGU* Dissolve 0.3 mg under the ton* ALBUTEROL SULFATE HFA 90 MCG/* Inhale 2 Puffs as instructed * EPINEPHRINE 0.15 MG/0.15 ML I* by INJECTION(UNSPECIFIED PARE* LORATADINE 10 MG TABLET Take 10 mg by mouth as needed. PREDNISONE 10 MG TABLET Take 1 tablet twice the day b* KETOCONAZOLE 2 % TOPICAL CREAM Apply 1 application to affect* PROMETHAZINE 25 MG TABLET Take 0.5-1 tablets by mouth e* FERREX 150 MG IRON CAPSULE Take 1 capsule by mouth once * CLOTRIMAZOLE-BETAMETHASONE 1 * Apply 1 application to affect* HYDROCORTISONE VALERATE 0.2 %* Apply 1 application to affect* TRIAMCINOLONE ACETONIDE 0.025* Apply 1 application to affect* Medication notes this encounter FUROSEMIDE 20 MG TABLET >> Macey Clifford MA 11/23/2017 11:09 AM >> MACEY CLIFFORD MA SunNov 23, 2017 11:09 AM Taking one tablet twice daily. Problem List As Of Date 11/23/2017 Noted Resolved Malignant neoplasm of ascending colon (HCC) [C1*INVALID FOR* Abnormal mammogram of left breast [R92.8] INVALID FOR* 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] INVALID FOR* Abnormal magnetic resonance imaging of liver [R*INVALID FOR* Liver metastasis (HCC) [C78.7] INVALID FOR* Diabetes (HCC) [E11.9] INVALID FOR* Hearing loss [H91.90] INVALID FOR* Hypertension [I10] INVALID FOR* Hyperlipidemia [E78.5] INVALID FOR* Carotid artery disease (HCC) [I77.9] INVALID FOR* Coronary artery disease [I25.10] INVALID FOR* Asthma [J45.909] INVALID FOR* Sleep apnea [G47.30] INVALID FOR* Arthritis [M19.90] INVALID FOR* Fibromyalgia [M79.7] INVALID FOR* Atrial arrhythmia [I49.8] INVALID FOR* H/O degenerative disc disease [Z87.39] INVALID FOR* Spondylolysis [M43.00] INVALID FOR* Radiculopathy [M54.10] INVALID FOR* Eczema [L30.9] INVALID FOR* Anemia [D64.9] INVALID FOR* 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*INVALID FOR* Colon cancer (HCC) [C18.9] Encounter Status:Closed by CHANEL COOLEY MD on 11/24/17 PROGRESS Observed: 11/23/2017 Status: COMPLETED Source: [place] 11:14 AM [facility] REPOSITORY HNO ID: [id number] Author: Chanel Cooley Service: (none) Author Type: Physician Type: Progress Notes Filed: 11/24/2017 8:56 AM Note Text: Diagnosis: 1) Metastatic colon cancer. KRAS - No variant detected [Reference sequence: (NM_004985.4)]. NRAS - No variant detected [Reference sequence: (NM_002524.4)]. BRAF - No variant detected [Reference sequence: (NM_004333.4)]. 2) DCIS. 3) IMV thrombus. 4) DVT. ? HPI: The patient is a 77 yo female with a PMH significant for hyperlipidemia, HTN, CAD (PR, CABG x2 2011; stent x1 2013), PVD (carotid artery stenosis s/p CEA left side 2012), sleep apnea (uses CPAP), arthritis (chronic lower back and from lower thoracic area to the neck pain). ? She developed rectal bleeding in March and underwent evaluation with EGD. Evidently that study was normal. Next underwent colonoscopy and was observed to have a tumor in the cecum. Had normal colonoscopy about 2 years prior. ? Underwent right hemicolectomy 07/28/2015. ? 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 Through muscularis propria into subserosal adipose tissue, but not extending to the serosal surface. All margins negative. No lymphovascular invasion. No perineural invasion. No tumor deposits. None of 14 nodes positive. No evidence MSI by IHC. ? Had screening mammogram 08/2015. Abnormality left breast. Dx mammo and US 09/06/2015. 6.5 x 7.9 mm nodular density with focal calcifications in fthe slightly upper lateral portion of the left breast. ? Underwent stereotactic core biopsy 09/15/2015. ? DCIS, cribriform and solid, grade 2, single cell necrosis; no invasive carcinoma. ? MRI of the breast 10/11/2015: Longitudinally oriented area of mild enhancement in the central left breast thought to be due to postbiopsy hemorrhage/inflammation. Tumor along this entire length is thought less likely but cannot be excluded. ? MRI of the abdomen and pelvis 10/13/2015: Liver: There is a large, heterogeneously enhancing mass within the entire lateral segment of the left hepatic lobe and extending into the medial segment as well. This mass measures approximately 8.2 x 5.8 x 6.3 cm. This is most consistent with neoplasm, perhaps metastatic given the patient's history of colonic carcinoma. No additional hepatic lesions are seen. There is patchy hepatic fatty change throughout the right hepatic lobe. ? Partial, nonocclusive thrombus within the superior mesenteric vein just cephalad to its 1st branch. ? Liver biopsy--consistent with colorectal primary. ? Patient received the fourth cycle chemotherapy on 12/22/2015. She developed profuse diarrhea and presented to the emergency department for dehydration and shortness of breath. She was found to be an RVR atrial fibrillation with significant hypomagnesemia. She was admitted and started on IV hydration and magnesium replacement as well as medical management of atrial fibrillation. The diarrhea however continued for several more days during which she was given supportive care. Following that she developed an episode of ileus which extend her hospital stay. She was eventually discharged to rehabilitation. This morning she underwent an ultrasound of both lower extremities. She was found to have an acute DVT in the right common femoral vein. Treated with apixaban. ? Underwent left-sided lumpectomy for DCIS. ? Specimen - partial breast Procedure - excision with wire-guided localization Lymph node sampling ? no lymph nodes present Specimen integrity - single intact specimen Specimen size ? 15 x 9 x 4 cm Specimen laterality ? left Tumor site ? not specified Size (extent) of DCIS ? 0.3 cm in greatest dimension. See comment. 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 Architectural pattern - cribriform Nuclear grade - grade 2 (intermediate) Necrosis ? not identified Margins ? margin uninvolved by ductal carcinoma in situ. The tumor is 2 cm away from the closest anterior and posterior margins Treatment effect - no known presurgical therapy. Lymph nodes ? not submitted Distant metastasis ? not replicable Additional Pathologic Findings ? fibrocystic changes. - Focal changes consistent with previous biopsy site. ? Previous therapy: 1) FOLFOX x1; FOLFOX with Vectibix x3. 2) Underwent left hepatectomy 04/28/2016. Final pathology reviewed. Positive margin was cauterized during surgery. 3) Xeloda. Started cycle #3 11/27/2016 through 02/2017. 4) Infusional 5-fluorouracil with oxaliplatin on diagnosis metastases lung. ? Current therapy: 1) FOLFIRI. ? Presents for ongoing oncologic management--evaluation for cycle 2. ? Interim history: She had more fatigue and generalized weariness with the first cycle. Her appetite is still doing well. No diarrhea or stomatitis. She has noticed more shortness of breath with exertion. No palpitation or feelings of pressure in the chest. Symptoms of neuropathy stable. she also noticed alopecia. ? PMH, medications and allergies as below personally reviewed by me today. Any changes documented in appropriate section. ? ROS: Constitutional: Denies episodes of fever and night sweats. Neuro: Denies vertigo and dizziness. HEENT: No recent change in voice, vision or hearing (significant b/l hearing loss--stable). Resp: See above. CVS: Denies exertional chest pain, PND, orthopnea. GI: See above. : No dysuria or gross hematuria. Stress incontinence stable. Endo: Denies hot flashes. Denies polyuria and polydipsia. Denies heat and cold intolerance. Musculoskeletal: Denies bone, back, joint and muscular pain. Derm: Denies rash. Denies diffuse pruritis. Heme: No unusual bleeding and/or unexplained bruising. Psych: Normal mood. ? PHYSICAL EXAM: Well-appearing and in no acute distress. performance status 80% BP 112/70 Pulse 65 Temp (Src) 97.6 (Temporal Artery) Wt 216 lb (98.0kg) EYES: Sclerae are anicteric bilaterally. NECK: Supple. No enlargement of thyroid. LYMPHATIC: There is no palpable cervical, supraclavicular adenopathy. RESPIRATORY: Inspiratory breath sounds are of diminished intensity in all pedersen and remain clear with no rhonchi or wheeze currently. CARDIOVASCULAR: Rhythm is irregular today. ABDOMEN: The abdomen is nondistended and non-tender. Extremities: Free of edema. SKIN: No jaundice or rash. No petechiae. NEUROLOGIC: foil cutter II-XII are grossly intact. No focal motor weakness. LABS: Component Latest Ref Rng AND Units 11/23/2017 Sodium 128 - 145 mmol/L 141 Potassium 3.6 - 5.1 mmol/L 3.7 Chloride 98 - 108 mmol/L 100 CO2 18 - 33 mmol/L 27 Creatinine 0.6 - 1.2 mg/dL 1.10 BUN 7 - 22 mg/dL 21 Glucose 73 - 118 mg/dL 215 (H) Calcium 8.0 - 10.3 mg/dL 9.4 Magnesium 1.6 - 2.3 mg/dL 1.7 Anion Gap 9 - 18 mmol/L 14 eGFR- 59 eGFR-All Other Races . 48 WBC, [place] 3.70 - 11.00 k/uL 5.10 RBC, [place] 3.90 - 5.20 m/uL 3.51 (L) Hemoglobin, Kellen 11.5 - 15.5 g/dL 11.6 Hematocrit, [place]ellen 36.0 - 46.0 % 36.4 MCV, [place] 80.0 - 100.0 fL 103.7 (H) MCH, [place] 26.0 - 34.0 pg 33.0 MCHC, [place] 30.5 - 36.0 g/dL 31.9 RDW, [place] 11.5 - 15.0 % 17.6 (H) Platelet Cnt, [place]ellen 150 - 400 k/uL 223 MPV, [place] 9.0 - 12.7 fL 9.8 Absol Gran Count 1.45 - 7.50 k/uL 2.60 Component Latest Ref Rng AND Units 11/23/2017 Albumin 3.9 - 4.9 g/dL 3.8 (L) Bilirubin, Total 0.2 - 1.3 mg/dL 0.4 Bilirubin, Conjug <0.2 mg/dL <0.2 Alkaline Phosphatase 32 - 117 U/L 164 (H) AST 13 - 35 U/L 30 ALT 7 - 38 U/L 20 Protein, Total 6.3 - 8.0 g/dL 6.7 Component Latest Ref Rng AND Units 10/26/2017 11/09/2017 CEA 0.0 - 2.9 ng/mL 7.2 (H) 5.6 (H) ? ASSESSMENT/PLAN: (C18.2) Malignant neoplasm of ascending colon (HCC) (primary encounter diagnosis) (C78.7) Liver metastasis (HCC) Assessment: -First cycle was complicated by neutropenia with delay of treatment. -She had progressive neuropathy in the setting of diabetes after 8 total doses of oxaliplatin. -CEA level and liver function are stable with chemotherapy treatment. Plan: -continue chemotherapy on Sunday with dose reduction (20%) 5-FU and Camptosar -repeat CT scan after 3rd cycles. ? 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 Plan: -Continue Xarelto. ? 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 Plan: -Will need biopsy ( not sure if this is scheduled already ) I spent 25 minutes in the visit, with more than 50% of the total [id number] time of the visit in counseling / coordination of care. -Hold Xarleto x 48 hours before biopsy. Chanel Cooley MD Cc: Dr. Alvarez Mccoy HIMROD ABS GR + CBC Collected: 11/23/2017 Status: F Source: [place] 11:11 AM [facility] REPOSITORY TYPE CODE TESTS RESULT OUT OF REFERENCE UNITS RANGE LAB WWBC 3.70-11.00 k/uL [place] WBC 5.10 LAB WRBC 3.90-5.20 m/uL Low [place] RBC 3.51 LAB WHGB 11.5-15.5 g/dL [place] Hemoglobin 11.6 LAB WHCT 36.0-46.0 % [place] Hematocrit 36.4 LAB WMCV 80.0-100.0 fL [place]ellen High MCV 103.7 LAB WMCH 26.0-34.0 pg [place] MCH 33.0 LAB WMCHC 30.5-36.0 g/dL [place]ellen MCHC 31.9 LAB WRDW 11.5-15.0 % [place] High RDW 17.6 LAB WPLT 150-400 k/uL [place] Platelet Cnt 223 LAB WMPV 9.0-12.7 fL [place]ellen MPV 9.8 Result Comment: Test performed at: [facility], [address] [place] [address]. LAB ABGRAN 1.45-7.50 k/uL Absol Gran 2.60 Count BMP PLUS FHC Collected: 11/23/2017 Status: F Source: [place] 11:11 AM [facility] REPOSITORY TYPE CODE TESTS RESULT OUT OF REFERENCE UNITS RANGE LAB NA 128-145 mmol/L Sodium 141 LAB K 3.6-5.1 mmol/L Potassium 3.7 LAB CL 98-108 mmol/L Chloride 100 LAB CO2 18-33 mmol/L CO2 27 LAB CRET 0.6-1.2 mg/dL Creatinine 1.10 LAB BUN 7-22 mg/dL BUN 21 LAB GLU 73-118 mg/dL Glucose High 215 LAB CA 8.0-10.3 mg/dL Calcium, Total 9.4 LAB MG 1.6-2.3 mg/dL Magnesium 1.7 LAB AGAP 9-18 mmol/L Anion Gap 14 LAB GFRAA eGFR- 59 Amer. LAB GFRNAA . eGFR-All Other Races 48 Result Comment: eGFR (Estimated GFR) Units of measure: mL/min/1.73 meters squared eGFR is derived from the reexpressed MDRD Study equation using the following parameters: serum creatinine, age, gender and race. The creatinine assay has been calibrated to be traceable to IDMS. An eGFR <60 mL/min/1.73m2 for >3 months is consistent with chronic kidney disease. Refer to KDOQI guidelines for clinical interpretation. In patients with unstable renal function, e.g. those with acute kidney injury, the eGFR may not accurately reflect actual GFR. HEPATIC FUNCTN PANEL Collected: 11/23/2017 Status: F Source: [place] 11:11 AM [facility] REPOSITORY TYPE CODE TESTS RESULT OUT OF REFERENCE UNITS RANGE LAB ALB 3.9-4.9 g/dL Low Albumin 3.8 LAB TBIL 0.2-1.3 mg/dL Bilirubin, Total 0.4 LAB CBIL <0.2 mg/dL Bilirubin,Conjuga <0.2 maikel LAB ALKP 32-117 U/L Alkaline High Phosphatase 164 LAB AST 13-35 U/L AST 30 LAB ALT 7-38 U/L ALT 20 LAB TP 6.3-8.0 g/dL Protein, Total 6.7 Performed By: #### HFP, CEA #### [facility] [address] [address] CEA Collected: 11/23/2017 Status: F Source: [place] 11:11 AM [facility] REPOSITORY TYPE CODE TESTS RESULT OUT OF RANGE REFERENCE UNITS LAB CEA 0.0-2.9 ng/mL High CEA 4.2 Result Comment: Test analyzed by the Nicholas DxI method. Performed By: #### HFP, CEA #### [facility] [address] [place], [place] [address] CNOV Observed: 11/22/2017 Status: COMPLETED Source: [place] 3:00 PM [facility] REPOSITORY Office Visit (GENSWS) QUYEN COKER ([id number]) 1940 [facility] Date Time Provider Department 11/22/17 3:00 PM LC ELMORE During your visit today, we recorded the following information about you: Lc Elmore MD 11/24/2017 6:02 AM Signed FOLLOW UP VISIT - POST LEFT STEREOTACTIC GUIDED CORE BIOPSY NAME: Quyen Coker [facility] NO.: [id number] DATE OF SERVICE: 11/22/2017 : 1940 REFERRING PHYSICIAN: Alvarez Mccoy MD Quyen is a patient I am following for left medial breast microcalcifications, 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 She returns here for follow-up of her breast related issues. 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 Her complicated history is as follows: The patient is a 74 year old female with a complaint of rectal bleeding and anemia. The patient initially underwent upper endoscopy which demonstrated no obvious source. The patient underwent colonoscopy by Dr. Chuck Penn on July 13 which demonstrated a fungating mass at the cecum ascending colon junction. Pathology returned as invasive adenocarcinoma. The patient is being seen by me today at the request of Dr. Penn for my opinion and advice regarding right colon cancer. The patient has a history of coronary disease and carotid stenosis. She has been on Plavix which was on hold after her endoscopy and prior to her surgical procedure. Additionally, she had undergone previous left carotid endarterectomy. Patient was recently evaluated by her metal patternmaker, Dr. Sujit Maya. She had undergone coronary bypass grafting in 2011 and is status post an LAD and left circumflex stent placement in November 2013. 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 She has good left ventricular ejection fraction. It was felt she was an acceptable risk for surgical intervention and did not require further preoperative cardiac diagnostic studies. I performed a laparoscopic right hemicolectomy on July 28, 2015. The pathology demonstrated: The tumor's size was 3.0x2.6.1.0 cm. Macroscopic tumor perforation was not identified. Histologic type: adenocarcinoma Histologic Grade: Low grade Histologic features for microsatellite instability - Intratumoral lymphocytic response: Mild to moderate Peritumoral lymphocytic response: Crohn's like lymphoid response: None Tumor subtype and differentiation: Not applicable MIcroscopic tumor extension: tumor invades through muscularis propria into subserosal adipose Lymphovascular invasion: None Perineural invasion: None Surgical margins were free of disease. Lymph nodes examined: 14 Lymph nodes involved: 0 PATHOLOGIC STAGE: pT 3, pN 0, M 0 Quyen noted loose stools had been continuing for the past few days at her August 15 follow-up. She has been maintaining a low residue diet. She also notes very transient dizziness. Post operative pain has been well controlled. The patient notes nausea. The patient`s appetite has been average. She was admitted to the hospital on August 22 with further looser stools and dizziness and some dehydration. Stool cultures were obtained which demonstrated no abnormalities. She was started on probiotics and Imodium and this significantly improved her stool frequency. She notes that at this point in time, her stools remain somewhat green but are less loose than they were. Overall she states her appetite still remains fair. She also notes that she is having issues of persistent nausea. She noted that this seemed similar to this as she had had in the past and was evaluated by Dr. Penn with upper endoscopy which was apparently unremarkable. The patient has been on a 20 mg Prilosec dose for some time. She notes that her nausea symptoms improve if she takes Maalox. The patient still is complaining of episodic transient dizziness that is worse if she raises up more quickly. Additionally, the patient underwent a recent follow-up mammogram. This was read as demonstrating a 8 mm mass with microcalcifications in her left breast. It was recommended biopsy listed BI-RADS Category 4. The patient did not have ultrasound performed. She irregularly performs a self breast exam and notes overall lumpy breasts but denies any specific changes. She denies skin changes, nipple discharge, or other difficulties. She had a previous mammogram that did demonstrate some microcalcifications similar mass. I obtained a CT scan of the abdomen and pelvis. This demonstrated no intra-abdominal abnormalities and demonstrated the anastomosis to have no signs of leakage inflammation or abscess which I felt could've been concerning for her abdominal complaints. There was noted to be in an area of asymmetric contrast enhancement in the liver which seemed to go away in delayed films. There were a list of possible options for this and MRI was recommended as an option. The patient had a previous CT scan preop which demonstrated similar findings from my standpoint and intraoperatively had no abnormalities noted in this location at the liver surface. I felt it was not necessary to have an MRI. Dr. Vasquez evaluated the patient and was concerned of those findings and recommended an MRI be obtained. The patient has since seen her primary care physician. Her oral hypoglycemic medication was stopped which has both cured her dizziness symptoms and her epigastric/nausea symptoms. We also obtained ultrasound which demonstrates no specific abnormalities in her left breast I performed a left side stereotactic biopsy for her abnormal mammogram on September 15, 2014. The pathology returned as DCIS. The patient notes some resolution of the bruising since the procedure but now notes a mass that worries her at the biopsy site. 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 Nuclear Grade - 2 (intermediate). Necrosis - present, single cell necrosis. Calcifications - present. Additional findings - focal fibrocystic changes. Negative for invasive carcinoma in the submitted specimen. I plan to obtain an MRI to assess her breast for additional or more extended pathology. MRI of the breast returned as: IMPRESSION: KNOWN BIOPSY PROVEN MALIGNANCY Longitudinally oriented area of mild enhancement in the central left breast thought to be due to postbiopsy hemorrhage/inflammation. Tumor along this entire length is thought less likely but cannot be excluded. Brandee condon/giovanny:10/12/2015 12:43:57 Cash Room Clerk: [facility] letter sent: Category 6 MRI BI-RADS: 6 Known biopsy proven malignancy Aerologist: VIDYA Transcribe Date/Time: Oct 12 2015 12:43P Dictated by : BRANDEE AYALA MD This examination was interpreted and the report reviewed and electronically signed by: BRANDEE AYALA MD On Oct 12 2015 12:43PM Results-Findings * * *Final Report* * * DATE OF EXAM: Oct 11 2015 9:45AM [facility] [id number] - MRI BREAST YAN WWO / PROCEDURE REASON: DCIS (D05.10), ABNORMAL MAMMOGRAM OF LEFT BREAST (R92.8) * * * * Physician Interpretation * * * * #[id number] - MRI BREAST YAN WWO BREAST MRI OF BOTH BREASTS : 10/11/2015 HISTORY: Dcis (D05.10), Abnormal Mammogram Of Left Breast (R92.8). RESULT: No prior exams were available for comparison. Interpretation of this MRI was correlated with available mammograms. Gadolinium contrast calibrated to patient weight was injected. Axial T1, T2, pre and post contrast T1, and coronal images were obtained with a dedicated breast coil. The breasts are mostly fatty bilaterally. No mass, architectural distortion or abnormal enhancement is seen in the right breast. In the mid central right breast, centered just above the nipple is a longitudinal area of mild increased progressive enhancement. This is in the vicinity of recent biopsy. There is susceptibility artifact. However, the length of abnormal enhancement is much greater than the targeted lesion measuring approximately 4 cm in craniocaudal dimension. Maximal AP dimension is approximately 1.7 cm and maximal transverse dimension 1.3 cm. This abnormal enhancement could be biopsy related, perhaps representing postbiopsy hemorrhage/inflammation. No other areas of abnormal enhancement or architectural distortion are seen. There are no abnormalities seen in the axillary nodes region or infraclavicular nodes. The patient's abdominal MRI returned as: IMPRESSION: Large left hepatic lobe lesion, neoplastic in appearance and likely metastatic from the patient's known colonic CA. Partial SMV thrombus. COMMUNICATION: Communicated with: SUJIT Hernandez 10/13/2015 12:20 PM. Aerologist: VIDYA Transcribe Date/Time: Oct 13 2015 12:26P Dictated by : BRANDEE AYALA MD This examination was interpreted and the report reviewed and electronically signed by: BRANDEE AYALA MD On Oct 13 2015 12:26PM Results-Findings * * *Final Report* * * DATE OF EXAM: Oct 13 2015 9:35AM [facility] 0445 - MRI ABDOMEN WWO CONTRAST / PROCEDURE REASON: abnormal ct of lever r93.2 malignant neoplasm of ascending colon c18.2 dcia lef * * * * Physician Interpretation * * * * RESULT: MRI of the abdomen without and with intravenous contrast HISTORY: abnormal ct of lever r93.2 malignant neoplasm of ascending colon c18.2 dcis left TECHNIQUE: Using the torso phased array coil, axial STIR, T1 weighted in- and [id number] and coronal HASTE images were obtained. Flow sensitive imaging through the portal vein was performed, as well. Then, using a 3-D GRE T1 weighted sequence, dynamic images were obtained before, during and after the administration of 19ml cc intravenous Dotarem. Comparison: None FINDINGS: Liver: There is a large, heterogeneously enhancing mass within the entire lateral segment of the left hepatic lobe and extending into the medial segment as well. This mass measures approximately 8.2 x 5.8 x 6.3 cm. This is most consistent with neoplasm, perhaps metastatic given the patient's history of colonic carcinoma. No additional hepatic lesions are seen. There is patchy hepatic fatty change throughout the right hepatic lobe. Biliary tract: The common bile duct is normal in course and caliber. No filling defect is identified within the common duct. Gallbladder: Absent Pancreatic duct: The visualized portions of the pancreatic duct are normal. Spleen: No lesion is identified. Pancreas: The pancreas enhances normally and is without focal lesions. Adrenal glands: No mass is identified Kidneys: The visualized portions of the kidneys are normal. No adenopathy is identified. There is partial, nonocclusive thrombus within the superior mesenteric vein just cephalad to its 1st branch. She had undergone liver resection with a left hepatectomy for metastatic colon cancer at April 27, 2016. She was doing well post her liver resection and then we proceeded with her surgical resection for her DCIS. I performed a left needle localization lumpectomy/partial mastectomy on July 05, 2016. The pathology demonstrated: MICROSCOPIC DIAGNOSIS Left breast mass, lumpectomy with needle localization: Focal ductal carcinoma in situ. Changes consistent with previous biopsy site. See cancer summary below. SJ:carmen 07/07/16 DUCTAL CARCINOMA IN SITU SUMMARY: Specimen - partial breast Procedure - excision with wire-guided localization Lymph node sampling ? no lymph nodes present Specimen integrity - single intact specimen Specimen size ? 15 x 9 x 4 cm Specimen laterality ? left Tumor site ? not specified Size (extent) of DCIS ? 0.3 cm in greatest dimension. See comment. 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 Architectural pattern - cribriform Nuclear grade - grade 2 (intermediate) Necrosis ? not identified Margins ? margin uninvolved by ductal carcinoma in situ. The tumor is 2 cm away from the closest anterior and posterior margins Treatment effect - no known presurgical therapy. Lymph nodes ? not submitted Distant metastasis ? not replicable Additional Pathologic Findings ? fibrocystic changes. - Focal changes consistent with previous biopsy site. Ancillary Studies from previous specimen ([id number] / [id number]): ER ? positive (65%, strong) FL ? positive (54%, strong) Her2 sophie (IHC) ? equivocal (2+) Her2 by FISH - not performed. Microcalcifications ? present in non-neoplastic tissue. Clinical history - Please make reference to previous specimen ([id number]) left breast, stereotactic core biopsy with diagnosis of ductal carcinoma in situ. Pathologic Staging: pTis(DCIS) pNx Mx The above summary is in compliance with College [employer] (CAP) Cancer Protocols Checklist and [place] Joint Committee on Cancer (AJCC), Staging Manual, 7th Ed. COMMENT A minute focus of ductal carcinoma in situ is noted adjacent to the previous biopsy site. The ductal carcinoma in situ is measured on the glass slide. The ductal carcinoma in situ in the previous breast biopsy ([id number]) measures 0.4 x 0.2 cm in greatest dimension and present in 2 out of 4 blocks. Case has been reviewed in consultation with Dr. Segovia who concurs with the above diagnosis. IDC:SARAH Napier notes the site is well healing. Post operative pain has been well controlled. The patient denies nausea. The patient`s appetite has been good. Given the size of her DCIS she was not felt to need radiation following her procedure. She is doing a self breast exam and notes no palpable abnormalities. She recently underwent follow-up mammogram on February 13, 2017. This demonstrated: IMPRESSION: PROBABLY BENIGN The grouped calcifications in the left breast are probably benign. A follow-up mammogram in 6 months is recommended to demonstrate stability. Alvarez oro/giovanny:02/13/2017 12:06:29 Cash Room Clerk: Aubrie VALDEZ)(Luis Miguel), [facility] letter sent: # Mo FU Mammogram BI-RADS: 3 Probably benign Aerologist: Giovanny Transcribe Date/Time: Feb 13 2017 11:10A Dictated by: ALVAREZ CORONADO MD This examination was interpreted and the report reviewed and electronically signed by: ALVAREZ CORONADO MD on Feb 13 2017 12:06PM ?EST The patient follow up study was found to have recurrence of her tumor at the edge of the previous resection in the liver and was felt to be a lung metastases. She is currently undergoing salvage/palliative chemotherapy. Overall she is doing well with these treatments. She had 6 month follow-up mammogram and ultrasound. This demonstrated: IMPRESSION: SUSPICIOUS FINDING - BIOPSY SHOULD BE CONSIDERED - FOLLOW-UP RECOMMENDED The 7 mm dilated duct in the left breast resembles a solid mass or a papilloma and is suspicious of malignancy. ?An ultrasound guided biopsy is recommended. Juancarlos andersen/giovanny:10/17/2017 15:09:57 Cash Room Clerk: Aubrie VALDEZ)(M), [facility] letter sent: Abnormal ? Mammogram BI-RADS: 4 Suspicious finding - Biopsy should be considered Ultrasound BI-RADS: 4 Suspicious finding - Biopsy should be considered Aerologist: Giovanny Transcribe Date/Time: Oct 17 2017 ?1:56P Dictated by : JUANCARLOS SNOW MD This examination was interpreted and the report reviewed and electronically signed by: JUANCARLOS SNOW MD on Oct 17 2017 ?3:09PM ?EST Results-Findings * * *Final Report* * * DATE OF EXAM: Oct 17 2017 ?2:54PM ? [facility] ? [id number] ?- ?[facility] US BREAST LTD LT ?/ PROCEDURE REASON: 6 month bilateral / left breast / abnormal mammogram ?? ? * * * * Physician Interpretation * * * * ?#[id number] - [facility] DIAGNOSTIC YAN BILATERAL DIGITAL DIAGNOSTIC MAMMOGRAM WITH CAD: 10/17/2017 HISTORY: 6 Month Bilateral / Left Breast / Abnormal Mammogram. RESULT: TECHNIQUE: ?The study was acquired using full field digital technology and interpreted from soft copy. Current study was also evaluated with a Computer Aided Detection (CAD). Comparison is made to exams dated: ?02/13/2017 mammogram, 09/04/2016 mammogram - [facility], 09/06/2015 mammogram, and 09/03/2015 mammogram. There are scattered fibroglandular elements in both breasts. The left breast has post-operative findings. There are grouped pleomorphic calcifications in the left breast at 9 o'clock anterior depth. No other significant masses, calcifications, or other findings are seen in either breast. SUSPICIOUS FINDING - BIOPSY SHOULD BE CONSIDERED The grouped pleomorphic calcifications in the left breast are suspicious of malignancy. ?A stereotactic biopsy is recommended. There is no abnormality seen in the left breast to correspond with the discharge from the nipple, however, clinical correlation is recommended. #[id number] - [facility] BREAST [facility] LT ULTRASOUND OF LEFT BREAST: 10/17/2017 RESULT: Comparison is made to exams dated: ?02/13/2017 mammogram, 09/04/2016 mammogram - [facility], 09/06/2015 mammogram, and 09/03/2015 mammogram. Real-time ultrasound of the left breast was performed. There is a 7 mm dilated duct in the left breast central to the nipple in the retroareolar region. ?This dilated duct displays internal echoes. She is currently recently receiving salvage chemotherapy for her metastatic colon cancer. She seems to be relatively stable on this course of treatment. The patient and her after considerable discussion would like to have biopsies of these areas. We plan to perform the biopsy at the midpoint of her chemotherapy therapy treatments I performed a left side Stereotactic guided core biopsy for her abnormal mammogram on November 20, 2017. The pathology returned as: Fibrocystic changes, focal intraductal hyperplasia without atypia. Hyalinized nodular with clustered microcalcifications, no evidence of malignancy The patient notes slight bruising since the procedure. VITALS: There were no vitals taken for this visit. On examination, the left side breast biopsy site is clean, dry, and intact. There is slight bruising of the site. Assessment IMPRESSION: status post Stereotactic guided core biopsy for left side breast benign findings. PLAN: If Quyen notes any problems, she should contact me immediately. I reminded her about the importance of self - breast exam. I recommend she perform monthly self breast exams. If any palpable abnormalities, change in breast exam, or any difficulties are noted, she is to contact my office immediately. At this point, we will plan to allow her breasts to heal completely and for her to continue her treatments for her metastatic liver cancer. Our plan will be to set her up for ultrasound-guided/wire localization excisional breast biopsy of the periareolar nodule in approximately 6-8 weeks Diagnoses: (R92.8) Abnormal finding on breast imaging (primary encounter diagnosis) Return to Clinic: The patient is instructed to follow- up with me in 1 month. MD Lc Rodriguez MD 11/24/2017 6:02 AM Signed The following instructions are important for you related to your office visit today with the [facility] General Surgeons. INSTRUCTIONS FOR FOLLOW UP FOR A BENIGN STEREOTACTIC BIOPSY Your radiologic studies demonstrated what was felt to be an abnormality in your breast. We performed a stereotactic biopsy of that abnormality. The breast tissue biopsied was sent to pathology. Fortunately, the pathology results did not reveal any malignancy (cancer) or significantly worrisome finding in the biopsied breast tissue. We will still follow this area closely to assure that you do not have any problems. We still recommend follow up evaluation. You will typically be asked to follow up in our office in 6 months after the biopsy. We will typically obtain a follow up mammogram 6 months after your biopsy. We also recommend that you continue to perform a monthly self breast examination. Contact our office immediately if you have any questions or concerns. If you note any additional difficulties, questions, or concerns, you should contact our office immediately @ [phone] and ask to be transferred to the General Surgery department. Referring Provider: SUJIT VASQUEZ [[id number]] Allergies As of Date: 11/22/2017 Noted Allergy Reaction CORGARD (NADOLOL) 07/21/2015 12 - Shortness of Breath PENN 07/21/2015 12 - Shortness of Breath MORPHINE 07/21/2015 12 - Shortness of Breath Comments: Pt says she can tolerate oxycodone. PENICILLINS 07/21/2015 12 - Shortness of Breath PRAVACHOL (PRAVASTATIN) 07/21/2015 12 - Shortness of Breath SULFITE 07/21/2015 12 - Shortness of Breath Comments: Sulfites in food. Verified by refrigerator tester. ZOCOR (SIMVASTATIN) 07/21/2015 12 - Shortness of Breath Comments: Pt reports allergy to brand Zocor, tolerates generic. Date Reviewed: 11/22/2017 Reviewed by: Ileana Mcbride LPN - Fully Assessed Reason for Visit: Post Op [174] Primary Visit Diagnosis:Abnormal finding on breast imaging [R92.8] Prescriptions as of 11/22/2017 Sig: [id number]* Take 10 mL by mouth every 4 h* PREDNISONE 10 MG TABLET Take 1 tablet twice the day b* POTASSIUM CHLORIDE 20 MEQ ORA* Take 20 mEq by mouth once wyatt* RIVAROXABAN 15 MG TABLET Take 1 tablet by mouth daily * Patient taking differently: Take by mouth daily with dinn* ONDANSETRON HCL 8 MG TABLET Take 1 tablet by mouth every * LIDOCAINE-PRILOCAINE 2.5 %-2.* Apply 1 application to affect* SODIUM CHLORIDE 0.9% FLUSH Access implanted vascular acc* HEPARIN, PORCINE (PF) 100 UNI* Access implanted vascular acc* KETOCONAZOLE 2 % TOPICAL CREAM Apply 1 application to affect* LOPERAMIDE 2 MG TABLET Take 2 mg by mouth as needed. PROMETHAZINE 25 MG TABLET Take 0.5-1 tablets by mouth e* SODIUM CHLORIDE 0.9% FLUSH Access implanted vascular acc* HEPARIN LOCK FLUSH (PORCINE) * Access implanted vascular acc* FUROSEMIDE 20 MG TABLET Take 2 tablets by mouth twice* MONTELUKAST 10 MG TABLET Take 1 tablet by mouth daily * FERREX 150 MG IRON CAPSULE Take 1 capsule by mouth once * MAGNESIUM OXIDE 400 MG TABLET Take 400 mg by mouth twice da* CLOTRIMAZOLE-BETAMETHASONE 1 * Apply 1 application to affect* ACETAMINOPHEN 500 MG TABLET Take 1,000 mg by mouth as nee* DIPHENHYDRAMINE 25 MG TABLET Take 50 mg by mouth as needed. HYDROCORTISONE VALERATE 0.2 %* Apply 1 application to affect* ISOSORBIDE MONONITRATE ER 60 * Take 60 mg by mouth once wilman* ASPIRIN 81 MG TABLET,DELAYED * Take 81 mg by mouth once wilman* METOPROLOL TARTRATE 50 MG TAB* Take 50 mg by mouth twice wyatt* LISINOPRIL 10 MG TABLET Take 10 mg by mouth once wilman* OMEPRAZOLE 20 MG CAPSULE,MELODY* Take 20 mg by mouth once wilman* MOMETASONE 220 MCG (60 DOSES)* Inhale 1 Puff as instructed. CHOLECALCIFEROL (VITAMIN D3) * Take 1 tablet by mouth once d* SIMVASTATIN 40 MG TABLET Take 20 mg by mouth daily at * NITROGLYCERIN 0.3 MG SUBLINGU* Dissolve 0.3 mg under the ton* ALBUTEROL SULFATE HFA 90 MCG/* Inhale 2 Puffs as instructed * EPINEPHRINE 0.15 MG/0.15 ML I* by INJECTION(UNSPECIFIED PARE* LORATADINE 10 MG TABLET Take 10 mg by mouth as needed. TRIAMCINOLONE ACETONIDE 0.025* Apply 1 application to affect* Problem List As Of Date 11/22/2017 Noted Resolved Malignant neoplasm of ascending colon (HCC) [C1*INVALID FOR* Abnormal mammogram of left breast [R92.8] INVALID FOR* 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] INVALID FOR* Abnormal magnetic resonance imaging of liver [R*INVALID FOR* Liver metastasis (HCC) [C78.7] INVALID FOR* Diabetes (HCC) [E11.9] INVALID FOR* Hearing loss [H91.90] INVALID FOR* Hypertension [I10] INVALID FOR* Hyperlipidemia [E78.5] INVALID FOR* Carotid artery disease (HCC) [I77.9] INVALID FOR* Coronary artery disease [I25.10] INVALID FOR* Asthma [J45.909] INVALID FOR* Sleep apnea [G47.30] INVALID FOR* Arthritis [M19.90] INVALID FOR* Fibromyalgia [M79.7] INVALID FOR* Atrial arrhythmia [I49.8] INVALID FOR* H/O degenerative disc disease [Z87.39] INVALID FOR* Spondylolysis [M43.00] INVALID FOR* Radiculopathy [M54.10] INVALID FOR* Eczema [L30.9] INVALID FOR* Anemia [D64.9] INVALID FOR* 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*INVALID FOR* Colon cancer (HCC) [C18.9] Other instructions from your clinician: The following instructions are important for you related to your office visit today with the [facility] General Surgeons. INSTRUCTIONS FOR FOLLOW UP FOR A BENIGN STEREOTACTIC BIOPSY Your radiologic studies demonstrated what was felt to be an abnormality in your breast. We performed a stereotactic biopsy of that abnormality. The breast tissue biopsied was sent to pathology. Fortunately, the pathology results did not reveal any malignancy (cancer) or significantly worrisome finding in the biopsied breast tissue. We will still follow this area closely to assure that you do not have any problems. We still recommend follow up evaluation. You will typically be asked to follow up in our office in 6 months after the biopsy. We will typically obtain a follow up mammogram 6 months after your biopsy. We also recommend that you continue to perform a monthly self breast examination. Contact our office immediately if you have any questions or concerns. If you note any additional difficulties, questions, or concerns, you should contact our office immediately @ [phone] and ask to be transferred to the General Surgery department. Follow-up and Disposition History Recorded Letter Text Encounter Status:Closed by LC ELMORE MD on 11/24/17 PROGRESS Observed: 11/22/2017 Status: COMPLETED Source: [place] 12:13 PM [facility] REPOSITORY HNO ID: [id number] Author: Lc Elmore Service: (none) Author Type: Physician Type: Progress Notes Filed: 11/22/2017 12:17 PM Note Text: OPERATIVE NOTATION FOR [facility] SURGICAL PROCEDURE. November 20, 2017 Quyen Coker 1940 [id number] female PROCEDURE: left VACCUUM NEEDLE STEREOTACTIC BREAST BIOPSY WITH SPECIMEN RADIOGRAPH - 45156 SURGEON: Jessie Elmore M.D. FACS INSEAM LEVELER: None DEPT: WQ PROVIDER: [id number] Elmore MD POS: [id number] DIAGNOSIS: (R92.8) Abnormal finding on breast imaging (primary encounter diagnosis) ASA CLASS: 3 - Severe FINDINGS: BENIGN COMPLICATIONS: None PMHx - PAST MEDICAL HISTORY Diagnosis Date - Anemia - Arthritis - Asthma - Atrial arrhythmia - Atrial fibrillation (HCC) - Carotid artery disease (HCC) - Colon cancer (HCC) - Coronary artery disease - Diabetes (HCC) - Eczema - Fibromyalgia - H/O degenerative disc disease - Hearing loss - Hyperlipidemia - Hypertension - Myocardial infarction (HCC) - Radiculopathy - Sleep apnea - Spondylolysis COMORBIDITIES - Cancer Metastasis and Current Cancer Therapy Post Op Occurrences - None Wound Classification - Clean Operative note dictated in the [facility] dictation system. Lc Elmore MD OPERATIVE REPORT Observed: 11/20/2017 Status: F Source: HIMROD 5:22 PM [facility] REPOSITORY [facility] Medical Records Department [address] [place] [address] Operative Report 11/20/17 1213 MR#: [id number] Acct: [id number] Name: QUYEN COKER Rep #: [id number] : 1940 77 From: Lc Elmore MD PCP: Alvarez Mccoy MD Status: REG CLI Y Location: [facility] Report of Operation Date of Procedure: 11/20/17 Pre-Operative Diagnosis: left medical breast microcalcifications Post-Operative Diagnosis: left medical breast microcalcifications - successful biopsy Surgery/Procedure Performed:: left breast stereotactic biopsy with specimen radiograph and marker placement gold stamper: None Type of Anesthesia:: Local Specimen's removed: left breast tissue Description of Procedure: The patient was brought to the stereotactic suite and informed of the plan course of events. The left breast was positioned in the true medial to lateral position on the [place] stereotactic table. Mammographic image demonstrated the area of abnormality to be located in the center of the radiograph. Stereotactic images were then obtained which demonstrated good positioning of the abnormality for biopsy with good stroke leida parameters. The breast was cleaned with Betadine area did one percent lidocaine was used to anesthetize the skin and a small stab incision made. An 8-gauge mammotome needle was placed into the pre-fire position. Stereotactic images demonstrated good positioning around the planned biopsy site. Local anesthetic injected deeply in the breast. The needle was deployed. Post deployment images demonstrated good positioning of the planned biopsy site. Multiple vacuum-assisted samples were obtained and xotibd-dby-czgic fashion. Specimen radiograph demonstrated micro-calcifications in the sample. A gel marker clip was deployed. Post biopsy images demonstrated good position of the clip relative the biopsy cavity. The breast was removed from compression. Steri-Strips and a dressing applied. Post procedure mammogram images were obtained. 11/20/17 1722 <Electronically signed by Lc Elmore MD> Date Lc Elmore MD CC: Alvarez Mccoy MD; Lc Elmore MD Signed BREAST BIOPSY Observed: 11/20/2017 Status: F Source: HIMROD (CHOOSE SITE) 11:30 AM [facility] REPOSITORY Patient: QUYEN COKER : 1940 (77/F) Acct Num: [id number] Phys: Catarina CARVAJAL,Lc Unit Num: [id number] Loc: [facility] Specimen: [id number] Received: 11/20/17 - 1216 Spec Type: BREAST BX TISSUES TISSUES: Left breast, NOS GROSS DESCRIPTION Received is one container labeled with the patient's name and not further designated. The specimen consists of multiple elongated fragments of theodore-yellow fibroadipose tissue that in aggregate measure 5 x 3 x 0.6 cm. The entire specimen is submitted in four cassettes. / SJ:carmen 11/20/17 TC:5 CPT: 50140 HEADER OPERATION: Left stereotactic breast biopsy PRE-OP DIAGNOSIS: Left breast, 9 o clock anterior depth, microcalcifications TISSUE SUBMITTED: Left breast core tissue ISCHEMIC TIME: 1 minute FIXATION TIME: 8 hours MICROSCOPIC DESCRIPTION Slides are reviewed. MICROSCOPIC DIAGNOSIS Left breast, 9 o clock anterior depth, stereotactic core biopsy: Fibrocystic change. Focal intraductal hyperplasia without atypia. Hyalinized nodule with clustered microcalcifications. No evidence of malignancy. AM:carmen 11/21/[address] [facility] 11/21/17 <signature on file> Performed By: #### PBRBX #### [facility] [address] [place], [address] CNOP Observed: 11/20/2017 Status: COMPLETED Source: [place] 12:00 AM [facility] REPOSITORY Operative Note (Enc) (GENSWS) Progress Notes: Lc Elmore MD 11/22/2017 12:17 PM Signed OPERATIVE NOTATION FOR [facility] SURGICAL PROCEDURE. November 20, 2017 Quyen Coker 1940 [id number] female PROCEDURE: left VACCUUM NEEDLE STEREOTACTIC BREAST BIOPSY WITH SPECIMEN RADIOGRAPH - 39582 SURGEON: Jessie Elmore M.D. FACS INSEAM LEVELER: None DEPT: WQ PROVIDER: [id number] Elmore MD POS: [id number] DIAGNOSIS: (R92.8) Abnormal finding on breast imaging (primary encounter diagnosis) ASA CLASS: 3 - Severe FINDINGS: BENIGN COMPLICATIONS: None PMHx - PAST MEDICAL HISTORY Diagnosis Date - Anemia - Arthritis - Asthma - Atrial arrhythmia - Atrial fibrillation (HCC) - Carotid artery disease (HCC) - Colon cancer (HCC) - Coronary artery disease - Diabetes (HCC) - Eczema - Fibromyalgia - H/O degenerative disc disease - Hearing loss - Hyperlipidemia - Hypertension - Myocardial infarction (HCC) - Radiculopathy - Sleep apnea - Spondylolysis COMORBIDITIES - Cancer Metastasis and Current Cancer Therapy Post Op Occurrences - None Wound Classification - Clean Operative note dictated in the [facility] dictation system. Lc Elmore MD Encounter Status:Closed by LC ELMORE MD on 11/22/17 HIMROD ABS GR + CBC Collected: 11/12/2017 Status: F Source: [place] 9:53 AM [facility] REPOSITORY TYPE CODE TESTS RESULT OUT OF REFERENCE UNITS RANGE LAB WWBC 3.70-11.00 k/uL Low [place] WBC 1.70 LAB WRBC 3.90-5.20 m/uL Low [place] RBC 3.28 LAB WHGB 11.5-15.5 g/dL Low [place] Hemoglobin 10.7 LAB WHCT 36.0-46.0 % Low [place] Hematocrit 33.5 LAB WMCV 80.0-100.0 fL [place] High MCV 102.1 LAB WMCH 26.0-34.0 pg [place] MCH 32.6 LAB WMCHC 30.5-36.0 g/dL [place] MCHC 31.9 LAB WRDW 11.5-15.0 % [place] High RDW 16.1 LAB WPLT 150-400 k/uL [place] Platelet Cnt 168 LAB WMPV 9.0-12.7 fL [place] MPV 9.3 Result Comment: Test performed at: [facility] [place], [address] [place] [address]. LAB ABGRAN 1.45-7.50 k/uL Low Absol 0.18 Gran Count BMP PLUS FHC Collected: 11/12/2017 Status: F Source: [place] 9:53 AM [facility] REPOSITORY TYPE CODE TESTS RESULT OUT OF REFERENCE UNITS RANGE LAB NA 128-145 mmol/L Sodium 145 LAB K 3.6-5.1 mmol/L Potassium 4.0 LAB CL 98-108 mmol/L Chloride 99 LAB CO2 18-33 mmol/L CO2 28 LAB CRET 0.6-1.2 mg/dL Creatinine 1.10 LAB BUN 7-22 mg/dL BUN 16 LAB GLU 73-118 mg/dL Glucose High 184 LAB CA 8.0-10.3 mg/dL Calcium, Total 9.6 LAB MG 1.6-2.3 mg/dL Low Magnesium 1.5 LAB AGAP 9-18 mmol/L Anion Gap 18 LAB GFRAA eGFR- 59 Amer. LAB GFRNAA . eGFR-All Other Races 48 Result Comment: eGFR (Estimated GFR) Units of measure: mL/min/1.73 meters squared eGFR is derived from the reexpressed MDRD Study equation using the following parameters: serum creatinine, age, gender and race. The creatinine assay has been calibrated to be traceable to IDMS. An eGFR <60 mL/min/1.73m2 for >3 months is consistent with chronic kidney disease. Refer to KDOQI guidelines for clinical interpretation. In patients with unstable renal function, e.g. those with acute kidney injury, the eGFR may not accurately reflect actual GFR. PROGRESS Observed: 11/10/2017 Status: COMPLETED Source: [place] 11:06 AM [facility] REPOSITORY HNO ID: [id number] Author: Lc Elmore Service: (none) Author Type: Physician Type: Progress Notes Filed: 11/10/2017 11:13 AM Note Text: FOLLOW UP VISIT - POST OPLUMPECTOMY FOR DCIS, METASTATIC COLON CANCER, NIPPLE DISCHARGE, PORT-A-CATH FAILURE NAME[facility] NO.: [id number] DATE OF SERVICE: November 08, 2017 : 1940 REFERRING PHYSICIAN: Alvarez Mccoy MD Quyen presents for follow-up breast exam and follow-up after recent Port-A-Cath exchange. The patient had had a functional Port-A-Cath for approximately 2 years in the left subclavian vein. The patient noted pain at the port site after power infusion during a CAT scan. She then noted pain and swelling at the site and above the clavicle during her next chemotherapy treatment. Contrast study through the port demonstrated leakage where the catheter was affixed to the hub. My partner- Joan Hyatt, performed removal of left subclavian Port-A-Cath and replacement of a right subclavian Port-A-Cath. This is functional. The patient also notes scant brown nipple discharge from the left breast. This occurs most frequently during a warm shower. She notes no palpable abnormalities or other issues. 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 She returns here for follow-up of her breast related issues. 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 Her complicated history is as follows: The patient is a 74 year old female with a complaint of rectal bleeding and anemia. The patient initially underwent upper endoscopy which demonstrated no obvious source. The patient underwent colonoscopy by Dr. Chuck Penn on July 13 which demonstrated a fungating mass at the cecum ascending colon junction. Pathology returned as invasive adenocarcinoma. The patient is being seen by me today at the request of Dr. Penn for my opinion and advice regarding right colon cancer. The patient has a history of coronary disease and carotid stenosis. She has been on Plavix which was on hold after her endoscopy and prior to her surgical procedure. Additionally, she had undergone previous left carotid endarterectomy. Patient was recently evaluated by her metal patternmaker, Dr. Sujit Maya. She had undergone coronary bypass grafting in 2011 and is status post an LAD and left circumflex stent placement in November 2013. 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 She has good left ventricular ejection fraction. It was felt she was an acceptable risk for surgical intervention and did not require further preoperative cardiac diagnostic studies. I performed a laparoscopic right hemicolectomy on July 28, 2015. The pathology demonstrated: The tumor's size was 3.0x2.6.1.0 cm. Macroscopic tumor perforation was not identified. Histologic type: adenocarcinoma Histologic Grade: Low grade Histologic features for microsatellite instability - Intratumoral lymphocytic response: Mild to moderate Peritumoral lymphocytic response: Crohn's like lymphoid response: None Tumor subtype and differentiation: Not applicable MIcroscopic tumor extension: tumor invades through muscularis propria into subserosal adipose Lymphovascular invasion: None Perineural invasion: None Surgical margins were free of disease. Lymph nodes examined: 14 Lymph nodes involved: 0 PATHOLOGIC STAGE: pT 3, pN 0, M 0 Quyen noted loose stools had been continuing for the past few days at her August 15 follow-up. She has been maintaining a low residue diet. She also notes very transient dizziness. Post operative pain has been well controlled. The patient notes nausea. The patient`s appetite has been average. She was admitted to the hospital on August 22 with further looser stools and dizziness and some dehydration. Stool cultures were obtained which demonstrated no abnormalities. She was started on probiotics and Imodium and this significantly improved her stool frequency. She notes that at this point in time, her stools remain somewhat green but are less loose than they were. Overall she states her appetite still remains fair. She also notes that she is having issues of persistent nausea. She noted that this seemed similar to this as she had had in the past and was evaluated by Dr. Penn with upper endoscopy which was apparently unremarkable. The patient has been on a 20 mg Prilosec dose for some time. She notes that her nausea symptoms improve if she takes Maalox. The patient still is complaining of episodic transient dizziness that is worse if she raises up more quickly. Additionally, the patient underwent a recent follow-up mammogram. This was read as demonstrating a 8 mm mass with microcalcifications in her left breast. It was recommended biopsy listed BI-RADS Category 4. The patient did not have ultrasound performed. She irregularly performs a self breast exam and notes overall lumpy breasts but denies any specific changes. She denies skin changes, nipple discharge, or other difficulties. She had a previous mammogram that did demonstrate some microcalcifications similar mass. I obtained a CT scan of the abdomen and pelvis. This demonstrated no intra-abdominal abnormalities and demonstrated the anastomosis to have no signs of leakage inflammation or abscess which I felt could've been concerning for her abdominal complaints. There was noted to be in an area of asymmetric contrast enhancement in the liver which seemed to go away in delayed films. There were a list of possible options for this and MRI was recommended as an option. The patient had a previous CT scan preop which demonstrated similar findings from my standpoint and intraoperatively had no abnormalities noted in this location at the liver surface. I felt it was not necessary to have an MRI. Dr. Vasquez evaluated the patient and was concerned of those findings and recommended an MRI be obtained. The patient has since seen her primary care physician. Her oral hypoglycemic medication was stopped which has both cured her dizziness symptoms and her epigastric/nausea symptoms. We also obtained ultrasound which demonstrates no specific abnormalities in her left breast I performed a left side stereotactic biopsy for her abnormal mammogram on September 15, 2014. The pathology returned as DCIS. The patient notes some resolution of the bruising since the procedure but now notes a mass that worries her at the biopsy site. 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 Nuclear Grade - 2 (intermediate). Necrosis - present, single cell necrosis. Calcifications - present. Additional findings - focal fibrocystic changes. Negative for invasive carcinoma in the submitted specimen. I plan to obtain an MRI to assess her breast for additional or more extended pathology. MRI of the breast returned as: IMPRESSION: KNOWN BIOPSY PROVEN MALIGNANCY Longitudinally oriented area of mild enhancement in the central left breast thought to be due to postbiopsy hemorrhage/inflammation. Tumor along this entire length is thought less likely but cannot be excluded. Brandee condon/giovanny:10/12/2015 12:43:57 Cash Room Clerk: Marissa [facility] letter sent: Category 6 MRI BI-RADS: 6 Known biopsy proven malignancy Aerologist: [facility] Transcribe Date/Time: Oct 12 2015 12:43P Dictated by : BRANDEE AYALA MD This examination was interpreted and the report reviewed and electronically signed by: BRANDEE AYALA MD On Oct 12 2015 12:43PM Results-Findings * * *Final Report* * * DATE OF EXAM: Oct 11 2015 9:45AM [facility] 5875 - MRI BREAST YAN WWO / PROCEDURE REASON: DCIS (D05.10), ABNORMAL MAMMOGRAM OF LEFT BREAST (R92.8) * * * * Physician Interpretation * * * * #[id number] - MRI BREAST YAN WWO BREAST MRI OF BOTH BREASTS : 10/11/2015 HISTORY: Dcis (D05.10), Abnormal Mammogram Of Left Breast (R92.8). RESULT: No prior exams were available for comparison. Interpretation of this MRI was correlated with available mammograms. Gadolinium contrast calibrated to patient weight was injected. Axial T1, T2, pre and post contrast T1, and coronal images were obtained with a dedicated breast coil. The breasts are mostly fatty bilaterally. No mass, architectural distortion or abnormal enhancement is seen in the right breast. In the mid central right breast, centered just above the nipple is a longitudinal area of mild increased progressive enhancement. This is in the vicinity of recent biopsy. There is susceptibility artifact. However, the length of abnormal enhancement is much greater than the targeted lesion measuring approximately 4 cm in craniocaudal dimension. Maximal AP dimension is approximately 1.7 cm and maximal transverse dimension 1.3 cm. This abnormal enhancement could be biopsy related, perhaps representing postbiopsy hemorrhage/inflammation. No other areas of abnormal enhancement or architectural distortion are seen. There are no abnormalities seen in the axillary nodes region or infraclavicular nodes. The patient's abdominal MRI returned as: IMPRESSION: Large left hepatic lobe lesion, neoplastic in appearance and likely metastatic from the patient's known colonic CA. Partial SMV thrombus. COMMUNICATION: Communicated with: SUJIT Hernandez 10/13/2015 12:20 PM. Aerologist: [facility] Transcribe Date/Time: Oct 13 2015 12:26P Dictated by : BRANDEE AYALA MD This examination was interpreted and the report reviewed and electronically signed by: BRANDEE AYALA MD On Oct 13 2015 12:26PM Results-Findings * * *Final Report* * * DATE OF EXAM: Oct 13 2015 9:35AM [facility] 0445 - MRI ABDOMEN [facility] CONTRAST / PROCEDURE REASON: abnormal ct of lever r93.2 malignant neoplasm of ascending colon c18.2 dcia lef * * * * Physician Interpretation * * * * RESULT: MRI of the abdomen without and with intravenous contrast HISTORY: abnormal ct of lever r93.2 malignant neoplasm of ascending colon c18.2 dcis left TECHNIQUE: Using the torso phased array coil, axial STIR, T1 weighted in- and ils-hr-wunrj and coronal HASTE images were obtained. Flow sensitive imaging through the portal vein was performed, as well. Then, using a 3-D GRE T1 weighted sequence, dynamic images were obtained before, during and after the administration of 19ml cc intravenous Dotarem. Comparison: None FINDINGS: Liver: There is a large, heterogeneously enhancing mass within the entire lateral segment of the left hepatic lobe and extending into the medial segment as well. This mass measures approximately 8.2 x 5.8 x 6.3 cm. This is most consistent with neoplasm, perhaps metastatic given the patient's history of colonic carcinoma. No additional hepatic lesions are seen. There is patchy hepatic fatty change throughout the right hepatic lobe. Biliary tract: The common bile duct is normal in course and caliber. No filling defect is identified within the common duct. Gallbladder: Absent Pancreatic duct: The visualized portions of the pancreatic duct are normal. Spleen: No lesion is identified. Pancreas: The pancreas enhances normally and is without focal lesions. Adrenal glands: No mass is identified Kidneys: The visualized portions of the kidneys are normal. No adenopathy is identified. There is partial, nonocclusive thrombus within the superior mesenteric vein just cephalad to its 1st branch. She had undergone liver resection with a left hepatectomy for metastatic colon cancer at April 27, 2016. She was doing well post her liver resection and then we proceeded with her surgical resection for her DCIS. I performed a left needle localization lumpectomy/partial mastectomy on July 05, 2016. The pathology demonstrated: MICROSCOPIC DIAGNOSIS Left breast mass, lumpectomy with needle localization: Focal ductal carcinoma in situ. Changes consistent with previous biopsy site. See cancer summary below. SJ:carmen 07/07/16 DUCTAL CARCINOMA IN SITU SUMMARY: Specimen - partial breast Procedure - excision with wire-guided localization Lymph node sampling ? no lymph nodes present Specimen integrity - single intact specimen Specimen size ? 15 x 9 x 4 cm Specimen laterality ? left Tumor site ? not specified Size (extent) of DCIS ? 0.3 cm in greatest dimension. See comment. 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 Architectural pattern - cribriform Nuclear grade - grade 2 (intermediate) Necrosis ? not identified Margins ? margin uninvolved by ductal carcinoma in situ. The tumor is 2 cm away from the closest anterior and posterior margins Treatment effect - no known presurgical therapy. Lymph nodes ? not submitted Distant metastasis ? not replicable Additional Pathologic Findings ? fibrocystic changes. - Focal changes consistent with previous biopsy site. Ancillary Studies from previous specimen ([id number] / [id number]): ER ? positive (65%, strong) FL ? positive (54%, strong) Her2 sophie (IHC) ? equivocal (2+) Her2 by FISH - not performed. Microcalcifications ? present in non-neoplastic tissue. Clinical history - Please make reference to previous specimen ([id number]) left breast, stereotactic core biopsy with diagnosis of ductal carcinoma in situ. Pathologic Staging: pTis(DCIS) pNx Mx The above summary is in compliance with [employer] (CAP) Cancer Protocols Checklist and [place] Joint Committee on Cancer (AJCC), Staging Manual, 7th Ed. COMMENT A minute focus of ductal carcinoma in situ is noted adjacent to the previous biopsy site. The ductal carcinoma in situ is measured on the glass slide. The ductal carcinoma in situ in the previous breast biopsy ([id number]) measures 0.4 x 0.2 cm in greatest dimension and present in 2 out of 4 blocks. Case has been reviewed in consultation with Dr. Segovia who concurs with the above diagnosis. IDC:SARAH Napier notes the site is well healing. Post operative pain has been well controlled. The patient denies nausea. The patient`s appetite has been good. Given the size of her DCIS she was not felt to need radiation following her procedure. She is doing a self breast exam and notes no palpable abnormalities. She recently underwent follow-up mammogram on February 13, 2017. This demonstrated: IMPRESSION: PROBABLY BENIGN The grouped calcifications in the left breast are probably benign. A follow-up mammogram in 6 months is recommended to demonstrate stability. Alvarez oro/giovanny:02/13/2017 12:06:29 Cash Room Clerk: Aubrie CAZARES(R)(M), [facility] letter sent: # Mo FU Mammogram BI-RADS: 3 Probably benign Aerologist: Giovanny Transcribe Date/Time: Feb 13 2017 11:10A Dictated by: ALVAREZ CORONADO MD This examination was interpreted and the report reviewed and electronically signed by: ALVAREZ CORONADO MD on Feb 13 2017 12:06PM ?EST The patient follow up study was found to have recurrence of her tumor at the edge of the previous resection in the liver and was felt to be a lung metastases. She is currently undergoing salvage/palliative chemotherapy. Overall she is doing well with these treatments. She had 6 month follow-up mammogram and ultrasound. This demonstrated: IMPRESSION: SUSPICIOUS FINDING - BIOPSY SHOULD BE CONSIDERED - FOLLOW-UP RECOMMENDED The 7 mm dilated duct in the left breast resembles a solid mass or a papilloma and is suspicious of malignancy. ?An ultrasound guided biopsy is recommended. Juancarlos andersen/giovanny:10/17/2017 15:09:57 Cash Room Clerk: Aubrie CAZARES (R)(Luis Miguel), [facility] letter sent: Abnormal ? Mammogram BI-RADS: 4 Suspicious finding - Biopsy should be considered Ultrasound BI-RADS: 4 Suspicious finding - Biopsy should be considered Aerologist: Giovanny Transcribe Date/Time: Oct 17 2017 ?1:56P Dictated by : JUANCARLOS SNOW MD This examination was interpreted and the report reviewed and electronically signed by: JUANCARLOS SNOW MD on Oct 17 2017 ?3:09PM ?EST Results-Findings * * *Final Report* * * DATE OF EXAM: Oct 17 2017 ?2:54PM ? WRU ? [id number] ?- ?[facility] [employer] BREAST [facility] ?/ PROCEDURE REASON: 6 month bilateral / left breast / abnormal mammogram ?? ? * * * * Physician Interpretation * * * * ?#[id number] - [facility] DIAGNOSTIC YAN BILATERAL DIGITAL DIAGNOSTIC MAMMOGRAM WITH CAD: 10/17/2017 HISTORY: 6 Month Bilateral / Left Breast / Abnormal Mammogram. RESULT: TECHNIQUE: ?The study was acquired using full field digital technology and interpreted from soft copy. Current study was also evaluated with a Computer Aided Detection (CAD). Comparison is made to exams dated: ?02/13/2017 mammogram, 09/04/2016 mammogram - [facility], 09/06/2015 mammogram, and 09/03/2015 mammogram. There are scattered fibroglandular elements in both breasts. The left breast has post-operative findings. There are grouped pleomorphic calcifications in the left breast at 9 o'clock anterior depth. No other significant masses, calcifications, or other findings are seen in either breast. SUSPICIOUS FINDING - BIOPSY SHOULD BE CONSIDERED The grouped pleomorphic calcifications in the left breast are suspicious of malignancy. ?A stereotactic biopsy is recommended. There is no abnormality seen in the left breast to correspond with the discharge from the nipple, however, clinical correlation is recommended. #[id number] - [facility] [employer] BREAST [employer] [facility] ULTRASOUND OF LEFT BREAST: 10/17/2017 RESULT: Comparison is made to exams dated: ?02/13/2017 mammogram, 09/04/2016 mammogram - [facility], 09/06/2015 mammogram, and 09/03/2015 mammogram. Real-time ultrasound of the left breast was performed. There is a 7 mm dilated duct in the left breast central to the nipple in the retroareolar region. ?This dilated duct displays internal echoes. VITALS: Blood pressure 138/70, pulse 74, weight 98 kg (216 lb). On examination, patient's breast exam external is unremarkable with no nipple retraction, skin changes or other specific abnormalities. Her incision is well-healed. Bilateral breast exam demonstrates no specific palpable abnormalities. Her axillary exam is negative bilaterally. Intraoffice ultrasound to demonstrate the area just to the medial aspect of her left nipple. There was felt to be truly about 4 mm in size just approximately 5 mm below the skin. This does seem to be a site of a mildly dilated duct. IMPRESSION: Status Post needle localization lumpectomy/partial mastectomy for left breast DCIS, metastatic colon cancer to the lung and liver. Recommended biopsy for left breast medial microcalcifications and left periareolar mass, likely papilloma. The left breast microcalcifications will be a stereotactic biopsy. I performed this biopsy versus this is the most likely chance of returning as a malignancy. If this was unremarkable, then I would recommend ultrasound-guided excisional biopsy with wire placement for the periareolar mass. This would most likely not be malignant. I had an extensive discussion about the timing options, alternatives, and possible treatment options. Based on the various possible biopsy diagnoses for both the microcalcifications and the periareolar mass. This discussion took approximately 45 minutes. I spoke with Dr. Vasquez. He will hold the patient's treatment due to absolute neutropenia. He will check a repeat blood count on Sunday. If this is improved. The patient is instructed to hold her anticoagulation and we will plan for stereotactic biopsy on Sunday PLAN: Recommended biopsy for left breast medial microcalcifications and left periareolar mass, likely papilloma. The left breast microcalcifications will be a stereotactic biopsy. I performed this biopsy versus this is the most likely chance of returning as a malignancy. If this was unremarkable, then I would recommend ultrasound-guided excisional biopsy with wire placement for the periareolar mass. This would most likely not be malignant. I had an extensive discussion about the timing options, alternatives, and possible treatment options. Based on the various possible biopsy diagnoses for both the microcalcifications and the periareolar mass. This discussion took approximately 45 minutes. I spoke with Dr. Vasquez. He will hold the patient's treatment due to absolute neutropenia. He will check a repeat blood count on Sunday. If this is improved. 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 Lc Elmore MD PROGRESS Observed: 11/09/2017 Status: COMPLETED Source: [place] 11:38 AM [facility] REPOSITORY HNO ID: [id number] Author: Sujit Vasquez Service: (none) Author Type: Physician Type: Progress Notes Filed: 11/09/2017 1:36 PM Note Text: Diagnosis: 1) Metastatic colon cancer. KRAS - No variant detected [Reference sequence: (NM_[id number])]. NRAS - No variant detected [Reference sequence: ([id number])]. BRAF - No variant detected [Reference sequence: (NM_[id number])]. 2) DCIS. 3) IMV thrombus. 4) DVT. HPI: The patient is a 77 yo female with a PMH significant for hyperlipidemia, HTN, CAD (PR, CABG x2 2011; stent x1 2013), PVD (carotid artery stenosis s/p CEA left side 2012), sleep apnea (uses CPAP), arthritis (chronic lower back and from lower thoracic area to the neck pain). She developed rectal bleeding in March and underwent evaluation with EGD. Evidently that study was normal. Next underwent colonoscopy and was observed to have a tumor in the cecum. Had normal colonoscopy about 2 years prior. Underwent right hemicolectomy 07/28/2015. 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 Through muscularis propria into subserosal adipose tissue, but not extending to the serosal surface. All margins negative. No lymphovascular invasion. No perineural invasion. No tumor deposits. None of 14 nodes positive. No evidence MSI by IHC. Had screening mammogram 08/2015. Abnormality left breast. Dx mammo and US 09/06/2015. 6.5 x 7.9 mm nodular density with focal calcifications in fthe slightly upper lateral portion of the left breast. Underwent stereotactic core biopsy 09/15/2015. DCIS, cribriform and solid, grade 2, single cell necrosis; no invasive carcinoma. MRI of the breast 10/11/2015: Longitudinally oriented area of mild enhancement in the central left breast thought to be due to postbiopsy hemorrhage/inflammation. Tumor along this entire length is thought less likely but cannot be excluded. MRI of the abdomen and pelvis 10/13/2015: Liver: There is a large, heterogeneously enhancing mass within the entire lateral segment of the left hepatic lobe and extending into the medial segment as well. This mass measures approximately 8.2 x 5.8 x 6.3 cm. This is most consistent with neoplasm, perhaps metastatic given the patient's history of colonic carcinoma. No additional hepatic lesions are seen. There is patchy hepatic fatty change throughout the right hepatic lobe. Partial, nonocclusive thrombus within the superior mesenteric vein just cephalad to its 1st branch. Liver biopsy--consistent with colorectal primary. Patient received the fourth cycle chemotherapy on 12/22/2015. She developed profuse diarrhea and presented to the emergency department for dehydration and shortness of breath. She was found to be an RVR atrial fibrillation with significant hypomagnesemia. She was admitted and started on IV hydration and magnesium replacement as well as medical management of atrial fibrillation. The diarrhea however continued for several more days during which she was given supportive care. Following that she developed an episode of ileus which extend her hospital stay. She was eventually discharged to rehabilitation. This morning she underwent an ultrasound of both lower extremities. She was found to have an acute DVT in the right common femoral vein. Treated with apixaban. Underwent left-sided lumpectomy for DCIS. Specimen - partial breast Procedure - excision with wire-guided localization Lymph node sampling ? no lymph nodes present Specimen integrity - single intact specimen Specimen size ? 15 x 9 x 4 cm Specimen laterality ? left Tumor site ? not specified Size (extent) of DCIS ? 0.3 cm in greatest dimension. See comment. 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 Architectural pattern - cribriform Nuclear grade - grade 2 (intermediate) Necrosis ? not identified Margins ? margin uninvolved by ductal carcinoma in situ. The tumor is 2 cm away from the closest anterior and posterior margins Treatment effect - no known presurgical therapy. Lymph nodes ? not submitted Distant metastasis ? not replicable Additional Pathologic Findings ? fibrocystic changes. - Focal changes consistent with previous biopsy site. Previous therapy: 1) FOLFOX x1; FOLFOX with Vectibix x3. 2) Underwent left hepatectomy 04/28/2016. Final pathology reviewed. Positive margin was cauterized during surgery. 3) Xeloda. Started cycle #3 11/27/2016 through 02/2017. Presented 01/03 for OV. Had syncopal episode. Taken to ED. Hydrated and felt better. No laboratory or EKG findings of cardiac event. Current therapy: 1) Infusional 5-fluorouracil with oxaliplatin. Presents for ongoing oncologic management--evaluation for cycle 3. Interim history: No adverse reaction to this past cycle. However she is having progressive neuropathy of feet. Previously she said she had some numbness from the balls of the feet distally on the undersurface. Yesterday however set her both her feet felt like stubs. In fact when she was walking up to the check encounter, she put weight wrong on her right ankle and felt a twinge of pain in the forefoot. This still hurting somewhat today. She hasn't had any increase in swelling. She had lingering symptoms of malaise and fatigue little longer this time. Cough is improving albeit not completely resolved. She is no longer wheezing. Postoperative findings were identified in the left breast. There was a group of pleomorphic calcifications in the left breast at the 9:00 anterior depth. Real-time ultrasound of this area demonstrated a 7 mm dilated duct central to the nipple in the retroareolar region. In all this was thought to represent a solid mass or papilloma suspicious for malignancy. Appointment with general surgery has not yet been made. PMH, medications and allergies as below personally reviewed by me today. Any changes documented in appropriate section. ROS: Constitutional: Denies episodes of fever and night sweats. Neuro: Denies vertigo and dizziness. HEENT: No recent change in voice, vision or hearing (significant b/l hearing loss--stable). Resp: See above. CVS: Denies exertional chest pain, PND, orthopnea. GI: See above. : No dysuria or gross hematuria. Stress incontinence stable. Endo: Denies hot flashes. Denies polyuria and polydipsia. Denies heat and cold intolerance. Musculoskeletal: Denies bone, back, joint and muscular pain. Derm: Denies rash. Denies diffuse pruritis. Heme: No unusual bleeding and/or unexplained bruising. Psych: Normal mood. PHYSICAL EXAM: Vitals: Blood pressure 109/62, pulse 70, temperature 36.8 ?C (98.2 ?F), weight 98 kg (216 lb). Well-appearing and in no acute distress. EYES: Sclerae are anicteric bilaterally. NECK: Supple. No enlargement of thyroid. LYMPHATIC: There is no palpable cervical, supraclavicular adenopathy. RESPIRATORY: Inspiratory breath sounds are of diminished intensity in all pedersen, but much more clear. CARDIOVASCULAR: Rhythm is regular today. Normal intensity S1/S2. ABDOMEN: The abdomen is nondistended and non-tender. Extremities: Free of edema. SKIN: No jaundice or rash. No petechiae. NEUROLOGIC: foil cutter II-XII are grossly intact. No focal motor weakness. ASSESSMENT/PLAN: (C18.2) Malignant neoplasm of ascending colon (HCC) (primary encounter diagnosis) (C78.7) Liver metastasis (HCC) Assessment: -Patient had completed several months of capecitabine following resection for an isolated metastasis. She tolerated capecitabine only marginally and was on lower doses for the last couple cycles. She had marked difficulty with diarrhea, dehydration and several hospitalizations/ER visits for toxicity. However, lung nodule had been stable. -Recent PD with new liver and progressive lung metastasis. -First cycle was complicated by port line rupture. -By history, she did not have an allergic reaction oxaliplatin. Rather in retrospect she had influenza with viral bronchitis and wheezing just prior to treatment and then laryngeal dysesthesia triggered by cold air causing laryngeal spasm and exacerbation of bronchospasm. Symptoms were relieved quickly with the use of MDI inhaler. 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 I recommended changing to irinotecan. I discussed the rationale, logistics, potential risks (including ), benefits and alternatives, as well as the personnel involved in the administration of FOLFIRI. I answered her questions in detail and she verbalized understanding and agreed with the recommended therapy. Please see the electronic consent document for details of doses and schedule. Plan: -Begin FOLFIRI without bolus 5-FU on Sunday. -CT scan after 2 cycles. 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 Plan: -Continue Xarelto. 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 -We discussed some general treatments for breast cancer should this prove to be the case. Surgery would be indicated because it would be potentially curative. Plan: -My office staff will arrange NELL appointment with Dr. Elmore. Sujit Vasquez, [facility]LLEN ABS GR + CBC Collected: 11/09/2017 Status: F Source: [place] 11:30 AM [facility] REPOSITORY TYPE CODE TESTS RESULT OUT OF REFERENCE UNITS RANGE LAB WWBC 3.70-11.00 k/uL Low [facility] WBC 1.32 Result Comment: Result rechecked. LAB WRBC 3.90-5.20 m/uL [facility] RBC Low 2.97 LAB WHGB 11.5-15.5 g/dL [facility] Low Hemoglobin 9.7 LAB WHCT 36.0-46.0 % [facility] Low Hematocrit 30.0 LAB WMCV 80.0-100.0 fL [facility] MCV High 101.0 LAB WMCH 26.0-34.0 pg [place] MCH 32.7 LAB WMCHC 30.5-36.0 g/dL [facility] MCHC 32.3 LAB WRDW 11.5-15.0 % [facility] RDW High 15.1 LAB WPLT 150-400 k/uL [facility] Low Platelet Cnt 136 LAB WMPV 9.0-12.7 fL [place] MPV 9.9 Result Comment: Test performed at: [facility], [address] [place], [place] [address] [place] [address]. LAB ABGRAN 1.45-7.50 k/uL Low Absol 0.31 Gran Count BMP PLUS FHC Collected: 11/09/2017 Status: F Source: [place] 11:30 AM [facility] REPOSITORY TYPE CODE TESTS RESULT OUT OF REFERENCE UNITS RANGE LAB NA 128-145 mmol/L Sodium 142 LAB K 3.6-5.1 mmol/L Potassium 3.8 LAB CL 98-108 mmol/L Chloride 101 LAB CO2 18-33 mmol/L CO2 28 LAB CRET 0.6-1.2 mg/dL Creatinine 1.20 LAB BUN 7-22 mg/dL BUN 14 LAB GLU 73-118 mg/dL Glucose High 190 LAB CA 8.0-10.3 mg/dL Calcium, Total 9.0 LAB MG 1.6-2.3 mg/dL Low Magnesium 1.5 LAB AGAP 9-18 mmol/L Anion Gap 13 LAB GFRAA eGFR- 53 Amer. LAB GFRNAA . eGFR-All Other Races 44 Result Comment: eGFR (Estimated GFR) Units of measure: mL/min/1.73 meters squared eGFR is derived from the reexpressed MDRD Study equation using the following parameters: serum creatinine, age, gender and race. The creatinine assay has been calibrated to be traceable to IDMS. An eGFR <60 mL/min/1.73m2 for >3 months is consistent with chronic kidney disease. Refer to KDOQI guidelines for clinical interpretation. In patients with unstable renal function, e.g. those with acute kidney injury, the eGFR may not accurately reflect actual GFR. HEPATIC FUNCTN PANEL Collected: 11/09/2017 Status: F Source: [place] 11:30 AM [facility] REPOSITORY TYPE CODE TESTS RESULT OUT OF REFERENCE UNITS RANGE LAB ALB 3.9-4.9 g/dL Low Albumin 3.7 LAB TBIL 0.2-1.3 mg/dL Bilirubin, Total 0.3 LAB CBIL <0.2 mg/dL Bilirubin,Conjuga <0.2 maikel LAB ALKP 32-117 U/L Alkaline High Phosphatase 141 LAB AST 13-35 U/L AST 27 LAB ALT 7-38 U/L ALT 29 LAB TP 6.3-8.0 g/dL Protein, Total 6.3 Performed By: #### HFP, CEA #### [facility] [address] [place], [place] [address] CEA Collected: 11/09/2017 Status: F Source: [place] 11:30 AM [facility] REPOSITORY TYPE CODE TESTS RESULT OUT OF RANGE REFERENCE UNITS LAB CEA 0.0-2.9 ng/mL High CEA 5.6 Result Comment: Test analyzed by the Nicholas DxI method. Performed By: #### HFP, CEA #### [facility] [address] [place], [place] [address] PROGRESS Observed: 11/09/2017 Status: COMPLETED Source: [place] 11:27 AM [facility] REPOSITORY HNO ID: [id number] Author: Sujit Vasquez Service: (none) Author Type: Physician Type: Progress Notes Filed: 11/09/2017 2:45 PM Note Text: Diagnosis: 1) Metastatic colon cancer. KRAS - No variant detected [Reference sequence: (NM_004985.4)]. NRAS - No variant detected [Reference sequence: (NM_002524.4)]. BRAF - No variant detected [Reference sequence: (NM_004333.4)]. 2) DCIS. 3) IMV thrombus. 4) DVT. HPI: The patient is a 77 yo female with a PMH significant for hyperlipidemia, HTN, CAD (PR, CABG x2 2011; stent x1 2013), PVD (carotid artery stenosis s/p CEA left side 2012), sleep apnea (uses CPAP), arthritis (chronic lower back and from lower thoracic area to the neck pain). She developed rectal bleeding in March and underwent evaluation with EGD. Evidently that study was normal. Next underwent colonoscopy and was observed to have a tumor in the cecum. Had normal colonoscopy about 2 years prior. Underwent right hemicolectomy 07/28/2015. 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 Through muscularis propria into subserosal adipose tissue, but not extending to the serosal surface. All margins negative. No lymphovascular invasion. No perineural invasion. No tumor deposits. None of 14 nodes positive. No evidence MSI by IHC. Had screening mammogram 08/2015. Abnormality left breast. Dx mammo and US 09/06/2015. 6.5 x 7.9 mm nodular density with focal calcifications in fthe slightly upper lateral portion of the left breast. Underwent stereotactic core biopsy 09/15/2015. DCIS, cribriform and solid, grade 2, single cell necrosis; no invasive carcinoma. MRI of the breast 10/11/2015: Longitudinally oriented area of mild enhancement in the central left breast thought to be due to postbiopsy hemorrhage/inflammation. Tumor along this entire length is thought less likely but cannot be excluded. MRI of the abdomen and pelvis 10/13/2015: Liver: There is a large, heterogeneously enhancing mass within the entire lateral segment of the left hepatic lobe and extending into the medial segment as well. This mass measures approximately 8.2 x 5.8 x 6.3 cm. This is most consistent with neoplasm, perhaps metastatic given the patient's history of colonic carcinoma. No additional hepatic lesions are seen. There is patchy hepatic fatty change throughout the right hepatic lobe. Partial, nonocclusive thrombus within the superior mesenteric vein just cephalad to its 1st branch. Liver biopsy--consistent with colorectal primary. Patient received the fourth cycle chemotherapy on 12/22/2015. She developed profuse diarrhea and presented to the emergency department for dehydration and shortness of breath. She was found to be an RVR atrial fibrillation with significant hypomagnesemia. She was admitted and started on IV hydration and magnesium replacement as well as medical management of atrial fibrillation. The diarrhea however continued for several more days during which she was given supportive care. Following that she developed an episode of ileus which extend her hospital stay. She was eventually discharged to rehabilitation. This morning she underwent an ultrasound of both lower extremities. She was found to have an acute DVT in the right common femoral vein. Treated with apixaban. Underwent left-sided lumpectomy for DCIS. Specimen - partial breast Procedure - excision with wire-guided localization Lymph node sampling ? no lymph nodes present Specimen integrity - single intact specimen Specimen size ? 15 x 9 x 4 cm Specimen laterality ? left Tumor site ? not specified Size (extent) of DCIS ? 0.3 cm in greatest dimension. See comment. 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 Architectural pattern - cribriform Nuclear grade - grade 2 (intermediate) Necrosis ? not identified Margins ? margin uninvolved by ductal carcinoma in situ. The tumor is 2 cm away from the closest anterior and posterior margins Treatment effect - no known presurgical therapy. Lymph nodes ? not submitted Distant metastasis ? not replicable Additional Pathologic Findings ? fibrocystic changes. - Focal changes consistent with previous biopsy site. Previous therapy: 1) FOLFOX x1; FOLFOX with Vectibix x3. 2) Underwent left hepatectomy 04/28/2016. Final pathology reviewed. Positive margin was cauterized during surgery. 3) Xeloda. Started cycle #3 11/27/2016 through 02/2017. 4) Infusional 5-fluorouracil with oxaliplatin on diagnosis metastases lung. Current therapy: 1) FOLFIRI. Presents for ongoing oncologic management--evaluation for cycle 2. Interim history: She had more fatigue and generalized weariness with the first cycle. She also had dizziness was relieved when she stopped diuretic and decreased dose of beta bryce by 50%. She has since resumed half dose Lasix. She still maintaining 50% beta bryce dosage. She developed mouth sores particularly on the right side earlier in the week and BMX has helped. Her appetite is still doing well. No diarrhea. Still has occasional cough with wheezing. She has noticed more shortness of breath with exertion. No palpitation or feelings of pressure in the chest. Symptoms of neuropathy stable. PMH, medications and allergies as below personally reviewed by me today. Any changes documented in appropriate section. ROS: Constitutional: Denies episodes of fever and night sweats. Neuro: Denies vertigo and dizziness. HEENT: No recent change in voice, vision or hearing (significant b/l hearing loss--stable). Resp: See above. CVS: Denies exertional chest pain, PND, orthopnea. GI: See above. : No dysuria or gross hematuria. Stress incontinence stable. Endo: Denies hot flashes. Denies polyuria and polydipsia. Denies heat and cold intolerance. Musculoskeletal: Denies bone, back, joint and muscular pain. Derm: Denies rash. Denies diffuse pruritis. Heme: No unusual bleeding and/or unexplained bruising. Psych: Normal mood. PHYSICAL EXAM: Vitals: Blood pressure 109/62, temperature 36.8 ?C (98.2 ?F), weight 98 kg (216 lb). Well-appearing and in no acute distress. EYES: Sclerae are anicteric bilaterally. NECK: Supple. No enlargement of thyroid. LYMPHATIC: There is no palpable cervical, supraclavicular adenopathy. RESPIRATORY: Inspiratory breath sounds are of diminished intensity in all pedersen and remain clear with no rhonchi or wheeze currently. CARDIOVASCULAR: Rhythm is irregular today. ABDOMEN: The abdomen is nondistended and non-tender. Extremities: Free of edema. SKIN: No jaundice or rash. No petechiae. NEUROLOGIC: foil cutter II-XII are grossly intact. No focal motor weakness. ASSESSMENT/PLAN: (C18.2) Malignant neoplasm of ascending colon (HCC) (primary encounter diagnosis) (C78.7) Liver metastasis (HCC) Assessment: -Patient had completed several months of capecitabine following resection for an isolated metastasis. She tolerated capecitabine only marginally and was on lower doses for the last couple cycles. She had marked difficulty with diarrhea, dehydration and several hospitalizations/ER visits for toxicity. However, lung nodule had been stable. -Recent PD with new liver and progressive lung metastasis. -First cycle was complicated by port line rupture. -By history, she did not have an allergic reaction oxaliplatin. Rather in retrospect she had influenza with viral bronchitis and wheezing just prior to treatment and then laryngeal dysesthesia triggered by cold air causing laryngeal spasm and exacerbation of bronchospasm. Symptoms were relieved quickly with the use of MDI inhaler. 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 Plan: -Will hold chemotherapy Sunday due to neutropenia. -CT scan after 2 cycles. 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 Plan: -Continue Xarelto. 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 Plan: -Will need biopsy. Sujit Vasquez DO CNOVSP Observed: 11/09/2017 Status: COMPLETED Source: [place] 11:00 AM [facility] REPOSITORY Visit (SP) Office ([place]) QUYEN COKER ([id number]) 1940 F [facility] Date Time Provider Department 11/09/17 11:00 AM SUJIT VASQUEZ During your visit today, we recorded the following information about you: Temperature Blood pressure Weight 98.2 degrees 109/62 98 kg Sujit Vasquez DO 11/09/2017 2:45 PM Signed Diagnosis: 1) Metastatic colon cancer. KRAS - No variant detected [Reference sequence: (NM_[id number])]. NRAS - No variant detected [Reference sequence: ([id number])]. BRAF - No variant detected [Reference sequence: (NM_[id number])]. 2) DCIS. 3) IMV thrombus. 4) DVT. HPI: The patient is a 77 yo female with a PMH significant for hyperlipidemia, HTN, CAD (PR, CABG x2 2011; stent x1 2013), PVD (carotid artery stenosis s/p CEA left side 2012), sleep apnea (uses CPAP), arthritis (chronic lower back and from lower thoracic area to the neck pain). She developed rectal bleeding in March and underwent evaluation with EGD. Evidently that study was normal. Next underwent colonoscopy and was observed to have a tumor in the cecum. Had normal colonoscopy about 2 years prior. Underwent right hemicolectomy 07/28/2015. 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 Through muscularis propria into subserosal adipose tissue, but not extending to the serosal surface. All margins negative. No lymphovascular invasion. No perineural invasion. No tumor deposits. None of 14 nodes positive. No evidence MSI by IHC. Had screening mammogram 08/2015. Abnormality left breast. Dx mammo and US 09/06/2015. 6.5 x 7.9 mm nodular density with focal calcifications in fthe slightly upper lateral portion of the left breast. Underwent stereotactic core biopsy 09/15/2015. DCIS, cribriform and solid, grade 2, single cell necrosis; no invasive carcinoma. MRI of the breast 10/11/2015: Longitudinally oriented area of mild enhancement in the central left breast thought to be due to postbiopsy hemorrhage/inflammation. Tumor along this entire length is thought less likely but cannot be excluded. MRI of the abdomen and pelvis 10/13/2015: Liver: There is a large, heterogeneously enhancing mass within the entire lateral segment of the left hepatic lobe and extending into the medial segment as well. This mass measures approximately 8.2 x 5.8 x 6.3 cm. This is most consistent with neoplasm, perhaps metastatic given the patient's history of colonic carcinoma. No additional hepatic lesions are seen. There is patchy hepatic fatty change throughout the right hepatic lobe. Partial, nonocclusive thrombus within the superior mesenteric vein just cephalad to its 1st branch. Liver biopsy--consistent with colorectal primary. Patient received the fourth cycle chemotherapy on 12/22/2015. She developed profuse diarrhea and presented to the emergency department for dehydration and shortness of breath. She was found to be an RVR atrial fibrillation with significant hypomagnesemia. She was admitted and started on IV hydration and magnesium replacement as well as medical management of atrial fibrillation. The diarrhea however continued for several more days during which she was given supportive care. Following that she developed an episode of ileus which extend her hospital stay. She was eventually discharged to rehabilitation. This morning she underwent an ultrasound of both lower extremities. She was found to have an acute DVT in the right common femoral vein. Treated with apixaban. Underwent left-sided lumpectomy for DCIS. Specimen - partial breast Procedure - excision with wire-guided localization Lymph node sampling ? no lymph nodes present Specimen integrity - single intact specimen Specimen size ? 15 x 9 x 4 cm Specimen laterality ? left Tumor site ? not specified Size (extent) of DCIS ? 0.3 cm in greatest dimension. See comment. 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 Architectural pattern - cribriform Nuclear grade - grade 2 (intermediate) Necrosis ? not identified Margins ? margin uninvolved by ductal carcinoma in situ. The tumor is 2 cm away from the closest anterior and posterior margins Treatment effect - no known presurgical therapy. Lymph nodes ? not submitted Distant metastasis ? not replicable Additional Pathologic Findings ? fibrocystic changes. - Focal changes consistent with previous biopsy site. Previous therapy: 1) FOLFOX x1; FOLFOX with Vectibix x3. 2) Underwent left hepatectomy 04/28/2016. Final pathology reviewed. Positive margin was cauterized during surgery. 3) Xeloda. Started cycle #3 11/27/2016 through 02/2017. 4) Infusional 5-fluorouracil with oxaliplatin on diagnosis metastases lung. Current therapy: 1) FOLFIRI. Presents for ongoing oncologic management--evaluation for cycle 2. Interim history: She had more fatigue and generalized weariness with the first cycle. She also had dizziness was relieved when she stopped diuretic and decreased dose of beta bryce by 50%. She has since resumed half dose Lasix. She still maintaining 50% beta bryce dosage. She developed mouth sores particularly on the right side earlier in the week and BMX has helped. Her appetite is still doing well. No diarrhea. Still has occasional cough with wheezing. She has noticed more shortness of breath with exertion. No palpitation or feelings of pressure in the chest. Symptoms of neuropathy stable. PMH, medications and allergies as below personally reviewed by me today. Any changes documented in appropriate section. ROS: Constitutional: Denies episodes of fever and night sweats. Neuro: Denies vertigo and dizziness. HEENT: No recent change in voice, vision or hearing (significant b/l hearing loss--stable). Resp: See above. CVS: Denies exertional chest pain, PND, orthopnea. GI: See above. : No dysuria or gross hematuria. Stress incontinence stable. Endo: Denies hot flashes. Denies polyuria and polydipsia. Denies heat and cold intolerance. Musculoskeletal: Denies bone, back, joint and muscular pain. Derm: Denies rash. Denies diffuse pruritis. Heme: No unusual bleeding and/or unexplained bruising. Psych: Normal mood. PHYSICAL EXAM: Vitals: Blood pressure 109/62, temperature 36.8 ?C (98.2 ?F), weight 98 kg (216 lb). Well-appearing and in no acute distress. EYES: Sclerae are anicteric bilaterally. NECK: Supple. No enlargement of thyroid. LYMPHATIC: There is no palpable cervical, supraclavicular adenopathy. RESPIRATORY: Inspiratory breath sounds are of diminished intensity in all pedersen and remain clear with no rhonchi or wheeze currently. CARDIOVASCULAR: Rhythm is irregular today. ABDOMEN: The abdomen is nondistended and non-tender. Extremities: Free of edema. SKIN: No jaundice or rash. No petechiae. NEUROLOGIC: foil cutter II-XII are grossly intact. No focal motor weakness. ASSESSMENT/PLAN: (C18.2) Malignant neoplasm of ascending colon (HCC) (primary encounter diagnosis) (C78.7) Liver metastasis (HCC) Assessment: -Patient had completed several months of capecitabine following resection for an isolated metastasis. She tolerated capecitabine only marginally and was on lower doses for the last couple cycles. She had marked difficulty with diarrhea, dehydration and several hospitalizations/ER visits for toxicity. However, lung nodule had been stable. -Recent PD with new liver and progressive lung metastasis. -First cycle was complicated by port line rupture. -By history, she did not have an allergic reaction oxaliplatin. Rather in retrospect she had influenza with viral bronchitis and wheezing just prior to treatment and then laryngeal dysesthesia triggered by cold air causing laryngeal spasm and exacerbation of bronchospasm. Symptoms were relieved quickly with the use of MDI inhaler. 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 Plan: -Will hold chemotherapy Sunday due to neutropenia. -CT scan after 2 cycles. 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 Plan: -Continue Xarelto. 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 Plan: -Will need biopsy. Sujit Vasquez DO Referring Provider: SUJIT VASQUEZ [[id number]] Allergies As of Date: 11/09/2017 Noted Allergy Reaction CORGARD (NADOLOL) 07/21/2015 12 - Shortness of Breath PENN 07/21/2015 12 - Shortness of Breath MORPHINE 07/21/2015 12 - Shortness of Breath Comments: Pt says she can tolerate oxycodone. PENICILLINS 07/21/2015 12 - Shortness of Breath PRAVACHOL (PRAVASTATIN) 07/21/2015 12 - Shortness of Breath SULFITE 07/21/2015 12 - Shortness of Breath Comments: Sulfites in food. Verified by refrigerator tester. ZOCOR (SIMVASTATIN) 07/21/2015 12 - Shortness of Breath Comments: Pt reports allergy to brand Zocor, tolerates generic. Date Reviewed: 11/09/2017 Reviewed by: Abbie Ribeiro LPN - Fully Assessed Primary Visit Diagnosis:Malignant neoplasm of ascending colon (HCC) [C18.2] Other Visit Diagnosis:Liver metastasis (HCC) [C78.7] Order(s):CT ABD/PEL W IVCON [[id number]] Order #: [id number] FUTURE CT CHEST W IVCON [[id number]] Order #: [id number] FUTURE iv contrast (radiology procedure)CT Chest ABD/PEL-Inject, intravenously, once for 1 dose.No IV access, insert saline lock prior to the beginning of sedation, infusion, injection of imaging exam. Discontinue saline lock post exam. If Pt. has a central line or IVAD, may access for administration according to line specific nursing protocol. Once exam is complete flush line and de- access according to line specific nursing protocol in the CT contrast administration guidelines link.Disp: 1 EachRfl: 0 enteric contrast (radiology procedure)For CT CHESTABD/PEL W IVCON Routine order Administer, As Directed One Time Only, via Oral, Rectal, both Oral and Rectal, Enteric Tube, Stoma or Indwelling Catheter, Enteric Contrast as designated per enteric contrast guidelinesDisp: 1 EachRfl: 0 Prescriptions as of 11/09/2017 Sig: IV CONTRAST (RADIOLOGY PROCED* CT Chest ABD/PEL-Inject, intr* ENTERIC CONTRAST (RADIOLOGY P* For CT CHESTABD/PEL W IVCON R* [id number]* Take 10 mL by mouth every 4 h* PREDNISONE 10 MG TABLET Take 1 tablet twice the day b* POTASSIUM CHLORIDE 20 MEQ ORA* Take 20 mEq by mouth once wyatt* RIVAROXABAN 15 MG TABLET Take 1 tablet by mouth daily * Patient taking differently: Take by mouth daily with dinn* ONDANSETRON HCL 8 MG TABLET Take 1 tablet by mouth every * LIDOCAINE-PRILOCAINE 2.5 %-2.* Apply 1 application to affect* SODIUM CHLORIDE 0.9% FLUSH Access implanted vascular acc* HEPARIN, PORCINE (PF) 100 UNI* Access implanted vascular acc* KETOCONAZOLE 2 % TOPICAL CREAM Apply 1 application to affect* LOPERAMIDE 2 MG TABLET Take 2 mg by mouth as needed. PROMETHAZINE 25 MG TABLET Take 0.5-1 tablets by mouth e* SODIUM CHLORIDE 0.9% FLUSH Access implanted vascular acc* HEPARIN LOCK FLUSH (PORCINE) * Access implanted vascular acc* FUROSEMIDE 20 MG TABLET Take 2 tablets by mouth twice* MONTELUKAST 10 MG TABLET Take 1 tablet by mouth daily * FERREX 150 MG IRON CAPSULE Take 1 capsule by mouth once * MAGNESIUM OXIDE 400 MG TABLET Take 400 mg by mouth twice da* CLOTRIMAZOLE-BETAMETHASONE 1 * Apply 1 application to affect* ACETAMINOPHEN 500 MG TABLET Take 1,000 mg by mouth as nee* DIPHENHYDRAMINE 25 MG TABLET Take 50 mg by mouth as needed. HYDROCORTISONE VALERATE 0.2 %* Apply 1 application to affect* ISOSORBIDE MONONITRATE ER 60 * Take 60 mg by mouth once wilman* ASPIRIN 81 MG TABLET,DELAYED * Take 81 mg by mouth once wilman* METOPROLOL TARTRATE 50 MG TAB* Take 50 mg by mouth twice wyatt* LISINOPRIL 10 MG TABLET Take 10 mg by mouth once wilman* OMEPRAZOLE 20 MG CAPSULE,MELODY* Take 20 mg by mouth once wilman* MOMETASONE 220 MCG (60 DOSES)* Inhale 1 Puff as instructed. CHOLECALCIFEROL (VITAMIN D3) * Take 1 tablet by mouth once d* SIMVASTATIN 40 MG TABLET Take 20 mg by mouth daily at * NITROGLYCERIN 0.3 MG SUBLINGU* Dissolve 0.3 mg under the ton* ALBUTEROL SULFATE HFA 90 MCG/* Inhale 2 Puffs as instructed * EPINEPHRINE 0.15 MG/0.15 ML I* by INJECTION(UNSPECIFIED PARE* LORATADINE 10 MG TABLET Take 10 mg by mouth as needed. TRIAMCINOLONE ACETONIDE 0.025* Apply 1 application to affect* Problem List As Of Date 11/09/2017 Noted Resolved Malignant neoplasm of ascending colon (HCC) [C1*INVALID FOR* Abnormal mammogram of left breast [R92.8] INVALID FOR* 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] INVALID FOR* Abnormal magnetic resonance imaging of liver [R*INVALID FOR* Liver metastasis (HCC) [C78.7] INVALID FOR* Diabetes (HCC) [E11.9] INVALID FOR* Hearing loss [H91.90] INVALID FOR* Hypertension [I10] INVALID FOR* Hyperlipidemia [E78.5] INVALID FOR* Carotid artery disease (HCC) [I77.9] INVALID FOR* Coronary artery disease [I25.10] INVALID FOR* Asthma [J45.909] INVALID FOR* Sleep apnea [G47.30] INVALID FOR* Arthritis [M19.90] INVALID FOR* Fibromyalgia [M79.7] INVALID FOR* Atrial arrhythmia [I49.8] INVALID FOR* H/O degenerative disc disease [Z87.39] INVALID FOR* Spondylolysis [M43.00] INVALID FOR* Radiculopathy [M54.10] INVALID FOR* Eczema [L30.9] INVALID FOR* Anemia [D64.9] INVALID FOR* 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*INVALID FOR* Colon cancer (HCC) [C18.9] Encounter Status:Closed by SUJIT VASQUEZ DO on 11/09/17 CARDIOLOGY VISIT Observed: 11/08/2017 Status: F Source: [facility] REPORT 5:10 PM [facility] REPOSITORY [facility] [address] [place], [place] [address] OFFICE VISIT Date of Service: 11/07/17 MR#: [id number] Acct: [id number] Name: QUYEN COKER Rep #: [id number] : 1940 Provider: Cherri Yanez Age/Sex: 77/F Location: [facility] Status: Signed HPI HPI Details: QUYEN COKER, is a 77 F who presents to the office today for cardiovascular follow-up. She has a history of coronary artery disease with remote bypass surgery and stenting. She also has a history of hypertension, hyperlipidemia and atrial fibrillation. She also has a history of colon cancer in addition to breast cancer and anemia. She notes that she has been more SOB since the last time that she was here. Dr. Vasquez stopped her lasix, this was d/t near syncope. He also decreased her metoprolol to 25 mg BID. She was told to take her lasix if her legs well. She is getting Chemo but is unable to have radiation or surgical resection of her METS to her lungs or liver. They are questioning if she also has a recurrence of the cancer in her breast. She does not have any chest pain but can feel her heart beating. This lasted less than 2 minutes. She does not have any orthopnea. She does not have any edema. Intake Vital Signs11/07/17 Height 5 ft 3 in 11/07/17 Weight: 218 lb 11/07/17 Body Mass Index (BMI) 38.6 11/07/17 Blood Pressure 120/74 11/07/17 Blood Pressure Location Lt brachial Intake Visit Reasons: 3 M FU Authors Motivational Required: No Accompanied by: None Is patient in pain?: Yes (abdominal discomfort atributed to cancer) Pain scale (1-10): 2 Allergies penn Allergy (Verified 11/07/17 14:00) Shortness of breath nadolol [From Corgard] Allergy (Verified 11/07/17 14:00) Hives Penicillins Allergy (Verified 11/07/17 14:00) Hives pitavastatin [From Livalo] Allergy (Verified 11/07/17 14:00) myalgia pravastatin sodium [From Pravachol] Allergy (Verified 11/07/17 14:00) Hives sulfite Allergy (Verified 11/07/17 14:00) Hives atorvastatin calcium [From Lipitor] Adverse Reaction (Verified 11/07/17 14:00) Pain in joints morphine Adverse Reaction (Verified 11/07/17 14:00) chest pain Medications Aspirin 81 mg PO DAILY 01/03/17 [History Confirmed 11/07/17] Cholecalciferol (Vitamin D3) [Vitamin D3] 4,000 unit PO DAILY 01/03/17 [History Confirmed 11/07/17] Mometasone Furoate [Asmanex 220 mcg Twisthaler] 2 puff INHALATION DAILY 01/03/17 [History Confirmed 11/07/17] acetaminophen 500 mg tablet 1,000 mg PO PRN PRN tab 08/17/17 [History Confirmed 11/07/17] albuterol sulfate HFA 90 mcg/actuation aerosol inhaler 2 puff INHALATION Q4H PRN PRN 16 Days #18 08/17/17 [History Confirmed 11/07/17] diphenhydramine 25 mg capsule 50 mg PO PRN PRN 0 Days 08/17/17 [History Confirmed 11/07/17] epinephrine 0.3 mg/0.3 mL injection, auto-injector 0.3 ml SC PRN PRN 1 Days #2 ea 08/17/17 [History Confirmed 11/07/17] hydrocortisone 2.5 % topical cream 1 applic TOPICAL TID PRN PRN 10 Days #30 08/17/17 [History Confirmed 11/07/17] loratadine 10 mg tablet 10 mg PO DAILY PRN PRN 0 Days 08/17/17 [History Confirmed 11/07/17] montelukast 10 mg tablet 10 mg PO QDAY PRN tab 08/17/17 [History Confirmed 11/07/17] isosorbide mononitrate ER 60 mg tablet,extended release 24 hr 60 mg PO DAILY #90 tab 08/21/17 [Rx Confirmed 11/07/17] lisinopril 10 mg tablet 10 mg PO DAILY #90 tab 08/21/17 [Rx Confirmed 11/07/17] magnesium oxide 400 mg tablet 400 mg PO BID #180 tab 08/21/17 [Rx Confirmed 11/07/17] nitroglycerin 0.4 mg sublingual tablet 0.4 mg SUBLINGUAL Q5M PRN #25 tab 08/21/17 [Rx Confirmed 11/07/17] omeprazole 20 mg tablet,delayed release 20 mg PO DAILY #90 tab 09/25/17 [Rx Confirmed 11/07/17] Clotrimazole/Betamethasone Dip [Lotrisone Cream] 1 applic TP BID 10/01/17 [History Confirmed 11/07/17] Potassium Chloride [Klor-Con M20] 20 meq PO DAILY 10/01/17 [History Confirmed 11/07/17] metoprolol tartrate 50 mg tablet 25 mg PO BID tab 11/07/17 [History Confirmed 11/07/17] rivaroxaban 15 mg tablet 20 mg PO QDAY tab 11/07/17 [History Confirmed 11/07/17] Ejection fraction %: 55 to 59 PFSH Medical History Diabetes mellitus (Chronic) HLD (hyperlipidemia) (Chronic) HTN (hypertension) (Chronic) Old myocardial infarction (Chronic) Palpitations (Chronic) Persistent atrial fibrillation (Chronic) Hypomagnesemia (Chronic) Atherosclerosis of coronary artery bypass graft without angina pectoris (Chronic) CAD (coronary artery disease) (Chronic) Hyperlipidemia (Chronic) Diabetes mellitus, type II (Chronic) Surgical History Hx of CABG (Chronic 02/13/12) H/O percutaneous transluminal coronary angioplasty (Chronic 2013) History of left-sided carotid endarterectomy (Chronic 02/07/13) Hx of resection of liver (Chronic) History of appendectomy (Resolved) History of hysterectomy (Resolved) Family History Father CAD (coronary artery disease) Myocardial infarction, Onset Age: 45 Brother CAD (coronary artery disease) Myocardial infarction, Onset Age: 65 Mother , age 85 Atrial fibrillation CHF (congestive heart failure) Pacemaker Sister Atrial fibrillation, Onset Age: 55 Social History Smoking Status: Never smoker alcohol intake: never substance use type: does not use caffeine: Yes Type: carbonated beverages what type of physical activity do you participate in: none seatbelt use: always do you feel safe at home: Yes ROS Const Const: Positive for fatigue; negative for weakness, fever(s) or headache(s) Eyes Eyes: Negative for blind spots, loss of peripheral vision or transient loss of vision ENT ENT: Positive for dizziness; negative for headache(s), tinnitus or Nosebleed/epistaxis Cardio Chest Pain: No Palpitations: Yes Edema: None Muscle aches with walking: None Resp Respiratory: Positive for SOB with activity and Cough; negative for SOB at rest or SOB orthopnea\SOB lying down GI GI: Negative nausea, vomiting, heartburn or vomiting blood/hematemesis : Negative for hematuria Musc Musc: Negative for muscle aches/ myalgia Neuro Neuro: Positive for dizziness and orthostatic symptoms; negative for weakness, headache(s), near syncope, syncope or lightheadedness Jose M Hematologic/Lymphatic: Negative for easy bleeding Endo Endo: Positive for fatigue Cardiology Exam Const Appearance: cooperative, no acute distress and well developed Orientation: alert, awake and oriented x3 Head Head: normocephalic and atraumatic Mouth: moist mucous membranes Eyes General: appearance normal, both eyes and all related structures Conjunctivae: conjunctivae normal Pupils: PERRL EOM: EOM intact bilaterally Neck Neck: normal visual inspection, no lymphadenopathy and no JVD Carotids: Negative bruit Neck Mass: Negative Neck mass Chest Chest inspection: normal inspection of the chest and symmetric chest movement Auscultation: Bilateral: Clear to Auscultation Cardio Palpation: normal PMI Rate: regular rate Rhythm: regular rhythm Heart sounds: S1 normal and S2 normal; negative rub, gallop or murmur GI GI: normal to inspection, soft, no hepatosplenomegaly and bowel sounds present; negative tender Neuro General: alert, awake, oriented x3, CN's II-XI intact bilaterally and moves all extremities Extremities Pulses: Normal: Right Posterior Tibial Pulse, Left Posterior Tibial Pulse, Right Radial Pulse, Left Radial Pulse Lower Extremity Edema: None: Bilateral Psych Psychological: normal affect Supplemental Info Echocardiogram in 2016 demonstrates an ejection fraction of 55%. Mild concentric LVH. Left and right atrium mildly enlarged. Mild mitral annular calcification. Mild diffuse mitral valve thickening. Mild to moderate mitral valve insufficiency. Moderate tricuspid insufficiency. Aortic sclerosis no stenosis. Trivial aortic and pulmonic insufficiency. RVSP 38 mmHg. Assessment AND Plan 1. Atherosclerosis of coronary artery bypass graft of [place] heart without angina pectoris I25.810 Plan - PHYLLIS Johnson Stable, from a cardiac standpoint patient does not have any symptoms of angina. We recommend that they continue with current aggressive medical management and risk factor modification. 2. Essential hypertension I10 Plan - PHYLLIS Johnson Blood pressure medications have been adjusted by her her oncologist. This was done due to her orthostatic symptoms. Adequately controlled today. No adjustments recommended per 3. Pure hypercholesterolemia E78.00 Plan - PHYLLIS Johnson Recent lipid profile demonstrates total cholesterol 161, HDL 61, LDL 73. Will not make any adjustments. 4. Persistent atrial fibrillation I48.1 Plan - PHYLLIS Johnson Rate is controlled. She has anticoagulated with a factor Xa inhibitor. Her diuretics were discontinued due to her orthostatic symptoms that she had during chemotherapy. She now does complain of bloating. Have asked that she resume this once a day for a few days to see if this helps with her symptoms. Plan Detail Other Medications Changed: Additional Comments - PHYLLIS Johnson Patient wishes to establish with Dr. Cage. The above patient was discussed with Dr. Cage, he agrees with plan of care. Thank you for allowing us to participate in patient's plan of care, if you have any questions please do not hesitate to call. This note was generated using a voice recognition system and there may be incorrect words, spelling or punctuation errors that were not noted when reviewing the office note prior to saving. Follow Up 6 Months (Keep as is with DIRECTOR MEDICAL ECONOMICS) Coding Level of Care Code Off vis,est,level 3 Diagnoses Atherosclerosis of coronary artery bypass graft of [place] heart without angina pectoris I25.810 [place] vs. transplanted heart: [place] heart Essential hypertension I10 Hypertension type: essential hypertension Pure hypercholesterolemia E78.00 Hyperlipidemia type: pure hypercholesterolemia Persistent atrial fibrillation I48.1 Coding Level of Care Code Off vis,est,level 3 Diagnoses Atherosclerosis of coronary artery bypass graft of [place] heart without angina pectoris I25.810 [place] vs. transplanted heart: [place] heart Essential hypertension I10 Hypertension type: essential hypertension Pure hypercholesterolemia E78.00 Hyperlipidemia type: pure hypercholesterolemia Persistent atrial fibrillation I48.1 11/08/17 1137 <Electronically signed by Cherri Yanez PA> Date Cherri FERGUSON 11/08/17 1710<Electronically signed by Roland Cage MD> Cosigner Signature: Date (if applicable) Roland Cage MD CC: Alvarez Mccoy MD CNOV Observed: 11/08/2017 Status: COMPLETED Source: [place] 9:10 AM [facility] REPOSITORY Office Visit (GENSWS) QUYEN COKER ([id number]) 1940 [facility] Date Time Provider Department 11/08/17 9:10 AM LC ELMORE During your visit today, we recorded the following information about you: Pulse Blood pressure Weight 74/minute 138/70 98 kg Lc Elmore MD 11/10/2017 11:13 AM Signed FOLLOW UP VISIT - POST OPLUMPECTOMY FOR DCIS, METASTATIC COLON CANCER, NIPPLE DISCHARGE, PORT-A-CATH FAILURE NAME: Quyen Coker CLINIC NO.: [id number] DATE OF SERVICE: November 08, 2017 : 1940 REFERRING PHYSICIAN: Alvarez Mccoy MD Quyen presents for follow-up breast exam and follow-up after recent Port-A-Cath exchange. The patient had had a functional Port-A-Cath for approximately 2 years in the left subclavian vein. The patient noted pain at the port site after power infusion during a CAT scan. She then noted pain and swelling at the site and above the clavicle during her next chemotherapy treatment. Contrast study through the port demonstrated leakage where the catheter was affixed to the hub. My partner-Joan Edmar, performed removal of left subclavian Port-A-Cath and replacement of a right subclavian Port-A-Cath. This is functional. The patient also notes scant brown nipple discharge from the left breast. This occurs most frequently during a warm shower. She notes no palpable abnormalities or other issues. 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 She returns here for follow-up of her breast related issues. 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 Her complicated history is as follows: The patient is a 74 year old female with a complaint of rectal bleeding and anemia. The patient initially underwent upper endoscopy which demonstrated no obvious source. The patient underwent colonoscopy by Dr. Chuck Penn on July 13 which demonstrated a fungating mass at the cecum ascending colon junction. Pathology returned as invasive adenocarcinoma. The patient is being seen by me today at the request of Dr. Penn for my opinion and advice regarding right colon cancer. The patient has a history of coronary disease and carotid stenosis. She has been on Plavix which was on hold after her endoscopy and prior to her surgical procedure. Additionally, she had undergone previous left carotid endarterectomy. Patient was recently evaluated by her metal patternmaker, Dr. Sujit Maya. She had undergone coronary bypass grafting in 2011 and is status post an LAD and left circumflex stent placement in November 2013. 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 She has good left ventricular ejection fraction. It was felt she was an acceptable risk for surgical intervention and did not require further preoperative cardiac diagnostic studies. I performed a laparoscopic right hemicolectomy on July 28, 2015. The pathology demonstrated: The tumor's size was 3.0x2.6.1.0 cm. Macroscopic tumor perforation was not identified. Histologic type: adenocarcinoma Histologic Grade: Low grade Histologic features for microsatellite instability - Intratumoral lymphocytic response: Mild to moderate Peritumoral lymphocytic response: Crohn's like lymphoid response: None Tumor subtype and differentiation: Not applicable MIcroscopic tumor extension: tumor invades through muscularis propria into subserosal adipose Lymphovascular invasion: None Perineural invasion: None Surgical margins were free of disease. Lymph nodes examined: 14 Lymph nodes involved: 0 PATHOLOGIC STAGE: pT 3, pN 0, M 0 Quyen noted loose stools had been continuing for the past few days at her August 15 follow-up. She has been maintaining a low residue diet. She also notes very transient dizziness. Post operative pain has been well controlled. The patient notes nausea. The patient`s appetite has been average. She was admitted to the hospital on August 22 with further looser stools and dizziness and some dehydration. Stool cultures were obtained which demonstrated no abnormalities. She was started on probiotics and Imodium and this significantly improved her stool frequency. She notes that at this point in time, her stools remain somewhat green but are less loose than they were. Overall she states her appetite still remains fair. She also notes that she is having issues of persistent nausea. She noted that this seemed similar to this as she had had in the past and was evaluated by Dr. Penn with upper endoscopy which was apparently unremarkable. The patient has been on a 20 mg Prilosec dose for some time. She notes that her nausea symptoms improve if she takes Maalox. The patient still is complaining of episodic transient dizziness that is worse if she raises up more quickly. Additionally, the patient underwent a recent follow-up mammogram. This was read as demonstrating a 8 mm mass with microcalcifications in her left breast. It was recommended biopsy listed BI-RADS Category 4. The patient did not have ultrasound performed. She irregularly performs a self breast exam and notes overall lumpy breasts but denies any specific changes. She denies skin changes, nipple discharge, or other difficulties. She had a previous mammogram that did demonstrate some microcalcifications similar mass. I obtained a CT scan of the abdomen and pelvis. This demonstrated no intra-abdominal abnormalities and demonstrated the anastomosis to have no signs of leakage inflammation or abscess which I felt could've been concerning for her abdominal complaints. There was noted to be in an area of asymmetric contrast enhancement in the liver which seemed to go away in delayed films. There were a list of possible options for this and MRI was recommended as an option. The patient had a previous CT scan preop which demonstrated similar findings from my standpoint and intraoperatively had no abnormalities noted in this location at the liver surface. I felt it was not necessary to have an MRI. Dr. Vasquez evaluated the patient and was concerned of those findings and recommended an MRI be obtained. The patient has since seen her primary care physician. Her oral hypoglycemic medication was stopped which has both cured her dizziness symptoms and her epigastric/nausea symptoms. We also obtained ultrasound which demonstrates no specific abnormalities in her left breast I performed a left side stereotactic biopsy for her abnormal mammogram on September 15, 2014. The pathology returned as DCIS. The patient notes some resolution of the bruising since the procedure but now notes a mass that worries her at the biopsy site. 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 Nuclear Grade - 2 (intermediate). Necrosis - present, single cell necrosis. Calcifications - present. Additional findings - focal fibrocystic changes. Negative for invasive carcinoma in the submitted specimen. I plan to obtain an MRI to assess her breast for additional or more extended pathology. MRI of the breast returned as: IMPRESSION: KNOWN BIOPSY PROVEN MALIGNANCY Longitudinally oriented area of mild enhancement in the central left breast thought to be due to postbiopsy hemorrhage/inflammation. Tumor along this entire length is thought less likely but cannot be excluded. Brandee condon/giovanny:10/12/2015 12:43:57 Cash Room Clerk: Marissa [facility] letter sent: Category 6 MRI BI-RADS: 6 Known biopsy proven malignancy Aerologist: [facility] Transcribe Date/Time: Oct 12 2015 12:43P Dictated by : BRANDEE AYALA MD This examination was interpreted and the report reviewed and electronically signed by: BRANDEE AYALA MD On Oct 12 2015 12:43PM Results-Findings * * *Final Report* * * DATE OF EXAM: Oct 11 2015 9:45AM [facility] [id number] - MRI BREAST YAN [facility] / PROCEDURE REASON: DCIS (D05.10), ABNORMAL MAMMOGRAM OF LEFT BREAST (R92.8) * * * * Physician Interpretation * * * * #[id number] - MRI BREAST YAN [facility] BREAST MRI OF BOTH BREASTS : 10/11/2015 HISTORY: Dcis (D05.10), Abnormal Mammogram Of Left Breast (R92.8). RESULT: No prior exams were available for comparison. Interpretation of this MRI was correlated with available mammograms. Gadolinium contrast calibrated to patient weight was injected. Axial T1, T2, pre and post contrast T1, and coronal images were obtained with a dedicated breast coil. The breasts are mostly fatty bilaterally. No mass, architectural distortion or abnormal enhancement is seen in the right breast. In the mid central right breast, centered just above the nipple is a longitudinal area of mild increased progressive enhancement. This is in the vicinity of recent biopsy. There is susceptibility artifact. However, the length of abnormal enhancement is much greater than the targeted lesion measuring approximately 4 cm in craniocaudal dimension. Maximal AP dimension is approximately 1.7 cm and maximal transverse dimension 1.3 cm. This abnormal enhancement could be biopsy related, perhaps representing postbiopsy hemorrhage/inflammation. No other areas of abnormal enhancement or architectural distortion are seen. There are no abnormalities seen in the axillary nodes region or infraclavicular nodes. The patient's abdominal MRI returned as: IMPRESSION: Large left hepatic lobe lesion, neoplastic in appearance and likely metastatic from the patient's known colonic CA. Partial SMV thrombus. COMMUNICATION: Communicated with: SUJIT Hernandez 10/13/2015 12:20 PM. Aerologist: [facility] Transcribe Date/Time: Oct 13 2015 12:26P Dictated by : BRANDEE AYALA MD This examination was interpreted and the report reviewed and electronically signed by: BRANDEE AYALA MD On Oct 13 2015 12:26PM Results-Findings * * *Final Report* * * DATE OF EXAM: Oct 13 2015 9:35AM [facility] [id number] - MRI ABDOMEN [facility] CONTRAST / PROCEDURE REASON: abnormal ct of lever r93.2 malignant neoplasm of ascending colon c18.2 dcia lef * * * * Physician Interpretation * * * * RESULT: MRI of the abdomen without and with intravenous contrast HISTORY: abnormal ct of lever r93.2 malignant neoplasm of ascending colon c18.2 dcis left TECHNIQUE: Using the torso phased array coil, axial STIR, T1 weighted in- and [id number] and coronal HASTE images were obtained. Flow sensitive imaging through the portal vein was performed, as well. Then, using a 3-D GRE T1 weighted sequence, dynamic images were obtained before, during and after the administration of 19ml cc intravenous Dotarem. Comparison: None FINDINGS: Liver: There is a large, heterogeneously enhancing mass within the entire lateral segment of the left hepatic lobe and extending into the medial segment as well. This mass measures approximately 8.2 x 5.8 x 6.3 cm. This is most consistent with neoplasm, perhaps metastatic given the patient's history of colonic carcinoma. No additional hepatic lesions are seen. There is patchy hepatic fatty change throughout the right hepatic lobe. Biliary tract: The common bile duct is normal in course and caliber. No filling defect is identified within the common duct. Gallbladder: Absent Pancreatic duct: The visualized portions of the pancreatic duct are normal. Spleen: No lesion is identified. Pancreas: The pancreas enhances normally and is without focal lesions. Adrenal glands: No mass is identified Kidneys: The visualized portions of the kidneys are normal. No adenopathy is identified. There is partial, nonocclusive thrombus within the superior mesenteric vein just cephalad to its 1st branch. She had undergone liver resection with a left hepatectomy for metastatic colon cancer at April 27, 2016. She was doing well post her liver resection and then we proceeded with her surgical resection for her DCIS. I performed a left needle localization lumpectomy/partial mastectomy on July 05, 2016. The pathology demonstrated: MICROSCOPIC DIAGNOSIS Left breast mass, lumpectomy with needle localization: Focal ductal carcinoma in situ. Changes consistent with previous biopsy site. See cancer summary below. SJ:carmen 07/07/16 DUCTAL CARCINOMA IN SITU SUMMARY: Specimen - partial breast Procedure - excision with wire-guided localization Lymph node sampling ? no lymph nodes present Specimen integrity - single intact specimen Specimen size ? 15 x 9 x 4 cm Specimen laterality ? left Tumor site ? not specified Size (extent) of DCIS ? 0.3 cm in greatest dimension. See comment. 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 Architectural pattern - cribriform Nuclear grade - grade 2 (intermediate) Necrosis ? not identified Margins ? margin uninvolved by ductal carcinoma in situ. The tumor is 2 cm away from the closest anterior and posterior margins Treatment effect - no known presurgical therapy. Lymph nodes ? not submitted Distant metastasis ? not replicable Additional Pathologic Findings ? fibrocystic changes. - Focal changes consistent with previous biopsy site. Ancillary Studies from previous specimen ([id number] / [id number]): ER ? positive (65%, strong) FL ? positive (54%, strong) Her2 sophie (IHC) ? equivocal (2+) Her2 by FISH - not performed. Microcalcifications ? present in non-neoplastic tissue. Clinical history - Please make reference to previous specimen (S1) left breast, stereotactic core biopsy with diagnosis of ductal carcinoma in situ. Pathologic Staging: pTis(DCIS) pNx Mx The above summary is in compliance with [employer] (CAP) Cancer Protocols Checklist and [place] Joint Committee on Cancer (AJCC), Staging Manual, 7th Ed. COMMENT A minute focus of ductal carcinoma in situ is noted adjacent to the previous biopsy site. The ductal carcinoma in situ is measured on the glass slide. The ductal carcinoma in situ in the previous breast biopsy ([id number]) measures 0.4 x 0.2 cm in greatest dimension and present in 2 out of 4 blocks. Case has been reviewed in consultation with Dr. Segovia who concurs with the above diagnosis. IDC:SARAH Napier notes the site is well healing. Post operative pain has been well controlled. The patient denies nausea. The patient`s appetite has been good. Given the size of her DCIS she was not felt to need radiation following her procedure. She is doing a self breast exam and notes no palpable abnormalities. She recently underwent follow-up mammogram on February 13, 2017. This demonstrated: IMPRESSION: PROBABLY BENIGN The grouped calcifications in the left breast are probably benign. A follow-up mammogram in 6 months is recommended to demonstrate stability. Alvarez oro/giovanny:02/13/2017 12:06:29 Cash Room Clerk: Aubrie CAZARES (R M), [facility] letter sent: # Mo FU Mammogram BI-RADS: 3 Probably benign Aerologist: [facility] Transcribe Date/Time: Feb 13 2017 11:10A Dictated by: ALVAREZ CORONADO MD This examination was interpreted and the report reviewed and electronically signed by: ALVAREZ CORONADO MD on Feb 13 2017 12:06PM ?EST The patient follow up study was found to have recurrence of her tumor at the edge of the previous resection in the liver and was felt to be a lung metastases. She is currently undergoing salvage/palliative chemotherapy. Overall she is doing well with these treatments. She had 6 month follow-up mammogram and ultrasound. This demonstrated: IMPRESSION: SUSPICIOUS FINDING - BIOPSY SHOULD BE CONSIDERED - FOLLOW-UP RECOMMENDED The 7 mm dilated duct in the left breast resembles a solid mass or a papilloma and is suspicious of malignancy. ?An ultrasound guided biopsy is recommended. Juancarlos andersen/giovanny:10/17/2017 15:09:57 Cash Room Clerk: Aubrie GALARZA (R)) [facility] letter sent: Abnormal ? Mammogram BI-RADS: 4 Suspicious finding - Biopsy should be considered Ultrasound BI-RADS: 4 Suspicious finding - Biopsy should be considered Aerologist: Giovanny Transcribe Date/Time: Oct 17 2017 ?1:56P Dictated by : JUANCARLOS SNOW MD This examination was interpreted and the report reviewed and electronically signed by: JUANCARLOS SNOW MD on Oct 17 2017 ?3:09PM ?EST Results-Findings * * *Final Report* * * DATE OF EXAM: Oct 17 2017 ?2:54PM ? [facility] ? [id number] ?- ?[facility] [employer] BREAST [employer] LT ?/ PROCEDURE REASON: 6 month bilateral / left breast / abnormal mammogram ?? ? * * * * Physician Interpretation * * * * ?#[id number] - [facility] DIAGNOSTIC YAN BILATERAL DIGITAL DIAGNOSTIC MAMMOGRAM WITH CAD: 10/17/2017 HISTORY: 6 Month Bilateral / Left Breast / Abnormal Mammogram. RESULT: TECHNIQUE: ?The study was acquired using full field digital technology and interpreted from soft copy. Current study was also evaluated with a Computer Aided Detection (CAD). Comparison is made to exams dated: ?02/13/2017 mammogram, 09/04/2016 mammogram - [facility], 09/06/2015 mammogram, and 09/03/2015 mammogram. There are scattered fibroglandular elements in both breasts. The left breast has post-operative findings. There are grouped pleomorphic calcifications in the left breast at 9 o'clock anterior depth. No other significant masses, calcifications, or other findings are seen in either breast. SUSPICIOUS FINDING - BIOPSY SHOULD BE CONSIDERED The grouped pleomorphic calcifications in the left breast are suspicious of malignancy. ?A stereotactic biopsy is recommended. There is no abnormality seen in the left breast to correspond with the discharge from the nipple, however, clinical correlation is recommended. #[id number] - [facility] [employer] ULTRASOUND OF LEFT BREAST: 10/17/2017 RESULT: Comparison is made to exams dated: ?02/13/2017 mammogram, 09/04/2016 mammogram - [facility], 09/06/2015 mammogram, and 09/03/2015 mammogram. Real-time ultrasound of the left breast was performed. There is a 7 mm dilated duct in the left breast central to the nipple in the retroareolar region. ?This dilated duct displays internal echoes. VITALS: Blood pressure 138/70, pulse 74, weight 98 kg (216 lb). On examination, patient's breast exam external is unremarkable with no nipple retraction, skin changes or other specific abnormalities. Her incision is well-healed. Bilateral breast exam demonstrates no specific palpable abnormalities. Her axillary exam is negative bilaterally. Intraoffice ultrasound to demonstrate the area just to the medial aspect of her left nipple. There was felt to be truly about 4 mm in size just approximately 5 mm below the skin. This does seem to be a site of a mildly dilated duct. IMPRESSION: Status Post needle localization lumpectomy/partial mastectomy for left breast DCIS, metastatic colon cancer to the lung and liver. Recommended biopsy for left breast medial microcalcifications and left periareolar mass, likely papilloma. The left breast microcalcifications will be a stereotactic biopsy. I performed this biopsy versus this is the most likely chance of returning as a malignancy. If this was unremarkable, then I would recommend ultrasound-guided excisional biopsy with wire placement for the periareolar mass. This would most likely not be malignant. I had an extensive discussion about the timing options, alternatives, and possible treatment options. Based on the various possible biopsy diagnoses for both the microcalcifications and the periareolar mass. This discussion took approximately 45 minutes. I spoke with Dr. Vasquez. He will hold the patient's treatment due to absolute neutropenia. He will check a repeat blood count on Sunday. If this is improved. The patient is instructed to hold her anticoagulation and we will plan for stereotactic biopsy on Sunday PLAN: Recommended biopsy for left breast medial microcalcifications and left periareolar mass, likely papilloma. The left breast microcalcifications will be a stereotactic biopsy. I performed this biopsy versus this is the most likely chance of returning as a malignancy. If this was unremarkable, then I would recommend ultrasound-guided excisional biopsy with wire placement for the periareolar mass. This would most likely not be malignant. I had an extensive discussion about the timing options, alternatives, and possible treatment options. Based on the various possible biopsy diagnoses for both the microcalcifications and the periareolar mass. This discussion took approximately 45 minutes. I spoke with Dr. Vasquez. He will hold the patient's treatment due to absolute neutropenia. He will check a repeat blood count on Sunday. If this is improved. 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 MD Lc Rodriguez MD 11/10/2017 11:13 AM Signed The following instructions are important for you related to your office visit today with the [facility]. INSTRUCTIONS FOR YOUR STEREOTACTIC BIOPSY Please do not take aspirin or other blood thinners for 3 days prior to your stereotactic biopsy. Wear comfortable loose fitting clothes. You should not take sedatives prior to the procedure. After the procedure, Steri-Strips and a dressing will be placed on your small incision. The dressing may be removed in two to three days after the procedure. The Steri-Strips should be left in place until they fall off. If you have bleeding from the biopsy site, hold pressure with a clean gauze. If the bleeding continues, contact our office immediately. I recommend taking Advil or Tylenol for the discomfort. You should wear a comfortable but somewhat tight fitting bra. If you have significant bruising, an ice pack may improve your discomfort. Contact our office immediately if you have any questions or concerns. If you note any additional difficulties, questions, or concerns, you should contact our office immediately @ [phone] and ask to be transferred to the General Surgery department. Referring Provider: SUJIT VASQUEZ [[id number]] Allergies As of Date: 11/08/2017 Noted Allergy Reaction CORGARD (NADOLOL) 07/21/2015 12 - Shortness of Breath PENN 07/21/2015 12 - Shortness of Breath MORPHINE 07/21/2015 12 - Shortness of Breath Comments: Pt says she can tolerate oxycodone. PENICILLINS 07/21/2015 12 - Shortness of Breath PRAVACHOL (PRAVASTATIN) 07/21/2015 12 - Shortness of Breath SULFITE 07/21/2015 12 - Shortness of Breath Comments: Sulfites in food. Verified by refrigerator tester. ZOCOR (SIMVASTATIN) 07/21/2015 12 - Shortness of Breath Comments: Pt reports allergy to brand Zocor, tolerates generic. Date Reviewed: 11/08/2017 Reviewed by: Lc Elmore - Fully Assessed Reason for Visit: mammogram follow up [Other] Primary Visit Diagnosis:Nipple discharge [N64.52] Other Visit Diagnoses: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05.12] Malignant neoplasm of ascending colon (HCC) [C18.2] Abnormal finding on breast imaging [R92.8] Prescriptions as of 11/08/2017 Sig: [id number]* Take 10 mL by mouth every 4 h* PREDNISONE 10 MG TABLET Take 1 tablet twice the day b* POTASSIUM CHLORIDE 20 MEQ ORA* Take 20 mEq by mouth once wyatt* RIVAROXABAN 15 MG TABLET Take 1 tablet by mouth daily * Patient taking differently: Take by mouth daily with dinn* ONDANSETRON HCL 8 MG TABLET Take 1 tablet by mouth every * LIDOCAINE-PRILOCAINE 2.5 %-2.* Apply 1 application to affect* SODIUM CHLORIDE 0.9% FLUSH Access implanted vascular acc* HEPARIN, PORCINE (PF) 100 UNI* Access implanted vascular acc* KETOCONAZOLE 2 % TOPICAL CREAM Apply 1 application to affect* LOPERAMIDE 2 MG TABLET Take 2 mg by mouth as needed. PROMETHAZINE 25 MG TABLET Take 0.5-1 tablets by mouth e* SODIUM CHLORIDE 0.9% FLUSH Access implanted vascular acc* HEPARIN LOCK FLUSH (PORCINE) * Access implanted vascular acc* FUROSEMIDE 20 MG TABLET Take 2 tablets by mouth twice* MONTELUKAST 10 MG TABLET Take 1 tablet by mouth daily * FERREX 150 MG IRON CAPSULE Take 1 capsule by mouth once * MAGNESIUM OXIDE 400 MG TABLET Take 400 mg by mouth twice da* CLOTRIMAZOLE-BETAMETHASONE 1 * Apply 1 application to affect* ACETAMINOPHEN 500 MG TABLET Take 1,000 mg by mouth as nee* DIPHENHYDRAMINE 25 MG TABLET Take 50 mg by mouth as needed. HYDROCORTISONE VALERATE 0.2 %* Apply 1 application to affect* ISOSORBIDE MONONITRATE ER 60 * Take 60 mg by mouth once wilman* ASPIRIN 81 MG TABLET,DELAYED * Take 81 mg by mouth once wilman* METOPROLOL TARTRATE 50 MG TAB* Take 50 mg by mouth twice wyatt* LISINOPRIL 10 MG TABLET Take 10 mg by mouth once wilman* OMEPRAZOLE 20 MG CAPSULE,MELODY* Take 20 mg by mouth once wilman* MOMETASONE 220 MCG (60 DOSES)* Inhale 1 Puff as instructed. CHOLECALCIFEROL (VITAMIN D3) * Take 1 tablet by mouth once d* SIMVASTATIN 40 MG TABLET Take 20 mg by mouth daily at * NITROGLYCERIN 0.3 MG SUBLINGU* Dissolve 0.3 mg under the ton* ALBUTEROL SULFATE HFA 90 MCG/* Inhale 2 Puffs as instructed * EPINEPHRINE 0.15 MG/0.15 ML I* by INJECTION(UNSPECIFIED PARE* LORATADINE 10 MG TABLET Take 10 mg by mouth as needed. TRIAMCINOLONE ACETONIDE 0.025* Apply 1 application to affect* Problem List As Of Date 11/08/2017 Noted Resolved Malignant neoplasm of ascending colon (HCC) [C1*INVALID FOR* Abnormal mammogram of left breast [R92.8] INVALID FOR* 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] INVALID FOR* Abnormal magnetic resonance imaging of liver [R*INVALID FOR* Liver metastasis (HCC) [C78.7] INVALID FOR* Diabetes (HCC) [E11.9] INVALID FOR* Hearing loss [H91.90] INVALID FOR* Hypertension [I10] INVALID FOR* Hyperlipidemia [E78.5] INVALID FOR* Carotid artery disease (HCC) [I77.9] INVALID FOR* Coronary artery disease [I25.10] INVALID FOR* Asthma [J45.909] INVALID FOR* Sleep apnea [G47.30] INVALID FOR* Arthritis [M19.90] INVALID FOR* Fibromyalgia [M79.7] INVALID FOR* Atrial arrhythmia [I49.8] INVALID FOR* H/O degenerative disc disease [Z87.39] INVALID FOR* Spondylolysis [M43.00] INVALID FOR* Radiculopathy [M54.10] INVALID FOR* Eczema [L30.9] INVALID FOR* Anemia [D64.9] INVALID FOR* 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*INVALID FOR* Colon cancer (HCC) [C18.9] Other instructions from your clinician: The following instructions are important for you related to your office visit today with the [facility]. INSTRUCTIONS FOR YOUR STEREOTACTIC BIOPSY Please do not take aspirin or other blood thinners for 3 days prior to your stereotactic biopsy. Wear comfortable loose fitting clothes. You should not take sedatives prior to the procedure. After the procedure, Steri-Strips and a dressing will be placed on your small incision. The dressing may be removed in two to three days after the procedure. The Steri-Strips should be left in place until they fall off. If you have bleeding from the biopsy site, hold pressure with a clean gauze. If the bleeding continues, contact our office immediately. I recommend taking Advil or Tylenol for the discomfort. You should wear a comfortable but somewhat tight fitting bra. If you have significant bruising, an ice pack may improve your discomfort. Contact our office immediately if you have any questions or concerns. If you note any additional difficulties, questions, or concerns, you should contact our office immediately @ [phone] and ask to be transferred to the General Surgery department. Follow-up and Disposition History Recorded Letter Text Encounter Status:Closed by LC ELMORE MD on 11/10/17 PROGRESS Observed: 10/29/2017 Status: COMPLETED Source: [place] 12:25 PM [facility] REPOSITORY HNO ID: [id number] Author: Bebe Finn (Sw) Service: (none) Author Type: Manager Forms Type: Progress Notes Filed: 10/29/2017 12:42 PM Note Text: PSYCHOSOCIAL ASSESSMENT Date of Service: October 29, 2017 Quyen Coker is a 77 year old female being seen for initial social work assessment. Diagnosis: colon cancer with metastasis to liver New Primary Oncologist: Dr. Vasquez Radiation Oncologist: TYSHAWN Goals of Care: Palliative care Today's visit includes: self/patient Family History of Cancer: Sibiling(s) and Other *SUPPORT NETWORK: Marital status: Parent(s): Mother is and Father is Child/Children: Yes. How many? 2 (1 son, 1 daughter) healthcare facility administrator arrangements needed: No Siblings: 1 sister(s) and 1 brother(s) (brother ) Grandchild(darion): 2 (1 boy, 1 girl from same child) Home Health Provider: No Community Services: No Paula Identified: Yes Holiness/Spirituality: Jew Are these practices or beliefs that may affect or influence treatment? No *EMPLOYMENT/FINANCIAL/HEALTH INSURANCE: Employment: Retired Income source: Social Security and Intermediate Pension Insurance: Medicare with co-insurance Prescription coverage: Yes COBRA Is the patient appropriate for referral to [facility] COBRA Assistance program? No Financial Distress: No [place]: No *LIVING ARRANGEMENTS: Type: House- independent ranch Resides with: Family Alvarez *FUNCTIONAL STATUS: Cognitive limitations: none Physical limitations: high level fatigue and arthritis pain Language barrier: No Hearing Impaired: Yes marked hearing loss, primarily in left ear Speech Impaired: No Visual Impairments: Yes, glasses Literacy Issues: No Special considerations/accommodations needed: No MENTAL HEALTH HISTORY: No History of combat/trauma: No Substance Use and Treatment History: denied History of Abuse: No Issues with: ? Sleep:Yes ? Eating:No ? Exercising: Yes ? Stress Management: No *ADVANCE DIRECTIVES/LEGAL DOCUMENTS: Living Will: Yes Health Care Durable Power of Stereoplotter Operator: Yes Scanned into EPIC: Yes Guardianship: NA Scanned into EPIC:NA *COPING STATUS: Coping Strengths: supportive relationships with immediate family, with friends and with extended family spirituality successful managing past crises hopefulness self advocate strong problem-solving skills ability to plan able to follow direction consistently over time able to communicate effectively Current affect/mood: appropriate History of Loss: Yes, mother, father, brother Adjustment to diagnosis: reflecting understanding, responding appropriately and accepting help *BARRIERS/CARE CHALLENGES: None Are barriers/care challenges identified likely to have an impact on the patient's quality of life during treatment? NA *CLINICAL IMPRESSION: SW met with patient following her chemotherapy education appointment and during her chemotherapy treatment. Patient reports long history of chronic health conditions. Patient has been diagnosed with arthritis since 26 and has a history of heart issues. Patient's parents and brother all passed from heart related issues. Patient also has sleep apnea, which she reports wakes her up a few times every night. Patient reports most of the time she is able to fall back asleep. Patient reports with her chemotherapy she will have a decreased appetite for the week following the treatment, but it returns to normal after that. Patient does have trouble hearing, especially out of her right ear. She also wears glasses. Patient lives with her in a ranch-style home with a basement and loft area over the living room. Patient has lived on the main level since she had her heart surgery a few years ago. Patient has two children and two grandchildren, who all live in the area. Patient also has a sister (her brother from heart issues). 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 Patient has Medicare A and B, AARP and uses [facility] for her prescriptions. Patient does have Advance Directives and reports they are scanned into the system with [facility]. FREYA oriented patient to services and provided her with a list of local cancer resources. FREYA also provided her with a coupon for [employer] since she is interested in getting a wig. She is unsure if she wants to drive to [facility]. She will also check [employer] to see if they have anything available. INTERVENTIONS/REFERRALS TO BE PROVIDED: Monitor patient response to treatment Communicate pertinent medical/psychosocial information to Cancer Center team Provide emotional support to patient/family Referral to community resource Assist with financial support applications Psychotherapy/Counseling Education Relaxation Techniques Provided education on distress and screening process Continue follow up as needed Resources and Referrals: ? Internal: [facility] ? External: [facility], [facility] and Other [employer], [employer] PLAN: Follow up appointment with FREYA in: ELLIE MeeksNPATED Observed: 10/29/2017 Status: COMPLETED Source: [place] 12:00 AM [facility] REPOSITORY Education (RENETTA) TANIAQUYEN CERVANTES ([id number]) 1940 F T Date Time Provider Department 10/29/17 HELEN BENDER) RENETTA Reason for Visit: First Time Treatment Education [5881] Visit Notes: >> Helen Matamoros) JOANN Bender SunOct 29, 2017 11:24 AM Status: Signed ONCOLOGY PATIENT EDUCATION NOTE TOPIC: Chemotherapy, Medications: Folfiri READINESS TO LEARN: COGNITIVE ABILITY: Alert and oriented MOTIVATION TO LEARN: Interested FAMILY SUPPORT: Unable to assess - Family not present INSTRUCTION PROVIDED TO: Patient INSTRUCTION PROVIDED BY: Nurse Coordinator PATIENT LEARNS BEST BY: Unable to Assess FACTORS AFFECTING LEARNING: None PHYSICAL LIMITATIONS AFFECTING LEARNING: Sensory Deficit Hearing: Hard of Hearing LEARNING RESPONSE DIAGNOSIS: Malignant Neoplasm of Ascending Colon METHOD OF INSTRUCTION: Individual instruction Written instruction - handouts Verbal instruction PATIENT/FAMILY RESPONSE: Verbalizes understanding of: CHEMOTHERAPY-Regimen, toxicity and side effects FOLLOW UP PLAN: Patient instructed to call with any further issues Recommend - Recommend continued instruction and follow up as directed Follow up phone call. Contact information given. SUPPLEMENTAL MATERIAL: Written material was provided at this visit with the following information: - Side effect management information was provided/discussed including but not limited to: anemia, appetite changes, bowel habit changes, electrolyte disturbances, fatigue, hair loss, infection, mouth hygiene, mucositis, nausea/vomitting, neuropathy, neutropenia, peripheral neuropathy, rash, shortness of breath, taste changes, thrombocytopenia YES - Important phone numbers and contacts during and after hours. YES - Symptoms that require immediate assistance. YES - Preventing infection. YES - Treatment schedule and confirmation of appointment times. NA - Available support groups. NA - The importance of contraception during the course of chemotherapy YES - Neutropenic fever protocol discussed with patient, which included the importance of reporting any fever of 100.4F (38.0C) or greater to the healthcare team as noted on the provided wallet card and/or magnet. YES Time Spent: 15 minutes REFERRAL (RECOMMENDATION): Social Work Helen Bender RN During your visit today, we recorded the following information about you: Allergies As of Date: 10/29/2017 Noted Allergy Reaction CORGARD (NADOLOL) 07/21/2015 12 - Shortness of Breath PENN 07/21/2015 12 - Shortness of Breath MORPHINE 07/21/2015 12 - Shortness of Breath Comments: Pt says she can tolerate oxycodone. PENICILLINS 07/21/2015 12 - Shortness of Breath PRAVACHOL (PRAVASTATIN) 07/21/2015 12 - Shortness of Breath SULFITE 07/21/2015 12 - Shortness of Breath Comments: Sulfites in food. Verified by refrigerator tester. ZOCOR (SIMVASTATIN) 07/21/2015 12 - Shortness of Breath Comments: Pt reports allergy to brand Zocor, tolerates generic. Date Reviewed: 10/26/2017 Reviewed by: Abbie Ribeiro LPN - Fully Assessed Prescriptions as of 10/29/2017 Sig: PREDNISONE 10 MG TABLET Take 1 tablet twice the day b* POTASSIUM CHLORIDE 20 MEQ ORA* Take 20 mEq by mouth once wyatt* AZITHROMYCIN 250 MG TABLET Take two (2) tablets by mouth* RIVAROXABAN 15 MG TABLET Take 1 tablet by mouth daily * Patient taking differently: Take by mouth daily with dinn* ONDANSETRON HCL 8 MG TABLET Take 1 tablet by mouth every * LIDOCAINE-PRILOCAINE 2.5 %-2.* Apply 1 application to affect* SODIUM CHLORIDE 0.9% FLUSH Access implanted vascular acc* HEPARIN, PORCINE (PF) 100 UNI* Access implanted vascular acc* KETOCONAZOLE 2 % TOPICAL CREAM Apply 1 application to affect* LOPERAMIDE 2 MG TABLET Take 2 mg by mouth as needed. PROMETHAZINE 25 MG TABLET Take 0.5-1 tablets by mouth e* SODIUM CHLORIDE 0.9% FLUSH Access implanted vascular acc* HEPARIN LOCK FLUSH (PORCINE) * Access implanted vascular acc* FUROSEMIDE 20 MG TABLET Take 2 tablets by mouth twice* MONTELUKAST 10 MG TABLET Take 1 tablet by mouth daily * FERREX 150 MG IRON CAPSULE Take 1 capsule by mouth once * MAGNESIUM OXIDE 400 MG TABLET Take 400 mg by mouth twice da* CLOTRIMAZOLE-BETAMETHASONE 1 * Apply 1 application to affect* ACETAMINOPHEN 500 MG TABLET Take 1,000 mg by mouth as nee* DIPHENHYDRAMINE 25 MG TABLET Take 50 mg by mouth as needed. HYDROCORTISONE VALERATE 0.2 %* Apply 1 application to affect* ISOSORBIDE MONONITRATE ER 60 * Take 60 mg by mouth once wilman* ASPIRIN 81 MG TABLET,DELAYED * Take 81 mg by mouth once wilman* METOPROLOL TARTRATE 50 MG TAB* Take 50 mg by mouth twice wyatt* LISINOPRIL 10 MG TABLET Take 10 mg by mouth once wilman* OMEPRAZOLE 20 MG CAPSULE,MELODY* Take 20 mg by mouth once wilman* MOMETASONE 220 MCG (60 DOSES)* Inhale 1 Puff as instructed. CHOLECALCIFEROL (VITAMIN D3) * Take 1 tablet by mouth once d* SIMVASTATIN 40 MG TABLET Take 20 mg by mouth daily at * NITROGLYCERIN 0.3 MG SUBLINGU* Dissolve 0.3 mg under the ton* ALBUTEROL SULFATE HFA 90 MCG/* Inhale 2 Puffs as instructed * EPINEPHRINE 0.15 MG/0.15 ML I* by INJECTION(UNSPECIFIED PARE* LORATADINE 10 MG TABLET Take 10 mg by mouth as needed. TRIAMCINOLONE ACETONIDE 0.025* Apply 1 application to affect* Encounter Status:Closed by HELEN BENDER on 10/29/17 CNSW Observed: 10/29/2017 Status: COMPLETED Source: [place] 12:00 AM [facility] REPOSITORY Social Work (HEMYADIRA) QUYEN COKER ([id number]) 1940 F [facility] Date Time Provider Department 10/29/17 BEBE FINN (SW) During your visit today, we recorded the following information about you: ELLIE Paul 10/29/2017 12:42 PM Signed Sensitive Note PSYCHOSOCIAL ASSESSMENT Date of Service: October 29, 2017 Quyen Coker is a 77 year old female being seen for initial social work assessment. Diagnosis: colon cancer with metastasis to liver New Primary Oncologist: Dr. Vasquez Radiation Oncologist: TYSHAWN Goals of Care: Palliative care Today's visit includes: self/patient Family History of Cancer: Sibiling(s) and Other *SUPPORT NETWORK: Marital status: Parent(s): Mother is and Father is Child/Children: Yes. How many? 2 (1 son, 1 daughter) healthcare facility administrator arrangements needed: No Siblings: 1 sister(s) and 1 brother(s) (brother ) Grandchild(darion): 2 (1 boy, 1 girl from same child) Home Health Provider: No Community Services: No Paula Identified: Yes Holiness/Spirituality: Jew Are these practices or beliefs that may affect or influence treatment? No *EMPLOYMENT/FINANCIAL/HEALTH INSURANCE: Employment: Retired Income source: Social Security and Intermediate Pension Insurance: Medicare with co-insurance Prescription coverage: Yes COBRA Is the patient appropriate for referral to [facility] COBRA Assistance program? No Financial Distress: No [place]: No *LIVING ARRANGEMENTS: Type: House- independent ranch Resides with: Family Alvarez *FUNCTIONAL STATUS: Cognitive limitations: none Physical limitations: high level fatigue and arthritis pain Language barrier: No Hearing Impaired: Yes marked hearing loss, primarily in left ear Speech Impaired: No Visual Impairments: Yes, glasses Literacy Issues: No Special considerations/accommodations needed: No MENTAL HEALTH HISTORY: No History of combat/trauma: No Substance Use and Treatment History: denied History of Abuse: No Issues with: ? Sleep:Yes ? Eating:No ? Exercising: Yes ? Stress Management: No *ADVANCE DIRECTIVES/LEGAL DOCUMENTS: Living Will: Yes Health Care Durable Power of Stereoplotter Operator: Yes Scanned into [employer]: Yes Guardianship: NA Scanned into [employer]:NA *COPING STATUS: Coping Strengths: supportive relationships with immediate family, with friends and with extended family spirituality successful managing past crises hopefulness self advocate strong problem-solving skills ability to plan able to follow direction consistently over time able to communicate effectively Current affect/mood: appropriate History of Loss: Yes, mother, father, brother Adjustment to diagnosis: reflecting understanding, responding appropriately and accepting help *BARRIERS/CARE CHALLENGES: None Are barriers/care challenges identified likely to have an impact on the patient's quality of life during treatment? NA *CLINICAL IMPRESSION: SW met with patient following her chemotherapy education appointment and during her chemotherapy treatment. Patient reports long history of chronic health conditions. Patient has been diagnosed with arthritis since 26 and has a history of heart issues. Patient's parents and brother all passed from heart related issues. Patient also has sleep apnea, which she reports wakes her up a few times every night. Patient reports most of the time she is able to fall back asleep. Patient reports with her chemotherapy she will have a decreased appetite for the week following the treatment, but it returns to normal after that. Patient does have trouble hearing, especially out of her right ear. She also wears glasses. Patient lives with her in a ranch- style home with a basement and loft area over the living room. Patient has lived on the main level since she had her heart surgery a few years ago. Patient has two children and two grandchildren, who all live in the area. Patient also has a sister (her brother from heart issues). 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 Patient has Medicare A and B, AARP and uses [facility] for her prescriptions. Patient does have Advance Directives and reports they are scanned into the system with [facility]. FREYA oriented patient to services and provided her with a list of local cancer resources. FREYA also provided her with a coupon for [employer] since she is interested in getting a wig. She is unsure if she wants to drive to [place]. She will also check [employer] to see if they have anything available. INTERVENTIONS/REFERRALS TO BE PROVIDED: Monitor patient response to treatment Communicate pertinent medical/psychosocial information to Cancer Center team Provide emotional support to patient/family Referral to community resource Assist with financial support applications Psychotherapy/Counseling Education Relaxation Techniques Provided education on distress and screening process Continue follow up as needed Resources and Referrals: ? Internal: [facility] ? External: [facility], [facility] [employer], [employer] PLAN: Follow up appointment with FREYA in: [facility] Allergies As of Date: 10/29/2017 Noted Allergy Reaction CORGARD (NADOLOL) 07/21/2015 12 - Shortness of Breath PENN 07/21/2015 12 - Shortness of Breath MORPHINE 07/21/2015 12 - Shortness of Breath Comments: Pt says she can tolerate oxycodone. PENICILLINS 07/21/2015 12 - Shortness of Breath PRAVACHOL (PRAVASTATIN) 07/21/2015 12 - Shortness of Breath SULFITE 07/21/2015 12 - Shortness of Breath Comments: Sulfites in food. Verified by refrigerator tester. ZOCOR (SIMVASTATIN) 07/21/2015 12 - Shortness of Breath Comments: Pt reports allergy to brand Zocor, tolerates generic. Date Reviewed: 10/26/2017 Reviewed by: Abbie Ribeiro LPN - Fully Assessed Reason for Visit: Psychosocial Assessment [[id number]] Prescriptions as of 10/29/2017 Sig: PREDNISONE 10 MG TABLET Take 1 tablet twice the day b* POTASSIUM CHLORIDE 20 MEQ ORA* Take 20 mEq by mouth once wyatt* AZITHROMYCIN 250 MG TABLET Take two (2) tablets by mouth* RIVAROXABAN 15 MG TABLET Take 1 tablet by mouth daily * Patient taking differently: Take by mouth daily with dinn* ONDANSETRON HCL 8 MG TABLET Take 1 tablet by mouth every * LIDOCAINE-PRILOCAINE 2.5 %-2.* Apply 1 application to affect* SODIUM CHLORIDE 0.9% FLUSH Access implanted vascular acc* HEPARIN, PORCINE (PF) 100 UNI* Access implanted vascular acc* KETOCONAZOLE 2 % TOPICAL CREAM Apply 1 application to affect* LOPERAMIDE 2 MG TABLET Take 2 mg by mouth as needed. PROMETHAZINE 25 MG TABLET Take 0.5-1 tablets by mouth e* SODIUM CHLORIDE 0.9% FLUSH Access implanted vascular acc* HEPARIN LOCK FLUSH (PORCINE) * Access implanted vascular acc* FUROSEMIDE 20 MG TABLET Take 2 tablets by mouth twice* MONTELUKAST 10 MG TABLET Take 1 tablet by mouth daily * FERREX 150 MG IRON CAPSULE Take 1 capsule by mouth once * MAGNESIUM OXIDE 400 MG TABLET Take 400 mg by mouth twice da* CLOTRIMAZOLE-BETAMETHASONE 1 * Apply 1 application to affect* ACETAMINOPHEN 500 MG TABLET Take 1,000 mg by mouth as nee* DIPHENHYDRAMINE 25 MG TABLET Take 50 mg by mouth as needed. HYDROCORTISONE VALERATE 0.2 %* Apply 1 application to affect* ISOSORBIDE MONONITRATE ER 60 * Take 60 mg by mouth once wilman* ASPIRIN 81 MG TABLET,DELAYED * Take 81 mg by mouth once wilman* METOPROLOL TARTRATE 50 MG TAB* Take 50 mg by mouth twice wyatt* LISINOPRIL 10 MG TABLET Take 10 mg by mouth once wilman* OMEPRAZOLE 20 MG CAPSULE,MELODY* Take 20 mg by mouth once wilman* MOMETASONE 220 MCG (60 DOSES)* Inhale 1 Puff as instructed. CHOLECALCIFEROL (VITAMIN D3) * Take 1 tablet by mouth once d* SIMVASTATIN 40 MG TABLET Take 20 mg by mouth daily at * NITROGLYCERIN 0.3 MG SUBLINGU* Dissolve 0.3 mg under the ton* ALBUTEROL SULFATE HFA 90 MCG/* Inhale 2 Puffs as instructed * EPINEPHRINE 0.15 MG/0.15 ML I* by INJECTION(UNSPECIFIED PARE* LORATADINE 10 MG TABLET Take 10 mg by mouth as needed. TRIAMCINOLONE ACETONIDE 0.025* Apply 1 application to affect* Problem List As Of Date 10/29/2017 Noted Resolved Malignant neoplasm of ascending colon (HCC) [C1*INVALID FOR* Abnormal mammogram of left breast [R92.8] INVALID FOR* 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] INVALID FOR* Abnormal magnetic resonance imaging of liver [R*INVALID FOR* Liver metastasis (HCC) [C78.7] INVALID FOR* Diabetes (HCC) [E11.9] INVALID FOR* Hearing loss [H91.90] INVALID FOR* Hypertension [I10] INVALID FOR* Hyperlipidemia [E78.5] INVALID FOR* Carotid artery disease (HCC) [I77.9] INVALID FOR* Coronary artery disease [I25.10] INVALID FOR* Asthma [J45.909] INVALID FOR* Sleep apnea [G47.30] INVALID FOR* Arthritis [M19.90] INVALID FOR* Fibromyalgia [M79.7] INVALID FOR* Atrial arrhythmia [I49.8] INVALID FOR* H/O degenerative disc disease [Z87.39] INVALID FOR* Spondylolysis [M43.00] INVALID FOR* Radiculopathy [M54.10] INVALID FOR* Eczema [L30.9] INVALID FOR* Anemia [D64.9] INVALID FOR* 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*INVALID FOR* Colon cancer (HCC) [C18.9] Encounter Status:Closed by BEBE FINN on 10/29/17 PROGRESS Observed: 10/26/2017 Status: COMPLETED Source: [place] 9:08 AM [facility] REPOSITORY [facility] ID: [id number] Author: Sujit Vasquez Service: (none) Author Type: Physician Type: Progress Notes Filed: 10/26/2017 9:50 AM Note Text: Diagnosis: 1) Metastatic colon cancer. KRAS - No variant detected [Reference sequence: ([id number])]. NRAS - No variant detected [Reference sequence: ([id number])]. BRAF - No variant detected [Reference sequence: ([id number])]. 2) DCIS. 3) IMV thrombus. 4) DVT. HPI: The patient is a 77 yo female with a PMH significant for hyperlipidemia, HTN, CAD (PR, CABG x2 2011; stent x1 2013), PVD (carotid artery stenosis s/p CEA left side 2012), sleep apnea (uses CPAP), arthritis (chronic lower back and from lower thoracic area to the neck pain). She developed rectal bleeding in March and underwent evaluation with EGD. Evidently that study was normal. Next underwent colonoscopy and was observed to have a tumor in the cecum. Had normal colonoscopy about 2 years prior. Underwent right hemicolectomy 07/28/2015. 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 Through muscularis propria into subserosal adipose tissue, but not extending to the serosal surface. All margins negative. No lymphovascular invasion. No perineural invasion. No tumor deposits. None of 14 nodes positive. No evidence MSI by IHC. Had screening mammogram 08/2015. Abnormality left breast. Dx mammo and US 09/06/2015. 6.5 x 7.9 mm nodular density with focal calcifications in fthe slightly upper lateral portion of the left breast. Underwent stereotactic core biopsy 09/15/2015. DCIS, cribriform and solid, grade 2, single cell necrosis; no invasive carcinoma. MRI of the breast 10/11/2015: Longitudinally oriented area of mild enhancement in the central left breast thought to be due to postbiopsy hemorrhage/inflammation. Tumor along this entire length is thought less likely but cannot be excluded. MRI of the abdomen and pelvis 10/13/2015: Liver: There is a large, heterogeneously enhancing mass within the entire lateral segment of the left hepatic lobe and extending into the medial segment as well. This mass measures approximately 8.2 x 5.8 x 6.3 cm. This is most consistent with neoplasm, perhaps metastatic given the patient's history of colonic carcinoma. No additional hepatic lesions are seen. There is patchy hepatic fatty change throughout the right hepatic lobe. Partial, nonocclusive thrombus within the superior mesenteric vein just cephalad to its 1st branch. Liver biopsy--consistent with colorectal primary. Patient received the fourth cycle chemotherapy on 12/22/2015. She developed profuse diarrhea and presented to the emergency department for dehydration and shortness of breath. She was found to be an RVR atrial fibrillation with significant hypomagnesemia. She was admitted and started on IV hydration and magnesium replacement as well as medical management of atrial fibrillation. The diarrhea however continued for several more days during which she was given supportive care. Following that she developed an episode of ileus which extend her hospital stay. She was eventually discharged to rehabilitation. This morning she underwent an ultrasound of both lower extremities. She was found to have an acute DVT in the right common femoral vein. Treated with apixaban. Underwent left-sided lumpectomy for DCIS. Specimen - partial breast Procedure - excision with wire-guided localization Lymph node sampling ? no lymph nodes present Specimen integrity - single intact specimen Specimen size ? 15 x 9 x 4 cm Specimen laterality ? left Tumor site ? not specified Size (extent) of DCIS ? 0.3 cm in greatest dimension. See comment. 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 Architectural pattern - cribriform Nuclear grade - grade 2 (intermediate) Necrosis ? not identified Margins ? margin uninvolved by ductal carcinoma in situ. The tumor is 2 cm away from the closest anterior and posterior margins Treatment effect - no known presurgical therapy. Lymph nodes ? not submitted Distant metastasis ? not replicable Additional Pathologic Findings ? fibrocystic changes. - Focal changes consistent with previous biopsy site. Previous therapy: 1) FOLFOX x1; FOLFOX with Vectibix x3. 2) Underwent left hepatectomy 04/28/2016. Final pathology reviewed. Positive margin was cauterized during surgery. 3) Xeloda. Started cycle #3 11/27/2016 through 02/2017. Presented 01/03 for OV. Had syncopal episode. Taken to ED. Hydrated and felt better. No laboratory or EKG findings of cardiac event. Current therapy: 1) Infusional 5-fluorouracil with oxaliplatin. Presents for ongoing oncologic management--evaluation for cycle 3. Interim history: No adverse reaction to this past cycle. However she is having progressive neuropathy of feet. Previously she said she had some numbness from the balls of the feet distally on the undersurface. Yesterday however set her both her feet felt like stubs. In fact when she was walking up to the check encounter, she put weight wrong on her right ankle and felt a twinge of pain in the forefoot. This still hurting somewhat today. She hasn't had any increase in swelling. She had lingering symptoms of malaise and fatigue little longer this time. Cough is improving albeit not completely resolved. She is no longer wheezing. Postoperative findings were identified in the left breast. There was a group of pleomorphic calcifications in the left breast at the 9:00 anterior depth. Real-time ultrasound of this area demonstrated a 7 mm dilated duct central to the nipple in the retroareolar region. In all this was thought to represent a solid mass or papilloma suspicious for malignancy. Appointment with general surgery has not yet been made. PMH, medications and allergies as below personally reviewed by me today. Any changes documented in appropriate section. ROS: Constitutional: Denies episodes of fever and night sweats. Neuro: Denies vertigo and dizziness. HEENT: No recent change in voice, vision or hearing (significant b/l hearing loss--stable). Resp: See above. CVS: Denies exertional chest pain, PND, orthopnea. GI: See above. : No dysuria or gross hematuria. Stress incontinence stable. Endo: Denies hot flashes. Denies polyuria and polydipsia. Denies heat and cold intolerance. Musculoskeletal: Denies bone, back, joint and muscular pain. Derm: Denies rash. Denies diffuse pruritis. Heme: No unusual bleeding and/or unexplained bruising. Psych: Normal mood. PHYSICAL EXAM: Vitals: Blood pressure 130/60, pulse 80, temperature 36.5 ?C (97.7 ?F), weight 95.5 kg (210 lb 8 oz). Well-appearing and in no acute distress. EYES: Sclerae are anicteric bilaterally. NECK: Supple. No enlargement of thyroid. LYMPHATIC: There is no palpable cervical, supraclavicular adenopathy. RESPIRATORY: Inspiratory breath sounds are of diminished intensity in all pedersen, but much more clear. CARDIOVASCULAR: Rhythm is regular today. Normal intensity S1/S2. ABDOMEN: The abdomen is nondistended and non-tender. Extremities: Free of edema. SKIN: No jaundice or rash. No petechiae. NEUROLOGIC: foil cutter II-XII are grossly intact. No focal motor weakness. ASSESSMENT/PLAN: (C18.2) Malignant neoplasm of ascending colon (HCC) (primary encounter diagnosis) (C78.7) Liver metastasis (HCC) Assessment: -Patient had completed several months of capecitabine following resection for an isolated metastasis. She tolerated capecitabine only marginally and was on lower doses for the last couple cycles. She had marked difficulty with diarrhea, dehydration and several hospitalizations/ER visits for toxicity. However, lung nodule had been stable. -Recent PD with new liver and progressive lung metastasis. -First cycle was complicated by port line rupture. -By history, she did not have an allergic reaction oxaliplatin. Rather in retrospect she had influenza with viral bronchitis and wheezing just prior to treatment and then laryngeal dysesthesia triggered by cold air causing laryngeal spasm and exacerbation of bronchospasm. Symptoms were relieved quickly with the use of MDI inhaler. 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 I recommended changing to irinotecan. I discussed the rationale, logistics, potential risks (including ), benefits and alternatives, as well as the personnel involved in the administration of FOLFIRI. I answered her questions in detail and she verbalized understanding and agreed with the recommended therapy. Please see the electronic consent document for details of doses and schedule. Plan: -Begin FOLFIRI without bolus 5-FU on Sunday. -CT scan after 2 cycles. 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 Plan: -Continue Xarelto. 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 -We discussed some general treatments for breast cancer should this prove to be the case. Surgery would be indicated because it would be potentially curative. Plan: -My office staff will arrange NELL appointment with Dr. Elmore. Sujit Vasquez DO HEPATIC FUNCTN PANEL Collected: 10/26/2017 Status: F Source: [place] 9:02 AM [facility] REPOSITORY TYPE CODE TESTS RESULT OUT OF REFERENCE UNITS RANGE LAB ALB 3.9-4.9 g/dL Low Albumin 3.6 LAB TBIL 0.2-1.3 mg/dL Bilirubin, Total 0.4 LAB CBIL <0.2 mg/dL Bilirubin,Conjuga <0.2 maikel LAB ALKP 32-117 U/L Alkaline High Phosphatase 125 LAB AST 13-35 U/L AST 24 LAB ALT 7-38 U/L ALT 26 LAB TP 6.3-8.0 g/dL Protein, Total 6.4 Performed By: #### HFP, CEA #### [facility] [address] [place], [place] [address] CEA Collected: 10/26/2017 Status: F Source: [place] 9:02 [facility] REPOSITORY TYPE CODE TESTS RESULT OUT OF RANGE REFERENCE UNITS LAB CEA 0.0-2.9 ng/mL High CEA 7.2 Result Comment: Test analyzed by the [place] DxI method. Performed By: #### HFP, CEA #### [facility] [address] [place], [place] [address] KELLEN ABS GR + CBC Collected: 10/26/2017 Status: F Source: [place] 9:01 [facility] REPOSITORY TYPE CODE TESTS RESULT OUT OF REFERENCE UNITS RANGE LAB WWBC 3.70-11.00 k/uL Kellen WBC 3.87 LAB WRBC 3.90-5.20 m/uL Low Kellen RBC 3.53 LAB WHGB 11.5-15.5 g/dL Low [place] Hemoglobin 11.4 LAB WHCT 36.0-46.0 % Low [place] Hematocrit 35.4 LAB WMCV 80.0-100.0 fL Kellen High MCV 100.3 LAB WMCH 26.0-34.0 pg Kellen MCH 32.3 LAB WMCHC 30.5-36.0 g/dL Kellen MCHC 32.2 LAB WRDW 11.5-15.0 % Kellen High RDW 15.1 LAB WPLT 150-400 k/uL Low [place] Platelet Cnt 120 LAB WMPV 9.0-12.7 fL Kellen MPV 9.8 Result Comment: Test performed at: [facility], [address] [place] [address] Rd[address] [place] [address]. LAB ABGRAN 1.45-7.50 k/uL Absol Gran 1.92 Count BMP PLUS [facility] Collected: 10/26/2017 Status: F Source: [place] 9:01 [facility] REPOSITORY TYPE CODE TESTS RESULT OUT OF REFERENCE UNITS RANGE LAB NA 128-145 mmol/L Sodium 144 LAB K 3.6-5.1 mmol/L Potassium 3.9 LAB CL 98-108 mmol/L Chloride 103 LAB CO2 18-33 mmol/L CO2 29 LAB CRET 0.6-1.2 mg/dL Creatinine 1.00 LAB BUN 7-22 mg/dL BUN 22 LAB GLU 73-118 mg/dL Glucose High 156 LAB CA 8.0-10.3 mg/dL Calcium, Total 9.0 LAB MG 1.6-2.3 mg/dL Magnesium 1.7 LAB AGAP 9-18 mmol/L Anion Gap 12 LAB GFRAA eGFR- >60 Amer. LAB GFRNAA . eGFR-All Other Races 54 Result Comment: eGFR (Estimated GFR) Units of measure: mL/min/1.73 meters squared eGFR is derived from the reexpressed MDRD Study equation using the following parameters: serum creatinine, age, gender and race. The creatinine assay has been calibrated to be traceable to IDMS. An eGFR <60 mL/min/1.73m2 for >3 months is consistent with chronic kidney disease. Refer to KDOQI guidelines for clinical interpretation. In patients with unstable renal function, e.g. those with acute kidney injury, the eGFR may not accurately reflect actual GFR. CNOVSP Observed: 10/26/2017 Status: COMPLETED Source: [place] 9:00 AM [facility] REPOSITORY Visit (SP) Office ([place]) QUYEN COKER ([id number]) 1940 [address] [facility] Date Time Provider Department 10/26/17 9:00 AM SUJIT VASQUEZ During your visit today, we recorded the following information about you: Temperature Pulse Blood pressure Weight 97.7 degrees 80/minute 130/60 95.5 kg Abbie Ribeiro LPN 10/26/2017 9:15 AM Signed Est patient. Discuss recent labs. Abbie Vasquez DO 10/26/2017 9:50 AM Signed Diagnosis: 1) Metastatic colon cancer. KRAS - No variant detected [Reference sequence: ([id number])]. NRAS - No variant detected [Reference sequence: ([id number])]. BRAF - No variant detected [Reference sequence: (NM_[id number])]. 2) DCIS. 3) IMV thrombus. 4) DVT. HPI: The patient is a 77 yo female with a PMH significant for hyperlipidemia, HTN, CAD (PR, CABG x2 2011; stent x1 2013), PVD (carotid artery stenosis s/p CEA left side 2012), sleep apnea (uses CPAP), arthritis (chronic lower back and from lower thoracic area to the neck pain). She developed rectal bleeding in March and underwent evaluation with EGD. Evidently that study was normal. Next underwent colonoscopy and was observed to have a tumor in the cecum. Had normal colonoscopy about 2 years prior. Underwent right hemicolectomy 07/28/2015. 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 Through muscularis propria into subserosal adipose tissue, but not extending to the serosal surface. All margins negative. No lymphovascular invasion. No perineural invasion. No tumor deposits. None of 14 nodes positive. No evidence MSI by IHC. Had screening mammogram 08/2015. Abnormality left breast. Dx mammo and US 09/06/2015. 6.5 x 7.9 mm nodular density with focal calcifications in fthe slightly upper lateral portion of the left breast. Underwent stereotactic core biopsy 09/15/2015. DCIS, cribriform and solid, grade 2, single cell necrosis; no invasive carcinoma. MRI of the breast 10/11/2015: Longitudinally oriented area of mild enhancement in the central left breast thought to be due to postbiopsy hemorrhage/inflammation. Tumor along this entire length is thought less likely but cannot be excluded. MRI of the abdomen and pelvis 10/13/2015: Liver: There is a large, heterogeneously enhancing mass within the entire lateral segment of the left hepatic lobe and extending into the medial segment as well. This mass measures approximately 8.2 x 5.8 x 6.3 cm. This is most consistent with neoplasm, perhaps metastatic given the patient's history of colonic carcinoma. No additional hepatic lesions are seen. There is patchy hepatic fatty change throughout the right hepatic lobe. Partial, nonocclusive thrombus within the superior mesenteric vein just cephalad to its 1st branch. Liver biopsy--consistent with colorectal primary. Patient received the fourth cycle chemotherapy on 12/22/2015. She developed profuse diarrhea and presented to the emergency department for dehydration and shortness of breath. She was found to be an RVR atrial fibrillation with significant hypomagnesemia. She was admitted and started on IV hydration and magnesium replacement as well as medical management of atrial fibrillation. The diarrhea however continued for several more days during which she was given supportive care. Following that she developed an episode of ileus which extend her hospital stay. She was eventually discharged to rehabilitation. This morning she underwent an ultrasound of both lower extremities. She was found to have an acute DVT in the right common femoral vein. Treated with apixaban. Underwent left-sided lumpectomy for DCIS. Specimen - partial breast Procedure - excision with wire-guided localization Lymph node sampling ? no lymph nodes present Specimen integrity - single intact specimen Specimen size ? 15 x 9 x 4 cm Specimen laterality ? left Tumor site ? not specified Size (extent) of DCIS ? 0.3 cm in greatest dimension. See comment. 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 Architectural pattern - cribriform Nuclear grade - grade 2 (intermediate) Necrosis ? not identified Margins ? margin uninvolved by ductal carcinoma in situ. The tumor is 2 cm away from the closest anterior and posterior margins Treatment effect - no known presurgical therapy. Lymph nodes ? not submitted Distant metastasis ? not replicable Additional Pathologic Findings ? fibrocystic changes. - Focal changes consistent with previous biopsy site. Previous therapy: 1) FOLFOX x1; FOLFOX with Vectibix x3. 2) Underwent left hepatectomy 04/28/2016. Final pathology reviewed. Positive margin was cauterized during surgery. 3) Xeloda. Started cycle #3 11/27/2016 through 02/2017. Presented 01/03 for OV. Had syncopal episode. Taken to ED. Hydrated and felt better. No laboratory or EKG findings of cardiac event. Current therapy: 1) Infusional 5-fluorouracil with oxaliplatin. Presents for ongoing oncologic management--evaluation for cycle 3. Interim history: No adverse reaction to this past cycle. However she is having progressive neuropathy of feet. Previously she said she had some numbness from the balls of the feet distally on the undersurface. Yesterday however set her both her feet felt like stubs. In fact when she was walking up to the check encounter, she put weight wrong on her right ankle and felt a twinge of pain in the forefoot. This still hurting somewhat today. She hasn't had any increase in swelling. She had lingering symptoms of malaise and fatigue little longer this time. Cough is improving albeit not completely resolved. She is no longer wheezing. Postoperative findings were identified in the left breast. There was a group of pleomorphic calcifications in the left breast at the 9:00 anterior depth. Real-time ultrasound of this area demonstrated a 7 mm dilated duct central to the nipple in the retroareolar region. In all this was thought to represent a solid mass or papilloma suspicious for malignancy. Appointment with general surgery has not yet been made. PMH, medications and allergies as below personally reviewed by me today. Any changes documented in appropriate section. ROS: Constitutional: Denies episodes of fever and night sweats. Neuro: Denies vertigo and dizziness. HEENT: No recent change in voice, vision or hearing (significant b/l hearing loss--stable). Resp: See above. CVS: Denies exertional chest pain, PND, orthopnea. GI: See above. : No dysuria or gross hematuria. Stress incontinence stable. Endo: Denies hot flashes. Denies polyuria and polydipsia. Denies heat and cold intolerance. Musculoskeletal: Denies bone, back, joint and muscular pain. Derm: Denies rash. Denies diffuse pruritis. Heme: No unusual bleeding and/or unexplained bruising. Psych: Normal mood. PHYSICAL EXAM: Vitals: Blood pressure 130/60, pulse 80, temperature 36.5 ?C (97.7 ?F), weight 95.5 kg (210 lb 8 oz). Well-appearing and in no acute distress. EYES: Sclerae are anicteric bilaterally. NECK: Supple. No enlargement of thyroid. LYMPHATIC: There is no palpable cervical, supraclavicular adenopathy. RESPIRATORY: Inspiratory breath sounds are of diminished intensity in all pedersen, but much more clear. CARDIOVASCULAR: Rhythm is regular today. Normal intensity S1/S2. ABDOMEN: The abdomen is nondistended and non-tender. Extremities: Free of edema. SKIN: No jaundice or rash. No petechiae. NEUROLOGIC: foil cutter II-XII are grossly intact. No focal motor weakness. ASSESSMENT/PLAN: (C18.2) Malignant neoplasm of ascending colon (HCC) (primary encounter diagnosis) (C78.7) Liver metastasis (HCC) Assessment: -Patient had completed several months of capecitabine following resection for an isolated metastasis. She tolerated capecitabine only marginally and was on lower doses for the last couple cycles. She had marked difficulty with diarrhea, dehydration and several hospitalizations/ER visits for toxicity. However, lung nodule had been stable. -Recent PD with new liver and progressive lung metastasis. -First cycle was complicated by port line rupture. -By history, she did not have an allergic reaction oxaliplatin. Rather in retrospect she had influenza with viral bronchitis and wheezing just prior to treatment and then laryngeal dysesthesia triggered by cold air causing laryngeal spasm and exacerbation of bronchospasm. Symptoms were relieved quickly with the use of MDI inhaler. 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 I recommended changing to irinotecan. I discussed the rationale, logistics, potential risks (including ), benefits and alternatives, as well as the personnel involved in the administration of FOLFIRI. I answered her questions in detail and she verbalized understanding and agreed with the recommended therapy. Please see the electronic consent document for details of doses and schedule. Plan: -Begin FOLFIRI without bolus 5-FU on Sunday. -CT scan after 2 cycles. 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 Plan: -Continue Xarelto. 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 -We discussed some general treatments for breast cancer should this prove to be the case. Surgery would be indicated because it would be potentially curative. Plan: -My office staff will arrange NELL appointment with Dr. Elmore. Sujit Vasquez DO Referring Provider: SUJIT VASQUEZ [[id number]] Allergies As of Date: 10/26/2017 Noted Allergy Reaction CORGARD (NADOLOL) 07/21/2015 12 - Shortness of Breath PENN 07/21/2015 12 - Shortness of Breath MORPHINE 07/21/2015 12 - Shortness of Breath Comments: Pt says she can tolerate oxycodone. PENICILLINS 07/21/2015 12 - Shortness of Breath PRAVACHOL (PRAVASTATIN) 07/21/2015 12 - Shortness of Breath SULFITE 07/21/2015 12 - Shortness of Breath Comments: Sulfites in food. Verified by refrigerator tester. ZOCOR (SIMVASTATIN) 07/21/2015 12 - Shortness of Breath Comments: Pt reports allergy to brand Zocor, tolerates generic. Date Reviewed: 10/26/2017 Reviewed by: Abbie Ribeiro UX MANAGER - Fully Assessed Reason for Visit: Established Patient [175] Primary Visit Diagnosis:Malignant neoplasm of ascending colon (HCC) [C18.2] Other Visit Diagnoses:Liver metastasis (HCC) [C78.7] Mesenteric vein thrombosis [I81] Ductal carcinoma in situ (DCIS) of left breast [D05.12] Follow-up and Disposition History Recorded Prescriptions as of 10/26/2017 Sig: PREDNISONE 10 MG TABLET Take 1 tablet twice the day b* POTASSIUM CHLORIDE 20 MEQ ORA* Take 20 mEq by mouth once wyatt* RIVAROXABAN 15 MG TABLET Take 1 tablet by mouth daily * Patient taking differently: Take by mouth daily with dinn* ONDANSETRON HCL 8 MG TABLET Take 1 tablet by mouth every * LIDOCAINE-PRILOCAINE 2.5 %-2.* Apply 1 application to affect* SODIUM CHLORIDE 0.9% FLUSH Access implanted vascular acc* HEPARIN, PORCINE (PF) 100 UNI* Access implanted vascular acc* LOPERAMIDE 2 MG TABLET Take 2 mg by mouth as needed. SODIUM CHLORIDE 0.9% FLUSH Access implanted vascular acc* HEPARIN LOCK FLUSH (PORCINE) * Access implanted vascular acc* FUROSEMIDE 20 MG TABLET Take 2 tablets by mouth twice* MONTELUKAST 10 MG TABLET Take 1 tablet by mouth daily * MAGNESIUM OXIDE 400 MG TABLET Take 400 mg by mouth twice da* ACETAMINOPHEN 500 MG TABLET Take 1,000 mg by mouth as nee* DIPHENHYDRAMINE 25 MG TABLET Take 50 mg by mouth as needed. ISOSORBIDE MONONITRATE ER 60 * Take 60 mg by mouth once wilman* ASPIRIN 81 MG TABLET,DELAYED * Take 81 mg by mouth once wilman* METOPROLOL TARTRATE 50 MG TAB* Take 50 mg by mouth twice wyatt* LISINOPRIL 10 MG TABLET Take 10 mg by mouth once wilman* OMEPRAZOLE 20 MG CAPSULE,MELODY* Take 20 mg by mouth once wilman* MOMETASONE 220 MCG (60 DOSES)* Inhale 1 Puff as instructed. CHOLECALCIFEROL (VITAMIN D3) * Take 1 tablet by mouth once d* SIMVASTATIN 40 MG TABLET Take 20 mg by mouth daily at * NITROGLYCERIN 0.3 MG SUBLINGU* Dissolve 0.3 mg under the ton* ALBUTEROL SULFATE HFA 90 MCG/* Inhale 2 Puffs as instructed * EPINEPHRINE 0.15 MG/0.15 ML I* by INJECTION(UNSPECIFIED PARE* LORATADINE 10 MG TABLET Take 10 mg by mouth as needed. AZITHROMYCIN 250 MG TABLET Take two (2) tablets by mouth* KETOCONAZOLE 2 % TOPICAL CREAM Apply 1 application to affect* PROMETHAZINE 25 MG TABLET Take 0.5-1 tablets by mouth e* FERREX 150 MG IRON CAPSULE Take 1 capsule by mouth once * CLOTRIMAZOLE-BETAMETHASONE 1 * Apply 1 application to affect* HYDROCORTISONE VALERATE 0.2 %* Apply 1 application to affect* TRIAMCINOLONE ACETONIDE 0.025* Apply 1 application to affect* Problem List As Of Date 10/26/2017 Noted Resolved Malignant neoplasm of ascending colon (HCC) [C1*INVALID FOR* Abnormal mammogram of left breast [R92.8] INVALID FOR* 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] INVALID FOR* Abnormal magnetic resonance imaging of liver [R*INVALID FOR* Liver metastasis (HCC) [C78.7] INVALID FOR* Diabetes (HCC) [E11.9] INVALID FOR* Hearing loss [H91.90] INVALID FOR* Hypertension [I10] INVALID FOR* Hyperlipidemia [E78.5] INVALID FOR* Carotid artery disease (HCC) [I77.9] INVALID FOR* Coronary artery disease [I25.10] INVALID FOR* Asthma [J45.909] INVALID FOR* Sleep apnea [G47.30] INVALID FOR* Arthritis [M19.90] INVALID FOR* Fibromyalgia [M79.7] INVALID FOR* Atrial arrhythmia [I49.8] INVALID FOR* H/O degenerative disc disease [Z87.39] INVALID FOR* Spondylolysis [M43.00] INVALID FOR* Radiculopathy [M54.10] INVALID FOR* Eczema [L30.9] INVALID FOR* Anemia [D64.9] INVALID FOR* 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*INVALID FOR* Colon cancer (HCC) [C18.9] Visit Notes: >> Abbie Ribeiro LPN SunOct 26, 2017 9:03 AM Status: Signed Est patient. Discuss recent labs. Abbie Ribeiro LPN Encounter Status:Closed by SUJIT VASQUEZ DO on 10/26/17 CAROTID DUPLEX Observed: 10/19/2017 Status: F Source: [facility] ULTRASOUND 2:36 PM [facility] REPOSITORY [facility] Cardi[facility] [address] [place] [address] Carotid Duplex Ultrasound 10/18/17 1000 MR#: [id number] Acct: [id number] Name: QUYEN COKER Rep #: [id number] : 1940 77 From: Junior Fall MD Attending Dr: MATTEO WAGONER MD Status: REG CLI Ordering Dr: Matteo Wagoner MD Date: 10/18/17 Location: [facility] Sex: F C Admitted: Reason For Study: carotid stenosis Rt. Velocities/BP Lt. Velocities/BP Prox CCA 97.9/21.1 cm/sec. Prox CCA 106/18.9 cm/sec. Mid CCA 66.3/17.0 cm/sec. Mid CCA 73.9/19.3 cm/sec. Dist CCA 59.2/12.9 cm/sec. Dist CCA 75.0/15.2 cm/sec. Prox ICA 96.7/29.9 cm/sec. Prox ICA 79.7/25.2 cm/sec. Mid ICA 101/35.8 cm/sec. Mid ICA 101/30.5 cm/sec. Dist ICA 90.9/29.9 cm/sec. Dist ICA 79.2/24.6 cm/sec. Rt. ICA/CCA = 1.5. Lt. ICA/CCA = 1.4. Prox ECA 85.6/8.64 cm/sec. Prox ECA 79.2/7.62 cm/sec. Rt. Vert. 40.9/11.4 cm/sec. Lt. Vert. 40.7/12.9 cm/sec. Right Extracranial There is homogeneous, smooth atherosclerotic plaque noted in the right common carotid artery. There is heterogeneous, irregular atherosclerotic plaque noted in the right internal carotid artery. There is heterogeneous, irregular atherosclerotic plaque noted in the right external carotid artery. Antegrade flow is noted in the right vertebral artery. Left Extracranial There is intimal thickening but no significant atherosclerotic plaque noted in the left common carotid artery. There is homogeneous, smooth atherosclerotic plaque noted in the left internal carotid artery. There is intimal thickening but no significant atherosclerotic plaque noted in the left external carotid artery. Antegrade flow is noted in the left vertebral artery. Procedure Carotid Duplex 15519. The exam was diagnostic. Exam performed in department. Interpretation Summary Mild (<50%) stenosis right extracranial internal carotid. Mild (<50%) stenosis left extracranial internal carotid. Flow within the vertebral arteries is antegrade bilaterally. Ordering Physician: MATTEO WAGONER Performed By: Madhav Hobbs RVT 10/19/17 1436 Date Junior Fall MD CC: MATTEO WAGONER MD; Alvarez Mccoy MD Date Dictated: 10/18/17 1000 Date Transcribed: 10/19/171435 Aerologist: Signed CNCO Observed: 10/17/2017 Status: COMPLETED Source: [place] 3:09 PM [facility] REPOSITORY O ID: [id number] Author: Mammography Coordinator Service: (none) Author Type: Physician Type: Letter Filed: 10/18/2017 11:32 PM Note Text: October 17, 2017 PID: [id number] Quyen Coker [address] [place] [address] Dear Ms. Coker, Your recent breast imaging exam on 10/17/2017 showed an abnormal area. At this time we recommend further evaluation. This does not necessarily mean that there is a serious problem in your breast, but it should not be ignored. Please contact your physician as soon as possible to discuss the results of this exam and decide what the next steps in your medical care should be. If you have already been notified of these findings, please disregard this letter. Thank you for allowing us to help in meeting your health care needs. Sincerely, Dr. Snow Interpreting Radiologist [facility] (Abnormal) CNCO Observed: 10/17/2017 Status: COMPLETED Source: [place] 3:09 PM [facility] REPOSITORY HNO ID: [id number] Author: Mammography Coordinator Service: (none) Author Type: Physician Type: Letter Filed: 10/18/2017 11:32 PM Note Text: October 17, 2017 PID: [id number] Quyen Coker [address] [place] [address] Dear Ms. Coker, Your recent breast imaging exam on 10/17/2017 showed an abnormal area. At this time we recommend further evaluation. This does not necessarily mean that there is a serious problem in your breast, but it should not be ignored. Please contact your physician as soon as possible to discuss the results of this exam and decide what the next steps in your medical care should be. If you have already been notified of these findings, please disregard this letter. Thank you for allowing us to help in meeting your health care needs. Sincerely, Dr. Snow Interpreting Radiologist [facility] (Abnormal) [facility] [employer] BREAST LTD Observed: 10/17/2017 Status: F Source: [facility] 2:54 PM [facility] REPOSITORY * * *Final Report* * * DATE OF EXAM: Oct 17 2017 2:54PM WRU [id number] - [facility] US BREAST LTD LT / PROCEDURE REASON: 6 month bilateral / left breast / abnormal mammogram * * * * Physician Interpretation * * * * #[id number] - [facility] DIAGNOSTIC YAN BILATERAL DIGITAL DIAGNOSTIC MAMMOGRAM WITH CAD: 10/17/2017 HISTORY: 6 Month Bilateral / Left Breast / Abnormal Mammogram. RESULT: TECHNIQUE: The study was acquired using full field digital technology and interpreted from soft copy. Current study was also evaluated with a Computer Aided Detection (CAD). Comparison is made to exams dated: 02/13/2017 mammogram, 09/04/2016 mammogram - [facility], 09/06/2015 mammogram, and 09/03/2015 mammogram. There are scattered fibroglandular elements in both breasts. The left breast has post-operative findings. There are grouped pleomorphic calcifications in the left breast at 9 o'clock anterior depth. No other significant masses, calcifications, or other findings are seen in either breast. SUSPICIOUS FINDING - BIOPSY SHOULD BE CONSIDERED The grouped pleomorphic calcifications in the left breast are suspicious of malignancy. A stereotactic biopsy is recommended. There is no abnormality seen in the left breast to correspond with the discharge from the nipple, however, clinical correlation is recommended. #[id number] - [facility] US BREAST LTD LT ULTRASOUND OF LEFT BREAST: 10/17/2017 RESULT: Comparison is made to exams dated: 02/13/2017 mammogram, 09/04/2016 mammogram - [facility], 09/06/2015 mammogram, and 09/03/2015 mammogram. Real-time ultrasound of the left breast was performed. There is a 7 mm dilated duct in the left breast central to the nipple in the retroareolar region. This dilated duct displays internal echoes. IMPRESSION: SUSPICIOUS FINDING - BIOPSY SHOULD BE CONSIDERED - FOLLOW-UP RECOMMENDED The 7 mm dilated duct in the left breast resembles a solid mass or a papilloma and is suspicious of malignancy. An ultrasound guided biopsy is recommended. Juancarlos andersen/giovanny:10/17/2017 15:09:57 Cash Room Clerk: Aubrie Martinez RT(R)(M), [facility] letter sent: Abnormal Mammogram BI-RADS: 4 Suspicious finding - Biopsy should be considered Ultrasound BI-RADS: 4 Suspicious finding - Biopsy should be considered Aerologist: Giovanny Transcribe Date/Time: Oct 17 2017 1:56P Dictated by : JUANCARLOS SNOW MD This examination was interpreted and the report reviewed and electronically signed by: JUANCARLOS SNOW MD on Oct 17 2017 3:09PM EST [id number] [facility] DIAGNOSTIC YAN Observed: 10/17/2017 Status: F Source: [place] 2:53 PM [facility] REPOSITORY * * *Final Report* * * DATE OF EXAM: Oct 17 2017 2:53PM MANNIE [id number] - [facility] DIAGNOSTIC YAN / PROCEDURE REASON: 6 month bilateral / left breast / abnormal mammogram * * * * Physician Interpretation * * * * RESULT: #[id number] - [facility] DIAGNOSTIC YAN BILATERAL DIGITAL DIAGNOSTIC MAMMOGRAM WITH CAD: 10/17/2017 HISTORY: 6 Month Bilateral / Left Breast / Abnormal Mammogram. RESULT: TECHNIQUE: The study was acquired using full field digital technology and interpreted from soft copy. Current study was also evaluated with a Computer Aided Detection (CAD). Comparison is made to exams dated: 02/13/2017 mammogram, 09/04/2016 mammogram - [facility], 09/06/2015 mammogram, and 09/03/2015 mammogram. There are scattered fibroglandular elements in both breasts. The left breast has post-operative findings. There are grouped pleomorphic calcifications in the left breast at 9 o'clock anterior depth. No other significant masses, calcifications, or other findings are seen in either breast. SUSPICIOUS FINDING - BIOPSY SHOULD BE CONSIDERED The grouped pleomorphic calcifications in the left breast are suspicious of malignancy. A stereotactic biopsy is recommended. There is no abnormality seen in the left breast to correspond with the discharge from the nipple, however, clinical correlation is recommended. #[id number] - [facility] BREAST [facility] ULTRASOUND OF LEFT BREAST: 10/17/2017 RESULT: Comparison is made to exams dated: 02/13/2017 mammogram, 09/04/2016 mammogram - [facility], 09/06/2015 mammogram, and 09/03/2015 mammogram. Real-time ultrasound of the left breast was performed. There is a 7 mm dilated duct in the left breast central to the nipple in the retroareolar region. This dilated duct displays internal echoes. IMPRESSION: SUSPICIOUS FINDING - BIOPSY SHOULD BE CONSIDERED - FOLLOW-UP RECOMMENDED The 7 mm dilated duct in the left breast resembles a solid mass or a papilloma and is suspicious of malignancy. An ultrasound guided biopsy is recommended. Juancarlos andersen/giovanny:10/17/2017 15:09:57 Cash Room Clerk: Aubrie CAZARES(Michael)(Luis Miguel), [facility] letter sent: Abnormal Mammogram BI-RADS: 4 Suspicious finding - Biopsy should be considered Ultrasound BI-RADS: 4 Suspicious finding - Biopsy should be considered Aerologist: Giovanny Transcribe Date/Time: Oct 17 2017 1:56P Dictated by: JUANCARLOS SNOW MD This examination was interpreted and the report reviewed and electronically signed by: JUANCARLOS SNOW MD on Oct 17 2017 3:09PM EST [id number] Observed: 10/17/2017 Status: COMPLETED Source: [place] [address]:40 PM [facility] REPOSITORY HNO ID: [id number] Author: Carolyn Young Service: (none) Author Type: (none) Type: Progress Notes Filed: 10/17/2017 3:12 PM Note Text: Radiology Service Progress Note PATIENT NAME: Quyen Coker DATE OF SERVICE: October 17, 2017 TIME: 2:40 PM PATIENT IDENTITY VERIFICATION COMPLETED USING TWO (2) METHODS: Patient confirmed name verbally and Date of . PATIENT GENDER DATA: Female. status: : No status: NO. PATIENT RELEVANT IMPLANT DATA REVIEWED: Yes RADIOLOGY DEPARTMENT: Ultrasound PERIPHERAL IV DATA: Not applicable SIGNED BY: Carolyn Young October 17, 2017 2:40 PM PROGRESS Observed: 10/12/2017 Status: COMPLETED Source: [place] 2:55 PM [facility] REPOSITORY HNO ID: [id number] Author: Sujit Vasquez Service: (none) Author Type: Physician Type: Progress Notes Filed: 10/12/2017 3:22 PM Note Text: Diagnosis: 1) Metastatic colon cancer. KRAS - No variant detected [Reference sequence: (NM_[id number])]. NRAS - No variant detected [Reference sequence: (NM_[id number])]. BRAF - No variant detected [Reference sequence: (NM_[id number])]. 2) DCIS. 3) IMV thrombus. 4) DVT. HPI: The patient is a 77 yo female with a PMH significant for hyperlipidemia, HTN, CAD (PR, CABG x2 2011; stent x1 2013), PVD (carotid artery stenosis s/p CEA left side 2012), sleep apnea (uses CPAP), arthritis (chronic lower back and from lower thoracic area to the neck pain). She developed rectal bleeding in March and underwent evaluation with EGD. Evidently that study was normal. Next underwent colonoscopy and was observed to have a tumor in the cecum. Had normal colonoscopy about 2 years prior. Underwent right hemicolectomy 07/28/2015. 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 Through muscularis propria into subserosal adipose tissue, but not extending to the serosal surface. All margins negative. No lymphovascular invasion. No perineural invasion. No tumor deposits. None of 14 nodes positive. No evidence MSI by IHC. Had screening mammogram 08/2015. Abnormality left breast. Dx mammo and US 09/06/2015. 6.5 x 7.9 mm nodular density with focal calcifications in fthe slightly upper lateral portion of the left breast. Underwent stereotactic core biopsy 09/15/2015. DCIS, cribriform and solid, grade 2, single cell necrosis; no invasive carcinoma. MRI of the breast 10/11/2015: Longitudinally oriented area of mild enhancement in the central left breast thought to be due to postbiopsy hemorrhage/inflammation. Tumor along this entire length is thought less likely but cannot be excluded. MRI of the abdomen and pelvis 10/13/2015: Liver: There is a large, heterogeneously enhancing mass within the entire lateral segment of the left hepatic lobe and extending into the medial segment as well. This mass measures approximately 8.2 x 5.8 x 6.3 cm. This is most consistent with neoplasm, perhaps metastatic given the patient's history of colonic carcinoma. No additional hepatic lesions are seen. There is patchy hepatic fatty change throughout the right hepatic lobe. Partial, nonocclusive thrombus within the superior mesenteric vein just cephalad to its 1st branch. Liver biopsy--consistent with colorectal primary. Patient received the fourth cycle chemotherapy on 12/22/2015. She developed profuse diarrhea and presented to the emergency department for dehydration and shortness of breath. She was found to be an RVR atrial fibrillation with significant hypomagnesemia. She was admitted and started on IV hydration and magnesium replacement as well as medical management of atrial fibrillation. The diarrhea however continued for several more days during which she was given supportive care. Following that she developed an episode of ileus which extend her hospital stay. She was eventually discharged to rehabilitation. This morning she underwent an ultrasound of both lower extremities. She was found to have an acute DVT in the right common femoral vein. Treated with apixaban. Underwent left-sided lumpectomy for DCIS. Specimen - partial breast Procedure - excision with wire-guided localization Lymph node sampling ? no lymph nodes present Specimen integrity - single intact specimen Specimen size ? 15 x 9 x 4 cm Specimen laterality ? left Tumor site ? not specified Size (extent) of DCIS ? 0.3 cm in greatest dimension. See comment. 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 Architectural pattern - cribriform Nuclear grade - grade 2 (intermediate) Necrosis ? not identified Margins ? margin uninvolved by ductal carcinoma in situ. The tumor is 2 cm away from the closest anterior and posterior margins Treatment effect - no known presurgical therapy. Lymph nodes ? not submitted Distant metastasis ? not replicable Additional Pathologic Findings ? fibrocystic changes. - Focal changes consistent with previous biopsy site. Previous therapy: 1) FOLFOX x1; FOLFOX with Vectibix x3. 2) Underwent left hepatectomy 04/28/2016. Final pathology reviewed. Positive margin was cauterized during surgery. 3) Xeloda. Started cycle #3 11/27/2016 through 02/2017. Presented 01/03 for OV. Had syncopal episode. Taken to ED. Hydrated and felt better. No laboratory or EKG findings of cardiac event. Current therapy: 1) Infusional 5-fluorouracil with oxaliplatin. Presents for ongoing oncologic management--evaluation for cycle 3. Interim history: Prior to her third cycle of treatment, she developed a cough about 3 days before. On day 1 of treatment after she was hooked up to the pump, she went out to the restroom in the lobby and while there she had palpitations and a feeling of being warm and flushed. Then when she went out the door to get in the car she had laryngeal spasm that triggered bronchospasm. The outside temperature was 13?. Patient was taken by squad to the ED. She was found to be in A. fib, and also was diagnosed with influenza. After using her own MDI, her bronchospasm rapidly improved before the squad got here. Later that evening when she went home she drank some colder water from the tap and had another episode of laryngeal spasm although not as bad. She's had no fever. She continues to have occasional cough but no subjective feeling of wheezing. She's not been having diarrhea but she has some loose stools. Appetite is doing well. No nausea. PMH, medications and allergies as below personally reviewed by me today. Any changes documented in appropriate section. ROS: Constitutional: Denies episodes of fever and night sweats. Neuro: Denies vertigo and dizziness. HEENT: No recent change in voice, vision or hearing (significant b/l hearing loss--stable). Resp: See above. CVS: Denies exertional chest pain, PND, orthopnea. GI: See above. : No dysuria or gross hematuria. Stress incontinence stable. Endo: Denies hot flashes. Denies polyuria and polydipsia. Denies heat and cold intolerance. Musculoskeletal: Denies bone, back, joint and muscular pain. Derm: Denies rash. Denies diffuse pruritis. Heme: No unusual bleeding and/or unexplained bruising. Psych: Normal mood. PHYSICAL EXAM: Vitals: Blood pressure 114/65, pulse 62, temperature 36.7 ?C (98.1 ?F), temperature source Oral, weight 95.3 kg (210 lb). Well-appearing and in no acute distress. EYES: Sclerae are anicteric bilaterally. NECK: Supple. No enlargement of thyroid. LYMPHATIC: There is no palpable cervical, supraclavicular adenopathy. RESPIRATORY: Inspiratory breath sounds are of diminished intensity in all pedersen. Scattered inspiratory wheezes all throughout. CARDIOVASCULAR: Rhythm is regular today. Normal intensity S1/S2. ABDOMEN: The abdomen is nondistended and non-tender. Extremities: Free of edema. SKIN: No jaundice or rash. No petechiae. NEUROLOGIC: foil cutter II-XII are grossly intact. No focal motor weakness. ASSESSMENT/PLAN: (C18.2) Malignant neoplasm of ascending colon (HCC) (primary encounter diagnosis) (C78.7) Liver metastasis (HCC) Assessment: -Patient had completed several months of capecitabine following resection for an isolated metastasis. She tolerated capecitabine only marginally and was on lower doses for the last couple cycles. She had marked difficulty with diarrhea, dehydration and several hospitalizations/ER visits for toxicity. However, lung nodule had been stable. -Recent PD with new liver and progressive lung metastasis. -First cycle was complicated by port line rupture. -By history, she did not have an allergic reaction oxaliplatin. Rather in retrospect she had influenza with viral bronchitis and wheezing just prior to treatment and then laryngeal dysesthesia triggered by cold air causing laryngeal spasm and exacerbation of bronchospasm. Symptoms were relieved quickly with the use of MDI inhaler. -Results of CT scans reviewed in detail. Objective response. -I recommended a tapering course of prednisone for the continued wheezing that she's been having although she doesn't appreciate it. This will also give her some steroid prep for Mondays chemotherapy. We will plan to continue FOLFOX for now. Plan: -Okay for chemotherapy on Sunday. -I wrote out tapering prednisone 30 mg daily for 3 days and 20 mg daily for 3 days then 10 mg daily for 3 days then stop. 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 Plan: -Continue Xarelto. Sujit Vasquez DO CNOVSP Observed: 10/12/2017 Status: COMPLETED Source: [place] 2:50 PM [facility] REPOSITORY Visit (SP) Office ([place]) QUYEN COKER ([id number]) 1940 F CHT Date Time Provider Department 10/12/17 2:50 PM SUJIT VASQUEZ During your visit today, we recorded the following information about you: Temperature Pulse Blood pressure Weight 98.1 degrees 62/minute 114/65 95.3 kg Sujit Vasquez DO 10/12/2017 3:22 PM Signed Diagnosis: 1) Metastatic colon cancer. KRAS - No variant detected [Reference sequence: (NM_[id number])]. NRAS - No variant detected [Reference sequence: ([id number])]. BRAF - No variant detected [Reference sequence: (NM_[id number])]. 2) DCIS. 3) IMV thrombus. 4) DVT. HPI: The patient is a 77 yo female with a PMH significant for hyperlipidemia, HTN, CAD (PR, CABG x2 2011; stent x1 2013), PVD (carotid artery stenosis s/p CEA left side 2012), sleep apnea (uses CPAP), arthritis (chronic lower back and from lower thoracic area to the neck pain). She developed rectal bleeding in March and underwent evaluation with EGD. Evidently that study was normal. Next underwent colonoscopy and was observed to have a tumor in the cecum. Had normal colonoscopy about 2 years prior. Underwent right hemicolectomy 07/28/2015. 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 Through muscularis propria into subserosal adipose tissue, but not extending to the serosal surface. All margins negative. No lymphovascular invasion. No perineural invasion. No tumor deposits. None of 14 nodes positive. No evidence MSI by IHC. Had screening mammogram 08/2015. Abnormality left breast. Dx mammo and US 09/06/2015. 6.5 x 7.9 mm nodular density with focal calcifications in fthe slightly upper lateral portion of the left breast. Underwent stereotactic core biopsy 09/15/2015. DCIS, cribriform and solid, grade 2, single cell necrosis; no invasive carcinoma. MRI of the breast 10/11/2015: Longitudinally oriented area of mild enhancement in the central left breast thought to be due to postbiopsy hemorrhage/inflammation. Tumor along this entire length is thought less likely but cannot be excluded. MRI of the abdomen and pelvis 10/13/2015: Liver: There is a large, heterogeneously enhancing mass within the entire lateral segment of the left hepatic lobe and extending into the medial segment as well. This mass measures approximately 8.2 x 5.8 x 6.3 cm. This is most consistent with neoplasm, perhaps metastatic given the patient's history of colonic carcinoma. No additional hepatic lesions are seen. There is patchy hepatic fatty change throughout the right hepatic lobe. Partial, nonocclusive thrombus within the superior mesenteric vein just cephalad to its 1st branch. Liver biopsy--consistent with colorectal primary. Patient received the fourth cycle chemotherapy on 12/22/2015. She developed profuse diarrhea and presented to the emergency department for dehydration and shortness of breath. She was found to be an RVR atrial fibrillation with significant hypomagnesemia. She was admitted and started on IV hydration and magnesium replacement as well as medical management of atrial fibrillation. The diarrhea however continued for several more days during which she was given supportive care. Following that she developed an episode of ileus which extend her hospital stay. She was eventually discharged to rehabilitation. This morning she underwent an ultrasound of both lower extremities. She was found to have an acute DVT in the right common femoral vein. Treated with apixaban. Underwent left-sided lumpectomy for DCIS. Specimen - partial breast Procedure - excision with wire-guided localization Lymph node sampling ? no lymph nodes present Specimen integrity - single intact specimen Specimen size ? 15 x 9 x 4 cm Specimen laterality ? left Tumor site ? not specified Size (extent) of DCIS ? 0.3 cm in greatest dimension. See comment. 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 Architectural pattern - cribriform Nuclear grade - grade 2 (intermediate) Necrosis ? not identified Margins ? margin uninvolved by ductal carcinoma in situ. The tumor is 2 cm away from the closest anterior and posterior margins Treatment effect - no known presurgical therapy. Lymph nodes ? not submitted Distant metastasis ? not replicable Additional Pathologic Findings ? fibrocystic changes. - Focal changes consistent with previous biopsy site. Previous therapy: 1) FOLFOX x1; FOLFOX with Vectibix x3. 2) Underwent left hepatectomy 04/28/2016. Final pathology reviewed. Positive margin was cauterized during surgery. 3) Xeloda. Started cycle #3 11/27/2016 through 02/2017. Presented 01/03 for OV. Had syncopal episode. Taken to ED. Hydrated and felt better. No laboratory or EKG findings of cardiac event. Current therapy: 1) Infusional 5-fluorouracil with oxaliplatin. Presents for ongoing oncologic management--evaluation for cycle 3. Interim history: Prior to her third cycle of treatment, she developed a cough about 3 days before. On day 1 of treatment after she was hooked up to the pump, she went out to the restroom in the lobby and while there she had palpitations and a feeling of being warm and flushed. Then when she went out the door to get in the car she had laryngeal spasm that triggered bronchospasm. The outside temperature was 13?. Patient was taken by squad to the ED. She was found to be in A. fib, and also was diagnosed with influenza. After using her own MDI, her bronchospasm rapidly improved before the squad got here. Later that evening when she went home she drank some colder water from the tap and had another episode of laryngeal spasm although not as bad. She's had no fever. She continues to have occasional cough but no subjective feeling of wheezing. She's not been having diarrhea but she has some loose stools. Appetite is doing well. No nausea. PMH, medications and allergies as below personally reviewed by me today. Any changes documented in appropriate section. ROS: Constitutional: Denies episodes of fever and night sweats. Neuro: Denies vertigo and dizziness. HEENT: No recent change in voice, vision or hearing (significant b/l hearing loss--stable). Resp: See above. CVS: Denies exertional chest pain, PND, orthopnea. GI: See above. : No dysuria or gross hematuria. Stress incontinence stable. Endo: Denies hot flashes. Denies polyuria and polydipsia. Denies heat and cold intolerance. Musculoskeletal: Denies bone, back, joint and muscular pain. Derm: Denies rash. Denies diffuse pruritis. Heme: No unusual bleeding and/or unexplained bruising. Psych: Normal mood. PHYSICAL EXAM: Vitals: Blood pressure 114/65, pulse 62, temperature 36.7 ?C (98.1 ?F), temperature source Oral, weight 95.3 kg (210 lb). Well-appearing and in no acute distress. EYES: Sclerae are anicteric bilaterally. NECK: Supple. No enlargement of thyroid. LYMPHATIC: There is no palpable cervical, supraclavicular adenopathy. RESPIRATORY: Inspiratory breath sounds are of diminished intensity in all pedersen. Scattered inspiratory wheezes all throughout. CARDIOVASCULAR: Rhythm is regular today. Normal intensity S1/S2. ABDOMEN: The abdomen is nondistended and non-tender. Extremities: Free of edema. SKIN: No jaundice or rash. No petechiae. NEUROLOGIC: foil cutter II-XII are grossly intact. No focal motor weakness. ASSESSMENT/PLAN: (C18.2) Malignant neoplasm of ascending colon (HCC) (primary encounter diagnosis) (C78.7) Liver metastasis (HCC) Assessment: -Patient had completed several months of capecitabine following resection for an isolated metastasis. She tolerated capecitabine only marginally and was on lower doses for the last couple cycles. She had marked difficulty with diarrhea, dehydration and several hospitalizations/ER visits for toxicity. However, lung nodule had been stable. -Recent PD with new liver and progressive lung metastasis. -First cycle was complicated by port line rupture. -By history, she did not have an allergic reaction oxaliplatin. Rather in retrospect she had influenza with viral bronchitis and wheezing just prior to treatment and then laryngeal dysesthesia triggered by cold air causing laryngeal spasm and exacerbation of bronchospasm. Symptoms were relieved quickly with the use of MDI inhaler. -Results of CT scans reviewed in detail. Objective response. -I recommended a tapering course of prednisone for the continued wheezing that she's been having although she doesn't appreciate it. This will also give her some steroid prep for Mondays chemotherapy. We will plan to continue FOLFOX for now. Plan: -Okay for chemotherapy on Sunday. -I wrote out tapering prednisone 30 mg daily for 3 days and 20 mg daily for 3 days then 10 mg daily for 3 days then stop. 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 Plan: -Continue Xarelto. Sujit Vasquez DO Referring Provider: SUJIT VASQUEZ [[id number]] Allergies As of Date: 10/12/2017 Noted Allergy Reaction CORGARD (NADOLOL) 07/21/2015 12 - Shortness of Breath PENN 07/21/2015 12 - Shortness of Breath MORPHINE 07/21/2015 12 - Shortness of Breath Comments: Pt says she can tolerate oxycodone. PENICILLINS 07/21/2015 12 - Shortness of Breath PRAVACHOL (PRAVASTATIN) 07/21/2015 12 - Shortness of Breath SULFITE 07/21/2015 12 - Shortness of Breath Comments: Sulfites in food. Verified by refrigerator tester. ZOCOR (SIMVASTATIN) 07/21/2015 12 - Shortness of Breath Comments: Pt reports allergy to brand Zocor, tolerates generic. Date Reviewed: 10/12/2017 Reviewed by: Macey Clifford - Fully Assessed Reason for Visit: Established Patient [[id number]] Primary Visit Diagnosis:Malignant neoplasm of ascending colon (HCC) [C18.2] Other Visit Diagnoses:Liver metastasis (HCC) [C78.7] Mesenteric vein thrombosis [I81] Order(s):predniSONE (DELTASONE) 10 mg tabletTake 1 tablet twice the day before each chemotherapy treatment and one tablet the evening of chemotherapy.Disp: 30 tabletRfl: 0 potassium chloride (KLOR-CON) 20 mEq packetTake 20 mEq by mouth once daily.Disp: 90 PacketRfl: 3 Prescriptions as of 10/12/2017 Sig: POTASSIUM CHLORIDE 20 MEQ ORA* Take 20 mEq by mouth once wyatt* RIVAROXABAN 15 MG TABLET Take 1 tablet by mouth daily * Patient taking differently: Take by mouth daily with dinn* ONDANSETRON HCL 8 MG TABLET Take 1 tablet by mouth every * LIDOCAINE-PRILOCAINE 2.5 %-2.* Apply 1 application to affect* SODIUM CHLORIDE 0.9% FLUSH Access implanted vascular acc* HEPARIN, PORCINE (PF) 100 UNI* Access implanted vascular acc* LOPERAMIDE 2 MG TABLET Take 2 mg by mouth as needed. SODIUM CHLORIDE 0.9% FLUSH Access implanted vascular acc* HEPARIN LOCK FLUSH (PORCINE) * Access implanted vascular acc* FUROSEMIDE 20 MG TABLET Take 2 tablets by mouth twice* MONTELUKAST 10 MG TABLET Take 1 tablet by mouth daily * MAGNESIUM OXIDE 400 MG TABLET Take 400 mg by mouth twice da* ACETAMINOPHEN 500 MG TABLET Take 1,000 mg by mouth as nee* DIPHENHYDRAMINE 25 MG TABLET Take 50 mg by mouth as needed. ISOSORBIDE MONONITRATE ER 60 * Take 60 mg by mouth once wilman* ASPIRIN 81 MG TABLET,DELAYED * Take 81 mg by mouth once wilman* METOPROLOL TARTRATE 50 MG TAB* Take 50 mg by mouth twice wyatt* LISINOPRIL 10 MG TABLET Take 10 mg by mouth once wilman* OMEPRAZOLE 20 MG CAPSULE,MELODY* Take 20 mg by mouth once wilman* MOMETASONE 220 MCG (60 DOSES)* Inhale 1 Puff as instructed. CHOLECALCIFEROL (VITAMIN D3) * Take 1 tablet by mouth once d* SIMVASTATIN 40 MG TABLET Take 20 mg by mouth daily at * NITROGLYCERIN 0.3 MG SUBLINGU* Dissolve 0.3 mg under the ton* ALBUTEROL SULFATE HFA 90 MCG/* Inhale 2 Puffs as instructed * EPINEPHRINE 0.15 MG/0.15 ML I* by INJECTION(UNSPECIFIED PARE* LORATADINE 10 MG TABLET Take 10 mg by mouth as needed. PREDNISONE 10 MG TABLET Take 1 tablet twice the day b* AZITHROMYCIN 250 MG TABLET Take two (2) tablets by mouth* KETOCONAZOLE 2 % TOPICAL CREAM Apply 1 application to affect* PROMETHAZINE 25 MG TABLET Take 0.5-1 tablets by mouth e* FERREX 150 MG IRON CAPSULE Take 1 capsule by mouth once * CLOTRIMAZOLE-BETAMETHASONE 1 * Apply 1 application to affect* HYDROCORTISONE VALERATE 0.2 %* Apply 1 application to affect* TRIAMCINOLONE ACETONIDE 0.025* Apply 1 application to affect* Medication notes this encounter LIDOCAINE-PRILOCAINE 2.5 %-2.5 % TOPICAL CREAM >> Macey Clifford MA 10/12/2017 2:48 PM >> MACEY CLIFFORD MA Oct 12, 2017 2:48 PM as necessary AZITHROMYCIN 250 MG TABLET >> Macey Clifford MA 10/12/2017 2:47 PM >> MACEY CLIFFORD MA Oct 12, 2017 2:47 PM Completed Problem List As Of Date 10/12/2017 Noted Resolved Malignant neoplasm of ascending colon (HCC) [C1*INVALID FOR* Abnormal mammogram of left breast [R92.8] INVALID FOR* 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] INVALID FOR* Abnormal magnetic resonance imaging of liver [R*INVALID FOR* Liver metastasis (HCC) [C78.7] INVALID FOR* Diabetes (HCC) [E11.9] INVALID FOR* Hearing loss [H91.90] INVALID FOR* Hypertension [I10] INVALID FOR* Hyperlipidemia [E78.5] INVALID FOR* Carotid artery disease (HCC) [I77.9] INVALID FOR* Coronary artery disease [I25.10] INVALID FOR* Asthma [J45.909] INVALID FOR* Sleep apnea [G47.30] INVALID FOR* Arthritis [M19.90] INVALID FOR* Fibromyalgia [M79.7] INVALID FOR* Atrial arrhythmia [I49.8] INVALID FOR* H/O degenerative disc disease [Z87.39] INVALID FOR* Spondylolysis [M43.00] INVALID FOR* Radiculopathy [M54.10] INVALID FOR* Eczema [L30.9] INVALID FOR* Anemia [D64.9] INVALID FOR* 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 Recurrence on CT dated 08/28/2017, when chemotherapy TECHNIQUE: Hepatic arterial, portal venous and early equilibrium phase imaging of the abdomen utilizing IV contrast only (OPTN protocol). Contrast: Other: 150 ml of Omnipaque 300 Oral contrast: None CT Radiation dose: Integrated Dose-length product (DLP) for this visit = 1750 mGy*cm. CT Dose Reduction Employed: Automated exposure control (AEC) COMPARISON: 08/28/2017 RESULT: Hepatic morphology and masses: Postoperative changes of a LEFT hepatic resection. Hepatic steatosis. Hypodense lesion at the hepatic dome measures 3.1 x 2.2 cm (series 6 image 21), previously 3.1 x 3.4 cm. Hepatic vasculature and collaterals: Portal venous system - There is no thrombus in the residual RIGHT hepatic vein. Spleen: Normal in size. No focal splenic lesion. Biliary: No bile duct dilation. Gallbladder is absent. Pancreas: No mass or duct dilation. Adrenals: No mass. Kidneys: No focal nodule GI tract: Visualized bowel is unremarkable. Lymph nodes: No abdominal adenopathy Mesentery/Peritoneum: No ascites Bones/Soft Tissues: Degenerative changes. Lower thorax: Stable calcified granuloma at RIGHT lung base. IMPRESSION: STABLE TO MILDLY DECREASED SIZE OF THE HEPATIC RECURRENCE. Aerologist: [facility] Transcribe Date/Time: Oct 10 2017 1:48P Dictated by : SHWETHA LIVINGSTON MD This examination was interpreted and the report reviewed and electronically signed by: SHWETHA LIVINGSTON MD on Oct 10 2017 2:10PM EST [id number] CT CHEST W IVCON Observed: 10/10/2017 Status: F Source: [place] 11:56 AM [facility] REPOSITORY * * *Final Report* * * DATE OF EXAM: Oct 10 2017 11:56AM [facility] 0539 - CT CHEST W IVCON / PROCEDURE REASON: multiple diagnoses * * * * Physician Interpretation * * * * EXAMINATION: CHEST CT WITH CONTRAST Indication: Malignant neoplasm of ascending colon Secondary malignant neoplasm of liver and intrahepatic bile duct Secondary malignant neoplasm of unspecified lung Technique: Spiral CT acquisition of the chest from the thoracic inlet to the upper abdomen following IV contrast. M: [id number] Contrast: 150 mL Omnipaque [address] Dose-Length Product: 1750 mGy*cm CT Dose Reduction Employed: Automated exposure control (AEC) Comparison: CT chest on 08/28/2017 RESULT: Limitations: None. Lines, tubes, and devices: None. Lung parenchyma and pleura: The central airways are patent. The anterior left upper lobe nodule appears basically stable measuring 6 mm. Tiny nodules in the right lung are also stable, series 13 images 126 and 155. No new nodules identified. Again there is a benign appearing calcified nodule in the right lower lobe, series 13 image 126. The lungs are clear of consolidative opacities. No pleural effusions or pneumonitis. Thoracic inlet, heart, and mediastinum: Stable thyroid gland with tiny nodules. No supraclavicular or axillary lymphadenopathy. Stable 1.5 cm right hilar lymph node with calcification. No progressive lymphadenopathy in the mediastinum and hilar region. The thoracic aorta, central pulmonary arteries and cardiac chambers have been unchanged. No pericardial effusion/thickening. Bones and soft tissues: Unchanged soft tissue density in the left breast with surgical clips. The spine shows degenerative changes. Status post median sternotomy and CABG. Upper abdomen: A dedicated CT liver was performed concurrently and has been reported separately. IMPRESSION: Basically stable left upper lobe pulmonary nodule. No new or enlarging nodules identified. No progressive lymphadenopathy in the chest. Aerologist: [facility] Transcribe Date/Time: Oct 10 2017 2:32P Dictated by : PATEL BENNETT MD This examination was interpreted and the report reviewed and electronically signed by: PATEL BENNETT MD on Oct 10 2017 2:50PM EST [id number] PROGRESS Observed: 10/10/2017 Status: COMPLETED Source: [place] 11:54 AM [facility] REPOSITORY O ID: [id number] Author: Mignon Quiñonez Ct Service: (none) Author Type: (none) Type: Progress Notes Filed: 10/10/2017 11:55 AM Note Text: Radiology Service Progress Note PATIENT NAME: Quyen Coker DATE OF SERVICE: October 10, 2017 TIME: 11:54 AM PATIENT IDENTITY VERIFICATION COMPLETED USING TWO (2) METHODS: Patient confirmed name verbally and Date of . PATIENT GENDER DATA: Female. status: : No status: NO. PATIENT RELEVANT IMPLANT DATA REVIEWED: Yes CONTRAST INDUCED NEPHROPATHY RISK FACTORS: Patient age > 60 years CREATININE: Creatinine Date Value Ref Range Status 10/10/2017 1.20 0.6 - 1.2 mg/dL Final 09/28/2017 1.40 (H) 0.6 - 1.2 mg/dL Final 09/14/2017 1.50 (H) 0.6 - 1.2 mg/dL Final eGFR-All Other Races Date Value Ref Range Status 10/10/2017 44 . Final Comment: eGFR (Estimated GFR) Units of measure: mL/min/1.73 meters squared eGFR is derived from the reexpressed MDRD Study equation using the following parameters: serum creatinine, age, gender and race. The creatinine assay has been calibrated to be traceable to IDMS. An eGFR <60 mL/min/1.73m2 for >3 months is consistent with chronic kidney disease. Refer to KDOQI guidelines for clinical interpretation. In patients with unstable renal function, e.g. those with acute kidney injury, the eGFR may not accurately reflect actual GFR. eGFR- Date Value Ref Range Status 10/10/2017 53 Final P.O.C.T. RESULTS: POC done: Yes, See Lab Tab October 10, 2017 RADIOLOGIST NOTIFIED?: Yes IV Hydration: Normal Saline solution 500 ml over 1 hours. ALLERGIES: Reviewed and unchanged CONTRAST ALLERGY: NO. PERIPHERAL IV ACCESS: power port accessed by hemoc RADIOLOGY DEPARTMENT: CT; Exam(s) Completed: Chest and Liver SIGNED BY: Mignon Quiñonez Ct October 10, 2017 11:54 AM HEPATIC FUNCTN PANEL Collected: 10/10/2017 Status: F Source: [place] 10:51 AM [facility] REPOSITORY TYPE CODE TESTS RESULT OUT OF REFERENCE UNITS RANGE LAB ALB 3.9-4.9 g/dL Low Albumin 3.7 LAB TBIL 0.2-1.3 mg/dL Bilirubin, Total 0.6 LAB CBIL <0.2 mg/dL Bilirubin,Conjuga <0.2 maikel LAB ALKP 32-117 U/L Alkaline High Phosphatase 132 LAB AST 13-35 U/L AST 24 LAB ALT 7-38 U/L ALT 24 LAB TP 6.3-8.0 g/dL Protein, Total 6.6 Performed By: #### HFP, CEA #### [facility] [address] [place], [place] [address] CEA Collected: 10/10/2017 Status: F Source: [place] 10:51 AM [facility] REPOSITORY TYPE CODE TESTS RESULT OUT OF RANGE REFERENCE UNITS LAB CEA 0.0-2.9 ng/mL High CEA 6.4 Result Comment: Test analyzed by the Nicholas DxI method. Performed By: #### HFP, CEA #### [facility] [address] [place] [id number] KELLEN ABS GR + CBC Collected: 10/10/2017 Status: F Source: [place] 10:50 AM [facility] REPOSITORY TYPE CODE TESTS RESULT OUT OF REFERENCE UNITS RANGE LAB WWBC 3.70-11.00 k/uL [place] WBC 6.96 LAB WRBC 3.90-5.20 m/uL Low [place] RBC 3.86 LAB WHGB 11.5-15.5 g/dL [place] Hemoglobin 12.2 LAB WHCT 36.0-46.0 % [place] Hematocrit 37.9 LAB WMCV 80.0-100.0 fL [place] MCV 98.2 LAB WMCH 26.0-34.0 pg [place] MCH 31.6 LAB WMCHC 30.5-36.0 g/dL [place] MCHC 32.2 LAB WRDW 11.5-15.0 % [place] RDW 14.5 LAB WPLT 150-400 k/uL [place] Platelet Cnt 160 LAB WMPV 9.0-12.7 fL [place] MPV 9.3 Result Comment: Test performed at: [address] [place] [address]. LAB ABGRAN 1.45-7.50 k/uL Absol Gran 4.00 Count BMP PLUS FHC Collected: 10/10/2017 Status: F Source: [place] 10:50 AM [facility] REPOSITORY TYPE CODE TESTS RESULT OUT OF REFERENCE UNITS RANGE LAB NA 128-145 mmol/L Sodium 140 LAB K 3.6-5.1 mmol/L Potassium 4.1 LAB CL 98-108 mmol/L Chloride 100 LAB CO2 18-33 mmol/L CO2 29 LAB CRET 0.6-1.2 mg/dL Creatinine 1.20 LAB BUN 7-22 mg/dL BUN 22 LAB GLU 73-118 mg/dL Glucose High 131 LAB CA 8.0-10.3 mg/dL Calcium, Total 9.2 LAB MG 1.6-2.3 mg/dL Magnesium 1.8 LAB AGAP 9-18 mmol/L Anion Gap 11 LAB GFRAA eGFR- 53 Amer. LAB GFRNAA . eGFR-All Other Races 44 Result Comment: eGFR (Estimated GFR) Units of measure: mL/min/1.73 meters squared eGFR is derived from the reexpressed MDRD Study equation using the following parameters: serum creatinine, age, gender and race. The creatinine assay has been calibrated to be traceable to IDMS. An eGFR <60 mL/min/1.73m2 for >3 months is consistent with chronic kidney disease. Refer to KDOQI guidelines for clinical interpretation. In patients with unstable renal function, e.g. those with acute kidney injury, the eGFR may not accurately reflect actual GFR. 12 LEAD ELECTROCARDIOGRAM Observed: 10/02/2017 Status: F Source: HIMROD 9:47 AM [facility] Cardiovascular Services [address] [place] [address] 12 Lead EKG 10/01/17 1523 MR#: [id number] Acct: [id number] Name: QUYEN COKER Rep #: [id number] : 1940 77 From: Sujit Maya MD Attending Dr: Status: DEP ER Ordering Dr: Helen Guillory Date: 10/01/17 Location: ED Sex: F C Admitted: Test Reason : SOB Blood Pressure : / mmHG Vent. Rate : 083 BPM Atrial Rate : 086 BPM P-R Int : 000 ms QRS Dur : 082 ms QT Int : 380 ms P-R-T Axes : 000 -40 047 degrees QTc Int : 446 ms Atrial fibrillation Left axis deviation Nonspecific ST abnormality Poor R wave progression Abnormal ECG Confirmed by SELINA CARVAJAL, SUJIT ([id number]), news videotape editor NELL MCCOY ([id number]) on 10/02/2017 9:47:04 AM Referred By: MALIK Confirmed By:SUJIT MAYA MD 10/02/17 0947 Date Sujit Maya MD CC: Helen Guillory; Alvarez Mccoy MD Signed EMERGENCY DEPARTMENT Observed: 10/01/2017 Status: F Source: HIMROD SUMMARY 9:04 PM [facility] REPOSITORY [facility] Medical Records Department [address] [place] [address] Emergency Department Summary 10/01/17 1751 MR#: [id number] Acct: [id number] Name: QUYEN COKER Rep #: [id number] : 1940 77 From: Robin James MD PCP: Alvarez Mccoy MD Status: DEP ER - ER Visit Summary Date of Service: 10/01/17 Addendum: Patient was checked out to me by Dr. Guillory with labs pending. CBC has returned and her white count is 1.6 with 68.8% segmented neutrophils giving an absolute neutrophil count of 1088. H AND H are 11.2 and 35.0, platelets are 86. Chem- 7 is marked for potassium at 3.4, calcium 8.1, glucose of 228, creatinine 1.4. Troponin is negative. Chest x-ray shows no acute disease. She is positive for influenza A. Emergency department course: Patient's symptoms have resolved and she is resting comfortably. She was given a dose of Tamiflu p.o. Treatment plan: The patient was discussed with Dr. Vasquez. She will be discharged on Tamiflu instructed to follow-up with his office for further evaluation and treatment of the allergic reaction. Return to the emergency department for any worsening symptoms. Disposition: To home in improved and stable condition. Impression: 1. Allergic reaction. 2. Influenza A. 3. Pancytopenia. 4. Colon cancer with metastases on chemotherapy. This note was generated with DataCertation software. It may contain incorrect words, spelling, and punctuation that were not noted in review of the chart prior to signing ED Disposition - Plan for ED Patient: Chief Complaint: Allergic Reaction Instructions: ED Allergic Reaction General Other, ED Flu Prescriptions: DiphenhydrAMINE [Benadryl] 25 mg PO TID PRN PRN #20 capsule PRN Reason: Allergies Prednisone [Deltasone] 40 mg PO DAILY #8 tablet Oseltamivir Phosphate [Tamiflu] 75 mg PO BID #10 capsule Referrals: Sujit Vasquez DO [STAFF PHYSICIAN] - 3-5 Days What to do if you have Problems For any increased pain, shortness of breath, bleeding, nausea or vomiting, chest pain, or any unexpected problems, contact your Primary Care Provider. Call [facility] ([phone]) or report to the closest Emergency Room. Call 911 if necessary. 10/01/172103 <Electronically signed by Robin James MD> Date Robin James MD Cosigner Signature (If Indicated): Date CC: Alvarez Mccoy MD DISCHARGE INSTRUCTION Observed: 10/01/2017 Status: F Source: HIMROD 4:39 PM [facility] REPOSITORY [facility] Medical Records Department [address] [place] [address] Discharge Instruction 10/01/171636 MR#: [id number] Acct: [id number] Name: QUYEN COKER Rep #: [id number] : 1940 77 From: Helen Guillory PCP: Alvarez Mccoy MD Status: REG ER ED Disposition - Plan for ED Patient: Chief Complaint: Allergic Reaction Instructions: ED Allergic Reaction General Other Prescriptions: DiphenhydrAMINE [Benadryl] 25 mg PO TID PRN PRN #20 capsule PRN Reason: Allergies Prednisone [Deltasone] 40 mg PO DAILY #8 tablet Referrals: Sujit Vasquez DO [STAFF PHYSICIAN] - What to do if you have Problems For any increased pain, shortness of breath, bleeding, nausea or vomiting, chest pain, or any unexpected problems, contact your Primary Care Provider. Call [facility] ([phone]) or report to the closest Emergency Room. Call 911 if necessary. 10/01/17 1639 <Electronically signed by Helen Guillory > Date Helen Guillory Cosigner Signature (If Indicated): Date CC: Alvarez Mccoy MD EMERGENCY DEPARTMENT Observed: 10/01/2017 Status: F Source: HIMROD SUMMARY 4:37 PM [facility] REPOSITORY [facility] Medical Records Department [address] [place] [address] Emergency Department Summary 10/01/17 1631 MR#: [id number] Acct: [id number] Name: QUYEN COKER Rep #: [id number] : 1940 77 From: Helen Guillory PCP: Alvarez Mccoy MD Status: REG ER - ER Visit Summary Date of Service: 10/01/17 Chief Complaint: [Allergic reaction] History of Present Illness: The patient is a 77 F [who presents the emergency department with an allergic reaction. She was in oncology getting infusion of María uracil and 15 minutes after infusion started she got very short of breath started wheezing and felt like her throat was closing. She took her inhaler and by the time she arrived in the emergency department she was feeling somewhat better but if it did feel some heaviness in her chest and difficulty breathing. She had also gotten an infusion of oxaliplatin just prior to this. She has had anaphylaxis in the past requiring epinephrine. She has a history of coronary artery disease and status post CABG with stents. She has atrial fibrillation and is on Xarelto. She has metastatic colon cancer with metastases to the liver and lungs.] Physical Examination: [] Blood pressure 93 systolic pulse ox 92% on room air WN WD NAD PERRL EOMI MMM NECK supple and nontender, no masses RRR no murmur rub or gallop, no peripheral edema, symmetric radial pulses CTAB mild tachypnea, port right chest ABDOMEN is soft and nontender, normal bowel sounds, no distension, no rebound or guarding SKIN is warm and dry no rashes Alert and Oriented x3, CN II-XII in tact, no motor or sensory deficits, gait normal No lymphadenopathy Test Results: [] Emergency Department Course and Treatment: [EKG is atrial fibrillation at a rate of 83 there is no acute ischemic changes. Chest x-ray was unremarkable. She was given racemic epinephrine as well as Solu-Medrol and Benadryl. She was feeling improved but still had some slight heaviness in her chest. At that time I did send screening blood work and a flu swab that she said she has had a cough and runny nose for the past few days. Dr. Preston did evaluate her during this episode so they are aware of her reaction. I do anticipate that she will be discharged home. She will be reevaluated by oncoming physician.] Treatment Plan: [] Disposition: [Pending lab evaluation likely discharge] Impression: [Allergic reaction] This note was generated with DataCertation software. It may contain incorrect words, spelling, and punctuation that were not noted in review of the chart prior to signing ED Disposition - Plan for ED Patient: Chief Complaint: Allergic Reaction Referrals: Alvarez Mccoy MD [Primary Care Provider] - What to do if you have Problems For any increased pain, shortness of breath, bleeding, nausea or vomiting, chest pain, or any unexpected problems, contact your Primary Care Provider. Call [facility] ([phone]) or report to the closest Emergency Room. Call 911 if necessary. 10/01/17 1637 <Electronically signed by Helen Guillory > Date Helen Guillory Cosigner Signature (If Indicated): Date CC: Alvarez Mccoy MD Observed: 10/01/2017 Status: F Source: HIMROD INFLUENZA A+B (RAPID 4:22 PM [facility]) REPOSITORY FLU A/B Rapid Negative test results should be confirmed by culture. Order Rapid Viral Culture for Influenzae A+B ([id number]) if clinically indicated. CALLED TO LOLA 10/01/17@7678 BY [facility] [employer] Influenza Ag, Direct POSITIVE for the presence of INFLUENZA A Antigen only ORGANISM 1: INFLUENZAE A Performed By: #### M101.0101 #### [facility] [address] [place], [address] BASIC METABOLIC Collected: 10/01/2017 Status: F Source: KELLEN PROFILE ([facility]) 4:20 PM [facility] REPOSITORY Order Comment: 'TROP' Serial specimen #1, #2, #3, or #4: 1 TYPE CODE TESTS RESULT OUT OF RANGE REFERENCE UNITS LAB L501.0100 74-106 mg/dL High GLU 228 Result Comment: Glucose result greater than or equal to 200 mg/dL suggests DIABETES MELLITUS per A.D.A. criteria. LAB L501.1000 7-18 mg/dL Normal BUN 15 LAB L501.1100 0.55-1.02 mg/dL High CREAT,SERUM 1.40 Result Comment: The validity of the calculated GFR AND GFRAA in patients over 70 years has not been determined. Clinical correlation is essential. LAB L501.1110 >60 mL/min Low EST GFR 39 Result Comment: Non- GFR Calc LAB L501.1115 >60 mL/min Low EST GFR - AA 47 Result Comment: GFR Calc LAB L501.1255 ml/min Normal Estimated CRCL 27.46 LAB L501.1300 10-20 RATIO Normal BUN/CRE 10.7 LAB L501.2200 8.5-10 mg/dL Low .1 CA 8.1 LAB L501.5300 136-14 mmol/L Normal 5 NA 137 LAB L501.5600 3.5-5. mmol/L Low 1 K 3.4 LAB L501.5900 98-107 mmol/L Normal CL 103 LAB L501.6100 21.0-3 mmol/L Normal 2.0 CO2 25.0 LAB L501.6200 5-15 Normal GAP 9 Performed By: #### L500.2500, L501.4010 #### [facility] [address] [place], [address] TROPONIN-I Collected: 10/01/2017 Status: F Source: KELLEN 4:20 PM [facility] REPOSITORY Order Comment: 'TROP' Serial specimen #1, #2, #3, or #4: 1 TYPE CODE TESTS RESULT OUT OF RANGE REFERENCE UNITS LAB L501.4010 <0.06 ng/mL Normal < 0.02 TROPONIN-I Result Comment: TROPONIN-I EXPECTED VALUES <0.05 NEGATIVE 0.06 - 0.59 AT RISK OF PR > OR = 0.60 SUGGEST PR Performed By: #### L500.2500, L501.4010 #### [facility] [place], [address] CBC W/DIFF, AUTOMATED Collected: 10/01/2017 Status: C Source: HIMROD 4:20 PM [facility] REPOSITORY TYPE CODE TESTS RESULT OUT OF RANGE REFERENCE UNITS LAB L100.1000 4.4-11.0 K/mm3 Low WBC 1.6 LAB L100.1200 4.2-5.4 M/mm3 Low RBC 3.60 LAB L100.1300 12.0-15.0 g/dl Low HGB 11.2 LAB L100.1400 37-47 % Low HCT 35.0 LAB L100.1500 81-99 fL Normal MCV 97.2 LAB L100.1600 27.0-32.0 pg Normal MCH 31.1 LAB L100.1700 32-36 g/gl Normal MCHC 32.0 LAB L100.1810 11.6-14.6 % Normal RDW CV 14.5 LAB L100.1820 35.1-43.9 fl High RDW SD 51.3 LAB L100.1900 150-450 K/mm3 Low PLT 86 LAB L100.2000 6.2-12.0 fl Normal MPV 9.8 LAB L100.2100 47-70 % Normal NEUT% 68.8 LAB L100.2200 19-41 % Normal LY% 25.6 LAB L100.2300 0-10 % Normal MONO% 3.8 LAB L100.2400 0-5 % Normal EO% 0.6 LAB L100.2500 0-1 % Normal BASO% 0.6 LAB L100.2550 0.0-0.9 % Normal IM GRAN % 0.600 Result Comment: IG% - Immature Granulocytes (promyelocytes, myelocytes and metamyelocytes) > 1% indicates that a LEFT SHIFT is Present. LAB L100.2620 2.0-7.7 X10 3/uL Low Absolute Neut 1.1 LAB L100.2720 0.83-4.51 X10 3/ul Low Absolute Lymph 0.40 LAB L100.4500 SMEAR Normal COMMENT Result Comment: LYMPHOPENIA NOTED LAB L100.9900 Normal Reviewed PATH REV Result Comment: Leukopenia, neutropenia and Thrombocytopenia. Clinical correlation necessary. Norberto Hernandez M.D. 10/02/17 AMENDED REPORT 10/02/17 1452 PATH REV previously reported as: December Performed By: #### L100.0100 #### [facility] [address] [place], [address] CHEST 1 VIEW Observed: 10/01/2017 Status: F Source: HIMROD (PORTABLE) 2:47 PM [facility] REPOSITORY [facility] Imaging Services [address] [place] [address] Chest 1 View (Portable) MR#: [id number] Acct: [id number] Name: QUYEN COKER Rep #: [id number] : 1940 F 77 From: Wang Holt MD PCP: Alvarez Mccoy MD Status: REG ER Study: Chest 1 View (Portable) Date of Exam: 10/01/17 Exam# [id number] Ordering Dr: Helen Guillory STUDY: X-RAY CHEST REASON FOR EXAM: Female, 77 years old. Sagittal onset of shortness of breath during chemotherapy. TECHNIQUE: Single AP portable view of the chest. COMPARISON: Comparison is made with prior study dated January 03, 2017. FINDINGS: A right-sided portacatheter is seen. The tip is in the proximal portion of the superior vena cava. Hyperinflation. Scattered calcified granulomas. No acute abnormality is seen. There is no demonstrated pleural abnormality. Sternal cerclage wires and vascular clips are present from a prior sternotomy and coronary artery bypass graft procedure (CABG). Normal mediastinum and vivek. Normal visualized pulmonary arteries. There is atherosclerotic calcification of the aortic arch with tortuosity. There are diffuse degenerative changes of the visualized thoracic spine. Normal visualized ribs, clavicles, and shoulders. There is no demonstrated abnormality of the visualized soft tissue structures of the upper abdomen. RAD/Chest 1 View (Portable) IMPRESSION: Hyperinflation. No acute abnormality is seen. Electronically Signed: Wang Holt MD at 15:19 EST Tel [phone], Service support , CC: Helen Guillory; Alvarez Mccoy MD Aerologist: Signed PROGRESS Observed: 09/28/2017 Status: COMPLETED Source: OLANTA 10:32 AM [facility] REPOSITORY HNO ID: [id number] Author: Sujit Vasquez Service: (none) Author Type: Physician Type: Progress Notes Filed: 09/28/2017 10:57 AM Note Text: Diagnosis: 1) Metastatic colon cancer. KRAS - No variant detected [Reference sequence: (NM_[id number])]. NRAS - No variant detected [Reference sequence: (NM_[id number])]. BRAF - No variant detected [Reference sequence: (NM_[id number])]. 2) DCIS. 3) IMV thrombus. 4) DVT. HPI: The patient is a 77 yo female with a PMH significant for hyperlipidemia, HTN, CAD (PR, CABG x2 2011; stent x1 2013), PVD (carotid artery stenosis s/p CEA left side 2012), sleep apnea (uses CPAP), arthritis (chronic lower back and from lower thoracic area to the neck pain). She developed rectal bleeding in March and underwent evaluation with EGD. Evidently that study was normal. Next underwent colonoscopy and was observed to have a tumor in the cecum. Had normal colonoscopy about 2 years prior. Underwent right hemicolectomy 07/28/2015. 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 Through muscularis propria into subserosal adipose tissue, but not extending to the serosal surface. All margins negative. No lymphovascular invasion. No perineural invasion. No tumor deposits. None of 14 nodes positive. No evidence MSI by IHC. Had screening mammogram 08/2015. Abnormality left breast. Dx mammo and US 09/06/2015. 6.5 x 7.9 mm nodular density with focal calcifications in fthe slightly upper lateral portion of the left breast. Underwent stereotactic core biopsy 09/15/2015. DCIS, cribriform and solid, grade 2, single cell necrosis; no invasive carcinoma. MRI of the breast 10/11/2015: Longitudinally oriented area of mild enhancement in the central left breast thought to be due to postbiopsy hemorrhage/inflammation. Tumor along this entire length is thought less likely but cannot be excluded. MRI of the abdomen and pelvis 10/13/2015: Liver: There is a large, heterogeneously enhancing mass within the entire lateral segment of the left hepatic lobe and extending into the medial segment as well. This mass measures approximately 8.2 x 5.8 x 6.3 cm. This is most consistent with neoplasm, perhaps metastatic given the patient's history of colonic carcinoma. No additional hepatic lesions are seen. There is patchy hepatic fatty change throughout the right hepatic lobe. Partial, nonocclusive thrombus within the superior mesenteric vein just cephalad to its 1st branch. Liver biopsy--consistent with colorectal primary. Patient received the fourth cycle chemotherapy on 12/22/2015. She developed profuse diarrhea and presented to the emergency department for dehydration and shortness of breath. She was found to be an RVR atrial fibrillation with significant hypomagnesemia. She was admitted and started on IV hydration and magnesium replacement as well as medical management of atrial fibrillation. The diarrhea however continued for several more days during which she was given supportive care. Following that she developed an episode of ileus which extend her hospital stay. She was eventually discharged to rehabilitation. This morning she underwent an ultrasound of both lower extremities. She was found to have an acute DVT in the right common femoral vein. Treated with apixaban. Underwent left-sided lumpectomy for DCIS. Specimen - partial breast Procedure - excision with wire-guided localization Lymph node sampling ? no lymph nodes present Specimen integrity - single intact specimen Specimen size ? 15 x 9 x 4 cm Specimen laterality ? left Tumor site ? not specified Size (extent) of DCIS ? 0.3 cm in greatest dimension. See comment. 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 Architectural pattern - cribriform Nuclear grade - grade 2 (intermediate) Necrosis ? not identified Margins ? margin uninvolved by ductal carcinoma in situ. The tumor is 2 cm away from the closest anterior and posterior margins Treatment effect - no known presurgical therapy. Lymph nodes ? not submitted Distant metastasis ? not replicable Additional Pathologic Findings ? fibrocystic changes. - Focal changes consistent with previous biopsy site. Previous therapy: 1) FOLFOX x1; FOLFOX with Vectibix x3. 2) Underwent left hepatectomy 04/28/2016. Final pathology reviewed. Positive margin was cauterized during surgery. 3) Xeloda. Started cycle #3 11/27/2016 through 02/2017. Presented 01/03 for OV. Had syncopal episode. Taken to ED. Hydrated and felt better. No laboratory or EKG findings of cardiac event. Current therapy: 1) Infusional 5-fluorouracil with oxaliplatin. Presents for ongoing oncologic management--evaluation for cycle 3. Interim history: She had 1 episode of vomiting this past cycle. She also has some mild intermittent nausea and has been afraid to take antiemetic therapy because she is afraid to get acclimated to it and I will work which she gets sicker. She did have some burning of the tongue tip and sides of the tongue but no open mouth sores. Those occur the first week after treatment. Her weight is stable. Her bowels are unchanged. No signs of GI bleeding. No episodes of jaundice or abdominal pain. Neuropathy persisted longer this cycle and even yesterday she had some cold induced neuropathy of the hands. No difficulty or change in balance. No rash. She has mild fatigue. No unusual bleeding or unexplained bruising. PMH, medications and allergies as below personally reviewed by me today. Any changes documented in appropriate section. ROS: Constitutional: Denies episodes of fever and night sweats. Neuro: Denies vertigo and dizziness. HEENT: No recent change in voice, vision or hearing (significant b/l hearing loss--stable). Resp: No cough, wheezing or sputum production. No shortness of breath at rest or with walking. CVS: Denies exertional chest pain, PND, orthopnea. GI: See above. : No dysuria or gross hematuria. Stress incontinence stable. Endo: Denies hot flashes. Denies polyuria and polydipsia. Denies heat and cold intolerance. Musculoskeletal: Denies bone, back, joint and muscular pain. Derm: Denies rash. Denies diffuse pruritis. Heme: See above. Psych: Normal mood. PHYSICAL EXAM: Vitals: Blood pressure 134/66, pulse 64, temperature 37 ?C (98.6 ?F), temperature source Oral, weight 95.9 kg (211 lb 8 oz). Well-appearing and in no acute distress. EYES: Sclerae are anicteric bilaterally. NECK: Supple. No enlargement of thyroid. LYMPHATIC: There is no palpable cervical, supraclavicular adenopathy. RESPIRATORY: Inspiratory breath sounds are of normal intensity in all pedersen. No rales, wheezes or rhonchi. CARDIOVASCULAR: Rhythm is regular today. Normal intensity S1/S2. ABDOMEN: The abdomen is nondistended and non-tender. Extremities: Free of edema. SKIN: No jaundice or rash. No petechiae. NEUROLOGIC: foil cutter II-XII are grossly intact. No focal motor weakness. ASSESSMENT/PLAN: (C18.2) Malignant neoplasm of ascending colon (HCC) (primary encounter diagnosis) (C78.7) Liver metastasis (HCC) Assessment: -Patient had completed several months of capecitabine following resection for an isolated metastasis. She tolerated capecitabine only marginally and was on lower doses for the last couple cycles. She had marked difficulty with diarrhea, dehydration and several hospitalizations/ER visits for toxicity. However, lung nodule had been stable. -Recent PD with new liver and progressive lung metastasis. -Symptomatically tolerating chemotherapy very well. First cycle was complicated by port line rupture. Plan: -CT following this cycle. -Monitor CEA. -We can consider delaying cycle 4 week or 2 in order to get needed dental work done. 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 Plan: -Continue Xarelto. Sujit Vasquez DO HEPATIC FUNCTN PANEL Collected: 09/28/2017 Status: F Source: OL[place] 10:14 AM [facility] REPOSITORY TYPE CODE TESTS RESULT OUT OF REFERENCE UNITS RANGE LAB ALB 3.9-4.9 g/dL Low Albumin 3.8 LAB TBIL 0.2-1.3 mg/dL Bilirubin, Total 0.5 LAB CBIL <0.2 mg/dL Bilirubin,Conjuga <0.2 maikel LAB ALKP 32-117 U/L Alkaline High Phosphatase 145 LAB AST 13-35 U/L AST 24 LAB ALT 7-38 U/L ALT 22 LAB TP 6.3-8.0 g/dL Protein, Total 6.8 Performed By: #### HFP, CEA #### [facility] [address] [place], [place] [address] CEA Collected: 09/28/2017 Status: F Source: [place] 10:14 AM [facility] REPOSITORY TYPE CODE TESTS RESULT OUT OF RANGE REFERENCE UNITS LAB CEA 0.0-2.9 ng/mL High CEA 6.3 Result Comment: Test analyzed by the Nicholas DxI method. Performed By: #### HFP, CEA #### [facility] [address] [place], [place] [address] KELLEN ABS GR + CBC Collected: 09/28/2017 Status: F Source: OL[place] 10:13 AM [facility] REPOSITORY TYPE CODE TESTS RESULT OUT OF REFERENCE UNITS RANGE LAB WWBC 3.70-11.00 k/uL Kellen WBC 5.44 LAB WRBC 3.90-5.20 m/uL Low Kellen RBC 3.80 LAB WHGB 11.5-15.5 g/dL [place] Hemoglobin 12.0 LAB WHCT 36.0-46.0 % Kellen Hematocrit 37.2 LAB WMCV 80.0-100.0 fL Kellen MCV 97.9 LAB WMCH 26.0-34.0 pg [place] MCH 31.6 LAB WMCHC 30.5-36.0 g/dL Kellen MCHC 32.3 LAB WRDW 11.5-15.0 % [place] RDW 14.3 LAB WPLT 150-400 k/uL Low Kellen Platelet Cnt 148 LAB WMPV 9.0-12.7 fL [place] MPV 9.7 Result Comment: Test performed at: [address] [place] [address]. LAB ABGRAN 1.45-7.50 k/uL Absol Gran 2.99 Count BMP PLUS FHC Collected: 09/28/2017 Status: F Source: [place] 10:13 AM [facility] REPOSITORY TYPE CODE TESTS RESULT OUT OF REFERENCE UNITS RANGE LAB NA 128-145 mmol/L Sodium 141 LAB K 3.6-5.1 mmol/L Low Potassium 3.5 LAB CL 98-108 mmol/L Chloride 99 LAB CO2 18-33 mmol/L CO2 29 LAB CRET 0.6-1.2 mg/dL High Creatinine 1.40 LAB BUN 7-22 mg/dL BUN High 23 LAB GLU 73-118 mg/dL Glucose High 178 LAB CA 8.0-10.3 mg/dL Calcium, Total 9.7 LAB MG 1.6-2.3 mg/dL Magnesium 1.8 LAB AGAP 9-18 mmol/L Anion Gap 13 LAB GFRAA eGFR- 44 Amer. LAB GFRNAA . eGFR-All Other Races 37 Result Comment: eGFR (Estimated GFR) Units of measure: mL/min/1.73 meters squared eGFR is derived from the reexpressed MDRD Study equation using the following parameters: serum creatinine, age, gender and race. The creatinine assay has been calibrated to be traceable to IDMS. An eGFR <60 mL/min/1.73m2 for >3 months is consistent with chronic kidney disease. Refer to KDOQI guidelines for clinical interpretation. In patients with unstable renal function, e.g. those with acute kidney injury, the eGFR may not accurately reflect actual GFR. CNOVSP Observed: 09/28/2017 Status: COMPLETED Source: [place] 10:00 AM [facility] REPOSITORY Visit (SP) Office ([place]) QUYEN COKER ([id number]) 1940 F CHT Date Time Provider Department 09/28/17 10:00 AM SUJIT VASQUEZ During your visit today, we recorded the following information about you: Temperature Pulse Blood pressure Weight 98.6 degrees 64/minute 134/66 95.9 kg Sujit Vasquez DO 09/28/2017 10:57 AM Signed Diagnosis: 1) Metastatic colon cancer. KRAS - No variant detected [Reference sequence: (NM_[id number])]. NRAS - No variant detected [Reference sequence: ([id number])]. BRAF - No variant detected [Reference sequence: (NM_[id number])]. 2) DCIS. 3) IMV thrombus. 4) DVT. HPI: The patient is a 77 yo female with a PMH significant for hyperlipidemia, HTN, CAD (PR, CABG x2 2011; stent x1 2013), PVD (carotid artery stenosis s/p CEA left side 2012), sleep apnea (uses CPAP), arthritis (chronic lower back and from lower thoracic area to the neck pain). She developed rectal bleeding in March and underwent evaluation with EGD. Evidently that study was normal. Next underwent colonoscopy and was observed to have a tumor in the cecum. Had normal colonoscopy about 2 years prior. Underwent right hemicolectomy 07/28/2015. 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 Through muscularis propria into subserosal adipose tissue, but not extending to the serosal surface. All margins negative. No lymphovascular invasion. No perineural invasion. No tumor deposits. None of 14 nodes positive. No evidence MSI by IHC. Had screening mammogram 08/2015. Abnormality left breast. Dx mammo and US 09/06/2015. 6.5 x 7.9 mm nodular density with focal calcifications in fthe slightly upper lateral portion of the left breast. Underwent stereotactic core biopsy 09/15/2015. DCIS, cribriform and solid, grade 2, single cell necrosis; no invasive carcinoma. MRI of the breast 10/11/2015: Longitudinally oriented area of mild enhancement in the central left breast thought to be due to postbiopsy hemorrhage/inflammation. Tumor along this entire length is thought less likely but cannot be excluded. MRI of the abdomen and pelvis 10/13/2015: Liver: There is a large, heterogeneously enhancing mass within the entire lateral segment of the left hepatic lobe and extending into the medial segment as well. This mass measures approximately 8.2 x 5.8 x 6.3 cm. This is most consistent with neoplasm, perhaps metastatic given the patient's history of colonic carcinoma. No additional hepatic lesions are seen. There is patchy hepatic fatty change throughout the right hepatic lobe. Partial, nonocclusive thrombus within the superior mesenteric vein just cephalad to its 1st branch. Liver biopsy--consistent with colorectal primary. Patient received the fourth cycle chemotherapy on 12/22/2015. She developed profuse diarrhea and presented to the emergency department for dehydration and shortness of breath. She was found to be an RVR atrial fibrillation with significant hypomagnesemia. She was admitted and started on IV hydration and magnesium replacement as well as medical management of atrial fibrillation. The diarrhea however continued for several more days during which she was given supportive care. Following that she developed an episode of ileus which extend her hospital stay. She was eventually discharged to rehabilitation. This morning she underwent an ultrasound of both lower extremities. She was found to have an acute DVT in the right common femoral vein. Treated with apixaban. Underwent left-sided lumpectomy for DCIS. Specimen - partial breast Procedure - excision with wire-guided localization Lymph node sampling ? no lymph nodes present Specimen integrity - single intact specimen Specimen size ? 15 x 9 x 4 cm Specimen laterality ? left Tumor site ? not specified Size (extent) of DCIS ? 0.3 cm in greatest dimension. See comment. 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 Architectural pattern - cribriform Nuclear grade - grade 2 (intermediate) Necrosis ? not identified Margins ? margin uninvolved by ductal carcinoma in situ. The tumor is 2 cm away from the closest anterior and posterior margins Treatment effect - no known presurgical therapy. Lymph nodes ? not submitted Distant metastasis ? not replicable Additional Pathologic Findings ? fibrocystic changes. - Focal changes consistent with previous biopsy site. Previous therapy: 1) FOLFOX x1; FOLFOX with Vectibix x3. 2) Underwent left hepatectomy 04/28/2016. Final pathology reviewed. Positive margin was cauterized during surgery. 3) Xeloda. Started cycle #3 11/27/2016 through 02/2017. Presented 01/03 for OV. Had syncopal episode. Taken to ED. Hydrated and felt better. No laboratory or EKG findings of cardiac event. Current therapy: 1) Infusional 5-fluorouracil with oxaliplatin. Presents for ongoing oncologic management--evaluation for cycle 3. Interim history: She had 1 episode of vomiting this past cycle. She also has some mild intermittent nausea and has been afraid to take antiemetic therapy because she is afraid to get acclimated to it and I will work which she gets sicker. She did have some burning of the tongue tip and sides of the tongue but no open mouth sores. Those occur the first week after treatment. Her weight is stable. Her bowels are unchanged. No signs of GI bleeding. No episodes of jaundice or abdominal pain. Neuropathy persisted longer this cycle and even yesterday she had some cold induced neuropathy of the hands. No difficulty or change in balance. No rash. She has mild fatigue. No unusual bleeding or unexplained bruising. PMH, medications and allergies as below personally reviewed by me today. Any changes documented in appropriate section. ROS: Constitutional: Denies episodes of fever and night sweats. Neuro: Denies vertigo and dizziness. HEENT: No recent change in voice, vision or hearing (significant b/l hearing loss--stable). Resp: No cough, wheezing or sputum production. No shortness of breath at rest or with walking. CVS: Denies exertional chest pain, PND, orthopnea. GI: See above. : No dysuria or gross hematuria. Stress incontinence stable. Endo: Denies hot flashes. Denies polyuria and polydipsia. Denies heat and cold intolerance. Musculoskeletal: Denies bone, back, joint and muscular pain. Derm: Denies rash. Denies diffuse pruritis. Heme: See above. Psych: Normal mood. PHYSICAL EXAM: Vitals: Blood pressure 134/66, pulse 64, temperature 37 ?C (98.6 ?F), temperature source Oral, weight 95.9 kg (211 lb 8 oz). Well-appearing and in no acute distress. EYES: Sclerae are anicteric bilaterally. NECK: Supple. No enlargement of thyroid. LYMPHATIC: There is no palpable cervical, supraclavicular adenopathy. RESPIRATORY: Inspiratory breath sounds are of normal intensity in all pedersen. No rales, wheezes or rhonchi. CARDIOVASCULAR: Rhythm is regular today. Normal intensity S1/S2. ABDOMEN: The abdomen is nondistended and non-tender. Extremities: Free of edema. SKIN: No jaundice or rash. No petechiae. NEUROLOGIC: foil cutter II-XII are grossly intact. No focal motor weakness. ASSESSMENT/PLAN: (C18.2) Malignant neoplasm of ascending colon (HCC) (primary encounter diagnosis) (C78.7) Liver metastasis (HCC) Assessment: -Patient had completed several months of capecitabine following resection for an isolated metastasis. She tolerated capecitabine only marginally and was on lower doses for the last couple cycles. She had marked difficulty with diarrhea, dehydration and several hospitalizations/ER visits for toxicity. However, lung nodule had been stable. -Recent PD with new liver and progressive lung metastasis. -Symptomatically tolerating chemotherapy very well. First cycle was complicated by port line rupture. Plan: -CT following this cycle. -Monitor CEA. -We can consider delaying cycle 4 week or 2 in order to get needed dental work done. 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 Plan: -Continue Xarelto. Sujit Vasquez DO Referring Provider: SUJIT VASQEUZ [[id number]] Allergies As of Date: 09/28/2017 Noted Allergy Reaction CORGARD (NADOLOL) 07/21/2015 12 - Shortness of Breath PENN 07/21/2015 12 - Shortness of Breath MORPHINE 07/21/2015 12 - Shortness of Breath Comments: Pt says she can tolerate oxycodone. PENICILLINS 07/21/2015 12 - Shortness of Breath PRAVACHOL (PRAVASTATIN) 07/21/2015 12 - Shortness of Breath SULFITE 07/21/2015 12 - Shortness of Breath Comments: Sulfites in food. Verified by refrigerator tester. ZOCOR (SIMVASTATIN) 07/21/2015 12 - Shortness of Breath Comments: Pt reports allergy to brand Zocor, tolerates generic. Date Reviewed: 09/28/2017 Reviewed by: Caitlin Moore, RN, RN - Fully Assessed Reason for Visit: Established Patient [[id number]] Primary Visit Diagnosis:Malignant neoplasm of ascending colon (HCC) [C18.2] Other Visit Diagnoses:Liver metastasis (HCC) [C78.7] Malignant neoplasm metastatic to lung, unspecified laterality (HCC) [C78.00] Order(s):CT CHEST W IVCON [[id number]] Order #: [id number] FUTURE iv contrast (radiology procedure)CT Chest W -Inject, intravenously, once for 1 dose.No IV access, insert saline lock prior to the beginning of sedation, infusion, injection of imaging exam. Discontinue saline lock post exam. If Pt. has a central line or IVAD, may access for administration according to line specific nursing protocol. Once exam is complete flush line and de- access according to line specific nursing protocol in the CT contrast administration guidelines link.Disp: 1 EachRfl: 0 CT LIVER W IVCON [[id number]] Order #: [id number] FUTURE iv contrast (radiology procedure)CT LIVER W IVCON Inject, intravenously, once for 1 dose. No IV access, insert saline lock prior to the beginning of sedation, infusion, injection of imaging exam. Discontinue saline lock post exam. If Pt. has a central line or IVAD, may access for administration according to line specific nursing protocol. Once exam is complete flush line and de- access according to line specific nursing protocol in the CT contrast administration guidelines link.Disp: 1 EachRfl: 0 Follow-up and Disposition History Recorded Prescriptions as of 09/28/2017 Sig: RIVAROXABAN 15 MG TABLET Take 1 tablet by mouth daily * Patient taking differently: Take by mouth daily with dinn* ONDANSETRON HCL 8 MG TABLET Take 1 tablet by mouth every * LIDOCAINE-PRILOCAINE 2.5 %-2.* Apply 1 application to affect* SODIUM CHLORIDE 0.9% FLUSH Access implanted vascular acc* HEPARIN, PORCINE (PF) 100 UNI* Access implanted vascular acc* LOPERAMIDE 2 MG TABLET Take 2 mg by mouth as needed. SODIUM CHLORIDE 0.9% FLUSH Access implanted vascular acc* HEPARIN LOCK FLUSH (PORCINE) * Access implanted vascular acc* FUROSEMIDE 20 MG TABLET Take 2 tablets by mouth twice* MONTELUKAST 10 MG TABLET Take 1 tablet by mouth daily * MAGNESIUM OXIDE 400 MG TABLET Take 400 mg by mouth twice da* ACETAMINOPHEN 500 MG TABLET Take 1,000 mg by mouth as nee* DIPHENHYDRAMINE 25 MG TABLET Take 50 mg by mouth as needed. ISOSORBIDE MONONITRATE ER 60 * Take 60 mg by mouth once wilman* ASPIRIN 81 MG TABLET,DELAYED * Take 81 mg by mouth once wilman* METOPROLOL TARTRATE 50 MG TAB* Take 50 mg by mouth twice wyatt* LISINOPRIL 10 MG TABLET Take 10 mg by mouth once wilman* OMEPRAZOLE 20 MG CAPSULE,MELODY* Take 20 mg by mouth once wilman* MOMETASONE 220 MCG (60 DOSES)* Inhale 1 Puff as instructed. CHOLECALCIFEROL (VITAMIN D3) * Take 1 tablet by mouth once d* SIMVASTATIN 40 MG TABLET Take 20 mg by mouth daily at * NITROGLYCERIN 0.3 MG SUBLINGU* Dissolve 0.3 mg under the ton* ALBUTEROL SULFATE HFA 90 MCG/* Inhale 2 Puffs as instructed * EPINEPHRINE 0.15 MG/0.15 ML I* by INJECTION(UNSPECIFIED PARE* LORATADINE 10 MG TABLET Take 10 mg by mouth as needed. IV CONTRAST (RADIOLOGY PROCED* CT Chest W -Inject, intraveno* IV CONTRAST (RADIOLOGY PROCED* CT LIVER W IVCON Inject, intr* KETOCONAZOLE 2 % TOPICAL CREAM Apply 1 application to affect* PROMETHAZINE 25 MG TABLET Take 0.5-1 tablets by mouth e* FERREX 150 MG IRON CAPSULE Take 1 capsule by mouth once * CLOTRIMAZOLE-BETAMETHASONE 1 * Apply 1 application to affect* HYDROCORTISONE VALERATE 0.2 %* Apply 1 application to affect* TRIAMCINOLONE ACETONIDE 0.025* Apply 1 application to affect* Problem List As Of Date 09/28/2017 Noted Resolved Malignant neoplasm of ascending colon (HCC) [C1*INVALID FOR* Abnormal mammogram of left breast [R92.8] INVALID FOR* 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] INVALID FOR* Abnormal magnetic resonance imaging of liver [R*INVALID FOR* Liver metastasis (HCC) [C78.7] INVALID FOR* Diabetes (HCC) [E11.9] INVALID FOR* Hearing loss [H91.90] INVALID FOR* Hypertension [I10] INVALID FOR* Hyperlipidemia [E78.5] INVALID FOR* Carotid artery disease (HCC) [I77.9] INVALID FOR* Coronary artery disease [I25.10] INVALID FOR* Asthma [J45.909] INVALID FOR* Sleep apnea [G47.30] INVALID FOR* Arthritis [M19.90] INVALID FOR* Fibromyalgia [M79.7] INVALID FOR* Atrial arrhythmia [I49.8] INVALID FOR* H/O degenerative disc disease [Z87.39] INVALID FOR* Spondylolysis [M43.00] INVALID FOR* Radiculopathy [M54.10] INVALID FOR* Eczema [L30.9] INVALID FOR* Anemia [D64.9] INVALID FOR* 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*INVALID FOR* Colon cancer (HCC) [C18.9] Encounter Status:Closed by SUJIT VASQUEZ DO on 09/28/17 PROGRESS Observed: 09/22/2017 Status: COMPLETED Source: [place] 7:56 AM [facility] REPOSITORY O ID: [id number] Author: Lc Elmore Service: (none) Author Type: Physician Type: Progress Notes Filed: 09/22/2017 8:04 AM Note Text: FOLLOW UP VISIT - POST OPLUMPECTOMY FOR DCIS, METASTATIC COLON CANCER, NIPPLE DISCHARGE, PORT-A-CATH FAILURE NAME: Quyen Coker [facility] NO.: [id number] DATE OF SERVICE: September 21, 2017 : 1940 REFERRING PHYSICIAN: Alvarez Mccoy MD Quyen presents for follow-up breast exam and follow-up after recent Port-A-Cath exchange. The patient had had a functional Port-A-Cath for approximately 2 years in the left subclavian vein. The patient noted pain at the port site after power infusion during a CAT scan. She then noted pain and swelling at the site and above the clavicle during her next chemotherapy treatment. Contrast study through the port demonstrated leakage where the catheter was affixed to the hub. My partner- Joan Hyatt, performed removal of left subclavian Port-A-Cath and replacement of a right subclavian Port-A-Cath. This is functional. The patient also notes scant brown nipple discharge from the left breast. This occurs most frequently during a warm shower. She notes no palpable abnormalities or other issues. 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 She returns here for follow-up of her breast related issues. 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 Her complicated history is as follows: The patient is a 74 year old female with a complaint of rectal bleeding and anemia. The patient initially underwent upper endoscopy which demonstrated no obvious source. The patient underwent colonoscopy by Dr. Chuck Penn on July 13 which demonstrated a fungating mass at the cecum ascending colon junction. Pathology returned as invasive adenocarcinoma. The patient is being seen by me today at the request of Dr. Penn for my opinion and advice regarding right colon cancer. The patient has a history of coronary disease and carotid stenosis. She has been on Plavix which was on hold after her endoscopy and prior to her surgical procedure. Additionally, she had undergone previous left carotid endarterectomy. Patient was recently evaluated by her metal patternmaker, Dr. Sujit Maya. She had undergone coronary bypass grafting in 2011 and is status post an LAD and left circumflex stent placement in November 2013. 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 She has good left ventricular ejection fraction. It was felt she was an acceptable risk for surgical intervention and did not require further preoperative cardiac diagnostic studies. I performed a laparoscopic right hemicolectomy on July 28, 2015. The pathology demonstrated: The tumor's size was 3.0x2.6.1.0 cm. Macroscopic tumor perforation was not identified. Histologic type: adenocarcinoma Histologic Grade: Low grade Histologic features for microsatellite instability - Intratumoral lymphocytic response: Mild to moderate Peritumoral lymphocytic response: Crohn's like lymphoid response: None Tumor subtype and differentiation: Not applicable MIcroscopic tumor extension: tumor invades through muscularis propria into subserosal adipose Lymphovascular invasion: None Perineural invasion: None Surgical margins were free of disease. Lymph nodes examined: 14 Lymph nodes involved: 0 PATHOLOGIC STAGE: pT 3, pN 0, M 0 Quyen noted loose stools had been continuing for the past few days at her August 15 follow-up. She has been maintaining a low residue diet. She also notes very transient dizziness. Post operative pain has been well controlled. The patient notes nausea. The patient`s appetite has been average. She was admitted to the hospital on August 22 with further looser stools and dizziness and some dehydration. Stool cultures were obtained which demonstrated no abnormalities. She was started on probiotics and Imodium and this significantly improved her stool frequency. She notes that at this point in time, her stools remain somewhat green but are less loose than they were. Overall she states her appetite still remains fair. She also notes that she is having issues of persistent nausea. She noted that this seemed similar to this as she had had in the past and was evaluated by Dr. Penn with upper endoscopy which was apparently unremarkable. The patient has been on a 20 mg Prilosec dose for some time. She notes that her nausea symptoms improve if she takes Maalox. The patient still is complaining of episodic transient dizziness that is worse if she raises up more quickly. Additionally, the patient underwent a recent follow-up mammogram. This was read as demonstrating a 8 mm mass with microcalcifications in her left breast. It was recommended biopsy listed BI-RADS Category 4. The patient did not have ultrasound performed. She irregularly performs a self breast exam and notes overall lumpy breasts but denies any specific changes. She denies skin changes, nipple discharge, or other difficulties. She had a previous mammogram that did demonstrate some microcalcifications similar mass. I obtained a CT scan of the abdomen and pelvis. This demonstrated no intra-abdominal abnormalities and demonstrated the anastomosis to have no signs of leakage inflammation or abscess which I felt could've been concerning for her abdominal complaints. There was noted to be in an area of asymmetric contrast enhancement in the liver which seemed to go away in delayed films. There were a list of possible options for this and MRI was recommended as an option. The patient had a previous CT scan preop which demonstrated similar findings from my standpoint and intraoperatively had no abnormalities noted in this location at the liver surface. I felt it was not necessary to have an MRI. Dr. Vasuqez evaluated the patient and was concerned of those findings and recommended an MRI be obtained. The patient has since seen her primary care physician. Her oral hypoglycemic medication was stopped which has both cured her dizziness symptoms and her epigastric/nausea symptoms. We also obtained ultrasound which demonstrates no specific abnormalities in her left breast I performed a left side stereotactic biopsy for her abnormal mammogram on September 15, 2014. The pathology returned as DCIS. The patient notes some resolution of the bruising since the procedure but now notes a mass that worries her at the biopsy site. 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 Nuclear Grade - 2 (intermediate). Necrosis - present, single cell necrosis. Calcifications - present. Additional findings - focal fibrocystic changes. Negative for invasive carcinoma in the submitted specimen. I plan to obtain an MRI to assess her breast for additional or more extended pathology. MRI of the breast returned as: IMPRESSION: KNOWN BIOPSY PROVEN MALIGNANCY Longitudinally oriented area of mild enhancement in the central left breast thought to be due to postbiopsy hemorrhage/inflammation. Tumor along this entire length is thought less likely but cannot be excluded. Brandee condon/giovanny:10/12/2015 12:43:57 Cash Room Clerk: [facility] letter sent: Category 6 MRI BI-RADS: 6 Known biopsy proven malignancy Aerologist: VIDYA Transcribe Date/Time: Oct 12 2015 12:43P Dictated by : BRANDEE AYALA MD This examination was interpreted and the report reviewed and electronically signed by: BRANDEE AYALA MD On Oct 12 2015 12:43PM Results-Findings * * *Final Report* * * DATE OF EXAM: Oct 11 2015 9:45AM [facility] [id number] - MRI BREAST YAN WWO / PROCEDURE REASON: DCIS (D05.10), ABNORMAL MAMMOGRAM OF LEFT BREAST (R92.8) * * * * Physician Interpretation * * * * #[id number] - MRI BREAST YAN WWO BREAST MRI OF BOTH BREASTS : 10/11/2015 HISTORY: Dcis (D05.10), Abnormal Mammogram Of Left Breast (R92.8). RESULT: No prior exams were available for comparison. Interpretation of this MRI was correlated with available mammograms. Gadolinium contrast calibrated to patient weight was injected. Axial T1, T2, pre and post contrast T1, and coronal images were obtained with a dedicated breast coil. The breasts are mostly fatty bilaterally. No mass, architectural distortion or abnormal enhancement is seen in the right breast. In the mid central right breast, centered just above the nipple is a longitudinal area of mild increased progressive enhancement. This is in the vicinity of recent biopsy. There is susceptibility artifact. However, the length of abnormal enhancement is much greater than the targeted lesion measuring approximately 4 cm in craniocaudal dimension. Maximal AP dimension is approximately 1.7 cm and maximal transverse dimension 1.3 cm. This abnormal enhancement could be biopsy related, perhaps representing postbiopsy hemorrhage/inflammation. No other areas of abnormal enhancement or architectural distortion are seen. There are no abnormalities seen in the axillary nodes region or infraclavicular nodes. The patient's abdominal MRI returned as: IMPRESSION: Large left hepatic lobe lesion, neoplastic in appearance and likely metastatic from the patient's known colonic CA. Partial SMV thrombus. COMMUNICATION: Communicated with: SUJIT Hernandez 10/13/2015 12:20 PM. Aerologist: [facility] Transcribe Date/Time: Oct 13 2015 12:26P Dictated by : BRANDEE AYALA MD This examination was interpreted and the report reviewed and electronically signed by: BRANDEE AYALA MD On Oct 13 2015 12:26PM Results-Findings * * *Final Report* * * DATE OF EXAM: Oct 13 2015 9:35AM [facility] [id number] - MRI ABDOMEN WWO CONTRAST / PROCEDURE REASON: abnormal ct of lever r93.2 malignant neoplasm of ascending colon c18.2 dcia lef * * * * Physician Interpretation * * * * RESULT: MRI of the abdomen without and with intravenous contrast HISTORY: abnormal ct of lever r93.2 malignant neoplasm of ascending colon c18.2 dcis left TECHNIQUE: Using the torso phased array coil, axial STIR, T1 weighted in- and [id number] and coronal HASTE images were obtained. Flow sensitive imaging through the portal vein was performed, as well. Then, using a 3-D GRE T1 weighted sequence, dynamic images were obtained before, during and after the administration of 19ml cc intravenous Dotarem. Comparison: None FINDINGS: Liver: There is a large, heterogeneously enhancing mass within the entire lateral segment of the left hepatic lobe and extending into the medial segment as well. This mass measures approximately 8.2 x 5.8 x 6.3 cm. This is most consistent with neoplasm, perhaps metastatic given the patient's history of colonic carcinoma. No additional hepatic lesions are seen. There is patchy hepatic fatty change throughout the right hepatic lobe. Biliary tract: The common bile duct is normal in course and caliber. No filling defect is identified within the common duct. Gallbladder: Absent Pancreatic duct: The visualized portions of the pancreatic duct are normal. Spleen: No lesion is identified. Pancreas: The pancreas enhances normally and is without focal lesions. Adrenal glands: No mass is identified Kidneys: The visualized portions of the kidneys are normal. No adenopathy is identified. There is partial, nonocclusive thrombus within the superior mesenteric vein just cephalad to its 1st branch. She had undergone liver resection with a left hepatectomy for metastatic colon cancer at April 27, 2016. She was doing well post her liver resection and then we proceeded with her surgical resection for her DCIS. I performed a left needle localization lumpectomy/partial mastectomy on July 05, 2016. The pathology demonstrated: MICROSCOPIC DIAGNOSIS Left breast mass, lumpectomy with needle localization: Focal ductal carcinoma in situ. Changes consistent with previous biopsy site. See cancer summary below. SJ:carmen 07/07/16 DUCTAL CARCINOMA IN SITU SUMMARY: Specimen - partial breast Procedure - excision with wire-guided localization Lymph node sampling ? no lymph nodes present Specimen integrity - single intact specimen Specimen size ? 15 x 9 x 4 cm Specimen laterality ? left Tumor site ? not specified Size (extent) of DCIS ? 0.3 cm in greatest dimension. See comment. 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 Architectural pattern - cribriform Nuclear grade - grade 2 (intermediate) Necrosis ? not identified Margins ? margin uninvolved by ductal carcinoma in situ. The tumor is 2 cm away from the closest anterior and posterior margins Treatment effect - no known presurgical therapy. Lymph nodes ? not submitted Distant metastasis ? not replicable Additional Pathologic Findings ? fibrocystic changes. - Focal changes consistent with previous biopsy site. Ancillary Studies from previous specimen ([id number] / [id number]): ER ? positive (65%, strong) FL ? positive (54%, strong) Her2 sophie (IHC) ? equivocal (2+) Her2 by FISH - not performed. Microcalcifications ? present in non-neoplastic tissue. Clinical history - Please make reference to previous specimen ([id number]) left breast, stereotactic core biopsy with diagnosis of ductal carcinoma in situ. Pathologic Staging: pTis(DCIS) pNx Mx The above summary is in compliance with [employer] (CAP) Cancer Protocols Checklist and [employer] Joint Committee on Cancer (AJCC), Staging Manual, 7th Ed. COMMENT A minute focus of ductal carcinoma in situ is noted adjacent to the previous biopsy site. The ductal carcinoma in situ is measured on the glass slide. The ductal carcinoma in situ in the previous breast biopsy (S16-244) measures 0.4 x 0.2 cm in greatest dimension and present in 2 out of 4 blocks. Case has been reviewed in consultation with Dr. Segovia who concurs with the above diagnosis. IDC:SARAH Napier notes the site is well healing. Post operative pain has been well controlled. The patient denies nausea. The patient`s appetite has been good. Given the size of her DCIS she was not felt to need radiation following her procedure. She is doing a self breast exam and notes no palpable abnormalities. She recently underwent follow-up mammogram on February 13, 2017. This demonstrated: IMPRESSION: PROBABLY BENIGN The grouped calcifications in the left breast are probably benign. A follow-up mammogram in 6 months is recommended to demonstrate stability. Alvarez oro/giovanny:02/13/2017 12:06:29 Cash Room Clerk: Aubrie CAZARES(iMchael)(Luis Miguel), [facility] letter sent: # Mo FU Mammogram BI-RADS: 3 Probably benign Aerologist: Giovanny Transcribe Date/Time: Feb 13 2017 11:10A Dictated by: ALVAREZ CORONADO MD This examination was interpreted and the report reviewed and electronically signed by: ALVAREZ CORONADO MD on Feb 13 2017 12:06PM ?EST The patient follow up study was found to have recurrence of her tumor at the edge of the previous resection in the liver and was felt to be a lung metastases. She is currently undergoing salvage/palliative chemotherapy VITALS: There were no vitals taken for this visit. On examination, patient's breast exam external is unremarkable with no nipple retraction, skin changes or other specific abnormalities. Her incision is well-healed. Bilateral breast exam demonstrates no specific palpable abnormalities. Her axillary exam is negative bilaterally. IMPRESSION: Status Post needle localization lumpectomy/partial mastectomy for left breast DCIS, metastatic colon cancer to the lung and liver PLAN: Quyen should return for bilateral mammography sometime in the next few months when her Port-A-Cath site has healed. At this juncture, I think is most important for her to continue her chemotherapy treatments. In less some obvious if an abnormality is noted within the mammogram. I would recommend no aggressive treatment for the nipple discharge at this time. I will plan to contact her once the mammogram has been completed. After reviewing the results. Diagnoses: (N64.52) Nipple discharge (primary encounter diagnosis) (Z95.828) Portacath in place (C78.7) Liver metastasis (HCC) (Z98.890) S/P lumpectomy, left breast Return to Clinic: The patient is instructed to follow- up with me in 6 months. Lc Elmore MD CNOV Observed: 09/21/2017 Status: COMPLETED Source: [place] 2:40 PM [facility] REPOSITORY Office Visit (GENSWS) QUYEN COKER ([id number]) 1940 F [facility] Date Time Provider Department 09/21/17 2:40 PM CATARINA, LC T GENSWS During your visit today, we recorded the following information about you: Lc Elmore MD 09/22/2017 8:04 AM Signed FOLLOW UP VISIT - POST OPLUMPECTOMY FOR DCIS, METASTATIC COLON CANCER, NIPPLE DISCHARGE, PORT-A-CATH FAILURE NAME: Quyen Coker CLINIC NO.: [id number] DATE OF SERVICE: September 21, 2017 : 1940 REFERRING PHYSICIAN: Alvarez Mccoy MD Quyen presents for follow-up breast exam and follow-up after recent Port-A-Cath exchange. The patient had had a functional Port-A-Cath for approximately 2 years in the left subclavian vein. The patient noted pain at the port site after power infusion during a CAT scan. She then noted pain and swelling at the site and above the clavicle during her next chemotherapy treatment. Contrast study through the port demonstrated leakage where the catheter was affixed to the hub. My partner-Joan Hyatt, performed removal of left subclavian Port-A-Cath and replacement of a right subclavian Port-A-Cath. This is functional. The patient also notes scant brown nipple discharge from the left breast. This occurs most frequently during a warm shower. She notes no palpable abnormalities or other issues. 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 She returns here for follow-up of her breast related issues. 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 Her complicated history is as follows: The patient is a 74 year old female with a complaint of rectal bleeding and anemia. The patient initially underwent upper endoscopy which demonstrated no obvious source. The patient underwent colonoscopy by Dr. Chuck Penn on July 13 which demonstrated a fungating mass at the cecum ascending colon junction. Pathology returned as invasive adenocarcinoma. The patient is being seen by me today at the request of Dr. Penn for my opinion and advice regarding right colon cancer. The patient has a history of coronary disease and carotid stenosis. She has been on Plavix which was on hold after her endoscopy and prior to her surgical procedure. Additionally, she had undergone previous left carotid endarterectomy. Patient was recently evaluated by her metal patternmaker, Dr. Sujit Maya. She had undergone coronary bypass grafting in 2011 and is status post an LAD and left circumflex stent placement in November 2013. 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 She has good left ventricular ejection fraction. It was felt she was an acceptable risk for surgical intervention and did not require further preoperative cardiac diagnostic studies. I performed a laparoscopic right hemicolectomy on July 28, 2015. The pathology demonstrated: The tumor's size was 3.0x2.6.1.0 cm. Macroscopic tumor perforation was not identified. Histologic type: adenocarcinoma Histologic Grade: Low grade Histologic features for microsatellite instability - Intratumoral lymphocytic response: Mild to moderate Peritumoral lymphocytic response: Crohn's like lymphoid response: None Tumor subtype and differentiation: Not applicable MIcroscopic tumor extension: tumor invades through muscularis propria into subserosal adipose Lymphovascular invasion: None Perineural invasion: None Surgical margins were free of disease. Lymph nodes examined: 14 Lymph nodes involved: 0 PATHOLOGIC STAGE: pT 3, pN 0, M 0 Quyen noted loose stools had been continuing for the past few days at her August 15 follow-up. She has been maintaining a low residue diet. She also notes very transient dizziness. Post operative pain has been well controlled. The patient notes nausea. The patient`s appetite has been average. She was admitted to the hospital on August 22 with further looser stools and dizziness and some dehydration. Stool cultures were obtained which demonstrated no abnormalities. She was started on probiotics and Imodium and this significantly improved her stool frequency. She notes that at this point in time, her stools remain somewhat green but are less loose than they were. Overall she states her appetite still remains fair. She also notes that she is having issues of persistent nausea. She noted that this seemed similar to this as she had had in the past and was evaluated by Dr. Penn with upper endoscopy which was apparently unremarkable. The patient has been on a 20 mg Prilosec dose for some time. She notes that her nausea symptoms improve if she takes Maalox. The patient still is complaining of episodic transient dizziness that is worse if she raises up more quickly. Additionally, the patient underwent a recent follow-up mammogram. This was read as demonstrating a 8 mm mass with microcalcifications in her left breast. It was recommended biopsy listed BI-RADS Category 4. The patient did not have ultrasound performed. She irregularly performs a self breast exam and notes overall lumpy breasts but denies any specific changes. She denies skin changes, nipple discharge, or other difficulties. She had a previous mammogram that did demonstrate some microcalcifications similar mass. I obtained a CT scan of the abdomen and pelvis. This demonstrated no intra-abdominal abnormalities and demonstrated the anastomosis to have no signs of leakage inflammation or abscess which I felt could've been concerning for her abdominal complaints. There was noted to be in an area of asymmetric contrast enhancement in the liver which seemed to go away in delayed films. There were a list of possible options for this and MRI was recommended as an option. The patient had a previous CT scan preop which demonstrated similar findings from my standpoint and intraoperatively had no abnormalities noted in this location at the liver surface. I felt it was not necessary to have an MRI. Dr. Vasquez evaluated the patient and was concerned of those findings and recommended an MRI be obtained. The patient has since seen her primary care physician. Her oral hypoglycemic medication was stopped which has both cured her dizziness symptoms and her epigastric/nausea symptoms. We also obtained ultrasound which demonstrates no specific abnormalities in her left breast I performed a left side stereotactic biopsy for her abnormal mammogram on September 15, 2014. The pathology returned as DCIS. The patient notes some resolution of the bruising since the procedure but now notes a mass that worries her at the biopsy site. 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 Nuclear Grade - 2 (intermediate). Necrosis - present, single cell necrosis. Calcifications - present. Additional findings - focal fibrocystic changes. Negative for invasive carcinoma in the submitted specimen. I plan to obtain an MRI to assess her breast for additional or more extended pathology. MRI of the breast returned as: IMPRESSION: KNOWN BIOPSY PROVEN MALIGNANCY Longitudinally oriented area of mild enhancement in the central left breast thought to be due to postbiopsy hemorrhage/inflammation. Tumor along this entire length is thought less likely but cannot be excluded. Brandee condon/giovanny:10/12/2015 12:43:57 Cash Room Clerk: Marissa [facility] letter sent: Category 6 MRI BI-RADS: 6 Known biopsy proven malignancy Aerologist: VIDYA Transcribe Date/Time: Oct 12 2015 12:43P Dictated by : BRANDEE AYALA MD This examination was interpreted and the report reviewed and electronically signed by: BRANDEE AYALA MD On Oct 12 2015 12:43PM Results-Findings * * *Final Report* * * DATE OF EXAM: Oct 11 2015 9:45AM [facility] [id number] - MRI BREAST YAN WWO / PROCEDURE REASON: DCIS (D05.10), ABNORMAL MAMMOGRAM OF LEFT BREAST (R92.8) * * * * Physician Interpretation * * * * #[id number] - MRI BREAST YAN WWO BREAST MRI OF BOTH BREASTS : 10/11/2015 HISTORY: Dcis (D05.10), Abnormal Mammogram Of Left Breast (R92.8). RESULT: No prior exams were available for comparison. Interpretation of this MRI was correlated with available mammograms. Gadolinium contrast calibrated to patient weight was injected. Axial T1, T2, pre and post contrast T1, and coronal images were obtained with a dedicated breast coil. The breasts are mostly fatty bilaterally. No mass, architectural distortion or abnormal enhancement is seen in the right breast. In the mid central right breast, centered just above the nipple is a longitudinal area of mild increased progressive enhancement. This is in the vicinity of recent biopsy. There is susceptibility artifact. However, the length of abnormal enhancement is much greater than the targeted lesion measuring approximately 4 cm in craniocaudal dimension. Maximal AP dimension is approximately 1.7 cm and maximal transverse dimension 1.3 cm. This abnormal enhancement could be biopsy related, perhaps representing postbiopsy hemorrhage/inflammation. No other areas of abnormal enhancement or architectural distortion are seen. There are no abnormalities seen in the axillary nodes region or infraclavicular nodes. The patient's abdominal MRI returned as: IMPRESSION: Large left hepatic lobe lesion, neoplastic in appearance and likely metastatic from the patient's known colonic CA. Partial SMV thrombus. COMMUNICATION: Communicated with: SUJIT Hernandez 10/13/2015 12:20 PM. Aerologist: [facility] Transcribe Date/Time: Oct 13 2015 12:26P Dictated by : BRANDEE AYALA MD This examination was interpreted and the report reviewed and electronically signed by: BRANDEE AYALA MD On Oct 13 2015 12:26PM Results-Findings * * *Final Report* * * DATE OF EXAM: Oct 13 2015 9:35AM [facility] [id number] - MRI ABDOMEN WWO CONTRAST / PROCEDURE REASON: abnormal ct of lever r93.2 malignant neoplasm of ascending colon c18.2 dcia lef * * * * Physician Interpretation * * * * RESULT: MRI of the abdomen without and with intravenous contrast HISTORY: abnormal ct of lever r93.2 malignant neoplasm of ascending colon c18.2 dcis left TECHNIQUE: Using the torso phased array coil, axial STIR, T1 weighted in- and [id number] and coronal HASTE images were obtained. Flow sensitive imaging through the portal vein was performed, as well. Then, using a 3-D GRE T1 weighted sequence, dynamic images were obtained before, during and after the administration of 19ml cc intravenous Dotarem. Comparison: None FINDINGS: Liver: There is a large, heterogeneously enhancing mass within the entire lateral segment of the left hepatic lobe and extending into the medial segment as well. This mass measures approximately 8.2 x 5.8 x 6.3 cm. This is most consistent with neoplasm, perhaps metastatic given the patient's history of colonic carcinoma. No additional hepatic lesions are seen. There is patchy hepatic fatty change throughout the right hepatic lobe. Biliary tract: The common bile duct is normal in course and caliber. No filling defect is identified within the common duct. Gallbladder: Absent Pancreatic duct: The visualized portions of the pancreatic duct are normal. Spleen: No lesion is identified. Pancreas: The pancreas enhances normally and is without focal lesions. Adrenal glands: No mass is identified Kidneys: The visualized portions of the kidneys are normal. No adenopathy is identified. There is partial, nonocclusive thrombus within the superior mesenteric vein just cephalad to its 1st branch. She had undergone liver resection with a left hepatectomy for metastatic colon cancer at April 27, 2016. She was doing well post her liver resection and then we proceeded with her surgical resection for her DCIS. I performed a left needle localization lumpectomy/partial mastectomy on July 05, 2016. The pathology demonstrated: MICROSCOPIC DIAGNOSIS Left breast mass, lumpectomy with needle localization: Focal ductal carcinoma in situ. Changes consistent with previous biopsy site. See cancer summary below. SJ:carmen 07/07/16 DUCTAL CARCINOMA IN SITU SUMMARY: Specimen - partial breast Procedure - excision with wire-guided localization Lymph node sampling ? no lymph nodes present Specimen integrity - single intact specimen Specimen size ? 15 x 9 x 4 cm Specimen laterality ? left Tumor site ? not specified Size (extent) of DCIS ? 0.3 cm in greatest dimension. See comment. 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 Architectural pattern - cribriform Nuclear grade - grade 2 (intermediate) Necrosis ? not identified Margins ? margin uninvolved by ductal carcinoma in situ. The tumor is 2 cm away from the closest anterior and posterior margins Treatment effect - no known presurgical therapy. Lymph nodes ? not submitted Distant metastasis ? not replicable Additional Pathologic Findings ? fibrocystic changes. - Focal changes consistent with previous biopsy site. Ancillary Studies from previous specimen ([id number] / [id number]): ER ? positive (65%, strong) FL ? positive (54%, strong) Her2 sophie (IHC) ? equivocal (2+) Her2 by FISH - not performed. Microcalcifications ? present in non-neoplastic tissue. Clinical history - Please make reference to previous specimen ([id number]) left breast, stereotactic core biopsy with diagnosis of ductal carcinoma in situ. Pathologic Staging: pTis(DCIS) pNx Mx The above summary is in compliance with [employer] (CAP) Cancer Protocols Checklist and [employer] Committee on Cancer (AJCC), Staging Manual, 7th Ed. COMMENT A minute focus of ductal carcinoma in situ is noted adjacent to the previous biopsy site. The ductal carcinoma in situ is measured on the glass slide. The ductal carcinoma in situ in the previous breast biopsy (S16-244) measures 0.4 x 0.2 cm in greatest dimension and present in 2 out of 4 blocks. Case has been reviewed in consultation with Dr. Segovia who concurs with the above diagnosis. IDC:SARAH Napier notes the site is well healing. Post operative pain has been well controlled. The patient denies nausea. The patient`s appetite has been good. Given the size of her DCIS she was not felt to need radiation following her procedure. She is doing a self breast exam and notes no palpable abnormalities. She recently underwent follow-up mammogram on February 13, 2017. This demonstrated: IMPRESSION: PROBABLY BENIGN The grouped calcifications in the left breast are probably benign. A follow-up mammogram in 6 months is recommended to demonstrate stability. Alvarez oro/giovanny:02/13/2017 12:06:29 Cash Room Clerk: Aubrie VALDEZ)(Luis Miguel), [facility] letter sent: # Mo FU Mammogram BI-RADS: 3 Probably benign Aerologist: Giovanny Transcribe Date/Time: Feb 13 2017 11:10A Dictated by: ALVAREZ CORONADO MD This examination was interpreted and the report reviewed and electronically signed by: ALVAREZ CORONADO MD on Feb 13 2017 12:06PM ?EST The patient follow up study was found to have recurrence of her tumor at the edge of the previous resection in the liver and was felt to be a lung metastases. She is currently undergoing salvage/palliative chemotherapy VITALS: There were no vitals taken for this visit. On examination, patient's breast exam external is unremarkable with no nipple retraction, skin changes or other specific abnormalities. Her incision is well-healed. Bilateral breast exam demonstrates no specific palpable abnormalities. Her axillary exam is negative bilaterally. IMPRESSION: Status Post needle localization lumpectomy/partial mastectomy for left breast DCIS, metastatic colon cancer to the lung and liver PLAN: Quyen should return for bilateral mammography sometime in the next few months when her Port-A-Cath site has healed. At this juncture, I think is most important for her to continue her chemotherapy treatments. In less some obvious if an abnormality is noted within the mammogram. I would recommend no aggressive treatment for the nipple discharge at this time. I will plan to contact her once the mammogram has been completed. After reviewing the results. Diagnoses: (N64.52) Nipple discharge (primary encounter diagnosis) (Z95.828) Portacath in place (C78.7) Liver metastasis (HCC) (Z98.890) S/P lumpectomy, left breast Return to Clinic: The patient is instructed to follow- up with me in 6 months. Lc Elmore MD Referring Provider: ALVAREZ MCCOY [[id number]] Allergies As of Date: 09/21/2017 Noted Allergy Reaction CORGARD (NADOLOL) 07/21/2015 12 - Shortness of Breath PENN 07/21/2015 12 - Shortness of Breath MORPHINE 07/21/2015 12 - Shortness of Breath Comments: Pt says she can tolerate oxycodone. PENICILLINS 07/21/2015 12 - Shortness of Breath PRAVACHOL (PRAVASTATIN) 07/21/2015 12 - Shortness of Breath SULFITE 07/21/2015 12 - Shortness of Breath Comments: Sulfites in food. Verified by refrigerator tester. ZOCOR (SIMVASTATIN) 07/21/2015 12 - Shortness of Breath Comments: Pt reports allergy to brand Zocor, tolerates generic. Date Reviewed: 09/21/2017 Reviewed by: Darcie Rodriguez) Rylee - Fully Assessed Reason for Visit: Follow Up [171] Primary Visit Diagnosis:Nipple discharge [N64.52] Other Visit Diagnoses:Portacath in place [Z95.828] Liver metastasis (HCC) [C78.7] S/P lumpectomy, left breast [Z98.890] Order(s):[employer] [[id number]] Order #: [id number] FUTURE Prescriptions as of 09/21/2017 Sig: RIVAROXABAN 15 MG TABLET Take 1 tablet by mouth daily * Patient taking differently: Take by mouth daily with dinn* ONDANSETRON HCL 8 MG TABLET Take 1 tablet by mouth every * SODIUM CHLORIDE 0.9% FLUSH Access implanted vascular acc* HEPARIN, PORCINE (PF) 100 UNI* Access implanted vascular acc* LOPERAMIDE 2 MG TABLET Take 2 mg by mouth as needed. PROMETHAZINE 25 MG TABLET Take 0.5-1 tablets by mouth e* SODIUM CHLORIDE 0.9% FLUSH Access implanted vascular acc* HEPARIN LOCK FLUSH (PORCINE) * Access implanted vascular acc* FUROSEMIDE 20 MG TABLET Take 2 tablets by mouth twice* MONTELUKAST 10 MG TABLET Take 1 tablet by mouth daily * MAGNESIUM OXIDE 400 MG TABLET Take 400 mg by mouth twice da* ACETAMINOPHEN 500 MG TABLET Take 1,000 mg by mouth as nee* DIPHENHYDRAMINE 25 MG TABLET Take 50 mg by mouth as needed. ISOSORBIDE MONONITRATE ER 60 * Take 60 mg by mouth once wilman* ASPIRIN 81 MG TABLET,DELAYED * Take 81 mg by mouth once wilman* METOPROLOL TARTRATE 50 MG TAB* Take 50 mg by mouth twice wyatt* LISINOPRIL 10 MG TABLET Take 10 mg by mouth once wilman* OMEPRAZOLE 20 MG CAPSULE,MELODY* Take 20 mg by mouth once wilman* MOMETASONE 220 MCG (60 DOSES)* Inhale 1 Puff as instructed. CHOLECALCIFEROL (VITAMIN D3) * Take 1 tablet by mouth once d* SIMVASTATIN 40 MG TABLET Take 20 mg by mouth daily at * NITROGLYCERIN 0.3 MG SUBLINGU* Dissolve 0.3 mg under the ton* ALBUTEROL SULFATE HFA 90 MCG/* Inhale 2 Puffs as instructed * EPINEPHRINE 0.15 MG/0.15 ML I* by INJECTION(UNSPECIFIED PARE* LORATADINE 10 MG TABLET Take 10 mg by mouth as needed. LIDOCAINE-PRILOCAINE 2.5 %-2.* Apply 1 application to affect* KETOCONAZOLE 2 % TOPICAL CREAM Apply 1 application to affect* FERREX 150 MG IRON CAPSULE Take 1 capsule by mouth once * CLOTRIMAZOLE-BETAMETHASONE 1 * Apply 1 application to affect* HYDROCORTISONE VALERATE 0.2 %* Apply 1 application to affect* TRIAMCINOLONE ACETONIDE 0.025* Apply 1 application to affect* Problem List As Of Date 09/21/2017 Noted Resolved Malignant neoplasm of ascending colon (HCC) [C1*INVALID FOR* Abnormal mammogram of left breast [R92.8] INVALID FOR* 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] INVALID FOR* Abnormal magnetic resonance imaging of liver [R*INVALID FOR* Liver metastasis (HCC) [C78.7] INVALID FOR* Diabetes (HCC) [E11.9] INVALID FOR* Hearing loss [H91.90] INVALID FOR* Hypertension [I10] INVALID FOR* Hyperlipidemia [E78.5] INVALID FOR* Carotid artery disease (HCC) [I77.9] INVALID FOR* Coronary artery disease [I25.10] INVALID FOR* Asthma [J45.909] INVALID FOR* Sleep apnea [G47.30] INVALID FOR* Arthritis [M19.90] INVALID FOR* Fibromyalgia [M79.7] INVALID FOR* Atrial arrhythmia [I49.8] INVALID FOR* H/O degenerative disc disease [Z87.39] INVALID FOR* Spondylolysis [M43.00] INVALID FOR* Radiculopathy [M54.10] INVALID FOR* Eczema [L30.9] INVALID FOR* Anemia [D64.9] INVALID FOR* 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*INVALID FOR* Colon cancer (HCC) [C18.9] Letter Text Encounter Status:Closed by LC ELMORE MD on 09/22/17 ALLERGIES ALLERGIES DATE TYPE / CODE NAME / CODE REACTION SEVERITY SOURCE 09/12/2018 Drug pravastatin Hives Unknown [place] Allergy/416 sodium/[id number]( Community 611082([facility] 09/12/2018 Drug atorvastatin Pain in joints Unknown [place] Allergy/416 calcium/[id number] Community 595477([facility] ([facility] ED CT) Repository 09/12/2018 Drug Penicillins/F16360 Hives Unknown [place] Allergy/416 0476(RXNORM) Community 675750([facility] ED CT) Repository 09/12/2018 Drug morphine/[id number] CHEST PAIN Unknown [place] Allergy/416 5(RXNORM) Community 693271([facility] ED CT) Repository 09/12/2018 Drug nadolol/[id number] Hives Unknown [place] Allergy/416 (RXNORM) Community 528177([facility] ED CT) Repository 09/12/2018 Drug sulfite/[id number] Hives Unknown [place] Allergy/416 (RXNORM) Community 025442([facility] ED CT) Repository 09/12/2018 Drug pitavastatin/F0060 myalgia Unknown [place] Allergy/416 27594(RXNORM) Community 101961([facility] ED CT) Repository 09/12/2018 Drug penn/[id number] Shortness of Unknown [place] Allergy/416 (RXNORM) breath Community 026601([facility] ED CT) Repository 12/07/2017 Environ/420 PERFUMES SHORTNESS OF [facility] 383605([facility] Main [place] ED [place]) Repository 07/21/2015 DRUG NADOLOL SHORTNESS OF [facility] INGREDI/419 Main [place] 532423(SNOM Repository ED CT) 07/21/2015 DRUG PENN SHORTNESS OF [facility] INGREDI/419 Main [place] 286956(SNOM Repository ED CT) 07/21/2015 DRUG MORPHINE SHORTNESS OF [facility] INGREDI/419 Main [place] 848076(SNOM Repository ED CT) 07/21/2015 Drug PENICILLINS SHORTNESS OF [facility] Class/36878 Main [place] 1003(SNOMED Repository CT) 07/21/2015 DRUG PRAVASTATIN SHORTNESS OF [facility] INGREDI/419 Main [place] 089863(SNOM Repository ED CT) 07/21/2015 DRUG SULFITE SHORTNESS OF [facility] INGREDI/419 Main [place] 395124(SNOM Repository ED CT) 07/21/2015 DRUG SIMVASTATIN SHORTNESS OF [facility] INGREDI/419 Main [place] 872035(SNOM Repository ED CT) NG/14927828 NADOLOL [facility](SNOMED [facility] CT) Repository NG/62825572 PENN [facility](SNOMED [facility]) Repository NG/34464965 MORPHINE [facility](SNOMED [facility]) Repository NG/78218620 PENICILLINS [facility] 6(SNOMED [facility]) Repository NG/84452736 PRAVASTATIN [facility](SNOMED [facility] CT) Repository NG/12521402 SULFITE [facility](SNOMED [facility]) Repository NG/23484322 SIMVASTATIN [facility](SNOMED [facility] CT) Repository ENCOUNTERS ENCOUNTERS ADMIT/DISCHARGE ACCOUNT NUMBER ADMITTING ENCOUNTER LOCATION SOURCE CLASS 09/20/2018/09/20/19 [id number] Ambulatory [address] Repository 09/18/2018/09/19/19 [id number] Ambulatory [address] Repository 09/17/2018/09/19/19 [id number] Ambulatory [address] Repository 09/17/2018/09/17/19 [id number] Ambulatory [address] Repository 09/17/2018/09/17/19 [id number] Ambulatory [address] Repository 09/17/2018/09/17/19 [id number] Ambulatory [address] Repository 09/12/2018/09/12/19 [id number] Ambulatory BMSBuilding: [address] Repository 09/11/2018 [id number] Ambulatory [facility] Hospital ding:[facility]S Repository 09/10/2018/09/10/19 [id number] Ambulatory [address] Repository 09/06/2018/09/10/19 [id number] Ambulatory [address] Repository 09/04/2018/09/05/19 [id number] Ambulatory [address] Repository 09/03/2018/09/04/19 [id number] Ambulatory [address] Repository 09/03/2018/09/03/19 [id number] Ambulatory [place] [facility] [place] Repository 09/03/2018/09/03/19 [id number] Ambulatory [place] [facility] [place] Repository 09/03/2018/09/03/19 [id number] Ambulatory [place] [facility] [place] Repository 09/02/2018 [id number] Ambulatory [facility] ding:LAB Repository 08/13/2018 [id number] Ambulatory [facility] Other [place] Repository 08/13/2018 [id number] Ambulatory [facility] Other [place] Repository 08/09/2018/08/12/20 [id number] Ambulatory [facility] Main [place] Repository 08/07/2018/08/08/20 [id number] Ambulatory [facility] [place] Repository 08/06/2018/08/06/20 [id number] Ambulatory [facility] [place] Repository 08/06/2018/08/07/20 [id number] Ambulatory [facility] [place] Repository 08/06/2018/08/07/20 [id number] Ambulatory [facility] [place] Repository 08/06/2018/08/06/20 [id number] Ambulatory [facility] [place] Repository 08/02/2018/08/02/20 [id number] Ambulatory [facility] [place] Repository 08/02/2018/08/02/20 [id number] Ambulatory [facility] [place] Repository 08/02/2018/08/02/20 [id number] Ambulatory [facility] [place] Repository 08/02/2018/08/05/20 [id number] Ambulatory [facility] [place] Repository 07/29/2018/07/29/20 [id number] Emergency [place] ding:ED Repository 07/26/2018/07/29/20 [id number] Ambulatory [facility] [place] Repository 07/24/2018/07/25/20 [id number] Ambulatory [facility] [place] Repository 07/23/2018/07/23/20 [id number] Ambulatory [facility] [place] Repository 07/23/2018/07/23/20 [id number] Ambulatory [facility] [place] Repository 07/23/2018/07/24/20 [id number] Ambulatory [facility] [place] Repository 07/23/2018/07/23/20 [id number] Ambulatory [facility] [place] Repository 07/12/2018/07/15/20 [id number] Ambulatory [facility] [place] Repository 07/10/2018/07/11/20 [id number] Ambulatory [facility] [place] Repository 07/09/2018/07/10/20 [id number] Ambulatory [facility] [place] Repository 07/09/2018/07/09/20 [id number] Ambulatory [facility] [place] Repository 06/14/2018/06/17/20 [id number] Ambulatory [facility] [place] Repository 06/12/2018/06/13/20 [id number] Ambulatory [facility] [place] Repository 06/11/2018/06/11/20 [id number] Ambulatory [facility] [place] Repository 06/11/2018/06/12/20 [id number] Ambulatory [facility] [place] Repository 06/11/2018/06/11/20 [id number] Ambulatory [facility] [place] Repository 05/31/2018/06/05/20 [id number] Ambulatory [facility] [place] Repository 05/29/2018/05/30/20 [id number] Ambulatory [facility] [place] Repository 05/28/2018/05/28/20 [id number] Ambulatory [facility] [place] Repository 05/28/2018/05/28/20 [id number] Ambulatory [facility] [place] Repository 05/28/2018/05/29/20 [id number] Ambulatory [facility] [place] Repository 05/28/2018/05/28/20 [id number] Ambulatory [facility] [place] Repository 05/17/2018/05/20/20 [id number] Ambulatory [facility] [place] Repository 05/15/2018/05/16/20 [id number] Ambulatory [facility] [place] Repository 05/14/2018/05/16/20 [id number] Ambulatory [facility] [place] Repository 05/13/2018/05/16/20 [id number] Ambulatory [facility] [place] Repository 05/13/2018/05/13/20 [id number] Ambulatory [facility] [place] Repository 05/13/2018/05/14/20 [id number] Ambulatory [facility] [place] Repository 05/13/2018/05/13/20 [id number] Ambulatory [facility] [place] Repository 05/03/2018/05/06/20 [id number] Ambulatory [facility] [place] Repository 05/01/2018/05/02/20 [id number] Ambulatory [facility] [place] Repository 04/26/2018/04/26/20 [id number] Ambulatory [facility] [facility] [place] Repository 04/26/2018/04/30/20 [id number] Ambulatory [place] [facility] [place] Repository 04/26/2018/04/26/20 [id number] Ambulatory [facility] [facility] [place] Repository 04/19/2018/04/22/20 [id number] Ambulatory [place] [facility] [place] Repository 04/17/2018/04/18/20 [id number] Ambulatory [facility] [facility] [place] Repository 04/16/2018/04/16/20 [id number] Ambulatory [place] [facility] [place] Repository 04/16/2018/04/17/20 [id number] Ambulatory [facility] [facility] [place] Repository 04/16/2018/04/16/20 [id number] Ambulatory [place] [facility] [place] Repository 04/05/2018/04/05/20 [id number] Ambulatory [facility] [place] Repository 04/05/2018/04/08/20 [id number] Ambulatory [place] [facility] [place] Repository 04/03/2018/04/04/20 [id number] Ambulatory [facility] [facility] [place] Repository 04/02/2018/04/03/20 [id number] Ambulatory [place] [facility] [place] Repository 04/02/2018/04/02/20 [id number] Ambulatory [place] [facility] [place] Repository 04/02/2018/04/02/20 [id number] Ambulatory [place] [facility] [place] Repository 03/21/2018/03/22/20 [id number] Ambulatory [place] [facility] [place] Repository 03/19/2018/03/20/20 [id number] Ambulatory [place] [facility] [place] Repository 03/18/2018/03/18/20 [id number] Ambulatory [place] [facility] [place] Repository 03/18/2018/03/19/20 [id number] Ambulatory [place] [facility] [place] Repository 03/18/2018/03/18/20 [id number] Ambulatory [place] [facility] [place] Repository 03/12/2018/03/14/20 [id number] Ambulatory [place] [facility] [place] Repository 03/12/2018/03/13/20 [id number] Ambulatory [facility] [facility] [place] Repository 03/12/2018/03/12/20 [id number] Ambulatory [place] [facility] [place] Repository 03/08/2018/03/11/20 [id number] Ambulatory [facility] [facility] [place] Repository 03/06/2018/03/07/20 [id number] Ambulatory [place] [facility] [place] Repository 03/05/2018/03/05/20 [id number] Ambulatory BMSBuilding: [place] 18 [facility] Repository 03/05/2018 [id number] Ambulatory BMSBuilding: [place] [facility] Repository 03/04/2018/03/04/20 [id number] Ambulatory [place] [facility] [place] Repository 03/04/2018/03/05/20 [id number] Ambulatory [place] [facility] [place] Repository 03/04/2018/03/04/20 [id number] Ambulatory [facility] [place] Repository 02/22/2018/02/23/20 [id number] Ambulatory [place] [facility] [place] Repository 02/21/2018/02/23/20 [id number] Ambulatory [facility] [place] Repository 02/19/2018/02/21/20 [id number] Ambulatory [place] [facility] [place] Repository 02/18/2018/02/20/20 [id number] Ambulatory [place] [facility] [place] Repository 02/18/2018/02/19/20 [id number] Ambulatory [facility] [facility] [place] Repository 02/18/2018/02/19/20 [id number] Ambulatory [facility] [place] Repository 02/07/2018/02/09/20 [id number] Ambulatory [place] [facility] [place] Repository 02/07/2018/02/08/20 [id number] Ambulatory [place] [facility] [place] Repository 02/05/2018/02/07/20 [id number] Ambulatory [place] [facility] [place] Repository 02/04/2018/02/06/20 [id number] Ambulatory [facility] [facility] [place] Repository 02/04/2018 [id number] Ambulatory [facility] [place] Repository 02/04/2018/02/05/20 [id number] Ambulatory [place] [facility] [place] Repository 01/25/2018/01/29/20 [id number] Ambulatory [place] [facility] [place] Repository 01/23/2018/01/25/20 [id number] Ambulatory [place] [facility] [place] Repository 01/22/2018/01/25/20 [id number] Ambulatory [place] [facility] [place] Repository 01/22/2018 [id number] Ambulatory [facility] [place] Repository 01/22/2018/01/24/20 [id number] Ambulatory [place] [facility] [place] Repository 01/22/2018/01/23/20 [id number] Ambulatory [place] [facility] [place] Repository 01/16/2018/01/17/20 [id number] Ambulatory [place] 18 [facility] ding:SDC Repository 01/04/2018/01/08/20 [id number] Ambulatory [place] [facility] [place] Repository 01/04/2018 [id number] Ambulatory [facility] [place] Repository 01/04/2018/01/05/20 [id number] Ambulatory [place] [facility] [place] Repository 12/26/2017/12/28/19 [id number] Ambulatory [place] [facility] [place] Repository 12/24/2017/12/25/19 [id number] Emergency [place] 18 [facility] ding:ED Repository 12/24/2017 [id number] Ambulatory [facility] [place] Repository 12/24/2017/12/26/19 [id number] Ambulatory [place] [facility] [place] Repository 12/24/2017/12/25/19 [id number] Ambulatory [place] [facility] [place] Repository 12/21/2017/12/25/19 [id number] Ambulatory [facility] [facility] [place] Repository 12/18/2017/12/21/19 [id number] Ambulatory [place] [facility] [place] Repository 12/18/2017/12/22/19 [id number] Ambulatory [facility] [facility] [place] Repository 12/18/2017/12/19/19 [id number] Ambulatory [facility] [facility] [place] Repository 12/18/2017 [id number] Ambulatory [facility] [place] Repository 12/18/2017/12/19/19 [id number] Ambulatory [facility] [facility] [place] Repository 12/18/2017/02/12/20 [id number] Ambulatory [facility] [facility] [place] Repository 12/13/2017/12/15/19 [id number] Ambulatory [place] [facility] [place] Repository 12/13/2017/12/14/19 [id number] Emergency [address] ding:ED Repository 12/13/2017 [id number] Ambulatory [facility] [place] Repository 12/12/2017/12/14/19 [id number] Ambulatory [place] [facility] [place] Repository 12/10/2017/12/12/19 [id number] Ambulatory [facility] [place] Repository 12/07/2017/12/12/19 [id number] Ambulatory [facility] [place] Repository 12/07/2017/12/11/19 [id number] Ambulatory [facility] [place] Repository 12/07/2017/12/08/19 [id number] Ambulatory [facility] [facility] [place] Repository 11/28/2017/11/30/19 [id number] Ambulatory [place] [facility] [place] Repository 11/26/2017/11/28/19 [id number] Ambulatory [place] [facility] [place] Repository 11/23/2017/11/27/19 [id number] Ambulatory [facility] [facility] [place] Repository 11/23/2017 [id number] Ambulatory [facility] [place] Repository 11/23/2017/11/24/19 [id number] Ambulatory [place] [facility] [place] Repository 11/22/2017/11/27/19 [id number] Ambulatory [place] [facility] [place] Repository 11/20/2017 [id number] Ambulatory [facility] ding:BIRAD Repository 11/12/2017/11/14/19 [id number] Ambulatory [place] [facility] [place] Repository 11/12/2017 [id number] Ambulatory [facility] [place] Repository 11/12/2017/11/13/19 [id number] Ambulatory [place] [facility] [place] Repository 11/09/2017 [id number] Ambulatory [facility] Main [place] Repository 11/09/2017/11/13/19 [id number] Ambulatory [facility] [facility] [place] Repository 11/09/2017/11/10/19 [id number] Ambulatory [facility] [facility] [place] Repository 11/08/2017/11/13/19 [id number] Ambulatory [address] Main [place] Repository 11/07/2017/11/08/19 [id number] Ambulatory BMSBuilding: [place] 18 [facility] Repository 11/07/2017 [id number] Ambulatory BMSBuilding: [place] [facility] Repository 10/31/2017/11/02/19 [id number] Ambulatory [address] Main [place] Repository 10/29/2017/10/31/19 [id number] Ambulatory [address] [place] Repository 10/26/2017 [id number] Ambulatory [facility] [place] Repository 10/26/2017/10/30/19 [id number] Ambulatory [address] [place] Repository 10/26/2017/10/27/19 [id number] Ambulatory [address] Repository 10/26/2017 [id number] Ambulatory [facility] MEDICAL Repository CENTERBuildi ng:AGWM 10/18/2017 [id number] Ambulatory [facility] ding:[facility]S Repository 10/17/2017/10/17/19 [id number] Ambulatory [address] Main [place] Repository 10/17/2017/10/18/19 [id number] Ambulatory [address] Main [place] Repository 10/17/2017/10/17/19 [id number] Ambulatory [address] Main [place] Repository 10/15/2017/10/16/19 [id number] Ambulatory [address] Main [place] Repository 10/12/2017/10/16/19 [id number] Ambulatory [address] Main [place] Repository 10/10/2017/10/12/19 [id number] Ambulatory [address] Main [place] Repository 10/10/2017 [id number] Ambulatory [facility] Main [place] Repository 10/10/2017/10/10/19 [id number] Ambulatory [address] Main [place] Repository 10/10/2017/10/11/19 [id number] Ambulatory [address] [place] Repository 10/01/2017/10/01/19 [id number] Emergency [place] ding:ED Repository 10/01/2017/10/02/19 [id number] Ambulatory [address] [place] Repository 09/28/2017 [id number] Ambulatory [facility] Repository 09/28/2017/10/02/19 [id number] Ambulatory [address] Repository 09/28/2017/09/28/19 [id number] Ambulatory [address] Repository 09/21/2017/09/26/19 [id number] Ambulatory [address] Repository PAYERS PAYERS ENCOUNTER GUARANTOR PAYER SUBSCRIBER SOURCE 09/12/2018 QUYEN Burdick Primary QUYEN Foreman [id number] Insurance:MEDICARE VASICHKODOB: Community [place] BPolicy Number: [id number] [id number] Repository 50170Ckm: (330) Date:2018-03-05 [phone] () 09/12/2018 Secondary STEVIE [place] Insurance:AARPPolicy VASICHKODOB: Community Number: [id number] Hospital [id number] Repository Date:[id number] [facility] [place], [place] [address]BD: 09/12/2018 Tertiary NOT GIVENUNK [place] Insurance:SELF PAY [facility]: Effective Repository Date:2018-09-11 09/11/2018 STEVIE Primary QUYEN Foreman [id number] Insurance:MEDICARE VASICHKODOB: Community [place] BPolicy Number: [id number] [id number] Repository 27069Btk: (330) Date:2018-08-30 [phone] () 09/11/2018 Secondary STEVIE [place] Insurance:AARPPolicy VASICHKODOB: Community Number: [id number] Hospital [id number] Repository Date:[id number] [facility] [address]16[address], [place] [address]DR: 09/11/2018 Tertiary NOT GIVENUNK [place] Insurance:SELF PAY [facility] Number: Effective Repository Date:2018-08-30 09/02/2018 STEVIE Primary STEVIE [place] [id number] Insurance:MEDICARE VASICHKODOB: Community [place] BPolicy Number: [id number] [id number] Repository 29316Jzl: (330) Date:2018-09-02 [phone] () 09/02/2018 Secondary STEVIE [place] Insurance:AARPPolicy VASICHKODOB: Community Number: [id number] Hospital [id number] Repository Date:6093-87-43[address], [place] [address]QK: 09/02/2018 Tertiary NOT GIVENUNK [place] Insurance:SELF PAY [facility] Number: Effective Repository Date:2018-09-02 07/29/2018 STEVIE Primary STEVIE [place] [id number] Insurance:MEDICARE VASICHKODOB: Community [place] BPolicy Number: [id number] [id number] Repository 69681Atz: (330) Date:2018-07-29 [phone] () 07/29/2018 Secondary STEVIE [place] Insurance:AARPPolicy VASICHKODOB: Community Number: [id number] Hospital [id number] Repository Date:3108-13-39[address], [place] [address]PX: 07/29/2018 Tertiary NOT GIVENUNK [place] Insurance:SELF PAY [facility] Number: Effective Repository Date:2018-07-29 03/05/2018 STEVIE Primary STEVIE [place] [id number] Insurance:MEDICARE VASICHKODOB: Community [place] BPolicy Number: [id number], [place] [id number] Repository 33854Kdg: (330) Date:2017-08-21 [phone] () 03/05/2018 Secondary STEVIE [place] Insurance:AARPPolicy VASICHKODOB: Community Number: [id number] Hospital [id number] Repository Date:7398-93-02[address], [place] [address]HF: 03/05/2018 Tertiary NOT GIVENUNK [place] Insurance:SELF PAY [facility] Number: Effective Repository Date:2018-03-05 03/05/2018 STEVIE Primary STEVIE [place] [id number] Insurance:MEDICARE VASICHKODOB: Community [place] BPolicy Number: [id number], [place] [id number] Repository [address]Rvp: 330) Date:2018-03-05 [phone] (HP) 03/05/2018 Secondary STEVIE [place] Insurance:AARPPolicy VASICHKODOB: Community Number: [id number] Hospital [id number] Repository Date:0118-35-19XG [address], [place] [address]HJ: 03/05/2018 Tertiary NOT GIVENUNK [place] Insurance:SELF PAY [facility] Number: Effective Repository Date:2018-03-05 01/16/2018 STEVIE Primary STEVIE [place] [id number] Insurance:MEDICARE VASICHKODOB: Community [place] PART A BPolicy Number: [id number], [place] [id number] Repository 20727Nrh: Date:2017-12-19 ~33 0-2 (HP) 01/16/2018 Secondary STEVIE Kellen Insurance:AARPPolicy VASICHKODOB: Community Number: [id number] [facility] [id number] Repository Date:[id number], [place] [address]DD: 01/16/2018 Tertiary NOT GIVENUNK [place] Insurance:SELF PAY [facility] Number: Effective Repository Date:2017-12-19 12/24/2017 STEVIE Primary STEVIE Kellen [id number] Insurance:MEDICARE VASICHKODOB: Community [place] PART A BPolicy Number: [id number], [place] [id number] Repository 98812Eaw: Date:2017-12-24 ~33 0-2 (HP) 12/24/2017 Secondary STEVIE [place] Insurance:AARPPolicy VASICHKODOB: Community Number: [id number] Hospital [id number] Repository Date:9315-30-02[address], [place] [address]WE: 12/24/2017 Tertiary NOT GIVENUNK Kellen Insurance:SELF PAY [facility] Number: Effective Repository Date:2017-12-24 12/13/2017 STEVIE Primary STEVIE [place] [id number] Insurance:MEDICARE VASICHKODOB: Community [place] PART A BPolicy Number: [id number], [place] [id number] Repository 51628Cpw: Date:2017-12-13 ~33 0-2 (HP) 12/13/2017 Secondary STEVIE [place] Insurance:AARPPolicy VASICHKODOB: Community Number: [id number] Hospital [id number] Repository Date:1592-81-98[address], [place] [address]JY: 12/13/2017 Tertiary NOT GIVENUNK [place] Insurance:SELF PAY [facility]: Effective Repository Date:2017-12-13 11/20/2017 STEVIE Primary STEVIE Kellen [id number] Insurance:MEDICARE VASICHKODOB: Community [place] PART A BPolicy Number: [id number], [place] [id number] Repository 04989Moe: Date:2017-11-09 ~33 0-2 (HP) 11/20/2017 Secondary STEVIE [place] Insurance:AARPPolicy VASICHKODOB: Community Number: [id number] [facility] [id number] Repository Date:7560-13-69RZ [address]LMVQHEG, [place] [address]YX: 11/20/2017 Tertiary NOT GIVENUNK [place] Insurance:SELF PAY [facility] Number: Effective Repository Date:2017-11-09 11/07/2017 STEVIE Primary STEVIE Kellen [id number] Insurance:MEDICARE VASICHKODOB: Community [place] PART A BPolicy Number: [id number], [place] [id number] Repository 31515Ojl: Date:2017-08-21 ~33 0-2 (HP) 11/07/2017 Secondary STEVIE [place] Insurance:AARPPolicy VASICHKODOB: Community Number: [id number] Hospital [id number] Repository Date:2240-37-77AW [facility] [address]QP[place], [place] [address]HV: 11/07/2017 Tertiary NOT GIVENUNK Kellen Insurance:SELF PAY [facility] Number: Effective Repository Date:2017-08-21 11/07/2017 STEVIE Primary STEVIE Kellen [id number] Insurance:MEDICARE VASICHKODOB: Community [place] A BPolicy Number: [id number], [place] [id number] Repository [address]Nmd: Date:2017-11-07 ~33 0-2 (HP) 11/07/2017 Secondary STEVIE Kellen Insurance:AARPPolicy VASICHKODOB: Community Number: [id number] [facility] [id number] Repository Date:2122-97-91[address], [place] [address]FO: 11/07/2017 Tertiary NOT GIVENUNK [place] Insurance:SELF PAY [facility] Number: Effective Repository Date:2017-11-07 10/26/2017 QUYEN Primary QUYEN [facility] VASICHKODOB: Insurance:MEDICARE A VASICHKODOB: Health System AND BPolicy Number: [id number] [id number] [place] Date: [address]Jti: (HP) 10/26/2017 Secondary QUYEN [facility] Insurance:[facility] AARP VASICHKODOB: Health [facility] [id number] Repository Number: [id number] Date: 10/18/2017 QUYEN Burdick Primary QUYEN [id number] Insurance:MEDICARE VASICHKODOB: Community [place] PART A BPolicy Number: [id number][place] [id number] Repository 85[address]Nag: Date:2017-10-04 ~33 0-2 (HP) 10/18/2017 Secondary STEVIE [place] Insurance:AARPPolicy VASICHKODOB: Community Number: [id number] [facility] [id number] Repository Date:6717-38-09UR [address]QVWLPIW, [place] [address]DF: 10/18/2017 Tertiary NOT GIVENUNK Kellen Insurance:SELF PAY [facility] Number: Effective Repository Date:2017-10-04 10/01/2017 STEVIE Primary STEVIEHeavenly [id number] Insurance:MEDICARE VASICHKODOB: Community [place] PART A BPolicy Number: [id number], [place] [id number] Repository [address]Inj: Date:2017-10-01 ~33 0-2 (HP) 10/01/2017 Secondary QUYEN Foreman Insurance:AARPPolicy VASICHKODOB: Community Number: [id number] [id number] Repository Date:5974-19-65CB [address], [place] [address]BW: 10/01/2017 Tertiary NOT GIVENUNK Kellen Insurance:SELF PAY [facility] Number: Effective Repository Date:2017-10-01
== END ==
PROVIDERS: Family Provider Family Medicine; PCP Family Medicine; Referring Provider Surgery Vascular Surgery; Visit Provider Surgery Vascular Surgery
DX: I65.23 Occlusion and stenosis of bilateral carotid arteries (principal)
CPT/HCPCS: 93880

== ENCOUNTER → 2018-09-23 08:44 | Outpatient (CLI) | payer MEDICARE, OTHER, SELFPAY ==
[2018-09-12 13:07] VITALS: BMI 38.4
--- NOTE | 2018-09-23 08:44 | ECHOCS_ITS ---
Reason For Study: Afib/Flutter Procedure This was a 2D Doppler, Color Flow transthoracic echocardiogram. Technically difficult due to body habitus, contrast performed. Exam performed in department. Left Ventricle Normal LV size. Left ventricular systolic function is normal. The estimated ejection fraction is 65 %. Diastolic function is indeterminate. No regional wall motion abnormalities noted. Right Ventricle Normal RV size. Normal systolic function. Atria Normal left atrium. Normal right atrium. Mitral Valve Normal mitral valve. Tricuspid Valve Normal tricuspid valve. Mild tricuspid valve insufficiency. Pulmonary artery systolic pressure is 31 mmHg. Aortic Valve Trisinus/trileaflet aortic valve. Pulmonic Valve Normal pulmonic valve. Great Vessels Normal aortic root. The pulmonary artery is normal size. Normal inferior vena cava. Pericardium/Pleural No pericardial effusion. Medication 20 gauge I.V. with prn adaptor inserted into right arm. Diluted definity 5ml given slow IV push to enhance endocardial definition. MMode/2D Measurements & Calculations LVIDd: 3.9 cm IVSd: 1.1 cm Ao root diam: 3.4 cm LVIDs: 2.6 cm LVPWd: 1.0 cm LA dimension: 4.1 cm RVDd: 3.8 cm FS: 33.9 % LAV(MOD-bp): 66.5 ml LA A4 area: 21.9 cm2 RA A4 area: 21.2 cm2 LAV(MOD-bp) Indexed: 33.2 ml/m2 LAV(MOD-sp2): 57.6 ml LAV(MOD-sp4): 63.2 ml Time Measurements MV dec time: 0.19 sec Doppler Measurements & Calculations MV E max saundra: 97.2 cm/sec Ao V2 max: 104.4 cm/sec LV V1 max: 75.9 cm/sec Ao max P.4 mmHg LV V1 max P.3 mmHg Ao V2 mean: 67.7 cm/sec LV V1 mean P.96 mmHg Ao mean P.1 mmHg LV V1 mean: 43.9 cm/sec Ao V2 VTI: 19.4 cm LV V1 VTI: 13.4 cm MR max saundra: 489.2 cm/sec PA V2 max: 69.9 cm/sec TR max saundra: 262.4 cm/sec MR max P.7 mmHg TR max P.5 mmHg Interpretation Summary Normal LV size. Left ventricular systolic function is normal. The estimated ejection fraction is 65 %. Diastolic function is indeterminate. Pulmonary artery systolic pressure is 31 mmHg. Contrast injection was performed. Ordering Physician: Roland Cage Referring Physician: Vernon Rosa Performed By: Sandro Kelly RCS
== END ==
PROVIDERS: Family Provider Family Medicine; PCP Family Medicine; Referring Provider Internal Medicine Cardiovascular Disease; Visit Provider Internal Medicine Cardiovascular Disease
DX: I34.0 Nonrheumatic mitral (valve) insufficiency (principal)
CPT/HCPCS: 93306; Q9957; A4216; C8929

== ENCOUNTER → 2018-12-02 | Outpatient (CLI) | payer MEDICARE, OTHER, SELFPAY ==
[2018-09-12 13:07] VITALS: BMI 38.4
--- NOTE | 2018-12-02 12:27 | RAD_ITS ---
STUDY: X-RAY CHEST REASON FOR EXAM: Female, 78 years old. Chest pain/pressure TECHNIQUE: PA and lateral views of the chest. COMPARISON: 07/29/2018 FINDINGS: Stable appearance of a right subclavian port There are interstitial fibrotic changes of the lungs. There is no demonstrated pleural abnormality. Sternal cerclage wires and vascular clips are present from a prior sternotomy and coronary artery bypass graft procedure (CABG). Normal mediastinum and vivek. Normal visualized pulmonary arteries. There is atherosclerotic calcification of the aortic arch with tortuosity. There are diffuse degenerative changes of the visualized thoracic spine. Normal visualized ribs, clavicles, and shoulders. There is no demonstrated abnormality of the visualized soft tissue structures of the upper abdomen. RAD/Chest PA and Lateral IMPRESSION: Degenerative changes, as described above. No demonstrated acute cardiopulmonary process. Electronically Signed: Kain Hernandez MD at 12:40 EDT , Service support ,
== END | disposition home or self-care (01) ==
LOC: MTRAD 12:26
PROVIDERS: Family Provider Family Medicine; PCP Family Medicine; Referring Provider Internal Medicine Pulmonary Disease; Visit Provider Internal Medicine Pulmonary Disease
DX: Z87.09 Personal history of other diseases of the respiratory system (principal)
CPT/HCPCS: 71046

== ENCOUNTER 2018-12-23 22:26 | Inpatient (IN) | payer MEDICARE, OTHER, SELFPAY ==
[2018-09-12 13:07] VITALS: BMI 38.4
[2018-12-23 22:27] VITALS: BP 131/68; RESP 19; TEMP 36.8; O2SAT 100; BMI 41.1
[2018-12-23 22:49] VITALS: PULSE 96; RESP 24; O2SAT 100
--- NOTE | 2018-12-23 22:49 | RAD_ITS ---
STUDY: X-RAY CHEST REASON FOR EXAM: Female, 78 years old. Shortness of breath. TECHNIQUE: Single AP portable view of the chest. COMPARISON: December 02, 2018. FINDINGS: Stable right subclavian Port-A-Cath. The lungs are well expanded. Again seen is a nodular density at the right lung base. There is a question of a small right pleural effusion on the current exam. Sternal cerclage wires are present from a prior sternotomy. Heart is normal in size Normal mediastinum and vivek. Normal visualized pulmonary arteries. There is atherosclerotic calcification of the aortic arch with tortuosity. There is mild dextroscoliosis of the thoracic spine There is degenerative osteoarthritis of the bilateral shoulders. There is no demonstrated abnormality of the visualized soft tissue structures of the upper abdomen. RAD/Chest 1 View (Portable) IMPRESSION: Probable old granuloma at the right lung base. There is no acute cardiopulmonary disease or major interval change. Electronically Signed: Darryl Perez DO at 23:21 EDT Tel [phone], Service support ,
--- NOTE | 2018-12-23 22:50 | EKG12_ITS ---
Test Reason : SOB Blood Pressure : / mmHG Vent. Rate : 086 BPM Atrial Rate : 079 BPM P-R Int : 000 ms QRS Dur : 072 ms QT Int : 338 ms P-R-T Axes : 000 -35 040 degrees QTc Int : 404 ms Atrial fibrillation Left axis deviation Low voltage QRS Septal infarct , age undetermined Abnormal ECG Confirmed by SELINA CARVAJAL, ROCAEL ([id number]), publishing editor EBONY BONDS ([id number]) on 12/26/2018 9:09:35 AM Referred By: ANDREA Confirmed By:ROCAEL MARKS MD
[2018-12-23 23:13] LABS: Absolute Neutrophil Count 4.8 X10^3/uL (2.0-7.7); Basophil# 0.02 X10^3/uL; Basophil% 0.3 % (0-1); Eosinophil# 0.21 X10^3/uL; Eosinophils% 2.7 % (0-5); Hematocrit 27.5 % (37-47); Hemoglobin 8.7 g/dl (12.0-15.0); Mean Corp Hgb Conc 31.6 g/gl (32-36); Mean Corpuscular Hgb 29.9 pg (27.0-32.0); Mean Corpuscular Volume 94.5 fL (81-99); Mean Platelet Vol. 9.4 fl (6.2-12.0); Monocyte# 1.26 X10^3/uL; Monocyte% 16.4 % (0-10); Neutrophil # 4.76 X10^3/uL (2.7-7.7); Neutrophil % 62.2 % (47-70); Platelet Count 342 K/mm3 (150-450); Red Blood Count 2.91 M/mm3 (4.2-5.4); White Blood Count 7.7 K/mm3 (4.4-11.0)
[2018-12-23 23:14] LABS: POSITIVE COUNT NO; POSITIVE DIFFERENTIAL NO; POSITIVE MORPHOLOGY NO
[2018-12-23 23:21] LABS: Allen Test POS; Base Excess 1 mmol/L (-2 to +2); Bicarbonate 24.6 mmol/L (22-26); Blood Gas Specimen Type ART; EPAP 10; FI02 21; PO2 77 mmHG (75-100); RR 12; SITE L Radial; SO2 96 % (95-99); Time Given 2310; Total Carbon Dioxide 26 mmol/L; pCO2 34.6 mmHg (35-45); pH 7.46 (7.35-7.45)
[2018-12-23 23:35] LABS: ALB/GLOB Ratio 0.9 RATIO (0.9-2.4); AST(SGOT) 40 U/L (15-37); Alanine Aminotransfer ALT/SGPT 29 U/L (13-56); Albumin, Serum 2.5 g/dL (3.2-5.0); Alkaline Phosphatase 387 U/L (45-117); Anion Gap 5 (5-15); BUN 10 mg/dL (7-18); BUN/Creat Ratio 14.4 RATIO (10-20); Calcium,Total 7.9 mg/dL (8.5-10.1); Chloride 107 mmol/L (98-107); Creatinine, Serum 0.69 mg/dL (0.55-1.02); EST Glomerular Filtration Rate 87 mL/min (>60); Est Glom Filt Rate - Afr Amer 106 mL/min (>60); Estimated Creatinine Clearance 39.59 ml/min; Globulin 2.9 g/dL (2.2-4.2); Glucose 86 mg/dL (74-106); Potassium 3.5 mmol/L (3.5-5.1); Protein, Total 5.4 g/dL (6.4-8.2); Sodium Level 140 mmol/L (136-145)
[2018-12-23 23:46] LABS: BNP,B-Type NATRIURETIC PEPTIDE 151.6 pg/mL (0-100)
[2018-12-23 23:48] VITALS: O2SAT 98
[2018-12-23 23:56] VITALS: BP 129/70; PULSE 95; RESP 25; O2SAT 98
[2018-12-24] VITALS (15 sets, daily range): BP systolic 125–144; BP diastolic 65–72; PULSE 70–110; RESP 16–24; TEMP 36.6–37; O2SAT 96–99; BMI 38.8
--- NOTE | 2018-12-24 02:08 | ED.DCSUM_ITS ---
- ER Visit Summary Date of Service: 12/24/18 Chief Complaint: Shortness of breath History of Present Illness: The patient is a 78 F who presents with shortness of breath. She has a history of metastatic colon cancer, coronary disease, prior CABG cardiac cath and stents. She has had colon resections and liver resections. She had recurrent liver mass and had a liver resection in [place] on December 13. She has had some mild shortness of breath ever since surgery but this is been worse the last couple of nights. She complains of increasing dyspnea on exertion as well as increasing lower extremity edema. She has a chronic cough which is occasionally productive. No fevers. She denies any pain. Her abdominal pain postoperatively is well controlled. Physical Examination: Afebrile vitals normal No distress Moist mucous membranes Heart regular rate and rhythm Lungs are clear I do not appreciate rales rhonchi or wheezes Abdomen is soft she has some mild tenderness but incision is clean dry and intact Alert Pitting symmetric lower extremity edema Test Results: EKG shows atrial fibrillation at a rate of 86. Labs are notable for hemoglobin 8.7. Alkaline phosphatase 387. BNP mildly elevated at 151. Troponin is negative. ABG is unremarkable. Chest x-ray read as probable old granulomata right lung base no acute disease. CTA of the chest shows no evidence of pulmonary embolism but does show a small to moderate right pleural effusion, mild left pleural effusion, left upper lobe nodule. Emergency Department Course and Treatment: Patient underwent the above evaluation. Given that she does have pleural effusions increased edema increasing shortness of breath she was given IV Lasix. Patient discussed with the hospitalist and admitted Treatment Plan: [] Disposition: Adamant Impression: CHF Metastatic colon cancer This note was generated with [employer] Interactive dictation software. It may contain incorrect words, spelling, and punctuation that were not noted in review of the chart prior to signing ED Disposition - Plan for ED Patient: Referrals: Vernon Rosa MD [Primary Care Provider] -
--- NOTE | 2018-12-24 02:11 | HP.PCM_ITS ---
Problem List (1) Pleural effusion Status: Acute History of Present Illness Date of Admission: 12/24/18 Chief Complaint: shortness of breath The patient is a 78 year old F hypertension; CHAU on CPAP; breast cancer; colon cancer metastasized to the liver status post colon resection and liver resection x2; CAD status post CABG; atrial fibrillation; lung nodules who presented to the emergency department with progressively worsening shortness of breath with moderate exertion. Patient feels that from her abdomen downwards is swollen. Patient had his last liver mass resection on December 13, 2018 at [facility]. Chest CT in emergency department showed small to moderate right pleural effusion and small left pleural effusion. Also noted was left upper lobe 0.9 cm irregular nodule; right lower lobe calcified granuloma in the right hilar 1.5 cm nonspecific lymph nodes. Patient received Lasix at emergency department. Her family wanted patient to be considered for outpatient rehab since her aging cannot take care of her at home. Patient uses home CPAP to sleep at nights. Recently he has been using the CPAP as needed to help with her breathing. Past Medical History Past Medical History (Chronic Problems): Chronic Problems (Last Reviewed 12/24/18 @ 04:12 by Lalo Reveles MD) Nonrheumatic mitral (valve) insufficiency (Chronic) Non-rheumatic tricuspid valve insufficiency (Chronic) History of coronary artery stent placement (Chronic 12/04/13) PCI-HARRIS-Cx w/ 2.5 x 16 mm Promus Premier and POBA-Prox LAD 12/04/13 Atherosclerosis of coronary artery without angina pectoris (Chronic) CABG x 2 [place] to D2, SVG to RCA 02/13/2012 H/O coronary artery bypass surgery (Chronic 02/13/12) CABG x 2 [place] to D2, SVG to RCA 02/13/2012 HTN (hypertension) (Chronic) Old myocardial infarction (Chronic) Persistent atrial fibrillation (Chronic) Hypomagnesemia (Chronic) Anemia of chronic disorder (Chronic) Carotid artery stenosis (Chronic) Hyperlipidemia (Chronic) Diabetes mellitus, type II (Chronic) Obesity (BMI 30-39.9) (Chronic) Adenocarcinoma of colon (Chronic) Breast cancer (Chronic) Colon cancer metastasized to liver (Chronic) Medical History: Medical History (Last Reviewed 12/24/18 @ 07:37 by Lalo Reveles MD) Nonrheumatic mitral (valve) insufficiency (Chronic) I34.0 Non-rheumatic tricuspid valve insufficiency (Chronic) I36.1 Atherosclerosis of coronary artery without angina pectoris (Chronic) I25.10 CABG x 2 [place] to D2, SVG to RCA 02/13/2012 HTN (hypertension) (Chronic) I10 Old myocardial infarction (Chronic) I25.2 Persistent atrial fibrillation (Chronic) I48.1 Hypomagnesemia (Chronic) E83.42 Anemia of chronic disorder (Chronic) D63.8 Carotid artery stenosis (Chronic) I65.29 Hyperlipidemia (Chronic) E78.5 Diabetes mellitus, type II (Chronic) E11.9 Obesity (BMI 30-39.9) (Chronic) E66.9 Adenocarcinoma of colon (Chronic) C18.9 Breast cancer (Chronic) C50.919 Colon cancer metastasized to liver (Chronic) C18.9, C78.7 History of hysterectomy Z98.890, Z90.710 Palpitations (Inactive) R00.2 Allergies hunt Allergy (Verified 12/23/18 22:32) Shortness of breath nadolol [From Corgard] Allergy (Verified 12/23/18 22:32) Hives Penicillins Allergy (Verified 12/23/18 22:32) Hives pitavastatin [From Livalo] Allergy (Verified 12/23/18 22:32) myalgia pravastatin sodium [From Pravachol] Allergy (Verified 12/23/18 22:32) Hives sulfite Allergy (Verified 12/23/18 22:32) Hives atorvastatin calcium [From Lipitor] Adverse Reaction (Verified 12/23/18 22:32) Pain in joints morphine Adverse Reaction (Verified 12/23/18 22:32) chest pain CHEST PAINS AND SOB Home Medications: Ambulatory Orders Medication Instructions Recorded Aspirin 81 mg PO DAILY 01/03/17 Cholecalciferol (Vitamin D3) 4,000 unit PO DAILY 01/03/17 [Vitamin D3] Mometasone Furoate [Asmanex 220 2 puff INHALATION DAILY 01/03/17 mcg Twisthaler] diphenhydramine 25 mg capsule 50 mg PO PRN PRN 0 Days 08/17/17 epinephrine 0.3 mg/0.3 mL 0.3 ml SC PRN PRN 1 Days #2 ea 08/17/17 injection, auto-injector hydrocortisone 2.5 % topical cream 1 applic TOPICAL TID PRN PRN 10 12/22/17 Days #30 montelukast 10 mg tablet 10 mg PO QDAY PRN tab 08/17/17 magnesium oxide 400 mg (241.3 mg 400 mg PO BID #180 tab 08/21/17 magnesium) tablet nitroglycerin 0.4 mg sublingual 0.4 mg SUBLINGUAL Q5M PRN #25 tab 08/21/17 tablet Potassium Chloride [Klor-Con M20] 20 meq PO DAILY 10/01/17 furosemide 40 mg tablet 40 mg PO QDAY #90 tab 03/07/18 rivaroxaban 15 mg tablet 15 mg PO QDAY #90 tab 03/07/18 Glimepiride [Amaryl] 1 tab PO DAILY 07/29/18 isosorbide mononitrate ER 60 mg 60 mg PO DAILY #90 tab 08/28/18 tablet,extended release 24 hr lisinopril 10 mg tablet 10 mg PO DAILY #90 tab 08/28/18 simvastatin 20 mg tablet 20 mg PO QHS #90 tab 08/28/18 Metoprolol Tartrate 50 mg PO BID 12/23/18 Omeprazole 40 mg PO DAILY 12/23/18 Surgical History: Surgical History (Last Reviewed 12/24/18 @ 07:37 by Lalo Reveles MD) History of coronary artery stent placement (Chronic) Onset Date: 12/04/13 Z95.5 PCI-HARRIS-Cx w/ 2.5 x 16 mm Promus Premier and POBA-Prox LAD 12/04/13 H/O coronary artery bypass surgery (Chronic) Onset Date: 02/13/12 Z95.1 CABG x 2 [place] to D2, SVG to RCA 02/13/2012 History of colectomy Z90.49 History of left-sided carotid endarterectomy Onset Date: 02/07/13 Z98.890 Hx of resection of liver Z98.890, Z90.49 History of appendectomy Z98.890, Z90.49 Surgical History: coronary bypass surgery, - - L CEA, T+A, Hysterectomy, Tongue surgery. lvier met surgery,colon cancer, left port. 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 CIRCUIT DESIGNER history Lives: Spouse/ Significant Other Smoking Status: Never smoker Alcohol: None - *Family History Maternal Family History: Family History (Last Reviewed 12/24/18 @ 07:37 by Lalo Reveles MD) Father CAD (coronary artery disease) Myocardial infarction, Onset Age: 45 Brother CAD (coronary artery disease) Myocardial infarction, Onset Age: 65 Mother Atrial fibrillation CHF (congestive heart failure) Pacemaker Sister Atrial fibrillation, Onset Age: 55 History Items: No pertinent history Paternal Family History: Family History (Last Reviewed 12/24/18 @ 07:37 by Lalo Reveles MD) Father CAD (coronary artery disease) Myocardial infarction, Onset Age: 45 Brother CAD (coronary artery disease) Myocardial infarction, Onset Age: 65 Mother Atrial fibrillation CHF (congestive heart failure) Pacemaker Sister Atrial fibrillation, Onset Age: 55 History Items: No pertinent history Review of Systems Constitutional: Denies: Chills, Fever, Weight Change HEENT: Denies: Head Aches, Sinus Congestion, Sinus Drainage Cardiovascular: Reports: Edema. Denies: Chest Pain, Palpitations Respiratory: Reports: Cough - chronic, Shortness of breath upon exertion, Sputum production - chronic Gastrointestinal: Denies: Abdominal Pain, Nausea, Vomiting Genitourinary: Denies: Dysuria Musculoskeletal: Denies: Joint Pain, Joint Tenderness Skin: Denies: Rash, Wounds Neurological: Denies: Numbness, Tingling, Focal weakness Psychiatric: Denies: Anxiety, Depression, Homicidal Ideations, Suicidal Ideations Hematologic/ Lymphatic: Denies: Easy Bruising, Easy Bleeding VTE Information - Inpt Only VTE Present on Admission: No VTE Mechan Device Prophylaxis: SCD's VTE Pharm Prophylaxis ordered?: No Patient Problems: Active and Suspected Problems (Last Reviewed 12/24/18 @ 04:12 by Lalo Reveles MD) Pleural effusion (Acute) - Physical Exam General: Alert, Oriented x3, Cooperative HEENT: Atraumatic, PERRLA, EOMI, Normocephalic Neck: Supple, No JVD, Negative Carotid Bruits Lungs: Normal air movement, Diminished - Right lower lung field, Tachypneic Cardiovascular: Regular rate, No murmurs Abdomen: Bowel Sounds Present, Soft, Non Tender, - - Abdominal incision at right side of abdomen with nupur in place and with 4 x 4 at lateral side. Extremities: Capillary Refill Less than 3 Seconds, Edema - bilateral lower extremities Skin: No rashes, No breakdown Musculoskeletal: No Tenderness to Palpation of Joints or Extremities Neurological: Neuro grossly intact Psych/Mental Status: Normal Affect, Appropriate Vital Signs Temp Pulse Resp BP Pulse Ox 98.3 F 95 22 H 125/69 H 96 12/23/18 22:27 12/24/18 02:06 12/24/18 02:06 12/24/18 02:06 12/24/18 02:06 Oxygen Delivery Method Room Air Weight: 105.2 kg Body Mass Index (BMI) 41.1 Finger Stick Blood Glucose 126 Laboratory Tests Past 24 Hrs 12/23/18 12/23/18 12/23/18 23:00 23:00 23:00 WBC 7.7 RBC 2.91 L Hgb 8.7 L Hct 27.5 L MCV 94.5 MCH 29.9 MCHC 31.6 L RDW 18.0 H RDW Differential 63.0 H Plt Count 342 MPV 9.4 Immature Gran % (Auto) 1.400 H Neut % (Auto) 62.2 Lymph % (Auto) 17.0 L [place] % (Auto) 16.4 H Eos % (Auto) 2.7 Baso % (Auto) 0.3 Absolute Neuts (auto) 4.8 Absolute Lymphs (auto) 1.30 Total Counted Not Reportable Specimen Type Sample Site pH Bicarbonate Actual POC Total CO2 Base Excess O2 Saturation O2 % ABG pCO2 ABG pO2 Roni Test Respiration Rate O2 Delivery Device EPAP Blood Gas Notified Whom Blood Gas Notified Time Sodium 140 Potassium 3.5 Chloride 107 Carbon Dioxide 28.0 Anion Gap 5 BUN 10 Creatinine 0.69 Estim Creat Clear Calc 39.59 Est GFR (MDRD) Af Amer 106 Est GFR (MDRD) Non-Af 87 BUN/Creatinine Ratio 14.4 Glucose 86 Calcium 7.9 L Total Bilirubin 0.50 AST 40 H ALT 29 Alkaline Phosphatase 387 H Troponin I < 0.015 B-Natriuretic Peptide 151.6 H Total Protein 5.4 L Albumin 2.5 L Globulin 2.9 Albumin/Globulin Ratio 0.9 12/23/18 23:13 WBC RBC Hgb Hct MCV MCH MCHC RDW RDW Differential Plt Count MPV Immature Gran % (Auto) Neut % (Auto) Lymph % (Auto) [place] % (Auto) Eos % (Auto) Baso % (Auto) Absolute Neuts (auto) Absolute Lymphs (auto) Total Counted Specimen Type ART Sample Site L Radial pH 7.46 H Bicarbonate Actual 24.6 POC Total CO2 26 Base Excess 1 O2 Saturation 96 O2 % 21 ABG pCO2 34.6 L ABG pO2 77 Roni Test POS Respiration Rate 12 O2 Delivery Device Bi / C PAP EPAP 10 Blood Gas Notified Whom ED Blood Gas Notified Time 2310 Sodium Potassium Chloride Carbon Dioxide Anion Gap BUN Creatinine Estim Creat Clear Calc Est GFR (MDRD) Af Amer Est GFR (MDRD) Non-Af BUN/Creatinine Ratio Glucose Calcium Total Bilirubin AST ALT Alkaline Phosphatase Troponin I B-Natriuretic Peptide Total Protein Albumin Globulin Albumin/Globulin Ratio Assessment/Plan All Active Problems (Last Reviewed 12/24/18 @ 04:12 by Lalo Reveles MD) Pleural effusion (Acute) The patient is a 78 year old F hypertension; breast cancer; colon cancer metastasized to the liver status post colon resection and liver resection x2; CAD status post CABG; atrial fibrillation; lung nodules who presented to the emergency department with progressively worsening shortness of breath with moderate exertion; and found to have radiographic evidence of small to moderate right pleural effusion and small left pleural effusion and pulmonary nodules. Pleural effusion Chest CTA in emergency department showed small to moderate right pleural effusion and small left pleural effusion. Also noted was left upper lobe 0.9 cm irregular nodule; right lower lobe calcified granuloma in the right hilar 1.5 cm nonspecific lymph nodes. CTA was independently reviewed. I agree with radiologist interpretation. Chest x-ray showed probable old granuloma along the right lung base; and bilateral pleural effusion. Review of old records: Echocardiogram on 09/23/2018 showed estimated ejection fraction of 65%. Diastolic function was indeterminate. There was mild tricuspid valve insufficiency. Pulmonary artery systolic pressure was 31. Differential diagnosis includes heart failure with preserved ejection fraction; malignant pleural effusion. Patient is supposed to have outpatient cardiology visit with cardiology nurse practitioner at Dr. Cage's office at 12/25/18. Nursing communication to cancel appointment with cardiology office. Consider discussing the case with Cardiology. Patient is on home Lasix p.o. Patient received Lasix 40 mg IV in emergency department. Continue Lasix 40 mg IV x1 for now. Potassium supplementation ordered. We will hold home aspirin and Xarelto for now. Consider discussing the case with patient's extension edger, Dr. Zamudio and oncologist Dr. Vasquez for consideration for thoracentesis to rule out malignant pleural effusion. Of note, when patient had her first liver resection she developed clots. PT and OT to work with patients and make appropriate recommendation. Patient is looking forward to going to Rehab Paroxysmal A. fib The patient on sinus rhythm at a time of evaluation. Placed on PCU on telemetry. Metoprolol continued Xarelto held because patient may need thoracentesis. GERD Omeprazole continued CAD status post CABG Simvastatin continued Aspirin held for probable paracentesis Imdur continued Lisinopril continued Metoprolol continue Hypertension On presentation her blood pressure was stable in regard to age. Imdur, metoprolol and, lisinopril continued Trend blood pressure and adjust blood pressure medication. Diabetes mellitus On presentation her glucose on BMP was 86. Patient is at risk of hypoglycemia. Would hold home glimepiride and put on a q. before meals at bedtime fingersticks with correction scale insulin. Obstructive sleep apnea CPAP nightly and as needed. DVT prophylaxis SCDs Code Visit Inpatient E&M: 85519 Init Hosp L3
[2018-12-24] MEDS: Furosemide 40 MG/4 ML Vial IV (02:18)
[2018-12-24] MEDS: 0.9% NaCl VAD Flush 10 ML IV ×2 (05:50→05:55)
[2018-12-24 06:25] LABS: Anion Gap 9 (5-15); BUN 9 mg/dL (7-18); BUN/Creat Ratio 13.9 RATIO (10-20); Calcium,Total 8.1 mg/dL (8.5-10.1); Chloride 105 mmol/L (98-107); Creatinine, Serum 0.65 mg/dL (0.55-1.02); EST Glomerular Filtration Rate 95 mL/min (>60); Est Glom Filt Rate - Afr Amer 115 mL/min (>60); Estimated Creatinine Clearance 39.59 ml/min; Glucose 78 mg/dL (74-106); Potassium 3.2 mmol/L (3.5-5.1); Sodium Level 142 mmol/L (136-145)
[2018-12-24] MEDS: Acetaminophen 500 MG Tablet PO ×3 (06:30→20:10)
[2018-12-24 06:41] LABS: Bedside Glucose 85 mg/dL (70-110)
[2018-12-24] MEDS: Budesonide Respules 0.5 MG/2 ML AMPUL.NEB. INHALATION ×2 (07:33→18:52)
[2018-12-24] MEDS: Metoprolol Tartrate 50 MG Tablet PO ×2 (09:51→20:03)
[2018-12-24] MEDS: Pantoprazole Sodium 40 MG Tablet PO (09:51)
[2018-12-24] MEDS: Lisinopril 10 MG Tablet PO (09:51)
[2018-12-24] MEDS: Isosorbide Mononitrate 60 MG Tablet PO (09:52)
[2018-12-24] MEDS: Magnesium Oxide 400 MG Tablet PO ×2 (09:52→20:03)
--- NOTE | 2018-12-24 09:58 | NURSING ---
wound photo: right abdomen
--- NOTE | 2018-12-24 10:05 | CASEMGMT ---
JOANN WHITFIELD assessment: Face to Face with patient for initial transition planning/care coordination assessment. JOANN WHITFIELD introduced self and role at [facility], pt voices understanding and consents to assessment at this time. Pt is sitting up in chair in no distress at this time. Pt is A/Ox4 at this time and answers all questions appropriately at this time. Pt's and daughter at bedside at this time. Pt is hard of hearing. Care providers, pharmacy, and demographics verified at this time. PCP: Vernon Rosa Specialists: Roberta pulm; Pedro, onc; Niles, cardio; Evelyn, pod; Juan, liver surg at [facility] Preferred Pharmacy: [facility] Insurance: [facility] A/B, AARP Prescription Benefit: [facility] Living Will/HPOA: Pt has LW/HPOA and they are currently on file at [facility] at this time. Pt states her , Vernon Foote, is HPOA. LNOK: Vernon Foote, ; Bryan Foote, son; Juliette Ruiz, daughter Living Arrangements: Pt states lives with in 1 story home and states has been struggling at home with sob/weakness since discharge from [facility] last 12/20/18. Transportation: Pt states she drives or drives and states no transportation concerns at this time. DME/HHC: Pt states has the following DME: walker, grab bars, shower benches, and cpap thru [employer]. Pt also has ramp into home. Pt states no need for any further DME at this time. states that pt was set up with [facility] upon leaving [facility] but they were supposed to do start of care today and cannot remember name of [facility] at this time but states that he did contact them regarding pt admission. Pt has been to TCU in the past and states she would like to go back to TCU upon discharge. Referral to Renu PILLAI for TCU placement at this time, voices understanding. Pt states there is no current cancer treatment plans set up at this time and she states that she spent over a week admitted at [facility] last week. Pt's agrees to TCU placement at this time and states that he has been having difficulty caring for pt at home since discharge last sunday. Pt is retired. Pt states that she does not smoke or drink ETOH. Pt states no further concerns/needs at this time. CM to follow for any further discharge planning/needs. Advised pt to ask for CM if any further questions/concerns/needs arise, voices understanding. Pt Goal: TCU Plan: TCU, pending available bed. Irina DAVID CM
--- NOTE | 2018-12-24 10:18 | CASEMGMT ---
Per RN CM patient patient would like to go to TCU. SW called Aubrie in TCU and left her a voice mail with referral. Await return call. Patient was in [facility] for a week so she already has a qualifying stay. Mariah ARGUETA MSW
--- NOTE | 2018-12-24 10:45 | CASEMGMT ---
Patient has a Healthcare POA and Healthcare LW on file. Mariah ARGUETA INDUSTRIAL MACHINE ASSEMBLER
[2018-12-24 12:10] LABS: Bedside Glucose 112 mg/dL (70-110)
--- NOTE | 2018-12-24 13:39 | CASEMGMT ---
FREYA spoke with Cindy and she said there will not be a bed in TCU until possibly Sunday. SW then spoke with physician and she does not think patient will be here until Sunday. FREYA spoke with patient and her family and explained there are no TCU beds. SW gave them a list and they would like SW to try [facility] [place]. SW explained SW will keep her name on the TCU list in case a bed opens up. They thanked FREYA as TCU is their [facility]st choice and [facility]. FREYA will work on referral to [facility]. Mariah ARGUETA GRADUATE ASSISTANT
[2018-12-24 17:06] LABS: Bedside Glucose 103 mg/dL (70-110)
--- NOTE | 2018-12-24 17:14 | PCM.PN.HOSP ---
Patient Problems: Active and Suspected Problems (Last Reviewed 12/24/18 @ 07:37 by Lalo Reveles MD) Pleural effusion (Acute) Subjective: Patient was seen and examined. She denied any chest pain or dizziness or shortness of breath. Off oxygen. She has been off Xarelto since Sunday night Vitals/I&O's: Vital Signs Temp Pulse Resp BP Pulse Ox 98.6 F 78 16 126/72 H 96 12/24/18 14:50 12/24/18 14:50 12/24/18 14:50 12/24/18 14:50 12/24/18 14:50 Oxygen Delivery Method Room Air Weight: 101 kg Body Mass Index (BMI) 38.8 Finger Stick Blood Glucose 126 Intake and Output for Last 24 Hours 12/22/18 12/23/18 12/24/18 23:59 23:59 23:59 Intake Total 720 / 720 Balance 720 / 720 General: Alert, Oriented x3, Cooperative, No apparent distress, - HEENT: Atraumatic, PERRLA, EOMI, Normocephalic Oral: Moist Mucosa - On oxygen, appears very comfortable Neck: Supple, No JVD, Negative Carotid Bruits Lungs: Normal air movement, Diminished Cardiovascular: Regular rate, Regular Rhythm, Normal S1, Normal S2, No murmurs Abdomen: Bowel Sounds Present, Soft, Non Tender, Non-Distended, No Hepato-splenomegaly Extremities: No edema Skin: No rashes Musculoskeletal: No Tenderness to Palpation of Joints or Extremities Neurological: Cranial nerves II-XII grossly intact, Neuro grossly intact Psych/Mental Status: Normal Affect, Appropriate Laboratory Results 12/23/18 23:00: WBC 7.7, RBC 2.91 L, Hgb 8.7 L, Hct 27.5 L, MCV 94.5, MCH 29.9, MCHC 31.6 L, RDW 18.0 H, RDW Differential 63.0 H, Plt Count 342, MPV 9.4, Immature Gran % (Auto) 1.400 H, Neut % (Auto) 62.2, Lymph % (Auto) 17.0 L, Erie % (Auto) 16.4 H, Eos % (Auto) 2.7, Baso % (Auto) 0.3, Absolute Neuts (auto) 4.8, Absolute Lymphs (auto) 1.30, Total Counted Not Reportable 12/23/18 23:00: Sodium 140, Potassium 3.5, Chloride 107, Carbon Dioxide 28.0, Anion Gap 5, BUN 10, Creatinine 0.69, Estim Creat Clear Calc 39.59, Est GFR (MDRD) Af Amer 106, Est GFR (MDRD) Non-Af 87, BUN/Creatinine Ratio 14.4, Glucose 86, Calcium 7.9 L, Total Bilirubin 0.50, AST 40 H, ALT 29, Alkaline Phosphatase 387 H, Troponin I < 0.015, Total Protein 5.4 L, Albumin 2.5 L, Globulin 2.9, Albumin/Globulin Ratio 0.9 12/23/18 23:00: B-Natriuretic Peptide 151.6 H 12/23/18 23:13: Specimen Type ART, Sample Site L Radial, pH 7.46 H, Bicarbonate Actual 24.6, POC Total CO2 26, Base Excess 1, O2 Saturation 96, O2 % 21, ABG pCO2 34.6 L, ABG pO2 77, Roni Test POS, Respiration Rate 12, O2 Delivery Device Bi / C PAP, EPAP 10, Blood Gas Notified Whom ED MD, Blood Gas Notified Time 230912/24/18 05:50: Sodium 142, Potassium 3.2 L, Chloride 105, Carbon Dioxide 28.0, Anion Gap 9, BUN 9, Creatinine 0.65, Estim Creat Clear Calc 39.59, Est GFR (MDRD) Af Amer 115, Est GFR (MDRD) Non-Af 95, BUN/Creatinine Ratio 13.9, Glucose 78, Calcium 8.1 L 12/24/18 06:33: POC Glucose 85 12/24/18 12:03: POC Glucose 112 H 12/24/18 16:55: POC Glucose 103 Current Medications Acetaminophen (Tylenol) 500 mg PO Q4H PRN PRN PRN Reason: PAIN Last Admin: 12/24/18 14:53 Dose: 500 mg Bisacodyl (Dulcolax) 5 mg PO DAILY PRN PRN PRN Reason: Constipation Budesonide (Pulmicort Aerosol) 0.5 mg INHALATION Q12H.RT TAM Last Admin: 12/24/18 07:33 Dose: 0.5 mg Cholecalciferol (Vitamin D) 4,000 unit PO DAILY TAM Last Admin: 12/24/18 09:51 Dose: 4,000 unit Dextrose (D50w Syringe) 0 gm IV X1 PRN; Protocol PRN Reason: Hypoglycemia Diphenhydramine HCl (Benadryl) 25 mg PO Q8H PRN PRN PRN Reason: itching; allergies Glucagon () 1 mg IM .X1 PRN PRN Reason: Hypoglycemia Heparin Sodium (Beef Lung) () 50 units IV UD PRN PRN Reason: HEPARIN FLUSH Insulin Human Lispro (Humalog Kwikpen (Bkc)) 0 unit SQ ACHS [facility]; Protocol Last Admin: 12/24/18 17:01 Dose: Not Given Isosorbide Mononitrate (Imdur) 60 mg PO DAILY [facility] Last Admin: 12/24/18 09:52 Dose: 60 mg Lisinopril (Zestril) 10 mg PO DAILY [facility] Last Admin: 12/24/18 09:51 Dose: 10 mg Magnesium Hydroxide (Milk Of Magnesia) 30 ml PO DAILY PRN PRN Reason: Constipation Magnesium Oxide (Mag-Ox 400) 400 mg PO BID [facility] Last Admin: 12/24/18 09:52 Dose: 400 mg Metoprolol Tartrate (Lopressor (Beta Che)) 50 mg PO BID [facility] Last Admin: 12/24/18 09:51 Dose: 50 mg Montelukast Sodium (Singulair) 10 mg PO DAILY [facility] Last Admin: 12/24/18 09:55 Dose: Not Given Ondansetron HCl (Zofran) 4 mg IV Q8H PRN PRN PRN Reason: NAUSEA Pantoprazole Sodium (Protonix) 40 mg PO DAILY [facility] Last Admin: 12/24/18 09:51 Dose: 40 mg Potassium Chlor[facility] (K[facility]Dur) [facility] Last Admin: 12/24/18 08:10 Dose: 40 meq Simvastatin (Zocor) 20 mg PO QHS [facility] Sodium Chloride () 5 - 15 ml IV UD PRN PRN Reason: SALINE FLUSH Sodium Chloride () 10 ml IV UD PRN PRN Reason: VAD FLUSH Last Admin: 12/24/18 05:55 Dose: 10 ml Zolpidem Tartrate (Ambien (Generic)) 5 mg PO QHS PRN PRN PRN Reason: INSOMNIA Medical Necessity - Tobacco Use Smoking Status: Never smoker Assessment/Plan All Active Problems (Last Reviewed 12/24/18 @ 07:37 by Lalo Reveles MD) Pleural effusion (Acute) 78 year old F with PMHx of metastatic colon cancer, hypertension with mets to the liver status post colon resection and liver resection x2, CAD status post CABG, recently discharged from the [facility] of the lung mass resection and admitted with progressively worsening shortness of breath with moderate exertion; and found to have radiographic evidence of small to moderate right pleural effusion and small left pleural effusion and pulmonary nodules. 1. Hypoxia secondary to bilateral pleural effusion, worse on the right, resolved, patient is stable on room air 2. Bilateral pleural effusion, unclear etiology, history of metastatic colon CA, Discussed with interventional radiologist, patient will be off Xarelto for 48 hours which will be tomorrow morning and she will get thoracocentesis ultrasound guidance. Continue to hold aspirin and Xarelto. 3. Paroxysmal A. fib, on metoprolol, off Xarelto, will continue to monitor 4. GERD, on PPI 5. Hypertension, controlled, continue home medication 6. CAD status post CABG, off aspirin, on statin, on beta-blockers 7. Type 2 DM, off Amaryl for now, blood sugars controlled, on Accu-Cheks with insulin sliding scale 8. CHAU on CPAP 9. DVT PPx- SCDs Code Visit Inpatient E&M: 84698 Subs Hosp L2
--- NOTE | 2018-12-24 17:23 | PN_ITS ---
Patient Problems: Active and Suspected Problems (Last Reviewed 12/24/18 @ 07:37 by Lalo Reveles MD) Pleural effusion (Acute) Subjective: Patient was seen and examined. She denied any chest pain or dizziness or shortness of breath. Off oxygen. She has been off Xarelto since Sunday night Vitals/I&O's: Vital Signs Temp Pulse Resp BP Pulse Ox 98.6 F 78 16 126/72 H 96 12/24/18 14:50 12/24/18 14:50 12/24/18 14:50 12/24/18 14:50 12/24/18 14:50 Oxygen Delivery Method Room Air Weight: 101 kg Body Mass Index (BMI) 38.8 Finger Stick Blood Glucose 126 Intake and Output for Last 24 Hours 12/22/18 12/23/18 12/24/18 23:59 23:59 23:59 Intake Total 720 / 720 Balance 720 / 720 General: Alert, Oriented x3, Cooperative, No apparent distress, - HEENT: Atraumatic, PERRLA, EOMI, Normocephalic Oral: Moist Mucosa - On oxygen, appears very comfortable Neck: Supple, No JVD, Negative Carotid Bruits Lungs: Normal air movement, Diminished Cardiovascular: Regular rate, Regular Rhythm, Normal S1, Normal S2, No murmurs Abdomen: Bowel Sounds Present, Soft, Non Tender, Non-Distended, No Hepato- splenomegaly Extremities: No edema Skin: No rashes Musculoskeletal: No Tenderness to Palpation of Joints or Extremities Neurological: Cranial nerves II-XII grossly intact, Neuro grossly intact Psych/Mental Status: Normal Affect, Appropriate Laboratory Results 12/23/18 23:00: WBC 7.7, RBC 2.91 L, Hgb 8.7 L, Hct 27.5 L, MCV 94.5, MCH 29.9, MCHC 31.6 L, RDW 18.0 H, RDW Differential 63.0 H, Plt Count 342, MPV 9.4, Immature Gran % (Auto) 1.400 H, Neut % (Auto) 62.2, Lymph % (Auto) 17.0 L, Bennett % (Auto) 16.4 H, Eos % (Auto) 2.7, Baso % (Auto) 0.3, Absolute Neuts (auto) 4.8, Absolute Lymphs (auto) 1.30, Total Counted Not Reportable 12/23/18 23:00: Sodium 140, Potassium 3.5, Chloride 107, Carbon Dioxide 28.0, Anion Gap 5, BUN 10, Creatinine 0.69, Estim Creat Clear Calc 39.59, Est GFR (MDRD) Af Amer 106, Est GFR (MDRD) Non-Af 87, BUN/Creatinine Ratio 14.4, Glucose 86, Calcium 7.9 L, Total Bilirubin 0.50, AST 40 H, ALT 29, Alkaline Phosphatase 387 H, Troponin I < 0.015, Total Protein 5.4 L, Albumin 2.5 L, Globulin 2.9, Albumin/Globulin Ratio 0.9 12/23/18 23:00: B-Natriuretic Peptide 151.6 H 12/23/18 23:13: Specimen Type ART, Sample Site L Radial, pH 7.46 H, Bicarbonate Actual 24.6, POC Total CO2 26, Base Excess 1, O2 Saturation 96, O2 % 21, ABG pCO2 34.6 L, ABG pO2 77, Roni Test POS, Respiration Rate 12, O2 Delivery Device Bi / C PAP, EPAP 10, Blood Gas Notified Whom ED MD, Blood Gas Notified Time 230912/24/18 05:50: Sodium 142, Potassium 3.2 L, Chloride 105, Carbon Dioxide 28.0, Anion Gap 9, BUN 9, Creatinine 0.65, Estim Creat Clear Calc 39.59, Est GFR (MDRD) Af Amer 115, Est GFR (MDRD) Non-Af 95, BUN/Creatinine Ratio 13.9, Glucose 78, Calcium 8.1 L 12/24/18 06:33: POC Glucose 85 12/24/18 12:03: POC Glucose 112 H 12/24/18 16:55: POC Glucose 103 Current Medications Acetaminophen (Tylenol) 500 mg PO Q4H PRN PRN PRN Reason: PAIN Last Admin: 12/24/18 14:53 Dose: 500 mg Bisacodyl (Dulcolax) 5 mg PO DAILY PRN PRN PRN Reason: Constipation Budesonide (Pulmicort Aerosol) 0.5 mg INHALATION Q12H.RT TAM Last Admin: 12/24/18 07:33 Dose: 0.5 mg Cholecalciferol (Vitamin D) 4,000 unit PO DAILY TAM Last Admin: 12/24/18 09:51 Dose: 4,000 unit Dextrose (D50w Syringe) 0 gm IV X1 PRN; Protocol PRN Reason: Hypoglycemia Diphenhydramine HCl (Benadryl) 25 mg PO Q8H PRN PRN PRN Reason: itching; allergies Glucagon () 1 mg IM .X1 PRN PRN Reason: Hypoglycemia Heparin Sodium (Beef Lung) () 50 units IV UD PRN PRN Reason: HEPARIN FLUSH Insulin Human Lispro (Humalog Kwikpen (Bkc)) 0 unit SQ ACHS [facility]; Protocol Last Admin: 12/24/18 17:01 Dose: Not Given Isosorbide Mononitrate (Imdur) 60 mg PO DAILY [facility] Last Admin: 12/24/18 09:52 Dose: 60 mg Lisinopril (Zestril) 10 mg PO DAILY [facility] Last Admin: 12/24/18 09:51 Dose: 10 mg Magnesium Hydroxide (Milk Of Magnesia) 30 ml PO DAILY PRN PRN Reason: Constipation Magnesium Oxide (Mag-Ox 400) 400 mg PO BID [facility] Last Admin: 12/24/18 09:52 Dose: 400 mg Metoprolol Tartrate (Lopressor (Beta Che)) 50 mg PO BID [facility] Last Admin: 12/24/18 09:51 Dose: 50 mg Montelukast Sodium (Singulair) 10 mg PO DAILY [facility] Last Admin: 12/24/18 09:55 Dose: Not Given Ondansetron HCl (Zofran) 4 mg IV Q8H PRN PRN PRN Reason: NAUSEA Pantoprazole Sodium (Protonix) 40 mg PO DAILY [facility] Last Admin: 12/24/18 09:51 Dose: 40 mg Potassium [facility] ([facility]Dur) [facility] Last Admin: 12/24/18 08:10 Dose: 40 meq Simvastatin (Zocor) 20 mg PO QHS [facility] Sodium Chloride () 5 - 15 ml IV UD PRN PRN Reason: SALINE FLUSH Sodium Chloride () 10 ml IV UD PRN PRN Reason: VAD FLUSH Last Admin: 12/24/18 05:55 Dose: 10 ml Zolpidem Tartrate (Ambien (Generic)) 5 mg PO QHS PRN PRN PRN Reason: INSOMNIA Medical Necessity - Tobacco Use Smoking Status: Never smoker Assessment/Plan All Active Problems (Last Reviewed 12/24/18 @ 07:37 by Lalo Reveles MD) Pleural effusion (Acute) 78 year old F with PMHx of metastatic colon cancer, hypertension with mets to the liver status post colon resection and liver resection x2, CAD status post CABG, recently discharged from the [facility] of the lung mass resection and admitted with progressively worsening shortness of breath with moderate exertion; and found to have radiographic evidence of small to moderate right pleural effusion and small left pleural effusion and pulmonary nodules. 1. Hypoxia secondary to bilateral pleural effusion, worse on the right, resolved, patient is stable on room air 2. Bilateral pleural effusion, unclear etiology, history of metastatic colon CA, Discussed with interventional radiologist, patient will be off Xarelto for 48 hours which will be tomorrow morning and she will get thoracocentesis ultrasound guidance. Continue to hold aspirin and Xarelto. 3. Paroxysmal A. fib, on metoprolol, off Xarelto, will continue to monitor 4. GERD, on PPI 5. Hypertension, controlled, continue home medication 6. CAD status post CABG, off aspirin, on statin, on beta-blockers 7. Type 2 DM, off Amaryl for now, blood sugars controlled, on Accu-Cheks with insulin sliding scale 8. CHAU on CPAP 9. DVT PPx- SCDs Code Visit Inpatient E&M: 94265 Subs Hosp L2
--- NOTE | 2018-12-24 19:21 | CPS ---
pt brought in own cpap, set up by RT.
[2018-12-24] MEDS: Simvastatin 20 MG Tablet PO (20:03)
--- NOTE | 2018-12-24 20:04 | NURSING ---
Pt requesting meds to be given early tonight due to not getting enough sleep.
[2018-12-24] MEDS: Insulin Lispro 100 UNIT/ML INSULN.PEN SQ (20:21)
[2018-12-24 21:36] LABS: Bedside Glucose 200 mg/dL (70-110)
--- NOTE | 2018-12-24 23:56 | CT_ITS ---
HISTORY: LIVER SX ON 12-13, SOB SINCE D/C, POWER PORT, CABG, HTN, NH, HYSTERECTOMY, COLON, BREAST, LIVER, LUNG CA EXAMINATION: CTA Chest W Contrast TECHNIQUE: Helically acquired images were obtained of the chest following IV contrast as per pulmonary angiogram protocol with 3D reconstructions. A radiation dose optimization technique was used for this scan. IV Contrast dosage and agent: 100ML Isovue 370 COMPARISON: Chest x-ray 12/23/2018 FINDINGS: The main, segmental, and visualized subsegmental pulmonary arteries show normal opacification and appearance. No PE. Previous median sternotomy and postsurgical changes related to previous CABG. Atherosclerotic thoracic aorta. The ascending thoracic aorta shows borderline dilatation measuring up to 3.6 cm in diameter. No thoracic aortic dissection or pericardial effusion. Right hilar nonspecific 1.5 x 1.1 x 1.5 cm lymph node. This node is potentially granulomatous in origin. Small to moderate right pleural effusion with secondary right basilar passive atelectasis. Mild loculated fluid within the right major fissure. Underlying right lower lobe 1.4 cm partly calcified granuloma. Small left pleural effusion. Anterior segment left upper lobe pleural-based 0.9 x 0.5 cm irregular nodule which is noncalcified. Possible metastasis. Previous surgical resection of the left hepatic lobe. CT/CTA Chest W/WO Contrast IMPRESSION: 1. No PE. 2. Small to moderate right pleural effusion with right basilar passive atelectatic change. Small left pleural effusion. Malignant pleural effusion not excluded. 3. Left upper lobe 0.9 cm irregular nodule, possible metastasis. Consider further correlation with PET/CT. 4. Right lower lobe calcified granuloma and right hilar 1.5 cm nonspecific lymph node, potentially granulomatous in origin. 5. Chronic changes include previous CABG and previous resection left hepatic lobe. Individualized dose optimization techniques were used for this CT. at 0124 Reported and signed by: Nabil Erickson MD Electronically Signed: Nabil Erickson, at 1:23 EDT Tel , Service support ,
[2018-12-25] VITALS (9 sets, daily range): BP systolic 115–130; BP diastolic 59–69; PULSE 65–115; RESP 16–19; TEMP 36.6–36.9; O2SAT 95–99
--- NOTE | 2018-12-25 | FLU_PTH ---
PATIENT: DIANA COKER LOC: [facility] U#:[id number] AGE/SX: 78/F ROOM: [facility] RE12/24/[address]: Dr. Sharon Harvey MD : 1940 BED: 1 DIS: 12/25/2018 SPEC #: [id number] RECD: 12/25/18 10:30 STATUS: WILIAN REEsme #: [id number] NOLA: 12/25/18 00:[address]: Sharon Harvey DEPT: CYTOLOGY RECD BY: Danielle Ferreira ENTERED: 12/25/18 11:36 SP TYPE: Fluid OTHR DR: MD Dr. Vernon Samuel MD Tissues: THORACIC FLUID Procedures: Special Stain Group II Surgery Specimen Level IV Cytospin Fluid HEADER OPERATION: Ultrasound guided, right thoracentesis PRE-OP DIAGNOSIS: Pleural effusion TISSUE SUBMITTED: Thoracentesis fluid for cytology DIAGNOSIS CYTOLOGY Right pleural effusion, ultrasound-guided right thoracentesis, cytology monolayer and cell block: Negative for malignant cells. Mesothelial cells, lymphocytes, mononuclear cells and peripheral blood present. CE:carmen 12/26/18 CYTOLOGY STUDY Slides are reviewed. CYTOLOGY GROSS Received is 110 ml of red cloudy fluid labeled with the patient's name and and designated per the requisition as thoracentesis. Submitted for cytology preparation including cell block. /CC:cc 12/25/18 TC:3 CPT: 72332, 15557
[2018-12-25] MEDS: 0.9% NaCl Peripheral Flush Adult/Peds IV ×3 (05:15→14:27)
[2018-12-25 05:30] LABS: Hematocrit 26.8 % (37-47); Hemoglobin 8.1 g/dl (12.0-15.0)
[2018-12-25 06:00] LABS: International Normalized Ratio 1.1; Prothrombin Time (Protime)PT. 14.2 SECONDS (11.7-14.9)
[2018-12-25 06:55] LABS: Bedside Glucose 82 mg/dL (70-110)
[2018-12-25] MEDS: Budesonide Respules 0.5 MG/2 ML AMPUL.NEB. INHALATION (07:42)
--- NOTE | 2018-12-25 08:00 | US_ITS ---
PROCEDURE: ULTRASOUND GUIDED THORACENTESIS. DATE: December 25, 2018. INDICATION: Female, 78 years old. Right pleural effusion. PHYSICIAN: Wang Holt M.D. PROCEDURE: The risks, benefits, and alternatives to the procedure were explained to the patient. The specific risks of bleeding, infection, and pneumothorax requiring chest tube insertion were discussed and accepted. Written informed consent was obtained. Ultrasonographic evaluation of the right lower pleural space was carried out. An adequate pocket was identified. The patient was placed in the sitting, upright position. The overlying skin was prepped and draped in sterile fashion. 1% lidocaine was administered subcutaneously for local anesthesia. Under ultrasound guidance, a 5 Khmer thoracentesis needle/catheter system was advanced into the right posterior lower pleural fluid collection. Approximately 130 mL of blood tinged fluid was drained. The catheter was removed, and a sterile dressing was applied. A specimen was collected and sent to the laboratory for analysis, as requested by the referring clinician. The patient tolerated the procedure well. A chest x-ray was ordered. US/Thoracentesis W US IMPRESSION: Ultrasound-guided right thoracentesis. Electronically Signed: Wang Holt, at 11:39 EDT , Service support ,
[2018-12-25] MEDS: Metoprolol Tartrate 50 MG Tablet PO (09:47)
[2018-12-25] MEDS: Magnesium Oxide 400 MG Tablet PO (09:47)
[2018-12-25] MEDS: Isosorbide Mononitrate 60 MG Tablet PO (09:47)
[2018-12-25] MEDS: Pantoprazole Sodium 40 MG Tablet PO (09:47)
[2018-12-25] MEDS: Lisinopril 10 MG Tablet PO (09:48)
--- NOTE | 2018-12-25 10:30 | RAD_ITS ---
STUDY: X-RAY CHEST REASON FOR EXAM: Female, 78 years old. The patient is status post right thoracentesis. TECHNIQUE: AP inspiration and expiration views. COMPARISON: Comparison is made with prior examination dated December 23, 2018. FINDINGS: The patient is status post right thoracentesis. There is no evidence of pneumothorax. Residual blunting of the right costophrenic angle with mild right basilar atelectasis. A right-sided Port-A-Cath is seen. RAD/Chest Insp/Exp 2 View IMPRESSION: Status post right thoracentesis. There is no evidence of pneumothorax. Electronically Signed: Wnag Holt, at 14:48 EDT , Service support ,
[2018-12-25 10:52] LABS: Cytology, Body Fluid / CSF SEE PATHOLOGY REPORT
[2018-12-25 11:22] LABS: Body Fluid Mononuclear WBC # 0.867 10^3/uL; Body Fluid Mononuclear WBC % 91.7 %; Body Fluid Polynuclear WBC # 0.078 10^3/uL; Body Fluid Polynuclear WBC % 8.3 %; Body Fluid Total Cells Counted 0.983 10^3/ul (0.000-0.000); White Blood Count/Body Fluid 0.945 10^3/uL
[2018-12-25 11:27] LABS: Glucose, Body Fluid 151 mg/dL (40-70); LDH,Body Fluid 73 Units/l (Not Establ.); Protein, Body Fluid 1.6 g/dL (Not Establ.)
[2018-12-25 11:55] LABS: Bedside Glucose 140 mg/dL (70-110)
--- NOTE | 2018-12-25 11:58 | TREXTCAR_ITS ---
- Diet 12/24/18 04:19 Diet: Cardiac/Low Cholesterol Food consistency:: Regular Liquid Consistency:: Regular/Thin - Routine Orders/Code Status Routine Lab Work: CBC - within 3 days, BMP - within 3 days Code Status: Full Code - Wound(s) abdomen Wound Type: Surgical Incision RLQ abdomen Wound Type: old drain site - Therapies Weight Bearing: Weight bearing as tolerated Physical Therapy: Eval and Treat Occupational Therapy: Eval and Treat - Allergies/Procedures Done in Hospital Allergies/Adverse Reactions: Allergies hunt Allergy (Verified 12/23/18 22:32) Shortness of breath nadolol [From Corgard] Allergy (Verified 12/23/18 22:32) Hives Penicillins Allergy (Verified 12/23/18 22:32) Hives pitavastatin [From Livalo] Allergy (Verified 12/23/18 22:32) myalgia pravastatin sodium [From Pravachol] Allergy (Verified 12/23/18 22:32) Hives sulfite Allergy (Verified 12/23/18 22:32) Hives atorvastatin calcium [From Lipitor] Adverse Reaction (Verified 12/23/18 22:32) Pain in joints morphine Adverse Reaction (Verified 12/23/18 22:32) chest pain CHEST PAINS AND SOB Procedures: Thoracentesis - on 12/25/18 - Type of Care/Length of Stay Estimated LOS: Convalescent Care Less Than 30 days Type of Care Needed: Skilled Rehab Potential: Good Prognosis: Good - Additional Orders/Day of Discharge Day of Discharge: 12/25/18 - Follow Up Care Primary Care Physician: Vernon Rosa MD [Primary Care Provider] - Please follow up with your Primary Care Physician in: within 1-2 weeks of discharge Please Follow Up With: Sujit Vasquez DO When: as scheduled When: Liver surgeon in [facility]
--- NOTE | 2018-12-25 11:58 | DS.PCM_ITS ---
Discharge Date and Diagnosis Date of Admission: 12/24/18 Date of Discharge: 12/25/18 - Primary Discharge Diagnosis Active and Suspected Problems (Last Reviewed 12/24/18 @ 07:37 by Lalo Reveles MD) Pleural effusion (Acute) - Secondary Discharge Diagnosis Chronic Problems (Last Reviewed 12/24/18 @ 07:37 by Lalo Reveles MD) Nonrheumatic mitral (valve) insufficiency (Chronic) Non-rheumatic tricuspid valve insufficiency (Chronic) History of coronary artery stent placement (Chronic 12/04/13) PCI-HARRIS-Cx w/ 2.5 x 16 mm Promus Premier and POBA-Prox LAD 12/04/13 Atherosclerosis of coronary artery without angina pectoris (Chronic) CABG x 2 [place] to D2, SVG to RCA 02/13/2012 H/O coronary artery bypass surgery (Chronic 02/13/12) CABG x 2 [place] to D2, SVG to RCA 02/13/2012 HTN (hypertension) (Chronic) Old myocardial infarction (Chronic) Persistent atrial fibrillation (Chronic) Hypomagnesemia (Chronic) Anemia of chronic disorder (Chronic) Carotid artery stenosis (Chronic) Hyperlipidemia (Chronic) Diabetes mellitus, type II (Chronic) Obesity (BMI 30-39.9) (Chronic) Adenocarcinoma of colon (Chronic) Breast cancer (Chronic) Colon cancer metastasized to liver (Chronic) Hospital Course and Treatment Imaging Results: 12/25/18 08:00 US Thora [Thoracentesis W US] [US] Routine 12/25/18 10:30 Chest Insp/Exp 2 View [RAD] Stat Clinical Impression(s) from Imaging Studies Chest X-Ray 12/23/18 22:49 IMPRESSION: Probable old granuloma at the right lung base. There is no acute cardiopulmonary disease or major interval change. Electronically Signed: Darryl Perez DO at 23:21 EDT Tel [phone], Service support , Chest CTA 12/24/18 23:56 IMPRESSION: 1. No PE. 2. Small to moderate right pleural effusion with right basilar passive atelectatic change. Small left pleural effusion. Malignant pleural effusion not excluded. 3. Left upper lobe 0.9 cm irregular nodule, possible metastasis. Consider further correlation with PET/CT. 4. Right lower lobe calcified granuloma and right hilar 1.5 cm nonspecific lymph node, potentially granulomatous in origin. 5. Chronic changes include previous CABG and previous resection left hepatic lobe. Individualized dose optimization techniques were used for this CT. at 0124 Reported and signed by: Nabil Erickson MD Electronically Signed: Nabil Erickson, at 1:23 EDT Tel , Service support , Chest X-Ray 12/25/18 10:30 IMPRESSION: Status post right thoracentesis. There is no evidence of pneumothorax. Electronically Signed: Wang Yanet, at 14:48 EDT , Service support , Consultations 12/24/18 04:46 Consult: Onc/Wound/nurse midwife/clinical instructor Routine Comment: abdomin s/p liver sx with nupur and sutures Operations: None Procedures: None Summary of Care Provided: 78 year old F with PMHx of metastatic colon cancer, hypertension with mets to the liver status post colon resection and liver resection x2, CAD status post CABG, recently discharged from the [facility] of the lung mass resection a nd admitted with progressively worsening shortness of breath with moderate exertion; and found to have radiographic evidence of small to moderate right pleural effusion and small left pleural effusion and pulmonary nodules. Patient has her hypoxia resolved by the time she got to the floor. She remained stable on room air. She had a diagnostic/therapeutic thoracocentesis done. She remained stable post procedure and chest x-ray was negative for pneumothorax. Pleural fluid analysis was consistent with transudative with pleural fluid LDH to serum LDH ratio was less than 0.6 and pleural fluid total protein to serum total protein less than 0.5. Subjective: On the day of discharge, patient was seen and examined. Denied any new complaints. She had thoracocentesis done today. Denies any fever or chills, or cough. Objective: Physical exam: General: Alert, Oriented x3, Cooperative, No apparent distress, - HEENT: Atraumatic, PERRLA, EOMI, Normocephalic Oral: Moist Mucosa - On oxygen, appears very comfortable Neck: Supple, No JVD, Negative Carotid Bruits Lungs: Normal air movement, Diminished Cardiovascular: Regular rate, Regular Rhythm, Normal S1, Normal S2, No murmurs Abdomen: Bowel Sounds Present, Soft, Non Tender, Non-Distended, No Hepato- splenomegaly Extremities: No edema Skin: No rashes Musculoskeletal: No Tenderness to Palpation of Joints or Extremities Neurological: Cranial nerves II-XII grossly intact, Neuro grossly intact Psych/Mental Status: Normal Affect, Appropriate - Physical Exam Vital Signs Temp Pulse Resp BP Pulse Ox 98.4 F 92 17 119/60 97 12/25/18 11:38 12/25/18 11:38 12/25/18 11:38 12/25/18 11:38 12/25/18 11:38 Oxygen Delivery Method Room Air Weight: 101.1 kg Body Mass Index (BMI) 38.8 Finger Stick Blood Glucose 126 Intake and Output for Last 24 Hours 12/23/18 12/24/18 12/25/18 23:59 23:59 23:59 Intake Total 1380 / 1380 725 / 725 Balance 1380 / 1380 725 / 725 Laboratory Tests Past 24 Hrs 12/25/18 12/25/18 12/25/18 05:10 05:10 10:20 Hgb 8.1 L Hct 26.8 L PT 14.2 INR 1.1 Fluid Source Fluid Color Fluid Appearance Fluid WBC Fluid RBC Fluid Tot Cell Count Fld Polynuclear WBCs # Fld Polynuclear WBCs % Fluid Mononuclear WBCs Fld Mononuclear WBCs % Fl Pathologist Comment Fluid Glucose 151 H Fluid Total Protein 1.6 Fluid LDH 73 Fluid Comment 2 Miscellaneous Cytology 12/25/18 12/25/18 10:20 10:20 Hgb Hct PT INR Fluid Source Pending Fluid Color Pending Fluid Appearance Pending Fluid WBC 0.945 Fluid RBC 0.53155 Fluid Tot Cell Count 0.983 H Fld Polynuclear WBCs # 0.078 Fld Polynuclear WBCs % 8.3 Fluid Mononuclear WBCs 0.867 Fld Mononuclear WBCs % 91.7 Fl Pathologist Comment Pending Fluid Glucose Fluid Total Protein Fluid LDH Fluid Comment 2 Pending Miscellaneous Cytology Pending POC Glucose 12/25/18 12/25/18 12/24/18 11:34 06:46 20:17 POC Glucose 140 H 82 200 H 12/24/18 12/24/18 16:55 12:03 POC Glucose 103 112 H Discharge Diet: Low fat/ Low Cholesterol, 2000 mg Sodium Diet, Carb Control Diet Discharge Activity: Return to Normal Activity Home Medications: Medications to take at Discharge Aspirin 81 mg PO DAILY 01/03/17 Cholecalciferol (Vitamin D3) [Vitamin D3] 4,000 unit PO DAILY 01/03/17 Mometasone Furoate [Asmanex 220 mcg Twisthaler] 2 puff INHALATION DAILY 01/03/17 epinephrine 0.3 mg/0.3 mL injection, auto-injector 0.3 ml SC PRN PRN 1 Days #2 ea 08/17/17 hydrocortisone 2.5 % topical cream 1 applic TOPICAL TID PRN PRN 10 Days #30 08/17/17 montelukast 10 mg tablet 10 mg PO QDAY PRN tab 08/17/17 magnesium oxide 400 mg (241.3 mg magnesium) tablet 400 mg PO BID #180 tab 08/21/17 nitroglycerin 0.4 mg sublingual tablet 0.4 mg SUBLINGUAL Q5M PRN #25 tab 08/21/17 Potassium Chloride [Klor-Con M20] 20 meq PO DAILY 10/01/17 furosemide 40 mg tablet 40 mg PO QDAY #90 tab 03/07/18 rivaroxaban 15 mg tablet 15 mg PO QDAY #90 tab 03/07/18 Glimepiride [Amaryl] 1 tab PO DAILY 07/29/18 isosorbide mononitrate ER 60 mg tablet,extended release 24 hr 60 mg PO DAILY #90 tab 08/28/18 lisinopril 10 mg tablet 10 mg PO DAILY #90 tab 08/28/18 simvastatin 20 mg tablet 20 mg PO QHS #90 tab 08/28/18 Metoprolol Tartrate 50 mg PO BID 12/23/18 Omeprazole 40 mg PO DAILY 12/23/18 Bisacodyl [Dulcolax] 5 mg PO DAILY PRN PRN tablet 12/25/18 Insulin Lispro [Humalog KwikPen] See Protocol SQ ACHS insuln.pen 12/25/18 Primary Care Physician: Vernon Rosa MD [Primary Care Provider] - Please follow up with your Primary Care Physician in: within 1-2 weeks of discharge Please Follow Up With: Masci,Sujit, DO When: as scheduled When: Liver surgeon in [facility] Disposition: [facility] facility Minutes spent on discharge:: 45 Patient Condition:: Stable Medical Necessity - Tobacco Use Smoking Status: Never smoker Tobacco Use: Non-smoker Meaningful Use Info Meaningful Use Diagnoses (Choose all that apply): None applicable Code Visit Inpatient E&M: 70518 Disch Hosp
--- NOTE | 2018-12-25 12:48 | CASEMGMT ---
[facility] is able to accept patient. FREYA spoke with patient letting her know. FREYA also let her know that she will be discharged today. She said her family can transport her via car. FREYA faxed orders to [facility]. Plan: d/c to [facility] at [place] under skilled level of care. Family will transport via private vehicle. Mariah ARGUETA MSW
[2018-12-25 12:53] LABS: Appearance/Body Fluid SL CLDY; Auto B Fluid Analyzer BKGD Ct COUNTS W/IN LIMITS (W/IN LIMITS); Color/Body Fluid YELLOW; Source- Body Fluid THORACENTESIS
[2018-12-25 12:54] LABS: Body Fluid QC Type(s) BF2; Lymphocytes 79 %; Monocytes 5 %; Neutrophil (Segs) 8 %; Other Cell Type/BF 8 %
[2018-12-25 14:50] LABS: Anion Gap 4 (5-15); BUN 10 mg/dL (7-18); BUN/Creat Ratio 12.5 RATIO (10-20); Calcium,Total 7.9 mg/dL (8.5-10.1); Chloride 106 mmol/L (98-107); EST Glomerular Filtration Rate 74 mL/min (>60); Est Glom Filt Rate - Afr Amer 90 mL/min (>60); Estimated Creatinine Clearance 49.49 ml/min; Glucose 160 mg/dL (74-106); Potassium 4.4 mmol/L (3.5-5.1); Sodium Level 138 mmol/L (136-145)
[2018-12-25 16:35] LABS: AST(SGOT) 44 U/L (15-37); Alanine Aminotransfer ALT/SGPT 28 U/L (13-56); Albumin, Serum 2.3 g/dL (3.2-5.0); Alkaline Phosphatase 401 U/L (45-117); Bilirubin, Direct 0.28 mg/dL (0.00-0.30); Globulin 3.1 g/dL (2.2-4.2); LDH 254 U/L (84-246); Protein, Total 5.4 g/dL (6.4-8.2)
[2018-12-26 14:36] LABS: Pathologist Comment/Body Fluid Reviewed
== END 2018-12-25 15:52 | disposition skilled nursing facility (03) | DRG 187 ==
LOC: ED 22:55 → PCU 12-24 02:48
PROVIDERS: Admitting Provider Hospitalist; Emergency Provider Emergency Medicine; Family Provider Family Medicine; PCP Family Medicine; Visit Provider Internal Medicine
DX: J90 Pleural effusion, not elsewhere classified (principal); C18.9 Malignant neoplasm of colon, unspecified; C78.7 Secondary malignant neoplasm of liver and intrahepatic bile duct; I48.1 Persistent atrial fibrillation; I25.10 Atherosclerotic heart disease of native coronary artery without angina pectoris; I36.1 Nonrheumatic tricuspid (valve) insufficiency; I34.0 Nonrheumatic mitral (valve) insufficiency; E66.9 Obesity, unspecified; E78.5 Hyperlipidemia, unspecified; E11.9 Type 2 diabetes mellitus without complications; R09.02 Hypoxemia; G47.33 Obstructive sleep apnea (adult) (pediatric); I25.2 Old myocardial infarction; Z68.38 Body mass index [BMI] 38.0-38.9, adult; Z95.1 Presence of aortocoronary bypass graft; Z90.49 Acquired absence of other specified parts of digestive tract; Z95.5 Presence of coronary angioplasty implant and graft; I10 Essential (primary) hypertension; D63.8 Anemia in other chronic diseases classified elsewhere; Z79.84 Long term (current) use of oral hypoglycemic drugs; C50.919 Malignant neoplasm of unspecified site of unspecified female breast
CPT/HCPCS: 32555; 36591; 36600; 71045; 71046; 71275; 80048; 80053; 80076; 82803; 82945; 82962; 83615; 83880; 84157; 84484; 85014; 85018; 85025; 85610; 88108; 88305; 88313; 89050; 93005; 94640; 94660; 97162; 97166; 97530; 99285; Q9967; A4216; J1940

== ENCOUNTER → 2019-01-17 | Outpatient (CLI) | payer MEDICARE, OTHER, SELFPAY ==
[2018-12-30 10:46] VITALS: BMI 38.6
--- NOTE | 2019-01-17 14:56 | ECHOCS_ITS ---
Reason For Study: SOB Procedure This was a 2D Doppler, Color Flow transthoracic echocardiogram. Unable to perform strain analysis due to patient arrhythmia. Exam performed in department. Left Ventricle Normal LV size. Left ventricular systolic function is normal. The estimated ejection fraction is 65 %. No regional wall motion abnormalities noted. Right Ventricle Normal RV size. Normal systolic function. Atria Normal left atrium. Normal right atrium. Mitral Valve Normal mitral valve. Tricuspid Valve Normal tricuspid valve. Mild (1+) tricuspid valve insufficiency. Pulmonary artery systolic pressure is 32 mmHg. Aortic Valve Trisinus/trileaflet aortic valve. Pulmonic Valve Normal pulmonic valve. Great Vessels Normal aortic root. The pulmonary artery is normal size. Normal inferior vena cava. Pericardium/Pleural No pericardial effusion. Medication 22 gauge I.V. with prn adaptor inserted into right arm. Diluted definity 5ml given slow IV push to enhance endocardial definition. MMode/2D Measurements & Calculations LVIDd: 4.1 cm IVSd: 1.2 cm Ao root diam: 3.2 cm LVIDs: 2.7 cm LVPWd: 1.0 cm RVDd: 3.0 cm FS: 33.6 % LAV(MOD-bp): 43.7 ml LVAd ap4: 18.6 cm2 SV(MOD-sp4): 27.1 ml LAV(MOD-bp) Indexed: 22.1 ml/m2 EDV(MOD-sp4): 46.9 ml LAV(MOD-sp2): 38.4 ml EDV(sp4-el): 48.6 ml LAV(MOD-sp4): 45.7 ml LVAs ap4: 11.3 cm2 ESV(MOD-sp4): 19.8 ml ESV(sp4-el): 20.8 ml EF(MOD-sp4): 57.9 % EF(sp4-el): 57.2 % SV(sp4-el): 27.8 ml LA A4 area: 17.8 cm2 LA dimension(2D): 3.9 cm RA A4 area: 15.4 cm2 Doppler Measurements & Calculations MV E max saundra: 100.5 cm/sec Ao V2 max: 113.9 cm/sec LV V1 max: 73.0 cm/sec Ao max P.2 mmHg LV V1 max P.1 mmHg PA V2 max: 88.7 cm/sec TR max saundra: 261.5 cm/sec TR max P.4 mmHg Interpretation Summary Normal LV size. Left ventricular systolic function is normal. The estimated ejection fraction is 65 %. Mild (1+) tricuspid valve insufficiency. Pulmonary artery systolic pressure is 32 mmHg. Contrast injection was performed. Ordering Physician: Sujit Vasquez Referring Physician: ALVAREZ MCCOY Performed By: Johnathon, Marina, RDCS
== END | disposition home or self-care (01) ==
LOC: CVS 14:53
PROVIDERS: Family Provider Family Medicine; PCP Family Medicine; Referring Provider Internal Medicine Hematology & Oncology; Visit Provider Internal Medicine Hematology & Oncology
DX: I49.8 Other specified cardiac arrhythmias (principal); R06.02 Shortness of breath
CPT/HCPCS: 93306; Q9957; A4216; C8929

== ENCOUNTER → 2019-02-21 | Outpatient (CLI) | payer MEDICARE, OTHER, SELFPAY ==
[2019-01-24 14:20] VITALS: BMI 36.8
--- NOTE | 2019-02-21 13:30 | RAD_ITS ---
STUDY: X-RAY CHEST REASON FOR EXAM: Female, 78 years old. Cough TECHNIQUE: Frontal view of the chest COMPARISON: 12/25/2018 FINDINGS: There is a small right pleural effusion which is decreased in size when compared with the prior exam. There is no left-sided effusion. There are no focal infiltrates. There is no pneumothorax. Again noted is a right-sided port with its tip in the superior vena cava. The heart is normal in size. Again noted are sternotomy wires. The visualized osseous structures are within normal limits. RAD/Chest PA and Lateral IMPRESSION: Small right pleural effusion which is decreased in size when compared with the prior exam. Electronically Signed: Tl Croft, at 19:40 EDT Tel , Service support ,
== END | disposition home or self-care (01) ==
LOC: MTRAD 13:23
PROVIDERS: Family Provider Family Medicine; PCP Family Medicine; Referring Provider Internal Medicine Pulmonary Disease; Visit Provider Internal Medicine Pulmonary Disease
DX: R05 Cough (principal); R06.00 Dyspnea, unspecified
CPT/HCPCS: 71046

== ENCOUNTER → 2019-03-11 | Outpatient (CLI) | payer MEDICARE, OTHER, SELFPAY ==
[2019-01-24 14:20] VITALS: BMI 36.8
[2019-03-11 13:57] LABS: AST(SGOT) 36 U/L (15-37); Alanine Aminotransfer ALT/SGPT 40 U/L (13-56); Albumin, Serum 3.2 g/dL (3.2-5.0); Alkaline Phosphatase 317 U/L (45-117); Cholesterol 167 mg/dL (200); Globulin 3.8 g/dL (2.2-4.2); High Density Lipoprotein 59 mg/dL; Triglycerides 119 mg/dL; Very Low Density Lipoprotein 24 mg/dL (5-40)
== END | disposition home or self-care (01) ==
LOC: LAB 12:12
PROVIDERS: Family Provider Family Medicine; PCP Family Medicine; Referring Provider Internal Medicine Cardiovascular Disease; Visit Provider Internal Medicine Cardiovascular Disease
DX: E78.5 Hyperlipidemia, unspecified (principal)
CPT/HCPCS: 36415; 80061; 80076

== ENCOUNTER → 2020-02-20 09:38 | Outpatient (CLI) | payer MEDICARE, OTHER, SELFPAY ==
[2019-09-22 11:30] VITALS: BMI 35.6
--- NOTE | 2020-02-20 09:46 | CDU_ITS ---
Reason For Study: STENOSIS Rt. Velocities/BP Lt. Velocities/BP Prox CCA 116.4/18.6 cm/sec. Prox CCA 217.9/11.6 cm/sec. Mid CCA 80.3/16.4 cm/sec. Mid CCA 74.6/19.7 cm/sec. Dist CCA 89.5/20.3 cm/sec. Dist CCA 76.8/13.1 cm/sec. Prox ICA 91.6/21.6 cm/sec. Prox ICA 66.9/18.6 cm/sec. Mid ICA 89.2/21.6 cm/sec. Mid ICA 77.9/27.4 cm/sec. Dist ICA 106.4/26.5 cm/sec. Dist ICA 75.7/31.7 cm/sec. Rt. ICA/CCA = 106.4/116.4=0.9. Lt. ICA/CCA = 77.9/74.6=1.0. Prox ECA 170.3/0.0 cm/sec. Prox ECA 92.9/0.0 cm/sec. Rt. Vert. 45.3/13.9 cm/sec. Lt. Vert. 50.5/14.7 cm/sec. Right Extracranial There is homogeneous, smooth atherosclerotic plaque noted in the right common carotid artery. There is heterogeneous, smooth atherosclerotic plaque noted in the right internal carotid artery. There is intimal thickening but no significant atherosclerotic plaque noted in the right external carotid artery. Antegrade flow is noted in the right vertebral artery. There is heterogeneous, irregular atherosclerotic plaque noted in the right bulb. Left Extracranial There is homogeneous, smooth atherosclerotic plaque noted in the left common carotid artery. There is heterogeneous, smooth atherosclerotic plaque noted in the left internal carotid artery. There is homogeneous, smooth atherosclerotic plaque noted in the left external carotid artery. Antegrade flow is noted in the left vertebral artery. Interpretation Summary Mild (<50%) stenosis right extracranial internal carotid. Mild (<50%) stenosis left extracranial internal carotid. Flow within the vertebral arteries is antegrade bilaterally. Heterogeneous, irregular atherosclerotic plaque is noted in the right carotid bulb, which does not appear to be hemodynamically significant. Ordering Physician: Ofelia Ruano Referring Physician: Vernon Grubbs Performed By: Natalia Kennedy, ARAMIS, RVT
== END ==
PROVIDERS: PCP Family Medicine; Referring Provider Nurse Practitioner Primary Care; Visit Provider Nurse Practitioner Primary Care
DX: I65.23 Occlusion and stenosis of bilateral carotid arteries (principal); Z98.890 Other specified postprocedural states
CPT/HCPCS: 93880

== ENCOUNTER → 2020-03-05 11:21 | Outpatient (CLI) | payer MEDICARE, OTHER, SELFPAY ==
[2019-09-22 11:30] VITALS: BMI 35.6
[2020-03-05 13:48] LABS: ALB/GLOB Ratio 0.9 RATIO (0.9-2.4); AST(SGOT) 36 U/L (15-37); Alanine Aminotransfer ALT/SGPT 49 U/L (13-56); Albumin, Serum 3.4 g/dL (3.2-5.0); Alkaline Phosphatase 258 U/L (45-117); Anion Gap 5 (5-15); BUN 23 mg/dL (7-18); Calcium,Total 8.9 mg/dL (8.5-10.1); Chloride 101 mmol/L (98-107); Creatinine, Serum 1.21 mg/dL (0.55-1.02); EST Glomerular Filtration Rate 46 mL/min (>60); Est Glom Filt Rate - Afr Amer 55 mL/min (>60); Globulin 3.9 g/dL (2.2-4.2); Glucose 89 mg/dL (74-106); Potassium 3.9 mmol/L (3.5-5.1); Protein, Total 7.3 g/dL (6.4-8.2); Sodium Level 138 mmol/L (136-145)
[2020-03-05 14:09] LABS: Cholesterol 184 mg/dL (200); High Density Lipoprotein 68 mg/dL; Triglycerides 158 mg/dL; Very Low Density Lipoprotein 32 mg/dL (5-40)
== END ==
PROVIDERS: PCP Family Medicine; Referring Provider Physician Assistant Medical; Visit Provider Physician Assistant Medical
DX: I10 Essential (primary) hypertension (principal); I25.10 Atherosclerotic heart disease of native coronary artery without angina pectoris
CPT/HCPCS: 36415; 80053; 80061

== ENCOUNTER 2020-03-14 15:48 | Emergency (ER) | payer MEDICARE, OTHER, SELFPAY ==
[2019-09-22 11:30] VITALS: BMI 35.6
[2020-03-14 15:50] VITALS: BP 142/79; PULSE 52; RESP 16; TEMP 36.7; O2SAT 97; BMI 39.2
--- NOTE | 2020-03-14 16:12 | CT_ITS ---
STUDY: CT BRAIN WITHOUT CONTRAST REASON FOR EXAM: Female, 79 years old. MAGALLON, LT FACIAL TINGLING, CABG, HTN, BREAST, COLON,LUNG AND LIVER CA, LT CAROTID ENDARTERECTOMY RADIATION DOSAGE (If Supplied By Facility): CTDIvol = ( 44.99 ) mGy, DLP = ( 796.11 ) mGycm TECHNIQUE: Transaxial CT imaging of the brain was performed without administration of intravenous contrast material. Individualized dose optimization techniques were used for this CT. COMPARISON: None. FINDINGS: Normal soft tissue structures. Normal calvarium. There is mild cerebral atrophy with widening of the extra-axial spaces and ventricular dilatation. There are areas of decreased attenuation within the white matter tracts of the supratentorial brain, consistent with microvascular disease changes. Normal basal ganglia and thalami. Normal brainstem. Normal cerebellum. There is no intracranial hemorrhage. There are no findings of an acute ischemic infarction. There is mucoperiosteal inflammatory disease of the paranasal sinuses consistent with mild chronic sinusitis. CT/Brain/Head without Contrast IMPRESSION: Chronic ischemic and involutional changes of the brain. Electronically Signed: Nathan Gagnon MD at 17:22 EDT , Service support ,
--- NOTE | 2020-03-14 16:12 | EKG12_ITS ---
Test Reason : SOB Blood Pressure : / mmHG Vent. Rate : 047 BPM Atrial Rate : 066 BPM P-R Int : 000 ms QRS Dur : 080 ms QT Int : 452 ms P-R-T Axes : 000 -39 008 degrees QTc Int : 400 ms Atrial fibrillation with slow ventricular response Left axis deviation Abnormal ECG Confirmed by DEMAR CARVAJAL, SANDY ([id number]), publishing editor EBONY BONDS ([id number]) on 03/17/2020 9:03:04 AM Referred By: BB Confirmed By:SANDY BENZ MD
--- NOTE | 2020-03-14 16:17 | ED.VIS.GEN ---
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 She states she was also swelling as a result, her doctor put her on Lasix, and that helped the swelling and the dyspnea which was occurring in episodes. She does not feel dyspneic at this time. A couple hours prior to arrival, she had relatively sudden onset of tingling in her lower face, as well as pressure throughout her head, with no other acute or different symptoms, although she reports positives to many review of systems that are not new today. She denies any fevers or cough. No chest pains. Some intermittent abdominal cramping that is not currently present. No nausea, vomiting, or watery diarrhea. No bright red blood per rectum or melena. She and state she has had some issues with bradycardia, with sometimes her heart rate going into the 30s. She has had no recent syncopal episodes. She felt a little lightheaded today, but just wants at the end of her warm-hot shower. When she got into the shower she had no lightheadedness, nor from bowel movements or standing up today. She has been drinking fluids. She had bypass heart surgery, she does not know if she has ever been diagnosed with congestive heart failure. She denies orthopnea. - Past Medical History (1) Atherosclerosis of coronary artery without angina pectoris Status: Chronic Comment: CABG x 2 [place] to D2, SVG to RCA 02/13/2012 (2) Breast cancer Status: Chronic (3) Colon cancer metastasized to liver Status: Chronic (4) Essential (primary) hypertension Status: Chronic (5) History of coronary artery stent placement Status: Chronic Comment: PCI-HARRIS-Cx w/ 2.5 x 16 mm Promus Premier and POBA-Prox LAD 12/04/13 (6) Hyperlipidemia Status: Chronic (7) Persistent atrial fibrillation Status: Chronic Past Medical History - Allergies and Home Meds Allergies/Adverse Reactions: Allergies hunt Allergy (Verified 03/14/20 15:50) Shortness of breath nadolol [From Corgard] Allergy (Verified 03/14/20 15:50) Hives Penicillins Allergy (Verified 03/14/20 15:50) Hives pitavastatin [From Livalo] Allergy (Verified 03/14/20 15:50) myalgia pravastatin sodium [From Pravachol] Allergy (Verified 03/14/20 15:50) Hives sulfite Allergy (Verified 03/14/20 15:50) Hives atorvastatin calcium [From Lipitor] Adverse Reaction (Verified 03/14/20 15:50) Pain in joints morphine Adverse Reaction (Verified 03/14/20 15:50) chest pain CHEST PAINS AND SOB Primary Care Physician: Vernon Grubbs MD [Primary Care Provider] - Surgical History: coronary bypass surgery, - - L CEA, T+A, Hysterectomy, Tongue surgery. lvier met surgery,colon cancer, left port. Lives: Spouse/ Significant Other Smoking Status: Never smoker - Family History Maternal Family History: Family History (Last Reviewed 09/22/19 @ 11:57 by PHYLLIS Johnson) Father CAD (coronary artery disease) Myocardial infarction, Onset Age: 45 Brother CAD (coronary artery disease) Myocardial infarction, Onset Age: 65 Mother Atrial fibrillation CHF (congestive heart failure) Pacemaker Sister Atrial fibrillation, Onset Age: 55 Family History: Reports: No pertinent history Paternal Family History: Family History (Last Reviewed 09/22/19 @ 11:57 by PHYLLIS Johnson) Father CAD (coronary artery disease) Myocardial infarction, Onset Age: 45 Brother CAD (coronary artery disease) Myocardial infarction, Onset Age: 65 Mother Atrial fibrillation CHF (congestive heart failure) Pacemaker Sister Atrial fibrillation, Onset Age: 55 Family History: Reports: No pertinent history Review of Systems General: Reports: Malaise. Denies: Chills, Fever, Sweats Eyes: Denies: Visual changes - bilaterally, Diplopia ENT: Denies: Bilateral ear pain, Rhinorrhea, Sore throat Cardiovascular: Denies: Chest pain, Palpitations Respiratory: Reports: Dyspnea. Denies: Cough, Orthopnea Gastrointestinal: Reports: Abdominal pain. Denies: Nausea, Vomiting, Diarrhea, Melena, Hematochezia Genitourinary: Denies: Dysuria, Hematuria, Frequency Musculoskeletal: Denies: Myalgias, Neck pain, Back pain, Swelling, Extremity Pain Skin: Denies: Rash, Wounds Neurological: Reports: Headache, Numbness. Denies: Weakness Physical Exam Vital Signs/Narrative: Vital Signs Temp Pulse Resp BP Pulse Ox 03/14/20 15:50 98.1 F 52 L 16 142/79 H 97 Inital Vital Signs reviewed: Yes General: Well nourished, Well developed, Obese, No Acute Distress Head: Normocephalic, Atraumatic Eyes: Perrl, EOMI ENT: Moist mucous membranes, No rhinorrhea Neck: Supple, Nontender Cardiovascular: Regular rate, Regular rhythm, No murmurs Respiratory: No distress, CTA bilaterally, Chest nontender Abdomen: Soft, Nontender, Nondistended, Normal bowel sounds Back: Nontender, Normal Inspection. Negative for: CVA tenderness Extremities: Nontender, Edema - trace pretibial symmetric BLE. Negative for: Calf Tenderness Skin: Normal color, No rash, No Trauma Neurological: Alert, Oriented x3, Cranial nerves II-XII grossly intact, Normal Strength, Normal Sensation, - - NIHSS - 0 Psychological: Normal affect, Normal Mood Diagnostic/Tx/Re-eval Impressions Brain CT 03/14/20 16:12 IMPRESSION: Chronic ischemic and involutional changes of the brain. Electronically Signed: Nathan Gagnon MD at 17:22 EDT , Service support , Chest X-Ray 03/14/20 16:52 IMPRESSION: Small right pleural effusion Electronically Signed: Nathan Gagnon MD at 17:24 EDT , Service support , 03/14/20 16:12 Brain/Head without Contrast [CT] Stat 03/14/20 16:52 Chest 1 View (Portable) [RAD] Stat Laboratory Results 03/14/20 03/14/20 16:41 16:41 WBC 5.1 RBC 3.68 L Hgb 13.0 Hct 38.9 MCV 105.7 H MCH 35.3 H MCHC 33.4 RDW Std Deviation 57.4 H RDW Coeff of [place] 14.7 H Plt Count 152 MPV 10.5 Immature Gran % (Auto) 0.400 Neut % (Auto) 63.1 Lymph % (Auto) 23.2 Haralson % (Auto) 12.5 H Eos % (Auto) 0.4 Baso % (Auto) 0.4 Absolute Neuts (auto) 3.2 Absolute Lymphs (auto) 1.17 Nucleated RBC % 0 Sodium 136 Potassium 4.2 Chloride 101 Carbon Dioxide 29.0 Anion Gap 6 BUN 30 H Creatinine 1.63 H Estim Creat Clear Calc 20.76 Est GFR (MDRD) Af Amer 39 L Est GFR (MDRD) Non-Af 33 L BUN/Creatinine Ratio 18.4 Glucose 66 L Calcium 8.8 Troponin I < 0.015 - Rhythm Strip Rhythm Strip: A-fib Rate: 47 Ectopy: None - EKG Initial EKG Interpretation: No Acute Injury Pattern, Atrial Fibrillation, LAFB Prior: Unchanged - Medical Decision Making My suspicion for TIA/stroke is low, since patient had her left lower face involved only. She states it involved her lip as well. At this time she has a hard time localizing it, saying it is only located just anteriorly and caudally to her left ear along her jawline but only for 1 or 2 cm-long spot/area. I am not able to objectively appreciate a difference in sensation here compared with surrounding areas or contralaterally. For this reason, at this time her NIHSS is 0. Also, since she is on Xarelto and has taken the medication in the last 24 hours, she is not an IV TPA candidate even if her symptoms were not resolving. She has been able to get around okay at home even though she has been feeling weak all over. Therefore given her headache and neurologic symptoms, CT was obtained, in addition to metabolic work-up, and a cardiac work-up, as well as a chest x-ray and urinalysis to evaluate for the possibility of infections given her immunocompromise state. Her work-up was unremarkable except for some mild renal insufficiency. She does have times where she becomes bradycardic into the 30s or 40s, but she is not acutely symptomatic from these episodes. She has had no near syncope or syncope. It appears she is on metoprolol 50 mg twice daily she was advised to cut this in half and follow-up with her doctor. I discussed with oncology on-call Dr. Jasso who will talk to her oncologist about the symptoms prior to the next treatment. ED Disposition - Plan for ED Patient: Disposition: Home or Assisted Living Diagnosis: Left facial numbness, Bradycardia, Persistent atrial fibrillation Instructions: ED Bradycardia, ED Paraesthesias Referrals: Vernon Grubbs MD [Primary Care Provider] - 3-5 Days if not improving (with regards to feeling lightheaded) Sujit Vasquez DO [STAFF PHYSICIAN] - Keep Paul appointment Additional Instructions: Cut your metoprolol in half, it appears you are currently on 50 mg twice daily, so cut it down to 25 mg twice daily.
--- NOTE | 2020-03-14 16:52 | RAD_ITS ---
STUDY: X-RAY CHEST REASON FOR EXAM: Female, 79 years old. SOB, FATIGUE, NAUSEA, TINGLING IN JAW TECHNIQUE: Single AP portable view of the chest. COMPARISON: February 21, 2019 FINDINGS: Stable right chest port and catheter. Reidentification of small right lower lobe pleural effusion and calcified nodule. No visualized consolidation or new opacity. Reidentification of surgical clips of the upper abdomen. Sternal cerclage wires and vascular clips are present from a prior sternotomy and coronary artery bypass graft procedure (CABG). Normal heart size. Stable osseous structures. RAD/Chest 1 View (Portable) IMPRESSION: Small right pleural effusion Electronically Signed: Nathan Gagnon MD at 17:24 EDT , Service support ,
[2020-03-14 17:08] LABS: Absolute Lymphocyte Count 1.17 X10^3/uL (0.83-4.51); Absolute Neutrophil Count 3.2 X10^3/uL (2.0-7.7); Basophil# 0.02 X10^3/uL; Basophil% 0.4 % (0-1); Eosinophil# 0.02 X10^3/uL; Eosinophils% 0.4 % (0-5); Hematocrit 38.9 % (37-47); Lymphocyte # 1.17 X10^3/ul (4.0); Lymphocyte % 23.2 % (19-41); Mean Corp Hgb Conc 33.4 g/dL (32-36); Mean Corpuscular Hgb 35.3 pg (27.0-32.0); Mean Corpuscular Volume 105.7 fL (81-99); Mean Platelet Vol. 10.5 fl (6.2-12.0); Monocyte# 0.63 X10^3/uL; Monocyte% 12.5 % (0-10); NRBC Flagged by Analyzer 0 % (0-5); Neutrophil # 3.19 X10^3/uL (2.7-7.7); Neutrophil % 63.1 % (47-70); Platelet Count 152 K/mm3 (150-450); RBC Distribution Width CV 14.7 % (11.6-14.6); RBC Distribution Width SD 57.4 fl (35.1-43.9); Red Blood Count 3.68 M/mm3 (4.2-5.4); White Blood Count 5.1 K/mm3 (4.4-11.0)
[2020-03-14 17:23] LABS: Anion Gap 6 (5-15); BUN 30 mg/dL (7-18); BUN/Creat Ratio 18.4 RATIO (10-20); Calcium,Total 8.8 mg/dL (8.5-10.1); Chloride 101 mmol/L (98-107); Creatinine, Serum 1.63 mg/dL (0.55-1.02); EST Glomerular Filtration Rate 33 mL/min (>60); Est Glom Filt Rate - Afr Amer 39 mL/min (>60); Estimated Creatinine Clearance 20.76 ml/min; Glucose 66 mg/dL (74-106); Potassium 4.2 mmol/L (3.5-5.1); Sodium Level 136 mmol/L (136-145)
[2020-03-14 17:56] VITALS: PULSE 61; RESP 18; O2SAT 98
[2020-03-14 19:04] LABS: Bacteria 0 SEEN /hpf (None Seen); Mucous, Urine 0 SEEN /hpf (<or=2+); Red Blood Cells-Urine 0 SEEN /hpf (0-5); Squamous Epithelial Cells - UA 0 SEEN /hpf (5-10)
[2020-03-14 19:06] LABS: Color, Urine Straw (Yellow); Glucose, Dipstick Normal (Normal); Ketone-Dipstick Negative (Negative); Leukocyte Esterase-Dipstick 100 /ul (Negative); Nitrite-Dipstick Negative (Negative); Occult Blood-Urine Negative /ul (Negative); Protein-Dipstick Negative (Negative); Urine Bilirubin Dipstick Negative (Negative); Urine Clarity Sl. Cloudy (Clear); Urine Urobilinogen Normal (Normal); Urine pH 6.5 (5.0 - 8.0)
[2020-03-14 19:18] VITALS: BP 157/88; PULSE 57; RESP 18; O2SAT 97
[2020-03-14 19:25] LABS: White Blood Cells 0-5 SEEN /hpf (0-5)
[2020-03-14 20:26] VITALS: BP 153/88; PULSE 67; RESP 17; O2SAT 97
== END 2020-03-14 20:26 | disposition home or self-care (01) ==
PROVIDERS: Emergency Provider Emergency Medicine; PCP Family Medicine
DX: R20.0 Anesthesia of skin (principal); R00.1 Bradycardia, unspecified; I48.19 Other persistent atrial fibrillation; R51 Headache; R20.2 Paresthesia of skin; C18.9 Malignant neoplasm of colon, unspecified; C78.7 Secondary malignant neoplasm of liver and intrahepatic bile duct; C78.00 Secondary malignant neoplasm of unspecified lung; I25.10 Atherosclerotic heart disease of native coronary artery without angina pectoris; I10 Essential (primary) hypertension; E78.5 Hyperlipidemia, unspecified; E66.9 Obesity, unspecified; Z79.01 Long term (current) use of anticoagulants; Z79.82 Long term (current) use of aspirin; Z79.899 Other long term (current) drug therapy; Z85.3 Personal history of malignant neoplasm of breast; Z95.5 Presence of coronary angioplasty implant and graft; Z95.1 Presence of aortocoronary bypass graft
CPT/HCPCS: 70450; 71045; 80048; 81001; 84484; 85025; 93005; 96360; 99284; J7040; A4216

== ENCOUNTER → 2020-03-19 13:22 | Outpatient (CLI) | payer MEDICARE, OTHER, SELFPAY ==
[2020-03-14 15:50] VITALS: BMI 39.2
== END ==
PROVIDERS: PCP Family Medicine; Referring Provider Family Medicine; Visit Provider Family Medicine
DX: J02.9 Acute pharyngitis, unspecified (principal)
CPT/HCPCS: 87635; U0003

== ENCOUNTER → 2020-05-25 11:56 | Outpatient (CLI) | payer MEDICARE, OTHER, SELFPAY ==
[2020-05-20 13:22] VITALS: BMI 36.8
== END ==
PROVIDERS: PCP Family Medicine; Referring Provider Internal Medicine Cardiovascular Disease; Visit Provider Internal Medicine Cardiovascular Disease
DX: I48.11 Longstanding persistent atrial fibrillation (principal)
CPT/HCPCS: 93225; 93226

== ENCOUNTER → 2020-06-07 10:14 | Outpatient (CLI) | payer MEDICARE, OTHER, SELFPAY ==
[2020-05-20 13:22] VITALS: BMI 36.8
--- NOTE | 2020-06-07 10:17 | RAD_ITS ---
STUDY: X-RAY - BILATERAL RIBS REASON FOR EXAM: Female, 79 years old. back pain TECHNIQUE: 6 view(s) of the ribs. COMPARISON: None. FINDINGS: Normal visualized ribs without a demonstrated fracture. Chronic interstitial changes noted in both lung pedersen with a calcified granuloma in the right lower lobe. Normal heart, mediastinum and pulmonary vivek. RAD/Ribs Bilat 3V No CXR IMPRESSION: No demonstrated rib fracture Electronically Signed: Kain Hernandez MD at 18:12 EDT , Service support ,
--- NOTE | 2020-06-07 10:17 | RAD_ITS ---
STUDY: X-RAY - LUMBAR SPINE REASON FOR EXAM: Female, 79 years old. back pain TECHNIQUE: 5 view(s) of the lumbar spine were obtained. COMPARISON: None FINDINGS: Normal lumbar lordosis. There is multilevel endplate spondylosis of the lumbar vertebrae. There is multi-level degenerative disc disease with multi-level disc space narrowing. There is atherosclerotic calcification of the abdominal aorta. RAD/L/S Spine Min 4 Views IMPRESSION: Degenerative changes of the spine. Electronically Signed: Quinten Rogers MD at 8:28 EDT Tel , Service support ,
== END ==
PROVIDERS: PCP Family Medicine; Referring Provider Family Medicine; Visit Provider Family Medicine
DX: M54.9 Dorsalgia, unspecified (principal)
CPT/HCPCS: 71110; 72110

== ENCOUNTER 2020-06-24 08:27 | Day surgery (SDC) | payer MEDICARE, OTHER, SELFPAY ==
[2020-05-20 13:22] VITALS: BMI 36.8
--- NOTE | 2020-06-10 11:33 | RAD_ITS ---
STUDY: X-RAY CHEST REASON FOR EXAM: Female, 79 years old. FOR [employer] VR IMPLANT ON 06/24/2020 TECHNIQUE: PA and lateral views of the chest. COMPARISON: Comparison is made with prior study 06/07/2020. FINDINGS: A right-sided portacatheter is seen with the tip in the right atrium. Hyperinflation. Stable calcified granulomas at the lung bases. There is no demonstrated pleural abnormality. Sternal cerclage wires and vascular clips are present from a prior sternotomy and coronary artery bypass graft procedure (CABG). Normal mediastinum and vivek. Normal visualized pulmonary arteries. There is atherosclerotic calcification of the aortic arch with tortuosity. There are diffuse degenerative changes of the visualized thoracic spine. Normal visualized ribs, clavicles, and shoulders. Surgical clips are seen in the right upper quadrant as well as along the lateral aspect of the left hemithorax. RAD/Chest PA and Lateral IMPRESSION: Stable examination. Electronically Signed: Wang Holt, at 12:31 EDT , Service support ,
[2020-06-10 11:46] LABS: Bacteria 0 SEEN /hpf (None Seen); Mucous, Urine 0 SEEN /hpf (<or=2+); Red Blood Cells-Urine 0 SEEN /hpf (0-5); Squamous Epithelial Cells - UA 0 SEEN /hpf (5-10); White Blood Cells 0 SEEN /hpf (0-5)
[2020-06-10 12:22] LABS: Hematocrit 41.7 % (37-47); Hemoglobin 13.4 g/dL (12.0-15.0); Mean Corp Hgb Conc 32.1 g/dL (32-36); Mean Corpuscular Hgb 34.8 pg (27.0-32.0); Mean Corpuscular Volume 108.3 fL (81-99); Mean Platelet Vol. 9.9 fl (6.2-12.0); Platelet Count 155 K/mm3 (150-450); RBC Distribution Width CV 14.6 % (11.6-14.6); Red Blood Count 3.85 M/mm3 (4.2-5.4); White Blood Count 3.9 K/mm3 (4.4-11.0)
[2020-06-10 12:25] LABS: Color, Urine Straw (Yellow); Glucose, Dipstick Normal (Normal); Ketone-Dipstick Negative (Negative); Leukocyte Esterase-Dipstick Negative /ul (Negative); Nitrite-Dipstick Negative (Negative); Occult Blood-Urine Negative /ul (Negative); Protein-Dipstick Negative (Negative); Specific Gravity, Urine 1.005 (1.002-1.030); Urine Bilirubin Dipstick Negative (Negative); Urine Clarity Clear (Clear); Urine Urobilinogen Normal (Normal)
[2020-06-10 12:37] LABS: International Normalized Ratio 1.4
[2020-06-10 13:00] LABS: Anion Gap 4 (5-15); BUN 20 mg/dL (7-18); BUN/Creat Ratio 12.9 RATIO (10-20); Calcium,Total 9.1 mg/dL (8.5-10.1); Chloride 102 mmol/L (98-107); Creatinine, Serum 1.55 mg/dL (0.55-1.02); EST Glomerular Filtration Rate 34 mL/min (>60); Est Glom Filt Rate - Afr Amer 42 mL/min (>60); Glucose 138 mg/dL (74-106); Potassium 3.9 mmol/L (3.5-5.1); Sodium Level 136 mmol/L (136-145)
[2020-06-23 07:32] VITALS: BMI 36.8
[2020-06-24] VITALS (15 sets, daily range): BP systolic 106–147; BP diastolic 61–79; PULSE 61–84; RESP 16–18; TEMP 36.2–36.7; O2SAT 96–100
--- NOTE | 2020-06-24 05:40 | HP_ITS ---
HPI HPI History of Present Illness Details: Details: DIANA COKER, is a 79 F who presents to the office today for a cardiovascular outpatient follow-up. She has a history of coronary artery disease status post carotid bypass surgery?2 in January 2012. She had a left internal mammary artery to the first diagonal vessel and a saphenous vein graft to the right coronary artery. She also in 2013 had a drug-eluting stent placed to the circumflex artery with a plain old balloon angioplasty to the left anterior descending artery. In addition she has a history of chronic atrial fibrillation, a left carotid endarterectomy in 2012, and colon carcinoma even after having a colonoscopy with liver and breast metastases. She has continued to follow-up with the oncologists. Her last visit was a few days ago. She has had some problems with her voice but otherwise no major issues. She has had no dizziness or diaphoresis no near syncope or syncope. You do remember that she was in the emergency room earlier this year and had her beta-bryce dose reduced because she was noted to be bradycardic. An EKG done at that time demonstrated atrial fibrillation with a rate of 47 bpm. She has had some shortness of breath and was noted to have a right pleural effusion and was placed on Lasix and has done better since then. She did undergo a thoracentesis in December 2018 previously. Her physical exam demonstrates clear lung pedersen irregular rate and rhythm and no pedal edema. Intake Vital Signs 05/20/20 Height 5 ft 3 in 05/20/20 Weight: 208 lb Intake Visit Reasons: 6 M FU (we r/s from 8-) Allergies hunt Allergy (Verified 03/14/20 15:50) Shortness of breath nadolol [From Corgard] Allergy (Verified 03/14/20 15:50) Hives Penicillins Allergy (Verified 03/14/20 15:50) Hives pitavastatin [From Livalo] Allergy (Verified 03/14/20 15:50) myalgia pravastatin sodium [From Pravachol] Allergy (Verified 03/14/20 15:50) Hives sulfite Allergy (Verified 03/14/20 15:50) Hives atorvastatin calcium [From Lipitor] Adverse Reaction (Verified 03/14/20 15:50) Pain in joints morphine Adverse Reaction (Verified 03/14/20 15:50) chest pain Medications Aspirin 81 mg PO DAILY 01/03/17 [History Confirmed 05/20/20] Cholecalciferol (Vitamin D3) [Vitamin D3] 4,000 unit PO DAILY 01/03/17 [History Confirmed 05/20/20] epinephrine 0.3 mg/0.3 mL injection, auto-injector 0.3 ml SC PRN PRN 1 Days #2 ea 08/17/17 [History Confirmed 05/20/20] hydrocortisone 2.5 % topical cream 1 applic TOPICAL TID PRN PRN 10 Days #30 08/17/17 [History Confirmed 05/20/20] montelukast 10 mg tablet 10 mg PO QDAY PRN tab 08/17/17 [History Confirmed 05/20/20] magnesium oxide 400 mg (241.3 mg magnesium) tablet 400 mg PO BID #180 tab 08/21/17 [Rx Confirmed 05/20/20] Omeprazole 40 mg PO DAILY 12/23/18 [History Confirmed 05/20/20] glimepiride 2 mg tablet 1 mg PO DAILY #90 tab 03/25/19 [History Confirmed 05/20/20] nitroglycerin 0.4 mg sublingual tablet 0.4 mg SUBLINGUAL Q5M PRN #25 tab 03/25/19 [Rx Confirmed 05/20/20] Albuterol IH (ProAir) [Proair Hfa (SP)Vent Pts] 2 puff INHALATION DAILY PRN 03/14/20 [History Confirmed 05/20/20] Fluticasone Furoate [Arnuity Ellipta] 100 mcg IH DAILY 03/14/20 [History Confirmed 05/20/20] Furosemide 40 mg PO BID 03/14/20 [History Confirmed 05/20/20] Loratadine [Claritin] 10 mg PO DAILY PRN 03/14/20 [History Confirmed 05/20/20] Losartan Potassium 25 mg PO BID 03/14/20 [History Confirmed 05/20/20] Nystatin [Mycostatin] 1 applic TOPICAL TID PRN 03/14/20 [History Confirmed 05/20/20] Ondansetron [Zofran] 8 mg PO Q8H PRN PRN 03/14/20 [History Confirmed 05/20/20] potassium chloride 20 mEq tablet,extended release(part/cryst) 20 meq PO DAILY #90 tab 03/30/20 [Rx Confirmed 05/20/20] isosorbide mononitrate 60 mg tablet,extended release 24 hr 60 mg PO DAILY #90 tab 04/02/20 [Rx Confirmed 05/20/20] rivaroxaban 15 mg tablet 15 mg PO DAILY #90 tab 04/23/20 [Rx Confirmed 05/20/20] simvastatin 20 mg tablet 20 mg PO QHS #90 tab 04/23/20 [Rx Confirmed 05/20/20] metoprolol tartrate 25 mg tablet 25 mg PO BID #180 tab 05/20/20 [Rx Confirmed 05/20/20] Ejection fraction %: 65 to 70 [facility] Medical History Pleural effusion on right (Chronic) Atherosclerosis of coronary artery without angina pectoris (Chronic) Longstanding persistent atrial fibrillation (Chronic) Essential (primary) hypertension (Chronic) Hyperlipidemia (Chronic) Breast cancer (Chronic) Colon cancer metastasized to liver (Chronic) Adenocarcinoma of colon (Chronic) Anemia of chronic disorder (Chronic) Carotid artery stenosis (Chronic) Diabetes mellitus, type II (Chronic) Hypomagnesemia (Chronic) Obesity (BMI 30-39.9) (Chronic) Old myocardial infarction (Chronic) Pleural effusion (Resolved) Non-rheumatic tricuspid valve insufficiency (Inactive) Nonrheumatic mitral (valve) insufficiency (Inactive) Palpitations (Inactive) Surgical History H/O coronary artery bypass surgery (Resolved 02/13/12) History of coronary artery stent placement (Chronic 12/04/13) History of colectomy (Chronic) History of left-sided carotid endarterectomy (Chronic 02/07/13) Hx of resection of liver (Chronic) History of appendectomy (Resolved) History of hysterectomy (Resolved) History of thoracentesis (Resolved) Family History Father CAD (coronary artery disease) Myocardial infarction, Onset Age: 45 Brother CAD (coronary artery disease) Myocardial infarction, Onset Age: 65 Mother , age 85 Atrial fibrillation CHF (congestive heart failure) Pacemaker Sister Atrial fibrillation, Onset Age: 55 Social History (Updated 05/20/20 @ 13:[address] Roland Cage MD) Smoking Status: Never smoker alcohol intake: never substance use type: does not use caffeine: Yes Type: carbonated beverages what type of physical activity do you participate in: none seatbelt use: always do you feel safe at home: Yes ROS Const Const: Positive for fatigue and weakness; negative for headache(s), frequent falls, difficulty sleeping or excessive sweating Eyes Eyes: Negative for loss of peripheral vision, transient loss of vision, blurry vision, double vision or tunnel vision ENT ENT: Negative for headache(s), dizziness, Nosebleed/epistaxis or balance problems Cardio Chest Pain: No Palpitations: No Edema: None Muscle aches with walking: None Resp Respiratory: Negative for SOB with activity, SOB at rest, SOB orthopnea\SOB lying down, Cough or paroxysmal nocturnal dyspnea GI GI: Negative nausea, vomiting, heartburn or black,tarry stools : Negative for hematuria Musc Musc: Negative for muscle aches/ myalgia, muscle weakness, joint pain or balance problems Skin Skin: Negative non-healing lesions, rash or unusual bruising Neuro Neuro: Positive for weakness; negative for dizziness, lightheadedness, near syncope, syncope, orthostatic symptoms, frequent falls, headache(s), blurry vision, double vision or lack of coordination Jose M Hematologic/Lymphatic: Negative for easy bleeding or easy bruising Endo Endo: Positive for fatigue; negative for excessive sweating or increased thirst/drinking Psych Psych: Negative for anxiety or depression Allergy Allergy/Immunology: Negative for hives, Negative for rash Cardiology Exam Const Appearance: cooperative, healthy appearing, no acute distress, well developed and well groomed Nutritional Appearance: average body habitus and well nourished Orientation: alert, awake and oriented x3 Head Head: normal to inspection, normocephalic and atraumatic Ears: hearing grossly normal bilaterally and external ears normal Nose: external nose normal, nares normal, nasal mucous membranes and turbinates normal, septum normal, no nasal discharge Face and Sinus: face symmetric Mouth: oral mucosae normal, tongue normal, oropharynx normal and moist mucous membranes Teeth and gingiva: dentition normal Throat: posterior oropharynx normal, tonsils normal and uvula midline Eyes General: appearance normal, both eyes and all related structures Eyelids: eyelids normal Conjunctivae: conjunctivae normal Pupils: PERRL, normal by confrontation and accommodation normal EOM: EOM intact bilaterally Neck Neck: normal visual inspection, trachea midline and no JVD JVD: +5 Carotids: normal carotid upstroke and bounding pulses Chest Chest inspection: normal inspection of the chest, symmetric chest movement and normal respiratory effort Auscultation: Bilateral: Clear to Auscultation Cardio Palpation: normal PMI Rate: regular rate Rhythm: regular rhythm Heart sounds: S1 normal, S2 normal and normal, physiologic split S2; negative rub, gallop or murmur GI GI: normal to inspection, soft, no hepatosplenomegaly and bowel sounds present Neuro General: alert, awake, oriented x3, gait normal, moves all extremities and no focal sensory deficit Skin Skin: no rashes or lesions noted Extremities Pulses: Normal: Right Femoral Pulse, Left Femoral Pulse, Right Dorsalis Pedis Pulse, Left Dorsalis Pedis Pulse, Right Posterior Tibial Pulse, Left Posterior Tibial Pulse, Right Radial Pulse, Left Radial Pulse Lower Extremity Edema: None: Bilateral Musculoskel Musculoskeletal: No joint tenderness Psych Psychological: normal affect Assessment & Plan 1. H/O coronary artery bypass surgery Z95.1 CABG x 2 [place] to D2, SVG to RCA 02/13/2012 Plan Status post coronary artery bypass surgery. She has not had any angina my recommendation is for us to continue monitoring this without making any changes. 2. Longstanding persistent atrial fibrillation I48.11 Plan Of longstanding persistent atrial fibrillation. I would like to assess her ventricular response rate by obtaining a 24 Holter monitor and depending on the findings further recommendations will then be made. Orders Orders: Cardiac Holter Monitor, Set-Up Today Cardiac Holter Monitor/Day Today 3. Essential (primary) hypertension I10 Plan Her blood pressure is under good control at the present time I would not recommend that we make any other changes. 4. Colon cancer metastasized to liver C18.9; C78.7 Plan She does have metastatic colon carcinoma with metastases she continues to follow-up with the oncologist she currently is on bevacizumab. 5. Chronic diastolic (congestive) heart failure I50.32 Plan She does have evidence of diastolic heart failure her last echocardiogram in December 2018 demonstrated an ejection fraction of 65% pulmonary systolic pressure of 32 mmHg and no wall motion abnormalities present. 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) Coding Level of Care Code Off vis,est,level 4 Diagnoses H/O coronary artery bypass surgery Z95.1 Longstanding persistent atrial fibrillation I48.11 Essential (primary) hypertension I10 Colon cancer metastasized to liver C18.9; C78.7 Chronic diastolic (congestive) heart failure I50.32 Coding Level of Care Code Off vis,est,level 4 Diagnoses H/O coronary artery bypass surgery Z95.1 Longstanding persistent atrial fibrillation I48.11 Essential (primary) hypertension I10 Colon cancer metastasized to liver C18.9; C78.7 Chronic diastolic (congestive) heart failure I50.32 Supplemental Info Supplemental Information Labs LDL Cholesterol 84 mg/dL (0-130) 03/05/20 HDL Cholesterol 68 mg/dL (40-) 03/05/20 Triglycerides 158 mg/dL (-199) 03/05/20 VLDL Cholesterol 32 mg/dL (5-40) 03/05/20 Diagnostics Electrocardiogram 03/14/20 Echocardiogram 01/17/19 Chest X-Ray 03/14/20
--- NOTE | 2020-06-24 12:10 | PCM.OP.PRO ---
Procedure Report Date of Procedure: 06/24/20 Diagnosis: Patient with symptomatic bradycardia and atrial fibrillation: [ ]. Planned procedure - insertion of VVI leadless pacemaker via right femoral vein (transcatheter pacing system) After informed consent and procedural antibiotics, the patient was brought to the catheterization laboratory and the right and left groins were prepped and draped in a sterile manner. Intermittent bolus of versed and fentanyl and 1% subcutaneous lidocaine were used for sedation and analgesia. Femoral vein access was achieved with Seldinger technique and confirmed by positioning of the guide wire into the superior vena cava under fluoroscopic guidance. Over the wire, the Eduarda dilator was used to dilate the femoral vein access up to 20Fr. The Eduarda dilator was removed. After thorough flushing of the sheath with heparinized saline, the 23Fr delivery sheath was inserted and advanced over the wire under fluoroscopic guidance to the floor of the right atrium. A bolus of intravenous heparin was administered. The delivery catheter and leadless pacemaker were then brought to the field and was flushed thoroughly with heparinized saline used to express all air distally. Saline flush also was used to flush the suture at the proximal end of the delivery sheath handle. Through the delivery sheath, the delivery catheter and leadless pacemaker were advanced through the sheath to the floor of the right atrium, under fluoroscopic guidance. The delivery catheter and pacemaker were advanced beyond the delivery sheath and with appropriate deflection and manipulation, the delivery catheter and pacemaker were advanced under fluoroscopic guidance (MEADOWS projection) across the tricuspid valve and into the right ventricle. In the KAITLIN projection, the delivery sheath was positioned in firm apposition with the right ventricular septal wall. Contrast injection confirmed firm contact with the right ventricular wall along the septum and excluded an apical position. The delivery sheath was then flushed with heparinized saline. The leadless pacemaker was then deployed and the delivery sheath was pulled back to an adequate position to complete the tug test. Under a magnified view with cine imaging, the tug test was completed and confirmed no less than 2 of the 4 tines were in excellent contact with the myocardium and there was no dislodgement of the pacemaker. Testing was performed of the device and acceptable sensing, impedance and capture were confirmed. The testing of the pacemaker was repeated multiple times and confirmed to be adequate and stable. The delivery sheath was flushed again with heparinized saline. One end of the suture was then cut and the suture was slowly withdrawn from the delivery sheath. Once the suture was removed, the pacemaker was tested again and confirmed appropriate and stable electrical parameters. There was no change in position of the device after suture was removed. The delivery catheter and sheath were then removed from the right femoral vein. Hemostasis was obtained with surgical purse string closure with use of 3 way stopcock and manual pressure. Protamine was then administered. Patient left the room in stable condition with the pacemaker programmed to appropriate parameters. There were no complications. Device product information, electrical data and serial number are provided in the chart.
[2020-06-24] MEDS: Acetaminophen 325 MG Tablet 650 MG PO ×2 (16:09→21:12)
[2020-06-24] MEDS: Furosemide 40 MG Tablet PO (21:12)
[2020-06-24] MEDS: Magnesium Chloride 64 MG Delay Rel.Tablet 128 MG PO (21:12)
[2020-06-24] MEDS: Losartan Potassium 25 MG Tablet PO (21:12)
[2020-06-24] MEDS: Metoprolol Tartrate 25 MG Tablet PO (21:12)
[2020-06-25 02:00] VITALS: BP 129/81; PULSE 60; RESP 14; TEMP 36.9; O2SAT 96
[2020-06-25 04:59] VITALS: PULSE 62
--- NOTE | 2020-06-25 06:41 | PCM.PN.CARD ---
Subjectve: Patient seen and evaluated. Appears to be doing well. Objective: Vital Signs Temp Pulse Resp BP Pulse Ox 98.5 F 62 14 129/81 H 96 06/25/20 02:00 06/25/20 04:59 06/25/20 02:00 06/25/20 02:00 06/25/20 02:00 Oxygen Flow Rate (L/min) 2 Oxygen Delivery Method CPAP Weight: 208 lb Body Mass Index (BMI) 36.8 Finger Stick Blood Glucose 126 Intake and Output for Last 24 Hours 06/23/20 06/24/20 06/25/20 23:59 23:59 23:59 Intake Total 957 / 1057 160 / 160 Output Total 125 / 425 750 / 750 Balance 832 / 632 -590 / -590 General: Awake, Alert, Oriented x 3 HEENT: PERRL, EOMI, Sclera Non Icteric Neck: Supple, Good ROM, No Lymph Node Enlargement Lungs: Clear to auscultation Cardiovascular: Regular Rhythm, Normal S1, Normal S2, No Murmurs, No Rubs, No Gallops Vascular: No Carotid Bruits, Normal Femoral Pulses, Normal Radial Pulses, Normal Dorsalis Pedal Pulse, Normal Posterior Tibial Pulses Abdomen: Bowel Sounds Present, Soft, Non Tender, No HSM, No Organomegaly Extremities: No Cyanosis, No Clubbing, No edema Neurological: No Focal Motor or Sensory Deficit Rhythm: EKG: ECHO: Stress Test: Cardiac Cath: PCI: CT Surgery: Holter monitor: EPS: PPM: CXR: Chest CT Scan: Medical Necessity - Tobacco Use Smoking Status: Never smoker Assessment/Plan 1. Status post VVI pacemaker Micra placement for atrial fibrillation with slow ventricular response rate. Patient appears to be doing well at this time. Will have pacemaker interrogation and then be discharged for outpatient follow-up. Will recommend resume anticoagulation on Sunday.
[2020-06-25 07:00] VITALS: PULSE 62
[2020-06-25 07:50] VITALS: O2SAT 99
[2020-06-25 07:53] VITALS: BP 125/56; PULSE 70; RESP 16; TEMP 36.5; O2SAT 99
[2020-06-25] MEDS: Glimepiride 1 MG Tablet PO (08:35)
[2020-06-25] MEDS: Furosemide 40 MG Tablet PO (08:35)
[2020-06-25] MEDS: Losartan Potassium 25 MG Tablet PO (08:35)
[2020-06-25] MEDS: Aspirin 81 MG TAB.CHEW PO (08:35)
[2020-06-25 08:36] VITALS: BP 125/56; PULSE 70
[2020-06-25] MEDS: Magnesium Chloride 64 MG Delay Rel.Tablet 128 MG PO (08:36)
[2020-06-25] MEDS: Metoprolol Tartrate 25 MG Tablet PO (08:36)
--- NOTE | 2020-06-25 09:09 | DCINST_ITS ---
Discharge Diet: No Restrictions Discharge Activity: May Not Drive Call your doctor if your incision/area has: Continuous Slow Oozing, Sudden Increased Bleeding, Increased Pain/ Swelling, Increased Redness, Foul Smelling Discharge, Swelling at the incision site Call your doctor if you observe: Fever of 101 or Higher, Shortness of breath, Dizziness, Fainting spells, Swelling in the ankles, Chest pain, Prolonged hiccoughing, Increased palpitations (irregular heartbeat) Additional Dressing/Incision Instructions:: When dressing is removed, wash and dry incision. Keep covered with a light bandage if it is rubbing against your clothing. Do not cover the incision with an airtight bandage. Change the bandage daily. Do not remove steri strips. The strips will fall off on their own. Additional Instructions: Signs and Symptoms to Report to Your Doctor at Once - call your doctor's office or Doctor's Registry ([phone]) Call 911 or go to the nearest Emergency Department if you feel you need urgent care. *Infection (fever, increased redness or swelling at the incision site, drainage from the incision increased pain at the pacemaker site) *Shortness of breath *Dizziness *Fainting spells *Swelling in the ankles *Chest pain *Prolonged hiccoughing *Increased palpitaitons (irregular heartbeat) Medications: Take your pain medication as directed. Refer to your discharge instruction sheet for a list of medications you are to take. Allergies/Adverse Reactions: Allergies hunt Allergy (Verified 03/14/20 15:50) Shortness of breath nadolol [From Corgard] Allergy (Verified 03/14/20 15:50) Hives Penicillins Allergy (Verified 03/14/20 15:50) Hives pitavastatin [From Livalo] Allergy (Verified 03/14/20 15:50) myalgia pravastatin sodium [From Pravachol] Allergy (Verified 03/14/20 15:50) Hives sulfite Allergy (Verified 03/14/20 15:50) Hives atorvastatin calcium [From Lipitor] Adverse Reaction (Verified 03/14/20 15:50) Pain in joints morphine Adverse Reaction (Verified 03/14/20 15:50) chest pain CHEST PAINS AND SOB Medications to take at Discharge Aspirin 81 mg PO DAILY 01/03/17 Cholecalciferol (Vitamin D3) [Vitamin D3] 4,000 unit PO DAILY 01/03/17 epinephrine 0.3 mg/0.3 mL injection, auto-injector 0.3 ml SC PRN PRN 1 Days #2 ea 08/17/17 hydrocortisone 2.5 % topical cream 1 applic TOPICAL TID PRN PRN 10 Days #30 08/17/17 montelukast 10 mg tablet 10 mg PO QDAY PRN tab 08/17/17 magnesium oxide 400 mg (241.3 mg magnesium) tablet 400 mg PO BID #180 tab 08/21/17 Omeprazole 40 mg PO DAILY 12/23/18 glimepiride 2 mg tablet 1 mg PO DAILY #90 tab 03/25/19 nitroglycerin 0.4 mg sublingual tablet 0.4 mg SUBLINGUAL Q5M PRN #25 tab 03/25/19 Albuterol IH (ProAir) [Proair Hfa (SP)Vent Pts] 2 puff INHALATION DAILY PRN 03/14/20 Fluticasone Furoate [Arnuity Ellipta] 100 mcg IH DAILY 03/14/20 Furosemide 40 mg PO BID 03/14/20 Loratadine [Claritin] 10 mg PO DAILY PRN 03/14/20 Losartan Potassium 25 mg PO BID 03/14/20 Nystatin [Mycostatin] 1 applic TOPICAL TID PRN 03/14/20 Ondansetron [Zofran] 8 mg PO Q8H PRN PRN 03/14/20 potassium chloride 20 mEq tablet,extended release(part/cryst) 20 meq PO DAILY #90 tab 03/30/20 isosorbide mononitrate 60 mg tablet,extended release 24 hr 60 mg PO DAILY #90 tab 04/02/20 rivaroxaban 15 mg tablet 15 mg PO DAILY #90 tab 04/23/20 simvastatin 20 mg tablet 20 mg PO QHS #90 tab 04/23/20 metoprolol tartrate 25 mg tablet 25 mg PO BID #180 tab 05/20/20 Primary Care Physician: Vernon Grubbs MD [Primary Care Provider] - Test Results: Test results from this visit will be discussed in further detail at your follow- up appointment, if applicable. When: [facility] Jun AT 2:30 Proposed Discharge Date: 06/25/20
[2020-06-25] MEDS: 0.9% Saline Lock 10 ML Syringe IV (12:01)
--- NOTE | 2020-06-25 15:21 | NURSING ---
Read and reviewed SN documentation
== END 2020-06-25 09:10 | disposition home or self-care (01) ==
LOC: CLSP 08:31 → PCU 06-25 08:20
PROVIDERS: PCP Family Medicine; Referring Provider Internal Medicine Cardiovascular Disease; Visit Provider Internal Medicine Cardiovascular Disease
DX: I48.11 Longstanding persistent atrial fibrillation (principal); Z95.1 Presence of aortocoronary bypass graft; C18.9 Malignant neoplasm of colon, unspecified; C78.7 Secondary malignant neoplasm of liver and intrahepatic bile duct; I11.0 Hypertensive heart disease with heart failure; I50.32 Chronic diastolic (congestive) heart failure; E78.5 Hyperlipidemia, unspecified; I25.10 Atherosclerotic heart disease of native coronary artery without angina pectoris; Z85.3 Personal history of malignant neoplasm of breast; E11.9 Type 2 diabetes mellitus without complications; E66.9 Obesity, unspecified; I25.2 Old myocardial infarction; Z95.5 Presence of coronary angioplasty implant and graft; Z79.82 Long term (current) use of aspirin; Z79.01 Long term (current) use of anticoagulants; Z79.899 Other long term (current) drug therapy
CPT/HCPCS: 33274; 36415; 71046; 80048; 81001; 85027; 85610; 99152; 99153; C1894; J7040; Q9967; A4216; C1769

== ENCOUNTER 2021-03-13 18:14 | Observation (INO) | payer MEDICARE, OTHER, SELFPAY ==
[2020-12-30 12:37] VITALS: BMI 39.8
[2021-03-13 18:16] VITALS: BP 135/70; PULSE 65; RESP 23; TEMP 35.9; O2SAT 98; BMI 83.9
--- NOTE | 2021-03-13 18:41 | EKG12_ITS ---
Test Reason : DYSRHYTHMIA Blood Pressure : / mmHG Vent. Rate : 065 BPM Atrial Rate : 070 BPM P-R Int : 000 ms QRS Dur : 132 ms QT Int : 454 ms P-R-T Axes : 000 097 -56 degrees QTc Int : 472 ms Atrial fibrillation with pacing Non-specific intra-ventricular conduction block Anterolateral infarct , age undetermined T wave abnormality, consider inferior ischemia Abnormal ECG Confirmed by DEMAR CARVAJAL, SANDY ([id number]), editor department EBONY BONDS ([id number]) on 03/14/2021 11:50:48 AM Referred By: ABELARDO Confirmed By:SANDY BENZ MD
[2021-03-13 19:08] VITALS: PULSE 77; RESP 25; O2SAT 96; O2SAT 99
[2021-03-13 19:36] LABS: Absolute Lymphocyte Count 1.41 X10^3/uL (0.83-4.51); Absolute Neutrophil Count 3.2 X10^3/uL (2.0-7.7); Basophil# 0.02 X10^3/uL; Basophil% 0.4 % (0-1); Eosinophil# 0.03 X10^3/uL; Eosinophils% 0.6 % (0-5); Hematocrit 30.9 % (37-47); Hemoglobin 9.8 g/dL (12.0-15.0); Lymphocyte # 1.41 X10^3/ul (0.83-4.51); Lymphocyte % 26.4 % (19-41); Mean Corp Hgb Conc 31.7 g/dL (32-36); Mean Corpuscular Hgb 30.6 pg (27.0-32.0); Mean Corpuscular Volume 96.6 fL (81-99); Mean Platelet Vol. 9.9 fl (6.2-12.0); Monocyte# 0.72 X10^3/uL; Monocyte% 13.5 % (0-10); NRBC Flagged by Analyzer 0 % (0-5); Neutrophil # 3.15 X10^3/uL (2.7-7.7); Neutrophil % 58.7 % (47-70); Platelet Count 187 K/mm3 (150-450); RBC Distribution Width CV 17.4 % (11.6-14.6); RBC Distribution Width SD 60.4 fl (35.1-43.9); White Blood Count 5.4 K/mm3 (4.4-11.0)
--- NOTE | 2021-03-13 19:40 | EDS_ITS ---
HPI History of Present Illness Chief Complaint: Syncope Narrative Narrative: 80-year-old female presenting with near syncope. Patient states that she was sitting in [facility] that she started to become very dizzy. She stated to her she needed to get out of there. She tried to leave with her and became more lightheaded. She states that things sort of went black. He helped her to the ground. She did not lose consciousness. Currently she feels no dizziness. She denies any chest pain prior to the event but did state that when she was ambulating out of the [facility] she started to feel short of breath. She is not had a fever, chills, cough. Patient is on Eliquis for A. fib. [facility] Medical History Adenocarcinoma of colon Anemia of chronic disorder Atherosclerosis of coronary artery without angina pectoris Breast cancer Carotid artery stenosis Chronic diastolic (congestive) heart failure Colon cancer metastasized to liver Diabetes mellitus, type II Essential (primary) hypertension History of asthma Hyperlipidemia Hypomagnesemia Longstanding persistent atrial fibrillation Obesity (BMI 30-39.9) Old myocardial infarction Pleural effusion Pleural effusion on right Sick sinus syndrome Sinus pause (05/25/20) Symptomatic bradycardia Home Medications aspirin 81 mg PO DAILY 01/03/17 [History Last Taken 06/24/20] cholecalciferol (vitamin D3) 4,000 unit PO DAILY 01/03/17 [History Last Taken Unknown] epinephrine 0.3 mg/0.3 mL injection, auto-injector 0.3 ml SC PRN PRN 1 Days #2 ea 08/17/17 [History Last Taken Unknown] hydrocortisone 2.5 % topical cream 1 applic TOPICAL TID PRN PRN 10 Days #30 08/17/17 [History Last Taken Unknown] montelukast 10 mg tablet 10 mg PO QDAY PRN tab 08/17/17 [History Last Taken Unknown] omeprazole 40 mg PO DAILY 12/23/18 [History Last Taken 06/24/20] glimepiride 2 mg tablet 1 mg PO DAILY #90 tab 03/25/19 [History Last Taken Unknown] albuterol sulfate 2 puff INHALATION DAILY PRN 03/14/20 [History Last Taken Unknown] fluticasone furoate 100 mcg IH DAILY 03/14/20 [History Last Taken Unknown] furosemide 40 mg PO BID 03/14/20 [History Last Taken Unknown] loratadine 10 mg PO DAILY PRN 03/14/20 [History Last Taken Unknown] losartan 50 mg PO DAILY 03/14/20 [History Last Taken Unknown] potassium chloride 20 mEq tablet,extended release(part/cryst) 20 meq PO DAILY #90 tab 03/30/20 [Rx Last Taken 06/24/20] isosorbide mononitrate 60 mg tablet,extended release 24 hr 60 mg PO DAILY #90 tab 04/02/20 [Rx Last Taken 06/24/20] simvastatin 20 mg tablet 20 mg PO QHS #90 tab 04/23/20 [Rx Last Taken Unknown] metoprolol tartrate 25 mg tablet 25 mg PO BID #180 tab 05/20/20 [Rx Last Taken 06/24/20] acyclovir 400 mg tablet 400 mg PO BID tab 12/30/20 [History Last Taken Unknown] magnesium oxide 400 mg (241.3 mg magnesium) tablet 400 mg PO TID tab 12/30/20 [History Last Taken Unknown] nitroglycerin 0.4 mg sublingual tablet 0.4 mg SUBLINGUAL Q5M PRN #25 tab 12/30/20 [Rx Last Taken Unknown] ondansetron HCl 8 mg tablet 8 mg PO DAILY tab 12/30/20 [History Last Taken Unknown] rivaroxaban 15 mg tablet 15 mg PO DAILY #90 tab 12/30/20 [Rx Last Taken Unknown] Allergy/AdvReac Type Severity Reaction Status Date / Time castellano Allergy Shortness Verified 03/13/21 18:15 of breath nadolol [From Corgard] Allergy Hives Verified 03/13/21 18:15 Penicillins Allergy Hives Verified 03/13/21 18:15 pitavastatin [From Livalo] Allergy myalgia Verified 03/13/21 18:15 pravastatin sodium Allergy Hives Verified 03/13/21 18:15 [From Pravachol] sulfite Allergy Hives Verified 03/13/21 18:15 atorvastatin calcium AdvReac Pain in Verified 03/13/21 18:15 [From Lipitor] joints morphine AdvReac chest pain Verified 03/13/21 18:15 Family History Father CAD (coronary artery disease) Myocardial infarction, Onset Age: 45 Brother CAD (coronary artery disease) Myocardial infarction, Onset Age: 65 Mother , age 85 Atrial fibrillation CHF (congestive heart failure) Pacemaker Sister Atrial fibrillation, Onset Age: 55 Surgical History (Updated 03/13/21 @ 19:20 by Juan Antonio Hobbs) H/O coronary artery bypass surgery (02/13/12) History of appendectomy History of cholecystectomy History of colectomy History of coronary artery stent placement (12/04/13) History of hysterectomy History of left-sided carotid endarterectomy (02/07/13) History of lumpectomy of left breast History of permanent cardiac pacemaker placement (06/24/20) History of thoracentesis History of tonsillectomy and adenoidectomy Hx of resection of liver Social History Smoking Status: Never smoker alcohol intake: never substance use type: does not use caffeine: Yes Type: carbonated beverages what type of physical activity do you participate in: none seatbelt use: always do you feel safe at home: Yes ROS ROS ED Constitutional Constitutional ED: Denies chills or fever(s) Eyes Eyes: Reports other ENT ENT ED: Denies rhinorrhea Cardiovascular Cardiovascular: Denies chest pain or palpitations Respiratory/Chest Respiratory/Chest: Reports dyspnea and dyspnea on exertion; Denies cough Gastrointestinal Gastrointestinal: Denies abdominal pain, nausea or vomiting Genitourinary Genitourinary ED: Denies dysuria or hematuria Musculoskeletal Musculoskeletal: Denies arthralgias or myalgias Integumentary Denies abscess or rash Neurologic Neurologic: Denies headache(s) or paresthesias Psychiatric Psychiatric: Denies depression EXAM Physical Exam Const Vital Signs: 03/13/21 18:16 03/13/21 19:08 03/13/21 19:22 Temperature 96.6 F L Temperature Source Temporal Pulse Rate 65 77 Pulse Rate [Lying] Pulse Rate [Sitting] Pulse Rate [Standing] Respiratory Rate 23 H 25 H Respiratory Effort Normal Respiratory Pattern Normal Blood Pressure 135/70 H Blood Pressure [Lying] Blood Pressure [Sitting] Blood Pressure [Standing] Blood Pressure Mean 91 Blood Pressure Mean [Lying] Blood Pressure Mean [Sitting] Blood Pressure Mean [Standing] Pulse Ox 98 96 Oxygen Delivery Method Room Air Room Air 03/13/21 19:43 07/18/21 21:00 Temperature Temperature Source Pulse Rate 105 H Pulse Rate [Lying] 85 Pulse Rate [Sitting] 86 Pulse Rate [Standing] 83 Respiratory Rate 15 Respiratory Effort Respiratory Pattern Blood Pressure 134/68 H Blood Pressure [Lying] 128/64 H Blood Pressure [Sitting] 124/88 H Blood Pressure [Standing] 131/74 H Blood Pressure Mean 90 Blood Pressure Mean [Lying] 85 Blood Pressure Mean [Sitting] 100 Blood Pressure Mean [Standing] 93 Pulse Ox 99 Oxygen Delivery Method Room Air Positive obese General Appearance ED: NAD Nutritional Appearance: obese HEENT Reports dry mucous membranes Negative for trauma Mouth ED: Yes dry mucous membranes Mouth: dry mucous membranes Eyes PERRL and EOMs intact bilaterally General Eye ED: Negative for pale conjunctiva Resp normal respiratory effort and clear to auscultation bilaterally Cardio regular rate and regular rhythm Neuro oriented x3 and CN's II-XII intact bilaterally Psych mental status grossly normal Skin no rashes or lesions noted MDM MDM MDM Narrative Medical decision making narrative: Patient presenting with near syncopal event today in [facility]. She states he did not go completely unconscious. She denies any chest pain. She states she was a little short of breath when she was lightheaded but is asymptomatic currently. She has a pacemaker that was put in in May for sick sinus syndrome. This was done by Dr. Cage. EKG performed on arrival by my interpretation shows a ventricular rate of 65 bpm with occasional PVCs which I presume is her paced rhythm although I do not see any pacer spikes. Chest x-ray shows no acute cardiopulmonary process on my interpretation and the radiologist does agree. Patient's white blood cell count is 5.4. Patient's hemoglobin is 9.8 which is her baseline. There was a couple of times previously when she had elevated hemoglobin. She states this correlates to the time when she had liver resection and bleeding issues and had to be transfused. Looking back previously this appears to be near her baseline. She denies black or bloody stools. Patient's renal function is actually better than her most recent baseline. Troponin is 9.3. Patient feeling well sitting in the bed. When I tried to get up her up and ambulate her her heart rate shoots up into the 130s and she throws multiple PVCs in a row on the monitor. Patient states she feels like she has pressure in her head when she stands. She states this is not the sensation that she had earlier in the day with lightheadedness. I interrogated her pacemaker and the interrogation showed that it was functioning normally however now she has a heart rate of 100. She is throwing PVCs while sitting in the bed. Given my concern for her falling after a near syncopal episode and being on anticoagulation I opted to have her admitted to the hospital for observation. Impression: 1. Near syncope Lab Data Labs: Laboratory Results - last 24 hr 03/13/21 03/13/21 19:08 19:08 WBC 5.4 RBC 3.20 L Hgb 9.8 L Hct 30.9 L MCV 96.6 MCH 30.6 MCHC 31.7 L RDW Std Deviation 60.4 H RDW Coeff of [place] 17.4 H Plt Count 187 MPV 9.9 Immature Gran % (Auto) 0.400 Neut % (Auto) 58.7 Lymph % (Auto) 26.4 [place] % (Auto) 13.5 H Eos % (Auto) 0.6 Baso % (Auto) 0.4 Absolute Neuts (auto) 3.2 Absolute Lymphs (auto) 1.41 Nucleated RBC % 0 Sodium 139 Potassium 3.6 Chloride 106 Carbon Dioxide 24.0 Anion Gap 9 BUN 16 Creatinine 1.14 H Estim Creat Clear Calc 33.64 Est GFR (MDRD) Af Amer 59 L Est GFR (MDRD) Non-Af 49 L BUN/Creatinine Ratio 14.0 Glucose 116 H Calcium 8.6 Troponin I High Sens 9.3 Radiography Diagnostic Testing: Radiology Impression Chest X-Ray 03/13/21 19:50 IMPRESSION: Right lower lobe atelectasis. Electronically Signed: Michael Nunes MD at 20:15 EDT Tel , Service support , Discharge Plan Triage Chief Complaint: Syncope ED Provider: Azeem Molina Dx/Rx/DC Orders Prescriptions: No Action epinephrine 0.3 mg/0.3 mL auto-injector 0.3 ml SC PRN PRN (Reason: allergic reaction) 1 Days Qty: 2 RF: 0 montelukast 10 mg tablet 10 mg PO QDAY PRN (Reason: CASTELLANO) RF: 0 hydrocortisone 2.5 % cream 1 applic TOPICAL TID PRN PRN (Reason: Rash/Topical Irritation) 10 Days Qty: 30 RF: 0 glimepiride 2 mg tablet 1 mg PO DAILY Qty: 90 RF: 0 metoprolol tartrate 25 mg tablet 25 mg PO BID Qty: 180 RF: 3 magnesium oxide 400 mg (241.3 mg magnesium) tablet 400 mg PO TID RF: 0 acyclovir 400 mg tablet 400 mg PO BID RF: 0 Xarelto 15 mg tablet 15 mg PO DAILY Qty: 90 RF: 3 nitroglycerin 0.4 mg tablet, sublingual 0.4 mg SUBLINGUAL Q5M PRN (Reason: Cardiac/Chest Pain) Qty: 25 RF: 3 aspirin 81 MG tablet,chewable 81 mg PO DAILY RF: 0 cholecalciferol (vitamin D3) 2,000 UNIT capsule 4,000 unit PO DAILY RF: 0 omeprazole 20 MG tablet,delayed release (DR/EC) 40 mg PO DAILY RF: 0 albuterol sulfate 1 PUFF inhaler 2 puff inhalation DAILY PRN (Reason: Sob &/Or Wheezing) RF: 0 loratadine 10 MG tablet 10 mg PO DAILY PRN (Reason: Allergies) RF: 0 fluticasone furoate 100 MCG blister with device 100 mcg IH DAILY RF: 0 furosemide 40 MG tablet 40 mg PO BID RF: 0 losartan 25 MG tablet 50 mg PO DAILY RF: 0 ondansetron HCl 8 mg tablet 8 mg PO DAILY RF: 0 potassium chloride 20 mEq tablet,ER particles/crystals 20 meq PO DAILY Qty: 90 RF: 4 isosorbide mononitrate 60 mg tablet extended release 24 hr 60 mg PO DAILY Qty: 90 RF: 4 simvastatin 20 mg tablet 20 mg PO QHS Qty: 90 RF: 4 Primary Care Provider: Vernon Grubbs
[2021-03-13 19:43] VITALS: BP 124/88; BP 128/64; BP 131/74; PULSE 83; PULSE 85; PULSE 86
--- NOTE | 2021-03-13 19:50 | RAD_ITS ---
STUDY: X-RAY CHEST REASON FOR EXAM: Female, 80 years old. SYNCOPE , weakness colon cancer with metastases TECHNIQUE: Frontal and lateral views of the chest COMPARISON: 10 June 2020 FINDINGS: There is no pneumothorax, pulmonary edema, cardiac megaly or pleural effusions. Infusion port is present in the right upper chest terminating with its tip in the mid right atrium. There are sternotomy wires. There is right lower lobe atelectasis and calcified nodule. Osseous structures are intact. There are surgical clips in the right upper quadrant, likely liver related surgery. RAD/Chest PA and Lateral IMPRESSION: Right lower lobe atelectasis. Electronically Signed: Michael Nunes MD at 20:15 EDT Tel , Service support ,
[2021-03-13 19:53] LABS: Anion Gap 9 (5-15); BUN 16 mg/dL (7-18); Calcium,Total 8.6 mg/dL (8.5-10.1); Chloride 106 mmol/L (98-107); Creatinine, Serum 1.14 mg/dL (0.55-1.02); EST Glomerular Filtration Rate 49 mL/min (>60); Est Glom Filt Rate - Afr Amer 59 mL/min (>60); Estimated Creatinine Clearance 33.64 ml/min; Glucose 116 mg/dL (74-106); Potassium 3.6 mmol/L (3.5-5.1); Sodium Level 139 mmol/L (136-145); Troponin-I HS 9.3 pg/mL (3.0-53.7)
[2021-03-13 21:00] VITALS: BP 134/68; PULSE 105; RESP 15; O2SAT 99
[2021-03-13 23:00] VITALS: BP 152/138; PULSE 95; RESP 22; O2SAT 98
[2021-03-14] VITALS (14 sets, daily range): BP systolic 110–176; BP diastolic 62–154; PULSE 62–132; RESP 12–26; TEMP 35.7–36.8; O2SAT 96–99; BMI 32.0
--- NOTE | 2021-03-14 00:24 | HP.PCM.HOS_ITS ---
[facility] - General General Date of Admission: 03/14/21 HPI Narrative DIANA COKER, is a 80 F with an extensive PMH as outlined who presented via the ED with a complaint of near syncope. She was sitting in a pew [facility] [employer] and started feeling very dizzy. She got up to walk out and she became very dizzy and nearly fell. She has a pacemaker in place. Her HR was in the 60s. She felt very dizzy and lightheaded. Her Hb was 9.8, and she denied any chest pain, palpitations, nausea or vomiting. Review of systems was otherwise negative. Hb is usually ~ 7-9. She denied any dark stools. Troponin was 9.3. Review of systems was otherwise negative. on ambulation, her HR went up to hte 130s, with associated PVCs. REview of systems was otherwise negative. Her pacemaker was interrogated and it was functional. EKG showed no acute ST changes. She is being admitted to be managed for near syncope. [facility] Medical History Adenocarcinoma of colon Anemia of chronic disorder Atherosclerosis of coronary artery without angina pectoris Breast cancer Carotid artery stenosis Chronic diastolic (congestive) heart failure Colon cancer metastasized to liver Diabetes mellitus, type II Essential (primary) hypertension History of asthma Hyperlipidemia Hypomagnesemia Longstanding persistent atrial fibrillation Obesity (BMI 30-39.9) Old myocardial infarction Pleural effusion Pleural effusion on right Sick sinus syndrome Sinus pause (05/25/20) Symptomatic bradycardia Home Medications aspirin 81 mg PO DAILY 01/03/17 [History Last Taken 06/24/20] cholecalciferol (vitamin D3) 4,000 unit PO DAILY 01/03/17 [History Last Taken Unknown] epinephrine 0.3 mg/0.3 mL injection, auto-injector 0.3 ml SC PRN PRN 1 Days #2 ea 08/17/17 [History Last Taken Unknown] hydrocortisone 2.5 % topical cream 1 applic TOPICAL TID PRN PRN 10 Days #30 08/17/17 [History Last Taken Unknown] montelukast 10 mg tablet 10 mg PO QDAY PRN tab 08/17/17 [History Last Taken Unknown] omeprazole 40 mg PO DAILY 12/23/18 [History Last Taken 06/24/20] glimepiride 2 mg tablet 1 mg PO DAILY #90 tab 03/25/19 [History Last Taken Unknown] albuterol sulfate 2 puff INHALATION DAILY PRN 03/14/20 [History Last Taken Unknown] fluticasone furoate 100 mcg IH DAILY 03/14/20 [History Last Taken Unknown] furosemide 40 mg PO BID 03/14/20 [History Last Taken Unknown] loratadine 10 mg PO DAILY PRN 03/14/20 [History Last Taken Unknown] losartan 50 mg PO DAILY 03/14/20 [History Last Taken Unknown] potassium chloride 20 mEq tablet,extended release(part/cryst) 20 meq PO DAILY #90 tab 03/30/20 [Rx Last Taken 06/24/20] isosorbide mononitrate 60 mg tablet,extended release 24 hr 60 mg PO DAILY #90 tab 04/02/20 [Rx Last Taken 06/24/20] simvastatin 20 mg tablet 20 mg PO QHS #90 tab 04/23/20 [Rx Last Taken Unknown] metoprolol tartrate 25 mg tablet 25 mg PO BID #180 tab 05/20/20 [Rx Last Taken 06/24/20] acyclovir 400 mg tablet 400 mg PO BID tab 12/30/20 [History Last Taken Unknown] magnesium oxide 400 mg (241.3 mg magnesium) tablet 400 mg PO TID tab 12/30/20 [History Last Taken Unknown] nitroglycerin 0.4 mg sublingual tablet 0.4 mg SUBLINGUAL Q5M PRN #25 tab 12/30/20 [Rx Last Taken Unknown] ondansetron HCl 8 mg tablet 8 mg PO DAILY tab 12/30/20 [History Last Taken Unknown] rivaroxaban 15 mg tablet 15 mg PO DAILY #90 tab 12/30/20 [Rx Last Taken Unknown] Allergy/AdvReac Type Severity Reaction Status Date / Time hunt Allergy Shortness Verified 03/13/21 18:15 of breath nadolol [From Corgard] Allergy Hives Verified 03/13/21 18:15 Penicillins Allergy Hives Verified 03/13/21 18:15 pitavastatin [From Livalo] Allergy myalgia Verified 03/13/21 18:15 pravastatin sodium Allergy Hives Verified 03/13/21 18:15 [From Pravachol] sulfite Allergy Hives Verified 03/13/21 18:15 atorvastatin calcium AdvReac Pain in Verified 03/13/21 18:15 [From Lipitor] joints morphine AdvReac chest pain Verified 03/13/21 18:15 Family History Father CAD (coronary artery disease) Myocardial infarction, Onset Age: 45 Brother CAD (coronary artery disease) Myocardial infarction, Onset Age: 65 Mother , age 85 Atrial fibrillation CHF (congestive heart failure) Pacemaker Sister Atrial fibrillation, Onset Age: 55 Surgical History H/O coronary artery bypass surgery (02/13/12) History of appendectomy History of cholecystectomy History of colectomy History of coronary artery stent placement (12/04/13) History of hysterectomy History of left-sided carotid endarterectomy (02/07/13) History of lumpectomy of left breast History of permanent cardiac pacemaker placement (06/24/20) History of thoracentesis History of tonsillectomy and adenoidectomy Hx of resection of liver Social History Smoking Status: Never smoker alcohol intake: never substance use type: does not use caffeine: Yes Type: carbonated beverages what type of physical activity do you participate in: none seatbelt use: always do you feel safe at home: Yes ROS Review of Systems ROS Unobtainable: Denies due to encephalopathy Constitutional Constitutional: Denies anorexia, chills, fatigue, malaise or weakness Eyes Eyes: Denies double vision or loss of vision ENT HEENT: Denies dysphagia, headache(s), nasal congestion, nasal discharge, sinus pressure or sore throat Cardiovascular Cardiovascular: Reports lightheadedness, palpitations, rapid heart rate and other Details: near syncope ; Denies chest pain, claudication, dyspnea on exertion, edema, orthopnea, paroxysmal nocturnal dyspnea or syncope Respiratory/Chest Respiratory/Chest: Denies cough, dyspnea, hemoptysis, productive cough, shortness of breath at rest or shortness of breath with exertion Gastrointestinal Gastrointestinal: Denies abdominal pain, constipation, diarrhea, dyspepsia, loose stools, nausea or vomiting Genitourinary Genitourinary: Denies burning urination, dysuria or urinary frequency Musculoskeletal Musculoskeletal: Denies arthralgias, joint pain, joint stiffness or joint swelling Neurologic Neurologic: Reports dizziness; Denies confusion, focal weakness, seizure-like activity, seizures or syncope Psychiatric Psychiatric: Denies anxiety or depression Hematologic/Lymphatic Hematologic/Lymphatic: Denies anemia Allergic/Immunologic Allergic/Immunologic: Denies asthma Vital Signs Vital Signs Vital Signs: 03/13/21 18:16 03/13/21 19:08 03/13/21 19:22 Temperature 96.6 F L Temperature Source Temporal Pulse Rate 65 77 Pulse Rate [Lying] Pulse Rate [Sitting] Pulse Rate [Standing] Respiratory Rate 23 H 25 H Respiratory Effort Normal Respiratory Pattern Normal Blood Pressure 135/70 H Blood Pressure [Lying] Blood Pressure [Sitting] Blood Pressure [Standing] Blood Pressure Mean 91 Blood Pressure Mean [Lying] Blood Pressure Mean [Sitting] Blood Pressure Mean [Standing] Pulse Ox 98 96 Oxygen Delivery Method Room Air Room Air 03/13/21 19:43 03/13/21 21:00 Temperature Temperature Source Pulse Rate 105 H Pulse Rate [Lying] 85 Pulse Rate [Sitting] 86 Pulse Rate [Standing] 83 Respiratory Rate 15 Respiratory Effort Respiratory Pattern Blood Pressure 134/68 H Blood Pressure [Lying] 128/64 H Blood Pressure [Sitting] 124/88 H Blood Pressure [Standing] 131/74 H Blood Pressure Mean 90 Blood Pressure Mean [Lying] 85 Blood Pressure Mean [Sitting] 100 Blood Pressure Mean [Standing] 93 Pulse Ox 99 Oxygen Delivery Method Room Air Weight Weight: 473 lb 15.901 oz Body Mass Index (BMI) 83.9 Physical Exam Const alert, oriented x3 and no apparent distress General Appearance: cooperative HEENT normocephalic, head/scalp atraumatic and hearing grossly normal bilaterally HEENT Narrative: dry mucosal membranes Eyes PERRL, EOMs intact bilaterally and conjunctivae normal Neck no lymphadenopathy, supple and no carotid bruits Resp normal respiratory effort, no retractions, no use of accessory muscles and clear to auscultation bilaterally Cardio regular rhythm, S1 normal heart sound, S2 normal heart sound and no murmurs Cardio Narrative: afib, episodic tachycardia, with HR ranging from low 90s to 120s on the monitor GI normal to inspection, nondistended, normoactive bowel sounds, soft to palpation, non-tender and non-distended Extremity normal to inspection, full ROM and no clubbing, cyanosis or edema Peripheral Pulses: Yes pulses 2+ throughout Skin no rashes or lesions noted Neuro oriented x3, CN's II-XII intact bilaterally and moves all extremities Sensorium / Orientation: awake and alert Motor Exam: strength 5/5 throughout Psych affect normal Results Lab / Micro Data Result Diagrams: 03/13/21 19:08 03/13/21 19:08 Labs: Laboratory Results - last 24 hr 03/13/21 19:08: WBC 5.4, RBC 3.20 L, Hgb 9.8 L, Hct 30.9 L, MCV 96.6, MCH 30.6, MCHC 31.7 L, RDW Std Deviation 60.4 H, RDW Coeff of [place] 17.4 H, Plt Count 187, MPV 9.9, Immature Gran % (Auto) 0.400, Neut % (Auto) 58.7, Lymph % (Auto) 26.4, [place] % (Auto) 13.5 H, Eos % (Auto) 0.6, Baso % (Auto) 0.4, Absolute Neuts (auto) 3.2, Absolute Lymphs (auto) 1.41, Nucleated RBC % 0 03/13/21 19:08: Sodium 139, Potassium 3.6, Chloride 106, Carbon Dioxide 24.0, Anion Gap 9, BUN 16, Creatinine 1.14 H, Estim Creat Clear Calc 33.64, Est GFR (MDRD) Af Amer 59 L, Est GFR (MDRD) Non-Af 49 L, BUN/Creatinine Ratio 14.0, Glucose 116 H, Calcium 8.6, Troponin I High Sens 9.3 Radiology Impression Chest X-Ray 03/13/21 19:50 IMPRESSION: Right lower lobe atelectasis. Electronically Signed: Michael Nunes MD at 20:15 EDT Tel , Service support , Assessment & Plan Assessment/Plan (1) Near syncope: (2) Tachycardia: PLAN: #Near syncope * patient had an episode of near syncope at [employer]. started having tachycardia on admission, with associated PVCs; however, at time of rview, she had ep isodic afib with RVR * pacemaker interrogation showed it was functioning well * admit to PCU * fall precautions * PT/OT consult * consult cardiologyh in light of tachycardia * 2D echo * electrolytes WNL * check orthostatics * #Afib with RVR * patient's metoprolol resumed. Heart rate has fluctuated from the low 90s to the 120s. We will therefore hold off on starting Cardizem drip now. IV Lopressor as needed. * Resume patient's oral metoprolol. * on xarelto * #Sick sinus syndrome s/p pacemaker insertion * stable. pacemaker interrogation was unremarkable * #Anemia * Hb is 9.8 previous levels were 13 in May 2020 * denies any dark stools or coffee ground emesis * will trend Hb * check iron panel as well and ferritin * #CAD s/p CABG: on aspirin, statin, metoprolol and imdur. #Afib: on metoprolol and xarelto #Hypertension: on metoprolol and losartan #Hyperlipidemia: on statin. #history of metastatic colon cancer * has mets to the brain and the liver. * on oral chemotherapy * follows up with Dr Vasquez on outpatient basis. #History of shingles: says she has had shingles thrice. Now on acyclovir for prophylaxis from shingles #History of HFpeF * EF from echo in 2019 was 65%, with indeterminate diastolic dysfunction * on lasix * DVT prophylaxis: on xarelto Code status: full code * Patient counseled extensively about different types of CODE STATUS including full code, DNR CCA and DNR CCA. Patient elects to be full code. Total [id number] time 17 minutes. Charges/Coding Visit Charges OBSV E&M: 71552 Initial observation care L3 Procedures Hospitalists Procedures: 42806 Advncd Care Plan 30 Min
[2021-03-14] MEDS: Metoprolol Tartrate 25 MG Tablet PO (01:25)
--- NOTE | 2021-03-14 02:50 | ECHOCS_ITS ---
Reason For Study: Arrhythmia Procedure This was a 2D Doppler, Color Flow transthoracic echocardiogram. Contrast injection was performed. Exam performed portable in patient room. Left Ventricle Normal LV size. Moderate concentric left ventricular hypertrophy. Left ventricular systolic function is normal. The estimated ejection fraction is 55 %. No regional wall motion abnormalities noted. Right Ventricle Normal RV size. Normal systolic function. Atria The left atrium is mildly enlarged. Normal right atrium. Mitral Valve Normal mitral valve. Tricuspid Valve Normal tricuspid valve. Mild (1+) tricuspid valve insufficiency. Pulmonary artery systolic pressure is 38 mmHg. Aortic Valve Trisinus/trileaflet aortic valve. Pulmonic Valve Normal pulmonic valve. Great Vessels Calcified aortic root. The pulmonary artery is normal size. Normal inferior vena cava. Pericardium/Pleural No pericardial effusion. Medication Diluted definity 2.4ml given slow IV push to enhance endocardial definition. MMode/2D Measurements & Calculations LVIDd: 4.0 cm IVSd: 1.4 cm Ao root diam: 3.5 cm LVIDs: 2.8 cm LVPWd: 1.3 cm RVDd: 5.1 cm FS: 29.8 % LAV(MOD-bp): 56.9 ml LVAd ap4: 23.0 cm2 SV(MOD-sp4): 34.6 ml LAV(MOD-bp) Indexed: 30.7 ml/m2 LVLd ap4: 7.3 cm LAV(MOD-sp2): 49.1 ml EDV(MOD-sp4): 60.4 ml LAV(MOD-sp4): 63.3 ml EDV(sp4-el): 61.5 ml LVAs ap4: 12.7 cm2 LVLs ap4: 5.6 cm ESV(MOD-sp4): 25.8 ml ESV(sp4-el): 24.8 ml EF(MOD-sp4): 57.3 % EF(sp4-el): 59.7 % SV(sp4-el): 36.7 ml LA A4 area: 21.4 cm2 LA dimension(2D): 3.9 cm RA A4 area: 18.3 cm2 Doppler Measurements & Calculations MV E max saundra: 93.2 cm/sec Ao V2 max: 140.4 cm/sec LV V1 max: 91.0 cm/sec Ao max P.9 mmHg LV V1 max P.3 mmHg Ao V2 mean: 98.4 cm/sec Ao mean P.3 mmHg Ao V2 VTI: 30.1 cm PA V2 max: 91.0 cm/sec TR max saundra: 290.5 cm/sec TR max P.8 mmHg ECHO/Echo Complete W/ Contrast Interpretation Summary Normal LV size. Moderate concentric left ventricular hypertrophy. Left ventricular systolic function is normal. The estimated ejection fraction is 55 %. Mild (1+) tricuspid valve insufficiency. Pulmonary artery systolic pressure is 38 mmHg. Contrast injection was performed. Ordering Physician: Inna Pyle Referring Physician: Vernon Grubbs Performed By: Mili Cordero, ARAMIS, RVT
--- NOTE | 2021-03-14 04:05 | CPS ---
Patient says that she wears ASV PAP at home. Does not have machine here at the hospital. Would like to wear PAP tonight during stay. PRODUCT SAFETY COMPLIANCE LEADER unable to view any past settings or hx of BiPAP usage at this hospital. Patient reports having both obstructive and central apneic events per her last sleep study. For this reason, PRODUCT SAFETY COMPLIANCE LEADER placed patient on AVAPS BiPAP therapy for tonight. Will bring in machine sometime during the day today.
[2021-03-14] MEDS: Acetaminophen 325 MG Tablet 650 MG PO (05:51)
[2021-03-14 06:43] LABS: Absolute Lymphocyte Count 1.14 X10^3/uL (0.83-4.51); Absolute Neutrophil Count 2.9 X10^3/uL (2.0-7.7); Basophil# 0.02 X10^3/uL; Basophil% 0.4 % (0-1); Eosinophil# 0.06 X10^3/uL; Eosinophils% 1.2 % (0-5); Hematocrit 30.4 % (37-47); Hemoglobin 9.5 g/dL (12.0-15.0); Lymphocyte # 1.14 X10^3/ul (0.83-4.51); Lymphocyte % 23.1 % (19-41); Mean Corp Hgb Conc 31.3 g/dL (32-36); Mean Corpuscular Hgb 30.5 pg (27.0-32.0); Mean Corpuscular Volume 97.7 fL (81-99); Mean Platelet Vol. 9.8 fl (6.2-12.0); Monocyte# 0.76 X10^3/uL; Monocyte% 15.4 % (0-10); NRBC Flagged by Analyzer 0 % (0-5); Neutrophil # 2.93 X10^3/uL (2.7-7.7); Neutrophil % 59.5 % (47-70); Platelet Count 181 K/mm3 (150-450); RBC Distribution Width CV 17.8 % (11.6-14.6); RBC Distribution Width SD 62.7 fl (35.1-43.9); Red Blood Count 3.11 M/mm3 (4.2-5.4); White Blood Count 4.9 K/mm3 (4.4-11.0)
[2021-03-14 07:22] LABS: Anion Gap 6 (5-15); BUN 16 mg/dL (7-18); BUN/Creat Ratio 15.4 RATIO (10-20); Calcium,Total 8.4 mg/dL (8.5-10.1); Chloride 107 mmol/L (98-107); Creatinine, Serum 1.04 mg/dL (0.55-1.02); EST Glomerular Filtration Rate 54 mL/min (>60); Est Glom Filt Rate - Afr Amer 66 mL/min (>60); Estimated Creatinine Clearance 36.88 ml/min; Glucose 145 mg/dL (74-106); Magnesium 1.5 mg/dL (1.6-2.6); Potassium 3.6 mmol/L (3.5-5.1); Sodium Level 139 mmol/L (136-145); Thyroid Stim Hormone (TSH) 3.73 uIU/mL (0.358-3.74)
[2021-03-14 13:43] LABS: Iron 28 ug/dL (50-170); Iron Binding Capacity,Total 338 ug/dL (250-450); PERCENT IRON SATURATION 8.3 % (15.0-55.0)
--- NOTE | 2021-03-14 15:02 | CHAPLAIN ---
Type of Pastoral Visit _x__ Initial Visit ___ Follow-up Visit ___ On-call Visit ___ General Patient Visit ___ Spiritual Assessment ___ Family Conference ___ Bereavement ___ Rapid Response ___ Code Blue ___ Other (describe below) Pastoral Care Referral From _x__ Patient ___ Family ___ Nurse ___ Physician ___ Instructor [employer] ___ Jd Edwards ___ Other (describe below) Sacrament/Intervention _x__ Active listening ___ Anointing ___ Moravian ___ Bereavement ___ Communion ___ Paula exploration ___ _x__ Life review ___ Prayer ___ Reconciliation ___ Sacrament of Sick _x__ Supportive presence ___ Wedding ___ Other (describe below) Pastoral Comments patient reveals that spouse has cancer and will likely this year; pt herself has had cancer for 5+ years; pt is supported by priest of [facility] [employer] and her children
[2021-03-14] MEDS: 0.9 % NaCl (Sterile) Posiflush 10 mL IV (15:28)
--- NOTE | 2021-03-14 15:28 | PCM.DC ---
Discharge Instructions Diet Discharge Diet: No restrictions Activity Discharge Activity: Return to Normal Activity Weight Bearing Status: Full weight bearing Follow Up Care Test Results: Test results from this visit will be discussed in further detail at your follow-up appointment, if applicable. Discharge Plan Admission Admit Date/Time: 03/14/21 02:48 Primary Reason for Your Visit: near syncope Attending Provider: Christiano Carbajal Primary Care Provider: Vernon Grubbs Instructions Additional Instructions / Restrictions: Obtain over the counter Ferrous sulfate 325 mg and take one twice a day Discharge Orders/Prescriptions Prescriptions: New ferrous sulfate 325 mg (65 mg iron) tablet 325 mg PO BID Qty: 1 RF: 0 Continued epinephrine 0.3 mg/0.3 mL auto-injector 0.3 ml SC PRN PRN (Reason: allergic reaction) 1 Days Qty: 2 RF: 0 montelukast 10 mg tablet 10 mg PO QDAY PRN (Reason: CASTELLANO) RF: 0 hydrocortisone 2.5 % cream 1 applic TOPICAL TID PRN PRN (Reason: Rash/Topical Irritation) 10 Days Qty: 30 RF: 0 glimepiride 2 mg tablet 1 mg PO DAILY Qty: 90 RF: 0 magnesium oxide 400 mg (241.3 mg magnesium) tablet 400 mg PO TID RF: 0 acyclovir 400 mg tablet 400 mg PO BID RF: 0 Xarelto 15 mg tablet 15 mg PO DAILY Qty: 90 RF: 3 nitroglycerin 0.4 mg tablet, sublingual 0.4 mg SUBLINGUAL Q5M PRN (Reason: Cardiac/Chest Pain) Qty: 25 RF: 3 aspirin 81 MG tablet,chewable 81 mg PO DAILY RF: 0 cholecalciferol (vitamin D3) 2,000 UNIT capsule 4,000 unit PO DAILY RF: 0 omeprazole 20 MG tablet,delayed release (DR/EC) 40 mg PO DAILY RF: 0 albuterol sulfate 1 PUFF inhaler 2 puff inhalation DAILY PRN (Reason: Sob &/Or Wheezing) RF: 0 loratadine 10 MG tablet 10 mg PO DAILY PRN (Reason: Allergies) RF: 0 fluticasone furoate 100 MCG blister with device 100 mcg IH DAILY RF: 0 furosemide 40 MG tablet 40 mg PO BID RF: 0 losartan 25 MG tablet 50 mg PO DAILY RF: 0 ondansetron HCl 8 mg tablet 8 mg PO DAILY RF: 0 potassium chloride 20 mEq tablet,ER particles/crystals 20 meq PO DAILY Qty: 90 RF: 4 isosorbide mononitrate 60 mg tablet extended release 24 hr 60 mg PO DAILY Qty: 90 RF: 4 simvastatin 20 mg tablet 20 mg PO QHS Qty: 90 RF: 4 Changed metoprolol tartrate 25 mg tablet 50 mg PO BID Qty: 180 RF: 3 Referrals / Follow Up: Vernon Grubbs MD [Primary Care Provider] - Within 2 Weeks Disposition Disposition (needs filled in before D/C Order can be placed): Home, Self Care
--- NOTE | 2021-03-14 15:55 | PCM.DC.SUM ---
Providers Date of Admission: 03/14/21 Date of Discharge: 03/14/21 Primary Care Physician: Dr. Vernon Grubbs MD Reason For Visit: SYNCOPE, AFIB WITH RVR Diagnosis Discharge Diagnosis (1) Near syncope: Status: Acute Code(s): R55 - Syncope and collapse (2) Tachycardia: Status: Acute Code(s): R00.0 - Tachycardia, unspecified Plan: 1. Near syncope secondary to tachycardia #2 paroxysmal tachycardia from chronic uncontrolled atrial fibrillation #3 colon cancer #4 hypomagnesemia #5 iron deficiency anemia #6 mild pulmonary hypertension Medications at Discharge Home Medications aspirin 81 mg PO DAILY 01/03/17 cholecalciferol (vitamin D3) 4,000 unit PO DAILY 01/03/17 epinephrine 0.3 mg/0.3 mL injection, auto-injector 0.3 ml SC PRN PRN 1 Days #2 ea 08/17/17 hydrocortisone 2.5 % topical cream 1 applic TOPICAL TID PRN PRN 10 Days #30 08/17/17 montelukast 10 mg tablet 10 mg PO QDAY PRN tab 08/17/17 omeprazole 40 mg PO DAILY 12/23/18 glimepiride 2 mg tablet 1 mg PO DAILY #90 tab 03/25/19 albuterol sulfate 2 puff INHALATION DAILY PRN 03/14/20 fluticasone furoate 100 mcg IH DAILY 03/14/20 furosemide 40 mg PO BID 03/14/20 loratadine 10 mg PO DAILY PRN 03/14/20 losartan 50 mg PO DAILY 03/14/20 potassium chloride 20 mEq tablet,extended release(part/cryst) 20 meq PO DAILY #90 tab 03/30/20 isosorbide mononitrate 60 mg tablet,extended release 24 hr 60 mg PO DAILY #90 tab 04/02/20 simvastatin 20 mg tablet 20 mg PO QHS #90 tab 04/23/20 acyclovir 400 mg tablet 400 mg PO BID tab 12/30/20 magnesium oxide 400 mg (241.3 mg magnesium) tablet 400 mg PO TID tab 12/30/20 nitroglycerin 0.4 mg sublingual tablet 0.4 mg SUBLINGUAL Q5M PRN #25 tab 12/30/20 ondansetron HCl 8 mg tablet 8 mg PO DAILY tab 12/30/20 rivaroxaban 15 mg tablet 15 mg PO DAILY #90 tab 12/30/20 ferrous sulfate 325 mg PO BID #1 tab 03/14/21 metoprolol tartrate 50 mg PO BID #180 tab 03/14/21 Hospital Course Operations None Procedures 2-D Echocardiogram Summary of Care Provided Minutes Spent on Discharge: 30 Hospital Course: This 80-year-old white female was seen in the emergency room at [facility] after suffering a near syncopal episode on 03/13/2021. Patient has a history of chronic atrial fibrillation and sick sinus syndrome, she does have a pacemaker. Work-up in the emergency room included labs which were abnormal for a low hemoglobin at 9.5, chemistry was abnormal for creatinine at 1.04, telemetry strips in the emergency room showed the patient to have periods of atrial fibrillation with tachycardia when she was ambulated in the emergency room. Patient's pacemaker was interrogated in the emergency room and it was functioning normally. Patient was placed in observation status on PCU, she was monitored and had brief episodes of increased heart rate into the 130s and 140s which were asymptomatic. Patient had an echocardiogram performed which showed a normal EF and evidence of mild pulmonary hypertension. Patient had a serum iron level drawn due to her anemia, it showed an iron deficiency and I talked briefly with her oncologist about this (Dr. Vasquez) I also talked with the patient's dispatcher relay briefly by phone (Dr. Cage) about the patient's hospital course and he agreed that increasing the patient's beta-bryce probably would be the easiest treatment for the patient. Patient was okay with this. On 03/14/2021, patient was seen and examined: On examination she appeared in good health and spirits, she does not appear to be in any distress. Vital signs as documented. Skin warm and dry and without overt rashes. Neck without JVD, thyroid appears normal, trachea is midline, neck is supple. Lungs clear, normal air movement was noted. Heart exam notable for irregular rhythm, normal sounds and absence of murmurs, rubs or gallops. Abdomen unremarkable and without evidence of organomegaly, masses, or abdominal aortic enlargement, bowel sounds are present in all 4 quadrants, no abdominal tenderness was noted. Extremities nonedematous, no cyanosis was noted, no clubbing was noted. Neuro: Cranial nerves II through XII are grossly intact, no focal motor deficits were noted, sensation to light touch and pinprick is intact, motor exam 5/5 throughout. Psych: Patient is alert and oriented x3, she does not appear anxious or depressed, she does not appear agitated. On 03/14/2021, patient appears stable for discharge home, she was discharged. Weight / BMI Weight Weight: 82 kg Body Mass Index (BMI) 32.0 ABG / Lab / Microbiology Data Result Diagrams: 03/14/21 06:30 03/14/21 06:30 Laboratory: Laboratory Results - last 24 hr 03/13/21 19:08: WBC 5.4, RBC 3.20 L, Hgb 9.8 L, Hct 30.9 L, MCV 96.6, MCH 30.6, MCHC 31.7 L, RDW Std Deviation 60.4 H, RDW Coeff of [place] 17.4 H, Plt Count 187, MPV 9.9, Immature Gran % (Auto) 0.400, Neut % (Auto) 58.7, Lymph % (Auto) 26.4, Avery % (Auto) 13.5 H, Eos % (Auto) 0.6, Baso % (Auto) 0.4, Absolute Neuts (auto) 3.2, Absolute Lymphs (auto) 1.41, Nucleated RBC % 0 03/13/21 19:08: Sodium 139, Potassium 3.6, Chloride 106, Carbon Dioxide 24.0, Anion Gap 9, BUN 16, Creatinine 1.14 H, Estim Creat Clear Calc 33.64, Est GFR (MDRD) Af Amer 59 L, Est GFR (MDRD) Non-Af 49 L, BUN/Creatinine Ratio 14.0, Glucose 116 H, Calcium 8.6, Troponin I High Sens 9.3 03/14/21 06:30: WBC 4.9, RBC 3.11 L, Hgb 9.5 L, Hct 30.4 L, MCV 97.7, MCH 30.5, MCHC 31.3 L, RDW Std Deviation 62.7 H, RDW Coeff of [place] 17.8 H, Plt Count 181, MPV 9.8, Immature Gran % (Auto) 0.400, Neut % (Auto) 59.5, Lymph % (Auto) 23.1, Avery % (Auto) 15.4 H, Eos % (Auto) 1.2, Baso % (Auto) 0.4, Absolute Neuts (auto) 2.9, Absolute Lymphs (auto) 1.14, Nucleated RBC % 0 03/14/21 06:30: Sodium 139, Potassium 3.6, Chloride 107, Carbon Dioxide 26.0, Anion Gap 6, BUN 16, Creatinine 1.04 H, Estim Creat Clear Calc 36.88, Est GFR (MDRD) Af Amer 66, Est GFR (MDRD) Non-Af 54 L, BUN/Creatinine Ratio 15.4, Glucose 145 H, Calcium 8.4 L, Magnesium 1.5 L, TSH 3.73 03/14/21 06:30: Iron 28 L, TIBC 338, Iron Saturation 8.3 L Radiography Diagnostic Testing: Radiology Impression Chest X-Ray 03/13/21 19:50 IMPRESSION: Right lower lobe atelectasis. Electronically Signed: Michael Nunes MD at 20:15 EDT Tel , Service support , Echocardiogram 03/14/21 02:50 Interpretation Summary Normal LV size. Moderate concentric left ventricular hypertrophy. Left ventricular systolic function is normal. The estimated ejection fraction is 55 %. Mild (1+) tricuspid valve insufficiency. Pulmonary artery systolic pressure is 38 mmHg. Contrast injection was performed. Ordering Physician: Inna Pyle Referring Physician: Vernon Grubbs Performed By: Mili Cordero, ARAMIS, RVT D/C Instructions Discharge Diet: No restrictions Weight Bearing Status: Full weight bearing Meaningful Use Info Meaningful Use Diagnoses (Choose all that apply): None applicable Discharge Plan Admission Admit Date/Time: 03/14/21 02:48 Primary Reason for Your Visit: near syncope Attending Provider: Christiano Carbajal Primary Care Provider: Vernon Grubbs Instructions Additional Instructions / Restrictions: Obtain over the counter Ferrous sulfate 325 mg and take one twice a day Discharge Orders/Prescriptions Prescriptions: New ferrous sulfate 325 mg (65 mg iron) tablet 325 mg PO BID Qty: 1 RF: 0 Continued epinephrine 0.3 mg/0.3 mL auto-injector 0.3 ml SC PRN PRN (Reason: allergic reaction) 1 Days Qty: 2 RF: 0 montelukast 10 mg tablet 10 mg PO QDAY PRN (Reason: CASTELLANO) RF: 0 hydrocortisone 2.5 % cream 1 applic TOPICAL TID PRN PRN (Reason: Rash/Topical Irritation) 10 Days Qty: 30 RF: 0 glimepiride 2 mg tablet 1 mg PO DAILY Qty: 90 RF: 0 magnesium oxide 400 mg (241.3 mg magnesium) tablet 400 mg PO TID RF: 0 acyclovir 400 mg tablet 400 mg PO BID RF: 0 Xarelto 15 mg tablet 15 mg PO DAILY Qty: 90 RF: 3 nitroglycerin 0.4 mg tablet, sublingual 0.4 mg SUBLINGUAL Q5M PRN (Reason: Cardiac/Chest Pain) Qty: 25 RF: 3 aspirin 81 MG tablet,chewable 81 mg PO DAILY RF: 0 cholecalciferol (vitamin D3) 2,000 UNIT capsule 4,000 unit PO DAILY RF: 0 omeprazole 20 MG tablet,delayed release (DR/EC) 40 mg PO DAILY RF: 0 albuterol sulfate 1 PUFF inhaler 2 puff inhalation DAILY PRN (Reason: Sob &/Or Wheezing) RF: 0 loratadine 10 MG tablet 10 mg PO DAILY PRN (Reason: Allergies) RF: 0 fluticasone furoate 100 MCG blister with device 100 mcg IH DAILY RF: 0 furosemide 40 MG tablet 40 mg PO BID RF: 0 losartan 25 MG tablet 50 mg PO DAILY RF: 0 ondansetron HCl 8 mg tablet 8 mg PO DAILY RF: 0 potassium chloride 20 mEq tablet,ER particles/crystals 20 meq PO DAILY Qty: 90 RF: 4 isosorbide mononitrate 60 mg tablet extended release 24 hr 60 mg PO DAILY Qty: 90 RF: 4 simvastatin 20 mg tablet 20 mg PO QHS Qty: 90 RF: 4 Changed metoprolol tartrate 25 mg tablet 50 mg PO BID Qty: 180 RF: 3 Referrals / Follow Up: Vernon Grubbs MD [Primary Care Provider] - Within 2 Weeks Disposition Disposition (needs filled in before D/C Order can be placed): Home, Self Care Charges/Coding Visit Charges OBSV E&M: 17722 Observ/hosp same date L3
--- NOTE | 2021-03-14 16:24 | NURSING ---
Patient discharge instructions given. Daughter at bedside. Patient verbalized understanding. Written and verbal instructions given. Escorted to front door via wheelchair by [employer]. Daughter at side.
== END 2021-03-14 15:34 | disposition home or self-care (01) ==
LOC: ED 03-14 00:30 → PCU 03-14 02:53
PROVIDERS: Admitting Provider Student in an Organized Health Care Education/Training Program; Emergency Provider Student in an Organized Health Care Education/Training Program; PCP Family Medicine; Visit Provider Internal Medicine
DX: R55 Syncope and collapse (principal); I25.10 Atherosclerotic heart disease of native coronary artery without angina pectoris; I50.32 Chronic diastolic (congestive) heart failure; I25.2 Old myocardial infarction; E66.9 Obesity, unspecified; Z68.32 Body mass index [BMI] 32.0-32.9, adult; D63.8 Anemia in other chronic diseases classified elsewhere; J45.909 Unspecified asthma, uncomplicated; E78.5 Hyperlipidemia, unspecified; I48.11 Longstanding persistent atrial fibrillation; E11.9 Type 2 diabetes mellitus without complications; Z79.899 Other long term (current) drug therapy; Z79.01 Long term (current) use of anticoagulants; Z79.82 Long term (current) use of aspirin; Z79.51 Long term (current) use of inhaled steroids; Z79.84 Long term (current) use of oral hypoglycemic drugs; I49.3 Ventricular premature depolarization; Z95.0 Presence of cardiac pacemaker; Z95.1 Presence of aortocoronary bypass graft; C79.31 Secondary malignant neoplasm of brain; C18.9 Malignant neoplasm of colon, unspecified; C78.7 Secondary malignant neoplasm of liver and intrahepatic bile duct; D50.9 Iron deficiency anemia, unspecified; I27.20 Pulmonary hypertension, unspecified; I47.9 Paroxysmal tachycardia, unspecified; E83.42 Hypomagnesemia
CPT/HCPCS: 36415; 71046; 80048; 83540; 83550; 83735; 84443; 84484; 85025; 93005; 93306; 94002; 96374; 97162; 97166; 99218; 99285; Q9957; A4216; C8929; G0378; J3490

== ENCOUNTER → 2021-06-14 16:01 | Outpatient (CLI) | payer MEDICARE, OTHER, SELFPAY ==
--- NOTE | 2021-06-14 16:35 | PET_ITS ---
EXAMINATION: FDG PET-CT INDICATIONS: A 80-year-old female with history of colorectal carcinoma presenting for restaging examination. COMPARISON EXAMINATION: CT of the chest report dated 06/09/21 INDEX LESION SIZE SUV INTERPRETATION Left-right lobe hepatic parenchyma 4.2 x 1.6-cm (largest) (frame 136) 7.4 (max) ratio > 2.0 Fulfills quantitative criteria for viable neoplasm TECHNIQUE: Following the intravenous administration of 15.42 mCi of F-18 deoxyglucose via the right antecubital fossa, multiplanar image acquisitions of the neck, chest, abdomen and pelvis to level of mid thigh, obtained at one hour post radiopharmaceutical administration contemporaneously interpreted with the current CT of the neck, chest, abdomen and pelvis, to level of mid thigh, dated 06/14/[address] of the chest report dated 06/09/21 reveals: BLOOD GLUCOSE LEVEL:?? 80 mg/dl?HEIGHT:?63 inches?WEIGHT: 220 lbs. FINDINGS: 1. There is an increase in FDG distribution defined in the left and right lobe of the hepatic (3.2) parenchyma to include segments IV, , VIII. The calculated maximal standard uptake value is 7.4, with a lesion to liver background ratio greater than 2.0. The maximal axial diameter of the largest, most conspicuous metabolic, morphologic abnormality on review of CT of the abdomen dated 06/14/21 is 4.2-cm (transverse) x 1.6-cm (AP). 2. A distinct nodular focus of increased FDG uptake is noted in the right lower-upper abdominal mesentery in the region of the hepatic flexure superimposed on segmental distribution of radiopharmaceutical noted throughout all four quadrants of the abdominal-pelvic mesentery and retroperitoneum. The calculated maximal standard uptake value is 3.7. The maximal axial diameter of the metabolic abnormality is 37.1-mm (AP). 3. Normal physiologic distribution of the radiopharmaceutical is apparent in the splenic parenchyma, both renal units, bladder and remaining visualized intestinal tract. Diffuse radiopharmaceutical concentration is noted in all four quadrants of the abdomen and pelvis. The visualized portion of the cerebral cortical-subcortical structures demonstrate symmetric and preserved glucose metabolism. Pertinent CT findings are as follows: CHEST: There is atherosclerotic calcification defined in the thoracic aorta without evidence of dilatation-aneurysm formation. Coronary arterial calcification is observed. Agata-cath placement is noted. Mediastinal soft tissue reveals no evidence of increased tracer uptake. There are no parenchymal densities-nodules defined in the right and left hemithorax with discernible quantitatively significant increased glucose metabolism. The calcified density noted in the right lower posterolateral lung-right lower lobe and non-calcified density defined in the left upper anteromedial lung-left upper lobe demonstrate no evidence of quantitatively significant increased FDG uptake. ABDOMEN AND PELVIS: There is evidence of postsurgical change in the right upper abdomen commensurate with previous hepatic metastasectomy. There is atherosclerotic calcification defined in the abdominal aorta without evidence of dilatation-aneurysm formation. Pelvic arterial calcification is observed. Bilateral inguinal soft tissue densities with fatty hilus are non-glucose avid. SKELETAL: Degenerative changes are noted in the cervical, thoracic and lumbar spine without evidence of increased radiopharmaceutical concentration. PET/PET/CT Tumor Base -Thigh Init IMPRESSION: 1. ABNORMAL EXAMINATION INDICATIVE OF MALIGNANT VIABLE NEOPLASM. 2. Increased FDG distribution defined in the left and right lobe hepatic parenchyma fulfill quantitative criteria for viable hepatic parenchymal neoplasm. (Krystyna et al, Archives of Surgery, 133:510 1998). 3. Enhanced tracer uptake observed in the right lower abdominal, upper pelvic mesentery at the level of the hepatic flexure is most consistent with physiologic tracer distribution. Review of CT of the abdomen and pelvis report dated 06/09/21 accomplished with both intravenous and oral contrast demonstrated no corresponding anatomic changes in the analogous location. 4. Anatomic stability may be ensured in the non-glucose avid left upper anteromedial lung-left upper lobe parenchymal density with repeat FDG PET-CT imaging and/or CT of the chest in 3-6 months if clinically indicated. (Katelyn, Seminars in Thoracic and Cardiovascular Surgery 14:292, 2002). Electronic Signature Watson Izaguirre D.O. Accurate Quantification of SUVs for this report are calculated using the exclusive [employer]. (U.S. Patent No. [id number] [id number] 983). Standardization and correction of the FDG SUV metric via [employer] technology allow for vendor non-specific objective quantitative examination comparison and optimization of the sensitivity and specificity of the FDG PET-CT examination. Electronically Signed: Watson Izaguirre DO at 23:31 EDT Tel , Service support ,
== END ==
PROVIDERS: PCP Family Medicine; Referring Provider Internal Medicine Hematology & Oncology; Visit Provider Internal Medicine Hematology & Oncology
DX: C18.2 Malignant neoplasm of ascending colon (principal); C78.7 Secondary malignant neoplasm of liver and intrahepatic bile duct
CPT/HCPCS: 78815; A9552

== ENCOUNTER 2021-08-18 12:01 | Inpatient (IN) | payer MEDICARE, OTHER, SELFPAY ==
[2021-08-18] VITALS (7 sets, daily range): BP systolic 108–137; BP diastolic 54–117; PULSE 69–91; RESP 18–24; TEMP 36.1–37.2; O2SAT 75–99; BMI 36.6; BMI 37.2
--- NOTE | 2021-08-18 12:25 | US_ITS ---
STUDY: ABDOMINAL ULTRASOUND - RIGHT UPPER QUADRANT REASON FOR VISIT: Female, 81 years old jaundice -- colon ca - known liver mets TECHNIQUE: Ultrasound evaluation of the right upper quadrant was performed with real-time and static pardo-scale imaging. TECHNICAL QUALITY: Adequate. COMPARISON: None. FINDINGS: Liver: The liver measures 18.4 cm. There is a heterogeneous echogenicity of the liver. The bile ducts are within normal limits. There is hepatic color flow. The direction of portal flow is hepatopetal. Multiple heterogeneous solid masses are seen throughout the liver. This is suggestive of a liver metastasis. The largest mass in the right lobe measures 3.2 cm x 3.1 cm x 2.7 cm. Gallbladder: The patient is status post cholecystectomy. Common Bile Duct (C.B.D.): The common bile duct measures 4.1 mm. Pancreas: Normal size of the head, body and tail of the pancreas. There is normal echogenicity of the pancreas. There is no demonstrated pancreatic mass or cyst. Right Kidney: Normal size of the right kidney. The right kidney measures 10.5 cm x 4.4 cm x 3.5 cm. Normal renal cortex. The right cortex measures 1.2 cm. There is no demonstrated renal mass or cyst. There is no right hydronephrosis. US/Abdomen Limited IMPRESSION: Mild hepatomegaly. Masses are seen throughout both lobes the largest on the right side measures 3.2 cm x 3.1 cm x 2.7 cm. Electronically Signed: Wang Holt MD at 14:18 EST , Service support ,
--- NOTE | 2021-08-18 12:25 | EKG12_ITS ---
Test Reason : ABNORMAL LABS Blood Pressure : / mmHG Vent. Rate : 082 BPM Atrial Rate : 258 BPM P-R Int : 000 ms QRS Dur : 078 ms QT Int : 358 ms P-R-T Axes : 000 -39 054 degrees QTc Int : 418 ms Atrial fibrillation with occasional ventricular-paced complexes Left axis deviation Abnormal ECG Confirmed by DEMAR CARVAJAL, SANDY ([id number]), state editor EBONY BONDS ([id number]) on 08/23/2021 9:31:43 AM Referred By: ISAIAH Confirmed By:SANDY BENZ MD
--- NOTE | 2021-08-18 12:27 | EX.ED.DYSGE1 ---
HPI History of Present Illness Chief Complaint: Abn Labs Informant: patient, family and other (Dr. Vasquez) Onset/Context/Timing Onset: Days Current Severity: Moderate Maximum Severity: Moderate Narrative Narrative: Patient presents better manage his office today secondary to jaundice and shortness of breath. She reportedly went to the office today for lab work for possible new oral chemotherapy agent. She was noted to be quite tachypneic and jaundiced in appearance. Daughter states that she is noted more of a yellow discoloration to her skin over the last 2 days. Patient reports having a dry cough for the last 6 weeks. She feels shortness of breath, especially with any exertion. She denies chest pain. She has noted upper abdominal pain over the last several weeks. [facility] Medical History Adenocarcinoma of colon Anemia of chronic disorder Atherosclerosis of coronary artery without angina pectoris Breast cancer Carotid artery stenosis Chronic diastolic (congestive) heart failure Colon cancer metastasized to liver Diabetes mellitus, type II Essential (primary) hypertension History of asthma Hyperlipidemia Hypomagnesemia Longstanding persistent atrial fibrillation Obesity (BMI 30-39.9) Old myocardial infarction Pleural effusion Pleural effusion on right Sick sinus syndrome Sinus pause (05/25/20) Symptomatic bradycardia Home Medications aspirin 81 mg PO DAILY 01/03/17 [History Last Taken 06/24/20] cholecalciferol (vitamin D3) 4,000 unit PO DAILY 01/03/17 [History Last Taken Unknown] epinephrine 0.3 mg/0.3 mL injection, auto-injector 0.3 ml SC PRN PRN 1 Days #2 ea 08/17/17 [History Last Taken Unknown] hydrocortisone 2.5 % topical cream 1 applic TOPICAL TID PRN PRN 10 Days #30 08/17/17 [History Last Taken Unknown] montelukast 10 mg tablet 10 mg PO QDAY PRN tab 08/17/17 [History Last Taken Unknown] omeprazole 40 mg PO DAILY 12/23/18 [History Last Taken 06/24/20] glimepiride 2 mg tablet 1 mg PO DAILY #90 tab 03/25/19 [History Last Taken Unknown] albuterol sulfate 2 puff INHALATION DAILY PRN 03/14/20 [History Last Taken Unknown] fluticasone furoate 100 mcg IH DAILY 07/19/20 [History Last Taken Unknown] furosemide 40 mg PO BID 03/14/20 [History Last Taken Unknown] loratadine 10 mg PO DAILY PRN 03/14/20 [History Last Taken Unknown] losartan 50 mg PO DAILY 03/14/20 [History Last Taken Unknown] acyclovir 400 mg tablet 400 mg PO BID tab 12/30/20 [History Last Taken Unknown] magnesium oxide 400 mg (241.3 mg magnesium) tablet 400 mg PO TID tab 12/30/20 [History Last Taken Unknown] nitroglycerin 0.4 mg sublingual tablet 0.4 mg SUBLINGUAL Q5M PRN #25 tab 12/30/20 [Rx Last Taken Unknown] ondansetron HCl 8 mg tablet 8 mg PO DAILY tab 12/30/20 [History Last Taken Unknown] rivaroxaban 15 mg tablet 15 mg PO DAILY #90 tab 12/30/20 [Rx Last Taken Unknown] ferrous sulfate 325 mg PO BID #1 tab 03/14/21 [Rx Last Taken Unknown] isosorbide mononitrate 60 mg tablet,extended release 24 hr 60 mg PO DAILY #90 tab 05/16/21 [Rx Last Taken Unknown] potassium chloride 20 mEq tablet,extended release(part/cryst) 20 meq PO DAILY #90 tab 05/16/21 [Rx Last Taken Unknown] simvastatin 20 mg tablet 20 mg PO QHS #90 tab 05/16/21 [Rx Last Taken Unknown] metoprolol tartrate 50 mg tablet 50 mg PO BID tab 07/19/21 [History Last Taken Unknown] Allergy/AdvReac Type Severity Reaction Status Date / Time hunt Allergy Shortness Verified 07/19/21 12:26 of breath nadolol [From Corgard] Allergy Hives Verified 07/19/21 12:26 Penicillins Allergy Hives Verified 07/19/21 12:26 pitavastatin [From Livalo] Allergy myalgia Verified 07/19/21 12:26 pravastatin sodium Allergy Hives Verified 07/19/21 12:26 [From Pravachol] sulfite Allergy Hives Verified 07/19/21 12:26 atorvastatin calcium AdvReac Pain in Verified 07/19/21 12:26 [From Lipitor] joints morphine AdvReac chest pain Verified 07/19/21 12:26 Family History Father CAD (coronary artery disease) Myocardial infarction, Onset Age: 45 Brother CAD (coronary artery disease) Myocardial infarction, Onset Age: 65 Mother , age 85 Atrial fibrillation CHF (congestive heart failure) Pacemaker Sister Atrial fibrillation, Onset Age: 55 Surgical History H/O coronary artery bypass surgery (02/13/12) History of appendectomy History of cholecystectomy History of colectomy History of coronary artery stent placement (12/04/13) History of hysterectomy History of left-sided carotid endarterectomy (02/07/13) History of lumpectomy of left breast History of permanent cardiac pacemaker placement (06/24/20) History of thoracentesis History of tonsillectomy and adenoidectomy Hx of resection of liver Social History Smoking Status: Never smoker alcohol intake: never substance use type: does not use caffeine: Yes Type: carbonated beverages what type of physical activity do you participate in: none seatbelt use: always do you feel safe at home: Yes ROS ROS ED Constitutional Constitutional ED: Reports fever(s) ENT ENT ED: Denies rhinorrhea or sore throat Cardiovascular Cardiovascular: Denies chest pain Respiratory/Chest Respiratory/Chest: Reports cough and dyspnea Gastrointestinal Gastrointestinal: Reports abdominal pain; Denies vomiting Genitourinary Genitourinary ED: Denies dysuria Integumentary Reports other Details: Jaundice Neurologic Neurologic: Reports weakness Allergic/Immunologic Allergic/Immunologic ED: Denies urticaria EXAM Physical Exam Const Vital Signs: 08/18/21 12:01 08/18/21 13:21 08/18/21 14:09 Temperature 96.9 F L Temperature Source Temporal Pulse Rate 78 89 Respiratory Rate 24 H 23 H Respiratory Effort Normal Non-Labored Respiratory Pattern Normal Blood Pressure 137/117 H 113/56 L Blood Pressure Mean 123 75 Pulse Ox 75 99 Oxygen Delivery Method Room Air Room Air Positive obese Nutritional Appearance: obese HEENT Reports moist mucous membranes Eyes General Eye ED: Yes scleral icterus Neck supple Chest Wall inspection of chest normal and palpation of chest normal Resp Resp Narrative: Tachypnea Auscultation: diminished lung sounds Cardio regular rate and regular rhythm GI Palpation: soft and tender RUQ Extremity General Extremety ED: Negative for tenderness Neuro oriented x3 Sensorium / Orientation: alert Skin General Skin Exam: jaundice MDM MDM MDM Narrative Medical decision making narrative: Lab work obtained, chest x-ray ordered, Covid swab ordered. Right upper quadrant ultrasound obtained. Lab Data Attestation: I reviewed the patient's lab results. Labs: Laboratory Results - last 24 hr 08/18/21 08/18/21 08/18/21 13:15 13:15 13:15 WBC 13.3 H RBC 3.04 L Hgb 10.1 L Hct 30.5 L MCV 100.3 H MCH 33.2 H MCHC 33.1 RDW Std Deviation 61.0 H RDW Coeff of [place] 17.1 H Plt Count 235 MPV 10.6 Immature Gran % (Auto) 0.900 Neut % (Auto) 77.4 H Lymph % (Auto) 4.7 L [place] % (Auto) 16.7 H Eos % (Auto) 0.1 Baso % (Auto) 0.2 Absolute Neuts (auto) 10.3 H Absolute Lymphs (auto) 0.63 L Nucleated RBC % 0 Differential Comment Diff Path Review May foll Platelet Estimate ADEQUATE RBC Morphology NORM C+C PT 23.3 H INR 2.2 APTT 62.3 H Sodium 134 L Potassium 4.6 Chloride 103 Carbon Dioxide 26.0 Anion Gap 5 BUN 23 H Creatinine 1.58 H Estim Creat Clear Calc 23.88 Est GFR (MDRD) Af Amer 41 L Est GFR (MDRD) Non-Af 34 L BUN/Creatinine Ratio 14.6 Glucose 53 L Lactic Acid Calcium 8.8 Total Bilirubin 7.70 H Direct Bilirubin 6.15 H AST 211 H ALT 83 H Alkaline Phosphatase 690 H Troponin I High Sens 9 B-Natriuretic Peptide Total Protein 6.7 Albumin 1.9 L Globulin 4.8 H Lipase 46 L 08/18/21 08/18/21 13:15 13:15 WBC RBC Hgb Hct MCV MCH MCHC RDW Std Deviation RDW Coeff of [place] Plt Count MPV Immature Gran % (Auto) Neut % (Auto) Lymph % (Auto) Mccone % (Auto) Eos % (Auto) Baso % (Auto) Absolute Neuts (auto) Absolute Lymphs (auto) Nucleated RBC % Differential Comment Diff Path Review Platelet Estimate RBC Morphology PT INR APTT Sodium Potassium Chloride Carbon Dioxide Anion Gap BUN Creatinine Estim Creat Clear Calc Est GFR (MDRD) Af Amer Est GFR (MDRD) Non-Af BUN/Creatinine Ratio Glucose Lactic Acid 1.3 Calcium Total Bilirubin Direct Bilirubin AST ALT Alkaline Phosphatase Troponin I High Sens B-Natriuretic Peptide 75.8 Total Protein Albumin Globulin Lipase Radiography Chest X-Ray - ED: 1 View, Read by ED Physician and Chronic Changes Diagnostic Testing: Clinical Impression(s) from Imaging Studies Abdomen Ultrasound 08/18/21 12:25 IMPRESSION: Mild hepatomegaly. Masses are seen throughout both lobes the largest on the right side measures 3.2 cm x 3.1 cm x 2.7 cm. Electronically Signed: Wang Holt MD at 14:18 EST , Service support , Chest X-Ray 08/18/21 13:07 IMPRESSION: Mild increased markings at the right lung base. Early infiltrate should be ruled out. Electronically Signed: Wang Holt MD at 13:35 EST , Service support , EKG Initial EKG: Attestation: I personally reviewed and interpreted this EKG as follows: Interpretation: Atrial Fibrillation (A. fib at 82 with no acute ischemia.) Treatment and Re-Evaluation Comments:: Lab work reviewed. Blood sugar is low at 58 and she is ordered an amp of D50. CBC reveals elevated white count at 13.3 with mild left shift. INR is 2.2. Chemistry studies reveal a BUN of 23 and a creatinine 1.58. Her previous creatinine on August 02 was 0.97. LFTs are significantly elevated with an AST of 211, ALT 83, alk phos of 690. Direct bili is 6.15 and total bili is 7.70. Lactic acid is normal at 1.3. Right upper quadrant ultrasound is obtained. There is mild hepatomegaly. Bile ducts are within normal limits. Multiple solid masses are noted throughout the liver. She has had prior cholecystectomy. Common bile duct is normal at 4.1 mm. Pancreas reveals no acute abnormalities. I reviewed these findings with Dr. Vasquez, her oncologist. He believes that this is the cancer in the liver causing her problems. With patient now having a white count and significant dyspnea on exertion which is new we will treat her with a dose of Levaquin and vancomycin as she has been in and out of the clinic. Patient's O2 sat was 75% in triage after walking into the hospital. I did recommend at least overnight observation on antibiotics and walking oxygen test to see if she needs home oxygen. She is anticoagulated with Xarelto. Her Covid test was negative. Discharge Plan Dx/Rx/DC Orders Clinical Impression: Jaundice, Pneumonia, Liver metastases Disposition Disposition: Acute Care Hospital [facility]
--- NOTE | 2021-08-18 13:07 | RAD_ITS ---
STUDY: X-RAY CHEST REASON FOR EXAM: Female, 81 years old. Sob TECHNIQUE: Single AP portable view of the chest. COMPARISON: Comparison is made with prior study dated 03/13/2021. FINDINGS: A right-sided portacatheter is seen with the tip at the junction of the superior vena cava and right atrium. Mild increased markings at the right lung base. Early infiltrate should be ruled out. There is no demonstrated pleural abnormality. Sternal cerclage wires and vascular clips are present from a prior sternotomy and coronary artery bypass graft procedure (CABG). Normal mediastinum and vivek. Normal visualized pulmonary arteries. There is atherosclerotic calcification of the aortic arch with tortuosity. There are diffuse degenerative changes of the visualized thoracic spine. Normal visualized ribs, clavicles, and shoulders. There is no demonstrated abnormality of the visualized soft tissue structures of the upper abdomen. RAD/Chest 1 View (Portable) IMPRESSION: Mild increased markings at the right lung base. Early infiltrate should be ruled out. Electronically Signed: Wang Holt MD at 13:35 EST , Service support ,
[2021-08-18 13:24] LABS: Absolute Lymphocyte Count 0.63 X10^3/uL (0.83-4.51); Absolute Neutrophil Count 10.3 X10^3/uL (2.0-7.7); Basophil# 0.02 X10^3/uL; Basophil% 0.2 % (0-1); Eosinophil# 0.01 X10^3/uL; Eosinophils% 0.1 % (0-5); Hematocrit 30.5 % (37-47); Hemoglobin 10.1 g/dL (12.0-15.0); Lymphocyte # 0.63 X10^3/ul (0.83-4.51); Lymphocyte % 4.7 % (19-41); Mean Corp Hgb Conc 33.1 g/dL (32-36); Mean Corpuscular Hgb 33.2 pg (27.0-32.0); Mean Corpuscular Volume 100.3 fL (81-99); Mean Platelet Vol. 10.6 fl (6.2-12.0); Monocyte# 2.22 X10^3/uL; Monocyte% 16.7 % (0-10); NRBC Flagged by Analyzer 0 % (0-5); Neutrophil # 10.27 X10^3/uL (2.7-7.7); Neutrophil % 77.4 % (47-70); POSITIVE DIFFERENTIAL YES; Platelet Count 235 K/mm3 (150-450); RBC Distribution Width CV 17.1 % (11.6-14.6); Red Blood Count 3.04 M/mm3 (4.2-5.4); White Blood Count 13.3 K/mm3 (4.4-11.0)
[2021-08-18 13:33] LABS: International Normalized Ratio 2.2; Prothrombin Time (Protime)PT. 23.3 SECONDS (11.7-14.9)
[2021-08-18 13:34] LABS: Differential Indicated SCAN CRITERIA MET
[2021-08-18 13:35] LABS: Partial Thromboplast Time 62.3 Seconds (24.1-36.2)
[2021-08-18 13:43] LABS: AST(SGOT) 211 U/L (15-37); Alanine Aminotransfer ALT/SGPT 83 U/L (13-56); Albumin, Serum 1.9 g/dL (3.2-5.0); Alkaline Phosphatase 690 U/L (45-117); Anion Gap 5 (5-15); BUN 23 mg/dL (7-18); BUN/Creat Ratio 14.6 RATIO (10-20); Bilirubin, Direct 6.15 mg/dL (0.00-0.30); Calcium,Total 8.8 mg/dL (8.5-10.1); Chloride 103 mmol/L (98-107); Creatinine, Serum 1.58 mg/dL (0.55-1.02); EST Glomerular Filtration Rate 34 mL/min (>60); Est Glom Filt Rate - Afr Amer 41 mL/min (>60); Estimated Creatinine Clearance 23.88 ml/min; Globulin 4.8 g/dL (2.2-4.2); Glucose 53 mg/dL (74-106); Lipase 46 U/L (73-393); Potassium 4.6 mmol/L (3.5-5.1); Protein, Total 6.7 g/dL (6.4-8.2); Sodium Level 134 mmol/L (136-145); Troponin-I HS 9 pg/mL (3.0-54.0)
[2021-08-18 13:44] LABS: BNP,B-Type NATRIURETIC PEPTIDE 75.8 pg/mL (0-100)
[2021-08-18 13:46] LABS: Lactic Acid 1.3 mmol/L (0.4-1.9)
[2021-08-18 14:03] LABS: Platelet Estimate ADEQUATE (ADEQ); Red Cell Morphology NORM C+C NORMAL (NORM C&C)
[2021-08-18] MEDS: Dextrose 50%-Water 25 GM/50 ML DISP.SYRIN IV ×2 (14:03→21:33)
[2021-08-18] MEDS: levoFLOXacin IV 750 MG/150 ML BAG 100 MG IV (14:48)
--- NOTE | 2021-08-18 16:09 | HP.PCM.HOS_ITS ---
HPI - General General Date of Admission: 08/18/21 HPI Narrative DIANA COKER, is a 81 F who presents for worsening shortness of breath and nausea and vomiting. The patient does have issues tolerating food and has chronic abdominal pain due to known colon cancer that is metastatic. The patient has noticed becoming more yellow just recently and does follow with her oncology physician, with last chemotherapy in May as the patient did not improve on it. Per patient oncologist is considering another oral medication as last resort for palliative therapy for metastatic colon cancer. Patient does have A. fib and is on Xarelto. Does not have any significant bowel movements given her lack of p.o. intake. She was brought in by her daughter and oxygen saturation noted to be 75% triage, and on lab work she was noted to have a white count of 13.3 and bilirubin rise to 7.7 from baseline of <1. [facility] Medical History Adenocarcinoma of colon Anemia of chronic disorder Atherosclerosis of coronary artery without angina pectoris Breast cancer Carotid artery stenosis Chronic diastolic (congestive) heart failure Colon cancer metastasized to liver Diabetes mellitus, type II Essential (primary) hypertension History of asthma Hyperlipidemia Hypomagnesemia Longstanding persistent atrial fibrillation Obesity (BMI 30-39.9) Old myocardial infarction Pleural effusion Pleural effusion on right Sick sinus syndrome Sinus pause (05/25/20) Symptomatic bradycardia Home Medications aspirin 81 mg PO DAILY 01/03/17 [History Last Taken 08/18/21] cholecalciferol (vitamin D3) 4,000 unit PO DAILY 01/03/17 [History Last Taken 08/18/21] epinephrine 0.3 mg/0.3 mL injection, auto-injector 0.3 ml SC PRN PRN 1 Days #2 ea 08/17/17 [History Last Taken Unknown] hydrocortisone 2.5 % topical cream 1 applic TOPICAL TID PRN PRN 10 Days #30 [History Last Taken Unknown] montelukast 10 mg tablet 10 mg PO QHS tab 08/17/17 [History Last Taken 08/17/21] albuterol sulfate 2 puff INHALATION DAILY PRN 03/14/20 [History Last Taken 08/17/21] fluticasone furoate [Arnuity Ellipta] 100 mcg IH DAILY 03/14/20 [History Last Taken 08/18/21] furosemide 40 mg PO BID 03/14/20 [History Last Taken 08/18/21] loratadine 10 mg PO DAILY PRN 03/14/20 [History Last Taken Unknown] acyclovir 400 mg tablet 400 mg PO BID tab 12/30/20 [History Last Taken 08/18/21] magnesium oxide 400 mg (241.3 mg magnesium) tablet 400 mg PO TID tab 12/30/20 [History Last Taken 08/18/21] nitroglycerin 0.4 mg sublingual tablet 0.4 mg SUBLINGUAL Q5M PRN #25 tab 12/30/20 [Rx Last Taken Unknown] ondansetron HCl 8 mg tablet 8 mg PO DAILY tab 12/30/20 [History Last Taken 08/18/21] rivaroxaban 15 mg tablet 15 mg PO DAILY #90 tab 12/30/20 [Rx Last Taken 08/17/21] isosorbide mononitrate 60 mg tablet,extended release 24 hr 60 mg PO DAILY #90 tab 05/16/21 [Rx Last Taken 08/18/21] potassium chloride 20 mEq tablet,extended release(part/cryst) 20 meq PO DAILY #90 tab 05/16/21 [Rx Last Taken 08/18/21] simvastatin 20 mg tablet 20 mg PO QHS #90 tab 05/16/21 [Rx Last Taken 08/17/21] metoprolol tartrate 50 mg tablet 50 mg PO BID tab 07/19/21 [History Last Taken 08/18/21] glimepiride 1 mg PO DAILY 08/18/21 [History Last Taken 08/18/21] losartan 50 mg PO DAILY 08/18/21 [History Last Taken 08/18/21] omeprazole 40 mg PO DAILY 08/18/21 [History Last Taken 08/18/21] Allergy/AdvReac Type Severity Reaction Status Date / Time hunt Allergy Shortness Verified 07/19/21 12:26 of breath nadolol [From Corgard] Allergy Hives Verified 07/19/21 12:26 Penicillins Allergy Hives Verified 07/19/21 12:26 pitavastatin [From Livalo] Allergy myalgia Verified 07/19/21 12:26 pravastatin sodium Allergy Hives Verified 07/19/21 12:26 [From Pravachol] sulfite Allergy Hives Verified 07/19/21 12:26 atorvastatin calcium AdvReac Pain in Verified 07/19/21 12:26 [From Lipitor] joints morphine AdvReac chest pain Verified 07/19/21 12:26 Family History Father CAD (coronary artery disease) Myocardial infarction, Onset Age: 45 Brother CAD (coronary artery disease) Myocardial infarction, Onset Age: 65 Mother , age 85 Atrial fibrillation CHF (congestive heart failure) Pacemaker Sister Atrial fibrillation, Onset Age: 55 Surgical History H/O coronary artery bypass surgery (02/13/12) History of appendectomy History of cholecystectomy History of colectomy History of coronary artery stent placement (12/04/13) History of hysterectomy History of left-sided carotid endarterectomy (02/07/13) History of lumpectomy of left breast History of permanent cardiac pacemaker placement (06/24/20) History of thoracentesis History of tonsillectomy and adenoidectomy Hx of resection of liver Social History Smoking Status: Never smoker alcohol intake: never substance use type: does not use caffeine: Yes Type: carbonated beverages what type of physical activity do you participate in: none seatbelt use: always do you feel safe at home: Yes Vital Signs Vital Signs Vital Signs: 08/18/21 12:01 08/18/21 13:21 08/18/21 14:09 Temperature 96.9 F L Temperature Source Temporal Pulse Rate 78 89 Respiratory Rate 24 H 23 H Respiratory Effort Normal Non-Labored Respiratory Pattern Normal Blood Pressure 137/117 H 113/56 L Blood Pressure Mean 123 75 Pulse Ox 75 99 Oxygen Delivery Method Room Air Room Air 08/18/21 15:29 Temperature 98.6 F Temperature Source Temporal Pulse Rate 88 Respiratory Rate 18 Respiratory Effort Respiratory Pattern Blood Pressure 113/56 L Blood Pressure Mean 75 Pulse Ox 98 Oxygen Delivery Method Room Air Weight Weight: 210 lb Body Mass Index (BMI) 36.6 Results Lab / Micro Data Result Diagrams: 08/18/21 13:15 08/18/21 13:15 Labs: Laboratory Results - last 24 hr 08/18/21 13:15: WBC 13.3 H, RBC 3.04 L, Hgb 10.1 L, Hct 30.5 L, MCV 100.3 H, MCH 33.2 H, MCHC 33.1, RDW Std Deviation 61.0 H, RDW Coeff of [place] 17.1 H, Plt Count 235, MPV 10.6, Immature Gran % (Auto) 0.900, Neut % (Auto) 77.4 H, Lymph % (Auto) 4.7 L, [place] % (Auto) 16.7 H, Eos % (Auto) 0.1, Baso % (Auto) 0.2, Absolute Neuts (auto) 10.3 H, Absolute Lymphs (auto) 0.63 L, Nucleated RBC % 0, Differential Comment , Diff Path Review December, Platelet Estimate ADEQUATE, RBC Morphology NORM C+C 08/18/21 13:15: PT 23.3 H, INR 2.2, APTT 62.3 H 08/18/21 13:15: Sodium 134 L, Potassium 4.6, Chloride 103, Carbon Dioxide 26.0, Anion Gap 5, BUN 23 H, Creatinine 1.58 H, Estim Creat Clear Calc 23.88, Est GFR (MDRD) Af Amer 41 L, Est GFR (MDRD) Non-Af 34 L, BUN/Creatinine Ratio 14.6, Glucose 53 L, Calcium 8.8, Total Bilirubin 7.70 H, Direct Bilirubin 6.15 H, AST 211 H, ALT 83 H, Alkaline Phosphatase 690 H, Troponin I High Sens 9, Total Protein 6.7, Albumin 1.9 L, Globulin 4.8 H, Lipase 46 L 08/18/21 13:15: Lactic Acid 1.3 08/18/21 13:15: B-Natriuretic Peptide 75.8 Micro: Microbiology 08/18/21 13:05 Nasal Secretion SARS-CoV-2 Antigen (Rapid) - Final Radiology Impression Abdomen Ultrasound 08/18/21 12:25 IMPRESSION: Mild hepatomegaly. Masses are seen throughout both lobes the largest on the right side measures 3.2 cm x 3.1 cm x 2.7 cm. Electronically Signed: Wang Holt MD at 14:18 EST , Service support , Chest X-Ray 08/18/21 13:07 IMPRESSION: Mild increased markings at the right lung base. Early infiltrate should be ruled out. Electronically Signed: Wang Holt MD at 13:35 EST , Service support , Assessment & Plan Assessment/Plan (1) Pneumonia: (2) Longstanding persistent atrial fibrillation: (3) Chronic diastolic (congestive) heart failure: (4) Liver metastases: (5) Colon cancer metastasized to liver: (6) Acute respiratory failure with hypoxia: PLAN: Acute hypoxic respiratory failure (mild) Community acquired pneumonia -nontoxic appearing, afebrile. -Patient improve dramatically on 2-4 l nasal cannula and saturating greater than 92% -Will continue oxygen therapy and scheduled DuoNebs -For small infiltrate we will continue patient on ceftriaxone and azithromycin -COVID negative (rapid). -Check urine strep and Legionella and UA -Incentive spirometry -Albuterol prn -Did receive vancomycin in ER however, lower concern for MRSA and not currently on immunotherapy -Set up oxygen evaluation and home O2 if indicated. -no hypoxia now, comfortable > 96% on RA Chronic diastolic heart failure -Avoid fluids and continue Lasix, which is home medication -Continue Xarelto Colon cancer with metastatic disease to liver Elevated liver enzymes Nausea, Vomiting -Hyperbilirubinemia due to metastatic process in the liver -No acute biliary obstruction and no intervention at this time -Further palliative chemo per oncology, however prognosis is poor and patient recognizes this -Continue diet as tolerated with Zofran PRN -Tylenol for pain control, opiates would be discouraged at this point Diet: Full liquids, ADAT Code status: DNR, DNI Continue Zelalemrelto Kolton Ramirez MD Charges/Coding Visit Charges Inpatient E&M: 28106 Init Hosp L2
[2021-08-18] MEDS: Furosemide 40 MG Tablet PO (18:23)
[2021-08-18] MEDS: Acetaminophen 325 MG Tablet PO (18:25)
--- NOTE | 2021-08-18 19:23 | PCS.PANDOC ---
PANDEMIC DOCUMENTATION INITIATED: Date: 04/11/2021 Time: 190
[2021-08-18 19:58] LABS: Bacteria 0 SEEN /hpf (None Seen); Color, Urine Yellow (Yellow); Glucose, Dipstick Normal (Normal); Ketone-Dipstick Negative (Negative); Leukocyte Esterase-Dipstick 100 /ul (Negative); Mucous, Urine 0 SEEN /hpf (<or=2+); Nitrite-Dipstick Negative (Negative); Occult Blood-Urine Negative /ul (Negative); Protein-Dipstick 30 mg/dl (Negative); Red Blood Cells-Urine 0 SEEN /hpf (0-5); Specific Gravity, Urine 1.005 (1.002-1.030); Urine Clarity Sl. Cloudy (Clear); Urine Urobilinogen 8 mg/dl (Normal)
[2021-08-18 19:59] LABS: Urine Bilirubin Dipstick 3 mg/dL (Negative)
[2021-08-18 20:05] LABS: Squamous Epithelial Cells - UA 0-5 SEEN /hpf (5-10); White Blood Cells 5-10 SEEN /hpf (0-5)
[2021-08-18 20:06] LABS: Amorphous Sediment 1+ PHOS
[2021-08-18] MEDS: Simvastatin 20 MG Tablet PO (21:15)
[2021-08-18] MEDS: Ondansetron 4 MG/2 ML Vial IV (21:15)
[2021-08-18] MEDS: Montelukast 10 MG Tablet PO (21:15)
--- NOTE | 2021-08-18 21:30 | NURSING ---
pts BG was 31. pt A&O x3. snack given. 2 cokes and peanut butter crackers. 50ml/25g of dextrose IV given as well as pt was starting to have symptoms of hypoglycemia and feeling dizzy. pts BG checked again and is now 172. pt states symptoms are improving. will update hospitalist.
[2021-08-18 21:41] LABS: Bedside Glucose 31 mg/dL (70-110)
[2021-08-18 21:41] LABS: Bedside Glucose 172 mg/dL (70-110)
[2021-08-19] VITALS (8 sets, daily range): BP systolic 94–128; BP diastolic 57–68; PULSE 69–88; RESP 16–18; TEMP 36.6–36.8; O2SAT 98–99
[2021-08-19 00:36] LABS: Bedside Glucose 58 mg/dL (70-110)
[2021-08-19] MEDS: Dextrose 10%-Water 250 ML 40 ML IV ×2 (01:10→06:13)
[2021-08-19] MEDS: proCHLORPERazine 10 MG/2 ML Vial 5 MG IV ×2 (01:10→20:37)
[2021-08-19 02:16] LABS: Bedside Glucose 56 mg/dL (70-110)
[2021-08-19] MEDS: Dextrose 50%-Water 25 GM/50 ML DISP.SYRIN IV (02:16)
[2021-08-19 05:11] LABS: Bedside Glucose 107 mg/dL (70-110)
[2021-08-19 06:21] LABS: Bedside Glucose 70 mg/dL (70-110)
[2021-08-19] MEDS: Acetaminophen 325 MG Tablet PO (06:22)
[2021-08-19] MEDS: Ondansetron 4 MG/2 ML Vial IV ×2 (06:23→18:10)
[2021-08-19 06:24] LABS: Absolute Lymphocyte Count 0.73 X10^3/uL (0.83-4.51); Absolute Neutrophil Count 7.7 X10^3/uL (2.0-7.7); Basophil# 0.02 X10^3/uL; Basophil% 0.2 % (0-1); Eosinophil# 0.03 X10^3/uL; Eosinophils% 0.3 % (0-5); Hematocrit 28.7 % (37-47); Hemoglobin 9.5 g/dL (12.0-15.0); Lymphocyte # 0.73 X10^3/ul (0.83-4.51); Lymphocyte % 6.7 % (19-41); Mean Corp Hgb Conc 33.1 g/dL (32-36); Mean Corpuscular Hgb 33.1 pg (27.0-32.0); Monocyte# 2.25 X10^3/uL; Monocyte% 20.7 % (0-10); NRBC Flagged by Analyzer 0 % (0-5); Neutrophil # 7.68 X10^3/uL (2.7-7.7); Neutrophil % 70.8 % (47-70); POSITIVE DIFFERENTIAL YES; Platelet Count 225 K/mm3 (150-450); RBC Distribution Width CV 17.2 % (11.6-14.6); RBC Distribution Width SD 60.6 fl (35.1-43.9); Red Blood Count 2.87 M/mm3 (4.2-5.4); White Blood Count 10.9 K/mm3 (4.4-11.0)
[2021-08-19 06:26] LABS: Differential Indicated SCAN CRITERIA MET
[2021-08-19 06:47] LABS: Anisocytosis 1+; Differential Comment SCANNED; Macrocytosis 1+
[2021-08-19 06:54] LABS: ALB/GLOB Ratio 0.4 RATIO (0.9-2.4); AST(SGOT) 181 U/L (15-37); Alanine Aminotransfer ALT/SGPT 75 U/L (13-56); Albumin, Serum 1.7 g/dL (3.2-5.0); Alkaline Phosphatase 631 U/L (45-117); Anion Gap 6 (5-15); BUN 22 mg/dL (7-18); BUN/Creat Ratio 12.8 RATIO (10-20); Calcium,Total 8.5 mg/dL (8.5-10.1); Chloride 103 mmol/L (98-107); Creatinine, Serum 1.72 mg/dL (0.55-1.02); EST Glomerular Filtration Rate 30 mL/min (>60); Est Glom Filt Rate - Afr Amer 37 mL/min (>60); Estimated Creatinine Clearance 21.94 ml/min; Globulin 4.4 g/dL (2.2-4.2); Glucose 77 mg/dL (74-106); Potassium 4.2 mmol/L (3.5-5.1); Protein, Total 6.1 g/dL (6.4-8.2); Sodium Level 134 mmol/L (136-145)
[2021-08-19] MEDS: Potassium Chloride Oral Tablet 20 MEQ PO (08:31)
[2021-08-19] MEDS: Aspirin 81 MG TAB.CHEW PO (08:31)
[2021-08-19] MEDS: Losartan Potassium 50 MG Tablet PO (10:32)
[2021-08-19] MEDS: Isosorbide Mononitrate 60 MG Tablet PO (10:32)
[2021-08-19] MEDS: Furosemide 40 MG Tablet PO ×2 (10:33→16:29)
[2021-08-19] MEDS: Pantoprazole Sodium 40 MG Tablet PO (10:33)
[2021-08-19] MEDS: Azithromycin 250 MG Tablet 500 MG PO (10:33)
[2021-08-19] MEDS: Metoprolol Tartrate 50 MG Tablet PO ×2 (10:33→21:39)
[2021-08-19] MEDS: Rivaroxaban 15 MG Tablet PO (10:33)
--- NOTE | 2021-08-19 11:00 | PN.HOSP_ITS ---
Subjective Subjective Patient seen and examined. She did complain of some nausea but no vomiting. Her shortness of breath is improved. She still does have her chronic abdominal pain. She was noted to be hypoglycemic with blood sugars going down to the 30s yesterday. She was started on D10 infusion and blood sugar this morning was 70. Patient still on Amaryl. Objective Data Objective Data Vital Signs: Vital Signs Temp Pulse Resp BP Pulse Ox 98.2 F 88 18 116/68 99 08/19/21 08:11 08/19/21 10:33 08/19/21 08:22 08/19/21 08:11 08/19/21 08:11 Oxygen Delivery Method Room Air Weight: 209 lb 15.492 oz Body Mass Index (BMI) 37.2 Intake & Output: Intake and Output for Last 24 Hours 08/17/21 08/18/21 08/19/21 23:59 23:59 23:59 Intake Total 1130 / 1130 680 / 680 Output Total 500 / 500 600 / 600 Balance 630 / 630 80 / 80 Lab / Micro Data Result Diagrams: 08/19/21 05:20 08/19/21 05:20 Labs: Laboratory Results - last 24 hr 08/18/21 13:15: WBC 13.3 H, RBC 3.04 L, Hgb 10.1 L, Hct 30.5 L, MCV 100.3 H, MCH 33.2 H, MCHC 33.1, RDW Std Deviation 61.0 H, RDW Coeff of [place] 17.1 H, Plt Count 235, MPV 10.6, Immature Gran % (Auto) 0.900, Neut % (Auto) 77.4 H, Lymph % (Auto) 4.7 L, [place] % (Auto) 16.7 H, Eos % (Auto) 0.1, Baso % (Auto) 0.2, Absolute Neuts (auto) 10.3 H, Absolute Lymphs (auto) 0.63 L, Nucleated RBC % 0, Differential Comment , Diff Path Review December, Platelet Estimate ADEQUATE, RBC Morphology NORM C+C 08/18/21 13:15: PT 23.3 H, INR 2.2, APTT 62.3 H 08/18/21 13:15: Sodium 134 L, Potassium 4.6, Chloride 103, Carbon Dioxide 26.0, Anion Gap 5, BUN 23 H, Creatinine 1.58 H, Estim Creat Clear Calc 23.88, Est GFR (MDRD) Af Amer 41 L, Est GFR (MDRD) Non-Af 34 L, BUN/Creatinine Ratio 14.6, Glucose 53 L, Calcium 8.8, Total Bilirubin 7.70 H, Direct Bilirubin 6.15 H, AST 211 H, ALT 83 H, Alkaline Phosphatase 690 H, Troponin I High Sens 9, Total Protein 6.7, Albumin 1.9 L, Globulin 4.8 H, Lipase 46 L 08/18/21 13:15: Lactic Acid 1.3 08/18/21 13:15: B-Natriuretic Peptide 75.8 08/18/21 18:35: Urine Color Yellow, Urine Clarity Sl. Cloudy, Urine pH 7.0, Ur Specific [place] 1.005, Urine Protein 30 H, Urine Glucose (UA) Normal, Urine Ketones Negative, Urine Occult Blood Negative, Urine Nitrite Negative, Urine Bilirubin 3 H, Urine Urobilinogen 8 H, Ur Leukocyte Esterase 100 H, Urine RBC 0 SEEN, Urine WBC 5-10 SEEN, Ur Squamous Epith Cells 0-5 SEEN, Amorphous Sediment 1+ PHOS, Urine Bacteria 0 SEEN, Urine Mucus 0 SEEN 08/18/21 21:07: POC Glucose 31 L* 08/18/21 21:30: POC Glucose 172 H 08/19/21 00:19: POC Glucose 58 L 08/19/21 02:10: POC Glucose 56 L 08/19/21 03:44: POC Glucose 107 08/19/21 05:20: WBC 10.9, RBC 2.87 L, Hgb 9.5 L, Hct 28.7 L, MCV 100.0 H, MCH 33.1 H, MCHC 33.1, RDW Std Deviation 60.6 H, RDW Coeff of [place] 17.2 H, Plt Count 225, MPV 11.0, Immature Gran % (Auto) 1.300 H, Neut % (Auto) 70.8 H, Lymph % (Auto) 6.7 L, [place] % (Auto) 20.7 H, Eos % (Auto) 0.3, Baso % (Auto) 0.2, Absolute Neuts (auto) 7.7, Absolute Lymphs (auto) 0.73 L, Nucleated RBC % 0, Differential Comment SCANNED, Anisocytosis 1+, Macrocytosis 1+ 08/19/21 05:20: Sodium 134 L, Potassium 4.2, Chloride 103, Carbon Dioxide 25.0, Anion Gap 6, BUN 22 H, Creatinine 1.72 H, Estim Creat Clear Calc 21.94, Est GFR (MDRD) Af Amer 37 L, Est GFR (MDRD) Non-Af 30 L, BUN/Creatinine Ratio 12.8, Glucose 77, Calcium 8.5, Magnesium 2.0, Total Bilirubin 5.90 H, AST 181 H, ALT 75 H, Alkaline Phosphatase 631 H, Total Protein 6.1 L, Albumin 1.7 L, Globulin 4.4 H, Albumin/Globulin Ratio 0.4 L 08/19/21 06:12: POC Glucose 70 Micro: Microbiology 08/18/21 13:05 Nasal Secretion SARS-CoV-2 Antigen (Rapid) - Final Radiography Diagnostic Testing: Radiology Impression Abdomen Ultrasound 08/18/21 12:25 IMPRESSION: Mild hepatomegaly. Masses are seen throughout both lobes the largest on the right side measures 3.2 cm x 3.1 cm x 2.7 cm. Electronically Signed: Wang Holt MD at 14:18 EST , Service support , Chest X-Ray 08/18/21 13:07 IMPRESSION: Mild increased markings at the right lung base. Early infiltrate should be ruled out. Electronically Signed: Wang Holt MD at 13:35 EST , Service support , Physical Exam Const alert, oriented x3 and no apparent distress Exam Limitations: no limitations HEENT head/scalp atraumatic and moist oral mucous membranes HEENT Narrative: has a tinge of jaundice to conjuctiva Head and Scalp: normocephalic Mouth: dry mucous membranes Neck no lymphadenopathy Resp normal respiratory effort, no retractions, no use of accessory muscles and clear to auscultation bilaterally Cardio regular rate, regular rhythm, S1 normal heart sound, S2 normal heart sound and no murmurs GI normal to inspection, nondistended, normoactive bowel sounds, soft to palpation, non-tender and non-distended Extremity normal to inspection, full ROM and no clubbing, cyanosis or edema Peripheral Pulses: Yes pulses 2+ throughout Skin no rashes or lesions noted Neuro oriented x3 and CN's II-XII intact bilaterally Sensorium / Orientation: awake and alert Psych affect normal Assessment & Plan Assessment/Plan (1) Acute respiratory failure with hypoxia: (2) Jaundice: (3) Pneumonia: (4) Liver metastases: PLAN: #Community acquired pneumonia * Chest x-ray on admission showed mild increased markings at the right lung base with possible early infiltrate * Titrate oxygen to maintain saturation above 90%. Breathing treatments of bronchodilators. * On IV ceftriaxone and azithromycin. * Urine for strep and Legionella were negative. * Incentive spirometry. Now on room air * #Transaminitis with hyperbilirubinemia * This is due to colon cancer with hepatic metastasis. Abdominal ultrasound done showed multiple masses in the liver. * Follow-up with oncologist on outpatient basis. * Having palliative chemotherapy per oncology * #Hypoglycemia * Likely medication induced. Patient is on Amaryl for diabetes mellitus. However his metabolism will be slowed down in light of deranged liver function from hepatic metastasis of colon cancer. * We will therefore discontinue Amaryl. Patient currently on D10 infusion. Will increase to 60 mils per minute. * #Type 2 diabetes mellitus: * Glimepiride discontinued in light of hyperglycemia. Insulin sliding scale. Objective seizures. * #Atrial fibrillation: On Xarelto #Benign essential hypertension: On metoprolol and losartan #Hyperlipidemia: On statin #History of CAD s/p stent and CABG: On aspirin and statin as well as Imdur and metoprolol #Heart failure: not in exacerbation: on lasix 40mg bid. DVT prophylaxis:not indicated as patient is on xarelto. Charges/Coding Visit Charges Inpatient E&M: 00203 [facility] Hosp L3
--- NOTE | 2021-08-19 11:05 | CASEMGMT ---
RN CM Face to Face with patient for initial transition planning/care coordination assessment. RN CM introduced self and role at [facility]. Patient sitting in chair, alert and oriented. Patient willing to participate in assessment and is able to answer all questions appropriately. Care providers, pharmacy, and demographics verified. Patient wishes to discharge home, denies need for home health at this time, list for HHC and Private aides provided if changes mind about HHC. Patient states she has no further needs or concerns at this time. CM to follow for discharge planning needs that may arise. PCP: Willy Specialists: earl, oncologist; Niles, supply analyst; Roberta, legal cashier Preferred Pharmacy: [facility] retail or [facility] Insurance: [employer] Prescription Benefit: yes Living Will/HPOA: yes daughter Juliette YUAN: son, daughter Living Arrangements: Patient lives alone in a 1.5 story home with bed and bath on first floor. Patient states she is independent at home. Transportation: son or daughter DME/HHC: Patient states she has raised toilet, cane, walker, grab bars, wheelchair, and bipap at home. Patient denies previous HHC or SNF. Disposition Plan: Patient to discharge home with family support and follow-up plans in place. Ofelia TORRES, RN, CM
[2021-08-19] MEDS: Dextrose 10%-Water 250 ML 60 ML IV ×3 (12:15→21:18)
[2021-08-19 12:26] LABS: Bedside Glucose 106 mg/dL (70-110)
[2021-08-19 12:26] LABS: Bedside Glucose 48 mg/dL (70-110)
[2021-08-19 12:26] LABS: Bedside Glucose 55 mg/dL (70-110)
[2021-08-19 16:40] LABS: Bedside Glucose 101 mg/dL (70-110)
[2021-08-19] MEDS: 0.9% Saline Lock 10 ML Syringe IV ×2 (18:10→20:37)
[2021-08-19] MEDS: Simvastatin 20 MG Tablet PO (21:38)
[2021-08-19] MEDS: Montelukast 10 MG Tablet PO (21:39)
[2021-08-19 21:45] LABS: Bedside Glucose 133 mg/dL (70-110)
[2021-08-20] VITALS (8 sets, daily range): BP systolic 108–115; BP diastolic 48–63; PULSE 64–90; RESP 16–20; TEMP 36.4–36.9; O2SAT 95–100
[2021-08-20] MEDS: Dextrose 10%-Water 250 ML 60 ML IV ×2 (01:19→05:28)
[2021-08-20] MEDS: 0.9% Saline Lock 10 ML Syringe IV ×6 (02:22→21:45)
[2021-08-20] MEDS: Ondansetron 4 MG/2 ML Vial IV ×2 (02:22→09:25)
[2021-08-20 05:24] LABS: Absolute Lymphocyte Count 0.67 X10^3/uL (0.83-4.51); Absolute Neutrophil Count 6.3 X10^3/uL (2.0-7.7); Basophil# 0.03 X10^3/uL; Basophil% 0.3 % (0-1); Eosinophil# 0.03 X10^3/uL; Eosinophils% 0.3 % (0-5); Hematocrit 28.6 % (37-47); Hemoglobin 9.5 g/dL (12.0-15.0); Lymphocyte # 0.67 X10^3/ul (0.83-4.51); Lymphocyte % 7.3 % (19-41); Mean Corp Hgb Conc 33.2 g/dL (32-36); Mean Corpuscular Volume 99.3 fL (81-99); Mean Platelet Vol. 10.9 fl (6.2-12.0); Monocyte# 1.99 X10^3/uL; Monocyte% 21.6 % (0-10); NRBC Flagged by Analyzer 0 % (0-5); Neutrophil # 6.28 X10^3/uL (2.7-7.7); Neutrophil % 68.2 % (47-70); POSITIVE DIFFERENTIAL YES; Platelet Count 234 K/mm3 (150-450); RBC Distribution Width CV 17.7 % (11.6-14.6); RBC Distribution Width SD 64.7 fl (35.1-43.9); Red Blood Count 2.88 M/mm3 (4.2-5.4); White Blood Count 9.2 K/mm3 (4.4-11.0)
[2021-08-20 05:30] LABS: Differential Indicated SCAN CRITERIA MET
[2021-08-20 05:53] LABS: ALB/GLOB Ratio 0.4 RATIO (0.9-2.4); AST(SGOT) 187 U/L (15-37); Alanine Aminotransfer ALT/SGPT 88 U/L (13-56); Albumin, Serum 1.6 g/dL (3.2-5.0); Alkaline Phosphatase 656 U/L (45-117); Anion Gap 9 (5-15); BUN 24 mg/dL (7-18); BUN/Creat Ratio 11.5 RATIO (10-20); Calcium,Total 8.4 mg/dL (8.5-10.1); Chloride 99 mmol/L (98-107); Creatinine, Serum 2.09 mg/dL (0.55-1.02); EST Glomerular Filtration Rate 24 mL/min (>60); Est Glom Filt Rate - Afr Amer 29 mL/min (>60); Estimated Creatinine Clearance 18.06 ml/min; Globulin 4.5 g/dL (2.2-4.2); Glucose 176 mg/dL (74-106); Magnesium 2.1 mg/dL (1.6-2.6); Potassium 4.5 mmol/L (3.5-5.1); Protein, Total 6.1 g/dL (6.4-8.2); Sodium Level 132 mmol/L (136-145)
[2021-08-20 05:59] LABS: Differential Comment SCANNED; Hypochromasia RARE
[2021-08-20] MEDS: Insulin Lispro 100 UNIT/ML INSULN.PEN SC ×2 (06:44→12:57)
[2021-08-20 07:15] LABS: Bedside Glucose 197 mg/dL (70-110)
[2021-08-20] MEDS: Isosorbide Mononitrate 60 MG Tablet PO (09:08)
[2021-08-20] MEDS: Losartan Potassium 50 MG Tablet PO (09:08)
[2021-08-20] MEDS: Aspirin 81 MG TAB.CHEW PO (09:08)
[2021-08-20] MEDS: Potassium Chloride Oral Tablet 20 MEQ PO (09:08)
[2021-08-20] MEDS: Metoprolol Tartrate 50 MG Tablet PO ×2 (09:09→21:48)
[2021-08-20] MEDS: Pantoprazole Sodium 40 MG Tablet PO (09:09)
[2021-08-20] MEDS: Rivaroxaban 15 MG Tablet PO (09:09)
[2021-08-20] MEDS: Furosemide 40 MG Tablet PO ×2 (09:09→18:03)
[2021-08-20] MEDS: Azithromycin 250 MG Tablet 500 MG PO (09:10)
--- NOTE | 2021-08-20 09:47 | PN.HOSP_ITS ---
Subjective Subjective Patient seen and examined. She had no active complaints today. Her blood sugars have improved. Review of systems is otherwise negative. Objective Data Objective Data Vital Signs: Vital Signs Temp Pulse Resp BP Pulse Ox 97.8 F 80 16 108/56 L 96 08/20/21 06:41 08/20/21 09:09 08/20/21 06:41 08/20/21 09:09 08/20/21 07:12 Oxygen Delivery Method Room Air Weight: 209 lb 15.492 oz Body Mass Index (BMI) 37.2 Intake & Output: Intake and Output for Last 24 Hours 08/18/21 08/19/21 08/20/21 23:59 23:59 23:59 Intake Total 1130 / 1130 1402 / 1602 967 / 967 Output Total 500 / 500 600 / 1000 700 / 700 Balance 630 / 630 802 / 602 267 / 267 Lab / Micro Data Result Diagrams: 08/20/21 04:30 08/20/21 04:30 Labs: Laboratory Results - last 24 hr 08/19/21 10:57: POC Glucose 48 L 08/19/21 11:18: POC Glucose 55 L 08/19/21 12:12: POC Glucose 106 08/19/21 16:27: POC Glucose 101 08/19/21 21:37: POC Glucose 133 H 08/20/21 04:30: WBC 9.2, RBC 2.88 L, Hgb 9.5 L, Hct 28.6 L, MCV 99.3 H, MCH 33.0 H, MCHC 33.2, RDW Std Deviation 64.7 H, RDW Coeff of [place] 17.7 H, Plt Count 234, MPV 10.9, Immature Gran % (Auto) 2.300 H, Neut % (Auto) 68.2, Lymph % (Auto) 7.3 L, [place] % (Auto) 21.6 H, Eos % (Auto) 0.3, Baso % (Auto) 0.3, Absolute Neuts (auto) 6.3, Absolute Lymphs (auto) 0.67 L, Nucleated RBC % 0, Differential Comment SCANNED, Hypochromasia RARE 08/20/21 04:30: Sodium 132 L, Potassium 4.5, Chloride 99, Carbon Dioxide 24.0, Anion Gap 9, BUN 24 H, Creatinine 2.09 H, Estim Creat Clear Calc 18.06, Est GFR (MDRD) Af Amer 29 L, Est GFR (MDRD) Non-Af 24 L, BUN/Creatinine Ratio 11.5, Glucose 176 H, Calcium 8.4 L, Magnesium 2.1, Total Bilirubin 5.10 H, AST 187 H, ALT 88 H, Alkaline Phosphatase 656 H, Total Protein 6.1 L, Albumin 1.6 L, Globulin 4.5 H, Albumin/Globulin Ratio 0.4 L 08/20/21 06:38: POC Glucose 197 H Micro: Microbiology 08/18/21 13:05 Nasal Secretion SARS-CoV-2 Antigen (Rapid) - Final Physical Exam Const alert, oriented x3 and no apparent distress Exam Limitations: no limitations HEENT head/scalp atraumatic and moist oral mucous membranes Head and Scalp: normocephalic Neck no lymphadenopathy Resp normal respiratory effort, no retractions, no use of accessory muscles and clear to auscultation bilaterally Cardio regular rate, regular rhythm, S1 normal heart sound, S2 normal heart sound and n o murmurs GI normal to inspection, nondistended, normoactive bowel sounds, soft to palpation, non-tender and non-distended Extremity normal to inspection, full ROM and no clubbing, cyanosis or edema Skin no rashes or lesions noted Neuro oriented x3 and CN's II-XII intact bilaterally Sensorium / Orientation: awake and alert Psych affect normal Assessment & Plan Assessment/Plan (1) Acute respiratory failure with hypoxia: (2) Jaundice: (3) Pneumonia: (4) Liver metastases: PLAN: #Community acquired pneumonia * Chest x-ray on admission showed mild increased markings at the right lung base with possible early infiltrate * Titrate oxygen to maintain saturation above 90%. Breathing treatments of bronchodilators. * On IV ceftriaxone and azithromycin. * Urine for strep and Legionella were negative. * Incentive spirometry. * remains on room air. * #Transaminitis with hyperbilirubinemia * This is due to colon cancer with hepatic metastasis. Abdominal ultrasound done showed multiple masses in the liver. * total bilirubin has trended down to 5.1 today. * Follow-up with oncologist on outpatient basis. * Having palliative chemotherapy per oncology * #Hypoglycemia * blood sugars have improved. Amaryl discontinued * will dc D10 infusion and trend blood sugars. * * * #Type 2 diabetes mellitus: * Glimepiride discontinued in light of hyperglycemia. Insulin sliding scale. Accuchecks ACHS. * #Atrial fibrillation: On Xarelto #Benign essential hypertension: On metoprolol and losartan #Hyperlipidemia: On statin #History of CAD s/p stent and CABG: On aspirin and statin as well as Imdur and metoprolol #Heart failure: not in exacerbation: on lasix 40mg bid. DVT prophylaxis:not indicated as patient is on xarelto. Charges/Coding Visit Charges Inpatient E&M: 69145 Subs Hosp L2
[2021-08-20] MEDS: proCHLORPERazine 10 MG/2 ML Vial 5 MG IV ×2 (10:30→15:00)
[2021-08-20 12:31] LABS: Bedside Glucose 157 mg/dL (70-110)
[2021-08-20] MEDS: guaiFENesin 10 ML UDC (200MG/10ML) PO (15:38)
[2021-08-20] MEDS: Acetaminophen 325 MG Tablet PO (15:39)
[2021-08-20 17:11] LABS: Bedside Glucose 134 mg/dL (70-110)
[2021-08-20] MEDS: Montelukast 10 MG Tablet PO (21:48)
[2021-08-20] MEDS: Simvastatin 20 MG Tablet PO (21:48)
[2021-08-20 23:15] LABS: Bedside Glucose 145 mg/dL (70-110)
[2021-08-21] MEDS: Ondansetron 4 MG/2 ML Vial IV ×4 (01:16→22:15)
[2021-08-21] MEDS: 0.9% Saline Lock 10 ML Syringe IV ×5 (01:16→17:46)
[2021-08-21 05:23] LABS: Absolute Lymphocyte Count 0.76 X10^3/uL (0.83-4.51); Absolute Neutrophil Count 6.5 X10^3/uL (2.0-7.7); Basophil# 0.02 X10^3/uL; Basophil% 0.2 % (0-1); Eosinophil# 0.06 X10^3/uL; Eosinophils% 0.6 % (0-5); Hematocrit 29.7 % (37-47); Hemoglobin 10.1 g/dL (12.0-15.0); Lymphocyte # 0.76 X10^3/ul (0.83-4.51); Mean Corpuscular Hgb 33.6 pg (27.0-32.0); Mean Corpuscular Volume 98.7 fL (81-99); Monocyte# 1.83 X10^3/uL; Monocyte% 19.4 % (0-10); NRBC Flagged by Analyzer 0 % (0-5); Neutrophil # 6.52 X10^3/uL (2.7-7.7); POSITIVE DIFFERENTIAL YES; Platelet Count 252 K/mm3 (150-450); RBC Distribution Width SD 63.8 fl (35.1-43.9); Red Blood Count 3.01 M/mm3 (4.2-5.4); White Blood Count 9.5 K/mm3 (4.4-11.0)
[2021-08-21 05:47] LABS: Differential Indicated SCAN CRITERIA MET
[2021-08-21 05:56] LABS: ALB/GLOB Ratio 0.4 RATIO (0.9-2.4); AST(SGOT) 242 U/L (15-37); Alanine Aminotransfer ALT/SGPT 112 U/L (13-56); Albumin, Serum 1.7 g/dL (3.2-5.0); Alkaline Phosphatase 776 U/L (45-117); Anion Gap 9 (5-15); BUN 27 mg/dL (7-18); BUN/Creat Ratio 13.5 RATIO (10-20); Calcium,Total 8.8 mg/dL (8.5-10.1); Chloride 102 mmol/L (98-107); EST Glomerular Filtration Rate 26 mL/min (>60); Est Glom Filt Rate - Afr Amer 31 mL/min (>60); Estimated Creatinine Clearance 18.87 ml/min; Globulin 4.8 g/dL (2.2-4.2); Glucose 72 mg/dL (74-106); Magnesium 1.9 mg/dL (1.6-2.6); Potassium 4.5 mmol/L (3.5-5.1); Protein, Total 6.5 g/dL (6.4-8.2); Sodium Level 134 mmol/L (136-145)
[2021-08-21 06:14] VITALS: BP 122/66; PULSE 72; RESP 16; TEMP 36.1; O2SAT 100
[2021-08-21 06:44] LABS: Differential Comment SCANNED
[2021-08-21 06:46] LABS: Bedside Glucose 47 mg/dL (70-110)
[2021-08-21 07:00] LABS: Bedside Glucose 96 mg/dL (70-110)
[2021-08-21 07:00] LABS: Bedside Glucose 73 mg/dL (70-110)
[2021-08-21] MEDS: guaiFENesin 10 ML UDC (200MG/10ML) PO ×2 (08:31→16:10)
--- NOTE | 2021-08-21 08:42 | NURSING ---
Sitting up in the chair attempting to eat breakfast. Pt is nauseated. Zofran given. Pt requested something for her cough. Robitussin given. This nurse in the room with pt when Dr. Pyle was also in the room. Dr. Pyle is going to keep pt another day d/t Blood sugar in the mornings are still low. Dr. Pyle wants pt to have a bedtime snack to see if it will improve her Morning Blood Sugars.
[2021-08-21 10:31] VITALS: BP 115/57; PULSE 74
[2021-08-21] MEDS: Metoprolol Tartrate 50 MG Tablet PO ×2 (10:31→21:23)
[2021-08-21] MEDS: Isosorbide Mononitrate 60 MG Tablet PO (10:31)
[2021-08-21] MEDS: Pantoprazole Sodium 40 MG Tablet PO (10:31)
[2021-08-21] MEDS: Losartan Potassium 50 MG Tablet PO (10:32)
[2021-08-21] MEDS: Azithromycin 250 MG Tablet 500 MG PO (10:32)
[2021-08-21] MEDS: Potassium Chloride Oral Tablet 20 MEQ PO (10:32)
[2021-08-21] MEDS: Rivaroxaban 15 MG Tablet PO (10:33)
[2021-08-21] MEDS: Furosemide 40 MG Tablet PO ×2 (10:33→17:40)
[2021-08-21] MEDS: Aspirin 81 MG TAB.CHEW PO (10:33)
[2021-08-21 10:36] VITALS: BP 115/57; PULSE 77; RESP 20; TEMP 36.4; O2SAT 100
[2021-08-21] MEDS: proCHLORPERazine 10 MG/2 ML Vial 5 MG IV ×2 (10:43→17:46)
--- NOTE | 2021-08-21 11:05 | NURSING ---
Still nauseated. Pt states she vomited in the emesis bag and put the bag in the trash. Pt given compazine since recently given zofran.
[2021-08-21 11:40] LABS: Bedside Glucose 113 mg/dL (70-110)
--- NOTE | 2021-08-21 11:50 | PN.HOSP_ITS ---
Subjective Subjective Patient seen and examined. She has no active complaints today and is feeling better. Her blood sugar was low again today, in the 30s. She says she ate dinner early evening the night before and hadnt eaten anything else. Review of systems is otherwise negative. Objective Data Objective Data Vital Signs: Vital Signs Temp Pulse Resp BP Pulse Ox 97.5 F L 77 20 H 115/57 L 100 08/21/21 10:36 08/21/21 10:36 08/21/21 10:36 08/21/21 10:36 08/21/21 10:36 Oxygen Delivery Method Room Air Weight: 209 lb 15.492 oz Body Mass Index (BMI) 37.2 Intake & Output: Intake and Output for Last 24 Hours 08/19/21 08/20/21 08/21/21 23:59 23:59 23:59 Intake Total 1402 / 1602 1697 / 1697 Output Total 600 / 1000 1999 Balance 802 / 602 -303 / -303 Lab / Micro Data Result Diagrams: 08/21/21 04:40 08/21/21 04:40 Labs: Laboratory Results - last 24 hr 08/20/21 12:06: POC Glucose 157 H 08/20/21 16:49: POC Glucose 134 H 08/20/21 21:44: POC Glucose 145 H 08/21/21 04:40: WBC 9.5, RBC 3.01 L, Hgb 10.1 L, Hct 29.7 L, MCV 98.7, MCH 33.6 H, MCHC 34.0, RDW Std Deviation 63.8 H, RDW Coeff of [place] 18.0 H, Plt Count 252, MPV 11.0, Immature Gran % (Auto) 2.800 H, Neut % (Auto) 69.0, Lymph % (Auto) 8.0 L, [place] % (Auto) 19.4 H, Eos % (Auto) 0.6, Baso % (Auto) 0.2, Absolute Neuts (auto) 6.5, Absolute Lymphs (auto) 0.76 L, Nucleated RBC % 0, Differential Comment SCANNED 08/21/21 04:40: Sodium 134 L, Potassium 4.5, Chloride 102, Carbon Dioxide 23.0, Anion Gap 9, BUN 27 H, Creatinine 2.00 H, Estim Creat Clear Calc 18.87, Est GFR (MDRD) Af Amer 31 L, Est GFR (MDRD) Non-Af 26 L, BUN/Creatinine Ratio 13.5, Glucose 72 L, Calcium 8.8, Magnesium 1.9, Total Bilirubin 5.70 H, AST 242 H, ALT 112 H, Alkaline Phosphatase 776 H, Total Protein 6.5, Albumin 1.7 L, Globulin 4.8 H, Albumin/Globulin Ratio 0.4 L 08/21/21 06:16: POC Glucose 47 L 08/21/21 06:39: POC Glucose 73 08/21/21 06:57: POC Glucose 96 08/21/21 11:35: POC Glucose 113 H Micro: Microbiology 08/18/21 18:32 Urine, Midstream Urine Culture - Final Streptococcus agalactiae (B) 08/18/21 13:05 Nasal Secretion SARS-CoV-2 Antigen (Rapid) - Final Physical Exam Const alert, oriented x3 and no apparent distress Exam Limitations: no limitations HEENT head/scalp atraumatic and moist oral mucous membranes Neck no lymphadenopathy Resp normal respiratory effort, no retractions, no use of accessory muscles and clear to auscultation bilaterally Cardio regular rate, regular rhythm, S1 normal heart sound, S2 normal heart sound and no murmurs GI normal to inspection, nondistended, normoactive bowel sounds, soft to palpation, non-tender and non-distended Extremity normal to inspection, full ROM and no clubbing, cyanosis or edema Skin no rashes or lesions noted Skin Narrative: jaundiced Neuro oriented x3 and CN's II-XII intact bilaterally Sensorium / Orientation: awake and alert Psych affect normal Assessment & Plan Assessment/Plan (1) Acute respiratory failure with hypoxia: (2) Jaundice: (3) Pneumonia: (4) Liver metastases: PLAN: #Community acquired pneumonia * Chest x-ray on admission showed mild increased markings at the right lung base with possible early infiltrate * Titrate oxygen to maintain saturation above 90%. Breathing treatments of bronchodilators. * On IV ceftriaxone and azithromycin. Urine for Strep was actually positive. * Urine for Legionella was negative. * Incentive spirometry. * remains on room air. * #Transaminitis with hyperbilirubinemia * This is due to colon cancer with hepatic metastasis. Abdominal ultrasound done showed multiple masses in the liver. * total bilirubin today is up to 6.7. * Follow-up with oncologist on outpatient basis. * Having palliative chemotherapy per oncology * #Hypoglycemia * was hypoglycemic again overnight. Will change diet to a regular diet and liberalise it. Check A1C. 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 Insulin sliding scale. Accuchecks ACHS. * #Atrial fibrillation: On Xarelto #Benign essential hypertension: On metoprolol and losartan #Hyperlipidemia: On statin #History of CAD s/p stent and CABG: On aspirin and statin as well as Imdur and metoprolol #Heart failure: not in exacerbation: on lasix 40mg bid. DVT prophylaxis:not indicated as patient is on xarelto. Charges/Coding Visit Charges Inpatient E&M: 12051 Subs Hosp L2
[2021-08-21 13:06] LABS: Hemoglobin A1c 5.9 % (3.8-5.6)
[2021-08-21 15:55] VITALS: BP 125/67; PULSE 82; RESP 18; TEMP 36.8; O2SAT 99
[2021-08-21 16:20] LABS: Bedside Glucose 80 mg/dL (70-110)
--- NOTE | 2021-08-21 16:22 | NURSING ---
Blood sugar is only 80. -4oz of orange juice given.
--- NOTE | 2021-08-21 18:45 | NURSING ---
This nurse explained importance to using I.S and peep Q1hr while awake, 10 reps. Also importance of moving, getting into chair and staying in chair more then laying in bed. Also importance of laying prone. Pt seems to understand. Pt used I.S and peep after this nurse made pt use. Pt is on HighFlow and on 8 L
[2021-08-21 21:23] VITALS: PULSE 83
[2021-08-21] MEDS: Simvastatin 20 MG Tablet PO (21:23)
[2021-08-21] MEDS: Montelukast 10 MG Tablet PO (21:23)
[2021-08-21 22:00] VITALS: BP 120/56; PULSE 83; RESP 16; TEMP 36.6; O2SAT 98
[2021-08-21 22:36] LABS: Bedside Glucose 94 mg/dL (70-110)
[2021-08-22 03:50] VITALS: O2SAT 96
[2021-08-22 04:00] VITALS: BP 121/72; PULSE 78; RESP 16; TEMP 36.6; O2SAT 96
[2021-08-22 07:05] LABS: Bedside Glucose 70 mg/dL (70-110)
[2021-08-22 07:05] LABS: Bedside Glucose 44 mg/dL (70-110)
[2021-08-22 08:25] LABS: Absolute Lymphocyte Count 0.51 X10^3/uL (0.83-4.51); Absolute Neutrophil Count 6.1 X10^3/uL (2.0-7.7); Basophil# 0.02 X10^3/uL; Basophil% 0.2 % (0-1); Eosinophil# 0.06 X10^3/uL; Eosinophils% 0.7 % (0-5); Hematocrit 31.2 % (37-47); Hemoglobin 10.3 g/dL (12.0-15.0); Lymphocyte # 0.51 X10^3/ul (0.83-4.51); Lymphocyte % 5.7 % (19-41); Mean Platelet Vol. 10.8 fl (6.2-12.0); Monocyte# 1.96 X10^3/uL; Monocyte% 21.8 % (0-10); NRBC Flagged by Analyzer 0 % (0-5); Neutrophil # 6.07 X10^3/uL (2.7-7.7); Neutrophil % 67.6 % (47-70); POSITIVE DIFFERENTIAL YES; POSITIVE MORPHOLOGY YES; Platelet Count 260 K/mm3 (150-450); RBC Distribution Width CV 18.2 % (11.6-14.6); RBC Distribution Width SD 66.4 fl (35.1-43.9); Red Blood Count 3.12 M/mm3 (4.2-5.4)
[2021-08-22 08:30] LABS: Differential Indicated SCAN CRITERIA MET
[2021-08-22 08:53] LABS: ALB/GLOB Ratio 0.3 RATIO (0.9-2.4); AST(SGOT) 265 U/L (15-37); Alanine Aminotransfer ALT/SGPT 126 U/L (13-56); Albumin, Serum 1.7 g/dL (3.2-5.0); Alkaline Phosphatase 877 U/L (45-117); Anion Gap 9 (5-15); BUN 31 mg/dL (7-18); Calcium,Total 8.9 mg/dL (8.5-10.1); Chloride 101 mmol/L (98-107); Creatinine, Serum 2.07 mg/dL (0.55-1.02); EST Glomerular Filtration Rate 25 mL/min (>60); Est Glom Filt Rate - Afr Amer 30 mL/min (>60); Estimated Creatinine Clearance 18.23 ml/min; Globulin 4.9 g/dL (2.2-4.2); Glucose 110 mg/dL (74-106); Magnesium 1.9 mg/dL (1.6-2.6); Potassium 4.6 mmol/L (3.5-5.1); Protein, Total 6.6 g/dL (6.4-8.2); Sodium Level 135 mmol/L (136-145)
[2021-08-22 09:05] LABS: Anisocytosis 1+; Platelet Estimate ADEQUATE (ADEQ); Red Cell Morphology N CHROM NORMAL (NORM C&C)
[2021-08-22 10:54] VITALS: BP 116/65; PULSE 83; RESP 18; TEMP 36.6; O2SAT 98
[2021-08-22] MEDS: Azithromycin 250 MG Tablet 500 MG PO (11:03)
[2021-08-22] MEDS: Isosorbide Mononitrate 60 MG Tablet PO (11:04)
[2021-08-22] MEDS: Losartan Potassium 50 MG Tablet PO (11:04)
[2021-08-22] MEDS: Furosemide 40 MG Tablet PO (11:04)
[2021-08-22 11:05] VITALS: BP 116/65; PULSE 83
[2021-08-22] MEDS: Aspirin 81 MG TAB.CHEW PO (11:05)
[2021-08-22] MEDS: Metoprolol Tartrate 50 MG Tablet PO (11:05)
[2021-08-22] MEDS: Potassium Chloride Oral Tablet 20 MEQ PO (11:05)
[2021-08-22] MEDS: Pantoprazole Sodium 40 MG Tablet PO (11:06)
[2021-08-22] MEDS: guaiFENesin 10 ML UDC (200MG/10ML) PO (11:31)
[2021-08-22] MEDS: 0.9% Saline Lock 10 ML Syringe IV ×2 (11:32→15:58)
[2021-08-22] MEDS: Ondansetron 4 MG/2 ML Vial IV (11:32)
[2021-08-22 12:01] LABS: Bedside Glucose 197 mg/dL (70-110)
--- NOTE | 2021-08-22 12:49 | CHAPLAIN ---
Type of Pastoral Visit _x__ Initial Visit ___ Follow-up Visit ___ On-call Visit ___ General Patient Visit ___ Spiritual Assessment ___ Family Conference ___ Bereavement ___ Rapid Response ___ Code Blue ___ Other (describe below) Pastoral Care Referral From _x__ Patient ___ Family ___ Nurse ___ Physician ___ Rubber Press Tender ___ Hob Grinder ___ Other (describe below) Sacrament/Intervention _x__ Active listening ___ Anointing ___ Uatsdin _x__ Bereavement ___ Communion _x__ Paula exploration ___ _x__ Life review _x__ Prayer ___ Reconciliation ___ Sacrament of Sick _x__ Supportive presence ___ Wedding ___ Other (describe below) Pastoral Comments patient is in stage 4 cancer and was in March; pt presents with positive outlook while being very realistic that this is coming to an end; pt states that her personality and her paula are what is helping her in these days; long talk and prayer
[2021-08-22] MEDS: Rivaroxaban 15 MG Tablet PO (13:03)
--- NOTE | 2021-08-22 13:30 | DS.PCM_ITS ---
Providers Date of Admission: 08/19/21 Primary Care Physician: Dr. Vernon Aguilera MD Reason For Visit: ACUTE HYPOXIC RESP FAILURE Diagnosis Discharge Diagnosis (1) Acute respiratory failure with hypoxia: Status: Acute Code(s): J96.01 - Acute respiratory failure with hypoxia (2) Jaundice: Status: Acute Code(s): R17 - Unspecified jaundice (3) Pneumonia: Status: Acute Code(s): J18.9 - Pneumonia, unspecified organism (4) Liver metastases: Status: Acute Code(s): C78.7 - Secondary malignant neoplasm of liver and intrahepatic bile duct Medications at Discharge Home Medications aspirin 81 mg PO DAILY 01/03/17 cholecalciferol (vitamin D3) 4,000 unit PO DAILY 01/03/17 epinephrine 0.3 mg/0.3 mL injection, auto-injector 0.3 ml SC PRN PRN 1 Days #2 ea 08/17/17 hydrocortisone 2.5 % topical cream 1 applic TOPICAL TID PRN PRN 10 Days #30 08/17/17 montelukast 10 mg tablet 10 mg PO QHS tab 08/17/17 Arnuity Ellipta 100 mcg IH DAILY 03/14/20 albuterol sulfate 2 puff INHALATION DAILY PRN 03/14/20 furosemide 40 mg PO BID 03/14/20 loratadine 10 mg PO DAILY PRN 03/14/20 acyclovir 400 mg tablet 400 mg PO BID tab 12/30/20 magnesium oxide 400 mg (241.3 mg magnesium) tablet 400 mg PO TID tab 12/30/20 nitroglycerin 0.4 mg sublingual tablet 0.4 mg SUBLINGUAL Q5M PRN #25 tab 12/30/20 ondansetron HCl 8 mg tablet 8 mg PO DAILY tab 12/30/20 rivaroxaban 15 mg tablet 15 mg PO DAILY #90 tab 12/30/20 isosorbide mononitrate 60 mg tablet,extended release 24 hr 60 mg PO DAILY #90 tab 05/16/21 potassium chloride 20 mEq tablet,extended release(part/cryst) 20 meq PO DAILY #90 tab 05/16/21 simvastatin 20 mg tablet 20 mg PO QHS #90 tab 05/16/21 metoprolol tartrate 50 mg tablet 50 mg PO BID tab 07/19/21 losartan 50 mg PO DAILY 08/18/21 omeprazole 40 mg PO DAILY 08/18/21 levofloxacin 750 mg PO DAILY #3 tab 08/22/21 Hospital Course Operations None Procedures None Summary of Care Provided Minutes Spent on Discharge: 50 Hospital Course: Patient is 81-year-old female with past medical history significant for colon cancer with metastasis to the liver. She was admitted through the ED on 08/18/2021 with a complaint of worsening shortness of breath with associated nausea and vomiting. She was noted to be hypoxic with oxygen saturation of 75% on room air. Her bilirubin had also risen to 7.7 with a baseline of less than 1. Chest x-ray showed a small infiltrate in the lungs. Covid test was negative. She was admitted and managed for acute hypoxic respiratory failure due to community-acquired pneumonia. She was started on ceftriaxone and azithromycin. Hyperbilirubinemia was thought to be due to the metastatic spread of the cancer to her liver. Hospital course was complicated by early childhood aide classroom hypoglycemia. She was on glimepiride which was discontinued. Her A1C was checked which was 5.9. I spoke to endocrinology, Dr Mabry, about early childhood aide classroom hypoglycemia; her thoughts were that it was likely due to decreased glycogen storage in the liver due to hte extensive hepatic metastases; additionally, the accuracy of the fingersticks were also acquired as per endocrinology, these were not very accurate of low blood sugars. Patient was therefore advised to always have a sugary drink or snack close to her to consume early in the morning, and whenever she felt lightheaded or dizzy or felt like her blood sugar was low. Joseluis remained stable and was discharged home on 08/22/2021. She was counseled to keep a log of her early childhood aide classroom blood sugars to evaluate for hypoglycemia, and to establish care with endocrinology for her hypoglycemia to be addressed. Patient seen and examined prior to discharge. Daughter was by her bedside. She had no active complaints and felt well. Review of systems was otherwise negative. labs and vitals reviewed. Home meds reviewed and reconciled. Physical Exam Const alert, oriented x3 and no apparent distress General Appearance: cooperative, comfortable and well kempt Orientation / Consciousness: awake Exam Limitations: no limitations HEENT normocephalic, head/scalp atraumatic and moist oral mucous membranes Neck no lymphadenopathy Resp normal respiratory effort, no retractions, no use of accessory muscles and clear to auscultation bilaterally Cardio regular rate, regular rhythm, S1 normal heart sound, S2 normal heart sound and no murmurs GI normal to inspection, nondistended, normoactive bowel sounds, soft to palpation, non-tender and non-distended Extremity normal to inspection, full ROM and no clubbing, cyanosis or edema Skin no rashes or lesions noted Skin Narrative: jaundiced Neuro oriented x3 and CN's II-XII intact bilaterally Sensorium / Orientation: awake and alert Psych affect normal Weight / BMI Weight Weight: 209 lb 15.492 oz Body Mass Index (BMI) 37.2 ABG / Lab / Microbiology Data Result Diagrams: 08/22/21 07:50 08/22/21 07:50 Laboratory: Laboratory Results - last 24 hr 08/21/21 16:15: POC Glucose 80 08/21/21 21:23: POC Glucose 94 08/22/21 06:23: POC Glucose 44 L* 08/22/21 06:52: POC Glucose 70 08/22/21 07:50: WBC 9.0, RBC 3.12 L, Hgb 10.3 L, Hct 31.2 L, MCV 100.0 H, MCH 33.0 H, MCHC 33.0, RDW Std Deviation 66.4 H, RDW Coeff of [place] 18.2 H, Plt Count 260, MPV 10.8, Immature Gran % (Auto) 4.000 H, Neut % (Auto) 67.6, Lymph % (Auto) 5.7 L, [place] % (Auto) 21.8 H, Eos % (Auto) 0.7, Baso % (Auto) 0.2, Absolute Neuts (auto) 6.1, Absolute Lymphs (auto) 0.51 L, Nucleated RBC % 0, Differential Comment , Platelet Estimate ADEQUATE, RBC Morphology N CHROM, Anisocytosis 1+ 08/22/21 07:50: Sodium 135 L, Potassium 4.6, Chloride 101, Carbon Dioxide 25.0, Anion Gap 9, BUN 31 H, Creatinine 2.07 H, Estim Creat Clear Calc 18.23, Est GFR (MDRD) Af Amer 30 L, Est GFR (MDRD) Non-Af 25 L, BUN/Creatinine Ratio 15.0, Glucose 110 H, Calcium 8.9, Magnesium 1.9, Total Bilirubin 6.80 H, AST 265 H, ALT 126 H, Alkaline Phosphatase 877 H, Total Protein 6.6, Albumin 1.7 L, Globulin 4.9 H, Albumin/Globulin Ratio 0.3 L 08/22/21 11:02: POC Glucose 197 H Microbiology: Microbiology 08/18/21 18:32 Urine, Midstream Urine Culture - Final Streptococcus agalactiae (B) 08/18/21 13:05 Nasal Secretion SARS-CoV-2 Antigen (Rapid) - Final D/C Instructions Discharge Diet: Low fat / Low cholesterol Discharge Activity: Return to Normal Activity Weight Bearing Status: Weight bearing as tolerated Call your doctor if you observe: Fever of 101 or Higher, Shortness of breath, Dizziness, Swelling in the ankles, Chest pain and Increased palpitations (irre gular heartbeat) Meaningful Use Info Meaningful Use Diagnoses (Choose all that apply): None applicable Discharge Plan Admission Admit Date/Time: 08/19/21 10:28 Primary Reason for Your Visit: community acquired pneumonia, hypoglycemia Attending Provider: Kolton Ramirez Primary Care Provider: Vernon Aguilera Instructions Additional Instructions / Restrictions: always have a sugary snack and drink by you to consume early in the morning on waking up, and whenever sugar is going low. Keep an early childhood aide classroom blood sugar log and present to clinical resource coordinator and PCP for review. Discharge Orders/Prescriptions Prescriptions: New levofloxacin 750 mg tablet 750 mg PO DAILY Qty: 3 RF: 0 Continued epinephrine 0.3 mg/0.3 mL auto-injector 0.3 ml SC PRN PRN (Reason: allergic reaction) 1 Days Qty: 2 RF: 0 montelukast 10 mg tablet 10 mg PO QHS RF: 0 hydrocortisone 2.5 % cream 1 applic TOPICAL TID PRN PRN (Reason: Rash/Topical Irritation) 10 Days Qty: 30 RF: 0 magnesium oxide 400 mg (241.3 mg magnesium) tablet 400 mg PO TID RF: 0 acyclovir 400 mg tablet 400 mg PO BID RF: 0 Xarelto 15 mg tablet 15 mg PO DAILY Qty: 90 RF: 3 nitroglycerin 0.4 mg tablet, sublingual 0.4 mg SUBLINGUAL Q5M PRN (Reason: Cardiac/Chest Pain) Qty: 25 RF: 3 metoprolol tartrate 50 mg tablet 50 mg PO BID RF: 0 aspirin 81 MG tablet,chewable 81 mg PO DAILY RF: 0 cholecalciferol (vitamin D3) 2,000 UNIT capsule 4,000 unit PO DAILY RF: 0 albuterol sulfate 1 PUFF inhaler 2 puff inhalation DAILY PRN (Reason: Sob &/Or Wheezing) RF: 0 loratadine 10 MG tablet 10 mg PO DAILY PRN (Reason: Allergies) RF: 0 Arnuity Ellipta 100 MCG blister with device 100 mcg IH DAILY RF: 0 furosemide 40 MG tablet 40 mg PO BID RF: 0 ondansetron HCl 8 mg tablet 8 mg PO DAILY RF: 0 losartan 50 mg tablet 50 mg PO DAILY RF: 0 omeprazole 40 mg capsule,delayed release(DR/EC) 40 mg PO DAILY RF: 0 simvastatin 20 mg tablet 20 mg PO QHS Qty: 90 RF: 4 isosorbide mononitrate 60 mg tablet extended release 24 hr 60 mg PO DAILY Qty: 90 RF: 4 potassium chloride 20 mEq tablet,ER particles/crystals 20 meq PO DAILY Qty: 90 RF: 4 Discontinued glimepiride 1 mg tablet 1 mg PO DAILY RF: 0 Referrals / Follow Up: Vernon Aguilera MD [Primary Care Provider] - Within 2 Weeks Sujit Vasquez DO [STAFF PHYSICIAN] - Within 2 Weeks Trenton Mabry MD [STAFF PHYSICIAN] - Within 2 Weeks Disposition Disposition (needs filled in before D/C Order can be placed): Home, Self Care Charges/Coding Visit Charges Inpatient E&M: 44563 [facility]
--- NOTE | 2021-08-22 14:41 | CASEMGMT ---
RN CM in to pt room, pt dtr at bedside. Pt to dc today. Pt does not feel she needs HHC at this time. She states she is more interested in private duty and she has a list that was provided to her. She denies further needs.
[2021-08-22 15:32] VITALS: BP 110/61; PULSE 88; RESP 18; TEMP 36.8; O2SAT 99
[2021-08-22 16:31] LABS: Bedside Glucose 173 mg/dL (70-110)
[2021-08-23 10:31] LABS: Pathologist Review Reviewed
== END 2021-08-22 16:45 | disposition home or self-care (01) | DRG 193 ==
LOC: ED 15:03 → MS3 18:04
PROVIDERS: Student in an Organized Health Care Education/Training Program; Admitting Provider Hospitalist; Emergency Provider Emergency Medicine; PCP Family Medicine; Visit Provider Hospitalist
DX: J18.9 Pneumonia, unspecified organism (principal); J96.01 Acute respiratory failure with hypoxia; C18.9 Malignant neoplasm of colon, unspecified; C78.7 Secondary malignant neoplasm of liver and intrahepatic bile duct; I50.32 Chronic diastolic (congestive) heart failure; I48.11 Longstanding persistent atrial fibrillation; Z66 Do not resuscitate; D63.8 Anemia in other chronic diseases classified elsewhere; E11.649 Type 2 diabetes mellitus with hypoglycemia without coma; E66.9 Obesity, unspecified; E78.5 Hyperlipidemia, unspecified; G89.29 Other chronic pain; I11.0 Hypertensive heart disease with heart failure; I25.10 Atherosclerotic heart disease of native coronary artery without angina pectoris; I25.2 Old myocardial infarction; I49.5 Sick sinus syndrome; I65.29 Occlusion and stenosis of unspecified carotid artery; J45.909 Unspecified asthma, uncomplicated; Z68.37 Body mass index [BMI] 37.0-37.9, adult; Z95.1 Presence of aortocoronary bypass graft; Z95.0 Presence of cardiac pacemaker; Z85.3 Personal history of malignant neoplasm of breast; Z79.82 Long term (current) use of aspirin; Z79.01 Long term (current) use of anticoagulants; Z79.899 Other long term (current) drug therapy
CPT/HCPCS: 36415; 36591; 71045; 76705; 80048; 80053; 80076; 81001; 82962; 83036; 83605; 83690; 83735; 83880; 84484; 85025; 85610; 85730; 87077; 87086; 87088; 87186; 87426; 93005; 97110; 97116; 97162; 97165; 97530; 97535; 97802; 99251; 99284; J7040; A4216; G0463; J0696; J2405